=== PATIENT | female | born 1955 | race Caucasian/White ===

== ENCOUNTER 2017-01-10 18:00 | Inpatient (IN) | payer OTHER, BC ==
[~2017-01-10] VITALS: Ht 152.4 cm; Wt 84.5 kg
[~2017-01-10 18:00] MED LIST: ALBUAER PO; ASPI81TA28 PO; ATOR-26 PO; ATV/1 PO; CHOL2000 PO; FERRTAB18 PO; FLUT0.15 NAE; FLV1 PO; FLVHFA110 INH; FRS/40 PO; INSU100I17 SC; INSU1INJ7 SC; IPRA1AER2 INH; LISI-729 PO; METF1000 PO; METO25TA56 PO; NTRGSL/4 UT; ONDA4TAB46 PO; POTA10CA28 PO; PRLSR20 PO; VENL150T33 PO; WARF4TAB PO
[2017-01-10 19:07] LABS: BASO % 0.4 %; BASO ABS # 0.02 K/uL (0-0.2); HEMATOCRIT 24.6 % (37-47); IG% 0.2 %; LYMPH ABS # 1.13 K/uL (1.2-3.4); MEAN CELL VOLUME 80.1 fL (80-100); MEAN CORPUSCULAR HEMOGLOBIN 23.5 pg (25-34); MEAN CORPUSCULAR HGB CONC 29.3 g/dl (32-36); MEAN PLATELET VOLUME 10.1 fL (7.4-10.4); MONO % 10.2 %; NEUT % 62.2 %; PLATELET COUNT 242 K/uL (130-400); RED BLOOD COUNT 3.07 M/uL (4.2-5.4); WHITE BLOOD COUNT 4.52 K/uL (4.8-10.8)
[2017-01-10 19:26] LABS: ALT/SGPT 31 U/L (12-78); BLOOD UREA NITROGEN 14 mg/dl (7-18); BUN/CREATININE RATIO 21.8 (10-20); CALCIUM 9.2 mg/dl (8.5-10.1); CARBON DIOXIDE 28 mmol/L (21-32); CHLORIDE 102 mmol/L (98-107); CREATININE 0.65 mg/dl (0.60-1.20); GLUCOSE 208 mg/dl (70-99); POTASSIUM 3.9 mmol/L (3.5-5.1); SODIUM 138 mmol/L (136-145)
[2017-01-10 19:29] LABS: ALKALINE PHOSPHATASE 71 U/L (45-117); AST/SGOT 30 U/L (15-37)
[2017-01-10 19:36] LABS: INR 5.4 (0.9-1.1); PARTIAL THROMBOPLASTIN RATIO 1.7; PROTHROMBIN TIME (PATIENT) 61.6 SECONDS (9.0-12.0)
[2017-01-10 19:42] LABS: ANISOCYTOSIS PRESENT; COMPLETE YES; HYPOCHROMIA PRESENT; POLYCHROMASIA 1+
--- NOTE | 2017-01-10 20:05 | DIAGNOSTIC IMAGING REPORT ---
ABDOMEN 2VIEW W/PA CHEST RTN CLINICAL HISTORY: ABDOMINAL PAIN/GI COMPARISON STUDY: 07/26/2016 FINDINGS: Moderate cardiomegaly. Prior median sternotomy and valve replacement. Prominent pulmonary vasculature. Nonobstructive bowel pattern. Findings suggesting a ventral hernia repair. IMPRESSION: 1. Nonobstructive bowel pattern. 2. Cardiomegaly. Electronically signed by: Wing Welch M.D. 01/10/2017 8:03 PM Dictated Date/Time: 01/10/2017 8:02 PM
[2017-01-10] MEDS ORDERED: CMD6 PO (20:20)
[2017-01-10] MEDS ORDERED: TRAM-10 PO (20:20)
[2017-01-10] MEDS ORDERED: INSDGI SC (20:21)
[2017-01-10] MEDS ORDERED: DIPH-437 PO (20:27)
[2017-01-10] MEDS ORDERED: INSU100I SQ (20:27)
[2017-01-10] MEDS ORDERED: BSP/5 PO (20:27)
[2017-01-10 20:40] LABS: URINE APPEARANCE CLEAR (CLEAR); URINE BILIRUBIN NEG (NEG); URINE COLOR DK YELLOW; URINE EPITHELIAL CELL AUTO >30 /lpf (0-5); URINE NITRITE NEG (NEG); URINE PH 6.5 (4.5-7.5); URINE SPECIFIC GRAVITY 1.028 (1.000-1.030); UROBILINOGEN NEG (NEG)
[2017-01-10 20:42] LABS: MANUAL MICROSCOPIC REQUIRED? NO; REVIEW REQ? YES
[2017-01-10] MEDS ORDERED: ONDANSETRON INJ 2 MG/ML 2 ML VIAL IV PRN (21:00)
[2017-01-10] MEDS ORDERED: IPRATROPIUM BROMIDE/ALBUTEROL respimat INH INH PRN (21:00)
[2017-01-10] MEDS ORDERED: NITROGLYCERIN 0.4 MG SL PER TAB CHARGE SL PRN (21:00)
[2017-01-10] MEDS ORDERED: FLUTICASONE HFA 110MCG INHALER INH PRN (21:00)
[2017-01-10] MEDS ORDERED: ALBUTEROL HFA 8 GM INHALER INH PRN (21:00)
[2017-01-10] MEDS ORDERED: FLUTICASONE PROPIONATE NA SPR 16 GM BTL NAE PRN (21:00)
[2017-01-10] MEDS ORDERED: GLUCAGON FOR INJ 1 MG VIAL SQ PRN (21:30)
[2017-01-10] MEDS ORDERED: GLUCOSE 40% GEL 15 GM TUBE PO PRN (21:30)
[2017-01-10] MEDS ORDERED: DEXTROSE 50% 50 ML SYR IV PRN (21:30)
[2017-01-10] MEDS ORDERED: GLUCOSE 10 TABS/TUBE PO PRN (21:30)
--- NOTE | 2017-01-10 21:40 | History and Physical ---
History & Physical Date & Time of Service: Jan 10, 2017 at 21:01 Chief Complaint: Need Blood,Dizzy,Referred Primary Care Physician: Luis Melo D.O. History of Present Illness Source: patient This is a 61 y/o female with PMHx of CAD s/p CABG and stent placement, AVR replacement on Coumadin, Insulin-dependent DM 2, HTN, Dyslipidemia and other problems as outlined below who presents to the ED de to abnormal outpatient lab results. Pt received a call from PCP (Dr. Melo) office instructing her to go to the emergency room due to a low hemoglobin of 6.9. Pt does admit she has experienced exertional SOB and occ lightheadedness over the past few days. She has also had intermitted LLQ abd pain. Pt has a history of GI bleed in July 2016 at which time she was transfused 4 units pRBCs. Per patient she had an EGD and colonoscopy however they were unable to find the source of the bleed. She required another transfusion of 4 units in October. Since that time, her HgB has been around 9.5. Pts stool is always dark as she takes an iron pill however she denies hematochezia or melena. She is on Coumadin for an AVR. Pt denies fever/chills, diaphoresis, chest pain, syncope, wheezing, N/V, bowel or bladder issues, LE edema or calf pain. In the ED, vitals are stable. HgB 7.2. INR 5.4. Chest/abd xray is negative. Pt is stable and will be admitted for further evaluation and treatment. Past Medical/Surgical History Medical Problems: (1) ASCVD (arteriosclerotic cardiovascular disease) Status: Chronic (2) Asthma Status: Chronic (3) Cirrhosis Status: Chronic (4) Depression Status: Chronic (5) DM type 2 (diabetes mellitus, type 2) Status: Chronic (6) Dyslipidemia Status: Chronic (7) GERD (gastroesophageal reflux disease) Status: Chronic (8) VIDHI (iron deficiency anemia) Status: Chronic Surgical Problems: (1) H/O aortic valve replacement Status: Chronic (2) H/O pericardiectomy Status: Chronic (3) H/O ventral hernia repair Status: Chronic (4) History of incisional hernia repair Status: Chronic (5) Hx of cholecystectomy Status: Chronic (6) Hx of tonsillectomy Status: Chronic (7) S/P angioplasty with stent Status: Chronic Family History Patient reports no known family medical history. Social History Smoking Status: Never Smoker Alcohol Use: none Drug Use: none Marital Status: Housing status: lives with family Occupational Status: retired Immunizations History of Influenza Vaccine: Yes History of Tetanus Vaccine?: Yes History of Pneumococcal: Yes History of Hepatitis B Vaccine: No Multi-Drug Resistant Organisms History of MDRO: No Allergies Coded Allergies: Erythromycin (Verified Allergy, Mild, 01/10/17) Tetracycline (Verified Allergy, Mild, 01/10/17) Ciprofloxacin (Verified Allergy, Unknown, `, 01/10/17) Hydrocodone (Verified Allergy, Unknown, `, 01/10/17) Sulfa Antibiotics (Verified Allergy, Unknown, Unknown rxn, 01/10/17) Home Medications Scheduled Acetaminophen/Diphenhydramine (Tylenol Pm), 1 TAB PO HS Aspirin (Aspirin Ec), 81 MG PO DAILY Atorvastatin (Lipitor), 80 MG PO QPM Buspirone HCl (Buspirone HCl), 5 MG PO BID Cholecalciferol (Vitamin D3), 2,000 UNIT PO DAILY Folic Acid (Folic Acid), 2 MG PO DAILY Furosemide (Lasix), 40 MG PO BID Insulin Glargine (Lantus), 40 UNITS SC QPM Insulin Lispro (Human) (Humalog), 15 UNITS SQ TIDM Iron-Vitamin C (Vitron-C), 1 TAB PO QPM Lisinopril (Zestril), 5 MG PO QAM Metformin Hcl (Glucophage), 1,000 MG PO BID Metoprolol Tartrate (Lopressor) (Lopressor), 25 MG PO BID Omeprazole (Prilosec), 20 MG PO DAILY Potassium Chloride (Micro-K Ext Rel), 20 MEQ PO AMPM Tramadol (Ultram), 50 MG PO QAM Venlafaxine Hcl (Venlafaxine Hcl Er), 150 MG PO QAM Warfarin Sod (Coumadin), 6 MG PO 5XWK Warfarin Sodium (Coumadin), 4 MG PO 2XWK Scheduled PRN Albuterol Sulfate (Proventil Hfa), 2 PUFFS PO QID PRN for SOB/Wheezing Fluticasone Propionate (Flovent Hfa), 2 PUFFS INH BID PRN for SOB/Wheezing Fluticasone Propionate (Nasal) (Flonase Allergy Relief), 2 SPRAYS BENITO DAILY PRN for Nasal Congestion Ipratropium-Albuterol (Combivent Respimat), 2 PUFFS INH BID PRN for SOB/Wheezing Nitroglycerin (Nitrostat), 0.4 MG UT UD PRN for Chest Pain Ondansetron Hcl (Zofran), 4 MG PO Q6 PRN for Nausea Review of Systems Constitutional: No chills, No fatigue, No fever, No weakness Eyes: No worsening of vision ENT: No hearing loss Respiratory: + dyspnea on exertion, No cough, No dyspnea at rest Cardiovascular: No chest pain, No claudication, No edema, No palpitations Abdomen: + pain (intermittent LLQ pain ), No GI bleeding, No constipation, No diarrhea, No nausea, No vomiting Musculoskeletal: No calf pain, No swelling Genitourinary - Female: No dysuria Neurologic: No weakness Psychiatric: No depression symptoms Endocrine: No fatigue Hematologic / Lymphatic: No abnormal bleeding/bruising Integumentary: No new/changing skin lesions Physical Exam Vital Signs Date Time Temp Pulse Resp B/P Pulse Ox O2 Delivery O2 Flow Rate FiO2 01/10/17 19:09 80 18 107/60 97 Room Air 01/10/17 18:24 36.9 82 18 100/64 97 Room Air General Appearance: WD/WN, no apparent distress, + pertinent finding (Pt is sitting up comfortably in bed ) Head: normocephalic, atraumatic Eyes: normal inspection ENT: hearing grossly normal Neck: supple Respiratory/Chest: chest non-tender, lungs clear, normal breath sounds, no respiratory distress Cardiovascular: regular rate, rhythm, no edema, + systolic murmur (click) Abdomen/GI: soft, + tenderness (mild tenderness to left upper and lower quadrants ), + pertinent finding (diminished bowel sounds) Back: normal inspection Extremities/Musculoskelatal: normal inspection, no calf tenderness, no pedal edema Neurologic/Psych: alert, normal mood/affect, oriented x 3 Skin: normal color Diagnostics Laboratory Results Results Past 24 Hours Test 01/10/17 18:35 01/10/17 20:00 Range/Units White Blood Count 4.52 4.8-10.8 K/uL Red Blood Count 3.07 4.2-5.4 M/uL Hemoglobin 7.2 12.0-16.0 g/dL Hematocrit 24.6 37-47 % Mean Corpuscular Volume 80.1 80-100 fL Mean Corpuscular Hemoglobin 23.5 25-34 pg Mean Corpuscular Hemoglobin Concent 29.3 32-36 g/dl Platelet Count 242 130-400 K/uL Mean Platelet Volume 10.1 7.4-10.4 fL Neutrophils (%) (Auto) 62.2 % Lymphocytes (%) (Auto) 25.0 % Monocytes (%) (Auto) 10.2 % Eosinophils (%) (Auto) 2.0 % Basophils (%) (Auto) 0.4 % Neutrophils # (Auto) 2.81 1.4-6.5 K/uL Lymphocytes # (Auto) 1.13 1.2-3.4 K/uL Monocytes # (Auto) 0.46 0.11-0.59 K/uL Eosinophils # (Auto) 0.09 0-0.5 K/uL Basophils # (Auto) 0.02 0-0.2 K/uL RDW Standard Deviation 51.5 36.4-46.3 fL RDW Coefficient of Variation 17.6 11.5-14.5 % Immature Granulocyte % (Auto) 0.2 % Immature Granulocyte # (Auto) 0.01 0.00-0.02 K/uL Polychromasia 1+ Hypochromasia PRESENT Anisocytosis PRESENT Prothrombin Time 61.6 9.0-12.0 SECONDS Prothromb Time International Ratio 5.4 0.9-1.1 Activated Partial Thromboplast Time 43.2 21.0-31.0 SECONDS Partial Thromboplastin Ratio 1.7 Sodium Level 138 136-145 mmol/L Potassium Level 3.9 3.5-5.1 mmol/L Chloride Level 102 98-107 mmol/L Carbon Dioxide Level 28 21-32 mmol/L Anion Gap 8.0 3-11 mmol/L Blood Urea Nitrogen 14 7-18 mg/dl Creatinine 0.65 0.60-1.20 mg/dl Est Creatinine Clear Calc Drug Dose 86.5 ml/min Estimated GFR () 109.5 Estimated GFR (Non- 94.5 BUN/Creatinine Ratio 21.8 10-20 Random Glucose 208 70-99 mg/dl Calcium Level 9.2 8.5-10.1 mg/dl Total Bilirubin 0.4 0.2-1 mg/dl Direct Bilirubin < 0.1 0-0.2 mg/dl Aspartate Amino Transf (AST/SGOT) 30 15-37 U/L Alanine Aminotransferase (ALT/SGPT) 31 12-78 U/L Alkaline Phosphatase 71 45-117 U/L Total Protein 7.3 6.4-8.2 gm/dl Albumin 3.3 3.4-5.0 gm/dl Lipase 174 73-393 U/L Urine Color DK YELLOW Urine Appearance CLEAR CLEAR Urine pH 6.5 4.5-7.5 Urine Specific [place] 1.028 1.000-1.030 Urine Protein 1+ NEG Urine Glucose (UA) TRACE NEG Urine Ketones NEG NEG Urine Occult Blood NEG NEG Urine Nitrite NEG NEG Urine Bilirubin NEG NEG Urine Urobilinogen NEG NEG Urine Leukocyte Esterase SMALL NEG Urine WBC (Auto) 5-10 0-5 /hpf Urine RBC (Auto) 5-10 0-4 /hpf Urine Hyaline Casts (Auto) 5-10 0-5 /lpf Urine Epithelial Cells (Auto) >30 0-5 /lpf Urine Bacteria (Auto) NEG NEG Urine Renal Epithelial Cells 0-5 /lpf Diagnostic Radiology CXR IMPRESSION: 1. Nonobstructive bowel pattern. 2. Cardiomegaly. EKG EKG: NSR at 80 bom with no acute ischemic changes; no change when compared with EKG from 01/10/17 Impression Assessment and Plan ANEMIA; ? GI BLEED pt presented to the ED due to abnormal outpatient labs (HgB 6.9) -admit to telemetry -RFs include anticoagulation -FOBT is positive in ED -colonoscopy 07/2016 negative; EGD 07/2016 + gastritis otherwise unremarkable -Hgb currently 7.2; will continue to monitor with H&H q 8h -transfuse 2 units pRBCs now; cont to transfuse PRN -hold ASA and Coumadin -start Protonix -consult GI, Dr. Wasserman-pending input -pt appears to be hemodynamically stable -continue to monitor closely SUPRATHERAPEUTIC INR -INR 5.4 -hold Coumadin -monitor INR daily INSULIN-DEPENDENT DM 2 -recent A1C 7.7 -hold Metformin, Lantus and Humalog -start ISS -cont to monitor BSG AC HS H/O AORTIC VALVE REPLACEMENT -AVR 2003 -hold Coumadin in setting of possible GI bleed CORONARY ARTERY DISEASE -s/p CABG x 1 in 2010 and stent x 2 in Jun 2016 -hold ASA -cont metoprolol and statin -pt currently denies chest pain ASTHMA; MILD PERSISTENT -cont inhalers -no evidence of exacerbation DEPRESSION/ANXIETY -son in October at the age of 39; pt is slowly recovering but states she is doing better -cont Effexor and Buspar HTN -BP stable -cont lisinopril and metoprolol -monitor DYSLIPIDEMIA -cont statin DVT PROPHYLAXIS -SCDs only in setting of GI bleed CODE STATUS -FULL CODE status DISPO Pt seen in collaboration with Dr Miranda. Please see his addendum for further details. Thanks! -Of note: patient will be followed by Dr. Verdin starting tomorrow AM. VTE Prophylaxis VTE Risk Assessment Done? Y/N: Yes Risk Level: Moderate Note ATTENDING ADDENDUM Record reviewed. Patient interviewed and examined. Care coordinated with Loida Payne PA-C. Please refer to her documentation for patient's history. Briefly, 61 YO female with history of chronic blood loss anemia. Other problems include CAD, CHF, AVR on warfarin, hypertension, DM. EGD March 2016 was negative. Colonoscopy 2013 showed adenomatous polyp. Patient indicates that she has also had capsule endoscopy. Recurrent anemia Jul 2016. Transfused with 4 units pRBC's. EGD showed mild gastritis without active bleeding. Colonoscopy revealed hemorrhoids, small polyp. Presented to ED with fatigue and SOB. Hgb = 7.0. Stools brown, heme +. EXAM: General- no acute distress VS- as noted HEENT- anicteric Neck- slight JVD; ? diffuse thyromegaly Lungs- clear Heart- RRR, mechanical valve sounds aortic position Abdomen- + BS, soft, nontender Extremities- no pretibial edema or calf tenderness Neuro- alert DATA: Lab studies as noted. CXR- cardiomegaly without CHF. EKG- NSR, no acute changes ASSESSMENT AND PLAN: Anemia due to chronic GI blood loss. Must continue warfarin and antiplatelet meds due to [facility] AVR, CAD with stents. Has undergone at least 2 EGD's and 2 colonoscopies over the past 2 years; also had capsule endoscopy. No need to repeat GI work-up at this time. Transfuse to maintain adequate Hgb, tentatively > 9. INR elevated. Best to hold, but not reverse, warfarin. Follow INR and titrate warfarin dose. ? thyromegaly- check TSH. Please refer to EDILIA Payne's documentation for discussion of other issues. Leobardo Miranda MD .
[2017-01-10 22:44] VITALS: Ht 152.4 cm; Wt 84.5 kg
[2017-01-10 23:35] VITALS: BP 103/63; PULSE 78; TEMP 36.6; O2SAT 96
[2017-01-10] MEDS: ATORVASTATIN 40 MG TAB PO SCH (23:59)
[2017-01-10] MEDS: FUROSEMIDE 40 MG TAB PO SCH (23:59)
[2017-01-11] VITALS (16 sets, daily range): BP systolic 91–135; BP diastolic 57–79; PULSE 65–90; TEMP 36.4–36.8; O2SAT 92–98
[2017-01-11] MEDS: POTASSIUM CHLORIDE 10 MEQ TABCR PO SCH ×3 (00:01→21:19)
[2017-01-11] MEDS: METOPROLOL TARTRATE 25 MG TAB PO SCH ×3 (00:03→21:20)
[2017-01-11] MEDS: ACETAMINOPHEN 325 MG TAB PO PRN ×2 (00:07→21:22)
--- NOTE | 2017-01-11 02:35 | EMERGENCY ROOM VISIT NOTE ---
ED Visit Note First contact with patient: 18:32 Chief Complaint: Low hemoglobin and hematocrit testing. History of Present Illness: Ms. Reyes is a 61-year-old white female who ambulates into the ED accompanied by her daughter reporting she had a hemoglobin and hematocrit testing done earlier today and was found to be low and she was referred to the ED for further evaluation and care. Historically patient reports she had a GI bleed last July and since that time has had moderate anemia. She is currently doing iron supplements the last 2 months. Additionally she reports that she is status post aortic valve replacement and is currently on Coumadin therapy. Currently patient's only complaints is mild lightheadedness and intermittent mild left lower quadrant abdominal pain over the last 30 days. Currently she is pain-free but does report that she has lightheadedness with moving from the sitting to the standing position. She has no other complaints at this time and denies headache, upper respiratory tract symptoms, cough, wheezing, shortness of breath, chest pain, abdominal pain , nausea, vomiting, diarrhea, constipation, rectal bleeding, black/tarry stools , urinary symptoms, hematuria, easy bleeding, easy bruising. Review of Systems: As noted above in history of present illness. All body systems were reviewed and found to be negative as noted above. Past Medical History: (1) Anemia (2) ASCVD (arteriosclerotic cardiovascular disease) (3) Asthma (4) Cirrhosis (5) Depression (6) DM type 2 (diabetes mellitus, type 2) (7) Dyslipidemia (8) GERD (gastroesophageal reflux disease) (9) VIDHI (iron deficiency anemia) Surgical Problems: (1) H/O aortic valve replacement (2) H/O pericardiectomy (3) H/O ventral hernia repair (4) History of incisional hernia repair (5) Hx of cholecystectomy (6) Hx of tonsillectomy (7) S/P angioplasty with stent Current Medications: Medications Dose Route/Sig Max Daily Dose Days Date Category Dose Instructions Tylenol Pm (Acetaminophen/Diphenhydramine HCl) 500 Mg/25 Mg Tab 1 Tab PO HS 01/10/17 Reported Buspirone HCl 5 Mg Tab 5 Mg PO BID 01/10/17 Reported Humalog (Insulin Lispro (Human)) 100 Unit/Ml Inj 15 Units SQ TIDM 01/10/17 Reported Lantus (Insulin Glargine) 100 Unit/Ml Inj 40 Units SC QPM 3/27/17 Reported Ultram (Tramadol HCl) 50 Mg Tab 50 Mg PO QAM 01/10/17 Reported Coumadin (Warfarin Sod) 6 Mg Tab 6 Mg PO 5XWK 01/10/17 Reported Flonase Allergy Relief (Fluticasone Propionate (Nasal)) 50 Mcg/Act Spr 2 Sprays BENITO DAILY PRN 07/26/16 Reported Proventil Hfa (Albuterol Sulfate) 108 Mcg/Act Aer 2 Puffs PO QID PRN 07/26/16 Reported Flovent Hfa (Fluticasone Propionate) 120 Puffs/48174 Mcg Aero 2 Puffs INH BID PRN 07/26/16 Reported Zofran (Ondansetron HCl) 4 Mg Tab 4 Mg PO Q6 PRN 07/26/16 Reported Vitamin D3 (Cholecalciferol) 2,000 Unit Cap 2,000 Unit PO DAILY 07/26/16 Reported Venlafaxine Hcl Er (Venlafaxine Hcl) 150 Mg Tab 150 Mg PO QAM 07/26/16 Reported Lipitor (Atorvastatin Calcium) 80 Mg Tab 80 Mg PO QPM 07/26/16 Reported Prilosec (Omeprazole) 20 Mg Capcr 20 Mg PO DAILY 07/26/16 Reported Nitrostat (Nitroglycerin) 0.4 Mg Tab 0.4 Mg UT UD PRN 07/26/16 Reported Coumadin (Warfarin Sodium) 4 Mg Tab 4 Mg PO 2XWK 07/26/16 Reported TUESDAY AND TUESDAY ONLY Combivent Respimat (Ipratropium-Albuterol) 1 Aer Aer 2 Puffs INH BID PRN 07/26/16 Reported Aspirin Ec (Aspirin) 81 Mg Tab 81 Mg PO DAILY 07/26/16 Reported Vitron-C (Iron-Vitamin C) 1 Tab Tab 1 Tab PO QPM 02/18/16 Reported Folic Acid 1 Mg Tab 2 Mg PO DAILY 02/18/16 Reported Glucophage (Metformin Hcl) 1,000 Mg Tab 1,000 Mg PO BID 01/24/12 Reported Lopressor (Metoprolol Tartrate) 25 Mg Tab 25 Mg PO BID 01/24/12 Reported Zestril (Lisinopril) 5 Mg Tab 5 Mg PO QAM 01/24/12 Reported Lasix (Furosemide) 40 Mg Tab 40 Mg PO BID 10/12/06 Reported Micro-K Ext Rel (Potassium Chloride) 10 Meq Capcr 20 Meq PO AMPM 10/12/06 Reported Allergies to Medications: Ciprofloxacin, erythromycin, hydrocodone, sulfa, tetracycline. Social History: Patient is currently retired; she feels safe in her home environment; she denies tobacco and alcohol use. Physical Examination: Vital Signs: Date Time Temp Pulse Resp B/P Pulse Ox O2 Delivery O2 Flow Rate FiO2 01/10/17 19:09 80 18 107/60 97 Room Air 01/10/17 18:24 36.9 82 18 100/64 97 Room Air GENERAL: 61-year-old female in no acute distress, nontoxic-appearing, afebrile and hemodynamically stable. NEUROLOGICAL: Awake, alert and oriented to person, place and time. Answering questions appropriately and following commands. Normal gait. Good hand eye coordination. No focal motor sensory deficits. SKIN: Warm, dry and pale. No soft tissue eruptions or trauma noted. HEENT: Atraumatic and normocephalic. PERRLA. Sclera white and conjunctiva pale. No drainage from naris. Oral cavity moist and pink. Pharynx is nonerythematous or edematous. Speech normal. No lymphadenopathy. Trachea midline. No jugular venous distention. BACK: No tenderness over the bony spine. No CVA tenderness. THORAX: Lungs sounds are clear to auscultation and equal bilaterally with symmetrical chest wall. No wheezing, rales or rhonchi. No crepitus, tenderness , subcutaneous air or deformities noted. HEART: Regular rate and rhythm. No gallops, rubs or murmurs are appreciated. ABDOMEN: Flat, soft and nontender. Positive bowel sounds in all quadrants. No guarding, rigidity or organomegaly. RECTAL: There are some few small hemorrhoids externally with no active bleeding. Normal rectal tone. No palpable rectal masses. No gross blood or melena. Trace positive guaiac testing. EXTREMITIES: Moves all extremities well on command and with purpose. All distal neurovascular statuses are intact and equal bilaterally. No calf tenderness or cords. ED Course: Patient is assessed as noted above. Laboratory Testing: Test 01/10/17 18:35 01/10/17 20:00 Range/Units White Blood Count 4.52 4.8-10.8 K/uL Red Blood Count 3.07 4.2-5.4 M/uL Hemoglobin 7.2 12.0-16.0 g/dL Hematocrit 24.6 37-47 % Mean Corpuscular Volume 80.1 80-100 fL Mean Corpuscular Hemoglobin 23.5 25-34 pg Mean Corpuscular Hemoglobin Concent 29.3 32-36 g/dl Platelet Count 242 130-400 K/uL Mean Platelet Volume 10.1 7.4-10.4 fL Neutrophils (%) (Auto) 62.2 % Lymphocytes (%) (Auto) 25.0 % Monocytes (%) (Auto) 10.2 % Eosinophils (%) (Auto) 2.0 % Basophils (%) (Auto) 0.4 % Neutrophils # (Auto) 2.81 1.4-6.5 K/uL Lymphocytes # (Auto) 1.13 1.2-3.4 K/uL Monocytes # (Auto) 0.46 0.11-0.59 K/uL Eosinophils # (Auto) 0.09 0-0.5 K/uL Basophils # (Auto) 0.02 0-0.2 K/uL RDW Standard Deviation 51.5 36.4-46.3 fL RDW Coefficient of Variation 17.6 11.5-14.5 % Immature Granulocyte % (Auto) 0.2 % Immature Granulocyte # (Auto) 0.01 0.00-0.02 K/uL Polychromasia 1+ Hypochromasia PRESENT Anisocytosis PRESENT Prothrombin Time 61.6 9.0-12.0 SECONDS Prothromb Time International Ratio 5.4 0.9-1.1 Activated Partial Thromboplast Time 43.2 21.0-31.0 SECONDS Partial Thromboplastin Ratio 1.7 Sodium Level 138 136-145 mmol/L Potassium Level 3.9 3.5-5.1 mmol/L Chloride Level 102 98-107 mmol/L Carbon Dioxide Level 28 21-32 mmol/L Anion Gap 8.0 3-11 mmol/L Blood Urea Nitrogen 14 7-18 mg/dl Creatinine 0.65 0.60-1.20 mg/dl Est Creatinine Clear Calc Drug Dose 86.5 ml/min Estimated GFR () 109.5 Estimated GFR (Non- 94.5 BUN/Creatinine Ratio 21.8 10-20 Random Glucose 208 70-99 mg/dl Calcium Level 9.2 8.5-10.1 mg/dl Total Bilirubin 0.4 0.2-1 mg/dl Direct Bilirubin < 0.1 0-0.2 mg/dl Aspartate Amino Transf (AST/SGOT) 30 15-37 U/L Alanine Aminotransferase (ALT/SGPT) 31 12-78 U/L Alkaline Phosphatase 71 45-117 U/L Total Protein 7.3 6.4-8.2 gm/dl Albumin 3.3 3.4-5.0 gm/dl Lipase 174 73-393 U/L Urine Color DK YELLOW Urine Appearance CLEAR CLEAR Urine pH 6.5 4.5-7.5 Urine Specific [place] 1.028 1.000-1.030 Urine Protein 1+ NEG Urine Glucose (UA) TRACE NEG Urine Ketones NEG NEG Urine Occult Blood NEG NEG Urine Nitrite NEG NEG Urine Bilirubin NEG NEG Urine Urobilinogen NEG NEG Urine Leukocyte Esterase SMALL NEG Urine WBC (Auto) 5-10 0-5 /hpf Urine RBC (Auto) 5-10 0-4 /hpf Urine Hyaline Casts (Auto) 5-10 0-5 /lpf Urine Epithelial Cells (Auto) >30 0-5 /lpf Urine Bacteria (Auto) NEG NEG Urine Renal Epithelial Cells 0-5 /lpf Acute Abdominal Series: Was read by myself and the radiologist showing no acute infiltrates, effusions or pneumothorax. Cardiomegaly. No free air under the diaphragm. Nonobstructive bowel gas pattern. Patient was reassessed multiple times during her stay in the emergency department. Patient's case was reviewed with Dr. Wilson; we agreed on diagnostic approach , treatment, disposition and plan. Patient's case was consulted with Dr. Lee, [facility] [employer]; he recommended a watch and wait approach for her laboratory tests to see how they will trend. Patient's case was consulted with disease case manager rn and Ms. Arredondo, [facility], for medical observation/admission. Patient was educated about tonight's findings. Clinical Impression: Acute on chronic anemia. Supratherapeutic INR. Decision-Making: Initially my differential diagnosis I considered multiple causes of upper and lower GI tract bleeding, elevated INR and other causes. Disposition and Plan: Patient be brought in the hospital by Ms. Payne; please see her notes and orders for final disposition and plan.
[2017-01-11 02:59] LABS: HEMATOCRIT 24.7 % (37-47)
[2017-01-11] MEDS ORDERED: ACETAMINOPHEN 325 MG TAB PO STA (04:27)
[2017-01-11 06:53] LABS: OVALOCYTES 1+
[2017-01-11] MEDS: PANTOprazole INJ 40 MG in SYRINGE 0 ML IV SCH (08:48)
[2017-01-11] MEDS: VENLAFAXINE HCL XR 150 MG CAPXR PO SCH (08:48)
[2017-01-11] MEDS: LISINOPRIL 5 MG TAB PO SCH (08:49)
[2017-01-11] MEDS: FUROSEMIDE 40 MG TAB PO SCH ×2 (08:49→17:16)
[2017-01-11] MEDS: CHOLECALCIFEROL 1000 INTER.UNIT TAB PO SCH (08:50)
[2017-01-11] MEDS: INSULIN ASPART 100 UNITS/ML 3 ML PEN SC SCH ×4 (08:53→21:31)
[2017-01-11] MEDS ORDERED: PANTOprazole SOD 40 MG TAB PO SCH (09:00)
[2017-01-11] MEDS: TRAMADOL HCL 50 MG TAB PO SCH (09:03)
--- NOTE | 2017-01-11 09:35 | Gastrointestinal Consultation ---
Gastrointestinal Consultation Date of Consultation: Jan 11, 2017 Consulting Physician: Paulo Reason for Consultation: anemia, history of GI bleed, black stools History of Present Illness Patient is a 61 year old female with past medical history significant for history of GI bleed (July), anemia requiring hospitalization(July, ), CAD s/p CABG and stent placement, AVR replacement on Coumadin, DMT2, HTN and dyslipidemia who presented yesterday in the ED after outpatient lab testing with a HGB of 6.9. Ms. Reyes had been feeling SOB and fatigued over the past few weeks but was not aware that anything was wrong. Her only complaint today is issues with hernia repair with mesh that has been recalled. She reports she has an appointment for repair in [place] for this. She denies any abdominal pain, bloody stools, hematemesis or coffee ground emesis. She has been having black stools since she started PO iron. Stools are always well, formed. Denies any black, sticky/tarry stools. HGB on admission was 7. She has just finished her first unit of blood. Repeat HGB not resulted yet. KUB 01/10/17: Moderate cardiomegaly. Prior median sternotomy and valve replacement. Prominent pulmonary vasculature. Nonobstructive bowel pattern. Findings suggesting a ventral hernia repair. Colonoscopy 07/27/16: non-thrombosed external hemorrhoids - no source of bleeding identified EGD 07/27/16: gastritis, single gastric polyp - no source of bleeding identified Past Medical/Surgical History Social History Problems: (1) Mechanical heart valve present Status: Acute Family History Patient reports no known family medical history. Social History Smoking Status: Never Smoker Alcohol Use: none Drug Use: none Marital Status: Occupation Status: retired Allergies Coded Allergies: Erythromycin (Verified Allergy, Mild, 01/10/17) Tetracycline (Verified Allergy, Mild, 01/10/17) Ciprofloxacin (Verified Allergy, Unknown, `, 01/10/17) Hydrocodone (Verified Allergy, Unknown, `, 01/10/17) Sulfa Antibiotics (Verified Allergy, Unknown, Unknown rxn, 01/10/17) Current Medications Home Meds and Scripts Medications Dose Route/Sig Max Daily Dose Days Date Category Dose Instructions Tylenol Pm (Acetaminophen/Diphenhydramine HCl) 500 Mg/25 Mg Tab 1 Tab PO HS 01/10/17 Reported Buspirone HCl 5 Mg Tab 5 Mg PO BID 01/10/17 Reported Humalog (Insulin Lispro (Human)) 100 Unit/Ml Inj 15 Units SQ TIDM 01/10/17 Reported Lantus (Insulin Glargine) 100 Unit/Ml Inj 40 Units SC QPM 01/10/17 Reported Ultram (Tramadol HCl) 50 Mg Tab 50 Mg PO QAM 01/10/17 Reported Coumadin (Warfarin Sod) 6 Mg Tab 6 Mg PO 5XWK 01/10/17 Reported Flonase Allergy Relief (Fluticasone Propionate (Nasal)) 50 Mcg/Act Spr 2 Sprays BENITO DAILY PRN 07/26/16 Reported Proventil Hfa (Albuterol Sulfate) 108 Mcg/Act Aer 2 Puffs PO QID PRN 07/26/16 Reported Flovent Hfa (Fluticasone Propionate) 120 Puffs/95830 Mcg Aero 2 Puffs INH BID PRN 07/26/16 Reported Zofran (Ondansetron HCl) 4 Mg Tab 4 Mg PO Q6 PRN 07/26/16 Reported Vitamin D3 (Cholecalciferol) 2,000 Unit Cap 2,000 Unit PO DAILY 07/26/16 Reported Venlafaxine Hcl Er (Venlafaxine Hcl) 150 Mg Tab 150 Mg PO QAM 07/26/16 Reported Lipitor (Atorvastatin Calcium) 80 Mg Tab 80 Mg PO QPM 07/26/16 Reported Prilosec (Omeprazole) 20 Mg Capcr 20 Mg PO DAILY 07/26/16 Reported Nitrostat (Nitroglycerin) 0.4 Mg Tab 0.4 Mg UT UD PRN 07/26/16 Reported Coumadin (Warfarin Sodium) 4 Mg Tab 4 Mg PO 2XWK 07/26/16 Reported TUESDAY AND TUESDAY ONLY Combivent Respimat (Ipratropium-Albuterol) 1 Aer Aer 2 Puffs INH BID PRN 07/26/16 Reported Aspirin Ec (Aspirin) 81 Mg Tab 81 Mg PO DAILY 07/26/16 Reported Vitron-C (Iron-Vitamin C) 1 Tab Tab 1 Tab PO QPM 02/18/16 Reported Folic Acid 1 Mg Tab 2 Mg PO DAILY 02/18/16 Reported Glucophage (Metformin Hcl) 1,000 Mg Tab 1,000 Mg PO BID 01/24/12 Reported Lopressor (Metoprolol Tartrate) 25 Mg Tab 25 Mg PO BID 01/24/12 Reported Zestril (Lisinopril) 5 Mg Tab 5 Mg PO QAM 01/24/12 Reported Lasix (Furosemide) 40 Mg Tab 40 Mg PO BID 10/12/06 Reported Micro-K Ext Rel (Potassium Chloride) 10 Meq Capcr 20 Meq PO AMPM 10/12/06 Reported Review of Systems Constitutional: No chills, No fever Respiratory: No cough, No shortness of breath Cardiac: No chest pain, No edema Abdomen: + pain (generalized dull tenderness, intermittent sharp LLQ), + problem reported (black formed stools on iron), No GI bleeding, No constipation , No diarrhea, No nausea, No vomiting Physical Exam Date Time Temp Pulse Resp B/P Pulse Ox O2 Delivery O2 Flow Rate FiO2 01/11/17 08:30 36.6 78 18 118/64 97 01/11/17 07:30 36.4 74 18 115/68 92 01/11/17 07:21 36.8 90 22 114/65 97 Nasal Cannula 2.0 01/11/17 06:34 36.4 72 18 121/72 98 01/11/17 06:01 36.8 76 18 98/61 95 01/11/17 05:45 36.8 75 18 98/63 95 01/11/17 05:29 36.7 73 20 99/62 96 01/11/17 04:14 36.7 78 18 91/57 96 Room Air 01/11/17 03:55 Room Air 01/11/17 00:00 Room Air 01/10/17 23:35 36.6 78 18 103/63 96 01/10/17 22:44 Room Air 01/10/17 21:55 78 18 117/56 97 01/10/17 21:00 84 18 117/56 98 Room Air 01/10/17 19:09 80 18 107/60 97 Room Air 01/10/17 18:24 36.9 82 18 100/64 97 Room Air General Appearance: no apparent distress Eyes: normal inspection ENT: hearing grossly normal Neck: supple, trachea midline Cardiovascular: regular rate, rhythm, + pertinent finding (systolic click) Abdomen: normal bowel sounds, soft, no organomegaly, no pulsatile mass, + tenderness (generalized tenderness) Extremities: no pedal edema Neurologic/Psych: alert, normal mood/affect, oriented x 3 Skin: normal color, no jaundice, warm/dry, no rash Laboratory Results Last 24 Hours Test 01/10/17 18:35 01/10/17 20:00 01/11/17 01:55 01/11/17 07:39 White Blood Count 4.52 K/uL Red Blood Count 3.07 M/uL Hemoglobin 7.2 g/dL 7.0 g/dL Hematocrit 24.6 % 24.7 % Mean Corpuscular Volume 80.1 fL Mean Corpuscular Hemoglobin 23.5 pg Mean Corpuscular Hemoglobin Concent 29.3 g/dl Platelet Count 242 K/uL Mean Platelet Volume 10.1 fL Neutrophils (%) (Auto) 62.2 % Lymphocytes (%) (Auto) 25.0 % Monocytes (%) (Auto) 10.2 % Eosinophils (%) (Auto) 2.0 % Basophils (%) (Auto) 0.4 % Neutrophils # (Auto) 2.81 K/uL Lymphocytes # (Auto) 1.13 K/uL Monocytes # (Auto) 0.46 K/uL Eosinophils # (Auto) 0.09 K/uL Basophils # (Auto) 0.02 K/uL RDW Standard Deviation 51.5 fL RDW Coefficient of Variation 17.6 % Immature Granulocyte % (Auto) 0.2 % Immature Granulocyte # (Auto) 0.01 K/uL Polychromasia 1+ Hypochromasia PRESENT Anisocytosis PRESENT Ovalocytes 1+ Prothrombin Time 61.6 SECONDS Prothromb Time International Ratio 5.4 Activated Partial Thromboplast Time 43.2 SECONDS Partial Thromboplastin Ratio 1.7 Sodium Level 138 mmol/L Potassium Level 3.9 mmol/L Chloride Level 102 mmol/L Carbon Dioxide Level 28 mmol/L Anion Gap 8.0 mmol/L Blood Urea Nitrogen 14 mg/dl Creatinine 0.65 mg/dl Est Creatinine Clear Calc Drug Dose 86.5 ml/min Estimated GFR () 109.5 Estimated GFR (Non- 94.5 BUN/Creatinine Ratio 21.8 Random Glucose 208 mg/dl Calcium Level 9.2 mg/dl Total Bilirubin 0.4 mg/dl Direct Bilirubin < 0.1 mg/dl Aspartate Amino Transf (AST/SGOT) 30 U/L Alanine Aminotransferase (ALT/SGPT) 31 U/L Alkaline Phosphatase 71 U/L Total Protein 7.3 gm/dl Albumin 3.3 gm/dl Lipase 174 U/L Urine Color DK YELLOW Urine Appearance CLEAR Urine pH 6.5 Urine Specific Line [place] 1.028 Urine Protein 1+ Urine Glucose (UA) TRACE Urine Ketones NEG Urine Occult Blood NEG Urine Nitrite NEG Urine Bilirubin NEG Urine Urobilinogen NEG Urine Leukocyte Esterase SMALL Urine WBC (Auto) 5-10 /hpf Urine RBC (Auto) 5-10 /hpf Urine Hyaline Casts (Auto) 5-10 /lpf Urine Epithelial Cells (Auto) >30 /lpf Urine Bacteria (Auto) NEG Urine Renal Epithelial Cells /lpf Bedside Glucose 162 mg/dl Impression Patient is a 61 year old female with history of GI bleed who is admitted for symptomatic anemia with a HGB of 6.9. Currently, no evidence of GI bleeding, black formed BM but is on PO Iron. Her INR is elevated to 5.4. FOBT+ in the ED. She is not agreeable to colonoscopy but would proceed with EGD. Plan Trend H&H Transfuse as needed PPI BID Monitor stools Hold coumadin and aspirin until coumadin in acceptable range NPO after midnight ?EGD tomorrow with Dr. Bates pending attending input
[2017-01-11 12:22] LABS: HEMATOCRIT 26.9 % (37-47)
[2017-01-11 12:42] LABS: INR 3.3 (0.9-1.1); PROTHROMBIN TIME (PATIENT) 36.8 SECONDS (9.0-12.0)
[2017-01-11 12:45] LABS: BUN/CREATININE RATIO 20.3 (10-20); CALCIUM 8.4 mg/dl (8.5-10.1); CREATININE 0.62 mg/dl (0.60-1.20); POTASSIUM 3.6 mmol/L (3.5-5.1)
--- NOTE | 2017-01-11 15:43 | Progress Note ---
Subjective Date of Service: Jan 11, 2017. Subjective Pt evaluation today including: conversation w/ patient, physical exam, lab review, review of studies, review of inpatient medication list Saw/examined the patient in room 277 presented to the ER after being sent by PCP due to low Hgb she has had problems with anemia in the past, has had multiple EGDs and colonoscopies in the past with no findings She states she feels fine, no problems currently Problem List Social History Problems: (1) Mechanical heart valve present Status: Acute Review of Systems Constitutional: No chills, No fever, No weakness Respiratory: No cough, No shortness of breath, No sputum Cardiac: No chest pain, No edema, No palpitations Abdomen: No GI bleeding, No constipation, No diarrhea, No nausea, No pain, No vomiting Heme: No abnormal bleeding/bruising Medications Current Inpatient Medications Medications (Trade) Dose Ordered Sig/[place] Route Start Time Stop Time Status Last Admin Dose Admin Acetaminophen (Tylenol Tab) 650 mg Q4H PRN PO 01/10/17 21:00 02/09/17 20:59 01/11/17 00:07 650 MG Ondansetron HCl (Zofran Inj) 4 mg Q6H PRN IV 01/10/17 21:00 02/09/17 20:59 Nitroglycerin (Nitrostat Tab) 0.4 mg UD PRN SL 01/10/17 21:00 02/09/17 20:59 Albuterol (Ventolin Hfa Inhaler) 2 puffs QID PRN INH 01/10/17 21:00 02/09/17 20:59 Atorvastatin Calcium (Lipitor Tab) 80 mg QPM PO 01/10/17 21:00 02/09/17 20:59 01/10/17 23:59 80 MG Buspirone HCl (Buspar Tab) 5 mg BID PO 01/10/17 21:00 02/09/17 20:59 01/11/17 08:49 5 MG Fluticasone Propionate (Flovent Hfa 110MCG Inhaler) 2 puffs BID PRN INH 01/10/17 21:00 02/09/17 20:59 Fluticasone Propionate (Flonase Nasal [place]) 2 sprays DAILY PRN BENITO 01/10/17 21:00 02/09/17 20:59 Folic Acid (Folvite Tab) 2 mg DAILY PO 01/11/17 09:00 02/10/17 08:59 01/11/17 08:49 2 MG Furosemide (Lasix Tab) 40 mg BID17 PO 01/10/17 21:00 02/09/17 20:59 01/11/17 08:49 40 MG Albuterol/ Ipratropium (Combivent Respimat Inh) 2 puffs BID PRN INH 01/10/17 21:00 02/09/17 20:59 Lisinopril (Zestril Tab) 5 mg QAM PO 01/11/17 09:00 02/10/17 08:59 01/11/17 08:49 5 MG Metoprolol Tartrate (Lopressor Tab) 25 mg BID PO 01/10/17 21:00 02/09/17 20:59 01/11/17 08:48 25 MG Potassium Chloride (Klor-Con M10) 20 meq BID PO 01/10/17 21:00 02/09/17 20:59 01/11/17 08:50 20 MEQ Tramadol HCl (Ultram Tab) 50 mg QAM PO 01/11/17 09:00 02/10/17 08:59 01/11/17 09:03 50 MG Venlafaxine HCl (effeXOR EXTENDED REL CAP) 150 mg QAM PO 01/11/17 09:00 02/10/17 08:59 01/11/17 08:48 150 MG Cholecalciferol (Vitamin D Tab) 2,000 inter.unit DAILY PO 01/11/17 09:00 02/10/17 08:59 01/11/17 08:50 2,000 INTER.UNIT Miscellaneous Information (Order Awaiting Action) 1 ea QS N/A 01/11/17 00:00 02/10/17 00:00 Pantoprazole Sodium (Protonix Tab) 40 mg DAILY PO 01/11/17 09:00 02/10/17 08:59 Future Hold Insulin Aspart (novoLOG ASPART) SLIDING SCALE If C... ACHS SC 01/11/17 06:30 02/10/17 06:59 01/11/17 13:32 6 UNITS Glucose (Glucose 40% Gel) 15-30 GRAMS 15 GRAMS... UD PRN PO 01/10/17 21:30 02/09/17 21:29 Glucose (Glucose Chew Tab) 4-8 Tablets 4 Tabl... UD PRN PO 01/10/17 21:30 02/09/17 21:29 Dextrose (Dextrose 50% 50ML Syringe) 25-50ML OF 50% DW IV FOR... UD PRN IV 01/10/17 21:30 02/09/17 21:29 Glucagon 1 mg 1 mg UD PRN SQ 01/10/17 21:30 02/09/17 21:29 Pantoprazole Sodium/Syringe (Protonix Inj/ Syringe) 10 ml @ 40 mls/min DAILY IV 01/11/17 09:00 02/10/17 08:59 01/11/17 08:48 40 MLS/MIN Objective Vital Signs Date Time Temp Pulse Resp B/P Pulse Ox O2 Delivery O2 Flow Rate FiO2 01/11/17 14:34 36.7 70 20 101/64 97 Room Air 01/11/17 12:00 Room Air 01/11/17 11:45 36.7 65 18 113/70 92 01/11/17 08:30 36.6 78 18 118/64 97 01/11/17 08:00 Room Air 01/11/17 07:30 36.4 74 18 115/68 92 01/11/17 07:21 36.8 90 22 114/65 97 Nasal Cannula 2.0 01/11/17 06:34 36.4 72 18 121/72 98 01/11/17 06:01 36.8 76 18 98/61 95 01/11/17 05:45 36.8 75 18 98/63 95 01/11/17 05:29 36.7 73 20 99/62 96 01/11/17 04:14 36.7 78 18 91/57 96 Room Air 01/11/17 03:55 Room Air 01/11/17 00:00 Room Air 01/10/17 23:35 36.6 78 18 103/63 96 01/10/17 22:44 Room Air 01/10/17 21:55 78 18 117/56 97 01/10/17 21:00 84 18 117/56 98 Room Air 01/10/17 19:09 80 18 107/60 97 Room Air 01/10/17 18:24 36.9 82 18 100/64 97 Room Air Physical Exam General Appearance: no apparent distress Respiratory/Chest: lungs clear, normal breath sounds, no respiratory distress, no accessory muscle use Cardiovascular: regular rate, rhythm, no edema, no murmur Abdomen: normal bowel sounds, non tender, soft Extremities: normal inspection, no pedal edema Neurologic/Psychiatric: no motor/sensory deficits, alert, normal mood/affect Laboratory Results Last 24 Hours Test 01/10/17 18:35 01/10/17 20:00 01/11/17 01:55 01/11/17 07:39 White Blood Count 4.52 K/uL Red Blood Count 3.07 M/uL Hemoglobin 7.2 g/dL 7.0 g/dL Hematocrit 24.6 % 24.7 % Mean Corpuscular Volume 80.1 fL Mean Corpuscular Hemoglobin 23.5 pg Mean Corpuscular Hemoglobin Concent 29.3 g/dl Platelet Count 242 K/uL Mean Platelet Volume 10.1 fL Neutrophils (%) (Auto) 62.2 % Lymphocytes (%) (Auto) 25.0 % Monocytes (%) (Auto) 10.2 % Eosinophils (%) (Auto) 2.0 % Basophils (%) (Auto) 0.4 % Neutrophils # (Auto) 2.81 K/uL Lymphocytes # (Auto) 1.13 K/uL Monocytes # (Auto) 0.46 K/uL Eosinophils # (Auto) 0.09 K/uL Basophils # (Auto) 0.02 K/uL RDW Standard Deviation 51.5 fL RDW Coefficient of Variation 17.6 % Immature Granulocyte % (Auto) 0.2 % Immature Granulocyte # (Auto) 0.01 K/uL Polychromasia 1+ Hypochromasia PRESENT Anisocytosis PRESENT Ovalocytes 1+ Prothrombin Time 61.6 SECONDS Prothromb Time International Ratio 5.4 Activated Partial Thromboplast Time 43.2 SECONDS Partial Thromboplastin Ratio 1.7 Sodium Level 138 mmol/L Potassium Level 3.9 mmol/L Chloride Level 102 mmol/L Carbon Dioxide Level 28 mmol/L Anion Gap 8.0 mmol/L Blood Urea Nitrogen 14 mg/dl Creatinine 0.65 mg/dl Est Creatinine Clear Calc Drug Dose 86.5 ml/min Estimated GFR () 109.5 Estimated GFR (Non- 94.5 BUN/Creatinine Ratio 21.8 Random Glucose 208 mg/dl Calcium Level 9.2 mg/dl Total Bilirubin 0.4 mg/dl Direct Bilirubin < 0.1 mg/dl Aspartate Amino Transf (AST/SGOT) 30 U/L Alanine Aminotransferase (ALT/SGPT) 31 U/L Alkaline Phosphatase 71 U/L Total Protein 7.3 gm/dl Albumin 3.3 gm/dl Lipase 174 U/L Urine Color DK YELLOW Urine Appearance CLEAR Urine pH 6.5 Urine Specific [place] 1.028 Urine Protein 1+ Urine Glucose (UA) TRACE Urine Ketones NEG Urine Occult Blood NEG Urine Nitrite NEG Urine Bilirubin NEG Urine Urobilinogen NEG Urine Leukocyte Esterase SMALL Urine WBC (Auto) 5-10 /hpf Urine RBC (Auto) 5-10 /hpf Urine Hyaline Casts (Auto) 5-10 /lpf Urine Epithelial Cells (Auto) >30 /lpf Urine Bacteria (Auto) NEG Urine Renal Epithelial Cells /lpf Bedside Glucose 162 mg/dl Test 01/11/17 11:40 01/11/17 12:00 01/11/17 12:25 Bedside Glucose 242 mg/dl Hemoglobin 8.1 g/dL Hematocrit 26.9 % Prothrombin Time 36.8 SECONDS Prothromb Time International Ratio 3.3 Sodium Level 136 mmol/L Potassium Level 3.6 mmol/L Chloride Level 101 mmol/L Carbon Dioxide Level 26 mmol/L Anion Gap 9.0 mmol/L Blood Urea Nitrogen 13 mg/dl Creatinine 0.62 mg/dl Est Creatinine Clear Calc Drug Dose 89.6 ml/min Estimated GFR () 111.2 Estimated GFR (Non- 96.0 BUN/Creatinine Ratio 20.3 Random Glucose 228 mg/dl Calcium Level 8.4 mg/dl Thyroid Stimulating Hormone (TSH) 1.730 uIu/ml Assessment and Plan This is a 61 year old female with PMH of CAD s/p CABG and stent placement, aortic valve replacement on Coumadin, Insulin-dependent DM2, HTN, Dyslipidemia presented due to low Hgb Anemia secondary to GI blood loss presented with Hgb ~ 7 s/p one unit PRBC and Hgb up to 8.1 will transfuse second unit (recent stent due to CAD, aortic valve replacement) appreciate GI input currently, plan is for EGD in AM we'll continue PPI BID hold Coumadin (INR > 3 today) CAD s/p CABG and stent currently holding aspirin continue statin, MITCHELL-I, b-kal Aortic Valve Replacement takes Coumadin - currently on hold INR down from > 5 to ~ 3 recheck INR in AM HTN stable continue lisinopril, metoprolol, verapamil Insulin Dependent DM2 hold oral agents last Ha1c = 7.7% insulin sliding scale monitor sugars while NPO after midnight DVT ppx currently INR > 3 holding Coumadin use SCDs in place due to anemia FULL CODE
[2017-01-11] MEDS: ATORVASTATIN 40 MG TAB PO SCH (21:20)
[2017-01-12] VITALS (9 sets, daily range): BP systolic 108–138; BP diastolic 62–82; PULSE 18–95; TEMP 36.6–36.9; O2SAT 95–97
[2017-01-12 07:31] LABS: HEMATOCRIT 29.9 % (37-47); MEAN CELL VOLUME 81.3 fL (80-100); MEAN CORPUSCULAR HEMOGLOBIN 24.7 pg (25-34); MEAN CORPUSCULAR HGB CONC 30.4 g/dl (32-36); MEAN PLATELET VOLUME 10.2 fL (7.4-10.4); PLATELET COUNT 197 K/uL (130-400); RED BLOOD COUNT 3.68 M/uL (4.2-5.4); WHITE BLOOD COUNT 3.36 K/uL (4.8-10.8)
[2017-01-12 07:43] LABS: INR 2.3 (0.9-1.1); PROTHROMBIN TIME (PATIENT) 25.4 SECONDS (9.0-12.0)
[2017-01-12 08:00] LABS: BUN/CREATININE RATIO 16.9 (10-20); CALCIUM 8.5 mg/dl (8.5-10.1); CREATININE 0.51 mg/dl (0.60-1.20); POTASSIUM 3.4 mmol/L (3.5-5.1)
[2017-01-12] MEDS: LISINOPRIL 5 MG TAB PO SCH (08:46)
[2017-01-12] MEDS: METOPROLOL TARTRATE 25 MG TAB PO SCH ×2 (08:46→21:51)
[2017-01-12] MEDS: INSULIN ASPART 100 UNITS/ML 3 ML PEN SC SCH ×4 (08:47→21:51)
[2017-01-12] MEDS: PANTOprazole INJ 40 MG in SYRINGE 0 ML IV SCH (08:57)
[2017-01-12] MEDS ORDERED: POTASSIUM CHLR 10 MEQ / WTR 10 MEQ in PREMIXED WATER 100 ML IV ONE (09:15)
[2017-01-12] MEDS ORDERED: ASPIRIN 81 MG CHEW PO STA (12:00)
[2017-01-12] MEDS ORDERED: MIDAZOLAM HCL 1 MG/ML 2ML VIAL ONE (12:43)
[2017-01-12] MEDS ORDERED: LIDOCAINE HCL 2% 2 ML VIAL (20MG/ML) ONE ×2 (12:43→13:05)
[2017-01-12] MEDS ORDERED: PROPOFOL IV EMULSION 10 MG/ML 20 ML VIAL IV ONE (12:43)
--- NOTE | 2017-01-12 12:47 | GI REPORT ---
Procedure Date: 01/12/2017 12:26 PM Procedure: Upper GI endoscopy Indications: Melena Medicines: Propofol per Anesthesia Complications: No immediate complications. Estimated blood loss: None. Estimated Blood Loss: Estimated blood loss: none. Procedure: Pre-Anesthesia Assessment: - Prior to the procedure, a History and Physical was performed, and patient medications, allergies and sensitivities were reviewed. The patient's tolerance of previous anesthesia was reviewed. - The risks and benefits of the procedure and the sedation options and risks were discussed with the patient. All questions were answered and informed consent was obtained. - Patient identification and proposed procedure were verified prior to the procedure by the physician and the nurse. The procedure was verified in the pre-procedure area in the procedure room. - Mental Status Examination: alert and oriented. Airway Examination: normal oropharyngeal airway and neck mobility. Respiratory Examination: clear to auscultation. CV Examination: normal. Abdominal Examination: bowel sounds present, abdomen soft and non-tender, no masses or organomegaly noted. - ASA Grade Assessment: III - A patient with severe systemic disease. After obtaining informed consent, the endoscope was passed under direct vision. Throughout the procedure, the patient's blood pressure, pulse, and oxygen saturations were monitored continuously. The scope was introduced through the mouth, and advanced to the second part of duodenum. The upper GI endoscopy was accomplished without difficulty. The patient tolerated the procedure well. Findings: The esophagus was normal. The entire examined stomach was normal. The examined duodenum was normal. Impression: - No fresh or altered blood. No ulcers. - Normal esophagus. - Normal stomach. There is a hemostatic clip at prior site of gastric polyp removal from July. - Normal examined duodenum. Recommendation: - Advance diet as tolerated. - [facility] for [facility] care. Tess Bates D.O. Tess Bates DO 01/12/2017 12:46:28 PM This report has been signed electronically. Note Initiated On: 01/12/2017 12:26 PM I attest to the content of the Intraoperative Record and orders documented therein, exceptions below
--- NOTE | 2017-01-12 13:37 | Anesthesiology Progress Note ---
Anesthesia Post Op Note Date & Time Jan 12, 2017 at 13:36 Vital Signs Vital Signs Past 12 Hours Date Time Temp Pulse Resp B/P Pulse Ox O2 Delivery O2 Flow Rate FiO2 01/12/17 12:10 36.9 77 18 141/63 99 Room Air 01/12/17 12:00 Room Air 01/12/17 11:58 36.9 69 20 115/62 95 Room Air 01/12/17 08:00 Room Air 01/12/17 07:38 36.6 72 18 138/82 96 Room Air 01/12/17 07:17 36.6 72 18 138/82 96 Room Air 72 01/12/17 04:05 36.7 69 18 130/73 95 Room Air 01/12/17 04:00 Room Air Notes Mental Status: alert / awake / arousable, participated in evaluation Pt Amnestic to Procedure: Yes Nausea / Vomiting: adequately controlled Pain: adequately controlled Airway Patency, RR, SpO2: stable & adequate BP & HR: stable & adequate Hydration State: stable & adequate Anesthetic Complications: no major complications apparent The patient did well. Her BSG in recovery was 220. She will be treated as per her sliding scale when she goes back to the floor.
[2017-01-12] MEDS: VENLAFAXINE HCL XR 150 MG CAPXR PO SCH (14:30)
[2017-01-12] MEDS: POTASSIUM CHLORIDE 10 MEQ TABCR PO SCH ×2 (14:30→21:51)
[2017-01-12] MEDS: CHOLECALCIFEROL 1000 INTER.UNIT TAB PO SCH (14:31)
[2017-01-12] MEDS: FUROSEMIDE 40 MG TAB PO SCH ×2 (14:31→17:21)
[2017-01-12] MEDS: TRAMADOL HCL 50 MG TAB PO SCH (14:35)
--- NOTE | 2017-01-12 15:20 | Progress Note ---
Subjective Date of Service: Jan 12, 2017. Subjective Pt evaluation today including: conversation w/ patient, physical exam, lab review, review of studies, review of inpatient medication list Saw/examined the patient in room 277 She had her EGD done with no significant findings this afternoon Doing well, no symptoms at this time Problem List Social History Problems: (1) Mechanical heart valve present Status: Acute Review of Systems Constitutional: No chills, No fever, No weakness Respiratory: No shortness of breath Cardiac: No chest pain Abdomen: No GI bleeding, No constipation, No diarrhea, No nausea, No pain, No vomiting Heme: No abnormal bleeding/bruising Medications Current Inpatient Medications Medications (Trade) Dose Ordered Sig/[place] Route Start Time Stop Time Status Last Admin Dose Admin Acetaminophen (Tylenol Tab) 650 mg Q4H PRN PO 01/10/17 21:00 02/09/17 20:59 01/11/17 21:22 650 MG Ondansetron HCl (Zofran Inj) 4 mg Q6H PRN IV 01/10/17 21:00 02/09/17 20:59 Nitroglycerin (Nitrostat Tab) 0.4 mg UD PRN SL 01/10/17 21:00 02/09/17 20:59 Albuterol (Ventolin Hfa Inhaler) 2 puffs QID PRN INH 01/10/17 21:00 02/09/17 20:59 Atorvastatin Calcium (Lipitor Tab) 80 mg QPM PO 01/10/17 21:00 02/09/17 20:59 01/11/17 21:20 80 MG Buspirone HCl (Buspar Tab) 5 mg BID PO 01/10/17 21:00 02/09/17 20:59 01/12/17 14:31 5 MG Fluticasone Propionate (Flovent Hfa 110MCG Inhaler) 2 puffs BID PRN INH 01/10/17 21:00 02/09/17 20:59 Fluticasone Propionate (Flonase Nasal [place]) 2 sprays DAILY PRN BENITO 01/10/17 21:00 02/09/17 20:59 Folic Acid (Folvite Tab) 2 mg DAILY PO 01/11/17 09:00 02/10/17 08:59 01/12/17 14:31 2 MG Furosemide (Lasix Tab) 40 mg BID17 PO 01/10/17 21:00 02/09/17 20:59 01/12/17 14:31 40 MG Albuterol/ Ipratropium (Combivent Respimat Inh) 2 puffs BID PRN INH 01/10/17 21:00 02/09/17 20:59 Lisinopril (Zestril Tab) 5 mg QAM PO 01/11/17 09:00 02/10/17 08:59 01/12/17 08:46 5 MG Metoprolol Tartrate (Lopressor Tab) 25 mg BID PO 01/10/17 21:00 02/09/17 20:59 01/12/17 08:46 25 MG Potassium Chloride (Klor-Con M10) 20 meq BID PO 01/10/17 21:00 02/09/17 20:59 01/12/17 14:30 20 MEQ Tramadol HCl (Ultram Tab) 50 mg QAM PO 01/11/17 09:00 02/10/17 08:59 01/12/17 14:35 50 MG Venlafaxine HCl (effeXOR EXTENDED REL CAP) 150 mg QAM PO 01/11/17 09:00 02/10/17 08:59 01/12/17 14:30 150 MG Cholecalciferol (Vitamin D Tab) 2,000 inter.unit DAILY PO 01/11/17 09:00 02/10/17 08:59 01/12/17 14:31 2,000 INTER.UNIT Miscellaneous Information (Order Awaiting Action) 1 ea QS N/A 01/11/17 00:00 02/10/17 00:00 Pantoprazole Sodium (Protonix Tab) 40 mg DAILY PO 01/11/17 09:00 02/10/17 08:59 Future Hold Insulin Aspart (novoLOG ASPART) SLIDING SCALE If C... ACHS SC 01/11/17 06:30 02/10/17 06:59 01/12/17 14:41 2 UNITS Glucose (Glucose 40% Gel) 15-30 GRAMS 15 GRAMS... UD PRN PO 01/10/17 21:30 02/09/17 21:29 Glucose (Glucose Chew Tab) 4-8 Tablets 4 Tabl... UD PRN PO 01/10/17 21:30 02/09/17 21:29 Dextrose (Dextrose 50% 50ML Syringe) 25-50ML OF 50% DW IV FOR... UD PRN IV 01/10/17 21:30 02/09/17 21:29 Glucagon 1 mg 1 mg UD PRN SQ 01/10/17 21:30 02/09/17 21:29 Pantoprazole Sodium/Syringe (Protonix Inj/ Syringe) 10 ml @ 40 mls/min DAILY IV 01/11/17 09:00 02/10/17 08:59 01/12/17 08:57 40 MLS/MIN Objective Vital Signs Date Time Temp Pulse Resp B/P Pulse Ox O2 Delivery O2 Flow Rate FiO2 01/12/17 15:05 36.7 79 18 137/82 97 Room Air 01/12/17 13:25 69 18 126/63 96 Room Air 01/12/17 13:15 70 18 136/75 95 Room Air 01/12/17 13:00 68 18 108/51 95 Room Air 01/12/17 12:50 70 18 110/51 95 Room Air 01/12/17 12:10 36.9 77 18 141/63 99 Room Air 01/12/17 12:00 Room Air 01/12/17 11:58 36.9 69 20 115/62 95 Room Air 01/12/17 08:00 Room Air 01/12/17 07:38 36.6 72 18 138/82 96 Room Air 01/12/17 07:17 36.6 72 18 138/82 96 Room Air 72 01/12/17 04:05 36.7 69 18 130/73 95 Room Air 01/12/17 04:00 Room Air 01/12/17 00:10 36.6 71 18 123/78 96 01/12/17 00:00 Room Air 01/11/17 20:00 Room Air 01/11/17 18:30 36.7 72 18 135/63 98 01/11/17 17:20 36.6 73 18 123/61 97 01/11/17 16:50 36.7 78 20 127/79 97 01/11/17 16:20 36.7 77 20 117/60 95 01/11/17 16:05 36.6 78 18 112/66 94 01/11/17 16:00 Room Air 01/11/17 15:47 36.7 75 20 113/69 98 0.0 Physical Exam General Appearance: no apparent distress Respiratory/Chest: lungs clear, normal breath sounds, no respiratory distress, no accessory muscle use Cardiovascular: regular rate, rhythm, no edema, no murmur Abdomen: normal bowel sounds, non tender, soft Extremities: normal inspection, no pedal edema Neurologic/Psychiatric: no motor/sensory deficits, alert, normal mood/affect Laboratory Results Last 24 Hours Test 01/11/17 16:07 01/11/17 20:16 01/12/17 07:09 01/12/17 07:41 Bedside Glucose 285 mg/dl 310 mg/dl 174 mg/dl White Blood Count 3.36 K/uL Red Blood Count 3.68 M/uL Hemoglobin 9.1 g/dL Hematocrit 29.9 % Mean Corpuscular Volume 81.3 fL Mean Corpuscular Hemoglobin 24.7 pg Mean Corpuscular Hemoglobin Concent 30.4 g/dl RDW Standard Deviation 50.6 fL RDW Coefficient of Variation 16.9 % Platelet Count 197 K/uL Mean Platelet Volume 10.2 fL Prothrombin Time 25.4 SECONDS Prothromb Time International Ratio 2.3 Sodium Level 141 mmol/L Potassium Level 3.4 mmol/L Chloride Level 106 mmol/L Carbon Dioxide Level 27 mmol/L Anion Gap 8.0 mmol/L Blood Urea Nitrogen 9 mg/dl Creatinine 0.51 mg/dl Est Creatinine Clear Calc Drug Dose 108.9 ml/min Estimated GFR () 118.6 Estimated GFR (Non- 102.3 BUN/Creatinine Ratio 16.9 Random Glucose 166 mg/dl Calcium Level 8.5 mg/dl Test 01/12/17 11:06 01/12/17 11:49 01/12/17 14:40 Lab Scanned Report Blood Transfusion Bedside Glucose 216 mg/dl 217 mg/dl Assessment and Plan This is a 61 year old female with PMH of CAD s/p CABG and stent placement, aortic valve replacement on Coumadin, Insulin-dependent DM2, HTN, Dyslipidemia presented due to low Hgb Anemia secondary to GI blood loss 01/12 doing well today; Hgb up to 9.1 EGD done and negative plan is to discharge patient home; outpatient f/u with PCP and lab work next week 01/11 presented with Hgb ~ 7 s/p one unit PRBC and Hgb up to 8.1 will transfuse second unit (recent stent due to CAD, aortic valve replacement) appreciate GI input currently, plan is for EGD in AM we'll continue PPI BID hold Coumadin (INR > 3 today) CAD s/p CABG and stent currently holding aspirin continue statin, MITCHELL-I, b-kal Aortic Valve Replacement takes Coumadin - currently on hold INR down from > 5 to ~ 3 recheck INR in AM HTN stable continue lisinopril, metoprolol, verapamil Insulin Dependent DM2 hold oral agents last Ha1c = 7.7% insulin sliding scale monitor sugars while NPO after midnight DVT ppx currently INR > 3 holding Coumadin use SCDs in place due to anemia FULL CODE
--- NOTE | 2017-01-12 15:24 | Discharge Instructions ---
Discharge Instructions Date of Service Jan 12, 2017. Admission Reason for Admission: Anemia Discharge Discharge Diagnosis / Problem: Iron Deficiency Anemia s/p 2 units PRBCs Discharge Goals Goal(s): Decrease discomfort, Improve function Activity Recommendations Activity Limitations: resume your previous activity . Instructions / Follow-Up Instructions / Follow-Up Please follow-up with Dr. Melo on January 18 @ 2:50PM * You received two units of packed red blood cells while in the hospital * You will need blood work rechecked as outpatient Current Hospital Diet Patient's current hospital diet: Clear Liquid Diet Discharge Diet Recommended Diet: Diabetes Type 2 Diet Pending Studies Studies pending at discharge: no Medical Emergencies . Who to Call and When: Medical Emergencies: If at any time you feel your situation is an emergency, please call 911 immediately. . Non-Emergent Contact Non-Emergency issues call your: Primary Care Provider . . "Provider Documentation" section prepared by Audrey Verdin. VTE Core Measure Inpt VTE Proph given/why not?: Warfarin (Coumadin)
--- NOTE | 2017-01-12 15:27 | Discharge Summary ---
Discharge Summary Date of Service Jan 12, 2017. Discharge Summary Admission Date: Jan 10, 2017 at 20:54 Discharge Date: Jan 13, 2017 Discharge Disposition: Home Principal Diagnosis: Iron Deficiency Anemia s/p two units PRBCs Medication Reconciliation Continued Medications: Acetaminophen/Diphenhydramine (Tylenol Pm) 500 Mg/25 Mg Tab 1 TAB PO HS, TAB Albuterol Sulfate (Proventil Hfa) 108 Mcg/Act Aer 2 PUFFS PO QID PRN for SOB/Wheezing Aspirin (Aspirin Ec) 81 Mg Tab 81 MG PO DAILY Atorvastatin (Lipitor) 80 Mg Tab 80 MG PO QPM, TAB Buspirone HCl (Buspirone HCl) 5 Mg Tab 5 MG PO BID Cholecalciferol (Vitamin D3) 2,000 Unit Cap 2000 UNIT PO DAILY, 3 Refills Fluticasone Propionate (Flovent Hfa) 120 Puffs/37371 Mcg Aero 2 PUFFS INH BID PRN for SOB/Wheezing, 3 Refills Fluticasone Propionate (Nasal) (Flonase Allergy Relief) 50 Mcg/Act Spr 2 SPRAYS BENITO DAILY PRN for Nasal Congestion Folic Acid (Folic Acid) 1 Mg Tab 2 MG PO DAILY Furosemide (Lasix) 40 Mg Tab 40 MG PO BID Insulin Glargine (Lantus) 100 Unit/Ml Inj 40 UNITS SC QPM, VIAL Insulin Lispro (Human) (Humalog) 100 Unit/Ml Inj 15 UNITS SQ TIDM Ipratropium-Albuterol (Combivent Respimat) 1 Aer Aer 2 PUFFS INH BID PRN for SOB/Wheezing, INH Iron-Vitamin C (Vitron-C) 1 Tab Tab 1 TAB PO QPM Lisinopril (Zestril) 5 Mg Tab 5 MG PO QAM Metformin Hcl (Glucophage) 1,000 Mg Tab 1000 MG PO BID Metoprolol Tartrate (Lopressor) (Lopressor) 25 Mg Tab 25 MG PO BID, 0 Refills Nitroglycerin (Nitrostat) 0.4 Mg Tab 0.4 MG UT UD PRN for Chest Pain, BTL Omeprazole (Prilosec) 20 Mg Capcr 20 MG PO DAILY, CAP Ondansetron Hcl (Zofran) 4 Mg Tab 4 MG PO Q6 PRN for Nausea Potassium Chloride (Micro-K Ext Rel) 10 Meq Capcr 20 MEQ PO AMPM Tramadol (Ultram) 50 Mg Tab 50 MG PO QAM, TAB Venlafaxine Hcl (Venlafaxine Hcl Er) 150 Mg Tab 150 MG PO QAM, 2 Refills Warfarin Sod (Coumadin) 6 Mg Tab 6 MG PO 5XWK for EXCEPT TUESDAY AND TUESDAY Warfarin Sodium (Coumadin) 4 Mg Tab 4 MG PO 2XWK TUESDAY AND TUESDAY ONLY Admission Information HPI (per Admitting provider): This is a 61 y/o female with PMHx of CAD s/p CABG and stent placement, AVR replacement on Coumadin, Insulin-dependent DM 2, HTN, Dyslipidemia and other problems as outlined below who presents to the ED de to abnormal outpatient lab results. Pt received a call from PCP (Dr. Melo) office instructing her to go to the emergency room due to a low hemoglobin of 6.9. Pt does admit she has experienced exertional SOB and occ lightheadedness over the past few days. She has also had intermitted LLQ abd pain. Pt has a history of GI bleed in July 2016 at which time she was transfused 4 units pRBCs. Per patient she had an EGD and colonoscopy however they were unable to find the source of the bleed. She required another transfusion of 4 units in October. Since that time, her HgB has been around 9.5. Pts stool is always dark as she takes an iron pill however she denies hematochezia or melena. She is on Coumadin for an AVR. Pt denies fever/chills, diaphoresis, chest pain, syncope, wheezing, N/V, bowel or bladder issues, LE edema or calf pain. In the ED, vitals are stable. HgB 7.2. INR 5.4. Chest/abd xray is negative. Pt is stable and will be admitted for further evaluation and treatment. Physical Exam (per Admitting): General Appearance: WD/WN, no apparent distress, + pertinent finding (Pt is sitting up comfortably in bed ) Head: normocephalic, atraumatic Eyes: normal inspection ENT: hearing grossly normal Neck: supple Respiratory/Chest: chest non-tender, lungs clear, normal breath sounds, no respiratory distress Cardiovascular: regular rate, rhythm, no edema, + systolic murmur (click) Abdomen/GI: soft, + tenderness (mild tenderness to left upper and lower quadrants ), + pertinent finding (diminished bowel sounds) Back: normal inspection Extremities/Musculoskelatal: normal inspection, no calf tenderness, no pedal edema Neurologic/Psych: alert, normal mood/affect, oriented x 3 Skin: normal color Hospital Course This is a 61 year old female with PMH of CAD s/p CABG and stent placement, aortic valve replacement on Coumadin, Insulin-dependent DM2, HTN, Dyslipidemia presented due to low Hgb Anemia secondary to GI blood loss 01/12 doing well today; Hgb up to 9.1 EGD done and negative plan is to discharge patient home; outpatient f/u with PCP and lab work next week 01/11 presented with Hgb ~ 7 s/p one unit PRBC and Hgb up to 8.1 will transfuse second unit (recent stent due to CAD, aortic valve replacement) appreciate GI input currently, plan is for EGD in AM we'll continue PPI BID hold Coumadin (INR > 3 today) CAD s/p CABG and stent currently holding aspirin continue statin, MITCHELL-I, b-kal Aortic Valve Replacement takes Coumadin - currently on hold INR down from > 5 to ~ 3 recheck INR in AM HTN stable continue lisinopril, metoprolol, verapamil Insulin Dependent DM2 hold oral agents last Ha1c = 7.7% insulin sliding scale monitor sugars while NPO after midnight DVT ppx currently INR > 3 holding Coumadin use SCDs in place due to anemia FULL CODE Total time spent on discharge = 38 minutes This includes examination of the patient, discharge planning, medication reconciliation, and communication with other providers. Discharge Instructions Please follow-up with Dr. Melo on January 18 @ 2:50PM * You received two units of packed red blood cells while in the hospital * You will need blood work rechecked as outpatient
[2017-01-12] MEDS: ATORVASTATIN 40 MG TAB PO SCH (21:51)
[2017-02-25] MEDS ORDERED: LVNIS80 SQ (13:55)
[2017-02-25] MEDS ORDERED: PANT1TAB48 PO (14:08)
[2017-04-01] MEDS ORDERED: PANT40TA PO (11:37)
[2017-06-07] MEDS ORDERED: LUPIN PO (11:11)
== END 2017-01-12 22:15 | disposition home or self-care (01) | DRG 812 ==
LOC: ENRESERVDT → ENRESERVTM → C.EDB 18:01 → C.MED 20:54 → CANBEDREQ 01-12 16:18
PROVIDERS: ADMIT Hospitalist; ATTEND Family Medicine
PROC: 0DJ08ZZ Inspection of Upper Intestinal Tract, Via Natural or Artificial Opening Endoscopic (ICD-10-PCS; principal; 2017-01-11)
DX: D50.0 Iron deficiency anemia secondary to blood loss (chronic) (principal); J45.909 Unspecified asthma, uncomplicated; F32.9 Major depressive disorder, single episode, unspecified; E78.5 Hyperlipidemia, unspecified; K21.9 Gastro-esophageal reflux disease without esophagitis; F41.9 Anxiety disorder, unspecified; I25.10 Atherosclerotic heart disease of native coronary artery without angina pectoris; R79.1 Abnormal coagulation profile; I10 Essential (primary) hypertension; E11.9 Type 2 diabetes mellitus without complications; Z79.01 Long term (current) use of anticoagulants; Z95.1 Presence of aortocoronary bypass graft; Z95.2 Presence of prosthetic heart valve; Z95.5 Presence of coronary angioplasty implant and graft; Z79.4 Long term (current) use of insulin; Z79.82 Long term (current) use of aspirin; Z79.899 Other long term (current) drug therapy; Z79.84 Long term (current) use of oral hypoglycemic drugs; Z79.891 Long term (current) use of opiate analgesic

== ENCOUNTER 2017-02-23 14:25 | Inpatient (IN) | payer OTHER, BC ==
[2017-02-23] VITALS (13 sets, daily range): BP systolic 102–139; BP diastolic 61–84; PULSE 70–84; TEMP 36–36.9; O2SAT 97–100; Ht 152.4 cm; Wt 80.0 kg
[~2017-02-23] VITALS: Ht 152.4 cm; Wt 80.0 kg
[~2017-02-23 14:25] MED LIST changes: -ATV/1 PO; +BSP/5 PO; +CMD6 PO; +DIPH-437 PO; +INSDGI SC; +INSU100I SQ; -INSU100I17 SC; -INSU1INJ7 SC; +TRAM-10 PO
[2017-02-23] MEDS ORDERED: FAMOTIDINE 20MG/102 ML D5W IV STA (15:01)
--- NOTE | 2017-02-23 15:03 | EMERGENCY ROOM VISIT NOTE ---
History Report prepared by Louis: Nino Quinn Under the Supervision of: Dr. Julio César Monet D.O. First contact with patient: 14:42 Chief Complaint: REFERRED BY DOCTOR Stated Complaint: LOW BLOOD LEVEL History of Present Illness The patient is a 61 year old female who presents to the Emergency Room after a referral from her primary care physician for a low blood level. The patient states that she is here today because she is "losing blood again," and that she has been having low blood counts for an unknown reason. She most recently had blood work done two days ago that showed low blood levels. The patient also notes having black stools recently, and being usually short of breath upon exertion. She denies any chest pain with her shortness of breath and has not noticed any lower extremity swelling. The patient has received IV iron infusions twice this month and states that she has had multiple scopes performed above and below in the past. She also has had hernia surgeries, three open heart surgeries, and a cholecystectomy. She also has a history of valve replacement and diabetes. 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 A total of 10 systems reviewed and were otherwise negative. Past Medical & Surgical Medical Problems: (1) Anemia (2) ASCVD (arteriosclerotic cardiovascular disease) (3) Asthma (4) Cirrhosis (5) Depression (6) DM type 2 (diabetes mellitus, type 2) (7) Dyslipidemia (8) GERD (gastroesophageal reflux disease) (9) GI bleed (10) VIDHI (iron deficiency anemia) Surgical Problems: (1) H/O aortic valve replacement (2) H/O pericardiectomy (3) H/O ventral hernia repair (4) History of incisional hernia repair (5) Hx of cholecystectomy (6) Hx of tonsillectomy (7) S/P angioplasty with stent Family History Patient reports no known family medical history. Social History Smoking Status: Never Smoker Alcohol Use: none Drug Use: none Marital Status: Occupation Status: retired Current/Historical Medications Scheduled Aspirin (Aspirin Ec), 81 MG PO DAILY Atorvastatin (Lipitor), 80 MG PO QPM Buspirone HCl (Buspirone HCl), 5 MG PO BID Cholecalciferol (Vitamin D3), 2,000 UNIT PO DAILY Folic Acid (Folic Acid), 2 MG PO DAILY Furosemide (Lasix), 40 MG PO BID Insulin Glargine (Lantus), 40 UNITS SC QAM Insulin Lispro (Human) (Humalog), 20 UNITS SQ TIDM Iron-Vitamin C (Vitron-C), 1 TAB PO QPM Lisinopril (Zestril), 5 MG PO QAM Metformin Hcl (Glucophage), 1,000 MG PO BID Metoprolol Tartrate (Lopressor) (Lopressor), 25 MG PO BID Omeprazole (Prilosec), 20 MG PO DAILY Potassium Chloride (Micro-K Ext Rel), 20 MEQ PO QAM Potassium Chloride (K-Tabs), 10 MEQ PO QPM Tramadol (Ultram), 50 MG PO Q12 Venlafaxine Hcl (Venlafaxine Hcl Er), 150 MG PO QAM Warfarin Sod (Coumadin), 6 MG PO 5XWK Warfarin Sodium (Coumadin), 4 MG PO 2XWK Scheduled PRN Albuterol Sulfate (Proventil Hfa), 2 PUFFS PO QID PRN for SOB/Wheezing Fluticasone Propionate (Flovent Hfa), 2 PUFFS INH BID PRN for SOB/Wheezing Fluticasone Propionate (Nasal) (Flonase Allergy Relief), 2 SPRAYS BENITO DAILY PRN for Nasal Congestion Ipratropium-Albuterol (Combivent Respimat), 2 PUFFS INH BID PRN for SOB/Wheezing Nitroglycerin (Nitrostat), 0.4 MG UT UD PRN for Chest Pain Ondansetron Hcl (Zofran), 4 MG PO Q6 PRN for Nausea Allergies Coded Allergies: Erythromycin (Verified Allergy, Mild, 02/23/17) Tetracycline (Verified Allergy, Mild, 02/23/17) Ciprofloxacin (Verified Allergy, Unknown, `, 02/23/17) Hydrocodone (Verified Allergy, Unknown, `, 02/23/17) Sulfa Antibiotics (Verified Allergy, Unknown, Unknown rxn, 02/23/17) Physical Exam Vital Signs Date Time Temp Pulse Resp B/P Pulse Ox O2 Delivery O2 Flow Rate FiO2 02/23/17 15:07 76 02/23/17 14:31 77 20 102/54 100 Room Air Physical Exam GENERAL: Patient is awake, alert, and in no acute distress. Patient is resting comfortably and showing no signs of anxiety EYES: The conjunctivae are clear. The pupils are round and reactive. EARS, NOSE, MOUTH AND THROAT: The nose is without any evidence of any deformity. Mucous membranes are moist tongue is midline NECK: The neck is nontender and supple. RESPIRATORY: Diminished at both bases. No tachypnea or conversational dyspnea. There is no evidence of wheezing rhonchi or rales CARDIOVASCULAR: There is a systolic murmur with metallic click noted to auscultation. Regular rate and rhythm noted there no rubs or gallops normal S1 normal S2 GASTROINTESTINAL: The abdomen is soft. Bowel sounds are present in all quadrants. Abdomen is nontender MUSCULOSKELETAL/EXTREMITIES: There is no evidence of gross deformity full range of motion is noted in the hips and shoulders. There is trace pedal edema bilaterally. SKIN: There is no obvious evidence of any rash. There are no petechiae, pallor or cyanosis noted. NEUROLOGIC: Patient is awake alert and oriented x3 RECTAL: Stool was dark and strongly heme positive. Medical Decision & Procedures ER Provider Diagnostic Interpretation: Radiology results as stated below per my review and radiologist interpretation: CHEST ONE VIEW PORTABLE CLINICAL HISTORY: Abdominal pain. COMPARISON STUDY: Chest radiograph January 10, 2017. FINDINGS: There are median sternotomy wires, mediastinal surgical clips and a prosthetic aortic valve. Moderate cardiomegaly is noted. There is no pneumothorax. There is no evidence of pulmonary edema. Linear left lower lung opacity favors atelectasis or scarring. IMPRESSION: No acute cardiopulmonary findings. Stable cardiomegaly. No change in appearance of the chest. Electronically signed by: Minor Hinson M.D. 02/23/2017 3:21 PM Dictated Date/Time: 02/23/2017 3:20 PM Laboratory Results 02/23/17 14:50 Red Blood Count 2.93, Mean Corpuscular Volume 86.7, Mean Corpuscular Hemoglobin 24.9, Mean Corpuscular Hemoglobin Concent 28.7, Mean Platelet Volume 9.3, Neutrophils (%) (Auto) 72.9, Lymphocytes (%) (Auto) 14.4, Monocytes (%) (Auto) 10.2, Eosinophils (%) (Auto) 2.0, Basophils (%) (Auto) 0.5, Neutrophils # (Auto ) 2.93, Lymphocytes # (Auto) 0.58, Monocytes # (Auto) 0.41, Eosinophils # (Auto ) 0.08, Basophils # (Auto) 0.02 02/23/17 14:50 Test 02/23/17 14:50 White Blood Count 4.02 K/uL (4.8-10.8) Red Blood Count 2.93 M/uL (4.2-5.4) Hemoglobin 7.3 g/dL (12.0-16.0) Hematocrit 25.4 % (37-47) Mean Corpuscular Volume 86.7 fL (80-100) Mean Corpuscular Hemoglobin 24.9 pg (25-34) Mean Corpuscular Hemoglobin Concent 28.7 g/dl (32-36) Platelet Count 186 K/uL (130-400) Mean Platelet Volume 9.3 fL (7.4-10.4) Neutrophils (%) (Auto) 72.9 % Lymphocytes (%) (Auto) 14.4 % Monocytes (%) (Auto) 10.2 % Eosinophils (%) (Auto) 2.0 % Basophils (%) (Auto) 0.5 % Neutrophils # (Auto) 2.93 K/uL (1.4-6.5) Lymphocytes # (Auto) 0.58 K/uL (1.2-3.4) Monocytes # (Auto) 0.41 K/uL (0.11-0.59) Eosinophils # (Auto) 0.08 K/uL (0-0.5) Basophils # (Auto) 0.02 K/uL (0-0.2) RDW Standard Deviation 63.6 fL (36.4-46.3) RDW Coefficient of Variation 19.9 % (11.5-14.5) Immature Granulocyte % (Auto) 0.0 % Immature Granulocyte # (Auto) 0.00 K/uL (0.00-0.02) Polychromasia 1+ Hypochromasia PRESENT Anisocytosis PRESENT Absolute Reticulocyte Count 0.15 10^6/uL (0.02-0.10) Percent Reticulocyte Count 5.1 % (0.5-2.0) Immature Reticulocyte Fraction 20.0 % (3.0-15.9) Reticulocyte Hemoglobin Content 19.4 PG (28.2-36.6) Prothrombin Time 41.9 SECONDS (9.0-12.0) Prothromb Time International Ratio 3.7 (0.9-1.1) Activated Partial Thromboplast Time 38.6 SECONDS (21.0-31.0) Partial Thromboplastin Ratio 1.5 Anion Gap 5.0 mmol/L (3-11) Est Creatinine Clear Calc Drug Dose 101.2 ml/min Estimated GFR () 116.4 Estimated GFR (Non- 100.4 BUN/Creatinine Ratio 22.0 (10-20) Calcium Level 8.5 mg/dl (8.5-10.1) Total Bilirubin 0.4 mg/dl (0.2-1) Direct Bilirubin 0.1 mg/dl (0-0.2) Aspartate Amino Transf (AST/SGOT) 26 U/L (15-37) Alanine Aminotransferase (ALT/SGPT) 26 U/L (12-78) Alkaline Phosphatase 61 U/L (45-117) Troponin I < 0.015 ng/ml (0-0.045) Total Protein 7.0 gm/dl (6.4-8.2) Albumin 3.2 gm/dl (3.4-5.0) Lipase 199 U/L (73-393) Laboratory results per my review. Medications Administered Medications (Trade) Dose Ordered Sig/Lee Ann Route Start Time Stop Time Status Last Admin Dose Admin Pantoprazole Sodium/Syringe (Protonix Inj/ Syringe) 10 ml @ 5 mls/min NOW ONCE IV 02/23/17 15:15 02/23/17 15:16 DC 02/23/17 15:21 5 MLS/MIN Famotidine (Pepcid 20mg/100 ml) 20 mg ONE STAT IV 02/23/17 15:01 02/23/17 15:02 DC 02/23/17 15:21 20 MG ECG Indication: SOB/dyspnea Rate (beats per minute): 78 Rhythm: normal sinus Findings: LBBB, ST depression (Lateral) Comparison ECG Date: 01/10/2017 Change: no significant change ED Course 1454: The patient was evaluated in room B3B. A complete history and physical examination were performed. 1501: Ordered Famotidine 20 mg IV. 1515: Ordered Pantoprazole 10 mL @ 5 mL/min IV. 1521: I discussed the case with Dr. Evi Dye [facility] Hospitalist at this time, he will evaluate the patient for further treatment. Medical Decision The patient's history was concerning for respiratory difficulties. Differential diagnosis: Etiologies such as infections, reactive airway disease, pneumonia, pneumothorax , COPD, CHF, cardiac ischemia, pulmonary embolism, musculoskeletal, gastrointestinal, as well as others were entertained. The patient is a 61-year-old female who presented to the emergency department for an evaluation of symptoms continue. The patient has a history of anemia. She states that she's had upper as well as lower endoscopy but no cause for her worsening anemia is of been found. 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 She takes Coumadin for valve replacement. The patient had laboratory studies done by her primary care physician Tuesday of this week. She was sent to the emergency department today because of worsening symptoms of shortness of breath. Her hemoglobin was found to be low. She did have heme positive dark stool on rectal exam. The patient was treated with Protonix and Pepcid in the emergency department. She was also typed and crossed for a blood transfusion. Blood transfusion consent was filled out by myself. Blood was ordered. The patient was reevaluated multiple times. I discussed patient's laboratory and radiographic studies with her. I also discussed her case with the on-call [facility] hospitalist. They've agreed to evaluate the patient in the emergency department for further management and disposition. Consults Time Called: 1518 Consulting Physician: Dr. Evi Lopez Returned Call: 1521 I discussed the case with Dr. Evi Lopez at this time, he will evaluate the patient for further treatment. Impression Primary Impression: Upper gastrointestinal bleed Additional Impressions: Symptomatic anemia Current use of ferry terminal agent anticoagulation Scribe Attestation The scribe's documentation has been prepared under my direction and personally reviewed by me in its entirety. I confirm that the note above accurately reflects all work, treatment, procedures, and medical decision making performed by me. Departure Information Dispostion Being Evaluated By Hospitalist Referrals Luis Melo D.O. (PCP) Patient Instructions My [facility] Problem Qualifiers
[2017-02-23] MEDS ORDERED: PANTOprazole INJ 40 MG in SYRINGE 0 ML IV ONE (15:15)
[2017-02-23] MEDS ORDERED: MCRK/10 PO (15:18)
[2017-02-23 15:19] LABS: HEMATOCRIT 25.4 % (37-47); MEAN CELL VOLUME 86.7 fL (80-100); MEAN CORPUSCULAR HEMOGLOBIN 24.9 pg (25-34); MEAN CORPUSCULAR HGB CONC 28.7 g/dl (32-36); MEAN PLATELET VOLUME 9.3 fL (7.4-10.4); PLATELET COUNT 186 K/uL (130-400); RED BLOOD COUNT 2.93 M/uL (4.2-5.4); WHITE BLOOD COUNT 4.02 K/uL (4.8-10.8)
--- NOTE | 2017-02-23 15:23 | DIAGNOSTIC IMAGING REPORT ---
CHEST ONE VIEW PORTABLE CLINICAL HISTORY: Abdominal pain. COMPARISON STUDY: Chest radiograph January 10, 2017. FINDINGS: There are median sternotomy wires, mediastinal surgical clips and a prosthetic aortic valve. Moderate cardiomegaly is noted. There is no pneumothorax. There is no evidence of pulmonary edema. Linear left lower lung opacity favors atelectasis or scarring. IMPRESSION: No acute cardiopulmonary findings. Stable cardiomegaly. No change in appearance of the chest. Electronically signed by: Minor Hinson M.D. 02/23/2017 3:21 PM Dictated Date/Time: 02/23/2017 3:20 PM
[2017-02-23 15:25] LABS: INR 3.7 (0.9-1.1); PARTIAL THROMBOPLASTIN RATIO 1.5; PROTHROMBIN TIME (PATIENT) 41.9 SECONDS (9.0-12.0)
[2017-02-23 15:28] LABS: ANISOCYTOSIS PRESENT; BASO % 0.5 %; BASO ABS # 0.02 K/uL (0-0.2); COMPLETE YES; HYPOCHROMIA PRESENT; LYMPH % 14.4 %; LYMPH ABS # 0.58 K/uL (1.2-3.4); MONO % 10.2 %; NEUT % 72.9 %; POLYCHROMASIA 1+; RETHE 19.4 PG (28.2-36.6)
[2017-02-23 15:31] LABS: AST/SGOT 26 U/L (15-37); BLOOD UREA NITROGEN 12 mg/dl (7-18); CALCIUM 8.5 mg/dl (8.5-10.1); CARBON DIOXIDE 28 mmol/L (21-32); CHLORIDE 110 mmol/L (98-107); CREATININE 0.54 mg/dl (0.60-1.20); GLUCOSE 57 mg/dl (70-99); POTASSIUM 3.3 mmol/L (3.5-5.1); SODIUM 143 mmol/L (136-145)
[2017-02-23 15:37] LABS: ALKALINE PHOSPHATASE 61 U/L (45-117); ALT/SGPT 26 U/L (12-78)
[2017-02-23] MEDS ORDERED: D5W AND NSS IV SCH (15:45)
[2017-02-23] MEDS ORDERED: WTR IV SCH (15:45)
[2017-02-23] MEDS ORDERED: POTASSIUM CHLR IV SCH (15:45)
[2017-02-23] MEDS ORDERED: D5W AND NSS 1,000 ML IV SCH (15:45)
[2017-02-23] MEDS ORDERED: ONDANSETRON INJ 2 MG/ML 2 ML VIAL IV PRN (16:15)
[2017-02-23] MEDS ORDERED: ACETAMINOPHEN 325 MG TAB PO PRN (16:15)
[2017-02-23] MEDS ORDERED: GLUCOSE 40% GEL 15 GM TUBE PO PRN (16:30)
[2017-02-23] MEDS ORDERED: DEXTROSE 50% 50 ML SYR IV PRN (16:30)
[2017-02-23] MEDS ORDERED: GLUCAGON FOR INJ 1 MG VIAL SQ PRN (16:30)
[2017-02-23] MEDS ORDERED: GLUCOSE 10 TABS/TUBE PO PRN (16:30)
[2017-02-23] MEDS ORDERED: IPRASOL4 INH (16:38)
[2017-02-23] MEDS ORDERED: ASPCH81X PO (16:38)
[2017-02-23] MEDS ORDERED: NITROGLYCERIN 0.4 MG SL PER TAB CHARGE UT PRN (16:45)
[2017-02-23] MEDS ORDERED: ALBUTEROL HFA 8 GM INHALER INH PRN (16:45)
[2017-02-23] MEDS ORDERED: FLUTICASONE PROPIONATE NA SPR 16 GM BTL NAE PRN (16:45)
[2017-02-23] MEDS ORDERED: IPRATROPIUM BROMIDE/ALBUTEROL respimat INH INH PRN (16:45)
[2017-02-23] MEDS ORDERED: ALBUT/IPRATROP 3MG/0.5MG NEB 3 ML VIAL INH PRN (16:45)
[2017-02-23] MEDS ORDERED: ONDANSETRON 4 MG TAB PO PRN (16:45)
[2017-02-23] MEDS ORDERED: FUROSEMIDE INJ 40 MG in SYRINGE 0 ML IV SCH (17:00)
--- NOTE | 2017-02-23 17:17 | History and Physical ---
History & Physical Date & Time of Service: February 23, 2017 at 16:42 Chief Complaint: Low Blood Level Primary Care Physician: Luis Melo D.O. History of Present Illness Source: patient, clinic records, hospital records This is a 61 year old female with PMH of CAD s/p CABG and stent placement, mechanical aortic valve replacement on Coumadin, IDDM type 2, HTN, dyslipidemia , hx of [place] cirrhosis, and other problems listed below who presents to the ED for abnormal outpatient labs. Patient was admitted to [facility] in 12/2016 for iron deficiency anemia requiring 2 units transfused and had EGD without any source of bleeding. Today patient was sent to ER by PCP for outpatient Hg of 7.7 drawn 2 days ago. Patient reports fatigue and increased WALLER. She reports possibly recent possible URI with night time cough and nasal congestion. She admits to black stool for past month. She has been receiving iron infusions and PO iron supplement. She had 2 episodes of diarrhea today [employer] after being constipated and straining for BM recently for which she took stool softeners. No rectal pain. No bright red blood per rectum. She reports chronic intermittent L sided abdominal pain but is note experiencing it currently. She denies fever, sweats, dizziness, headache, vision change, chest pain, palpitations, dyspnea at rest, acid reflux, nausea, vomiting, urinary changes, edema, weight gain. Last colonoscopy in 07/2016 showed hyperplastic polyp. Past Medical/Surgical History Medical Problems: (1) ASCVD (arteriosclerotic cardiovascular disease) Status: Chronic (2) Asthma Status: Chronic (3) Cirrhosis Status: Chronic (4) Depression Status: Chronic (5) DM type 2 (diabetes mellitus, type 2) Status: Chronic (6) Dyslipidemia Status: Chronic (7) GERD (gastroesophageal reflux disease) Status: Chronic (8) VIDHI (iron deficiency anemia) Status: Chronic Surgical Problems: (1) H/O aortic valve replacement Status: Chronic (2) H/O pericardiectomy Status: Chronic (3) H/O ventral hernia repair Status: Chronic (4) History of incisional hernia repair Status: Chronic (5) Hx of cholecystectomy Status: Chronic (6) Hx of tonsillectomy Status: Chronic (7) S/P angioplasty with stent Status: Chronic Family History FH: CAD (coronary artery disease) BROTHER SISTER Social History Smoking Status: Never Smoker Alcohol Use: none Drug Use: none Marital Status: Housing status: lives with significant other Occupational Status: retired Immunizations History of Influenza Vaccine: Yes History of Tetanus Vaccine?: Yes History of Pneumococcal: Yes History of Hepatitis B Vaccine: No Multi-Drug Resistant Organisms History of MDRO: No Allergies Coded Allergies: Erythromycin (Verified Allergy, Mild, 02/23/17) Tetracycline (Verified Allergy, Mild, 02/23/17) Ciprofloxacin (Verified Allergy, Unknown, `, 02/23/17) Hydrocodone (Verified Allergy, Unknown, `, 02/23/17) Sulfa Antibiotics (Verified Allergy, Unknown, Unknown rxn, 02/23/17) Home Medications Scheduled Aspirin (Aspirin Chewable), 81 MG PO DAILY Atorvastatin (Lipitor), 80 MG PO DAILY Cholecalciferol (Vitamin D3), 2,000 UNIT PO DAILY Folic Acid (Folic Acid), 2 MG PO DAILY Furosemide (Lasix), 40 MG PO BID Insulin Glargine (Lantus), 40 UNITS SC QAM Insulin Lispro (Human) (Humalog), 20 UNITS SQ TIDM Iron-Vitamin C (Vitron-C), 1 TAB PO BID Lisinopril (Zestril), 5 MG PO QAM Metformin Hcl (Glucophage), 1,000 MG PO BID Metoprolol Tartrate (Lopressor) (Lopressor), 25 MG PO BID Omeprazole (Prilosec), 20 MG PO DAILY Potassium Chloride (Micro-K Ext Rel), 20 MEQ PO QAM Potassium Chloride (K-Tabs), 10 MEQ PO QPM Tramadol (Ultram), 50 MG PO Q12 Venlafaxine Hcl (Venlafaxine Hcl Er), 150 MG PO QAM Warfarin Sod (Coumadin), 6 MG PO 5XWK Warfarin Sodium (Coumadin), 4 MG PO 2XWK Scheduled PRN Albuterol Sulfate (Proventil Hfa), 2 PUFFS PO Q4H PRN for SOB/Wheezing Buspirone HCl (Buspirone HCl), 5 MG PO BID PRN for Anxiety Fluticasone Propionate (Nasal) (Flonase Allergy Relief), 2 SPRAYS BENITO DAILY PRN for Nasal Congestion Ipratropium-Albuterol (Combivent Respimat), 2 PUFFS INH BID PRN for SOB/Wheezing Ipratropium-Albuterol (Duoneb), 1 TREATMENT INH QID PRN for SOB/Wheezing Nitroglycerin (Nitrostat), 0.4 MG UT UD PRN for Chest Pain Ondansetron Hcl (Zofran), 4 MG PO Q6 PRN for Nausea Review of Systems Admits to healing ulcerations on her chest and neck. Ten systems reviewed and negative except as noted in HPI. Physical Exam Vital Signs Date Time Temp Pulse Resp B/P Pulse Ox O2 Delivery O2 Flow Rate FiO2 02/23/17 15:07 76 02/23/17 14:31 77 20 102/54 100 Room Air General Appearance: no apparent distress, + obese, + pertinent finding ( pleasant alert 61 year old female) Head: normocephalic, atraumatic Eyes: normal inspection, PERRL, EOMI ENT: hearing grossly normal, pharynx normal Neck: no JVD, trachea midline Respiratory/Chest: lungs clear, normal breath sounds, no respiratory distress, no accessory muscle use Cardiovascular: regular rate, rhythm, + systolic murmur, + pertinent finding ( mechanical valve sound) Abdomen/GI: normal bowel sounds, non tender, soft, + pertinent finding (obese) Extremities/Musculoskelatal: normal inspection, no calf tenderness, no pedal edema Neurologic/Psych: alert, normal mood/affect, oriented x 3, + pertinent finding (no focal deficit on gross examination) Skin: warm/dry, + pallor, + pertinent finding (few healing superficial ulcerations on her left chest, left neck, and chin) Diagnostics Laboratory Results Results Past 24 Hours Test 02/23/17 14:50 Range/Units White Blood Count 4.02 4.8-10.8 K/uL Red Blood Count 2.93 4.2-5.4 M/uL Hemoglobin 7.3 12.0-16.0 g/dL Hematocrit 25.4 37-47 % Mean Corpuscular Volume 86.7 80-100 fL Mean Corpuscular Hemoglobin 24.9 25-34 pg Mean Corpuscular Hemoglobin Concent 28.7 32-36 g/dl Platelet Count 186 130-400 K/uL Mean Platelet Volume 9.3 7.4-10.4 fL Neutrophils (%) (Auto) 72.9 % Lymphocytes (%) (Auto) 14.4 % Monocytes (%) (Auto) 10.2 % Eosinophils (%) (Auto) 2.0 % Basophils (%) (Auto) 0.5 % Neutrophils # (Auto) 2.93 1.4-6.5 K/uL Lymphocytes # (Auto) 0.58 1.2-3.4 K/uL Monocytes # (Auto) 0.41 0.11-0.59 K/uL Eosinophils # (Auto) 0.08 0-0.5 K/uL Basophils # (Auto) 0.02 0-0.2 K/uL RDW Standard Deviation 63.6 36.4-46.3 fL RDW Coefficient of Variation 19.9 11.5-14.5 % Immature Granulocyte % (Auto) 0.0 % Immature Granulocyte # (Auto) 0.00 0.00-0.02 K/uL Polychromasia 1+ Hypochromasia PRESENT Anisocytosis PRESENT Absolute Reticulocyte Count 0.15 0.02-0.10 10^6/uL Percent Reticulocyte Count 5.1 0.5-2.0 % Immature Reticulocyte Fraction 20.0 3.0-15.9 % Reticulocyte Hemoglobin Content 19.4 28.2-36.6 PG Prothrombin Time 41.9 9.0-12.0 SECONDS Prothromb Time International Ratio 3.7 0.9-1.1 Activated Partial Thromboplast Time 38.6 21.0-31.0 SECONDS Partial Thromboplastin Ratio 1.5 Sodium Level 143 136-145 mmol/L Potassium Level 3.3 3.5-5.1 mmol/L Chloride Level 110 98-107 mmol/L Carbon Dioxide Level 28 21-32 mmol/L Anion Gap 5.0 3-11 mmol/L Blood Urea Nitrogen 12 7-18 mg/dl Creatinine 0.54 0.60-1.20 mg/dl Est Creatinine Clear Calc Drug Dose 101.2 ml/min Estimated GFR () 116.4 Estimated GFR (Non- 100.4 BUN/Creatinine Ratio 22.0 10-20 Random Glucose 57 70-99 mg/dl Calcium Level 8.5 8.5-10.1 mg/dl Total Bilirubin 0.4 0.2-1 mg/dl Direct Bilirubin 0.1 0-0.2 mg/dl Aspartate Amino Transf (AST/SGOT) 26 15-37 U/L Alanine Aminotransferase (ALT/SGPT) 26 12-78 U/L Alkaline Phosphatase 61 45-117 U/L Troponin I < 0.015 0-0.045 ng/ml Total Protein 7.0 6.4-8.2 gm/dl Albumin 3.2 3.4-5.0 gm/dl Lipase 199 73-393 U/L Diagnostic Radiology CHEST ONE VIEW PORTABLE CLINICAL HISTORY: Abdominal pain. COMPARISON STUDY: Chest radiograph January 10, 2017. FINDINGS: There are median sternotomy wires, mediastinal surgical clips and a prosthetic aortic valve. Moderate cardiomegaly is noted. There is no pneumothorax. There is no evidence of pulmonary edema. Linear left lower lung opacity favors atelectasis or scarring. IMPRESSION: No acute cardiopulmonary findings. Stable cardiomegaly. No change in appearance of the chest. EKG NSR, T wave inversion in aVL and V5-V6- new when compared to prior EKG, no ST abnormality Impression Assessment and Plan SYMPTOMATIC ANEMIA Acute on chronic iron deficiency anemia in patient on Coumadin (INR 3.7) for mechanical AVR and aspirin for CAD s/p CABG and stent Hg 7.7 as outpatient on 02/21 -> 7.3 today; hemodynamically stable Presents with fatigue, increased WALLER Has received IV iron infusions and PO iron supplement as outpatient Stool was dark and heme positive on ER provider's exam Last colonoscopy 07/2016- hyperplastic polyp; last EGD 12/2016- normal Monitor H/H q6h Transfuse 2 units pRBC with 40 mg IV Lasix in between Hold Coumadin Received dose of IV Protonix in ER Start on Protonix drip Clear liquid diet today then NPO after midnight in case of endoscopy Consult GI Monitor in telemetry HYPOKALEMIA IV replacement ordered Continue PO supplement Monitor DM TYPE 2 With hypoglycemia- Random glucose 57 in ER Hold metformin, Lantus, Humalog Insulin sliding scale coverage Monitor BSG q6h H/O AORTIC VALVE REPLACEMENT S/p mechanical aortic valve replacement 2003 Hold Coumadin due to anemia, GIB Consult cardiology for opinion CHRONIC CHF WITH PRESERVED EF Due to valvular disease Appears euvolemic; CXR- no acute findings Recent echo 02/02/17- The qualitative LV ejection fraction is 55-59% (normal). The LV wall thickness is mildly increased (concentric). There is an aortic valve mechanical prosthesis present. The aortic valve prosthesis systolic gradients are abnormal for this type prosthesis suggesting obstruction. Significant aortic valve prosthesis regurgitation is absent. There is severe mitral annular calcification. The mitral valve leaflets are moderately calcified. Image and Doppler assessment of mitral stenosis severity is discordant: Mild to moderate mitral stenosis is suspected. Mild mitral regurgitation is present. Mild tricuspid regurgitation is present. The proximal ascending thoracic aorta is mildly enlarged. Compared to last available study changes are noted as follows: aortic valve prosthesis systolic gradients have increased Will give 40 mg IV Lasix between transfusions Continue PO Lasix 40 mg BID CORONARY ARTERY DISEASE S/p CABG x 1 in 2010 and stent x 2 in Jun 2016 Stable; denies chest pain Continue aspirin due to hx of stent Continue beta kal and statin ASTHMA Not in acute exacerbation Continue home inhalers/ nebs DEPRESSION/ANXIETY Continue Effexor and Buspar HYPERTENSION BP is stable Continue lisinopril and metoprolol DYSLIPIDEMIA Continue statin DVT PROPHYLAXIS SCD's due to anemia, GIB CODE STATUS Full code per my discussion with the patient DISPOSITION Follows with Dr. Melo for primary care Patient seen in collaboration with Dr. Steve. Please see his addendum. Attending Addendum; The patient was seen and examined Was sent in with low Hb of 7.7 drawn 2 days ago Complains of exertional SOB and tiredness No Chest pain,palpitation O/E Hemodynamically stable Chest-clear to auscultate bilaterally Heart-prosthetic valve sound Abdomen-benign,no masses,bowel sound present Extremities-trace Edema bilaterally Labs and Imaging studies were reviewed Received 2.5 mg Vitamin K IV as per GI Agree with the assessment and plan Dr Elio Stvee VTE Prophylaxis VTE Risk Assessment Done? Y/N: Yes Risk Level: Moderate
[2017-02-23] MEDS: PANTOprazole INJ 40 MG in DEXTROSE 5% 100ML IV SCH ×2 (18:46→22:03)
[2017-02-23] MEDS ORDERED: PHYTONADIONE INJ 2.5 MG in SODIUM CHLORIDE 0.9% 50ML 50 ML IV ONE (19:00)
[2017-02-23] MEDS: POTASSIUM CHLR 10 MEQ / WTR 10 MEQ in PREMIXED WATER 100 ML IV SCH ×2 (19:41→20:05)
[2017-02-23] MEDS: POTASSIUM CHLORIDE 10 MEQ TABCR PO SCH (20:07)
[2017-02-23] MEDS: METOPROLOL TARTRATE 25 MG TAB PO SCH (20:07)
[2017-02-23] MEDS: INSULIN ASPART 100 UNITS/ML 3 ML PEN SC SCH (20:07)
[2017-02-23] MEDS: TRAMADOL HCL 50 MG TAB PO SCH (20:09)
[2017-02-23 20:30] LABS: MANUAL MICROSCOPIC REQUIRED? NO; REVIEW REQ? NO; URINE APPEARANCE CLEAR (CLEAR); URINE BILIRUBIN NEG (NEG); URINE COLOR YELLOW; URINE EPITHELIAL CELL AUTO >30 /lpf (0-5); URINE NITRITE NEG (NEG); URINE PH 5.5 (4.5-7.5); UROBILINOGEN NEG (NEG)
[2017-02-23] MEDS ORDERED: NON-FORMULARY MEDICATION (Iron-Vitamin C (Vitron-C) 1 TAB) PO SCH (21:00)
[2017-02-24] VITALS (7 sets, daily range): BP systolic 97–157; BP diastolic 48–73; PULSE 64–81; TEMP 36.4–36.9; O2SAT 96–99
[2017-02-24 00:57] LABS: HEMATOCRIT 29.8 % (37-47)
[2017-02-24 02:53] LABS: HEMATOCRIT 29.1 % (37-47); MEAN CELL VOLUME 84.1 fL (80-100); MEAN CORPUSCULAR HEMOGLOBIN 24.9 pg (25-34); MEAN CORPUSCULAR HGB CONC 29.6 g/dl (32-36); MEAN PLATELET VOLUME 9.8 fL (7.4-10.4); PLATELET COUNT 165 K/uL (130-400); RED BLOOD COUNT 3.46 M/uL (4.2-5.4); WHITE BLOOD COUNT 3.89 K/uL (4.8-10.8)
[2017-02-24 03:03] LABS: INR 2.1 (0.9-1.1); PROTHROMBIN TIME (PATIENT) 23.4 SECONDS (9.0-12.0)
[2017-02-24 03:15] LABS: BUN/CREATININE RATIO 22.1 (10-20); CALCIUM 8.3 mg/dl (8.5-10.1); CREATININE 0.44 mg/dl (0.60-1.20); MAGNESIUM 1.9 mg/dl (1.8-2.4); POTASSIUM 3.8 mmol/L (3.5-5.1)
[2017-02-24] MEDS: PANTOprazole INJ 40 MG in DEXTROSE 5% 100ML IV SCH ×2 (03:17→08:27)
--- NOTE | 2017-02-24 07:27 | Clinical Documentation Query ---
ROGELIO Gonzalez : CLINICAL DOCUMENTATION QUERY Patient is a 61 year old female admitted for evaluation and treatment of symptomatic anemia. Recent admission for the same with unrevealing EGD at that time. Noted to be on Coumadin (INR 3.7) for mechanical AVR and ASA for CAD s/p CABG and intracoronary stenting. Patient recieved IV Vitamin K, is being transfused PRBC's, is to be seen by GI in consultation, and will be monitored on telemetry with serial hematology. In your clinical opinion is this patient being managed for: ( ) Drug (Coumadin, ASA) induced hemorrhagic disorder ( ) Other explanation of clinical findings (Please Explain) ( ) Unable to determine (Please Define) ( ) Need to Discuss ( ) Not Agree The medical record reflects the following clinical findings, treatment, and risk factors. Clinical Indicators: As above Treatment:Patient recieved IV Vitamin K, is being transfused PRBC's, is to be seen by GI in consultation, and will be monitored on telemetry with serial hematology. PPI infusion, hold Coumadin, hold ASA Risk Factors: Coumadin, ASA use Please clarify and document your clinical opinion in the progress notes and discharge summary. Terms such as "probable", "suspected", "likely", "questionable", "possible", or "still to be ruled out" are acceptable. IF IN AGREEMENT, YOU MUST DOCUMENT ABOVE DIAGNOSTIC STATEMENT IN DAILY PROGRESS NOTES AND DISCHARGE SUMMARY. This document is not part of the patient's record. Thank You, Cornel Ayala, ETIENNE [phone]
--- NOTE | 2017-02-24 07:52 | Gastrointestinal Consultation ---
Gastrointestinal Consultation Date of Consultation: February 24, 2017 Attending Physician: Mara Consulting Physician: Lux Reason for Consultation: melena, VIDHI History of Present Illness Patient is a 61 year old female w/ PMH past significant for history of GI bleed (July, October and December), anemia requiring hospitalization(July, October , December), CAD s/p CABG and stent placement, AVR replacement on Coumadin, DMT2, HTN and dyslipidemia who presented yesterday in the ED after outpatient lab testing with a HGB of 7.7 - GI was consulted for GI bleed. During her previous admission in December for melena, EGD was obtained and normal. HGB on arrival was 7.3 she has had two units of blood since arrival. Pt was seen and evaluated. She has been feeling well since her last admission. She had gone to see her PCP because she felt like she was getting a cold and thats when repeat labs were obtained and she was instructed to come through the ED. She has been having black stools, alternating between semi-formed and formed for the past 2/3 months. She is on PO and IV iron. She tells me she had a bout of looser stools this week after using stool softeners. They were not sticky. Last BM was yesterday around 4pm. No abdominal pain. No epigastric pain. No burping/ belching or difficulty swallowing. No BRBPR. Her only complaint today is from complications from prior hernia repairs with mesh. Denies fever, chills, chest pain, worsening SOB. EGD 01/12/17: No fresh or altered blood. No ulcers.Normal esophagus. Normal stomach. There is a hemostatic clip at prior site of gastric polyp removal from July. Colonoscopy 07/27/16: Non-thrombosed external hemorrhoids found on digital rectal exam. One 8 mm polyp in the descending colon. Internal hemorrhoids. The examination was otherwise normal. VCE 2013: normal, no source of bleeding identified Past Medical/Surgical History Medical Problems: (1) Current use of oysterman anticoagulation Status: Acute (2) Symptomatic anemia Status: Acute (3) Upper gastrointestinal bleed Status: Acute Social History Problems: (1) Mechanical heart valve present Status: Acute Past Medical History: arteriosclerotic cardiovascular disease, Asthma, Cirrhosis, Depression, diabetes mellitus, type 2, Dyslipidemia, GERD, VIDHI Past Surgical History: H/O aortic valve replacement, H/O pericardiectomy H/O ventral hernia repair H/ O incisional hernia repair H/O of cholecystectomy H/O of tonsillectomy H/O angioplasty with stent Family History FH: CAD (coronary artery disease) BROTHER SISTER Social History Smoking Status: Never Smoker Alcohol Use: none Drug Use: none Marital Status: Occupation Status: retired Allergies Coded Allergies: Erythromycin (Verified Allergy, Mild, 02/23/17) Tetracycline (Verified Allergy, Mild, 02/23/17) Ciprofloxacin (Verified Allergy, Unknown, `, 02/23/17) Hydrocodone (Verified Allergy, Unknown, `, 02/23/17) Sulfa Antibiotics (Verified Allergy, Unknown, Unknown rxn, 02/23/17) Current Medications Home Meds and Scripts Medications Dose Route/Sig Max Daily Dose Days Date Category Dose Instructions Aspirin Chewable (Aspirin) 81 Mg Chew 81 Mg PO DAILY 02/23/17 Reported Duoneb (Ipratropium-Albuterol) 3 Ml Nebu 1 Treatment INH QID PRN 02/23/17 Reported K-Tabs (Potassium Chloride) 10 Meq Tabcr 10 Meq PO QPM 02/23/17 Reported Buspirone HCl 5 Mg Tab 5 Mg PO BID PRN 01/10/17 Reported Humalog (Insulin Lispro (Human)) 100 Unit/Ml Inj 20 Units SQ TIDM 01/10/17 Reported Lantus (Insulin Glargine) 100 Unit/Ml Inj 40 Units SC QAM 01/10/17 Reported Ultram (Tramadol HCl) 50 Mg Tab 50 Mg PO Q12 01/10/17 Reported Coumadin (Warfarin Sod) 6 Mg Tab 6 Mg PO 5XWK 01/10/17 Reported Flonase Allergy Relief (Fluticasone Propionate (Nasal)) 50 Mcg/Act Spr 2 Sprays BENITO DAILY PRN 07/26/16 Reported Proventil Hfa (Albuterol Sulfate) 108 Mcg/Act Aer 2 Puffs PO Q4H PRN 07/26/16 Reported Zofran (Ondansetron HCl) 4 Mg Tab 4 Mg PO Q6 PRN 07/26/16 Reported Vitamin D3 (Cholecalciferol) 2,000 Unit Cap 2,000 Unit PO DAILY 07/26/16 Reported Venlafaxine Hcl Er (Venlafaxine Hcl) 150 Mg Tab 150 Mg PO QAM 07/26/16 Reported Lipitor (Atorvastatin Calcium) 80 Mg Tab 80 Mg PO DAILY 07/26/16 Reported Prilosec (Omeprazole) 20 Mg Capcr 20 Mg PO DAILY 07/26/16 Reported Nitrostat (Nitroglycerin) 0.4 Mg Tab 0.4 Mg UT UD PRN 07/26/16 Reported Coumadin (Warfarin Sodium) 4 Mg Tab 4 Mg PO 2XWK 07/26/16 Reported TUESDAY AND TUESDAY ONLY Combivent Respimat (Ipratropium-Albuterol) 1 Aer Aer 2 Puffs INH BID PRN 07/26/16 Reported Vitron-C (Iron-Vitamin C) 1 Tab Tab 1 Tab PO BID 02/18/16 Reported Folic Acid 1 Mg Tab 2 Mg PO DAILY 02/18/16 Reported Glucophage (Metformin Hcl) 1,000 Mg Tab 1,000 Mg PO BID 01/24/12 Reported Lopressor (Metoprolol Tartrate) 25 Mg Tab 25 Mg PO BID 01/24/12 Reported Zestril (Lisinopril) 5 Mg Tab 5 Mg PO QAM 01/24/12 Reported Lasix (Furosemide) 40 Mg Tab 40 Mg PO BID 10/12/06 Reported Micro-K Ext Rel (Potassium Chloride) 10 Meq Capcr 20 Meq PO QAM 10/12/06 Reported Review of Systems Constitutional: No chills, No fever Respiratory: + shortness of breath (unchanged from baseline), No cough Cardiac: No chest pain, No edema Abdomen: No nausea, No pain, No vomiting Skin: + itch (generalized from mesh) Physical Exam Date Time Temp Pulse Resp B/P Pulse Ox O2 Delivery O2 Flow Rate FiO2 02/24/17 07:22 36.6 78 18 144/71 98 Room Air 02/24/17 04:01 36.7 73 20 97/48 99 Room Air 02/24/17 04:00 Room Air 02/24/17 00:00 Room Air 02/23/17 23:50 36.7 72 20 115/73 99 Room Air 02/23/17 22:45 36.0 70 16 107/67 100 02/23/17 21:45 36.8 71 16 124/76 97 02/23/17 21:15 36.8 74 16 127/77 97 02/23/17 20:45 36.6 78 18 117/61 98 02/23/17 20:40 36.7 84 18 127/77 99 02/23/17 20:35 36.8 81 18 139/80 98 02/23/17 20:25 36.7 82 18 129/84 98 02/23/17 20:00 Room Air 02/23/17 19:00 36.7 84 26 119/69 98 02/23/17 18:30 36.7 80 24 128/79 99 02/23/17 18:00 36.7 76 26 129/65 97 02/23/17 17:40 36.7 84 24 117/74 98 02/23/17 16:38 36.9 80 16 102/63 100 02/23/17 16:15 92 20 105/64 100 Room Air 02/23/17 15:07 76 02/23/17 14:31 77 20 102/54 100 Room Air General Appearance: no apparent distress Eyes: PERRL ENT: hearing grossly normal Neck: supple, no adenopathy Respiratory/Chest: lungs clear, normal breath sounds, no respiratory distress, no accessory muscle use Cardiovascular: regular rate, rhythm, no gallop, no JVD, + systolic murmur, + pertinent finding (mechanical valve) Abdomen: normal bowel sounds, non tender, soft, no organomegaly Neurologic/Psych: alert, normal mood/affect, oriented x 3 Skin: normal color, no jaundice, warm/dry, no rash, + pertinent finding ( ulcerations on her abdomen, chest, neck, and chin - appear to be healing) Laboratory Results Last 24 Hours Test 02/23/17 14:50 02/23/17 20:08 02/24/17 00:39 02/24/17 02:46 White Blood Count 4.02 K/uL 3.89 K/uL Red Blood Count 2.93 M/uL 3.46 M/uL Hemoglobin 7.3 g/dL 8.7 g/dL 8.6 g/dL Hematocrit 25.4 % 29.8 % 29.1 % Mean Corpuscular Volume 86.7 fL 84.1 fL Mean Corpuscular Hemoglobin 24.9 pg 24.9 pg Mean Corpuscular Hemoglobin Concent 28.7 g/dl 29.6 g/dl Platelet Count 186 K/uL 165 K/uL Mean Platelet Volume 9.3 fL 9.8 fL Neutrophils (%) (Auto) 72.9 % Lymphocytes (%) (Auto) 14.4 % Monocytes (%) (Auto) 10.2 % Eosinophils (%) (Auto) 2.0 % Basophils (%) (Auto) 0.5 % Neutrophils # (Auto) 2.93 K/uL Lymphocytes # (Auto) 0.58 K/uL Monocytes # (Auto) 0.41 K/uL Eosinophils # (Auto) 0.08 K/uL Basophils # (Auto) 0.02 K/uL RDW Standard Deviation 63.6 fL 56.2 fL RDW Coefficient of Variation 19.9 % 18.2 % Immature Granulocyte % (Auto) 0.0 % Immature Granulocyte # (Auto) 0.00 K/uL Polychromasia 1+ Hypochromasia PRESENT Anisocytosis PRESENT Absolute Reticulocyte Count 0.15 10^6/uL Percent Reticulocyte Count 5.1 % Immature Reticulocyte Fraction 20.0 % Reticulocyte Hemoglobin Content 19.4 PG Prothrombin Time 41.9 SECONDS 23.4 SECONDS Prothromb Time International Ratio 3.7 2.1 Activated Partial Thromboplast Time 38.6 SECONDS Partial Thromboplastin Ratio 1.5 Sodium Level 143 mmol/L 141 mmol/L Potassium Level 3.3 mmol/L 3.8 mmol/L Chloride Level 110 mmol/L 109 mmol/L Carbon Dioxide Level 28 mmol/L 27 mmol/L Anion Gap 5.0 mmol/L 5.0 mmol/L Blood Urea Nitrogen 12 mg/dl 10 mg/dl Creatinine 0.54 mg/dl 0.44 mg/dl Est Creatinine Clear Calc Drug Dose 101.2 ml/min 124.0 ml/min Estimated GFR () 116.4 124.5 Estimated GFR (Non- 100.4 107.4 BUN/Creatinine Ratio 22.0 22.1 Random Glucose 57 mg/dl 110 mg/dl Calcium Level 8.5 mg/dl 8.3 mg/dl Magnesium Level 1.9 mg/dl 1.9 mg/dl Total Bilirubin 0.4 mg/dl Direct Bilirubin 0.1 mg/dl Aspartate Amino Transf (AST/SGOT) 26 U/L Alanine Aminotransferase (ALT/SGPT) 26 U/L Alkaline Phosphatase 61 U/L Troponin I < 0.015 ng/ml Total Protein 7.0 gm/dl Albumin 3.2 gm/dl Lipase 199 U/L Bedside Glucose 154 mg/dl Impression Patient is a 61 year old female with a significant past medical history of GI bleed on anticoagulation. She has had numerous endoscopic evaluations for evaluation of VIDHI and melena. Of note a negative VCE in 2013, negative colonoscopy in July 2016 and a negative EGD in December 2016. She has black stools that alternate between semi-formed, formed and bouts of loose stools if she uses stool softeners. No BRBPR, hematemesis or coffee ground emesis. Her vitals are stable. S/P 2 units of packed RBCs Plan GI is ok for diet as tolerated - will leave advanced of diet up to primary team. No plan for inpatient procedure at this time. Monitor H&H. Transfuse as needed. PO PPI BID - continue this as an outpatient. Out patient VCE - I will have our schedulers contact Taylor Eric. Suggest discussion between primary team and cardiology about use of anticoagulation given frequency of VIDHI with suspected GI bleeds. GI to sign off. Please call with any questions or concerns. I saw and evaluated the patient. Gastroenterology as consult to due to a question of gastrointestinal bleeding. She does have a history of recurrent bleeding which appears to be related to use of anticoagulation and antiplatelet agents. She's had several upper endoscopies in the recent past and a recent colonoscopy without a specific etiology. Patient notes that her symptoms have resolved today. Physical examination No obvious distress No abdominal tenderness Impression: Patient with a history of occult gastrointestinal bleeding likely related to combination antiplatelet and anticoagulation therapy. She's had numerous upper endoscopies, a recent colonoscopy and even a capsule endoscopy in the past without a specific lesion identified. Given this, repeat endoscopic procedures would probably not be beneficial for her at the present time. 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
[2017-02-24] MEDS: METOPROLOL TARTRATE 25 MG TAB PO SCH ×2 (08:29→20:32)
[2017-02-24] MEDS: ASPIRIN 81 MG ECTAB PO SCH (08:30)
[2017-02-24] MEDS: ATORVASTATIN 40 MG TAB PO SCH (08:30)
[2017-02-24] MEDS: FUROSEMIDE 40 MG TAB PO SCH ×2 (08:31→17:13)
[2017-02-24] MEDS: CHOLECALCIFEROL 1000 INTER.UNIT TAB PO SCH (08:31)
[2017-02-24] MEDS: VENLAFAXINE HCL XR 150 MG CAPXR PO SCH (08:32)
[2017-02-24] MEDS: LISINOPRIL 5 MG TAB PO SCH (08:32)
[2017-02-24] MEDS: POTASSIUM CHLORIDE 10 MEQ TABCR PO SCH ×2 (08:33→20:32)
[2017-02-24] MEDS: INSULIN ASPART 100 UNITS/ML 3 ML PEN SC SCH ×4 (08:40→20:30)
[2017-02-24] MEDS: TRAMADOL HCL 50 MG TAB PO SCH ×2 (08:40→20:38)
[2017-02-24 09:55] LABS: HEMATOCRIT 28.8 % (37-47)
--- NOTE | 2017-02-24 12:06 | Progress Note ---
Medicine Progress Note Date & Time of Visit: February 24, 2017 at 11:49. Subjective patient seen sitting up in bed, comfortable states she feels improved today no dyspnea, chest pain, dizziness, weakness, Objective Last 8 Hrs Date Time Temp Pulse Resp B/P Pulse Ox O2 Delivery O2 Flow Rate FiO2 02/24/17 11:21 36.9 73 18 118/69 97 Room Air 02/24/17 07:22 36.6 78 18 144/71 98 Room Air 02/24/17 04:01 36.7 73 20 97/48 99 Room Air 02/24/17 04:00 Room Air Physical Exam: General- oriented x 3, not in distress, speaks in sentences with no effort Head- atraumatic Eyes- EOMI, anicteric ENT- oropharynx clear Neck- supple, no JVD, no adenopathy, no thyromegaly; no bruits appreciated Lungs- clear breath sounds bilaterally Heart- normal rate, regular rhythm; no murmurs Abdomen- normal bowel sounds, soft, nontender Extremities- no pretibial edema, no calf tenderness; peripheral pulses intact Neuro- alert, oriented x 3; no gross focal deficits Skin- warm & dry chin: (+) dry area with scabbing wound anterior neck: dry erythematous area Laboratory Results: Last 24 Hours Test 02/23/17 14:50 02/23/17 20:08 02/24/17 00:39 02/24/17 02:46 White Blood Count 4.02 K/uL 3.89 K/uL Red Blood Count 2.93 M/uL 3.46 M/uL Hemoglobin 7.3 g/dL 8.7 g/dL 8.6 g/dL Hematocrit 25.4 % 29.8 % 29.1 % Mean Corpuscular Volume 86.7 fL 84.1 fL Mean Corpuscular Hemoglobin 24.9 pg 24.9 pg Mean Corpuscular Hemoglobin Concent 28.7 g/dl 29.6 g/dl Platelet Count 186 K/uL 165 K/uL Mean Platelet Volume 9.3 fL 9.8 fL Neutrophils (%) (Auto) 72.9 % Lymphocytes (%) (Auto) 14.4 % Monocytes (%) (Auto) 10.2 % Eosinophils (%) (Auto) 2.0 % Basophils (%) (Auto) 0.5 % Neutrophils # (Auto) 2.93 K/uL Lymphocytes # (Auto) 0.58 K/uL Monocytes # (Auto) 0.41 K/uL Eosinophils # (Auto) 0.08 K/uL Basophils # (Auto) 0.02 K/uL RDW Standard Deviation 63.6 fL 56.2 fL RDW Coefficient of Variation 19.9 % 18.2 % Immature Granulocyte % (Auto) 0.0 % Immature Granulocyte # (Auto) 0.00 K/uL Polychromasia 1+ Hypochromasia PRESENT Anisocytosis PRESENT Absolute Reticulocyte Count 0.15 10^6/uL Percent Reticulocyte Count 5.1 % Immature Reticulocyte Fraction 20.0 % Reticulocyte Hemoglobin Content 19.4 PG Prothrombin Time 41.9 SECONDS 23.4 SECONDS Prothromb Time International Ratio 3.7 2.1 Activated Partial Thromboplast Time 38.6 SECONDS Partial Thromboplastin Ratio 1.5 Sodium Level 143 mmol/L 141 mmol/L Potassium Level 3.3 mmol/L 3.8 mmol/L Chloride Level 110 mmol/L 109 mmol/L Carbon Dioxide Level 28 mmol/L 27 mmol/L Anion Gap 5.0 mmol/L 5.0 mmol/L Blood Urea Nitrogen 12 mg/dl 10 mg/dl Creatinine 0.54 mg/dl 0.44 mg/dl Est Creatinine Clear Calc Drug Dose 101.2 ml/min 124.0 ml/min Estimated GFR () 116.4 124.5 Estimated GFR (Non- 100.4 107.4 BUN/Creatinine Ratio 22.0 22.1 Random Glucose 57 mg/dl 110 mg/dl Calcium Level 8.5 mg/dl 8.3 mg/dl Magnesium Level 1.9 mg/dl 1.9 mg/dl Total Bilirubin 0.4 mg/dl Direct Bilirubin 0.1 mg/dl Aspartate Amino Transf (AST/SGOT) 26 U/L Alanine Aminotransferase (ALT/SGPT) 26 U/L Alkaline Phosphatase 61 U/L Troponin I < 0.015 ng/ml Total Protein 7.0 gm/dl Albumin 3.2 gm/dl Lipase 199 U/L Bedside Glucose 154 mg/dl Test 02/24/17 06:43 02/24/17 09:10 02/24/17 11:08 02/24/17 11:26 Bedside Glucose 119 mg/dl Hemoglobin 8.5 g/dL Hematocrit 28.8 % Assessment & Plan 61 year old female with history of CAD, CABG, Stent; Mechanical Aortic Valve on Coumadin, [place] Cirrhosis, DM, HTN, HLD presenting with weakness. SYMPTOMATIC ANEMIA HISTORY OF IRON DEFICIENCY ANEMIA R/O HEMOLYSIS GI BLEED UNLIKELY -- Acute on chronic iron deficiency anemia in patient on Coumadin (INR 3.7) for mechanical AVR and aspirin for CAD s/p CABG and stent -- discharge last December 2016 with Hg 9 in January 2017, Hg decreased to 8 re-admitted with Hg 7.3 -- on IV iron and PO Iron as outpatient -- given 2 units pRBC Hg improved to 8.5 check Iron, LDH, Bili, Haptoglobin, Peripheral Smear -- evaluated by GI recent EGD, Colonoscopy unrevealing no further scoping recommended at this time -- on coumadin for mechanical aortic valve INR 3.7 on admission given VIt K 2.5mg IV now INR 2.1 due to mechanical aortic valve, may need to continue anticoagulation and just monitor Hg closely will discuss with Cardiology H/O AORTIC VALVE REPLACEMENT S/p mechanical aortic valve replacement 2003 Coumadin held due to anemia, GIB Consulted cardiology CHRONIC CHF WITH PRESERVED EF Due to valvular disease Appears euvolemic; CXR- no acute findings Recent echo 02/02/17- The qualitative LV ejection fraction is 55-59% (normal). The LV wall thickness is mildly increased (concentric). There is an aortic valve mechanical prosthesis present. The aortic valve prosthesis systolic gradients are abnormal for this type prosthesis suggesting obstruction. Significant aortic valve prosthesis regurgitation is absent. There is severe mitral annular calcification. The mitral valve leaflets are moderately calcified. Image and Doppler assessment of mitral stenosis severity is discordant: Mild to moderate mitral stenosis is suspected. Mild mitral regurgitation is present. Mild tricuspid regurgitation is present. The proximal ascending thoracic aorta is mildly enlarged. Compared to last available -- -- euvolemic -- Continue PO Lasix 40 mg BID CORONARY ARTERY DISEASE S/p CABG x 1 in 2010 and stent x 2 in Jun 2016 Continue aspirin due to hx of stent Continue beta kal and statin DM TYPE 2 With hypoglycemia- Random glucose 57 in ER Hold metformin, Lantus, Humalog Insulin sliding scale coverage Monitor BSG q6h -- consult Pharmacy HYPOKALEMIA repleted resolved ASTHMA Not in acute exacerbation Continue home inhalers/ nebs DEPRESSION/ANXIETY Continue Effexor and Buspar HYPERTENSION Continue lisinopril and metoprolol DYSLIPIDEMIA Continue statin DVT PROPHYLAXIS SCD's due to anemia, GIB CODE STATUS Full code DISPOSITION lives at home PT kelly anticipate d/c home when medically stable Current Inpatient Medications: Current Inpatient Medications Medications (Trade) Dose Ordered Sig/[place] Route Start Time Stop Time Status Last Admin Dose Admin Acetaminophen (Tylenol Tab) 650 mg Q4H PRN PO 02/23/17 16:15 03/25/17 16:14 Ondansetron HCl (Zofran Inj) 4 mg Q6H PRN IV 02/23/17 16:15 03/25/17 16:14 Insulin Aspart (novoLOG ASPART) SLIDING SCALE If C... ACHS SC 02/23/17 21:00 03/25/17 20:59 02/24/17 08:40 4 UNITS Glucose (Glucose 40% Gel) 15-30 GRAMS 15 GRAMS... UD PRN PO 02/23/17 16:30 03/25/17 16:29 Glucose (Glucose Chew Tab) 4-8 Tablets 4 Tabl... UD PRN PO 02/23/17 16:30 03/25/17 16:29 Dextrose (Dextrose 50% 50ML Syringe) 25-50ML OF 50% DW IV FOR... UD PRN IV 02/23/17 16:30 03/25/17 16:29 Glucagon 1 mg 1 mg UD PRN SQ 02/23/17 16:30 03/25/17 16:29 Pantoprazole Sodium/Dextrose (Protonix Inj/D5 100ml) 100 ml @ 20 mls/hr Q5H IV 02/23/17 17:00 03/25/17 16:59 02/24/17 08:27 20 MLS/HR Albuterol (Ventolin Hfa Inhaler) 2 puffs Q4H PRN INH 02/23/17 16:45 03/25/17 16:44 Aspirin (Ecotrin Tab) 81 mg DAILY PO 02/24/17 09:00 03/26/17 08:59 02/24/17 08:30 81 MG Atorvastatin Calcium (Lipitor Tab) 80 mg DAILY PO 02/24/17 09:00 03/26/17 08:59 02/24/17 08:30 80 MG Buspirone HCl (Buspar Tab) 5 mg BID PRN PO 02/23/17 16:45 03/25/17 16:44 02/24/17 08:32 5 MG Fluticasone Propionate (Flonase Nasal Mach[place]) 2 sprays DAILY PRN BENITO 02/23/17 16:45 03/25/17 16:44 Folic Acid (Folvite Tab) 2 mg DAILY PO 02/24/17 09:00 03/26/17 08:59 02/24/17 08:31 2 MG Furosemide (Lasix Tab) 40 mg BID17 PO 02/24/17 09:00 03/26/17 08:59 02/24/17 08:31 40 MG Albuterol/ Ipratropium (Combivent Respimat Inh) 2 puffs BID PRN INH 02/23/17 16:45 03/25/17 16:44 Albuterol/ Ipratropium (Duoneb) 3 ml QIDR PRN INH 02/23/17 16:45 03/25/17 16:44 Lisinopril (Zestril Tab) 5 mg QAM PO 02/24/17 09:00 03/26/17 08:59 02/24/17 08:32 5 MG Metoprolol Tartrate (Lopressor Tab) 25 mg BID PO 02/23/17 21:00 03/25/17 20:59 02/24/17 08:29 25 MG Nitroglycerin (Nitrostat Tab) 0.4 mg UD PRN UT 02/23/17 16:45 03/25/17 16:44 Ondansetron HCl (Zofran Tab) 4 mg Q6 PRN PO 02/23/17 16:45 03/25/17 16:44 Potassium Chloride (Klor-Con M10) 20 meq QAM PO 02/24/17 09:00 03/26/17 08:59 02/24/17 08:33 20 MEQ Tramadol HCl (Ultram Tab) 50 mg Q12 PO 02/23/17 21:00 03/25/17 20:59 02/24/17 08:40 50 MG Venlafaxine HCl (effeXOR EXTENDED REL CAP) 150 mg QAM PO 02/24/17 09:00 03/26/17 08:59 02/24/17 08:32 150 MG Cholecalciferol (Vitamin D Tab) 2,000 inter.unit DAILY PO 02/24/17 09:00 03/26/17 08:59 02/24/17 08:31 2,000 INTER.UNIT Potassium Chloride (Klor-Con M10) 10 meq QPM PO 02/23/17 21:00 03/25/17 20:59 02/23/17 20:07 10 MEQ
[2017-02-24] MEDS ORDERED: PHARMACY GLYCEMIC MGMT CONSULT PRN (12:19)
[2017-02-24] MEDS: INSULIN GLARGINE SOLOSTAR 100 UNITS/ML 3 ML PEN SC SCH (13:59)
--- NOTE | 2017-02-24 14:02 | Cardiology Consultation ---
Cardiology Consultation Date of Service February 24, 2017. (Alanna Campos PA-C) Cardiology Consultation SUBJECTIVE: Lesley Reyes is a 61 year old female with a complex past medical history as described below. She typically follows with Dr. Liu / Wing Reynolds PAC for cardiac care For history of mechanical aortic valve, CAD. Over the last year patient has developed symptomatic anemia requiring high dose on iron supplementation and now intravenous iron therapy. She has undergone EGD and colonoscopy over the last 6 months without evidence of gross bleeding. Patient presented to her PCP office yesterday with complaints of shortness of breath and Notable pallor. Labs demonstrated a hemoglobin of 7.7. she was subsequently transferred to [facility] for further evaluation. She has received 2 units packed red blood cells with improvement in her symptoms and hemoglobin levels. in the emergency room fecal occult blood test was positive. GI has been consulted for recommendations. No gross bleeding noted by patient. Dark stools noted over the last few months since starting IV iron supplementation. She I has recommended outpatient video scope to evaluate small bowel. No further testing was recommended as an inpatient. At time of consult patient is sitting up feeling well. She denies recurrent or worsening shortness of breath. No chest pain. No orthopnea, PND or lower extremity edema. No sense of palpitations or tachy palpitations. Her ongoing primary concern is issues with her mesh from hernia repairs. The mesh is disintegrating and she reports the mesh is coming out through her skin and multiple areas of her body. Most recently this week she had a piece come out of her chin which is now red and swollen. She also reports a piece coming out from her jawline. She has been evaluated by general surgery in [place] for this issue. She reports being scheduled for a CT scan and is awaiting to hear of further plans. Problem List: 1.Aortic valve disease .s/p replacement in 1997 (in the setting of acute pericardial effusion & CHF) receiving a 24 mm aortic Freestyle replacement & undergoing pericardiotomy. 2.Repeat presentation with worsening aortic valve disease, shortness of breath & CHF, ultimately resulting in redo aortic valve replacement and single vessel CABG with a #19mm [employer] mechanical prosthesis and a GOULD graft to the LAD in October of 2004. 3.Presentation to Dr. Adams's Office with exertional dyspnea, chest heaviness , and exertional low back pain leading to abnormal nuclear stress testing and ultimately diagnostic 05/25/2016 cardiac catheterization (via left radial artery) demonstrating an 80% mid LAD stenosis treated with a 2.5x28mm bare metal stent. Specific angiography revealed a large left main that was described as mildly diseased. The LAD was described as severely diseased with an 80% 12 mm long culprit lesion in the mid LAD. The distal LAD was large in size and severely diseased with 100% distal LAD lesion. The GOULD to the LAD was patent. There was a 50% lesion in the proximal left circumflex coronary artery with mild disease in the distal circumflex as well as 1st and 2nd obtuse marginals. The right coronary artery was described as dominant, mildly disease and mildly calcified. 3.Presentation to [facility] on July 26, 2016 (to July 30, 2016) with symptomatic anemia. Status post transfusion of 3 U PRBC's. No source of bleeding identified on EGD or colonoscopy. 4.Admission to [facility] in December 2016 with symptomatic anemia, status post 2 U PRBC' s. EGD negative. 5.Chronic anemia. Iron deficiency. Valvular hemolysis. 6.Mild mitral stenosis 7.Chronic ILBBB/LBBB. 8.Insulin requiring diabetes mellitus 9.Hypertension 10.Hyperlipidemia 11.Chronic obstructive lung disease 12.Asthma 13.MARIAH treated with CPAP therapy. 14.Obesity 15.NAFLD cirrhosis 16.GERD PAST SURGICAL HISTORY: As described above. SOCIAL HISTORY: The patient is a lifelong nonsmoker. She admits to occasional alcohol use; however, quit 25 years ago. FAMILY HISTORY: Negative for premature CAD or sudden cardiac . Review of patient's allergies indicates: Ciprofloxacin Cats [Cat Dander] Erythromycin Hydrocodone Sulfa Antibiotics Tetracycline Reported Home Medications Medications Dose Route/Sig Max Daily Dose Days Date Category Dose Instructions Aspirin Chewable (Aspirin) 81 Mg Chew 81 Mg PO DAILY 02/23/17 Reported Duoneb (Ipratropium-Albuterol) 3 Ml Nebu 1 Treatment INH QID PRN 02/23/17 Reported K-Tabs (Potassium Chloride) 10 Meq Tabcr 10 Meq PO QPM 02/23/17 Reported Buspirone HCl 5 Mg Tab 5 Mg PO BID PRN 01/10/17 Reported Humalog (Insulin Lispro (Human)) 100 Unit/Ml Inj 20 Units SQ TIDM 01/10/17 Reported Lantus (Insulin Glargine) 100 Unit/Ml Inj 40 Units SC QAM 01/10/17 Reported Ultram (Tramadol HCl) 50 Mg Tab 50 Mg PO Q12 01/10/17 Reported Coumadin (Warfarin Sod) 6 Mg Tab 6 Mg PO 5XWK 01/10/17 Reported Flonase Allergy Relief (Fluticasone Propionate (Nasal)) 50 Mcg/Act Spr 2 Sprays BENITO DAILY PRN 07/26/16 Reported Proventil Hfa (Albuterol Sulfate) 108 Mcg/Act Aer 2 Puffs PO Q4H PRN 07/26/16 Reported Zofran (Ondansetron HCl) 4 Mg Tab 4 Mg PO Q6 PRN 07/26/16 Reported Vitamin D3 (Cholecalciferol) 2,000 Unit Cap 2,000 Unit PO DAILY 07/26/16 Reported Venlafaxine Hcl Er (Venlafaxine Hcl) 150 Mg Tab 150 Mg PO QAM 07/26/16 Reported Lipitor (Atorvastatin Calcium) 80 Mg Tab 80 Mg PO DAILY 07/26/16 Reported Prilosec (Omeprazole) 20 Mg Capcr 20 Mg PO DAILY 07/26/16 Reported Nitrostat (Nitroglycerin) 0.4 Mg Tab 0.4 Mg UT UD PRN 07/26/16 Reported Coumadin (Warfarin Sodium) 4 Mg Tab 4 Mg PO 2XWK 07/26/16 Reported TUESDAY AND TUESDAY ONLY Combivent Respimat (Ipratropium-Albuterol) 1 Aer Aer 2 Puffs INH BID PRN 07/26/16 Reported Vitron-C (Iron-Vitamin C) 1 Tab Tab 1 Tab PO BID 02/18/16 Reported Folic Acid 1 Mg Tab 2 Mg PO DAILY 02/18/16 Reported Glucophage (Metformin Hcl) 1,000 Mg Tab 1,000 Mg PO BID 01/24/12 Reported Lopressor (Metoprolol Tartrate) 25 Mg Tab 25 Mg PO BID 01/24/12 Reported Zestril (Lisinopril) 5 Mg Tab 5 Mg PO QAM 01/24/12 Reported Lasix (Furosemide) 40 Mg Tab 40 Mg PO BID 10/12/06 Reported Micro-K Ext Rel (Potassium Chloride) 10 Meq Capcr 20 Meq PO QAM 10/12/06 Reported OBJECTIVE/PHYSICAL EXAMINATION: Last 8 Hrs Date Time Temp Pulse Resp B/P Pulse Ox O2 Delivery O2 Flow Rate FiO2 5/11/17 11:21 36.9 73 18 118/69 97 Room Air 02/24/17 07:22 36.6 78 18 144/71 98 Room Air General: Obese. HEENT: Normocephalic. PER. Conjunctiva pink, sclera clear. Transmitted systolic murmur to the base of the carotids. No JVD. Heart: RRR. Hand mechanical valve sounds. Grade II/ systolic ejection murmur. There is a grade I-II/ diastolic murmur heard above the apex. Lungs: Clear to auscultation. Abdomen: Obese. Surgical scars noted. +BS. Soft. Nontender. No masses or organomegaly. Extremities: No clubbing, cyanosis, or peripheral edema. Data: EKG on admission; Normal sinus rhythm Non-specific intra-ventricular conduction block T wave abnormality, consider lateral ischemia Abnormal ECG When compared with ECG of 10-JAN-2017 19:00, Inverted T waves have replaced nonspecific T wave abnormality in Lateral leads Echocardiogram reviewed, per report in 01/2017 at [facility] Interpretation Summary The qualitative LV ejection fraction is 5559% (normal). The LV wall thickness is mildly increased (concentric). There is an aortic valve mechanical prosthesis present. The aortic valve prosthesis systolic gradients are abnormal for this type prosthesis suggesting obstruction. Significant aortic valve prosthesis regurgitation is absent. There is severe mitral annular calcification. The mitral valve leaflets are moderately calcified. Image and Doppler assessment of mitral stenosis severity is discordant: Mild to moderate mitral stenosis is suspected. Mild mitral regurgitation is present. Mild tricuspid regurgitation is present. The proximal ascending thoracic aorta is mildly enlarged. Compared to last available study changes are noted as follows: aortic valve prosthesis systolic gradients have increased May 19, 2016 TTE Interpretation Summary (as per Dr. Catsro): There is severe mitral annular calcification. The mitral valve abnormalities are due to senile calcification. At least mild Mitral stenosis is suspected. Mild mitral regurgitation is present. There is an aortic valve mechanical prosthesis present. Overall normal prosthetic valve function. The left ventricular cavity size is mildly enlarged. The qualitative LV ejection fraction is 50-54% (normal) . The right ventricular systolic function is qualitatively normal. The left atrium is moderately enlarged. The right atrial size is normal. Mild tricuspid regurgitation is present. There is no evidence of pulmonary hypertension. EGD 01/12/17: No fresh or altered blood. No ulcers.Normal esophagus. Normal stomach. There is a hemostatic clip at prior site of gastric polyp removal from July. Colonoscopy 07/27/16: Non-thrombosed external hemorrhoids found on digital rectal exam. One 8 mm polyp in the descending colon. Internal hemorrhoids. The examination was otherwise normal. VCE 2013: normal, no source of bleeding identified Labs: Last 24 Hours Test 02/23/17 14:50 02/23/17 20:08 02/24/17 00:39 02/24/17 02:46 White Blood Count 4.02 K/uL 3.89 K/uL Red Blood Count 2.93 M/uL 3.46 M/uL Hemoglobin 7.3 g/dL 8.7 g/dL 8.6 g/dL Hematocrit 25.4 % 29.8 % 29.1 % Mean Corpuscular Volume 86.7 fL 84.1 fL Mean Corpuscular Hemoglobin 24.9 pg 24.9 pg Mean Corpuscular Hemoglobin Concent 28.7 g/dl 29.6 g/dl Platelet Count 186 K/uL 165 K/uL Mean Platelet Volume 9.3 fL 9.8 fL Neutrophils (%) (Auto) 72.9 % Lymphocytes (%) (Auto) 14.4 % Monocytes (%) (Auto) 10.2 % Eosinophils (%) (Auto) 2.0 % Basophils (%) (Auto) 0.5 % Neutrophils # (Auto) 2.93 K/uL Lymphocytes # (Auto) 0.58 K/uL Monocytes # (Auto) 0.41 K/uL Eosinophils # (Auto) 0.08 K/uL Basophils # (Auto) 0.02 K/uL RDW Standard Deviation 63.6 fL 56.2 fL RDW Coefficient of Variation 19.9 % 18.2 % Immature Granulocyte % (Auto) 0.0 % Immature Granulocyte # (Auto) 0.00 K/uL Polychromasia 1+ Hypochromasia PRESENT Anisocytosis PRESENT Absolute Reticulocyte Count 0.15 10^6/uL Percent Reticulocyte Count 5.1 % Immature Reticulocyte Fraction 20.0 % Reticulocyte Hemoglobin Content 19.4 PG Prothrombin Time 41.9 SECONDS 23.4 SECONDS Prothromb Time International Ratio 3.7 2.1 Activated Partial Thromboplast Time 38.6 SECONDS Partial Thromboplastin Ratio 1.5 Sodium Level 143 mmol/L 141 mmol/L Potassium Level 3.3 mmol/L 3.8 mmol/L Chloride Level 110 mmol/L 109 mmol/L Carbon Dioxide Level 28 mmol/L 27 mmol/L Anion Gap 5.0 mmol/L 5.0 mmol/L Blood Urea Nitrogen 12 mg/dl 10 mg/dl Creatinine 0.54 mg/dl 0.44 mg/dl Est Creatinine Clear Calc Drug Dose 101.2 ml/min 124.0 ml/min Estimated GFR () 116.4 124.5 Estimated GFR (Non- 100.4 107.4 BUN/Creatinine Ratio 22.0 22.1 Random Glucose 57 mg/dl 110 mg/dl Calcium Level 8.5 mg/dl 8.3 mg/dl Magnesium Level 1.9 mg/dl 1.9 mg/dl Total Bilirubin 0.4 mg/dl Direct Bilirubin 0.1 mg/dl Aspartate Amino Transf (AST/SGOT) 26 U/L Alanine Aminotransferase (ALT/SGPT) 26 U/L Alkaline Phosphatase 61 U/L Troponin I < 0.015 ng/ml Total Protein 7.0 gm/dl Albumin 3.2 gm/dl Lipase 199 U/L Bedside Glucose 154 mg/dl Test 02/24/17 06:43 02/24/17 09:10 02/24/17 11:12 02/24/17 11:58 Bedside Glucose 119 mg/dl 259 mg/dl Hemoglobin 8.5 g/dL Hematocrit 28.8 % Peripheral Blood Smear Path Consult Iron Level 31 mcg/dl Total Bilirubin 1.2 mg/dl Direct Bilirubin 0.4 mg/dl Lactate Dehydrogenase 262 U/L ASSESSMENT and PLAN: : Markedly complex 61 year old female 1. Symptomatic anemia, symptoms improved after 2 units PRBC -monitor H&H in AM -resume Coumadin tonight -schedule outpatient video scope with GI -continue PO iron and IV iron PRN 2. Mechanical aortic valve - must be maintained on anticoagulation therapy despite +FOBT and anemia status. 3. CAD s/p BMS in 05/2016 - on ASA. Plavix discontinued in 07/2016. -no specific anginal symptoms. Case discussed with Dr. Beebe. will follow. (Alanna Campos, PA-C) Cardiology attending physician: Patient seen and examined at the bedside. Notes dark-colored stools which is chronic. Patient received 2 units of packed red blood cells. Her hemoglobin has increased appropriately. Gastroenterology has evaluated the patient. No further studies recommended at this time. She denies chest pain or unusual shortness of breath. No orthopnea, PND, lower extremity edema. PE: VSS. GEN: NAD, AAOx3. Neck: No JVD, no HJR. Heart: Regular, normal S1, normal S2, 2/6 systolic ejection murmur heard best at the right second intercostal space. The lungs are clear bilateral, no rales, rhonchi, or wheeze. Abdomen soft, nontender, nondistended no rebound or guarding. Extremities: No clubbing, cyanosis, or edema. A/P: Agree with above PAC history, physical exam, assessment and plan. Repeat CBC in a.m. Continue oral anticoagulation with warfarin. No further cardiac testing or medication changes at this time. Gastroenterology input appreciated. Continue iron supplementation as previously ordered. Chente Beebe DO, FACC (Nicanor Beebe DO)
[2017-02-24 14:52] LABS: HEMATOCRIT 30.1 % (37-47)
--- NOTE | 2017-02-24 14:54 | Pharmacy Progress Note ---
Glycemic Control Intl Consult Date of Service February 24, 2017. Scope Glycemic Pharmacist consulted by Dr Terry on 02/24/17 for glycemic control and to write orders per [facility] inpatient glycemic control protocol. Objective Weight (Kilograms): 82.100 Accuchecks BSG (last 24hrs): Test 02/23/17 14:50 02/23/17 20:08 02/24/17 02:46 02/24/17 06:43 Random Glucose 57 mg/dl (70-99) 110 mg/dl (70-99) Bedside Glucose 154 mg/dl (70-90) 119 mg/dl (70-90) Test 02/24/17 11:12 Bedside Glucose 259 mg/dl (70-90) Laboratory Data (last 24hrs) Test 02/23/17 14:50 02/24/17 02:46 Anion Gap 5.0 mmol/L 5.0 mmol/L BUN/Creatinine Ratio 22.0 22.1 Blood Urea Nitrogen 12 mg/dl 10 mg/dl Creatinine 0.54 mg/dl 0.44 mg/dl Potassium Level 3.3 mmol/L 3.8 mmol/L Sodium Level 143 mmol/L 141 mmol/L White Blood Count 4.02 K/uL 3.89 K/uL Red Blood Count 2.93 M/uL Hemoglobin 7.3 g/dL Hematocrit 25.4 % Mean Corpuscular Volume 86.7 fL Mean Corpuscular Hemoglobin 24.9 pg Mean Corpuscular Hemoglobin Concent 28.7 g/dl Platelet Count 186 K/uL Mean Platelet Volume 9.3 fL Neutrophils (%) (Auto) 72.9 % Lymphocytes (%) (Auto) 14.4 % Monocytes (%) (Auto) 10.2 % Eosinophils (%) (Auto) 2.0 % Basophils (%) (Auto) 0.5 % Neutrophils # (Auto) 2.93 K/uL Lymphocytes # (Auto) 0.58 K/uL Monocytes # (Auto) 0.41 K/uL Eosinophils # (Auto) 0.08 K/uL Basophils # (Auto) 0.02 K/uL Recent Pertinent Medications Outpatient Anti-diabetic Regimen: * Lantus 40 units SQ QAM * Humalog 20 units SQ TIDM * Metformin 1gm PO BIDM * A1c = 7.7 % 07/26/16 -- this A1c is quite out-dated, but it is inappropriate to draw an A1c now, as pt rec'd transfusion yesterday Risk Factors for Insulin Resistance: * IVF: Lasix PO BID * Diet: Type 2 diabetic/AHA, mechanical soft Assessment & Plan ASSESSMENT: * ADA & AACE recommend a goal blood sugar range 140-180 mg/dl for the majority of critically ill & non-critically ill patients. However, more stringent targets may be selected in individual cases. 02/24/17 * Patient is a 61yo diabetic female admitted with GI bleed/symptomatic anemia, requiring transfusion(s). * Pharmacy glycemic consult service has managed patient during a past admission. * Patient was hypoglycemic (BSG 57) on admission, so no basal insulin was ordered. * Pre-lunch BSG was elevated (BSG 259), so will initiate Lantus at a reduced dose from her home regimen. Will adjust as needed. * Based on her home insulin use of ~100 units per day, expect that patient will require tightened Novolog parameters, but will re-evaluate tomorrow morning. Hesitant to be overly aggressive in light of recent hypoglycemia. PLAN FOR INPATIENT GLYCEMIC CONTROL: * Basal insulin with LANTUS 30 units SQ QAM * Correctional Insulin with NOVOLOG per scale ACHS or Q6hrs while NPO * Goal Range: Low 120 mg/dL - High 160 mg/dL * Correction Factor: 30 mg/dL/unit * Nutritional / Prandial insulin per carb ratio of 1 unit per 10 grams CHO consumed DISCHARGE PLANNING: * Current A1c unavailable, and unable to obtain d/t recent transfusion. * Expect that patient may resume home regimen on discharge. If hypoglycemia is a frequent issue for patient, may need to consider decreasing Lantus dose. * Please note that the plan above was derived based on current level of insulin resistance and hospital stress. These recommendations are appropriate for inpatient admission only. Plan of care upon discharge will need to be reassessed to avoid potential outpatient hypo/hyperglycemia. Thank you.
[2017-02-24] MEDS ORDERED: WARFARIN SOD 6 MG TAB PO ONE (15:00)
[2017-02-24] MEDS: PANTOprazole INJ 40 MG in SYRINGE 0 ML IV SCH (20:30)
--- NOTE | 2017-02-24 21:58 | Medical Consult ---
Consultation Date of Consultation: February 24, 2017. Attending Physician: Juan Terry MD Reason for Consultation: anemia History of Present Illness 61 year old female with history of CAD, mechanical aortic valve, cirrhosis - [place], admitted with anemia. She states that she noticed increased fatigue recently and also had dyspnea on exertion. She denies any chest pain.She has left sided abdominal pain. Se denies any blood in stool but she says always appear dark. She has not noticed any changes recently. She has history of iron deficiency and receives iron infusions periodically. She has also received transfusions. She had CBC checked outpatient and had hemoglobin 7.7. She has received 2 units PRBCs and feels better now. She is on anticoagulation due to mechanical valve Past Medical/Surgical History Medical Problems: (1) Current use of skilled nursing anticoagulation Status: Acute (2) Symptomatic anemia Status: Acute (3) Upper gastrointestinal bleed Status: Acute Social History Problems: (1) Mechanical heart valve present Status: Acute Family History FH: CAD (coronary artery disease) BROTHER SISTER Social History Smoking Status: Never Smoker Alcohol Use: none Drug Use: none Marital Status: Occupation Status: retired Allergies Coded Allergies: Erythromycin (Verified Allergy, Mild, 02/23/17) Tetracycline (Verified Allergy, Mild, 02/23/17) Ciprofloxacin (Verified Allergy, Unknown, `, 02/23/17) Hydrocodone (Verified Allergy, Unknown, `, 02/23/17) Sulfa Antibiotics (Verified Allergy, Unknown, Unknown rxn, 02/23/17) Current Inpatient Medications Current Inpatient Medications Medications (Trade) Dose Ordered Sig/[place] Route Start Time Stop Time Status Last Admin Dose Admin Acetaminophen (Tylenol Tab) 650 mg Q4H PRN PO 02/23/17 16:15 03/25/17 16:14 Ondansetron HCl (Zofran Inj) 4 mg Q6H PRN IV 02/23/17 16:15 03/25/17 16:14 Insulin Aspart (novoLOG ASPART) SLIDING SCALE If C... ACHS SC 02/23/17 21:00 03/25/17 20:59 02/24/17 17:15 7 UNITS Glucose (Glucose 40% Gel) 15-30 GRAMS 15 GRAMS... UD PRN PO 02/23/17 16:30 03/25/17 16:29 Glucose (Glucose Chew Tab) 4-8 Tablets 4 Tabl... UD PRN PO 02/23/17 16:30 03/25/17 16:29 Dextrose (Dextrose 50% 50ML Syringe) 25-50ML OF 50% DW IV FOR... UD PRN IV 02/23/17 16:30 03/25/17 16:29 Glucagon (Glucagon Inj) 1 mg UD PRN SQ 02/23/17 16:30 03/25/17 16:29 Albuterol (Ventolin Hfa Inhaler) 2 puffs Q4H PRN INH 02/23/17 16:45 03/25/17 16:44 Aspirin (Ecotrin Tab) 81 mg DAILY PO 02/24/17 09:00 03/26/17 08:59 02/24/17 08:30 81 MG Atorvastatin Calcium (Lipitor Tab) 80 mg DAILY PO 02/24/17 09:00 03/26/17 08:59 02/24/17 08:30 80 MG Buspirone HCl (Buspar Tab) 5 mg BID PRN PO 02/23/17 16:45 03/25/17 16:44 02/24/17 20:37 5 MG Fluticasone Propionate (Flonase Nasal [place]) 2 sprays DAILY PRN BENITO 02/23/17 16:45 03/25/17 16:44 Folic Acid (Folvite Tab) 2 mg DAILY PO 02/24/17 09:00 03/26/17 08:59 02/24/17 08:31 2 MG Furosemide (Lasix Tab) 40 mg BID17 PO 02/24/17 09:00 03/26/17 08:59 02/24/17 17:13 40 MG Albuterol/ Ipratropium (Combivent Respimat Inh) 2 puffs BID PRN INH 02/23/17 16:45 03/25/17 16:44 Albuterol/ Ipratropium (Duoneb) 3 ml QIDR PRN INH 02/23/17 16:45 03/25/17 16:44 Lisinopril (Zestril Tab) 5 mg QAM PO 02/24/17 09:00 03/26/17 08:59 02/24/17 08:32 5 MG Metoprolol Tartrate (Lopressor Tab) 25 mg BID PO 02/23/17 21:00 03/25/17 20:59 02/24/17 20:32 25 MG Nitroglycerin (Nitrostat Tab) 0.4 mg UD PRN UT 02/23/17 16:45 03/25/17 16:44 Ondansetron HCl (Zofran Tab) 4 mg Q6 PRN PO 02/23/17 16:45 03/25/17 16:44 Potassium Chloride (Klor-Con M10) 20 meq QAM PO 02/24/17 09:00 03/26/17 08:59 02/24/17 08:33 20 MEQ Tramadol HCl (Ultram Tab) 50 mg Q12 PO 02/23/17 21:00 03/25/17 20:59 02/24/17 20:38 50 MG Venlafaxine HCl (effeXOR EXTENDED REL CAP) 150 mg QAM PO 02/24/17 09:00 03/26/17 08:59 02/24/17 08:32 150 MG Cholecalciferol (Vitamin D Tab) 2,000 inter.unit DAILY PO 02/24/17 09:00 03/26/17 08:59 02/24/17 08:31 2,000 INTER.UNIT Potassium Chloride (Klor-Con M10) 10 meq QPM PO 02/23/17 21:00 03/25/17 20:59 02/24/17 20:32 10 MEQ Miscellaneous Information 1 ea 1 ea UD PRN N/A 02/24/17 12:19 03/26/17 12:18 Pantoprazole Sodium/Syringe (Protonix Inj/ Syringe) 10 ml @ 5 mls/min BID@0900,2100 IV 02/24/17 21:00 03/26/17 20:59 02/24/17 20:30 5 MLS/MIN Insulin Glargine (Lantus Solostar Pen) 30 unit QAM SC 02/24/17 13:00 03/26/17 12:59 02/24/17 13:59 30 UNIT Review of Systems Constitutional: + fatigue (improved), No chills, No fever, No sweats, No weakness ENT: No sore throat Respiratory: + dyspnea on exertion (resolved since PRBC transfusion), No cough , No sputum, No wheezing Cardiovascular: No chest pain, No edema, No orthopnea Abdomen: No nausea, No vomiting Genitourinary - Female: No dysuria, No hematuria Hematologic / Lymphatic: No swollen lymph nodes Physical Exam Date Time Temp Pulse Resp B/P Pulse Ox O2 Delivery O2 Flow Rate FiO2 02/24/17 19:35 36.9 81 20 99/53 96 Room Air 02/24/17 16:00 99 Room Air 02/24/17 15:24 36.4 73 20 109/65 99 Room Air 02/24/17 12:00 Room Air 02/24/17 11:21 36.9 73 18 118/69 97 Room Air 02/24/17 08:00 Room Air 02/24/17 07:22 36.6 78 18 144/71 98 Room Air 02/24/17 04:01 36.7 73 20 97/48 99 Room Air 02/24/17 04:00 Room Air 02/24/17 00:00 Room Air 02/23/17 23:50 36.7 72 20 115/73 99 Room Air 02/23/17 22:45 36.0 70 16 107/67 100 02/23/17 21:45 36.8 71 16 124/76 97 General Appearance: WD/WN, no apparent distress Head: normocephalic, atraumatic Eyes: sclerae normal ENT: hearing grossly normal Neck: supple, no adenopathy Respiratory/Chest: lungs clear, normal breath sounds, no respiratory distress, no accessory muscle use Cardiovascular: regular rate, rhythm, no edema Abdomen/GI: normal bowel sounds, non tender, soft, no organomegaly Extremities/Musculoskelatal: no calf tenderness, no pedal edema Neurologic/Psych: alert, normal mood/affect, oriented x 3 Skin: warm/dry, no rash Lymphatic: no adenopathy Laboratory Results Last 24 Hours Test 02/24/17 00:39 02/24/17 02:46 02/24/17 06:43 02/24/17 09:10 Hemoglobin 8.7 g/dL 8.6 g/dL 8.5 g/dL Hematocrit 29.8 % 29.1 % 28.8 % White Blood Count 3.89 K/uL Red Blood Count 3.46 M/uL Mean Corpuscular Volume 84.1 fL Mean Corpuscular Hemoglobin 24.9 pg Mean Corpuscular Hemoglobin Concent 29.6 g/dl RDW Standard Deviation 56.2 fL RDW Coefficient of Variation 18.2 % Platelet Count 165 K/uL Mean Platelet Volume 9.8 fL Prothrombin Time 23.4 SECONDS Prothromb Time International Ratio 2.1 Sodium Level 141 mmol/L Potassium Level 3.8 mmol/L Chloride Level 109 mmol/L Carbon Dioxide Level 27 mmol/L Anion Gap 5.0 mmol/L Blood Urea Nitrogen 10 mg/dl Creatinine 0.44 mg/dl Est Creatinine Clear Calc Drug Dose 124.0 ml/min Estimated GFR () 124.5 Estimated GFR (Non- 107.4 BUN/Creatinine Ratio 22.1 Random Glucose 110 mg/dl Calcium Level 8.3 mg/dl Magnesium Level 1.9 mg/dl Bedside Glucose 119 mg/dl Test 02/24/17 11:12 02/24/17 11:58 02/24/17 14:45 02/24/17 16:15 Bedside Glucose 259 mg/dl 211 mg/dl Peripheral Blood Smear Path Consult Iron Level 31 mcg/dl Total Bilirubin 1.2 mg/dl Direct Bilirubin 0.4 mg/dl Lactate Dehydrogenase 262 U/L Hemoglobin 8.9 g/dL Hematocrit 30.1 % Test 02/24/17 20:19 Bedside Glucose 145 mg/dl Assessment & Plan 61 year old female admitted with anemia. She has mechanical aortic valve on warfarin. She has required iron supplementation in the past for iron deficiency. Last EGD in 12/2016 Anemia improved s/p 2 units PRBC transfusion Recommend rule out blood loss Anemia may be due to iron deficiency, recommend rule out blood loss and source Also since she has a mechanical valve she may also have low grade hemolysis from shear stress Recommend follow up with Card. Recommend rule out blood loss and GI follow up Recommend monitor her CBC weekly outpatient as well and close monitoring of her INRs with the coumadin clinic Transfuse as needed for symptomatic anemia Check direct mazin, B12 and folate spep and serum immunofixationt Follow up in the office upon discharge Discussed with Dr Terry
[2017-02-25 03:20] VITALS: BP 110/67; PULSE 73; TEMP 36.5; O2SAT 95
[2017-02-25 06:11] LABS: BASO % 0.5 %; BASO ABS # 0.02 K/uL (0-0.2); COMPLETE YES; EOS % 2.7 %; HEMATOCRIT 30.5 % (37-47); LYMPH % 26.2 %; LYMPH ABS # 0.97 K/uL (1.2-3.4); MEAN CELL VOLUME 84.7 fL (80-100); MEAN CORPUSCULAR HGB CONC 29.5 g/dl (32-36); MEAN PLATELET VOLUME 9.6 fL (7.4-10.4); MONO % 13.2 %; NEUT % 57.4 %; PLATELET COUNT 169 K/uL (130-400)
[2017-02-25 06:33] LABS: INR 1.3 (0.9-1.1); PROTHROMBIN TIME (PATIENT) 13.6 SECONDS (9.0-12.0)
[2017-02-25 06:48] LABS: BUN/CREATININE RATIO 17.4 (10-20); CALCIUM 8.3 mg/dl (8.5-10.1); CREATININE 0.52 mg/dl (0.60-1.20); POTASSIUM 3.8 mmol/L (3.5-5.1)
[2017-02-25 07:39] VITALS: BP 128/65; PULSE 71; TEMP 36.7; O2SAT 94
[2017-02-25] MEDS: ASPIRIN 81 MG ECTAB PO SCH (07:53)
[2017-02-25] MEDS: ATORVASTATIN 40 MG TAB PO SCH (07:54)
[2017-02-25] MEDS: FUROSEMIDE 40 MG TAB PO SCH (07:54)
[2017-02-25] MEDS: METOPROLOL TARTRATE 25 MG TAB PO SCH (07:54)
[2017-02-25] MEDS: VENLAFAXINE HCL XR 150 MG CAPXR PO SCH (07:54)
[2017-02-25] MEDS: LISINOPRIL 5 MG TAB PO SCH (07:54)
[2017-02-25] MEDS: POTASSIUM CHLORIDE 10 MEQ TABCR PO SCH (07:56)
[2017-02-25] MEDS: CHOLECALCIFEROL 1000 INTER.UNIT TAB PO SCH (07:56)
[2017-02-25] MEDS: TRAMADOL HCL 50 MG TAB PO SCH (07:59)
[2017-02-25] MEDS: INSULIN ASPART 100 UNITS/ML 3 ML PEN SC SCH ×2 (08:03→11:52)
[2017-02-25] MEDS: INSULIN GLARGINE SOLOSTAR 100 UNITS/ML 3 ML PEN SC SCH (08:04)
[2017-02-25] MEDS: PANTOprazole INJ 40 MG in SYRINGE 0 ML IV SCH (08:05)
[2017-02-25] MEDS ORDERED: ENOXAPARIN 1 MG/KG SQ SCH (10:45)
--- NOTE | 2017-02-25 11:20 | Cardiology Follow-Up ---
Subjective General Date of Service: February 25, 2017. Chief Complaint: anemia Pt evaluation today including: conversation w/ patient, physical exam, chart review, lab review, review of studies, conversation w/ medical cost consultant, review of inpatient medication list History of Present Illness Patient feeling well this Am. Hoping to go home. Denies evidence of occult bleeding. SOB improved. Denies chest pain. No sense of palpitations Anemia stable this AM. INR low despite receiving home dose of coumadin last night. Allergies Coded Allergies: Erythromycin (Verified Allergy, Mild, 02/23/17) Tetracycline (Verified Allergy, Mild, 02/23/17) Ciprofloxacin (Verified Allergy, Unknown, `, 02/23/17) Hydrocodone (Verified Allergy, Unknown, `, 02/23/17) Sulfa Antibiotics (Verified Allergy, Unknown, Unknown rxn, 02/23/17) Social History Smoking Status: Never Smoker Hx Tobacco Use In Past Year?: No Hx Alcohol Use - Type And Amou: No Hx Substance Use - Type And Am: No Problem List Medical Problems: (1) Current use of intermediate teacher anticoagulation Status: Acute (2) Symptomatic anemia Status: Acute (3) Upper gastrointestinal bleed Status: Acute Social History Problems: (1) Mechanical heart valve present Status: Acute Review of Systems Respiratory: No cough, No dyspnea at rest, No hemoptysis, No shortness of breath, No wheezing Cardiac: No PND, No chest pain, No edema, No orthopnea, No palpitations Physical Exam Vital Signs Last Vital Signs Documentation Date Time Temp Pulse Resp B/P Pulse Ox O2 Delivery O2 Flow Rate FiO2 02/25/17 08:00 Room Air 02/25/17 07:39 36.7 71 19 128/65 94 Physical Exam Constitutional: General Apperance: overweight Level of Distress: NAD Psychiatric: Mental Status: active & alert Orientation: to time, to place, to person Head: normocephalic Eyes: Pupils: PERRLA Neck: supple Lungs: Respiratory effort: no dyspnea Auscultation: no wheezing, no rales/crackles, no rhonchi Cardiovascular: Heart Auscultation: RRR, II/ DARRIUS Abdomen: Bowel Sounds: normal Inspection & Palpation: soft, non-distended Extremities: no cyanosis, no edema Assessment and Plan Assessment and Plan ASSESSMENT and PLAN: Markedly complex 61 year old female 1. Symptomatic anemia, symptoms improved after 2 units PRBC -H&H stable this AM wihtout evidence of gross bleeding. -coumadin and ASA resumed. -needs lovenox on discharge as INR 1.3. Patient agreeable. -schedule outpatient video scope with GI -continue PO iron and IV iron PRN -hematology f/u also recommended. 2. Mechanical aortic valve - must be maintained on anticoagulation therapy despite +FOBT and anemia status. 3. CAD s/p BMS in 05/2016 - on ASA. Plavix discontinued in 07/2016. -no specific anginal symptoms. Case discussed with Dr. Beebe. Stable cardiac signs/symptoms for discharge. Cardiology attending physician: Patient seen and examined at the bedside. Feels well today. She denies chest pain or unusual shortness of breath. No orthopnea, PND, lower extremity edema. PE: VSS. GEN: NAD, AAOx3. Neck: No JVD, no HJR. Heart: Regular, normal S1, normal S2, 2/6 systolic ejection murmur heard best at the right second intercostal space. The lungs are clear bilateral, no rales, rhonchi, or wheeze. Abdomen soft, nontender, nondistended no rebound or guarding. Extremities: No clubbing, cyanosis, or edema. A/P: Agree with above PA-C history, physical exam, assessment and plan. Subcutaneous lovenox bridging therapy ordered. Patient agreeable. No further cardiac testing or medication changes at this time. Will sign off. Please call with questions. Chente Beebe DO, [facility] Laboratory Results Last 24 Hours Test 02/24/17 11:58 02/24/17 14:45 02/24/17 16:15 02/24/17 20:19 Peripheral Blood Smear Path Consult Haptoglobin 71 MG/DL Iron Level 31 mcg/dl Total Bilirubin 1.2 mg/dl Direct Bilirubin 0.4 mg/dl Lactate Dehydrogenase 262 U/L Hemoglobin 8.9 g/dL Hematocrit 30.1 % Bedside Glucose 211 mg/dl 145 mg/dl Test 02/25/17 00:00 02/25/17 05:55 02/25/17 07:04 Stool Occult Blood NEGATIVE White Blood Count 3.70 K/uL Red Blood Count 3.60 M/uL Hemoglobin 9.0 g/dL Hematocrit 30.5 % Mean Corpuscular Volume 84.7 fL Mean Corpuscular Hemoglobin 25.0 pg Mean Corpuscular Hemoglobin Concent 29.5 g/dl Platelet Count 169 K/uL Mean Platelet Volume 9.6 fL Neutrophils (%) (Auto) 57.4 % Lymphocytes (%) (Auto) 26.2 % Monocytes (%) (Auto) 13.2 % Eosinophils (%) (Auto) 2.7 % Basophils (%) (Auto) 0.5 % Neutrophils # (Auto) 2.12 K/uL Lymphocytes # (Auto) 0.97 K/uL Monocytes # (Auto) 0.49 K/uL Eosinophils # (Auto) 0.10 K/uL Basophils # (Auto) 0.02 K/uL RDW Standard Deviation 56.8 fL RDW Coefficient of Variation 18.3 % Immature Granulocyte % (Auto) 0.0 % Immature Granulocyte # (Auto) 0.00 K/uL Prothrombin Time 13.6 SECONDS Prothromb Time International Ratio 1.3 Sodium Level 141 mmol/L Potassium Level 3.8 mmol/L Chloride Level 108 mmol/L Carbon Dioxide Level 27 mmol/L Anion Gap 6.0 mmol/L Blood Urea Nitrogen 9 mg/dl Creatinine 0.52 mg/dl Est Creatinine Clear Calc Drug Dose 105.1 ml/min Estimated GFR () 117.9 Estimated GFR (Non- 101.7 BUN/Creatinine Ratio 17.4 Random Glucose 142 mg/dl Calcium Level 8.3 mg/dl Iron Level 26 mcg/dl Total Iron Binding Capacity 338 mcg/dl Transferrin 267 mg/dl Transferrin % Saturation 7 % Vitamin B12 Level 380 pg/mL Folate > 24.00 ng/mL Bedside Glucose 151 mg/dl
[2017-02-25] MEDS ORDERED: ENOXAPARIN 80 MG/0.8 ML SYR SQ SCH (12:00)
[2017-02-25 12:01] VITALS: BP 107/65; PULSE 79; TEMP 36.7; O2SAT 96
[2017-02-25] MEDS ORDERED: LVNIS80 SQ (13:55)
--- NOTE | 2017-02-25 14:01 | Discharge Instructions ---
Discharge Instructions Date of Service February 25, 2017. Admission Reason for Admission: Gi Bleed, Symptomatic Anemia Discharge Discharge Diagnosis / Problem: ANEMIA Discharge Goals Goal(s): Diagnostic testing, Therapeutic intervention Activity Recommendations Activity Limitations: as noted below (NO HEAVY EXERTION UNTIL RE-EVALUATED BY PRIMARY CARE PHYSICIAN) . Instructions / Follow-Up Instructions / Follow-Up RESUME USUAL WARFARIN DOSE AND USE LOVENOX UNTIL FURTHER INSTRUCTIONS BY THE COUMADIN/ANTICOAGULATION CLINIC. CALL PRIMARY CARE PHYSICIAN OR RETURN TO ER IMMEDIATELY IF WITH RECURRENCE OF SYMPTOMS, SHORTNESS OF BREATH, WEAKNESS, DIZZINESS, BLOOD IN THE STOOLS. FOLLOW UP WITH DR. MARTINEZ ON Tuesday02/28/17 AT 9:45 AM. FOLLOW UP WITH COUMADIN/ANTICOAGULATION CLINIC SCHEDULED (CLINIC TO CALL YOU REGARDING APPOINTMENT). FOLLOW UP WITH DAIRY HUSBANDMAN SCHEDULED. (CLINIC TO CALL YOU REGARDING APPOINTMENT). Current Hospital Diet Patient's current hospital diet: Diabetes Type 2 Diet, AHA Diet (Heart Healthy) Discharge Diet Recommended Diet: AHA Diet (Heart Healthy), Diabetes Type 2 Diet Pending Studies Studies pending at discharge: yes List of pending studies: REPEAT BLOOD WORK (CBC) ON FOLLOW UP WITH PRIMARY CARE PHSYCIAN; REPEAT INR C/O COUMADIN CLINIC. Medical Emergencies . Who to Call and When: Medical Emergencies: If at any time you feel your situation is an emergency, please call 911 immediately. . Non-Emergent Contact Non-Emergency issues call your: Primary Care Provider Call Non-Emergent contact if: you have a fever, you have any medication questions . . "Provider Documentation" section prepared by Juan Terry. . VTE Core Measure Inpt VTE Proph given/why not?: Contraindicated (SUSPECTED GI BLEED)
[2017-02-25] MEDS ORDERED: PANT1TAB48 PO (14:08)
[2017-02-25 14:09] VITALS: BP 107/65; PULSE 79; TEMP 36.7; O2SAT 96
--- NOTE | 2017-02-25 14:12 | Progress Note ---
Medicine Progress Note Date & Time of Visit: February 25, 2017 at 14:02. Subjective patient seen sitting up in bed, comfortable no BM since admission, no abdominal pain/nausea/vomiting denies chest pain, dyspnea, dizziness, palpitations ambulating with no problems states she feels much better overall states she is ready and would like to be discharged today Objective Last 8 Hrs Date Time Temp Pulse Resp B/P Pulse Ox O2 Delivery O2 Flow Rate FiO2 02/25/17 12:01 36.7 79 18 107/65 96 Room Air 02/25/17 12:00 Room Air 02/25/17 08:00 Room Air 02/25/17 07:39 36.7 71 19 128/65 94 Room Air Physical Exam: General- oriented x 3, not in distress, speaks in sentences with no effort Eyes- anicteric Neck- supple, no JV Lungs- clear breath sounds b/l, no rales Heart- normal rate, regular rhythm; no murmurs Abdomen- normal bowel sounds, soft, nontender Extremities- no pretibial edema, no calf tenderness; peripheral pulses intact Neuro- alert, oriented x 3; no gross focal deficits Skin- warm & dry chin: (+) dry area with scabbing wound anterior neck: dry erythematous area Laboratory Results: Last 24 Hours Test 02/24/17 14:45 02/24/17 16:15 02/24/17 20:19 02/25/17 00:00 Hemoglobin 8.9 g/dL Hematocrit 30.1 % Bedside Glucose 211 mg/dl 145 mg/dl Stool Occult Blood NEGATIVE Test 02/25/17 05:55 02/25/17 07:04 02/25/17 11:13 White Blood Count 3.70 K/uL Red Blood Count 3.60 M/uL Hemoglobin 9.0 g/dL Hematocrit 30.5 % Mean Corpuscular Volume 84.7 fL Mean Corpuscular Hemoglobin 25.0 pg Mean Corpuscular Hemoglobin Concent 29.5 g/dl Platelet Count 169 K/uL Mean Platelet Volume 9.6 fL Neutrophils (%) (Auto) 57.4 % Lymphocytes (%) (Auto) 26.2 % Monocytes (%) (Auto) 13.2 % Eosinophils (%) (Auto) 2.7 % Basophils (%) (Auto) 0.5 % Neutrophils # (Auto) 2.12 K/uL Lymphocytes # (Auto) 0.97 K/uL Monocytes # (Auto) 0.49 K/uL Eosinophils # (Auto) 0.10 K/uL Basophils # (Auto) 0.02 K/uL RDW Standard Deviation 56.8 fL RDW Coefficient of Variation 18.3 % Immature Granulocyte % (Auto) 0.0 % Immature Granulocyte # (Auto) 0.00 K/uL Prothrombin Time 13.6 SECONDS Prothromb Time International Ratio 1.3 Sodium Level 141 mmol/L Potassium Level 3.8 mmol/L Chloride Level 108 mmol/L Carbon Dioxide Level 27 mmol/L Anion Gap 6.0 mmol/L Blood Urea Nitrogen 9 mg/dl Creatinine 0.52 mg/dl Est Creatinine Clear Calc Drug Dose 105.1 ml/min Estimated GFR () 117.9 Estimated GFR (Non- 101.7 BUN/Creatinine Ratio 17.4 Random Glucose 142 mg/dl Calcium Level 8.3 mg/dl Iron Level 26 mcg/dl Total Iron Binding Capacity 338 mcg/dl Transferrin 267 mg/dl Transferrin % Saturation 7 % Vitamin B12 Level 380 pg/mL Folate > 24.00 ng/mL Bedside Glucose 151 mg/dl 289 mg/dl Assessment & Plan 61 year old female with history of CAD, CABG, Stent; Mechanical Aortic Valve on Coumadin, FRACNE Cirrhosis, DM, HTN, HLD presenting with weakness. SYMPTOMATIC ANEMIA HISTORY OF IRON DEFICIENCY ANEMIA POSSIBLE HEMOLYSIS POSSIBLE UNDERLYING OCCULT GI BLEED -- Acute on chronic iron deficiency anemia in patient on Coumadin (INR 3.7) for mechanical AVR and aspirin for CAD s/p CABG and stent -- discharged last December 2016 with Hg 9 in January 2017, Hg decreased to 8 re-admitted with Hg 7.3 -- on IV iron and PO Iron as outpatient -- given 2 units pRBC Hg improved and remained stable around 9 periph smear: no schistocytes -- evaluated by GI Dr. Wasserman/EDILIA Mena recent EGD, Colonoscopy unrevealing recommend outpatient Video Capsule Endoscopy (to be arranged by GI) Protonix BID -- due to mechanical aortic valve, will need to continue anticoagulation and just monitor Hg closely as per Cardiology INR 3.7 on admission given VIt K 2.5mg IV INR 1.3 on discharge day discharge on Lovenox bridge + coumadin will inform coumadin clinic for ff up H/O AORTIC VALVE REPLACEMENT S/p mechanical aortic valve replacement 2003 due to mechanical aortic valve, will need to continue anticoagulation and just monitor Hg closely as per Cardiology CHRONIC CHF WITH PRESERVED EF Due to valvular disease -- euvolemic -- Continue PO Lasix 40 mg BID CORONARY ARTERY DISEASE S/p CABG x 1 in 2010 and stent x 2 in Jun 2016 Continue aspirin due to hx of stent Continue beta kal and statin DM TYPE 2 resume metformin, Lantus, Humalog HYPOKALEMIA repleted resolved ASTHMA Not in acute exacerbation Continue home inhalers/ nebs DEPRESSION/ANXIETY Continue Effexor and Buspar HYPERTENSION Continue lisinopril and metoprolol DYSLIPIDEMIA Continue statin DVT PROPHYLAXIS SCD's due to anemia, GIB CODE STATUS Full code DISPOSITION d/c home today ff up with PCP in 1 week ff up with Coumadin clinic and GI Clinic as scheduled. Current Inpatient Medications: Current Inpatient Medications Medications (Trade) Dose Ordered Sig/[place] Route Start Time Stop Time Status Last Admin Dose Admin Acetaminophen (Tylenol Tab) 650 mg Q4H PRN PO 02/23/17 16:15 03/25/17 16:14 Ondansetron HCl (Zofran Inj) 4 mg Q6H PRN IV 02/23/17 16:15 03/25/17 16:14 Insulin Aspart (novoLOG ASPART) SLIDING SCALE If C... ACHS SC 02/23/17 21:00 03/25/17 20:59 02/25/17 11:52 10 UNITS Glucose (Glucose 40% Gel) 15-30 GRAMS 15 GRAMS... UD PRN PO 02/23/17 16:30 03/25/17 16:29 Glucose (Glucose Chew Tab) 4-8 Tablets 4 Tabl... UD PRN PO 02/23/17 16:30 03/25/17 16:29 Dextrose (Dextrose 50% 50ML Syringe) 25-50ML OF 50% DW IV FOR... UD PRN IV 02/23/17 16:30 03/25/17 16:29 Glucagon (Glucagon Inj) 1 mg UD PRN SQ 02/23/17 16:30 03/25/17 16:29 Albuterol (Ventolin Hfa Inhaler) 2 puffs Q4H PRN INH 02/23/17 16:45 03/25/17 16:44 Aspirin (Ecotrin Tab) 81 mg DAILY PO 02/24/17 09:00 03/26/17 08:59 02/25/17 07:53 81 MG Atorvastatin Calcium (Lipitor Tab) 80 mg DAILY PO 02/24/17 09:00 03/26/17 08:59 02/25/17 07:54 80 MG Buspirone HCl (Buspar Tab) 5 mg BID PRN PO 02/23/17 16:45 03/25/17 16:44 02/25/17 07:53 5 MG Fluticasone Propionate (Flonase Nasal [place]) 2 sprays DAILY PRN BENITO 02/23/17 16:45 03/25/17 16:44 Folic Acid (Folvite Tab) 2 mg DAILY PO 02/24/17 09:00 03/26/17 08:59 02/25/17 07:55 2 MG Furosemide (Lasix Tab) 40 mg BID17 PO 02/24/17 09:00 03/26/17 08:59 02/25/17 07:54 40 MG Albuterol/ Ipratropium (Combivent Respimat Inh) 2 puffs BID PRN INH 02/23/17 16:45 03/25/17 16:44 Albuterol/ Ipratropium (Duoneb) 3 ml QIDR PRN INH 02/23/17 16:45 03/25/17 16:44 Lisinopril (Zestril Tab) 5 mg QAM PO 02/24/17 09:00 03/26/17 08:59 02/25/17 07:54 5 MG Metoprolol Tartrate (Lopressor Tab) 25 mg BID PO 02/23/17 21:00 03/25/17 20:59 02/25/17 07:54 25 MG Nitroglycerin (Nitrostat Tab) 0.4 mg UD PRN UT 02/23/17 16:45 03/25/17 16:44 Ondansetron HCl (Zofran Tab) 4 mg Q6 PRN PO 02/23/17 16:45 03/25/17 16:44 Potassium Chloride (Klor-Con M10) 20 meq QAM PO 02/24/17 09:00 03/26/17 08:59 02/25/17 07:56 20 MEQ Tramadol HCl (Ultram Tab) 50 mg Q12 PO 02/23/17 21:00 03/25/17 20:59 02/25/17 07:59 50 MG Venlafaxine HCl (effeXOR EXTENDED REL CAP) 150 mg QAM PO 02/24/17 09:00 03/26/17 08:59 02/25/17 07:54 150 MG Cholecalciferol (Vitamin D Tab) 2,000 inter.unit DAILY PO 02/24/17 09:00 03/26/17 08:59 02/25/17 07:56 2,000 INTER.UNIT Potassium Chloride (Klor-Con M10) 10 meq QPM PO 02/23/17 21:00 03/25/17 20:59 02/24/17 20:32 10 MEQ Miscellaneous Information 1 ea 1 ea UD PRN N/A 02/24/17 12:19 03/26/17 12:18 Pantoprazole Sodium/Syringe (Protonix Inj/ Syringe) 10 ml @ 5 mls/min BID@0900,2100 IV 02/24/17 21:00 03/26/17 20:59 02/25/17 08:05 5 MLS/MIN Insulin Glargine (Lantus Solostar Pen) 30 unit QAM SC 02/24/17 13:00 03/26/17 12:59 02/25/17 08:04 30 UNIT Enoxaparin Sodium (Lovenox Inj) 80 mg Q12 SQ 02/25/17 12:00 03/27/17 11:59 02/25/17 12:31 80 MG
--- NOTE | 2017-02-25 14:20 | Discharge Summary ---
Discharge Summary Date of Service February 25, 2017. Discharge Summary Admission Date: February 23, 2017 at 15:43 Discharge Date: February 25, 2017 Discharge Disposition: Home Principal Diagnosis: SYMPTOMATIC ANEMIA HISTORY OF IRON DEFICIENCY ANEMIA POSSIBLE HEMOLYSIS POSSIBLE UNDERLYING OCCULT GI BLEED Secondary Diagnoses/Problems: Please refer to hospital course below. Procedures: 2 units pRBC transfusion Consultations: GI Dr. Wasserman, Cardiology Dr. Beebe, Hematology Dr. Irving Pending Studies/Follow-Up: Monitor CBC weekly; Follow up with GI for Video Capsule Endoscopy; Please refer to hospital course below for further details. Medication Reconciliation New Medications: Pantoprazole (Protonix) 40 Mg Tab 40 MG PO BID for 30 Days, #60 TAB 1 Refill take 30 minutes before meal Enoxaparin (Lovenox) 80 Mg/0.8 Ml Inj 80 MG SQ Q12 for 10 Days, #20 UNIT 1 Refill further instructions per Anticoagulation/Coumadin Clinic Continued Medications: Albuterol Sulfate (Proventil Hfa) 108 Mcg/Act Aer 2 PUFFS PO Q4H PRN for SOB/Wheezing Aspirin (Aspirin Chewable) 81 Mg Chew 81 MG PO DAILY, TAB Atorvastatin (Lipitor) 80 Mg Tab 80 MG PO DAILY, TAB Buspirone HCl (Buspirone HCl) 5 Mg Tab 5 MG PO BID PRN for Anxiety Cholecalciferol (Vitamin D3) 2,000 Unit Cap 2000 UNIT PO DAILY, 3 Refills Fluticasone Propionate (Nasal) (Flonase Allergy Relief) 50 Mcg/Act Spr 2 SPRAYS BENITO DAILY PRN for Nasal Congestion Folic Acid (Folic Acid) 1 Mg Tab 2 MG PO DAILY Furosemide (Lasix) 40 Mg Tab 40 MG PO BID Insulin Glargine (Lantus) 100 Unit/Ml Inj 40 UNITS SC QAM, VIAL Insulin Lispro (Human) (Humalog) 100 Unit/Ml Inj 20 UNITS SQ TIDM Ipratropium-Albuterol (Combivent Respimat) 1 Aer Aer 2 PUFFS INH BID PRN for SOB/Wheezing, INH Ipratropium-Albuterol (Duoneb) 3 Ml Nebu 1 TREATMENT INH QID PRN for SOB/Wheezing, INHA Iron-Vitamin C (Vitron-C) 1 Tab Tab 1 TAB PO BID Lisinopril (Zestril) 5 Mg Tab 5 MG PO QAM Metformin Hcl (Glucophage) 1,000 Mg Tab 1000 MG PO BID Metoprolol Tartrate (Lopressor) (Lopressor) 25 Mg Tab 25 MG PO BID, 0 Refills Nitroglycerin (Nitrostat) 0.4 Mg Tab 0.4 MG UT UD PRN for Chest Pain, BTL Ondansetron Hcl (Zofran) 4 Mg Tab 4 MG PO Q6 PRN for Nausea Potassium Chloride (Micro-K Ext Rel) 10 Meq Capcr 20 MEQ PO QAM Potassium Chloride (K-Tabs) 10 Meq Tabcr 10 MEQ PO QPM Tramadol (Ultram) 50 Mg Tab 50 MG PO Q12, TAB Venlafaxine Hcl (Venlafaxine Hcl Er) 150 Mg Tab 150 MG PO QAM, 2 Refills Warfarin Sod (Coumadin) 6 Mg Tab 6 MG PO 5XWK for EXCEPT TUESDAY AND TUESDAY Warfarin Sodium (Coumadin) 4 Mg Tab 4 MG PO 2XWK TUESDAY AND TUESDAY ONLY Discontinued Medications: Omeprazole (Prilosec) 20 Mg Capcr 20 MG PO DAILY, CAP Admission Information HPI (per Admitting provider): This is a 61 year old female with PMH of CAD s/p CABG and stent placement, mechanical aortic valve replacement on Coumadin, IDDM type 2, HTN, dyslipidemia , hx of [place] cirrhosis, and other problems listed below who presents to the ED for abnormal outpatient labs. Patient was admitted to [facility] in 12/2016 for iron deficiency anemia requiring 2 units transfused and had EGD without any source of bleeding. Today patient was sent to ER by PCP for outpatient Hg of 7.7 drawn 2 days ago. Patient reports fatigue and increased WALLER. She reports possibly recent possible URI with night time cough and nasal congestion. She admits to black stool for past month. She has been receiving iron infusions and PO iron supplement. 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 No rectal pain. No bright red blood per rectum. She reports chronic intermittent L sided abdominal pain but is note experiencing it currently. She denies fever, sweats, dizziness, headache, vision change, chest pain, palpitations, dyspnea at rest, acid reflux, nausea, vomiting, urinary changes, edema, weight gain. Last colonoscopy in 07/2016 showed hyperplastic polyp. Physical Exam (per Admitting): General Appearance: no apparent distress, + obese, + pertinent finding ( pleasant alert 61 year old female) Head: normocephalic, atraumatic Eyes: normal inspection, PERRL, EOMI ENT: hearing grossly normal, pharynx normal Neck: no JVD, trachea midline Respiratory/Chest: lungs clear, normal breath sounds, no respiratory distress, no accessory muscle use Cardiovascular: regular rate, rhythm, + systolic murmur, + pertinent finding (mechanical valve sound) Abdomen/GI: normal bowel sounds, non tender, soft, + pertinent finding ( obese) Extremities/Musculoskelatal: normal inspection, no calf tenderness, no pedal edema Neurologic/Psych: alert, normal mood/affect, oriented x 3, + pertinent finding (no focal deficit on gross examination) Skin: warm/dry, + pallor, + pertinent finding (few healing superficial ulcerations on her left chest, left neck, and chin) Hospital Course 61 year old female with history of CAD, CABG, Stent; Mechanical Aortic Valve on Coumadin, [place] Cirrhosis, DM, HTN, HLD presenting with weakness. SYMPTOMATIC ANEMIA HISTORY OF IRON DEFICIENCY ANEMIA POSSIBLE HEMOLYSIS POSSIBLE UNDERLYING OCCULT GI BLEED -- Acute on chronic iron deficiency anemia in patient on Coumadin (INR 3.7) for mechanical AVR and aspirin for CAD s/p CABG and stent -- discharged last December 2016 with Hg 9 in January 2017, Hg decreased to 8 re-admitted with Hg 7.3 -- on IV iron and PO Iron as outpatient -- given 2 units pRBC Hg improved and remained stable around 9 periph smear: no schistocytes -- evaluated by GI Dr. Wasserman/EDILIA Mena recent EGD, Colonoscopy unrevealing recommend outpatient Video Capsule Endoscopy (to be arranged by GI) Protonix BID -- due to mechanical aortic valve, will need to continue anticoagulation and just monitor Hg closely as per Cardiology INR 3.7 on admission given VIt K 2.5mg IV INR 1.3 on discharge day discharge on Lovenox bridge + coumadin will inform coumadin clinic for ff up H/O AORTIC VALVE REPLACEMENT S/p mechanical aortic valve replacement 2003 due to mechanical aortic valve, will need to continue anticoagulation and just monitor Hg closely as per Cardiology CHRONIC CHF WITH PRESERVED EF Due to valvular disease -- euvolemic -- Continue PO Lasix 40 mg BID CORONARY ARTERY DISEASE S/p CABG x 1 in 2010 and stent x 2 in Jun 2016 Continue aspirin due to hx of stent Continue beta kal and statin DM TYPE 2 resume metformin, Lantus, Humalog HYPOKALEMIA repleted resolved ASTHMA Not in acute exacerbation Continue home inhalers/ nebs DEPRESSION/ANXIETY Continue Effexor and Buspar HYPERTENSION Continue lisinopril and metoprolol DYSLIPIDEMIA Continue statin DVT PROPHYLAXIS SCD's due to anemia, GIB CODE STATUS Full code DISPOSITION d/c home today ff up with PCP in 1 week ff up with Coumadin clinic and GI Clinic as scheduled. Total time spent on discharge = 40 minutes This includes examination of the patient, discharge planning, medication reconciliation, and communication with other providers. Discharge Instructions Discharge Instructions Date of Service February 25, 2017. Admission Reason for Admission: Gi Bleed, Symptomatic Anemia Discharge Discharge Diagnosis / Problem: ANEMIA Discharge Goals Goal(s): Diagnostic testing, Therapeutic intervention Activity Recommendations Activity Limitations: as noted below (NO HEAVY EXERTION UNTIL RE-EVALUATED BY PRIMARY CARE PHYSICIAN) . Instructions / Follow-Up Instructions / Follow-Up RESUME USUAL WARFARIN DOSE AND USE LOVENOX UNTIL FURTHER INSTRUCTIONS BY THE COUMADIN/ANTICOAGULATION CLINIC. CALL PRIMARY CARE PHYSICIAN OR RETURN TO ER IMMEDIATELY IF WITH RECURRENCE OF SYMPTOMS, SHORTNESS OF BREATH, WEAKNESS, DIZZINESS, BLOOD IN THE STOOLS. FOLLOW UP WITH DR. MARTINEZ ON Tuesday02/28/17 AT 9:45 AM. FOLLOW UP WITH COUMADIN/ANTICOAGULATION CLINIC SCHEDULED (CLINIC TO CALL YOU REGARDING APPOINTMENT). FOLLOW UP WITH [facility] SCHEDULED. (CLINIC TO CALL YOU REGARDING APPOINTMENT). Current Hospital Diet Patient's current hospital diet: Diabetes Type 2 Diet, AHA Diet (Heart Healthy) Discharge Diet Recommended Diet: AHA Diet (Heart Healthy), Diabetes Type 2 Diet Pending Studies Studies pending at discharge: yes List of pending studies: REPEAT BLOOD WORK (CBC) ON FOLLOW UP WITH PRIMARY CARE PHSYCIAN; REPEAT INR C/O COUMADIN CLINIC. Medical Emergencies . Who to Call and When: Medical Emergencies: If at any time you feel your situation is an emergency, please call 911 immediately. . Non-Emergent Contact Non-Emergency issues call your: Primary Care Provider Call Non-Emergent contact if: you have a fever, you have any medication questions . . "Provider Documentation" section prepared by Juan Terry. . VTE Core Measure Inpt VTE Proph given/why not?: Contraindicated (SUSPECTED GI BLEED)
[2017-02-26] MEDS ORDERED: INSULIN GLARGINE SOLOSTAR 100 UNITS/ML 3 ML PEN SC SCH (09:00)
[2017-02-28 17:03] LABS: GAMMA GLOBULIN 1.2 G/DL (0.8-1.7)
[2017-04-01] MEDS ORDERED: PANT40TA PO (11:37)
[2017-06-07] MEDS ORDERED: LUPIN PO (11:11)
[2017-08-14] MEDS ORDERED: CRFUDL PO (07:46)
== END 2017-02-25 14:36 | disposition home or self-care (01) | DRG 812 ==
LOC: ENRESERVTM → ENRESERVDT → C.EDB 14:28 → C.2T 15:43
PROVIDERS: ADMIT Internal Medicine; ATTEND Internal Medicine
DX: D50.9 Iron deficiency anemia, unspecified (principal); I50.9 Heart failure, unspecified; K21.9 Gastro-esophageal reflux disease without esophagitis; E78.5 Hyperlipidemia, unspecified; I10 Essential (primary) hypertension; K75.81 Nonalcoholic steatohepatitis (NASH); E87.6 Hypokalemia; E11.649 Type 2 diabetes mellitus with hypoglycemia without coma; F32.9 Major depressive disorder, single episode, unspecified; J45.909 Unspecified asthma, uncomplicated; F41.9 Anxiety disorder, unspecified; Z79.01 Long term (current) use of anticoagulants; Z79.4 Long term (current) use of insulin; Z79.82 Long term (current) use of aspirin; Z79.899 Other long term (current) drug therapy; Z79.84 Long term (current) use of oral hypoglycemic drugs; Z95.2 Presence of prosthetic heart valve; Z95.1 Presence of aortocoronary bypass graft; Z95.5 Presence of coronary angioplasty implant and graft

== ENCOUNTER 2017-04-08 15:49 | Inpatient (IN) | payer OTHER, BC ==
[~2017-04-08] VITALS: Ht 152.4 cm; Wt 81.8 kg
[2017-04-08] VITALS (8 sets, daily range): BP systolic 102–120; BP diastolic 46–82; PULSE 68–81; TEMP 36.4–36.9; O2SAT 95–99; Ht 152.4 cm; Wt 81.8 kg
[~2017-04-08 15:49] MED LIST changes: +ASPCH81X PO; -ASPI81TA28 PO; -DIPH-437 PO; -FLVHFA110 INH; +IPRASOL4 INH; +MCRK/10 PO; +PANT40TA PO; -PRLSR20 PO
[2017-04-08 16:39] LABS: BASO % 0.5 %; BASO ABS # 0.02 K/uL (0-0.2); EOS % 1.9 %; HEMATOCRIT 24.4 % (37-47); IG% 0.3 %; LYMPH % 22.9 %; LYMPH ABS # 0.85 K/uL (1.2-3.4); MEAN CELL VOLUME 86.2 fL (80-100); MEAN CORPUSCULAR HEMOGLOBIN 25.4 pg (25-34); MEAN CORPUSCULAR HGB CONC 29.5 g/dl (32-36); MEAN PLATELET VOLUME 10.4 fL (7.4-10.4); MONO % 14.6 %; NEUT % 59.8 %; PLATELET COUNT 236 K/uL (130-400); RED BLOOD COUNT 2.83 M/uL (4.2-5.4); WHITE BLOOD COUNT 3.71 K/uL (4.8-10.8)
[2017-04-08 17:08] LABS: ISTAT CREATININE 0.6 mg/dl (0.6-1.3); ISTAT HEMOGLOBIN 8.5 g/dl (12.0-16.0); ISTAT IONIZED CALCIUM 1.23 mmol/l (1.12-1.32)
[2017-04-08 17:14] LABS: BLOOD UREA NITROGEN 13 mg/dl (7-18); BUN/CREATININE RATIO 21.8 (10-20); CALCIUM 9.1 mg/dl (8.5-10.1); CARBON DIOXIDE 25 mmol/L (21-32); CHLORIDE 108 mmol/L (98-107); CREATININE 0.61 mg/dl (0.60-1.20); GLUCOSE 75 mg/dl (70-99); SODIUM 141 mmol/L (136-145)
[2017-04-08 17:17] LABS: COMPLETE YES; OVALOCYTES 1+; POLYCHROMASIA 1+; VACUOLIZATION 1+
[2017-04-08 17:49] LABS: INR 1.9 (0.9-1.1); PARTIAL THROMBOPLASTIN RATIO 1.2; PROTHROMBIN TIME (PATIENT) 20.6 SECONDS (9.0-12.0)
[2017-04-08] MEDS ORDERED: ACETAMINOPHEN 325 MG TAB PO PRN (18:00)
[2017-04-08] MEDS ORDERED: ONDANSETRON INJ 2 MG/ML 2 ML VIAL IV PRN (18:00)
[2017-04-08] MEDS ORDERED: DEXTROSE 50% 50 ML SYR IV PRN (18:30)
[2017-04-08] MEDS ORDERED: ONDANSETRON 4 MG TAB PO PRN (18:30)
[2017-04-08] MEDS ORDERED: GLUCAGON FOR INJ 1 MG VIAL SQ PRN (18:30)
[2017-04-08] MEDS ORDERED: PANTOprazole INJ 40 MG in SYRINGE 0 ML IV ONE (18:30)
[2017-04-08] MEDS ORDERED: NITROGLYCERIN 0.4 MG SL PER TAB CHARGE UT PRN (18:30)
[2017-04-08] MEDS ORDERED: GLUCOSE 10 TABS/TUBE PO PRN (18:30)
[2017-04-08] MEDS ORDERED: GLUCOSE 40% GEL 15 GM TUBE PO PRN (18:30)
[2017-04-08] MEDS ORDERED: FLUTICASONE PROPIONATE NA SPR 16 GM BTL NAE PRN (18:30)
[2017-04-08] MEDS ORDERED: TRAMADOL HCL 50 MG TAB PO PRN (18:30)
[2017-04-08] MEDS ORDERED: ALBUT/IPRATROP 3MG/0.5MG NEB 3 ML VIAL INH PRN (18:30)
[2017-04-08] MEDS ORDERED: FUROSEMIDE 40 MG TAB PO SCH (20:30)
[2017-04-08] MEDS: IPRATROPIUM BROMIDE/ALBUTEROL respimat INH INH SCH (20:34)
[2017-04-08] MEDS: ATORVASTATIN 40 MG TAB PO SCH (20:37)
[2017-04-08] MEDS: WARFARIN SOD 6 MG TAB PO SCH (20:37)
[2017-04-08] MEDS: ASPIRIN 81 MG ECTAB PO SCH ×2 (20:38→20:42)
[2017-04-08] MEDS: POTASSIUM CHLORIDE 10 MEQ TABCR PO SCH (20:38)
[2017-04-08] MEDS: INSULIN ASPART 100 UNITS/ML 3 ML PEN SC SCH (20:39)
[2017-04-08] MEDS: METOPROLOL TARTRATE 25 MG TAB PO SCH (20:39)
[2017-04-08] MEDS: INSULIN GLARGINE SOLOSTAR 100 UNITS/ML 3 ML PEN SC SCH (20:40)
--- NOTE | 2017-04-08 20:48 | History and Physical ---
History & Physical Date & Time of Service: Apr 08, 2017 at 18:32 Chief Complaint: Low Blood Levels- Physician Referred Primary Care Physician: Luis Melo D.O. History of Present Illness Source: patient, clinic records, hospital records This is a 61 year old female with PMH of CAD s/p CABG and stent, mechanical aortic valve on Coumadin, DM type 2, HTN, dyslipidemia, hx of [place] cirrhosis, and other problems listed below who was sent to the ED for abnormal outpatient labs. Has chronic iron deficiency anemia treated with IV iron (last infusion ) and PO iron and blood (last tranfused 1 unit on 04/01) as outpatient. Hg was running in low 7's for past month then decreased to 6.7 yesterday. Had negative colonoscopy July 2016. Had negative EGD in December 2016. Recently hospitalized February 2017 for symptomatic anemia requiring 2 units pRBC. Seen by GI. Seen by cardiology. Anticoagulation was continued. Had outpatient video capsule endoscopy after discharge which was negative. Patient admits to fatigue and dizziness upon bending forward. She denies any jamie GI bleeding symptoms- no hematemesis, hematochezia, melena. No other abnormal bleeding including epistaxis, gum bleeding, hematuria. No change in chronic cough with clear sputum. Denies fever, chills, chest pain, SOB, abdominal pain, reflux, nausea, vomiting, diarrhea, constipation, dysuria, frequency, edema. In the ER patient' s Hg was 7.2 and rectal exam showed dark heme positive stool. Past Medical/Surgical History Medical Problems: (1) ASCVD (arteriosclerotic cardiovascular disease) Status: Chronic (2) Asthma Status: Chronic (3) Cirrhosis Status: Chronic (4) Depression Status: Chronic (5) DM type 2 (diabetes mellitus, type 2) Status: Chronic (6) Dyslipidemia Status: Chronic (7) GERD (gastroesophageal reflux disease) Status: Chronic (8) VIDHI (iron deficiency anemia) Status: Chronic Surgical Problems: (1) H/O aortic valve replacement Status: Chronic (2) H/O pericardiectomy Status: Chronic (3) H/O ventral hernia repair Status: Chronic (4) History of incisional hernia repair Status: Chronic (5) Hx of cholecystectomy Status: Chronic (6) Hx of tonsillectomy Status: Chronic (7) S/P angioplasty with stent Status: Chronic Family History FH: CAD (coronary artery disease) BROTHER SISTER Social History Smoking Status: Never Smoker Drug Use: none Marital Status: Housing status: lives with significant other Occupational Status: retired Immunizations History of Influenza Vaccine: Yes History of Tetanus Vaccine?: Yes History of Pneumococcal: Yes History of Hepatitis B Vaccine: No Multi-Drug Resistant Organisms History of MDRO: No Allergies Coded Allergies: Erythromycin (Verified Allergy, Mild, 04/01/17) Tetracycline (Verified Allergy, Mild, 04/01/17) Ciprofloxacin (Verified Allergy, Unknown, `, 04/01/17) Hydrocodone (Verified Allergy, Unknown, `, 04/01/17) Sulfa Antibiotics (Verified Allergy, Unknown, Unknown rxn, 04/01/17) Home Medications Scheduled Aspirin (Aspirin Chewable), 81 MG PO HS Atorvastatin (Lipitor), 80 MG PO HS Cholecalciferol (Vitamin D3), 2,000 UNIT PO DAILY Folic Acid (Folic Acid), 2 MG PO DAILY Furosemide (Lasix), 40 MG PO BID Insulin Glargine (Lantus), 40 UNITS SC HS Insulin Lispro (Human) (Humalog), 20 UNITS SQ TIDM Ipratropium-Albuterol (Combivent Respimat), 2 PUFFS INH BID Iron-Vitamin C (Vitron-C), 1 TAB PO BID Lisinopril (Zestril), 2.5 MG PO QAM Metformin Hcl (Glucophage), 1,000 MG PO BID Metoprolol Tartrate (Lopressor) (Lopressor), 25 MG PO BID Pantoprazole (Protonix), 40 MG PO BID Potassium Chloride (Micro-K Ext Rel), 20 MEQ PO QAM Potassium Chloride (K-Tabs), 10 MEQ PO QPM Venlafaxine Hcl (Venlafaxine Hcl Er), 150 MG PO QAM Warfarin Sod (Coumadin), 6 MG PO 5XWK Warfarin Sodium (Coumadin), 4 MG PO 2XWK Scheduled PRN Buspirone HCl (Buspirone HCl), 5 MG PO BID PRN for Anxiety Fluticasone Propionate (Nasal) (Flonase Allergy Relief), 2 SPRAYS BENITO DAILY PRN for Nasal Congestion Ipratropium-Albuterol (Duoneb), 1 TREATMENT INH QID PRN for SOB/Wheezing Nitroglycerin (Nitrostat), 0.4 MG UT UD PRN for Chest Pain Ondansetron Hcl (Zofran), 4 MG PO Q6 PRN for Nausea Tramadol (Ultram), 50 MG PO Q12 PRN for Pain Review of Systems Ten systems reviewed and negative except as noted in HPI. Physical Exam Vital Signs Date Time Temp Pulse Resp B/P (MAP) Pulse Ox O2 Delivery O2 Flow Rate FiO2 04/08/17 16:38 80 04/08/17 16:35 83 21 103/56 98 Room Air 04/08/17 15:58 36.8 78 18 89/54 98 Room Air General Appearance: no apparent distress, + obese, + pertinent finding ( pleasant alert 61 year old female, no distress) Head: normocephalic, atraumatic Eyes: normal inspection, PERRL, EOMI, sclerae normal ENT: hearing grossly normal, pharynx normal Neck: supple, trachea midline Respiratory/Chest: lungs clear, normal breath sounds, no respiratory distress, no accessory muscle use Cardiovascular: regular rate, rhythm, no JVD, + pertinent finding (mechanical valve sound) Abdomen/GI: normal bowel sounds, non tender, soft Extremities/Musculoskelatal: no calf tenderness, no pedal edema Neurologic/Psych: alert, normal mood/affect, oriented x 3, + pertinent finding (no focal deficit on gross examination) Skin: warm/dry, + pallor Diagnostics Laboratory Results Results Past 24 Hours Test 04/08/17 16:24 04/08/17 16:39 04/08/17 17:21 Range/Units White Blood Count 3.71 4.8-10.8 K/uL Red Blood Count 2.83 4.2-5.4 M/uL Hemoglobin 7.2 12.0-16.0 g/dL Hematocrit 24.4 37-47 % Mean Corpuscular Volume 86.2 80-100 fL Mean Corpuscular Hemoglobin 25.4 25-34 pg Mean Corpuscular Hemoglobin Concent 29.5 32-36 g/dl Platelet Count 236 130-400 K/uL Mean Platelet Volume 10.4 7.4-10.4 fL Neutrophils (%) (Auto) 59.8 % Lymphocytes (%) (Auto) 22.9 % Monocytes (%) (Auto) 14.6 % Eosinophils (%) (Auto) 1.9 % Basophils (%) (Auto) 0.5 % Neutrophils # (Auto) 2.22 1.4-6.5 K/uL Lymphocytes # (Auto) 0.85 1.2-3.4 K/uL Monocytes # (Auto) 0.54 0.11-0.59 K/uL Eosinophils # (Auto) 0.07 0-0.5 K/uL Basophils # (Auto) 0.02 0-0.2 K/uL RDW Standard Deviation 63.3 36.4-46.3 fL RDW Coefficient of Variation 20.2 11.5-14.5 % Immature Granulocyte % (Auto) 0.3 % Immature Granulocyte # (Auto) 0.01 0.00-0.02 K/uL Nucleated RBC Absolute Count (auto) 0.03 0-0 K/uL Nucleated Red Blood Cells % 0.8 % Toxic Vacuolation 1+ Polychromasia 1+ Ovalocytes 1+ Sodium Level 141 136-145 mmol/L Potassium Level 3.9 3.5-5.1 mmol/L Chloride Level 108 98-107 mmol/L Carbon Dioxide Level 25 21-32 mmol/L Anion Gap 8.0 23.0 16-25 mmol/L Blood Urea Nitrogen 13 7-18 mg/dl Creatinine 0.61 0.60-1.20 mg/dl Est Creatinine Clear Calc Drug Dose 90.0 ml/min Estimated GFR () 111.8 Estimated GFR (Non- 96.5 BUN/Creatinine Ratio 21.8 10-20 Random Glucose 75 70-99 mg/dl Calcium Level 9.1 8.5-10.1 mg/dl Troponin I < 0.015 0-0.045 ng/ml Bedside Hemoglobin 8.5 12.0-16.0 g/dl Bedside Hematocrit 25 37-47 % Bedside Sodium 141 135-144 mEq/L Bedside Potassium 4.6 3.3-5.0 mEq/L Bedside Chloride 102 101-112 mEq/L Bedside Total CO2 22 24-31 mEq/l Bedside Blood Urea Nitrogen 18 7-18 mg/dl Bedside Creatinine 0.6 0.6-1.3 mg/dl Bedside Glucose (other) 78 70-99 mg/dl Bedside Ionized Calcium (Eladio) 1.23 1.12-1.32 mmol/l Prothrombin Time 20.6 9.0-12.0 SECONDS Prothromb Time International Ratio 1.9 0.9-1.1 Activated Partial Thromboplast Time 31.7 21.0-31.0 SECONDS Partial Thromboplastin Ratio 1.2 EKG NSR, LAD, Poor R wave progression, consider anterior KS vs. lead placement vs. LVH, nonspecific ST and T wave abnormality, when compared to prior EKG nonspecific T wave abnormality improved in lateral leads, as per cardiology read , also reviewed by me Impression Assessment and Plan SYMPTOMATIC ANEMIA Underlying iron deficiency anemia in patient on Coumadin (INR 1.9) for mechanical AVR and aspirin for CAD s/p CABG and stent Treated with IV iron (last infusion 03/31), PO iron, and blood (last transfused 1 unit on 04/01) Hg was running low 7's for last month, decreased to 6.7 on 04/07, now 7.2 in ER Presented mildly hypotensive- SBP of 89 -> improved to 100s Stool was dark/ heme positive on ER provider's exam Possible slow occult GI bleed Last colonoscopy 07/2016- hyperplastic polyp; last EGD 12/2016- normal S/p video capsule endoscopy- negative Transfuse 2 units pRBC with 40 mg PO Lasix in between (hold for SBP <100) Recheck H/H at midnight IV Protonix BID Clear liquid diet Continue Coumadin due to mechanical aortic valve and ASA due to stents Jun 2016 - will be discussed with cardiology in AM Consult GI- discussed w/ Case, no plan for endoscopy at this time EPISODIC HYPOTENSION HX HYPERTENSION Presented of initial SBP 89 -> improved to 100s Hold lisinopril Continue metoprolol and Lasix with parameters H/O AORTIC VALVE REPLACEMENT S/p mechanical aortic valve replacement 2003 INR = 1.8; continue Coumadin CHRONIC CHF WITH PRESERVED EF Due to valvular disease Euvolemic Will give 40 mg PO Lasix between transfusions (hold for SBP <100) RN to monitor for any volume overload Then continue PO Lasix 40 mg BID CORONARY ARTERY DISEASE S/p CABG x 1 in 2010 and stent x 2 in Jun 2016 Stable; no angina Continue aspirin due to history of stent Continue beta kal and statin DM TYPE 2 Hold metformin Continue Lantus NovoLog sliding scale coverage ASTHMA Not in acute exacerbation Continue home inhalers/ nebs DEPRESSION/ANXIETY Continue Effexor and Buspar DYSLIPIDEMIA Continue statin DVT PROPHYLAXIS On Coumadin FULL CODE DISPOSITION Admit to telemetry Follows with Dr. Melo for primary care Patient seen in collaboration with Dr. Ferrer. Please see his addendum. VTE Prophylaxis VTE Risk Assessment Done? Y/N: Yes Risk Level: Moderate
[2017-04-08] MEDS ORDERED: PANTOprazole SOD 40 MG TAB PO SCH (21:00)
[2017-04-08] MEDS: PANTOprazole INJ 40 MG in SYRINGE 0 ML IV SCH (22:04)
[2017-04-08] MEDS: FUROSEMIDE 40 MG TAB PO SCH (23:01)
[2017-04-09] VITALS (12 sets, daily range): BP systolic 99–141; BP diastolic 50–74; PULSE 66–78; TEMP 36.5–36.9; O2SAT 95–100
[2017-04-09 03:25] LABS: HEMATOCRIT 28.3 % (37-47); MEAN CORPUSCULAR HEMOGLOBIN 26.7 pg (25-34); MEAN CORPUSCULAR HGB CONC 31.4 g/dl (32-36); MEAN PLATELET VOLUME 9.8 fL (7.4-10.4); PLATELET COUNT 206 K/uL (130-400); RED BLOOD COUNT 3.33 M/uL (4.2-5.4); WHITE BLOOD COUNT 4.36 K/uL (4.8-10.8)
[2017-04-09 06:00] LABS: INR 2.5 (0.9-1.1); PROTHROMBIN TIME (PATIENT) 27.5 SECONDS (9.0-12.0)
[2017-04-09] MEDS: METOPROLOL TARTRATE 25 MG TAB PO SCH ×2 (09:00→20:31)
[2017-04-09] MEDS: PANTOprazole INJ 40 MG in SYRINGE 0 ML IV SCH ×2 (09:12→20:28)
[2017-04-09] MEDS: IPRATROPIUM BROMIDE/ALBUTEROL respimat INH INH SCH ×2 (09:12→20:27)
[2017-04-09] MEDS: VENLAFAXINE HCL XR 150 MG CAPXR PO SCH (09:14)
[2017-04-09] MEDS: POTASSIUM CHLORIDE 10 MEQ TABCR PO SCH ×2 (09:14→20:40)
[2017-04-09] MEDS: CHOLECALCIFEROL 1000 INTER.UNIT TAB PO SCH (09:14)
[2017-04-09] MEDS: INSULIN ASPART 100 UNITS/ML 3 ML PEN SC SCH ×4 (09:20→20:37)
--- NOTE | 2017-04-09 09:42 | EMERGENCY ROOM VISIT NOTE ---
History Report prepared by Louis: Justin Smith Under the Supervision of: Dr. Nicanor Mathews M.D. First contact with patient: 16:01 Chief Complaint: ABNORMAL LABS Stated Complaint: LOW BLOOD LEVELS- PHYSICIAN REFERRED History of Present Illness The patient is a 61 year old female who presents to the Emergency Room with complaints of abnormal laboratory results. She was referred here by her primary care physician. She had her blood tested yesterday, and it showed a hemoglobin level of 6.7. She has a history of anemia from an unknown source, that her doctors cannot figure out. She has received an EGD and colonoscopy over the past couple of months that did not show anything pertinent. She had blood work done on February 25 of this year, that showed her hemoglobin was 9. It has worsened since then. 1 week ago, she received a blood transfusion. She states that she currently feels fine. She is just mildly more tired than usual. She denies any chest pain, shortness of breath, abdominal pain, diarrhea, melena, or hematochezia. She has a past medical history of a mechanical valve in her heart. She is on Warfarin secondary to her valve. Source of History: patient Onset: This past week Position: other (Global) Symptom Intensity: Hemoglobin of 6.7 Quality: other (Anemia) Timing: worsening Associated Symptoms: + fatigue (mild), No chest pain, No SOB, No abdominal pain, No melena, No hematochezia, No diarrhea Review of Systems See HPI for pertinent positives & negatives. A total of 10 systems reviewed and were otherwise negative. Past Medical & Surgical Medical Problems: (1) Anemia (2) ASCVD (arteriosclerotic cardiovascular disease) (3) Asthma (4) Cirrhosis (5) Depression (6) DM type 2 (diabetes mellitus, type 2) (7) Dyslipidemia (8) GERD (gastroesophageal reflux disease) (9) GI bleed (10) GIB (gastrointestinal bleeding) (11) VIDHI (iron deficiency anemia) Surgical Problems: (1) H/O aortic valve replacement (2) H/O pericardiectomy (3) H/O ventral hernia repair (4) History of incisional hernia repair (5) Hx of cholecystectomy (6) Hx of tonsillectomy (7) S/P angioplasty with stent Family History FH: CAD (coronary artery disease) BROTHER SISTER Social History Smoking Status: Never Smoker Alcohol Use: none Drug Use: none Marital Status: Occupation Status: retired Current/Historical Medications Scheduled Aspirin (Aspirin Chewable), 81 MG PO HS Atorvastatin (Lipitor), 80 MG PO HS Cholecalciferol (Vitamin D3), 2,000 UNIT PO DAILY Folic Acid (Folic Acid), 2 MG PO DAILY Furosemide (Lasix), 40 MG PO BID Insulin Glargine (Lantus), 40 UNITS SC HS Insulin Lispro (Human) (Humalog), 20 UNITS SQ TIDM Ipratropium-Albuterol (Combivent Respimat), 2 PUFFS INH BID Iron-Vitamin C (Vitron-C), 1 TAB PO BID Lisinopril (Zestril), 2.5 MG PO QAM Metformin Hcl (Glucophage), 1,000 MG PO BID Metoprolol Tartrate (Lopressor) (Lopressor), 25 MG PO BID Pantoprazole (Protonix), 40 MG PO BID Potassium Chloride (Micro-K Ext Rel), 20 MEQ PO QAM Potassium Chloride (K-Tabs), 10 MEQ PO QPM Venlafaxine Hcl (Venlafaxine Hcl Er), 150 MG PO QAM Warfarin Sod (Coumadin), 6 MG PO 5XWK Warfarin Sodium (Coumadin), 4 MG PO 2XWK Scheduled PRN Buspirone HCl (Buspirone HCl), 5 MG PO BID PRN for Anxiety Fluticasone Propionate (Nasal) (Flonase Allergy Relief), 2 SPRAYS BENITO DAILY PRN for Nasal Congestion Ipratropium-Albuterol (Duoneb), 1 TREATMENT INH QID PRN for SOB/Wheezing Nitroglycerin (Nitrostat), 0.4 MG UT UD PRN for Chest Pain Ondansetron Hcl (Zofran), 4 MG PO Q6 PRN for Nausea Tramadol (Ultram), 50 MG PO Q12 PRN for Pain Allergies Coded Allergies: Erythromycin (Verified Allergy, Mild, 04/01/17) Tetracycline (Verified Allergy, Mild, 04/01/17) Ciprofloxacin (Verified Allergy, Unknown, `, 04/01/17) Hydrocodone (Verified Allergy, Unknown, `, 04/01/17) Sulfa Antibiotics (Verified Allergy, Unknown, Unknown rxn, 04/01/17) Physical Exam Vital Signs Date Time Temp Pulse Resp B/P (MAP) Pulse Ox O2 Delivery O2 Flow Rate FiO2 04/08/17 16:38 80 04/08/17 16:35 83 21 103/56 98 Room Air 04/08/17 15:58 36.8 78 18 89/54 98 Room Air Physical Exam Constitutional: Vital signs reviewed. Eyes: Pupils are equal round reactive to light. Conjunctiva are noninjected. ENT: Pharynx is clear without erythema or exudate. Mucous membranes are moist. Neck supple without meningeal signs. Respiratory: Clear to auscultation bilaterally. Breath sounds are equal bilaterally. Cardiovascular: Regular rate and rhythm. Mechanical valve audible. GI: Soft, nondistended and nontender. Bowel sounds are present. Rectum: Guaiac positive, dark brown stool, no gross blood. Musculoskeletal: No peripheral edema. No lower extremity tenderness. Integumentary: No cyanosis. Neurological: The patient is awake and alert. No focal deficits. Psychiatric: Normal affect. Medical Decision & Procedures Laboratory Results 04/08/17 16:24 Test 04/08/17 16:24 04/08/17 16:39 Immature Granulocyte % (Auto) 0.3 % White Blood Count 3.71 K/uL (4.8-10.8) Red Blood Count 2.83 M/uL (4.2-5.4) Hemoglobin 7.2 g/dL (12.0-16.0) Hematocrit 24.4 % (37-47) Mean Corpuscular Volume 86.2 fL (80-100) Mean Corpuscular Hemoglobin 25.4 pg (25-34) Mean Corpuscular Hemoglobin Concent 29.5 g/dl (32-36) Platelet Count 236 K/uL (130-400) Mean Platelet Volume 10.4 fL (7.4-10.4) Neutrophils (%) (Auto) 59.8 % Lymphocytes (%) (Auto) 22.9 % Monocytes (%) (Auto) 14.6 % Eosinophils (%) (Auto) 1.9 % Basophils (%) (Auto) 0.5 % Neutrophils # (Auto) 2.22 K/uL (1.4-6.5) Lymphocytes # (Auto) 0.85 K/uL (1.2-3.4) Monocytes # (Auto) 0.54 K/uL (0.11-0.59) Eosinophils # (Auto) 0.07 K/uL (0-0.5) Basophils # (Auto) 0.02 K/uL (0-0.2) Immature Granulocyte # (Auto) 0.01 K/uL (0.00-0.02) Nucleated RBC Absolute Count (auto) 0.03 K/uL (0-0) Nucleated Red Blood Cells % 0.8 % Toxic Vacuolation 1+ Polychromasia 1+ Ovalocytes 1+ Est Creatinine Clear Calc Drug Dose 90.0 ml/min Estimated GFR () 111.8 Estimated GFR (Non- 96.5 BUN/Creatinine Ratio 21.8 (10-20) Calcium Level 9.1 mg/dl (8.5-10.1) Troponin I < 0.015 ng/ml (0-0.045) Bedside Hemoglobin 8.5 g/dl (12.0-16.0) Bedside Hematocrit 25 % (37-47) Bedside Sodium 141 mEq/L (135-144) Bedside Potassium 4.6 mEq/L (3.3-5.0) Bedside Chloride 102 mEq/L (101-112) Bedside Total CO2 22 mEq/l (24-31) Anion Gap 23.0 mmol/L (16-25) Bedside Blood Urea Nitrogen 18 mg/dl (7-18) Bedside Creatinine 0.6 mg/dl (0.6-1.3) Bedside Glucose (other) 78 mg/dl (70-99) Bedside Ionized Calcium (Eladio) 1.23 mmol/l (1.12-1.32) Laboratory results as reviewed by me. ECG Indication: weakness Rate (beats per minute): 79 Rhythm: normal sinus Findings: RBBB (Incomplete), no ectopy, other (No ST elevations) ED Course 1601: The patient was evaluated in room C11. A complete history and physical exam was performed. 1630: I reassessed the patient at this time. Her blood pressure is 103/56. I obtained written consent for transfusion. Her ISTAT hemoglobin is 8.5 and her INR is 2.2. 1645: I spoke with Theresa Ledezma, at this time. She will be evaluating the patient for further management and care. Medical Decision This is a 61-year-old female who presents with anemia. Differential diagnosis includes GI bleed, diverticulosis, AVM, supratherapeutic INR, peptic ulcer disease, mass. I did perform a limited focused review of portions of the patient's old chart on the electronic medical record. The patient had blood work done on February 25 of this year. It showed her hemoglobin level was 9. Further records from Dr. Toni PATTON, were obtained. He believed that her sudden drop in hemoglobin was related to her portal hypertension. This is caused by portal enteropathy or gastropathy. He recommended admission and transfusion. Blood Pressure Screening: Patient was found to have a decreased blood pressure and was referred to their primary doctor for recheck and further treatment. Medication Reconciliation: I attest that I have personally reviewed the patient' s current medication list. I did evaluate the patient as noted above. IV access was established. The patient was placed on a continuous rod puller and coiler. The patient is mildly hypotensive. She states that she feels tired but has no other complaints. I did order and personally review the patient's 12-lead EKG as described above. I did order and review the patient's blood work as noted in the electronic medical record. POC INR is 2.2. She is guaiac-positive but currently hemodynamically stable. She has a artificial valve and so I did not feel it was emergently indicated to reverse her Coumadin. I did order 2 units of packed RBCs after obtaining consent. I did discuss case with the hospitalist and manager case management for admission. Consults Time Called: 1640 Consulting Physician: Theresa Ledezma Returned Call: [phone] She will be evaluating the patient for further management and care. Impression Primary Impression: Severe anemia Additional Impressions: Anticoagulated on Coumadin GI bleed Scribe Attestation The scribe's documentation has been prepared under my direct and personally reviewed by me in its entirety. I confirm that the note above accurately reflects all work, treatment, procedures, and medical decision making performed by me. Departure Information Dispostion Being Evaluated By Hospitalist Referrals Luis Melo D.O. (PCP) Patient Instructions My [facility] Problem Qualifiers Additional Impressions: GI bleed GI bleed type/associated pathology: unspecified gastrointestinal hemorrhage type Qualified Codes: K92.2 - Gastrointestinal hemorrhage, unspecified
[2017-04-09 15:09] LABS: HEMATOCRIT 30.1 % (37-47)
--- NOTE | 2017-04-09 15:43 | Progress Note ---
Internal Med Progress Note Date of Service: Apr 09, 2017. Provider Documentation: H and P; Agree with H and P done by Yovana SOUZA. 61f with hx of cabg, [place] cirrhosis, mechanical AVR and on Coumadin and who has chronic iron deficiency anemia who recently had prbc transfusion for anemia and had workup for anemia by GI which was unremarkable was sent to hospital as out patient labs shows hb 6.7. Denies any active bleeding. Has rash on the left side of chest an right jiménez and she attributes to her hernia mesh. Hemodynamics stable. Denies chest pain or sob. p/e Ge not in distress Cvs s1 and s2 heard no murmurs Rs cta b/l no added sounds Abd benign Tape Duplicator non focal Ext no edema a/p Anemia iron deficiency anemia chromic Gi bleed? on Coumadin Will transfuse two units of prbc GI consulted and notified monitor in tele AVR mechanical inr 1.9 will continue Coumadin as no active bleeding and await Gi inputs close f/u labs. ASSESSMENT & PLAN: [] DVT PROPHYLAXIS [] DISPOSITION [] Vital Signs: Date Time Temp Pulse Resp B/P (MAP) Pulse Ox O2 Delivery O2 Flow Rate FiO2 04/09/17 15:18 36.7 77 18 114/58 (76) 98 Room Air 04/09/17 12:02 36.8 73 21 105/58 (74) 97 Room Air 04/09/17 12:00 Room Air 04/09/17 08:01 36.7 66 22 99/50 (66) 95 Room Air 04/09/17 08:00 Room Air 04/09/17 04:00 Room Air 04/09/17 03:42 36.8 68 20 104/50 (68) 96 Room Air 04/09/17 02:01 36.5 70 16 111/67 99 04/09/17 01:00 36.8 71 18 119/67 97 04/09/17 00:01 36.9 74 17 103/67 97 04/08/17 23:59 Room Air 04/08/17 23:30 36.9 73 19 108/59 98 04/08/17 23:15 36.9 71 18 112/62 (79) 99 Room Air 04/08/17 22:00 36.7 74 19 108/72 97 04/08/17 21:30 75 20 116/69 96 04/08/17 21:10 36.4 79 16 120/82 98 04/08/17 20:40 36.5 78 16 111/65 97 04/08/17 20:25 36.6 68 18 102/64 96 04/08/17 20:00 Room Air 04/08/17 18:51 36.9 81 17 106/46 95 Room Air 04/08/17 18:34 80 20 90/52 97 Room Air 04/08/17 16:38 80 04/08/17 16:35 83 21 103/56 98 Room Air 04/08/17 15:58 36.8 78 18 89/54 98 Room Air Lab Results: Results Past 24 Hours Test 04/08/17 16:24 04/08/17 16:39 04/08/17 17:21 04/08/17 20:15 Range/Units White Blood Count 3.71 4.8-10.8 K/uL Red Blood Count 2.83 4.2-5.4 M/uL Hemoglobin 7.2 12.0-16.0 g/dL Hematocrit 24.4 37-47 % Mean Corpuscular Volume 86.2 80-100 fL Mean Corpuscular Hemoglobin 25.4 25-34 pg Mean Corpuscular Hemoglobin Concent 29.5 32-36 g/dl Platelet Count 236 130-400 K/uL Mean Platelet Volume 10.4 7.4-10.4 fL Neutrophils (%) (Auto) 59.8 % Lymphocytes (%) (Auto) 22.9 % Monocytes (%) (Auto) 14.6 % Eosinophils (%) (Auto) 1.9 % Basophils (%) (Auto) 0.5 % Neutrophils # (Auto) 2.22 1.4-6.5 K/uL Lymphocytes # (Auto) 0.85 1.2-3.4 K/uL Monocytes # (Auto) 0.54 0.11-0.59 K/uL Eosinophils # (Auto) 0.07 0-0.5 K/uL Basophils # (Auto) 0.02 0-0.2 K/uL RDW Standard Deviation 63.3 36.4-46.3 fL RDW Coefficient of Variation 20.2 11.5-14.5 % Immature Granulocyte % (Auto) 0.3 % Immature Granulocyte # (Auto) 0.01 0.00-0.02 K/uL Nucleated RBC Absolute Count (auto) 0.03 0-0 K/uL Nucleated Red Blood Cells % 0.8 % Toxic Vacuolation 1+ Polychromasia 1+ Ovalocytes 1+ Sodium Level 141 136-145 mmol/L Potassium Level 3.9 3.5-5.1 mmol/L Chloride Level 108 98-107 mmol/L Carbon Dioxide Level 25 21-32 mmol/L Anion Gap 8.0 23.0 16-25 mmol/L Blood Urea Nitrogen 13 7-18 mg/dl Creatinine 0.61 0.60-1.20 mg/dl Est Creatinine Clear Calc Drug Dose 90.0 ml/min Estimated GFR () 111.8 Estimated GFR (Non- 96.5 BUN/Creatinine Ratio 21.8 10-20 Random Glucose 75 70-99 mg/dl Calcium Level 9.1 8.5-10.1 mg/dl Troponin I < 0.015 0-0.045 ng/ml Bedside Hemoglobin 8.5 12.0-16.0 g/dl Bedside Hematocrit 25 37-47 % Bedside Sodium 141 135-144 mEq/L Bedside Potassium 4.6 3.3-5.0 mEq/L Bedside Chloride 102 101-112 mEq/L Bedside Total CO2 22 24-31 mEq/l Bedside Blood Urea Nitrogen 18 7-18 mg/dl Bedside Creatinine 0.6 0.6-1.3 mg/dl Bedside Glucose (other) 78 70-99 mg/dl Bedside Ionized Calcium (Eladio) 1.23 1.12-1.32 mmol/l Prothrombin Time 20.6 9.0-12.0 SECONDS Prothromb Time International Ratio 1.9 0.9-1.1 Activated Partial Thromboplast Time 31.7 21.0-31.0 SECONDS Partial Thromboplastin Ratio 1.2 Bedside Glucose 95 70-90 mg/dl Test 04/09/17 03:10 04/09/17 03:29 04/09/17 05:17 04/09/17 06:40 Range/Units White Blood Count 4.36 4.8-10.8 K/uL Red Blood Count 3.33 4.2-5.4 M/uL Hemoglobin 8.9 12.0-16.0 g/dL Hematocrit 28.3 37-47 % Mean Corpuscular Volume 85.0 80-100 fL Mean Corpuscular Hemoglobin 26.7 25-34 pg Mean Corpuscular Hemoglobin Concent 31.4 32-36 g/dl RDW Standard Deviation 55.8 36.4-46.3 fL RDW Coefficient of Variation 18.5 11.5-14.5 % Platelet Count 206 130-400 K/uL Mean Platelet Volume 9.8 7.4-10.4 fL Bedside Glucose 72 93 70-90 mg/dl Prothrombin Time 27.5 9.0-12.0 SECONDS Prothromb Time International Ratio 2.5 0.9-1.1 Test 04/09/17 11:27 04/09/17 15:05 Range/Units Bedside Glucose 124 70-90 mg/dl Hemoglobin 9.2 12.0-16.0 g/dL Hematocrit 30.1 37-47 %
--- NOTE | 2017-04-09 16:43 | GASTROINTESTINAL CONSULTATION ---
DATE OF CONSULTATION: 04/09/2017 DATE OF CONSULTATION: 04/09/2017. ATTENDING PHYSICIAN: Dr. Ferrer. CONSULTING PHYSICIAN: Dr. Causey. REASON FOR CONSULTATION: GI bleed. HISTORY OF PRESENT ILLNESS: Lesley Reyes is a 61-year-old female with an extensive past medical history including [place] cirrhosis with a mechanical AVR, on chronic Coumadin therapy, who has had chronic iron deficiency anemia and has been seen by [facility] GI team for this. She has undergone an EGD as well as a colonoscopy and a capsule endoscopy within the past 6 months without source of GI bleeding found. She has needed to be maintained on Coumadin therapy secondary to a mechanical AVR. She has required repeated transfusions in the past and presented to the Department of Emergency Medicine with an H&H on 04/08/2017 of 7.2 and 24.4. I discussed the case in detail with EDILIA Yen and due to the patient's recent GI workup which has been negative and the patient being hemodynamically stable, the decision was to transfuse the patient and if she had any overt GI blood loss endoscopic workup would proceed. At the time that I saw the patient, she had received 2 units of packed red blood cells and states that she is feeling much better. Her repeat H&H today following completion of transfusions was noted to be 9.2 and 30.1. She denied any hematemesis, melena, hematochezia. She further denied any abdominal pain, fevers, chills, nausea or vomiting. She denied any further complaints. PAST MEDICAL HISTORY: Includes coronary artery disease, aortic valve replacement on chronic Coumadin therapy, type 2 diabetes mellitus, hypertension, hyperlipidemia, [place] cirrhosis, asthma, depression, iron deficiency anemia of unknown etiology. PAST SURGICAL HISTORY: Includes CABG x3, aortic valve replacement, history of pericardectomy, history of ventral hernia repair, history of incisional hernia repair, cholecystectomy, tonsillectomy, cardiac catheterization with stent placement. ALLERGIES: CIPRO, ERYTHROMYCIN, HYDROCODONE, SULFA ANTIBIOTICS AND TETRACYCLINE. MEDICATIONS AT PRESENT: Include warfarin 4 mg p.o. Sundays and Wednesdays and warfarin 6 mg p.o. Tuesday, Tuesday, , Tuesday, Tuesday, folic acid 2 mg p.o. daily, Lasix 40 mg p.o. b.i.d., Klor-Con 20 mEq p.o. q.a.m., Effexor 150 mg p.o. q.a.m., vitamin D 2000 international units p.o. daily, aspirin 81 mg p.o. at bedtime, Protonix 40 mg IV b.i.d., Zofran 4 mg p.o. q. 6 hours p.r.n. nausea, Ultram 50 mg p.o. q. 12 hours p.r.n. pain, Tylenol 650 mg p.o. q. 4 hours p.r.n. pain. SOCIAL HISTORY: She is . Denies any tobacco, alcohol or illicit drug use. FAMILY HISTORY: Negative for GI malignancy or inflammatory bowel disease. REVIEW OF SYSTEMS: Negative 10 system review other than pertinent positives listed in the HPI. PHYSICAL EXAMINATION: VITAL SIGNS: Include a temperature 36.7, pulse 77, respirations 18, blood pressure 114/58, pulse ox 98% on room air. GENERAL EXAMINATION: She is awake, cooperative, chronic ill appearing, in no acute distress. HEAD: Normocephalic, atraumatic. EYES: Pupils equally round. Extraocular muscles are intact. EARS, NOSE, THROAT: External evaluation of ears and nose are normal. Oropharynx is clear. NECK: Soft and supple. There is no JVD or lymphadenopathy. CHEST: Clear to auscultation bilaterally. CARDIOVASCULAR SYSTEM: Regular rate and rhythm. ABDOMEN: Soft, nontender, and nondistended. There are positive bowel sounds. There is no appreciable hepatosplenomegaly. EXTREMITIES: No clubbing, cyanosis, or edema. LABORATORY STUDIES: From today include an H&H of 9.2 and 30.1. IMPRESSION: A 61-year-old female with multiple medical comorbidities and iron deficiency anemia of unknown etiology, status post EGD, colonoscopy and capsule endoscopy within the past 6 months. PLAN: At the present time, I would recommend that the patient be transfused to maintain her H&H around 10 and 30 due to her history of coronary artery disease. I would recommend that she be continued on Protonix 40 mg b.i.d. I do not plan on performing any endoscopic interventions over the weekend unless she would have overt GI bleeding. I will defer to the [facility] GI team on Tuesday when they resume her care. If she is discharged prior to this I instructed her to follow up with them as an outpatient which she states she is already scheduled. Once again, thanks for allowing me to participate in the care of this patient. If you have any further questions, please do not hesitate in contacting me.
[2017-04-09] MEDS: WARFARIN SOD 6 MG TAB PO SCH (16:50)
[2017-04-09] MEDS: FUROSEMIDE 40 MG TAB PO SCH (16:50)
--- NOTE | 2017-04-09 18:42 | Progress Note ---
Internal Med Progress Note Date of Service: Apr 09, 2017. Provider Documentation: Resting comfortably no episodes of any bleeding afebrile no sob or cough no chest pain n o nausea or abdominal pain p/e Ge Alert and oriented .not in distress ENT normal hearing Neck no neck masses Cvs s1 and s2 heard, regular rate and rhythm no murmurs Rs cta b/l no wheezing or crackles Abd soft bowel sounds present, non tender no distension [employer] non focal Ext no edema no erythema ASSESSMENT & PLAN: 62YF was sent in because out patient labs showed hb 6.7. Hx of chronic GI bleed.Had Full workup in the recent past. Transfused prbc. No signs of active bleeding. On Coumadin for AVR. GI following. Close monitor as on coumadin. SYMPTOMATIC ANEMIA Underlying iron deficiency anemia in patient on Coumadin (INR 1.9) for mechanical AVR and aspirin for CAD s/p CABG and stent Recently treated with blood transfusions and iv Venofer Had workup with colonoscopy, egd and video capsule endoscopy last 6- 8 months Was admitted as out patient labs showed hb 6.7 s/p two units prbc transfused Seen by GI and appreciate inputs No plan for interventions by GI over the weekend unless any signs of active bleeding hb 9.2. Will transfuse one more units to keep hb around 10.00 EPISODIC HYPOTENSION HX HYPERTENSION Presented of initial SBP 89 -> improved to 100s with fluids Holding lisinopril Continue metoprolol and Lasix with parameters Will monitor H/O AORTIC VALVE REPLACEMENT S/p mechanical aortic valve replacement 2003 INR = 1.9 on presentation; To continue Coumadin unless signs of active bleeding inr 2.5 today CHRONIC CHF WITH PRESERVED EF Due to valvular disease Euvolemic received 40 mg PO Lasix between transfusions (hold for SBP <100) currently on home diuretics PO Lasix 40 mg BID CORONARY ARTERY DISEASE S/p CABG x 1 in 2010 and stent x 2 in Jun 2016 To continue aspirin due to history of stent on beta kal and statin stable. asymptomatic Will monitor DM TYPE 2 Holding metformin On Lantus NovoLog sliding scale coverage 72/93/124/193 ASTHMA Not in acute exacerbation Continue home inhalers/ nebs DEPRESSION/ANXIETY On Effexor and Buspar DYSLIPIDEMIA On statin DVT PROPHYLAXIS On Coumadin FULL CODE DISPOSITION Monitor in telemetry to be determined Follows with Dr. Melo for primary care Vital Signs: Date Time Temp Pulse Resp B/P (MAP) Pulse Ox O2 Delivery O2 Flow Rate FiO2 04/09/17 19:45 36.8 78 22 121/63 (82) 100 Room Air 04/09/17 16:00 Room Air 04/09/17 15:18 36.7 77 18 114/58 (76) 98 Room Air 04/09/17 12:02 36.8 73 21 105/58 (74) 97 Room Air 04/09/17 12:00 Room Air 04/09/17 08:01 36.7 66 22 99/50 (66) 95 Room Air 04/09/17 08:00 Room Air 04/09/17 04:00 Room Air 04/09/17 03:42 36.8 68 20 104/50 (68) 96 Room Air 04/09/17 02:01 36.5 70 16 111/67 99 04/09/17 01:00 36.8 71 18 119/67 97 04/09/17 00:01 36.9 74 17 103/67 97 04/08/17 23:59 Room Air 04/08/17 23:30 36.9 73 19 108/59 98 04/08/17 23:15 36.9 71 18 112/62 (79) 99 Room Air 04/08/17 22:00 36.7 74 19 108/72 97 04/08/17 21:30 75 20 116/69 96 04/08/17 21:10 36.4 79 16 120/82 98 04/08/17 20:40 36.5 78 16 111/65 97 04/08/17 20:25 36.6 68 18 102/64 96 04/08/17 20:00 Room Air Lab Results: Results Past 24 Hours Test 04/08/17 20:15 04/09/17 03:10 04/09/17 03:29 04/09/17 05:17 Range/Units Bedside Glucose 95 72 70-90 mg/dl White Blood Count 4.36 4.8-10.8 K/uL Red Blood Count 3.33 4.2-5.4 M/uL Hemoglobin 8.9 12.0-16.0 g/dL Hematocrit 28.3 37-47 % Mean Corpuscular Volume 85.0 80-100 fL Mean Corpuscular Hemoglobin 26.7 25-34 pg Mean Corpuscular Hemoglobin Concent 31.4 32-36 g/dl RDW Standard Deviation 55.8 36.4-46.3 fL RDW Coefficient of Variation 18.5 11.5-14.5 % Platelet Count 206 130-400 K/uL Mean Platelet Volume 9.8 7.4-10.4 fL Prothrombin Time 27.5 9.0-12.0 SECONDS Prothromb Time International Ratio 2.5 0.9-1.1 Test 04/09/17 06:40 04/09/17 11:27 04/09/17 15:05 04/09/17 16:16 Range/Units Bedside Glucose 93 124 193 70-90 mg/dl Hemoglobin 9.2 12.0-16.0 g/dL Hematocrit 30.1 37-47 %
[2017-04-09] MEDS ORDERED: ACETAMINOPHEN 325 MG TAB PO ONE (20:00)
[2017-04-09] MEDS: ASPIRIN 81 MG ECTAB PO SCH (20:28)
[2017-04-09] MEDS: ATORVASTATIN 40 MG TAB PO SCH (20:29)
[2017-04-09] MEDS: INSULIN GLARGINE SOLOSTAR 100 UNITS/ML 3 ML PEN SC SCH (20:39)
[2017-04-10] VITALS: BP 120/64; PULSE 74; O2SAT 100
[2017-04-10 03:45] VITALS: BP 114/79; PULSE 74; TEMP 36.8; O2SAT 97
[2017-04-10 06:05] LABS: BASO % 0.6 %; BASO ABS # 0.02 K/uL (0-0.2); COMPLETE YES; EOS % 3.1 %; HEMATOCRIT 32.1 % (37-47); IG% 0.3 %; LYMPH % 25.8 %; LYMPH ABS # 0.92 K/uL (1.2-3.4); MEAN CELL VOLUME 85.1 fL (80-100); MEAN CORPUSCULAR HEMOGLOBIN 25.2 pg (25-34); MEAN CORPUSCULAR HGB CONC 29.6 g/dl (32-36); MEAN PLATELET VOLUME 10.5 fL (7.4-10.4); MONO % 13.2 %; PLATELET COUNT 193 K/uL (130-400); RED BLOOD COUNT 3.77 M/uL (4.2-5.4); WHITE BLOOD COUNT 3.56 K/uL (4.8-10.8)
[2017-04-10 06:51] LABS: BUN/CREATININE RATIO 16.1 (10-20); CREATININE 0.5 mg/dl (0.60-1.20); MAGNESIUM 1.8 mg/dl (1.8-2.4); POTASSIUM 3.4 mmol/L (3.5-5.1)
[2017-04-10 07:55] VITALS: BP 138/69; PULSE 78; TEMP 36.5; O2SAT 95
[2017-04-10] MEDS: INSULIN ASPART 100 UNITS/ML 3 ML PEN SC SCH ×2 (08:29→12:42)
--- NOTE | 2017-04-10 08:56 | Progress Note ---
Medicine Progress Note Date & Time of Visit: Apr 10, 2017 at 08:50 . Subjective Doing well. Anxious to go home. No CP, SOB, nausea, vomiting, abdominal pain, melena, hematochezia. . Objective Last 8 Hrs Date Time Temp Pulse Resp B/P (MAP) Pulse Ox O2 Delivery O2 Flow Rate FiO2 04/10/17 07:55 36.5 78 19 138/69 (92) 95 Room Air 04/10/17 04:00 Room Air 04/10/17 03:45 36.8 74 18 114/79 (91) 97 Room Air Physical Exam: General- lying in bed, no distress Neck- no JVD Lungs- clear to auscultation Heart- RRR, III/ mechanical aortic murmur, no gallop Abdomen- + BS, soft, nontender Extremities- no pretibial edema or calf tenderness Neuro- alert . Laboratory Results: Last 24 Hours Test 04/09/17 11:27 04/09/17 15:05 04/09/17 16:16 04/09/17 20:31 Bedside Glucose 124 mg/dl 193 mg/dl 264 mg/dl Hemoglobin 9.2 g/dL Hematocrit 30.1 % Test 04/10/17 05:15 04/10/17 07:13 White Blood Count 3.56 K/uL Red Blood Count 3.77 M/uL Hemoglobin 9.5 g/dL Hematocrit 32.1 % Mean Corpuscular Volume 85.1 fL Mean Corpuscular Hemoglobin 25.2 pg Mean Corpuscular Hemoglobin Concent 29.6 g/dl Platelet Count 193 K/uL Mean Platelet Volume 10.5 fL Neutrophils (%) (Auto) 57.0 % Lymphocytes (%) (Auto) 25.8 % Monocytes (%) (Auto) 13.2 % Eosinophils (%) (Auto) 3.1 % Basophils (%) (Auto) 0.6 % Neutrophils # (Auto) 2.03 K/uL Lymphocytes # (Auto) 0.92 K/uL Monocytes # (Auto) 0.47 K/uL Eosinophils # (Auto) 0.11 K/uL Basophils # (Auto) 0.02 K/uL RDW Standard Deviation 55.1 fL RDW Coefficient of Variation 18.6 % Immature Granulocyte % (Auto) 0.3 % Immature Granulocyte # (Auto) 0.01 K/uL Sodium Level 141 mmol/L Potassium Level 3.4 mmol/L Chloride Level 107 mmol/L Carbon Dioxide Level 27 mmol/L Anion Gap 7.0 mmol/L Blood Urea Nitrogen 8 mg/dl Creatinine 0.50 mg/dl Est Creatinine Clear Calc Drug Dose 109.1 ml/min Estimated GFR () 119.4 Estimated GFR (Non- 103.0 BUN/Creatinine Ratio 16.1 Random Glucose 186 mg/dl Calcium Level 8.0 mg/dl Magnesium Level 1.8 mg/dl Bedside Glucose 145 mg/dl Assessment & Plan ANEMIA Hgb in clinic 6.7. Hgb 7.2 at time of admission. No gross GI bleeding or hemodynamic instability. Chronic Fe def anemia attributed to chronic GI blood loss. Has undergone upper and lower GI evaluation. Need to continue aspirin and warfarin due to underlying cardiac issues. Received 3 units pRBC's. Hgb today = 9.5. Continue Fe. Monitor H/H as outpatient. Transfuse PRN. CORONARY ARTERY DISEASE S/P PCI. No anginal symptoms. Continue aspirin, metoprolol, statin. CHRONIC DIASTOLIC CHF Compensated. S/P AORTIC VALVE REPLACEMENT Continue warfarin. DM TYPE 2 Metformin held. Received insulin per protocol. VTE PROPHYLAXIS On warfarin. Ambulating. DISPOSITION Discharge to home. Internal Medicine follow-up with Dr. Melo. . Current Inpatient Medications: Current Inpatient Medications Medications (Trade) Dose Ordered Sig/[place] Route Start Time Stop Time Status Last Admin Dose Admin Acetaminophen (Tylenol Tab) 650 mg Q4H PRN PO 04/08/17 18:00 05/08/17 17:59 Ondansetron HCl (Zofran Inj) 4 mg Q6H PRN IV 04/08/17 18:00 05/08/17 17:59 Insulin Aspart (novoLOG ASPART) SLIDING SCALE If C... ACHS SC 04/08/17 21:00 05/08/17 20:59 04/10/17 08:29 4 UNITS Glucose (Glucose 40% Gel) 15-30 GRAMS 15 GRAMS... UD PRN PO 04/08/17 18:30 05/08/17 18:29 Glucose (Glucose Chew Tab) 4-8 Tablets 4 Tabl... UD PRN PO 04/08/17 18:30 05/08/17 18:29 Dextrose (Dextrose 50% 50ML Syringe) 25-50ML OF 50% DW IV FOR... UD PRN IV 04/08/17 18:30 05/08/17 18:29 Glucagon (Glucagon Inj) 1 mg UD PRN SQ 04/08/17 18:30 05/08/17 18:29 Atorvastatin Calcium (Lipitor Tab) 80 mg HS PO 04/08/17 21:00 05/08/17 20:59 04/09/17 20:29 80 MG Buspirone HCl (Buspar Tab) 5 mg BID PRN PO 04/08/17 18:30 05/08/17 18:29 Fluticasone Propionate (Flonase Nasal [place]) 2 sprays DAILY PRN BENITO 04/08/17 18:30 05/08/17 18:29 Folic Acid (Folvite Tab) 2 mg DAILY PO 04/09/17 09:00 05/09/17 08:59 04/09/17 09:15 2 MG Furosemide (Lasix Tab) 40 mg BID17 PO 04/09/17 09:00 05/09/17 08:59 04/09/17 16:50 40 MG Insulin Glargine (Lantus Solostar Pen) 40 unit HS SC 04/08/17 21:00 05/08/17 20:59 04/09/17 20:39 40 UNIT Albuterol/ Ipratropium (Combivent Respimat Inh) 2 puffs BID INH 04/08/17 21:00 05/08/17 20:59 04/09/17 20:27 2 PUFFS Albuterol/ Ipratropium (Duoneb) 3 ml QID PRN INH 04/08/17 18:30 05/08/17 18:29 Metoprolol Tartrate (Lopressor Tab) 25 mg BID PO 04/08/17 21:00 05/08/17 20:59 04/09/17 20:31 25 MG Nitroglycerin (Nitrostat Tab) 0.4 mg UD PRN UT 04/08/17 18:30 05/08/17 18:29 Ondansetron HCl (Zofran Tab) 4 mg Q6 PRN PO 04/08/17 18:30 05/08/17 18:29 Potassium Chloride (Klor-Con M10) 20 meq QAM PO 04/09/17 09:00 05/09/17 08:59 04/09/17 09:14 20 MEQ Tramadol HCl (Ultram Tab) 50 mg Q12 PRN PO 04/08/17 18:30 05/08/17 18:29 Venlafaxine HCl (effeXOR EXTENDED REL CAP) 150 mg QAM PO 04/09/17 09:00 05/09/17 08:59 04/09/17 09:14 150 MG Cholecalciferol (Vitamin D Tab) 2,000 inter.unit DAILY PO 04/09/17 09:00 05/09/17 08:59 04/09/17 09:14 2,000 INTER.UNIT Miscellaneous Information (Order Awaiting Action) 1 ea QS N/A 04/09/17 00:00 05/09/17 00:00 Potassium Chloride (Klor-Con M10) 10 meq QPM PO 04/08/17 21:00 05/08/17 20:59 04/09/17 20:40 10 MEQ Aspirin (Ecotrin Tab) 81 mg HS PO 04/08/17 21:00 05/08/17 20:59 04/09/17 20:28 81 MG Warfarin Sodium (Coumadin Tab) 6 mg MoTuThFrSa@1600 PO 04/08/17 20:00 05/08/17 19:59 04/09/17 16:50 6 MG Warfarin Sodium (Coumadin Tab) 4 mg SuWe@1600 PO 04/10/17 16:00 05/10/17 15:59 Pantoprazole Sodium 40 mg/ Syringe 10 ml @ 5 mls/min BID@0900,2100 IV 04/08/17 21:00 05/08/17 20:59 04/09/17 20:28 5 MLS/MIN Potassium Chloride (Klor-Con Tab) 20 meq TODAY@1300 ONCE PO 04/10/17 13:00 04/10/17 13:01
[2017-04-10] MEDS: IPRATROPIUM BROMIDE/ALBUTEROL respimat INH INH SCH (10:12)
[2017-04-10] MEDS: FUROSEMIDE 40 MG TAB PO SCH (10:12)
[2017-04-10] MEDS: PANTOprazole INJ 40 MG in SYRINGE 0 ML IV SCH (10:12)
[2017-04-10] MEDS: CHOLECALCIFEROL 1000 INTER.UNIT TAB PO SCH (10:12)
[2017-04-10] MEDS: VENLAFAXINE HCL XR 150 MG CAPXR PO SCH (10:13)
[2017-04-10] MEDS: METOPROLOL TARTRATE 25 MG TAB PO SCH (10:13)
[2017-04-10] MEDS: POTASSIUM CHLORIDE 10 MEQ TABCR PO SCH (10:13)
[2017-04-10 11:20] VITALS: BP 134/73; PULSE 72; TEMP 36.6; O2SAT 96
--- NOTE | 2017-04-10 12:18 | GASTROENTEROLOGY PROGRESS NOTE ---
DATE: 04/10/2017 Progress note on cross coverage for [facility]. AGE: 61. SEX: Female. RACE: . SUBJECTIVE: I had the pleasure of seeing Lesley Reyes at her bedside today. She is feeling better. She denies any lightheadedness, dizziness, fevers, chills, nausea, vomiting, hematemesis, melena or hematochezia. She does state that she has been tolerating p.o. intake and denies any other complaints. PHYSICAL EXAMINATION: VITAL SIGNS: Include temp 36.6, pulse 72, respirations 20, blood pressure 134/73, and pulse ox 96% on room air. GENERAL: She is awake and cooperative, in no acute distress. She is chronic ill appearing. CHEST: Decreased breath sounds at bilateral bases. CARDIOVASCULAR SYSTEM: Regular rate and rhythm. ABDOMEN: Soft, nontender, and nondistended. Positive bowel sounds. EXTREMITIES: No clubbing, cyanosis, or edema. LABORATORY STUDIES: From this morning include an H&H of 9.5 and 32.1. Her BUN and creatinine are 8 and 0.5. IMPRESSION: A 61-year-old female with a history of multiple medical comorbidities and iron deficiency anemia of unknown etiology, who has undergone an endoscopic workup as well as capsule endoscopies in the past 6 months. PLAN: The patient follows with [facility]. Once discharged, she will follow up with them and they will provide further care in regards to her GI symptomatology. As she has had no overt GI bleeding on this admission, I do not recommend endoscopic workup. I would recommend that she be continued on Protonix 40 mg p.o. b.i.d. and transfuse as needed to maintain her H&H around 10 and 30 secondary to her history of coronary artery disease. Once again, thanks for allowing me to participate in the care of this patient. If you have any further questions, please do not hesitate in contacting me.
[2017-04-10] MEDS ORDERED: POTASSIUM CHLORIDE 20 MEQ TABCR PO ONE (13:00)
--- NOTE | 2017-04-10 13:30 | Discharge Instructions ---
Discharge Instructions Date of Service Apr 10, 2017. Admission Reason for Admission: anemia . Discharge Discharge Diagnosis / Problem: anemia Discharge Goals Goal(s): Improve function, Improve disease control Activity Recommendations Activity Limitations: resume your previous activity . Instructions / Follow-Up Instructions / Follow-Up APPOINTMENTS: INTERNAL MEDICINE 04/14/17 at 12:45 Chaparor Chavira MD (covering for Dr. Melo) [facility] Office INSTRUCTIONS: Your blood count was low again- hemoglobin level was 7.2. You received 3 units of blood. Your hemoglobin level was 9.5 on 04/10/17. You need to continue taking aspirin and warfarin (Coumadin) because of your heart disease. Seek medical attention if you have: * chest pain or trouble breathing * abdominal pain, nausea, vomiting * diarrhea, dark stools or bloody stools * any unanswered questions or concerns Call 911 if symptoms are severe. Call if you have any questions or problems. My cell # is [phone]. You can also reach a [facility] hospitalist on duty at [facility] 24 hours a day by calling [phone]. Please take good care of yourself. Leobardo Miranda . Current Hospital Diet Patient's current hospital diet: AHA Diet (Heart Healthy), Diabetes Type 2 Diet Discharge Diet Recommended Diet: AHA Diet (Heart Healthy), Diabetes Type 2 Diet Pending Studies Studies pending at discharge: no Medical Emergencies . Who to Call and When: Medical Emergencies: If at any time you feel your situation is an emergency, please call 911 immediately. . Non-Emergent Contact Non-Emergency issues call your: Primary Care Provider, Hospital Doctor . . "Provider Documentation" section prepared by Leobardo Miranda. . VTE Core Measure Inpt VTE Proph given/why not?: Warfarin (Coumadin)
[2017-04-10 13:35] VITALS: BP 134/73; PULSE 72; TEMP 36.6; O2SAT 96
[2017-04-10] MEDS ORDERED: WARFARIN SOD 4 MG TAB PO SCH (16:00)
--- NOTE | 2017-04-10 21:34 | Discharge Summary ---
Discharge Summary Date of Service Apr 10, 2017. Discharge Summary Admission Date: Apr 08, 2017 at 17:13 Discharge Date: Apr 10, 2017 Discharge Disposition: Home Principal Diagnosis: anemia, iron deficiency . Secondary Diagnoses/Problems: Chronic and Resolved Medical Problems: (1) ASCVD (arteriosclerotic cardiovascular disease) Status: Chronic (2) Asthma Status: Chronic (3) Cirrhosis Status: Chronic (4) Depression Status: Chronic (5) DM type 2 (diabetes mellitus, type 2) Status: Chronic (6) Dyslipidemia Status: Chronic (7) GERD (gastroesophageal reflux disease) Status: Chronic (8) VIDHI (iron deficiency anemia) Status: Chronic Surgical Problems: (1) H/O aortic valve replacement Status: Chronic (2) H/O pericardiectomy Status: Chronic (3) H/O ventral hernia repair Status: Chronic (4) History of incisional hernia repair Status: Chronic (5) Hx of cholecystectomy Status: Chronic (6) Hx of tonsillectomy Status: Chronic (7) S/P angioplasty with stent Status: Chronic . Procedures: cardiac monitoring transfusion 3 units pRBC's. . Pending Studies/Follow-Up: Please monitor H/H and INR in clinic. . Medication Reconciliation Continued Medications: Aspirin (Aspirin Chewable) 81 Mg Chew 81 MG PO HS, TAB Atorvastatin (Lipitor) 80 Mg Tab 80 MG PO HS, TAB Buspirone HCl (Buspirone HCl) 5 Mg Tab 5 MG PO BID PRN for Anxiety Cholecalciferol (Vitamin D3) 2,000 Unit Cap 2000 UNIT PO DAILY, 3 Refills Fluticasone Propionate (Nasal) (Flonase Allergy Relief) 50 Mcg/Act Spr 2 SPRAYS BENITO DAILY PRN for Nasal Congestion Folic Acid (Folic Acid) 1 Mg Tab 2 MG PO DAILY Furosemide (Lasix) 40 Mg Tab 40 MG PO BID Insulin Glargine (Lantus) 100 Unit/Ml Inj 40 UNITS SC HS, VIAL Insulin Lispro (Human) (Humalog) 100 Unit/Ml Inj 20 UNITS SQ TIDM Ipratropium-Albuterol (Combivent Respimat) 1 Aer Aer 2 PUFFS INH BID, INH Ipratropium-Albuterol (Duoneb) 3 Ml Nebu 1 TREATMENT INH QID PRN for SOB/Wheezing, INHA Iron-Vitamin C (Vitron-C) 1 Tab Tab 1 TAB PO BID Lisinopril (Zestril) 5 Mg Tab 2.5 MG PO QAM Metformin Hcl (Glucophage) 1,000 Mg Tab 1000 MG PO BID Metoprolol Tartrate (Lopressor) (Lopressor) 25 Mg Tab 25 MG PO BID, 0 Refills Nitroglycerin (Nitrostat) 0.4 Mg Tab 0.4 MG UT UD PRN for Chest Pain, BTL Ondansetron Hcl (Zofran) 4 Mg Tab 4 MG PO Q6 PRN for Nausea Pantoprazole (Protonix) 40 Mg Tab 40 MG PO BID, #30 TAB Potassium Chloride (Micro-K Ext Rel) 10 Meq Capcr 20 MEQ PO QAM Potassium Chloride (K-Tabs) 10 Meq Tabcr 10 MEQ PO QPM Tramadol (Ultram) 50 Mg Tab 50 MG PO Q12 PRN for Pain, TAB Venlafaxine Hcl (Venlafaxine Hcl Er) 150 Mg Tab 150 MG PO QAM, 2 Refills Warfarin Sod (Coumadin) 6 Mg Tab 6 MG PO 5XWK for EXCEPT TUESDAY AND TUESDAY Warfarin Sodium (Coumadin) 4 Mg Tab 4 MG PO 2XWK TUESDAY AND TUESDAY ONLY Admission Information HPI (per Admitting provider): This is a 61 year old female with PMH of CAD s/p CABG and stent, mechanical aortic valve on Coumadin, DM type 2, HTN, dyslipidemia, hx of [place] cirrhosis, and other problems listed below who was sent to the ED for abnormal outpatient labs. Has chronic iron deficiency anemia treated with IV iron (last infusion ) and PO iron and blood (last tranfused 1 unit on 04/01) as outpatient. Hg was running in low 7's for past month then decreased to 6.7 yesterday. Had negative colonoscopy July 2016. Had negative EGD in December 2016. Recently hospitalized February 2017 for symptomatic anemia requiring 2 units pRBC. Seen by GI. Seen by cardiology. Anticoagulation was continued. Had outpatient video capsule endoscopy after discharge which was negative. Patient admits to fatigue and dizziness upon bending forward. She denies any jamie GI bleeding symptoms- no hematemesis, hematochezia, melena. No other abnormal bleeding including epistaxis, gum bleeding, hematuria. No change in chronic cough with clear sputum. Denies fever, chills, chest pain, SOB, abdominal pain, reflux, nausea, vomiting, diarrhea, constipation, dysuria, frequency, edema. In the ER patient' s Hg was 7.2 and rectal exam showed dark heme positive stool. . Physical Exam (per Admitting): General Appearance: no apparent distress, + obese, + pertinent finding ( pleasant alert 61 year old female, no distress) Head: normocephalic, atraumatic Eyes: normal inspection, PERRL, EOMI, sclerae normal ENT: hearing grossly normal, pharynx normal Neck: supple, trachea midline Respiratory/Chest: lungs clear, normal breath sounds, no respiratory distress, no accessory muscle use Cardiovascular: regular rate, rhythm, no JVD, + pertinent finding ( mechanical valve sound) Abdomen/GI: normal bowel sounds, non tender, soft Extremities/Musculoskelatal: no calf tenderness, no pedal edema Neurologic/Psych: alert, normal mood/affect, oriented x 3, + pertinent finding (no focal deficit on gross examination) Skin: warm/dry, + pallor Hospital Course ANEMIA Hgb in clinic 6.7. Hgb 7.2 at time of admission. No gross GI bleeding or hemodynamic instability. Chronic Fe def anemia attributed to chronic GI blood loss. Has undergone upper and lower GI evaluation. Need to continue aspirin and warfarin due to underlying cardiac issues. Received 3 units pRBC's. Hgb today = 9.5. Continue Fe. Monitor H/H as outpatient. Transfuse PRN. CORONARY ARTERY DISEASE S/P PCI. No anginal symptoms. Continue aspirin, metoprolol, statin. CHRONIC DIASTOLIC CHF Compensated. S/P AORTIC VALVE REPLACEMENT Continue warfarin. DM TYPE 2 Metformin held. Received insulin per protocol. VTE PROPHYLAXIS On warfarin. Ambulating. DISPOSITION Discharge to home. Internal Medicine follow-up with Dr. Melo. . Total time spent on discharge = 35 min. This includes examination of the patient, discharge planning, medication reconciliation, and communication with other providers. . Discharge Instructions Date of Service Apr 10, 2017. Admission Reason for Admission: anemia . Discharge Discharge Diagnosis / Problem: anemia Discharge Goals Goal(s): Improve function, Improve disease control Activity Recommendations Activity Limitations: resume your previous activity . Instructions / Follow-Up Instructions / Follow-Up APPOINTMENTS: INTERNAL MEDICINE 04/14/17 at 12:45 Chaparro Chavira MD (covering for Dr. Melo) [facility] Office INSTRUCTIONS: Your blood count was low again- hemoglobin level was 7.2. You received 3 units of blood. Your hemoglobin level was 9.5 on 04/10/17. You need to continue taking aspirin and warfarin (Coumadin) because of your heart disease. Seek medical attention if you have: * chest pain or trouble breathing * abdominal pain, nausea, vomiting * diarrhea, dark stools or bloody stools * any unanswered questions or concerns Call 911 if symptoms are severe. Call if you have any questions or problems. My cell # is [phone]. You can also reach a [facility] hospitalist on duty at [facility] 24 hours a day by calling [phone]. Please take good care of yourself. Leobardo Miranda . Current Hospital Diet Patient's current hospital diet: AHA Diet (Heart Healthy), Diabetes Type 2 Diet Discharge Diet Recommended Diet: AHA Diet (Heart Healthy), Diabetes Type 2 Diet Pending Studies Studies pending at discharge: no Medical Emergencies . Who to Call and When: Medical Emergencies: If at any time you feel your situation is an emergency, please call 911 immediately. . Non-Emergent Contact Non-Emergency issues call your: Primary Care Provider, Hospital Doctor . . "Provider Documentation" section prepared by Leobardo Miranda. . VTE Core Measure Inpt VTE Proph given/why not?: Warfarin (Coumadin) . Additional Copies To Luis Melo D.O.
[2017-06-07] MEDS ORDERED: LUPIN PO (11:11)
[2017-08-14] MEDS ORDERED: CRFUDL PO (07:46)
== END 2017-04-10 16:07 | disposition home or self-care (01) | DRG 812 ==
LOC: C.EDB 15:51 → C.2E 17:13 → ENRESERV 18:02
PROVIDERS: ADMIT Internal Medicine; ATTEND Hospitalist
DX: D50.9 Iron deficiency anemia, unspecified (principal); I50.32 Chronic diastolic (congestive) heart failure; E11.9 Type 2 diabetes mellitus without complications; E78.5 Hyperlipidemia, unspecified; K21.9 Gastro-esophageal reflux disease without esophagitis; I25.10 Atherosclerotic heart disease of native coronary artery without angina pectoris; I10 Essential (primary) hypertension; J45.909 Unspecified asthma, uncomplicated; I95.9 Hypotension, unspecified; F32.9 Major depressive disorder, single episode, unspecified; F41.9 Anxiety disorder, unspecified; Z79.01 Long term (current) use of anticoagulants; Z79.4 Long term (current) use of insulin; Z79.82 Long term (current) use of aspirin; Z79.899 Other long term (current) drug therapy; Z95.1 Presence of aortocoronary bypass graft; Z95.2 Presence of prosthetic heart valve

== ENCOUNTER 2017-08-10 19:53 | Inpatient (IN) | payer OTHER, BC ==
[~2017-08-10] VITALS: Ht 152.4 cm; Wt 77.0 kg
[~2017-08-10 19:53] MED LIST changes: -ALBUAER PO; +LUPIN PO
[2017-08-10] MEDS ORDERED: LSN25 PO (22:44)
[2017-08-10] MEDS ORDERED: PROP10TA7 PO (22:48)
[2017-08-10] MEDS ORDERED: ALBUAER PO (22:51)
[2017-08-10 22:53] VITALS: BP 131/74; PULSE 73; TEMP 36.9; O2SAT 99; Ht 152.4 cm; Wt 77.0 kg
[2017-08-10 23:29] LABS: HEMATOCRIT 26.3 % (37-47)
[2017-08-10] MEDS ORDERED: MAGNESIUM SULFATE 1GM / D5W 1 GM in PREMIXED IN D5W 100 ML IV SCH (23:30)
[2017-08-10] MEDS ORDERED: ACETAMINOPHEN 325 MG TAB PO PRN (23:45)
[2017-08-10] MEDS ORDERED: GLUCOSE 10 TABS/TUBE PO PRN (23:45)
[2017-08-10] MEDS ORDERED: GLUCAGON FOR INJ 1 MG VIAL SQ PRN (23:45)
[2017-08-10] MEDS ORDERED: DEXTROSE 50% 50 ML SYR IV PRN (23:45)
[2017-08-10] MEDS ORDERED: GLUCOSE 40% GEL 15 GM TUBE PO PRN (23:45)
[2017-08-10] MEDS ORDERED: NITROGLYCERIN 0.4 MG SL PER TAB CHARGE SL PRN (23:45)
[2017-08-10 23:49] LABS: BUN/CREATININE RATIO 12.4 (10-20); CALCIUM 8.1 mg/dl (8.5-10.1); CREATININE 0.52 mg/dl (0.60-1.20); MAGNESIUM 2.1 mg/dl (1.8-2.4); POTASSIUM 3.7 mmol/L (3.5-5.1)
[2017-08-10] MEDS ORDERED: INSULIN GLARGINE SOLOSTAR 100 UNITS/ML 3 ML PEN SC ONE (23:56)
[2017-08-11] VITALS (9 sets, daily range): BP systolic 114–161; BP diastolic 55–81; PULSE 73–91; TEMP 36.6–37; O2SAT 94–97
[2017-08-11] MEDS ORDERED: LACTATED RINGER'S 1000ML 1,000 ML IV SCH
[2017-08-11] MEDS ORDERED: NSS + 20MEQ KCL 1000ML 1,000 ML IV SCH
[2017-08-11] MEDS ORDERED: INSULIN ASPART 100 UNITS/ML 3 ML PEN SC ONE
[2017-08-11] MEDS ORDERED: PANTOprazole INJ 80 MG in DEXTROSE 5% 100ML IV SCH ×2
[2017-08-11] MEDS ORDERED: AMOXICILLIN/CLAVULANATE TAB 875 MG TAB PO ONE (00:10)
[2017-08-11] MEDS ORDERED: ALBUT/IPRATROP 3MG/0.5MG NEB 3 ML VIAL INH PRN (00:15)
[2017-08-11] MEDS ORDERED: ONDANSETRON INJ 2 MG/ML 2 ML VIAL IV PRN (00:30)
[2017-08-11] MEDS ORDERED: TRAMADOL HCL 50 MG TAB PO PRN (00:30)
[2017-08-11] MEDS ORDERED: LORAZEPAM 2 MG/ML 1 ML VIAL IV PRN (00:30)
[2017-08-11] MEDS ORDERED: MoRPHine SULFATE 4 MG/ML 1 ML CARP\\VIAL IV PRN (00:30)
[2017-08-11] MEDS: PANTOprazole INJ 40 MG in DEXTROSE 5% 100ML IV SCH ×4 (00:41→15:57)
--- NOTE | 2017-08-11 05:34 | HISTORY & PHYSICAL EXAMINATION ---
DATE OF ADMISSION: 08/10/2017 PRIMARY CARE PHYSICIAN: Luis Melo DO. CHIEF COMPLAINT: GI bleed. HISTORY OF PRESENT ILLNESS: History obtained from patient and records. Medical history significant for coronary artery disease, chronic left bundle branch block, aortic stenosis status post mechanical AVR, on Coumadin, hypertension, hyperlipidemia, COPD as per records, MARIAH on CPAP, cirrhosis secondary to nonalcoholic fatty liver disease, chronic anemia (baseline hemoglobin of 8), DM2, insulin requiring. Recent confinement last March 2017 for symptomatic anemia. Patient noted to be heme positive stools . No endoscopies done at that time. The last few days, patient noted cough symptoms, productive of yellow sputum. No chest pain, no shortness of breath. Stools noted to be dark the last few days. No abdominal pain. No nausea, no emesis. No dysuria. Patient seen at [facility] Emergency Room. Hemoglobin noted to be 8. Melanotic stool noted to be Heme positive. Patient given IV Ceftriaxone for possible UTI. Transferred to [facility] for further evaluation by specialists. MEDICAL HISTORY: As above. Most recent EGD was in December 2016, which showed gastric polyp removal site. Colonoscopy from July 2016 showed internal hemorrhoids and polyps. SURGERIES: Aortic valve replacement, pericardectomy, ventral hernia, cholecystectomy, tonsillectomy. FAMILY HISTORY: Family history of heart disease. PERSONAL AND SOCIAL HISTORY: Nonsmoker, no chronic intake of alcoholic beverages. Disabled. REVIEW OF SYSTEMS: As per HPI, all other ROS negative. PHYSICAL EXAMINATION: VITAL SIGNS: Blood pressure was noted to be 131/74, pulse rate 70, RR 20, temperature 37 sats 99% on room air. GENERAL: Noted to be slightly anxious, no respiratory distress, obese. SKIN: Pallor, warm. HEENT: Pale palpebral conjunctivae. No ptosis. Dry buccal mucosa. Note of some multiple nodular lesions in the face (patient attributes to mesh allergy) NECK: Supple. No tenderness. CHEST: Clear to auscultation. No tenderness. HEART: Regular rate and rhythm. Mechanical murmur. ABDOMEN: Soft, some distension, nontender. EXTREMITIES: Minimal LE edema, no tenderness. No gross deformities. NEUROLOGIC: Coherent. No gross focality. LABORATORY DATA: From [facility] 08/11, hemoglobin was noted to be 8.2, hematocrit 36.1, white cell 4.7, platelets 221. Sodium 139, potassium 3.8, chloride 107, CO2 25, BUN 6, creatinine 0.7, glucose 379. Anion gap was noted to be 13. INR was noted to be 3. Chest x-ray as per my interpretation from [facility] showed cardiomegaly, no obvious infiltrate. EKG, no ischemia. ASSESSMENT: 1. Recurrent upper gastrointestinal bleed painless symptoms Patient's hemoglobin from [place] ER at baseline. 2. Complicated bronchitis, no sepsis. 3. Coronary artery disease status post stenting. 4. History of mechanical AVR, on Coumadin tx. INR therapeutic. 5. Mild diabetic ketoacidosis DM2, insulin requiring well controlled as of recent outpatient hemoglobin A1c. 6. Chronic lung disease, stable. 7. Cirrhosis secondary to nonalcoholic fatty liver disease, No overt decompensation 8. Asymptomatic pyuria PLAN: PCU Hold antiplatelet and Coumadin Rx for now follow H and H, transfuse packed RBC to maintain hemoglobin greater than 8 (hx CAD) IV PPI. GI consult , recurrent UGIB, patient known [facility]. Augmentin for complicated bronchitis. Follow up chemistry w/ note of mild DKA from [place] ER blood work. May need IV insulin if DKA persistent. Basal Lantus adjusted for NPO/sips status otherwise. ISS BG goal 140-180 Patient due for hemoglobin A1c recheck. Hold off on antibiotics for asymptomatic pyuria, patient not septic. DVT prophylaxis, SCDs If INR less than 2 while Coumadin on hold. Full code. MTDD
[2017-08-11 06:24] LABS: ESTIMATED AVERAGE GLUCOSE 143 mg/dl; HA1C FLAG Normal (Normal)
[2017-08-11 07:05] LABS: INR 2.5 (0.9-1.1); PROTHROMBIN TIME (PATIENT) 27.7 SECONDS (9.0-12.0)
[2017-08-11 07:35] LABS: BASO % 0.5 %; BASO ABS # 0.02 K/uL (0-0.2); EOS % 3.3 %; HEMATOCRIT 28.8 % (37-47); IG% 0.5 %; LYMPH % 23.5 %; LYMPH ABS # 0.99 K/uL (1.2-3.4); MEAN CELL VOLUME 82.5 fL (80-100); MEAN CORPUSCULAR HEMOGLOBIN 24.4 pg (25-34); MEAN CORPUSCULAR HGB CONC 29.5 g/dl (32-36); MEAN PLATELET VOLUME 9.8 fL (7.4-10.4); MONO % 10.9 %; NEUT % 61.3 %; PLATELET COUNT 191 K/uL (130-400); RED BLOOD COUNT 3.49 M/uL (4.2-5.4); WHITE BLOOD COUNT 4.21 K/uL (4.8-10.8)
--- NOTE | 2017-08-11 07:57 | Gastrointestinal Consultation ---
Gastrointestinal Consultation Date of Consultation: Aug 11, 2017 Attending Physician: Ruben Consulting Physician: Lux Reason for Consultation: anemia History of Present Illness Patient is a 62 year old female w/ PMH past significant for history of GI bleed (July, October and December), anemia requiring hospitalization(July, October , December, March), CAD s/p CABG and stent placement, AVR replacement on Coumadin, DMT2, HTN and dyslipidemia who was transferred from [facility] for evaluation of melena and anemia. Pt seen and evaluated, chart reviewed. She has recently established with Dr. Muñoz for liver cirrhosis. Pt presented to [place] for cold and flu like symptoms, basic labs with evidence of anemia. Per pt stools were checked, they were melanotic and heme positive. She has not seen any BRBPR or melena. No epigastric pain, nausea, vomiting. She continues on PPI , coumadin and ASA. Capsule 03/15/17: normal EGD 01/12/17: No fresh or altered blood. No ulcers.Normal esophagus. Normal stomach. There is a hemostatic clip at prior site of gastric polyp removal from July. Colonoscopy 07/27/16: Non-thrombosed external hemorrhoids found on digital rectal exam. One 8 mm polyp in the descending colon. Internal hemorrhoids. The examination was otherwise normal. 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 Status: Acute (3) Severe anemia Status: Acute (4) Symptomatic anemia Status: Acute (5) Upper gastrointestinal bleed Status: Acute Social History Problems: (1) Mechanical heart valve present Status: Acute Past Medical History: arteriosclerotic cardiovascular disease, Asthma, Cirrhosis, Depression, diabetes mellitus, type 2, Dyslipidemia, GERD, VIDHI Past Surgical History: H/O aortic valve replacement, H/O pericardiectomy H/O ventral hernia repair H/O incisional hernia repair H/O of cholecystectomy H/O of tonsillectomy H/O angioplasty with stent Family History FH: CAD (coronary artery disease) BROTHER SISTER Social History Smoking Status: Never Smoker Alcohol Use: none Drug Use: none Marital Status: Occupation Status: retired Allergies Coded Allergies: Erythromycin (Verified Allergy, Mild, 05/26/17) Tetracycline (Verified Allergy, Mild, 05/26/17) Ciprofloxacin (Verified Allergy, Unknown, `, 05/26/17) Hydrocodone (Verified Allergy, Unknown, `, 05/26/17) Sulfa Antibiotics (Verified Allergy, Unknown, Unknown rxn, 05/26/17) Current Medications Home Meds and Scripts Medications Dose Route/Sig Max Daily Dose Days Date Category Dose Instructions Proventil Hfa (Albuterol Sulfate) 108 Mcg/Act Aer 2 Puffs PO Q4 PRN 08/10/17 Reported Inderal (Propranolol HCl) 10 Mg Tab 10 Mg PO BID 08/10/17 Reported Lisinopril 2.5 Mg Tab 2.5 Mg PO QAM 08/10/17 Reported Protonix (Pantoprazole Sodium) 40 Mg Tab 40 Mg PO BID 04/01/17 Reported Aspirin Chewable (Aspirin) 81 Mg Chew 81 Mg PO 3XWK 02/23/17 Reported tuesday/tuesday/tuesday Duoneb (Ipratropium-Albuterol) 3 Ml Nebu 1 Treatment INH QID PRN 02/23/17 Reported K-Tabs (Potassium Chloride) 10 Meq Tabcr 10 Meq PO QPM 02/23/17 Reported Buspirone HCl 5 Mg Tab 5 Mg PO BID PRN 01/10/17 Reported Humalog (Insulin Lispro (Human)) 100 Unit/Ml Inj 20 Units SQ TIDM 01/10/17 Reported Lantus (Insulin Glargine) 100 Unit/Ml Inj 40 Units SC HS 01/10/17 Reported Ultram (Tramadol HCl) 50 Mg Tab 50 Mg PO Q8 PRN 01/10/17 Reported Flonase Allergy Relief (Fluticasone Propionate (Nasal)) 50 Mcg/Act Spr 2 Sprays BENITO DAILY 07/26/16 Reported Zofran (Ondansetron HCl) 4 Mg Tab 4 Mg PO Q6 PRN 07/26/16 Reported Vitamin D3 (Cholecalciferol) 2,000 Unit Cap 2,000 Unit PO DAILY 07/26/16 Reported Venlafaxine Hcl Er (Venlafaxine Hcl) 150 Mg Tab 150 Mg PO QAM 07/26/16 Reported Lipitor (Atorvastatin Calcium) 80 Mg Tab 80 Mg PO HS 07/26/16 Reported Nitrostat (Nitroglycerin) 0.4 Mg Tab 0.4 Mg UT UD PRN 07/26/16 Reported Coumadin (Warfarin Sodium) 4 Mg Tab 4 Mg PO DAILY 07/26/16 Reported Combivent Respimat (Ipratropium-Albuterol) 1 Aer Aer 2 Puffs INH BID 07/26/16 Reported Vitron-C (Iron-Vitamin C) 1 Tab Tab 1 Tab PO BID 02/18/16 Reported Folic Acid 1 Mg Tab 2 Mg PO DAILY 02/18/16 Reported Glucophage (Metformin Hcl) 1,000 Mg Tab 1,000 Mg PO BID 01/24/12 Reported Lasix (Furosemide) 40 Mg Tab 40 Mg PO BID 10/12/06 Reported Micro-K Ext Rel (Potassium Chloride) 10 Meq Capcr 20 Meq PO QAM 10/12/06 Reported Review of Systems Constitutional: No fever, No chills ENT: + nasal symptoms, + sore throat Respiratory: + cough, No shortness of breath Cardiac: No chest pain, No edema Abdomen: + GI bleeding, No pain, No nausea, No vomiting, No diarrhea, No constipation Physical Exam Date Time Temp Pulse Resp B/P (MAP) Pulse Ox O2 Delivery O2 Flow Rate FiO2 08/11/17 07:37 36.7 74 17 116/55 (75) 96 Room Air 08/11/17 05:06 36.9 77 18 137/81 97 08/11/17 04:45 36.8 73 18 135/72 97 08/11/17 04:16 36.9 91 18 114/67 97 08/11/17 04:00 Room Air 08/11/17 03:50 36.9 79 20 131/76 97 08/10/17 23:59 Room Air 08/10/17 22:53 36.9 73 20 131/74 99 Room Air General Appearance: no apparent distress Eyes: PERRL ENT: hearing grossly normal Neck: supple Respiratory/Chest: lungs clear, normal breath sounds Cardiovascular: regular rate, rhythm Abdomen: normal bowel sounds, non tender, soft, no organomegaly Neurologic/Psych: alert, normal mood/affect, oriented x 3 Skin: normal color Laboratory Results Last 24 Hours Test 08/10/17 23:00 08/10/17 23:16 08/11/17 05:56 08/11/17 06:18 Bedside Glucose 237 mg/dl 149 mg/dl Hemoglobin 7.7 g/dL 8.5 g/dL Hematocrit 26.3 % 28.8 % Sodium Level 140 mmol/L Potassium Level 3.7 mmol/L Chloride Level 107 mmol/L Carbon Dioxide Level 28 mmol/L Anion Gap 5.0 mmol/L Blood Urea Nitrogen 6 mg/dl Creatinine 0.52 mg/dl Est Creatinine Clear Calc Drug Dose 100.0 ml/min Estimated GFR () 117.0 Estimated GFR (Non- 101.0 BUN/Creatinine Ratio 12.4 Random Glucose 236 mg/dl Estimated Average Glucose 143 mg/dl Hemoglobin A1c 6.6 % Calcium Level 8.1 mg/dl Magnesium Level 2.1 mg/dl White Blood Count 4.21 K/uL Red Blood Count 3.49 M/uL Mean Corpuscular Volume 82.5 fL Mean Corpuscular Hemoglobin 24.4 pg Mean Corpuscular Hemoglobin Concent 29.5 g/dl Platelet Count 191 K/uL Mean Platelet Volume 9.8 fL Neutrophils (%) (Auto) 61.3 % Lymphocytes (%) (Auto) 23.5 % Monocytes (%) (Auto) 10.9 % Eosinophils (%) (Auto) 3.3 % Basophils (%) (Auto) 0.5 % Neutrophils # (Auto) 2.58 K/uL Lymphocytes # (Auto) 0.99 K/uL Monocytes # (Auto) 0.46 K/uL Eosinophils # (Auto) 0.14 K/uL Basophils # (Auto) 0.02 K/uL RDW Standard Deviation 48.3 fL RDW Coefficient of Variation 16.5 % Immature Granulocyte % (Auto) 0.5 % Immature Granulocyte # (Auto) 0.02 K/uL Prothrombin Time 27.7 SECONDS Prothromb Time International Ratio 2.5 Impression Patient is a 62 year old female with a significant past medical history of GI bleed on anticoagulation (plavix/asa/coumadin for valve). She has had numerous endoscopic evaluations for evaluation of VIDHI and melena. Of note a negative VCE in 2013, negative colonoscopy in July 2016 and a negative EGD in December 2016. Since December, her plavix has been held and she was started on protonix. Continues to be anemic with question of melena and heme + stools. She has black stools that alternate between semi-formed, formed and bouts of loose stools if she uses stool softeners. No BRBPR, hematemesis or coffee ground emesis. Her vitals are stable. She had ice chips at 0500 and sip of water with AM pills. Plan - NPO - EGD today - Additional recommendations pending results of EGD - consider inpatient colonoscopy tomorrow I saw and evaluated the patient. She was transferred from another local hospital due to question of heme positive stools and a prior history of melena. She has a long history of cirrhosis related to a prior history of alcohol use. In the past she's undergone several upper endoscopies and colonoscopies in addition to a capsule endoscopy without a specific etiology. Based on her history we would favor small bowel AVMs given her prior aortic valve replacement in combination with her anticoagulation needs. Physical exam No obvious distress Multiple spider nevi noted, possible small lesions noted on face and arms Impression Patient with a history of heme positive stools and a question of melena. We are happy to do a repeat upper endoscopy as an inpatient to evaluate for an obvious upper GI source. If negative I would suggest that the patient undergo a follow-up colonoscopy as scheduled with her regular GI provider in the near future. She does have a history of dysphagia, however, her INR is currently 2.5 and we cannot do a dilation today. Plan EGD today Please call with any questions or concerns
[2017-08-11] MEDS: INSULIN ASPART 100 UNITS/ML 3 ML PEN SC SCH ×4 (08:23→20:48)
[2017-08-11] MEDS: PROPRANOLOL HCL 10 MG TAB PO SCH ×2 (08:26→20:45)
[2017-08-11] MEDS: BuPROPion XL 150 MG TABCR PO SCH (08:26)
[2017-08-11] MEDS: LISINOPRIL 2.5 MG TAB PO SCH (08:26)
[2017-08-11] MEDS: VENLAFAXINE HCL XR 150 MG CAPXR PO SCH (08:26)
[2017-08-11] MEDS: FLUTICASONE PROPIONATE NA SPR 16 GM BTL NAE SCH (08:26)
[2017-08-11 08:39] LABS: COMPLETE YES; HYPERSEGMENTED POLYS 1+; HYPOCHROMIA PRESENT; POLYCHROMASIA 1+; TOXIC GRANULATION 1+
[2017-08-11] MEDS ORDERED: PROPOFOL IV EMULSION 10 MG/ML 20 ML VIAL IV ONE (08:58)
[2017-08-11] MEDS ORDERED: LIDOCAINE HCL 2% 2 ML VIAL (20MG/ML) ONE (08:58)
[2017-08-11] MEDS ORDERED: INSULIN GLARGINE SOLOSTAR 100 UNITS/ML 3 ML PEN SC SCH ×2 (09:00→21:00)
--- NOTE | 2017-08-11 09:24 | History & Physical Bridge Note ---
H&P Re-Evaluation Bridge Note: I have examined the patient, reviewed the History & Physical and in the interval since the performance of the History & Physical I have noted the following changes of clinical significance: No changes noted. We are planning to do upper endoscopy today due to a question of melena. We have discussed the risks to include bleeding, infection perforation and need for follow-up studies.
--- NOTE | 2017-08-11 09:47 | GI REPORT ---
Procedure Date: 08/11/2017 9:30 AM Procedure: Upper GI endoscopy Indications: Melena Medicines: Monitored Anesthesia Care Complications: No immediate complications. Estimated blood loss: Minimal. Estimated Blood Loss: Estimated blood loss was minimal. Procedure: Pre-Anesthesia Assessment: - Prior to the procedure, a History and Physical was performed, and patient medications, allergies and sensitivities were reviewed. The patient's tolerance of previous anesthesia was reviewed. - The risks and benefits of the procedure and the sedation options and risks were discussed with the patient. All questions were answered and informed consent was obtained. - Patient identification and proposed procedure were verified prior to the procedure by the physician, the nurse and the chlorine cells operator. The procedure was verified in the procedure room. - Pre-procedure physical examination revealed no contraindications to sedation. - ASA Grade Assessment: III - A patient with severe systemic disease. - After reviewing the risks and benefits, the patient was deemed in satisfactory condition to undergo the procedure. - The anesthesia plan was to use monitored anesthesia care (MAC). - Immediately prior to administration of medications, the patient was re-assessed for adequacy to receive sedatives. - The heart rate, respiratory rate, oxygen saturations, blood pressure, adequacy of pulmonary ventilation, and response to care were monitored throughout the procedure. - The physical status of the patient was re-assessed after the procedure. After obtaining informed consent, the endoscope was passed under direct vision. Throughout the procedure, the patient's blood pressure, pulse, and oxygen saturations were monitored continuously. The On-site loaner was introduced through the mouth, and advanced to the third part of duodenum. The upper GI endoscopy was accomplished without difficulty. The patient tolerated the procedure well. Findings: No endoscopic abnormality was evident in the esophagus to explain the patient's complaint of dysphagia. There is no endoscopic evidence of varices in the lower third of the esophagus. Mild portal hypertensive gastropathy was found in the entire examined stomach. Three 3 mm no bleeding angioectasias were found in the gastric body. Coagulation for hemostasis using argon plasma at 1 liter/minute and 20 schumacher was successful. Estimated blood loss was minimal. The examined duodenum was normal. Impression: - No endoscopic esophageal abnormality to explain patient's dysphagia. Dilation not done due to INR of 2.5 - Portal hypertensive gastropathy. - Three non-bleeding angioectasias in the stomach. Treated with argon plasma coagulation (APC). - Normal examined duodenum. - No specimens collected. Recommendation: - [facility] care. - Advance diet as tolerated today. - Use Protonix (pantoprazole) 40 mg PO daily. - Use sucralfate tablets 1 gram PO BID for 4 weeks. - Outpatient colonsocopy with Dr. Muñoz in 6 to 8 weeks (follwo-up for polyps) - Repeat EGD in 6 to 8 weeks for empiric esopahgeal dilation if dysphagia persists. Luiz Wasserman D.O. Luiz Wasserman, 08/11/2017 9:47:35 AM This report has been signed electronically. Note Initiated On: 08/11/2017 9:30 AM I attest to the content of the Intraoperative Record and orders documented therein, exceptions below
--- NOTE | 2017-08-11 10:00 | Anesthesiology Progress Note ---
Anesthesia Post Op Note Date & Time Aug 11, 2017 at 10:00 Vital Signs Pain Intensity: 0 Vital Signs Past 12 Hours Date Time Temp Pulse Resp B/P (MAP) Pulse Ox O2 Delivery O2 Flow Rate FiO2 08/11/17 09:54 83 16 132/71 (91) 96 Room Air 08/11/17 09:39 77 16 107/67 (80) 96 Room Air 08/11/17 09:10 Room Air 08/11/17 09:08 37.1 76 18 148/82 (104) 96 Room Air 08/11/17 07:37 36.7 74 17 116/55 (75) 96 Room Air 08/11/17 05:06 36.9 77 18 137/81 97 08/11/17 04:45 36.8 73 18 135/72 97 08/11/17 04:16 36.9 91 18 114/67 97 08/11/17 04:00 Room Air 08/11/17 03:50 36.9 79 20 131/76 97 08/10/17 23:59 Room Air 08/10/17 22:53 36.9 73 20 131/74 99 Room Air Notes Mental Status: alert / awake / arousable, participated in evaluation Pt Amnestic to Procedure: Yes Nausea / Vomiting: adequately controlled Pain: adequately controlled Airway Patency, RR, SpO2: stable & adequate BP & HR: stable & adequate Hydration State: stable & adequate Anesthetic Complications: no major complications apparent
--- NOTE | 2017-08-11 10:53 | Progress Note ---
Progress Note Date of Service Aug 11, 2017. Progress Note Upper endoscopy completed today. Please see formal procedure note for full details. Findings Portal gastropathy No esophageal varices 3 small AVMs in the stomach, treated with argon plasma quadrant dilation Recommendations Advance diet as tolerated Protonix or omeprazole 40 mg per day Carafate slurry twice daily for 4 weeks Patient to have follow-up studies with Dr. Muñoz as OP Please call with any questions or concerns
[2017-08-11 12:27] LABS: HEMATOCRIT 29.8 % (37-47)
[2017-08-11] MEDS: AMOXICILLIN/CLAVULANATE TAB 875 MG TAB PO SCH (17:01)
--- NOTE | 2017-08-11 19:12 | Progress Note ---
Medicine Progress Note Date & Time of Visit: Aug 11, 2017 at 19:00 . Subjective Admitted last evening due to anemia with heme-positive stools. Transfuse with 1 unit packed RBCs. Underwent EGD this morning without difficulty; findings as noted below. No chest pain. No cough or shortness of breath. No nausea or vomiting. Stools remain dark; no gross bleeding. . Objective Last 8 Hrs Date Time Temp Pulse Resp B/P (MAP) Pulse Ox O2 Delivery O2 Flow Rate FiO2 08/11/17 16:00 Room Air 08/11/17 15:32 36.9 75 18 132/78 (96) 94 Room Air 08/11/17 12:01 Room Air Physical Exam: General- no distress Neck- no JVD Lungs- clear to auscultation Heart- regular, mechanical aortic -b-[id number]-l- -a-i-y-n-d-s- valve sounds [error , corrected BRANDT 08/14/17] Abdomen- bowel sounds, soft, nontender Extremities- no pretibial edema or calf tenderness Neuro- alert . Laboratory Results: Last 24 Hours Test 08/10/17 23:00 08/10/17 23:16 08/11/17 05:56 08/11/17 06:18 Bedside Glucose 237 mg/dl 149 mg/dl Hemoglobin 7.7 g/dL 8.5 g/dL Hematocrit 26.3 % 28.8 % Sodium Level 140 mmol/L Potassium Level 3.7 mmol/L Chloride Level 107 mmol/L Carbon Dioxide Level 28 mmol/L Anion Gap 5.0 mmol/L Blood Urea Nitrogen 6 mg/dl Creatinine 0.52 mg/dl Est Creatinine Clear Calc Drug Dose 100.0 ml/min Estimated GFR () 117.0 Estimated GFR (Non- 101.0 BUN/Creatinine Ratio 12.4 Random Glucose 236 mg/dl Estimated Average Glucose 143 mg/dl Hemoglobin A1c 6.6 % Calcium Level 8.1 mg/dl Magnesium Level 2.1 mg/dl White Blood Count 4.21 K/uL Red Blood Count 3.49 M/uL Mean Corpuscular Volume 82.5 fL Mean Corpuscular Hemoglobin 24.4 pg Mean Corpuscular Hemoglobin Concent 29.5 g/dl Platelet Count 191 K/uL Mean Platelet Volume 9.8 fL Neutrophils (%) (Auto) 61.3 % Lymphocytes (%) (Auto) 23.5 % Monocytes (%) (Auto) 10.9 % Eosinophils (%) (Auto) 3.3 % Basophils (%) (Auto) 0.5 % Neutrophils # (Auto) 2.58 K/uL Lymphocytes # (Auto) 0.99 K/uL Monocytes # (Auto) 0.46 K/uL Eosinophils # (Auto) 0.14 K/uL Basophils # (Auto) 0.02 K/uL RDW Standard Deviation 48.3 fL RDW Coefficient of Variation 16.5 % Immature Granulocyte % (Auto) 0.5 % Immature Granulocyte # (Auto) 0.02 K/uL Hypersegmented Polys 1+ Toxic Granulation 1+ Polychromasia 1+ Hypochromasia PRESENT Prothrombin Time 27.7 SECONDS Prothromb Time International Ratio 2.5 Test 08/11/17 10:45 08/11/17 12:01 08/11/17 16:11 08/11/17 18:51 Bedside Glucose 141 mg/dl 217 mg/dl Hemoglobin 8.9 g/dL Hematocrit 29.8 % Assessment & Plan ANEMIA / HEME + STOOLS Hemoglobin 7.7 at time of admission. Anemia secondary to chronic GI blood loss. Requires chronic anticoagulation due to mechanical aortic valve replacement. Underwent EGD this morning; found to have nonbleeding esophageal varices, mild portal hypertensive gastropathy, few nonbleeding AVM's which were cauterized. PPI and sucralfate recommended by GI. Continue parenteral iron therapy as outpatient. Hgb this morning = 8.5. Transfuse as necessary to maintain adequate H/H; seems to be comfortable with hemoglobin > 8. CORONARY ARTERY DISEASE S/P PCI. No anginal symptoms. Continue metoprolol, statin. Resume low dose aspirin tomorrow. CHRONIC DIASTOLIC CHF Compensated. S/P AORTIC VALVE REPLACEMENT Continue warfarin. DM TYPE 2 Well-controlled. Hemoglobin A1c 6.6. Fasting blood sugar this morning 149. Metformin held. Received insulin per protocol. VTE PROPHYLAXIS On warfarin. Ambulating. DISPOSITION Expected discharge to home. Internal Medicine follow-up with Dr. Melo. . Current Inpatient Medications: Current Inpatient Medications Medications (Trade) Dose Ordered Sig/[place] Route Start Time Stop Time Status Last Admin Dose Admin Acetaminophen (Tylenol Tab) 650 mg Q4H PRN PO 08/10/17 23:45 09/09/17 23:44 Nitroglycerin (Nitrostat Tab) 0.4 mg UD PRN SL 08/10/17 23:45 09/09/17 23:44 Insulin Aspart (novoLOG ASPART) SLIDING SCALE If C... ACHS SC 08/11/17 07:00 09/10/17 06:59 08/11/17 17:04 2 UNITS Glucose (Glucose 40% Gel) 15-30 GRAMS 15 GRAMS... UD PRN PO 08/10/17 23:45 09/09/17 23:44 Glucose (Glucose Chew Tab) 4-8 Tablets 4 Tabl... UD PRN PO 08/10/17 23:45 09/09/17 23:44 Dextrose (Dextrose 50% 50ML Syringe) 25-50ML OF 50% DW IV FOR... UD PRN IV 08/10/17 23:45 09/09/17 23:44 Glucagon (Glucagon Inj) 1 mg UD PRN SQ 08/10/17 23:45 09/09/17 23:44 Pantoprazole Sodium 40 mg/ Dextrose 100 ml @ 20 mls/hr Q5H IV 08/11/17 00:15 09/10/17 00:14 08/11/17 15:57 20 MLS/HR Lactated Ringer's 1,000 ml @ 40 mls/hr Q24H IV 08/11/17 00:00 09/10/17 00:00 08/11/17 00:43 40 MLS/HR Amoxicillin/ Clavulanate Potassium (Augmentin Tab) 875 mg BIDM PO 08/11/17 16:45 08/18/17 16:44 08/11/17 17:01 875 MG Albuterol/ Ipratropium (Duoneb) 3 ml Q2H PRN INH 08/11/17 00:15 09/10/17 00:14 Tramadol HCl (Ultram Tab) not relieved by tylenol @ Q6H PRN PO 08/11/17 00:30 09/10/17 00:29 08/11/17 08:31 25 MG Morphine Sulfate (MoRPHine SULFATE INJ) 4 mg Q3H PRN IV 08/11/17 00:30 08/25/17 00:29 Ondansetron HCl (Zofran Inj) 4 mg Q6H PRN IV 08/11/17 00:30 09/10/17 00:29 Lorazepam (Ativan Inj) 0.5 mg Q4H PRN IV 08/11/17 00:30 09/10/17 00:29 Buspirone HCl (Buspar Tab) 5 mg BID PRN PO 08/11/17 03:15 09/10/17 03:14 Fluticasone Propionate (Flonase Nasal [place]) 2 sprays DAILY BENITO 08/11/17 09:00 09/10/17 08:59 08/11/17 08:26 2 SPRAYS Folic Acid (Folvite Tab) 2 mg DAILY PO 08/11/17 09:00 09/10/17 08:59 08/11/17 08:26 2 MG Lisinopril (Zestril Tab) 2.5 mg QAM PO 08/11/17 09:00 09/10/17 08:59 08/11/17 08:26 2.5 MG Propranolol HCl (Inderal Tab) 10 mg BID PO 08/11/17 09:00 09/10/17 08:59 08/11/17 08:26 10 MG Venlafaxine HCl (effeXOR EXTENDED REL CAP) 150 mg QAM PO 08/11/17 09:00 09/10/17 08:59 08/11/17 08:26 150 MG Bupropion HCl (Wellbutrin-Xl Tab) 150 mg DAILY PO 08/11/17 09:00 09/10/17 08:59 08/11/17 08:26 150 MG Atorvastatin Calcium (Lipitor Tab) 80 mg HS PO 08/11/17 21:00 09/10/17 20:59 Insulin Glargine (Lantus Solostar Pen) 5 units HS SC 08/11/17 21:00 09/10/17 08:59 Sucralfate (Carafate Susp) 1 gm BID PO 08/11/17 21:00 09/10/17 20:59
[2017-08-11 19:14] LABS: HEMATOCRIT 29.8 % (37-47)
[2017-08-11] MEDS: SUCRALFATE 1 GM/10 ML UDC PO SCH (20:44)
[2017-08-11] MEDS: PANTOprazole INJ 40 MG in SYRINGE 0 ML IV SCH (20:44)
[2017-08-11] MEDS ORDERED: SIMVASTATIN 40 MG TAB PO SCH (21:00)
[2017-08-11] MEDS ORDERED: ATORVASTATIN 40 MG TAB PO SCH (21:00)
[2017-08-12 03:55] VITALS: BP 134/72; PULSE 80; TEMP 36.6; O2SAT 95
[2017-08-12 06:47] LABS: BASO % 0.2 %; BASO ABS # 0.01 K/uL (0-0.2); COMPLETE YES; EOS % 3.2 %; HEMATOCRIT 31.1 % (37-47); IG% 0.2 %; LYMPH % 20.3 %; MEAN CELL VOLUME 82.7 fL (80-100); MEAN CORPUSCULAR HEMOGLOBIN 24.7 pg (25-34); MEAN CORPUSCULAR HGB CONC 29.9 g/dl (32-36); MEAN PLATELET VOLUME 9.6 fL (7.4-10.4); MONO % 10.8 %; NEUT % 65.3 %; PLATELET COUNT 175 K/uL (130-400); RED BLOOD COUNT 3.76 M/uL (4.2-5.4); WHITE BLOOD COUNT 4.43 K/uL (4.8-10.8)
[2017-08-12] MEDS ORDERED: INSULIN GLARGINE SOLOSTAR 100 UNITS/ML 3 ML PEN SC SCH (07:30)
[2017-08-12 07:51] VITALS: BP 119/57; PULSE 67; TEMP 36.6; O2SAT 96
[2017-08-12 08:00] VITALS: O2SAT 95
[2017-08-12 08:03] LABS: INR 1.6 (0.9-1.1); PROTHROMBIN TIME (PATIENT) 17.2 SECONDS (9.0-12.0)
[2017-08-12] MEDS: INSULIN ASPART 100 UNITS/ML 3 ML PEN SC SCH ×2 (08:25→11:31)
[2017-08-12] MEDS: PANTOprazole INJ 40 MG in SYRINGE 0 ML IV SCH (08:26)
[2017-08-12] MEDS: AMOXICILLIN/CLAVULANATE TAB 875 MG TAB PO SCH (08:26)
[2017-08-12] MEDS: SUCRALFATE 1 GM/10 ML UDC PO SCH (08:27)
[2017-08-12] MEDS: FLUTICASONE PROPIONATE NA SPR 16 GM BTL NAE SCH (08:27)
[2017-08-12] MEDS: VENLAFAXINE HCL XR 150 MG CAPXR PO SCH (08:28)
[2017-08-12] MEDS: PROPRANOLOL HCL 10 MG TAB PO SCH (08:28)
[2017-08-12] MEDS: BuPROPion XL 150 MG TABCR PO SCH (08:29)
[2017-08-12] MEDS: LISINOPRIL 2.5 MG TAB PO SCH (08:29)
[2017-08-12] MEDS ORDERED: ASPIRIN 81 MG ECTAB PO SCH (09:00)
--- NOTE | 2017-08-12 09:29 | Gastroenterology Progress Note ---
Progress Note Date of Service: Aug 12, 2017 Subjective Pt evaluation today including: conversation w/ patient, physical exam, chart review, lab review Pt seen and examined, chart reviewed. She offers no complaints and wants to go home. Denies any melena or BRB. No fever, chills, CP, SOB EGD 08/12/17: Portal gastropathy No esophageal varices 3 small AVMs in the stomach, treated with argon plasma quadrant dilation Review of Systems Constitutional: No fever, No chills Respiratory: No cough, No shortness of breath Cardiac: No chest pain Abdomen: No pain, No nausea, No vomiting, No diarrhea Medications Current Inpatient Medications Medications (Trade) Dose Ordered Sig/Lee [place] Route Start Time Stop Time Status Last Admin Dose Admin Acetaminophen (Tylenol Tab) 650 mg Q4H PRN PO 08/10/17 23:45 09/09/17 23:44 Nitroglycerin (Nitrostat Tab) 0.4 mg UD PRN SL 08/10/17 23:45 09/09/17 23:44 Insulin Aspart (novoLOG ASPART) SLIDING SCALE If C... ACHS SC 08/11/17 07:00 09/10/17 06:59 08/12/17 08:25 1 UNITS Glucose (Glucose 40% Gel) 15-30 GRAMS 15 GRAMS... UD PRN PO 08/10/17 23:45 09/09/17 23:44 Glucose (Glucose Chew Tab) 4-8 Tablets 4 Tabl... UD PRN PO 08/10/17 23:45 09/09/17 23:44 Dextrose (Dextrose 50% 50ML Syringe) 25-50ML OF 50% DW IV FOR... UD PRN IV 08/10/17 23:45 09/09/17 23:44 Glucagon (Glucagon Inj) 1 mg UD PRN SQ 08/10/17 23:45 09/09/17 23:44 Amoxicillin/ Clavulanate Potassium (Augmentin Tab) 875 mg BIDM PO 08/11/17 16:45 08/18/17 16:44 08/12/17 08:26 875 MG Albuterol/ Ipratropium (Duoneb) 3 ml Q2H PRN INH 08/11/17 00:15 09/10/17 00:14 Tramadol HCl (Ultram Tab) not relieved by tylenol @ Q6H PRN PO 08/11/17 00:30 09/10/17 00:29 08/11/17 08:31 25 MG Morphine Sulfate (MoRPHine SULFATE INJ) 4 mg Q3H PRN IV 08/11/17 00:30 08/25/17 00:29 Ondansetron HCl (Zofran Inj) 4 mg Q6H PRN IV 08/11/17 00:30 09/10/17 00:29 Lorazepam (Ativan Inj) 0.5 mg Q4H PRN IV 08/11/17 00:30 09/10/17 00:29 Buspirone HCl (Buspar Tab) 5 mg BID PRN PO 08/11/17 03:15 09/10/17 03:14 Fluticasone Propionate (Flonase Nasal [place]) 2 sprays DAILY BENITO 08/11/17 09:00 09/10/17 08:59 08/12/17 08:27 2 SPRAYS Folic Acid (Folvite Tab) 2 mg DAILY PO 08/11/17 09:00 09/10/17 08:59 08/12/17 08:28 2 MG Lisinopril (Zestril Tab) 2.5 mg QAM PO 08/11/17 09:00 09/10/17 08:59 08/12/17 08:29 2.5 MG Propranolol HCl (Inderal Tab) 10 mg BID PO 08/11/17 09:00 09/10/17 08:59 08/12/17 08:28 10 MG Venlafaxine HCl (effeXOR EXTENDED REL CAP) 150 mg QAM PO 08/11/17 09:00 09/10/17 08:59 08/12/17 08:28 150 MG Bupropion HCl (Wellbutrin-Xl Tab) 150 mg DAILY PO 08/11/17 09:00 09/10/17 08:59 08/12/17 08:29 150 MG Atorvastatin Calcium (Lipitor Tab) 80 mg HS PO 08/11/17 21:00 09/10/17 20:59 08/11/17 20:45 80 MG Insulin Glargine (Lantus Solostar Pen) 5 units HS SC 08/11/17 21:00 09/10/17 08:59 08/11/17 20:49 5 UNITS Sucralfate (Carafate Susp) 1 gm BID PO 08/11/17 21:00 09/10/17 20:59 08/12/17 08:27 1 GM Pantoprazole Sodium 40 mg/ Syringe 10 ml @ 5 mls/min DAILY@, IV 08/11/17 21:00 09/10/17 20:59 08/12/17 08:26 5 MLS/MIN Aspirin (Ecotrin Tab) 81 mg QAM PO 08/12/17 09:00 09/11/17 08:59 08/12/17 08:27 81 MG Objective Vital Signs Date Time Temp Pulse Resp B/P (MAP) Pulse Ox O2 Delivery O2 Flow Rate FiO2 08/12/17 07:51 36.6 67 20 119/57 (77) 96 Room Air 08/12/17 04:00 Room Air 08/12/17 03:55 36.6 80 16 134/72 (92) 95 Room Air 08/12/17 00:01 Room Air 08/11/17 23:50 36.8 74 18 152/78 (102) 95 Room Air 08/11/17 20:00 Room Air 08/11/17 19:41 37.0 74 18 136/81 (99) 95 Room Air 08/11/17 16:00 Room Air 08/11/17 15:32 36.9 75 18 132/78 (96) 94 Room Air 08/11/17 12:01 Room Air 08/11/17 10:48 36.6 74 18 161/74 (103) 96 Room Air 08/11/17 10:09 78 16 140/89 (106) 97 Room Air 08/11/17 09:54 83 16 132/71 (91) 96 Room Air 08/11/17 09:39 77 16 107/67 (80) 96 Room Air Physical Exam General Appearance: no apparent distress Eyes: PERRL ENT: hearing grossly normal Neck: supple Respiratory/Chest: lungs clear, normal breath sounds Cardiovascular: regular rate, rhythm Abdomen: normal bowel sounds, non tender, soft Neurologic/Psych: alert, normal mood/affect, oriented x 3 Skin: normal color Laboratory Results Last 24 Hours Test 08/11/17 10:45 08/11/17 12:01 08/11/17 16:11 08/11/17 18:51 Bedside Glucose 141 mg/dl 217 mg/dl Hemoglobin 8.9 g/dL 8.9 g/dL Hematocrit 29.8 % 29.8 % Test 08/11/17 20:42 08/12/17 06:10 08/12/17 06:51 08/12/17 07:42 Bedside Glucose 278 mg/dl 210 mg/dl White Blood Count 4.43 K/uL Red Blood Count 3.76 M/uL Hemoglobin 9.3 g/dL Hematocrit 31.1 % Mean Corpuscular Volume 82.7 fL Mean Corpuscular Hemoglobin 24.7 pg Mean Corpuscular Hemoglobin Concent 29.9 g/dl Platelet Count 175 K/uL Mean Platelet Volume 9.6 fL Neutrophils (%) (Auto) 65.3 % Lymphocytes (%) (Auto) 20.3 % Monocytes (%) (Auto) 10.8 % Eosinophils (%) (Auto) 3.2 % Basophils (%) (Auto) 0.2 % Neutrophils # (Auto) 2.89 K/uL Lymphocytes # (Auto) 0.90 K/uL Monocytes # (Auto) 0.48 K/uL Eosinophils # (Auto) 0.14 K/uL Basophils # (Auto) 0.01 K/uL RDW Standard Deviation 49.3 fL RDW Coefficient of Variation 17.3 % Immature Granulocyte % (Auto) 0.2 % Immature Granulocyte # (Auto) 0.01 K/uL Prothrombin Time 17.2 SECONDS Prothromb Time International Ratio 1.6 Assessment and Plan Advance diet as tolerated Protonix or omeprazole 40 mg per day Carafate slurry twice daily for 4 weeks Patient to have follow-up studies with Dr. Muñoz as OP GI to sign off, please call with any questions or concerns Patient not available during afternoon rounds -- agree with recomendations as above.
[2017-08-12 11:46] VITALS: BP 163/73; PULSE 70; TEMP 36.8; O2SAT 97
--- NOTE | 2017-08-12 15:29 | Progress Note ---
Medicine Progress Note Date & Time of Visit: Aug 12, 2017 at 15:29 . Subjective Doing well. Ambulating in hallway. No CP or SOB. No abdominal pain, nausea, vomiting. Stools intermittently dark. No urinary symptoms. . Objective Last 8 Hrs Date Time Temp Pulse Resp B/P (MAP) Pulse Ox O2 Delivery O2 Flow Rate FiO2 08/12/17 12:00 Room Air 08/12/17 11:46 36.8 70 18 163/73 (103) 97 Room Air 08/12/17 08:00 95 Room Air 08/12/17 07:51 36.6 67 20 119/57 (77) 96 Room Air Physical Exam: General- no distress Neck- no JVD Lungs- clear to auscultation Heart- regular, mechanical aortic valve sounds Abdomen- bowel sounds, soft, nontender Extremities- no pretibial edema or calf tenderness Neuro- alert . Laboratory Results: Last 24 Hours Test 08/11/17 16:11 08/11/17 18:51 08/11/17 20:42 08/12/17 06:10 Bedside Glucose 217 mg/dl 278 mg/dl Hemoglobin 8.9 g/dL 9.3 g/dL Hematocrit 29.8 % 31.1 % White Blood Count 4.43 K/uL Red Blood Count 3.76 M/uL Mean Corpuscular Volume 82.7 fL Mean Corpuscular Hemoglobin 24.7 pg Mean Corpuscular Hemoglobin Concent 29.9 g/dl Platelet Count 175 K/uL Mean Platelet Volume 9.6 fL Neutrophils (%) (Auto) 65.3 % Lymphocytes (%) (Auto) 20.3 % Monocytes (%) (Auto) 10.8 % Eosinophils (%) (Auto) 3.2 % Basophils (%) (Auto) 0.2 % Neutrophils # (Auto) 2.89 K/uL Lymphocytes # (Auto) 0.90 K/uL Monocytes # (Auto) 0.48 K/uL Eosinophils # (Auto) 0.14 K/uL Basophils # (Auto) 0.01 K/uL RDW Standard Deviation 49.3 fL RDW Coefficient of Variation 17.3 % Immature Granulocyte % (Auto) 0.2 % Immature Granulocyte # (Auto) 0.01 K/uL Test 08/12/17 06:51 08/12/17 07:42 08/12/17 11:10 Bedside Glucose 210 mg/dl 287 mg/dl Prothrombin Time 17.2 SECONDS Prothromb Time International Ratio 1.6 Assessment & Plan ANEMIA / HEME + STOOLS Hemoglobin 7.7 at time of admission. Anemia secondary to chronic GI blood loss. Requires chronic anticoagulation due to mechanical aortic valve replacement. GI consulted. Underwent EGD 08/11; found to have nonbleeding esophageal varices, mild portal hypertensive gastropathy, few nonbleeding AVM's which were cauterized. PPI and sucralfate recommended by GI. Continue parenteral iron therapy as outpatient. Hgb this morning = 9.3. Continue weekly H/H. Transfuse as necessary to maintain adequate H/H; seems to be comfortable with hemoglobin > 8. CORONARY ARTERY DISEASE S/P PCI. No anginal symptoms. Continue metoprolol, statin. Resume low dose aspirin tomorrow. CHRONIC DIASTOLIC CHF Compensated. S/P AORTIC VALVE REPLACEMENT Warfarin held for 2 days due to GI bleeding. INR today 1.6. Resume warfarin at usual dose. Recheck INR next week in Anticoagulation Clinic. DM TYPE 2 Well-controlled. Hemoglobin A1c 6.6. Fasting blood sugar this morning 210. Metformin held. Received insulin per protocol. Discharge on usual regimen. VTE PROPHYLAXIS On warfarin. Ambulating. DISPOSITION Discharge to home. Internal Medicine follow-up with Dr. Melo. . Consultants: GI . Procedures: cardiac monitoring transfusion 1 unit pRBC's EGD . Current Inpatient Medications: Current Inpatient Medications Medications (Trade) Dose Ordered Sig/Lee Ann Route Start Time Stop Time Status Last Admin Dose Admin Acetaminophen (Tylenol Tab) 650 mg Q4H PRN PO 08/10/17 23:45 09/09/17 23:44 Nitroglycerin (Nitrostat Tab) 0.4 mg UD PRN SL 08/10/17 23:45 09/09/17 23:44 Insulin Aspart (novoLOG ASPART) SLIDING SCALE If C... ACHS SC 08/11/17 07:00 09/10/17 06:59 08/12/17 11:31 5 UNITS Glucose (Glucose 40% Gel) 15-30 GRAMS 15 GRAMS... UD PRN PO 08/10/17 23:45 09/09/17 23:44 Glucose (Glucose Chew Tab) 4-8 Tablets 4 Tabl... UD PRN PO 08/10/17 23:45 09/09/17 23:44 Dextrose (Dextrose 50% 50ML Syringe) 25-50ML OF 50% DW IV FOR... UD PRN IV 08/10/17 23:45 09/09/17 23:44 Glucagon (Glucagon Inj) 1 mg UD PRN SQ 08/10/17 23:45 09/09/17 23:44 Amoxicillin/ Clavulanate Potassium (Augmentin Tab) 875 mg BIDM PO 08/11/17 16:45 08/18/17 16:44 08/12/17 08:26 875 MG Albuterol/ Ipratropium (Duoneb) 3 ml Q2H PRN INH 08/11/17 00:15 09/10/17 00:14 Tramadol HCl (Ultram Tab) not relieved by tylenol @ Q6H PRN PO 08/11/17 00:30 09/10/17 00:29 08/11/17 08:31 25 MG Morphine Sulfate (MoRPHine SULFATE INJ) 4 mg Q3H PRN IV 08/11/17 00:30 08/25/17 00:29 Ondansetron HCl (Zofran Inj) 4 mg Q6H PRN IV 08/11/17 00:30 09/10/17 00:29 Lorazepam (Ativan Inj) 0.5 mg Q4H PRN IV 08/11/17 00:30 09/10/17 00:29 Buspirone HCl (Buspar Tab) 5 mg BID PRN PO 08/11/17 03:15 09/10/17 03:14 Fluticasone Propionate (Flonase Nasal [place]) 2 sprays DAILY BENITO 08/11/17 09:00 09/10/17 08:59 08/12/17 08:27 2 SPRAYS Folic Acid (Folvite Tab) 2 mg DAILY PO 08/11/17 09:00 09/10/17 08:59 08/12/17 08:28 2 MG Lisinopril (Zestril Tab) 2.5 mg QAM PO 08/11/17 09:00 09/10/17 08:59 08/12/17 08:29 2.5 MG Propranolol HCl (Inderal Tab) 10 mg BID PO 08/11/17 09:00 09/10/17 08:59 08/12/17 08:28 10 MG Venlafaxine HCl (effeXOR EXTENDED REL CAP) 150 mg QAM PO 08/11/17 09:00 09/10/17 08:59 08/12/17 08:28 150 MG Bupropion HCl (Wellbutrin-Xl Tab) 150 mg DAILY PO 08/11/17 09:00 09/10/17 08:59 08/12/17 08:29 150 MG Atorvastatin Calcium (Lipitor Tab) 80 mg HS PO 08/11/17 21:00 09/10/17 20:59 08/11/17 20:45 80 MG Insulin Glargine (Lantus Solostar Pen) 5 units HS SC 08/11/17 21:00 09/10/17 08:59 08/11/17 20:49 5 UNITS Sucralfate (Carafate Susp) 1 gm BID PO 08/11/17 21:00 09/10/17 20:59 08/12/17 08:27 1 GM Pantoprazole Sodium 40 mg/ Syringe 10 ml @ 5 mls/min DAILY@ IV 08/11/17 21:00 09/10/17 20:59 08/12/17 08:26 5 MLS/MIN Aspirin (Ecotrin Tab) 81 mg QAM PO 08/12/17 09:00 09/11/17 08:59 08/12/17 08:27 81 MG
[2017-08-12 15:30] VITALS: BP 163/73; PULSE 70; TEMP 36.8; O2SAT 97
--- NOTE | 2017-08-12 15:39 | Discharge Instructions ---
Discharge Instructions Date of Service Aug 12, 2017. Admission Reason for Admission: anemia . Discharge Discharge Diagnosis / Problem: anemia Discharge Goals Goal(s): Improve disease control Activity Recommendations Activity Limitations: resume your previous activity . Instructions / Follow-Up Instructions / Follow-Up FOLLOW-UP APPOINTMENTS: INTERNAL MEDICINE 08/16/2017 3:00 PM Luis Melo, DO OTHER INSTRUCTIONS: Resume warfarin (Coumadin) this evening with your usual dosing routine. Have labs checked next week- hemoglobin level and INR. Seek medical attention if you have: * temperature above 101 * chest pain or trouble breathing * abdominal pain, nausea, vomiting * diarrhea, dark stools or bloody stools * any unanswered questions or concerns Call 911 if symptoms are severe. Call if you have any questions or problems. My cell # is [phone]. You can also reach a [facility] hospitalist on duty at [facility] 24 hours a day by calling [phone]. Please take good care of yourself. Leobardo Miranda . Current Hospital Diet Patient's current hospital diet: Diabetes Type 2 Diet, AHA Diet (Heart Healthy) Discharge Diet Recommended Diet: AHA Diet (Heart Healthy), Diabetes Type 2 Diet Pending Studies Studies pending at discharge: no Laboratory Results Hemoglobin A1c Test 08/10/17 23:16 Range/Units Estimated Average Glucose 143 mg/dl Hemoglobin A1c 6.6 H 4.5-5.6 % Medical Emergencies . Who to Call and When: Medical Emergencies: If at any time you feel your situation is an emergency, please call 911 immediately. . Non-Emergent Contact Non-Emergency issues call your: Primary Care Provider, Production Welding Supervisor, Hospital Doctor . . "Provider Documentation" section prepared by Leobardo Miranda. . VTE Core Measure Inpt VTE Proph given/why not?: Warfarin (Coumadin), SCD's
[2017-08-14] MEDS ORDERED: CRFUDL PO (07:46)
--- NOTE | 2017-08-14 07:52 | Discharge Summary ---
Discharge Summary Date of Service Aug 14, 2017. Discharge Summary Admission Date: Aug 10, 2017 at 22:14 Discharge Date: Aug 12, 2017 Discharge Disposition: Home Principal Diagnosis: anemia- acute on chronic chronic / intermittent GI blood loss . Secondary Diagnoses/Problems: Chronic and Resolved Medical Problems: (1) ASCVD (arteriosclerotic cardiovascular disease) Status: Chronic (2) Asthma Status: Chronic (3) Cirrhosis Status: Chronic (4) Depression Status: Chronic (5) DM type 2 (diabetes mellitus, type 2) Status: Chronic (6) Dyslipidemia Status: Chronic (7) GERD (gastroesophageal reflux disease) Status: Chronic (8) VIDHI (iron deficiency anemia) Status: Chronic Surgical Problems: (1) H/O aortic valve replacement Status: Chronic (2) H/O pericardiectomy Status: Chronic (3) H/O ventral hernia repair Status: Chronic (4) History of incisional hernia repair Status: Chronic (5) Hx of cholecystectomy Status: Chronic (6) Hx of tonsillectomy Status: Chronic (7) S/P angioplasty with stent Status: Chronic . Procedures: cardiac monitoring transfusion 1 unit pRBC's EGD . Consultations: GI . Medication Reconciliation New Medications: Sucralfate (Sucralfate) 1 Gm/10 Ml Susp 2 TSP PO BID for 30 Days, #1 BTL Continued Medications: Albuterol Sulfate (Proventil Hfa) 108 Mcg/Act Aer 2 PUFFS PO Q4 PRN for Wheezing Aspirin (Aspirin Chewable) 81 Mg Chew 81 MG PO 3XWK tuesday/tuesday/tuesday Atorvastatin (Lipitor) 80 Mg Tab 80 MG PO HS, TAB Buspirone HCl (Buspirone HCl) 5 Mg Tab 5 MG PO BID PRN for Anxiety Cholecalciferol (Vitamin D3) 2,000 Unit Cap 2000 UNIT PO DAILY, 3 Refills Fluticasone Propionate (Nasal) (Flonase Allergy Relief) 50 Mcg/Act Spr 2 SPRAYS BENITO DAILY Folic Acid (Folic Acid) 1 Mg Tab 2 MG PO DAILY Furosemide (Lasix) 40 Mg Tab 40 MG PO BID Insulin Glargine (Lantus) 100 Unit/Ml Inj 40 UNITS SC HS, VIAL Insulin Lispro (Human) (Humalog) 100 Unit/Ml Inj 20 UNITS SQ TIDM Ipratropium-Albuterol (Combivent Respimat) 1 Aer Aer 2 PUFFS INH BID, INH Ipratropium-Albuterol (Duoneb) 3 Ml Nebu 1 TREATMENT INH QID PRN for SOB/Wheezing, INHA Iron-Vitamin C (Vitron-C) 1 Tab Tab 1 TAB PO BID Lisinopril (Lisinopril) 2.5 Mg Tab 2.5 MG PO QAM Metformin Hcl (Glucophage) 1,000 Mg Tab 1000 MG PO BID Nitroglycerin (Nitrostat) 0.4 Mg Tab 0.4 MG UT UD PRN for Chest Pain, BTL Ondansetron Hcl (Zofran) 4 Mg Tab 4 MG PO Q6 PRN for Nausea Pantoprazole (Protonix) 40 Mg Tab 40 MG PO BID, #30 TAB Potassium Chloride (Micro-K Ext Rel) 10 Meq Capcr 20 MEQ PO QAM Potassium Chloride (K-Tabs) 10 Meq Tabcr 10 MEQ PO QPM Propranolol (Inderal) 10 Mg Tab 10 MG PO BID, TAB Tramadol (Ultram) 50 Mg Tab 50 MG PO Q8 PRN for Pain Venlafaxine Hcl (Venlafaxine Hcl Er) 150 Mg Tab 150 MG PO QAM, 2 Refills Warfarin Sodium (Coumadin) 4 Mg Tab 0 PO UD Dose as of 08/05/17: 6 mg Tuesday and Tuesday 4 mg Tuesday, Tuesday, , Tuesday, Tuesday Admission Information HPI (per Admitting provider): History obtained from patient and records. Medical history significant for coronary artery disease, chronic left bundle branch block, aortic stenosis status post mechanical AVR, on Coumadin, hypertension, hyperlipidemia, COPD as per records, MARIAH on CPAP, cirrhosis secondary to nonalcoholic fatty liver disease, chronic anemia (baseline hemoglobin of 8), DM2, insulin requiring. Recent confinement last March 2017 for symptomatic anemia. Patient noted to be heme positive stools . No endoscopies done at that time. The last few days, patient noted cough symptoms, productive of yellow sputum. No chest pain, no shortness of breath. Stools noted to be dark the last few days. No abdominal pain. No nausea, no emesis. No dysuria. Patient seen at [facility] Room. Hemoglobin noted to be 8. Melanotic stool noted to be Heme positive. Patient given IV Ceftriaxone for possible UTI. Transferred to [facility] for further evaluation by specialists. . Physical Exam (per Admitting): VITAL SIGNS: Blood pressure was noted to be 131/74, pulse rate 70, RR 20, temperature 37 sats 99% on room air. GENERAL: Noted to be slightly anxious, no respiratory distress, obese. SKIN: Pallor, warm. HEENT: Pale palpebral conjunctivae. No ptosis. Dry buccal mucosa. Note of some multiple nodular lesions in the face (patient attributes to mesh allergy) NECK: Supple. No tenderness. CHEST: Clear to auscultation. No tenderness. HEART: Regular rate and rhythm. Mechanical murmur. ABDOMEN: Soft, some distension, nontender. EXTREMITIES: Minimal LE edema, no tenderness. No gross deformities. NEUROLOGIC: Coherent. No gross focality. . Hospital Course ANEMIA / HEME + STOOLS Hemoglobin 7.7 at time of admission. Anemia secondary to chronic GI blood loss. Requires chronic anticoagulation due to mechanical aortic valve replacement. GI consulted. Underwent EGD 08/11; found to have nonbleeding esophageal varices, mild portal hypertensive gastropathy, few nonbleeding AVM's which were cauterized. PPI and sucralfate recommended by GI. Continue parenteral iron therapy as outpatient. Hgb this morning = 9.3. Continue weekly H/H. Transfuse as necessary to maintain adequate H/H; seems to be comfortable with hemoglobin > 8. CORONARY ARTERY DISEASE S/P PCI. No anginal symptoms. Continue metoprolol, statin. Resumed low dose aspirin tomorrow. CHRONIC DIASTOLIC CHF Compensated. S/P AORTIC VALVE REPLACEMENT Warfarin held for 2 days due to GI bleeding. INR today 1.6. Resume warfarin at usual dose. Recheck INR next week in Anticoagulation Clinic. DM TYPE 2 Well-controlled. Hemoglobin A1c 6.6. Fasting blood sugar day of discharge 210. Metformin held. Received insulin per protocol. Discharge on usual regimen. VTE PROPHYLAXIS On warfarin with therapeutic INR at time of admission. SCD's also ordered. Ambulating. DISPOSITION Discharge to home. Internal Medicine follow-up with Dr. Melo. . Total time spent on discharge = 40 min. This includes examination of the patient, discharge planning, medication reconciliation, and communication with other providers. . Discharge Instructions Date of Service Aug 12, 2017. Admission Reason for Admission: anemia . Discharge Discharge Diagnosis / Problem: anemia Discharge Goals Goal(s): Improve disease control Activity Recommendations Activity Limitations: resume your previous activity . Instructions / Follow-Up Instructions / Follow-Up FOLLOW-UP APPOINTMENTS: INTERNAL MEDICINE 08/16/2017 3:00 PM Luis Melo, DO OTHER INSTRUCTIONS: Resume warfarin (Coumadin) this evening with your usual dosing routine. Have labs checked next week- hemoglobin level and INR. Seek medical attention if you have: * temperature above 101 * chest pain or trouble breathing * abdominal pain, nausea, vomiting * diarrhea, dark stools or bloody stools * any unanswered questions or concerns Call 911 if symptoms are severe. Call if you have any questions or problems. My cell # is [phone]. You can also reach a [facility] hospitalist on duty at [facility] 24 hours a day by calling [phone]. Please take good care of yourself. Leobardo Miranda . Current Hospital Diet Patient's current hospital diet: Diabetes Type 2 Diet, AHA Diet (Heart Healthy) Discharge Diet Recommended Diet: AHA Diet (Heart Healthy), Diabetes Type 2 Diet Pending Studies Studies pending at discharge: no Laboratory Results Hemoglobin A1c Test 08/10/17 23:16 Range/Units Estimated Average Glucose 143 mg/dl Hemoglobin A1c 6.6 H 4.5-5.6 % Medical Emergencies . Who to Call and When: Medical Emergencies: If at any time you feel your situation is an emergency, please call 911 immediately. . Non-Emergent Contact Non-Emergency issues call your: Primary Care Provider, Dock Operations Supervisor, Hospital Doctor . . "Provider Documentation" section prepared by Leobardo Miranda. . VTE Core Measure Inpt VTE Proph given/why not?: Warfarin (Coumadin), SCD's .
== END 2017-08-12 16:00 | disposition home or self-care (01) | DRG 377 ==
LOC: C.2T 22:14
PROVIDERS: ADMIT Internal Medicine; ATTEND Hospitalist
PROC: 0DJ08ZZ Inspection of Upper Intestinal Tract, Via Natural or Artificial Opening Endoscopic (ICD-10-PCS; principal; 2017-08-11 09:04)
DX: K92.2 Gastrointestinal hemorrhage, unspecified (principal); E11.10 Type 2 diabetes mellitus with ketoacidosis without coma; N39.0 Urinary tract infection, site not specified; I50.32 Chronic diastolic (congestive) heart failure; D50.0 Iron deficiency anemia secondary to blood loss (chronic); J44.9 Chronic obstructive pulmonary disease, unspecified; I25.10 Atherosclerotic heart disease of native coronary artery without angina pectoris; K76.0 Fatty (change of) liver, not elsewhere classified; K74.60 Unspecified cirrhosis of liver; I11.0 Hypertensive heart disease with heart failure; E78.5 Hyperlipidemia, unspecified; G47.33 Obstructive sleep apnea (adult) (pediatric); I44.7 Left bundle-branch block, unspecified; E66.9 Obesity, unspecified; Z68.33 Body mass index [BMI] 33.0-33.9, adult; Z86.010 Personal history of colon polyps; Z87.19 Personal history of other diseases of the digestive system; Z95.1 Presence of aortocoronary bypass graft; Z95.2 Presence of prosthetic heart valve; Z95.5 Presence of coronary angioplasty implant and graft; Z79.01 Long term (current) use of anticoagulants; Z79.4 Long term (current) use of insulin; Z88.1 Allergy status to other antibiotic agents; Z88.2 Allergy status to sulfonamides; Z88.5 Allergy status to narcotic agent; Z82.49 Family history of ischemic heart disease and other diseases of the circulatory system

== ENCOUNTER → 2017-12-21 | Day surgery (SDC) | payer OTHER, BC ==
[2017-12-20 15:23] VITALS: Ht 152.4 cm; Wt 71.8 kg
[~2017-12-21] VITALS: Ht 152.4 cm; Wt 71.8 kg
[~2017-12-21] MED LIST changes: +ALBUAER PO; +CEPH-571 PO; -CMD6 PO; +CRFL PO; +CYCL10TA6 PO; +ENOX80IN SQ; +GABA-112 PO; +HYDR10TA52 PO; +LIDOCAINE HCL 2% 2 ML VIAL (20MG/ML) ONE; -LISI-729 PO; +LSN25 PO; -LUPIN PO; -METO25TA56 PO; +PROP10TA7 PO; +PROPOFOL IV EMULSION 10 MG/ML 20 ML VIAL IV ONE; +SODIUM CHLORIDE 0.9% 500ML 500 ML IV ONE
--- NOTE | 2017-12-21 12:30 | Endo History and Physical ---
History & Physical Date of Service: Dec 21, 2017. Chief Complaint: History of polyps, 1 yr f/u Referring Physician: Dr. Luis Melo History of Present Illness H/o polyps Past Medical History Diabetes, Asthma, Reflux, CABG, Heart Disease, CHF, COPD, Valve Replacement, Liver Disease, Depression Past Surgical History Hx Cardiac Surgery: Yes (aorta valve replaced, heart cath with 2 stent) Hx Internal Defibrillator: No Hx Pacemaker: No Hx Abdominal Surgery: Yes (hernia repair x 8, open pippa) Hx of Implantable Prosthesis: No Hx Post-Op Nausea and Vomiting: No Hx Cancer Surgery: No Hx Thoracic Surgery: No Hx Orthopedic: No Hx Urinary Tract Surgery: No Family History None Social History Smoking Status: Never Smoker Hx Substance Use: No Hx Alcohol Use: No Allergies Coded Allergies: Ciprofloxacin (Verified Allergy, Mild, vomitting, 12/20/17) Erythromycin (Verified Allergy, Mild, vomiting, 12/20/17) Hydroxyzine (Verified Allergy, Mild, runny nose and eyes water, 12/20/17) Sulfa Antibiotics (Verified Allergy, Mild, vomitting, 12/20/17) Tetracycline (Verified Allergy, Mild, vomitting, 12/20/17) Current Medications Reported Home Medications Medications Dose Route/Sig Max Daily Dose Days Date Category Dose Instructions Neurontin (Gabapentin) 100 Mg Cap 100 Mg PO TID 12/20/17 Reported Lovenox (Enoxaparin Sodium) 80 Mg/0.8 Ml Inj 80 Mg SQ Q12H 12/20/17 Reported is bridging from coumadin and will be taking the afternoon of procedure and will do 5 or 6 days according to instruction from her dr Wynne (Cyclobenzaprine Hcl) 10 Mg Tab 10 Mg PO TID PRN 12/20/17 Reported Keflex (Cephalexin) 500 Mg Cap 1 Cap PO TID 10 12/20/17 Reported "taking for hernia mesh coming thru skin" and dr Muñoz is aware Carafate (Sucralfate) 1 Gm/10 Ml Mary 10 Ml PO BID 6 12/20/17 Reported having some problems with pharmacy and is aware Proventil Hfa (Albuterol Sulfate) 108 Mcg/Act Aer 2 Puffs PO Q4 PRN 08/10/17 Reported Inderal (Propranolol HCl) 10 Mg Tab 10 Mg PO BID 08/10/17 Reported Lisinopril 2.5 Mg Tab 2.5 Mg PO QAM 08/10/17 Reported Protonix (Pantoprazole Sodium) 40 Mg Tab 40 Mg PO BID 04/01/17 Reported Aspirin Chewable (Aspirin) 81 Mg Chew 81 Mg PO 3XWK 02/23/17 Reported tuesday/tuesday/tuesday Duoneb (Ipratropium-Albuterol) 3 Ml Nebu 1 Treatment INH QID PRN 02/23/17 Reported K-Tabs (Potassium Chloride) 10 Meq Tabcr 10 Meq PO QPM 02/23/17 Reported Buspirone HCl 5 Mg Tab 5 Mg PO BID PRN 01/10/17 Reported Humalog (Insulin Lispro (Human)) 100 Unit/Ml Inj 20 Units SQ TIDM 01/10/17 Reported Lantus (Insulin Glargine) 100 Unit/Ml Inj 60 Units SC QAM 01/10/17 Reported Ultram (Tramadol HCl) 50 Mg Tab 50 Mg PO Q8 PRN 01/10/17 Reported Flonase Allergy Relief (Fluticasone Propionate (Nasal)) 50 Mcg/Act Spr 2 Sprays BENITO DAILY 07/26/16 Reported Zofran (Ondansetron HCl) 4 Mg Tab 4 Mg PO Q6 PRN 07/26/16 Reported Vitamin D3 (Cholecalciferol) 2,000 Unit Cap 2,000 Unit PO DAILY 07/26/16 Reported Venlafaxine Hcl Er (Venlafaxine Hcl) 150 Mg Tab 150 Mg PO QAM 07/26/16 Reported Lipitor (Atorvastatin Calcium) 80 Mg Tab 80 Mg PO HS 07/26/16 Reported Nitrostat (Nitroglycerin) 0.4 Mg Tab 0.4 Mg UT UD PRN 07/26/16 Reported Coumadin (Warfarin Sodium) 4 Mg Tab 0 PO UD 07/26/16 Reported 6 mg Tuesday and Tuesday 4 mg Tuesday, Tuesday, , Tuesday, Tuesday will bridge to lovenox Combivent Respimat (Ipratropium-Albuterol) 1 Aer Aer 2 Puffs INH BID 07/26/16 Reported Vitron-C (Iron-Vitamin C) 1 Tab Tab 1 Tab PO BID 02/18/16 Reported Folic Acid 1 Mg Tab 2 Mg PO DAILY 02/18/16 Reported Glucophage (Metformin Hcl) 1,000 Mg Tab 1,000 Mg PO BID 01/24/12 Reported Lasix (Furosemide) 40 Mg Tab 40 Mg PO BID 10/12/06 Reported Micro-K Ext Rel (Potassium Chloride) 10 Meq Capcr 20 Meq PO QAM 10/12/06 Reported Vital Signs Weight (Kilograms): 71.82 Height (Feet): 5 Height (Inches): 0 Date Time Temp Pulse Resp B/P (MAP) Pulse Ox O2 Delivery O2 Flow Rate FiO2 12/21/17 12:18 37 76 16 144/90 (108) 95 Room Air Physical Exam General Appearance: no apparent distress Respiratory/Chest: Auscultation: breath sounds normal Cardiovascular: Heart Auscultation: RRR Abdomen: Inspection & Palpation: soft Assessment and Plan Cscopy for polyps
--- NOTE | 2017-12-21 13:30 | GI REPORT ---
Procedure Date: 12/21/2017 12:24 PM Procedure: Colonoscopy Indications: High risk colon cancer surveillance: Personal history of colonic polyps Medicines: See the Anesthesia note for documentation of the administered medications Complications: No immediate complications. Estimated Blood Loss: Estimated blood loss: none. Procedure: Pre-Anesthesia Assessment: - ASA Grade Assessment: III - A patient with severe systemic disease. - After reviewing the risks and benefits, the patient was deemed in satisfactory condition to undergo the procedure. After I obtained informed consent, the scope was passed under direct vision. Throughout the procedure, the patient's blood pressure, pulse, and oxygen saturations were monitored continuously. The scope was introduced through the anus and advanced to the terminal ileum. The colonoscopy was somewhat difficult due to significant looping. The patient tolerated the procedure well. The quality of the bowel preparation was good. Findings: Hemorrhoids were found on perianal exam. A few small and large-mouthed diverticula were found in the sigmoid colon. A 1 mm polyp was found in the ascending colon. The polyp was sessile. The polyp was removed with a cold biopsy forceps. Resection and retrieval were complete. The exam was otherwise without abnormality. Impression: - Hemorrhoids found on perianal exam. - Diverticulosis in the sigmoid colon. - One 1 mm polyp in the ascending colon, removed with a cold biopsy forceps. Resected and retrieved. - The examination was otherwise normal. Recommendation: - Discharge patient to home. Jaswant Muñoz M.D. Jaswant Muñoz MD 12/21/2017 1:30:06 PM This report has been signed electronically. Note Initiated On: 12/21/2017 12:24 PM I attest to the content of the Intraoperative Record and orders documented therein, exceptions below
--- NOTE | 2017-12-21 13:42 | Discharge Instructions ---
Endoscopy Patient Instructions Date / Procedure(s) Performed Dec 21, 2017. Colonoscopy Allergy Information Coded Allergies: Ciprofloxacin (Verified Allergy, Mild, vomitting, 12/20/17) Erythromycin (Verified Allergy, Mild, vomiting, 12/20/17) Hydroxyzine (Verified Allergy, Mild, runny nose and eyes water, 12/20/17) Sulfa Antibiotics (Verified Allergy, Mild, vomitting, 12/20/17) Tetracycline (Verified Allergy, Mild, vomitting, 12/20/17) Discharge Date / Findings Dec 21, 2017. Diminutive polyp Medication Instructions Stopped Medication(s): Patient stated she only took her bp meds. Restart Stopped Medication(s): Resume all stopped meds Provider Instructions Activity Restrictions - No exercising or heavy lifting for 24 hours. - Do not drink alcohol the day of the procedure. - Do not drive a car or operate machinery until the day after the procedure. - Do not make any important decisions or sign important papers in 24 hours after the procedure. Following Day: - Return to full activity which may include returning to work/school. Diet Start your diet with liquids and light foods (jello, soup, juice, toast). Then eat your usual diet if not nauseated. Treatment For Common After Affects For mild abdominal pain, bloating, or excessive gas: - Rest - Eat lightly - Lie on right side Follow-Up Information Follow-up with Dr. Luis Melo as scheduled Anesthesia Information What You Should Know You have had a procedure that required some medicine to reduce anxiety and discomfort. This treatment is called moderate sedation. After receiving the treatment, you may be sleepy, but you will be able to breathe on your own. The effects of the treatment may last for several hours. Follow these instructions along with Activity/Diet recommendations noted above: * Do NOT do anything where dizziness or clumsiness would be dangerous. * Rest quietly at home today, then you can be up and about tomorrow. * Have a responsible person stay with you the rest of today. * You may have had an I.V. today. If so, you may take the dressing off later today. Recommendations Call your doctor if: * Trouble breathing * Continuous vomiting for more than 24 hours * Temperature above 101 degrees * Severe abdominal pain or bloating * Pain not relieved by pain medicine ordered * There is increased drainage or redness from any incision * A large amount of rectal bleeding greater than 2-3 tablespoons. (If you had a polyp/s removed or have hemorrhoids, a small amount of blood - from the rectum is to be expected.) * You have any unanswered questions or concerns. IN THE EVENT OF A SERIOUS EMERGENCY, GO TO THE NEAREST EMERGENCY ROOM Your discharge instructions were prepared by provider Jaswant Cox. Patient Instructions Signature Page Lesley Reyes Patient (or Guardian) Signature/Date: I have read and understand the instructions given to me by my caregivers. Caregiver/RN/Doctor Signature/Date: The above-named patient and/or guardian has received patient instructions on this date. + Original Patient Signature Page (only) stays with chart. Please make copy for patient.
--- NOTE | 2017-12-21 13:55 | Anesthesiology Progress Note ---
Anesthesia Post Op Note Date & Time Dec 21, 2017 at 13:55 Vital Signs Pain Intensity: 0 Vital Signs Past 12 Hours Date Time Temp Pulse Resp B/P (MAP) Pulse Ox O2 Delivery O2 Flow Rate FiO2 12/21/17 13:40 66 20 133/65 (87) 98 Room Air 12/21/17 13:21 72 18 118/68 (85) 98 Room Air 12/21/17 12:18 37 76 16 144/90 (108) 95 Room Air Notes Mental Status: alert / awake / arousable, participated in evaluation Pt Amnestic to Procedure: Yes Nausea / Vomiting: adequately controlled Pain: adequately controlled Airway Patency, RR, SpO2: stable & adequate BP & HR: stable & adequate Hydration State: stable & adequate Anesthetic Complications: no major complications apparent
[2017-12-21 13:57] VITALS: BP 148/86; PULSE 70; O2SAT 98
== END | disposition home or self-care (01) ==
LOC: C.GI 11:40
PROVIDERS: ATTEND Internal Medicine Gastroenterology
DX: Z12.11 Encounter for screening for malignant neoplasm of colon (principal); D12.2 Benign neoplasm of ascending colon; K64.8 Other hemorrhoids; Z86.010 Personal history of colon polyps; E11.9 Type 2 diabetes mellitus without complications; J44.9 Chronic obstructive pulmonary disease, unspecified; I25.10 Atherosclerotic heart disease of native coronary artery without angina pectoris; G47.33 Obstructive sleep apnea (adult) (pediatric); Z95.2 Presence of prosthetic heart valve; Z95.5 Presence of coronary angioplasty implant and graft; Z90.49 Acquired absence of other specified parts of digestive tract; Z88.1 Allergy status to other antibiotic agents; Z88.2 Allergy status to sulfonamides; Z79.82 Long term (current) use of aspirin; Z79.4 Long term (current) use of insulin; Z79.01 Long term (current) use of anticoagulants; Z79.84 Long term (current) use of oral hypoglycemic drugs; Z90.89 Acquired absence of other organs

== ENCOUNTER 2018-05-03 10:47 | Inpatient (IN) | payer OTHER, BC ==
[~2018-05-03] VITALS: Ht 152.4 cm; Wt 94.0 kg
[~2018-05-03 10:47] MED LIST changes: -ENOX80IN SQ; -HYDR10TA52 PO; +IPRA-64 INH; -IPRASOL4 INH; -LIDOCAINE HCL 2% 2 ML VIAL (20MG/ML) ONE; -PROPOFOL IV EMULSION 10 MG/ML 20 ML VIAL IV ONE; -SODIUM CHLORIDE 0.9% 500ML 500 ML IV ONE
--- NOTE | 2018-05-03 11:48 | DIAGNOSTIC IMAGING REPORT ---
CHEST ONE VIEW PORTABLE HISTORY: 62 years-old Female CHEST PAIN acute atypical chest pain COMPARISON: Chest radiograph 08/10/2017 TECHNIQUE: Portable AP view of the chest FINDINGS: Cardiomegaly. Prior median sternotomy with cardiac valvular prosthesis. Mild right hemidiaphragmatic elevation. No pneumothorax or large pleural effusion. No overt pulmonary edema. Subsegmental left basilar opacities. No pneumothorax. Degenerative changes of the shoulders and spine. IMPRESSION: 1. Cardiomegaly without overt pulmonary edema. 2. Subsegmental left basilar opacities favor atelectasis or scarring. The above report was generated using voice recognition software. It may contain grammatical, syntax or spelling errors. Electronically signed by: Allen Hernadez M.D. 05/03/2018 11:46 AM Dictated Date/Time: 05/03/2018 11:45 AM
--- NOTE | 2018-05-03 11:52 | EMERGENCY ROOM VISIT NOTE ---
History Report prepared by Louis: Perez Granados Under the Supervision of: Dr. Otis Piña M.D. First contact with patient: 11:03 Chief Complaint: OTHER COMPLAINT Stated Complaint: FLUID OVERLOAD History of Present Illness The patient is a 62 year old female who presents to the Emergency Room with complaints of constant fluid overload. The patient reports that two weeks ago she first felt the symptoms along with abdominal pain and went to the doctor for it, who instructed her to report to the ER if it became worse. She notes that recently it feels like it is getting closer to the heart. The patient reports that she is a little short of breath and will cough occasionally with exertion. She states that she never had fluid drained. She notes that she takes Lasix (40 mg per day) for congestive heart failure. The patient reports a history of A fib/A flutter. She also notes cirrhosis that she states was from diet. She states she is not usually on oxygen. The patient states that she is on Coumadin for valve issues, with her last check 2 weeks ago showing a value of 2.5. She notes that she sees Wing Reynolds PA-C for her heart. Source of History: patient Onset: two weeks ago Position: abdomen Quality: other (fluid overload) Timing: constant Associated Symptoms: + cough (with exertion), + SOB Review of Systems See HPI for pertinent positives and negatives. A total of ten systems were reviewed and were otherwise negative. Past Medical & Surgical Medical Problems: (1) ASCVD (arteriosclerotic cardiovascular disease) (2) Asthma (3) Cirrhosis (4) Congestive heart failure due to valvular disease (5) Depression (6) DM type 2 (diabetes mellitus, type 2) (7) Dyslipidemia (8) GERD (gastroesophageal reflux disease) (9) VIDHI (iron deficiency anemia) (10) Insomnia (11) Right ovarian cyst (12) Vitamin D deficiency (13) Warfarin anticoagulation Surgical Problems: (1) H/O mechanical aortic valve replacement (2) H/O pericardiectomy (3) H/O ventral hernia repair (4) History of incisional hernia repair (5) Hx of cholecystectomy (6) Hx of tonsillectomy (7) S/P angioplasty with stent Social History Problems: (1) GERD (gastroesophageal reflux disease) Family History FH: CAD (coronary artery disease) BROTHER SISTER Social History Smoking Status: Never Smoker Alcohol Use: none Drug Use: none Marital Status: Occupation Status: retired, disabled Current/Historical Medications Scheduled Aspirin (Aspirin Ec), 81 MG PO QAM Atorvastatin (Lipitor), 80 MG PO HS Buspirone HCl (Buspirone HCl), 5 MG PO BID Cholecalciferol (Vitamin D3), 2,000 UNIT PO DAILY Fluticasone Propionate (Nasal) (Flonase Allergy Relief), 2 SPRAYS BENITO QAM Folic Acid (Folic Acid), 1 MG PO BID Furosemide (Lasix), 40 MG PO DAILY Gabapentin (Neurontin), 100 MG PO TID Insulin Glargine (Lantus), 60 UNITS SC QAM Insulin Lispro (Human) (Humalog), 20 UNITS SQ TIDM Iron-Vitamin C (Vitron-C), 1 TAB PO DAILY Lisinopril (Lisinopril), 2.5 MG PO QAM Metformin Hcl (Glucophage), 1,000 MG PO BID Mupirocin 2% (Bactroban 2%), 1 APPLN EXT TID Pantoprazole (Protonix), 40 MG PO BID Potassium Chloride (Micro-K Ext Rel), 20 MEQ PO QAM Potassium Chloride (Potassium Chloride Er), 1 CAP PO QPM Propranolol (Inderal), 10 MG PO TID Risperidone (Risperdal), 1 MG PO HS Venlafaxine Hcl (Venlafaxine Hcl Er), 150 MG PO QAM Warfarin Sod (Coumadin), 6 MG PO MoFr Warfarin Sodium (Warfarin Sodium), 1 TAB PO SuTuWeThSa Scheduled PRN Acetaminophen/Diphenhydramine (Tylenol Pm), 1 TAB PO HS PRN for Sleep Albuterol Sulfate (Proventil Hfa), 2 PUFFS PO Q4 PRN for Wheezing Cyclobenzaprine Hcl (Flexeril), 5 MG PO TID PRN for Muscle Spasms Ipratropium-Albuterol (Combivent Respimat), 2 PUFFS INH BID PRN for Allergic Reaction Ipratropium-Albuterol (Duoneb), 1 TREATMENT INH QID PRN for SOB/Wheezing Nitroglycerin (Nitrostat), 0.4 MG UT UD PRN for Chest Pain Ondansetron Hcl (Zofran), 4 MG PO Q6 PRN for Nausea Tramadol (Ultram), 50 MG PO Q8 PRN for Pain Allergies Coded Allergies: Ciprofloxacin (Verified Adverse Reaction, Mild, vomitting, 05/03/18) Erythromycin (Verified Adverse Reaction, Mild, vomiting, 05/03/18) Hydroxyzine (Verified Adverse Reaction, Mild, runny nose and eyes water, ) Sulfa Antibiotics (Verified Adverse Reaction, Mild, vomitting, 05/03/18) Tetracycline (Verified Adverse Reaction, Mild, vomitting, 05/03/18) Physical Exam Vital Signs Date Time Temp Pulse Resp B/P (MAP) Pulse Ox O2 Delivery O2 Flow Rate FiO2 05/03/18 14:41 121 23 112/87 94 Room Air 05/03/18 14:32 121 24 106/82 93 Room Air 05/03/18 14:27 122 24 109/78 96 Room Air 05/03/18 14:27 122 109/78 05/03/18 14:11 121 24 122/77 94 Room Air 05/03/18 13:15 124 16 98/67 97 Room Air 05/03/18 12:50 124 28 115/83 95 Room Air 05/03/18 12:09 124 05/03/18 12:03 124 25 110/88 95 Room Air 05/03/18 11:21 97 Room Air 05/03/18 11:19 123 26 130/93 96 Room Air 05/03/18 10:52 36.7 123 18 120/80 96 Room Air Physical Exam GENERAL: Awake, alert, fatigued, uncomfortable, in no distress HENT: Normocephalic, atraumatic. Mucous membranes are dry. EYES: Normal conjunctiva. Sclera non-icteric. NECK: Supple. No nuchal rigidity. FROM. No JVD. RESPIRATORY: Diminished breath sounds at bases. CARDIAC: Heart rate is regular and tachycardic. Extremities warm and well perfused. Pulses equal. 3/6 systolic murmur with systolic click. ABDOMEN: Mildly distended but soft. No tenderness to palpation. No rebound or guarding. No masses. RECTAL: Deferred. MUSCULOSKELETAL: Chest examination reveals no tenderness. The back is symmetrical on inspection without obvious abnormality. There is no CVA tenderness to palpation. No joint edema. LOWER EXTREMITIES: Calves are equal size bilaterally and non-tender. Scant lower extremity edema. No discoloration. NEURO: Normal sensorium. No sensory or motor deficits noted. SKIN: No rash or jaundice noted. Medical Decision & Procedures ER Provider Diagnostic Interpretation: Radiology results as stated below per my review and radiologist interpretation: ABD/PELVIS IV CONTRAST ONLY CLINICAL HISTORY: 62 years-old Female presenting with abdominal pain. TECHNIQUE: Multidetector CT of the abdomen and pelvis was performed after the administration of intravenous contrast. IV contrast: 119 mL of Optiray 320. A dose lowering technique was used consistent with the principles of ALARA (as low as reasonably achievable). COMPARISON: 07/26/2016. CT DOSE (mGy.cm): The estimated cumulative dose is 1425.01 mGy.cm. 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 Median sternotomy wires. Coil qing noted in the pelvis likely from hernia repair. Lung bases: Suggestion of underlying emphysema. Dependent opacities with volume loss likely passive atelectasis secondary to the presence of bilateral small pleural effusions. Multichamber enlargement of the heart. Coronary artery and mitral annular calcification. Prosthetic aortic valve. No pericardial effusion. Liver: Cirrhotic morphology of the liver. No liver lesion allowing for the single phase of contrast. Patent hepatic vasculature. Biliary: Mild biliary ductal prominence likely a reservoir effect in the post cholecystectomy state. Gallbladder surgically absent. Pancreas: Mild parenchymal atrophy. Spleen: Top normal in size measuring nearly 13 cm in maximal sagittal dimension. Adrenal glands: Normal. Kidneys and ureters: Normal. No hydronephrosis. Bladder: Incompletely evaluated secondary to underdistention. Pelvic organs: Uterus normal. 2.4 cm cyst suggested in the right ovary with a peripheral focus of mural calcification (series 3 image 330). Left ovary normal. Bowel: Diverticulosis of the sigmoid colon. The appendix is normal. No bowel obstruction. Hyperdensity noted in the small bowel, indeterminate (series 3 image 320). This may be metallic. This is within the lumen of the bowel and does not appear to have traversed the bowel wall. No regional extraluminal gas. Peritoneal cavity: Small moderate amount of abdominopelvic ascites. No free intraperitoneal gas. Lymph nodes: No enlarged lymph nodes in the abdomen or pelvis. Vasculature: Atherosclerosis of the normal caliber abdominal aorta. IVC patent. Varices noted in the para esophageal/esophageal region as well as recanalization of the umbilical vein. Abdominal wall: Severe abdominal wall edema consistent with anasarca. Epigastric hernia containing fat and ascites. Small hernia to the right of midline in the epigastrium containing fat and the dilated periumbilical vein. A second smaller hernia is noted inferior to this (series 3 image 232). Postsurgical changes of hernia repair in the infraumbilical abdomen. Musculoskeletal: Degenerative changes of the spine. IMPRESSION: 1. Linear metallic foreign body within the lumen of small bowel. No bowel obstruction or evidence of mural perforation. No free air. Surgical consultation advised. Correlate with the patient's ingestion history. 2. Cirrhosis with portal hypertension evidenced by varices and ascites. 3. Anasarca may be due to a combination of cardiomegaly and portal hypertension. 4. Bilateral pleural effusions. 5. Right ovarian 2.4 cm cyst. This is somewhat unexpected in the postmenopausal female and could be evaluated on a nonurgent basis with ultrasound. 6. Diverticulosis. 7. Postsurgical changes of aortic valve replacement. Electronically signed by: Joseluis Stanley M.D. 05/03/2018 2:08 PM CHEST ONE VIEW PORTABLE HISTORY: 62 years-old Female CHEST PAIN acute atypical chest pain COMPARISON: Chest radiograph 08/10/2017 TECHNIQUE: Portable AP view of the chest FINDINGS: Cardiomegaly. Prior median sternotomy with cardiac valvular prosthesis. Mild right hemidiaphragmatic elevation. No pneumothorax or large pleural effusion. No overt pulmonary edema. Subsegmental left basilar opacities. No pneumothorax. Degenerative changes of the shoulders and spine. IMPRESSION: 1. Cardiomegaly without overt pulmonary edema. 2. Subsegmental left basilar opacities favor atelectasis or scarring. The above report was generated using voice recognition software. It may contain grammatical, syntax or spelling errors. Electronically signed by: Allen Hernadez M.D Laboratory Results 05/03/18 11:34 Red Blood Count 4.23, Mean Corpuscular Volume 86.5, Mean Corpuscular Hemoglobin 27.7, Mean Corpuscular Hemoglobin Concent 32.0, Mean Platelet Volume 9.8, Neutrophils (%) (Auto) 68.7, Lymphocytes (%) (Auto) 17.6, Monocytes (%) (Auto) 10.5, Eosinophils (%) (Auto) 2.8, Basophils (%) (Auto) 0.4, Neutrophils # (Auto ) 3.21, Lymphocytes # (Auto) 0.82, Monocytes # (Auto) 0.49, Eosinophils # (Auto ) 0.13, Basophils # (Auto) 0.02 05/03/18 11:34 Test 05/03/18 11:34 05/03/18 11:36 White Blood Count 4.67 K/uL (4.8-10.8) Red Blood Count 4.23 M/uL (4.2-5.4) Hemoglobin 11.7 g/dL (12.0-16.0) Hematocrit 36.6 % (37-47) Mean Corpuscular Volume 86.5 fL (80-100) Mean Corpuscular Hemoglobin 27.7 pg (25-34) Mean Corpuscular Hemoglobin Concent 32.0 g/dl (32-36) Platelet Count 184 K/uL (130-400) Mean Platelet Volume 9.8 fL (7.4-10.4) Neutrophils (%) (Auto) 68.7 % Lymphocytes (%) (Auto) 17.6 % Monocytes (%) (Auto) 10.5 % Eosinophils (%) (Auto) 2.8 % Basophils (%) (Auto) 0.4 % Neutrophils # (Auto) 3.21 K/uL (1.4-6.5) Lymphocytes # (Auto) 0.82 K/uL (1.2-3.4) Monocytes # (Auto) 0.49 K/uL (0.11-0.59) Eosinophils # (Auto) 0.13 K/uL (0-0.5) Basophils # (Auto) 0.02 K/uL (0-0.2) RDW Standard Deviation 46.4 fL (36.4-46.3) RDW Coefficient of Variation 14.8 % (11.5-14.5) Immature Granulocyte % (Auto) 0.0 % Immature Granulocyte # (Auto) 0.00 K/uL (0.00-0.02) Prothrombin Time 33.7 SECONDS (9.0-12.0) Prothromb Time International Ratio 3.3 (0.9-1.1) Anion Gap 7.0 mmol/L (3-11) Est Creatinine Clear Calc Drug Dose 84.1 ml/min Estimated GFR () 106.1 Estimated GFR (Non- 91.6 BUN/Creatinine Ratio 12.9 (10-20) Calcium Level 9.1 mg/dl (8.5-10.1) Phosphorus Level 3.8 mg/dl (2.5-4.9) Magnesium Level 1.4 mg/dl (1.8-2.4) Total Bilirubin 0.5 mg/dl (0.2-1) Direct Bilirubin 0.2 mg/dl (0-0.2) Aspartate Amino Transf (AST/SGOT) 42 U/L (15-37) Alanine Aminotransferase (ALT/SGPT) 33 U/L (12-78) Alkaline Phosphatase 80 U/L (45-117) Troponin I < 0.015 ng/ml (0-0.045) Pro-B-Type Natriuretic Peptide 1499 pg/ml (0-900) Total Protein 7.8 gm/dl (6.4-8.2) Albumin 3.3 gm/dl (3.4-5.0) Lipase 255 U/L (73-393) Venous Blood pH 7.39 (7.36-7.41) Venous Blood Partial Pressure CO2 46 mmHg (38.0-50.0) Venous Blood Partial Pressure O2 33 mmHg Venous Blood HCO3 27 mmol/L Venous Blood Oxygen Saturation < 60.0 % Venous Blood Base Excess 2.0 mEq/L Laboratory results reviewed by me Medications Administered Medications (Trade) Dose Ordered Sig/Lee Ann Route Start Time Stop Time Status Last Admin Dose Admin Magnesium Sulfate (Magnesium Sulfate 1gm / D5W) 2 gm NOW STAT IV 05/03/18 13:11 05/03/18 13:12 DC 05/03/18 13:17 2 GM Metoprolol Tartrate (Lopressor Iv) 5 mg NOW STAT IV 05/03/18 14:19 05/03/18 14:20 DC 05/03/18 14:27 5 MG ECG Per My Interpretation Indication: SOB/dyspnea Rate (beats per minute): 123 Rhythm: atrial flutter Findings: no acute ischemic change, left axis deviation, other (2 to 1 AV block ) Comparison ECG Date: no prior available ED Course 1110: The patient was evaluated in room C9. A complete history and physical exam was performed. 1430: I spoke with Estela Hudson PA-C: Brisa. She will reevaluate the patient for admission. Medical Decision I reviewed the patient's past medical history, medications, and the nursing notes as described above. Differential diagnosis: Etiologies such as infections, reactive airway disease, pneumonia, pneumothorax , COPD, CHF, cardiac ischemia, pulmonary embolism, musculoskeletal, gastrointestinal, as well as others were entertained. The patient is a 62-year-old woman with a past medical history of CHF on Lasix, mechanical aortic valve on Coumadin, mitral insufficiency, cirrhosis resents emergency department with worsening abdominal distention and fluid retention over the past couple of weeks per hpi. On arrival the patient is fatigued appearing but no acute distress, afebrile stable vital signs. On exam the patient has mild abdominal distention but is otherwise soft and nontender. EKG demonstrates a flutter without evidence of acute ischemia and rate in 120s. She reports she previously had A. fib/flutter but resolved after cardioversion. WBC 4.6 nonspecific, troponin negative, BNP 1499, magnesium 1.4 and repleted, INR 3.3. Chest x-ray demonstrates cardiomegaly without overt pulmonary edema or evidence of fluid overload. Bedside echo demonstrates grossly normal LV size and function with question mildly enlarged and mildly reduced RV function. Moderate amount of ascites observed on bedside ultrasound, however with no large pocket at this time to perform paracentesis at the bedside. CT abdomen pelvis demonstrates evidence of worsening cirrhosis with portal hypertension, varices, ascites, and anasarca. Given that the patient does have evidence of fluid overload which is predominantly with ascites, diuresis deferred at this time. However, given metoprolol to assist with rate control given her a flutter though she also reports she did not take her afternoon propranolol today. Considering the patient's multitude of comorbidities with overall worsening fluid status/cirrhosis it is reasonable to admit this patient for further management including cardiology and GI consultation. Of note, the patient's CT did demonstrate metallic object within her bowel. However, the patient denies any recent ingestions, dental procedures, and additionally uses dentures and so would not have had a loose tooth be swallowed. Unclear significance of this finding this time. Case was discussed with EDILIA Mckinley, [facility] hospitalist, who will evaluate the patient for admission. Medication Reconcilliation Current Medication List: was personally reviewed by id Blood Pressure Screening Patient's blood pressure: Normal blood pressure Blood pressure disposition: Did not require urgent referral Consults Time Called: 1420 Consulting Physician: Estela Hudson PA-C: Brisa Returned Call: 1430 I spoke with Estela Hudson PA-C: Brisa. She will reevaluate the patient for admission. Impression Primary Impression: Atrial flutter Additional Impressions: Portal hypertension Cirrhosis Scribe Attestation The scribe's documentation has been prepared under my direction and personally reviewed by me in its entirety. I confirm that the note above accurately reflects all work, treatment, procedures, and medical decision making performed by me. Departure Information Dispostion Being Evaluated By Hospitalist Patient Instructions My [facility] Problem Qualifiers
[2018-05-03 11:53] LABS: BASO % 0.4 %; BASO ABS # 0.02 K/uL (0-0.2); EOS % 2.8 %; EOS ABS # 0.13 K/uL (0-0.5); HEMATOCRIT 36.6 % (37-47); HEMOGLOBIN 11.7 g/dL (12.0-16.0); LYMPH % 17.6 %; LYMPH ABS # 0.82 K/uL (1.2-3.4); MEAN CELL VOLUME 86.5 fL (80-100); MEAN CORPUSCULAR HEMOGLOBIN 27.7 pg (25-34); MEAN PLATELET VOLUME 9.8 fL (7.4-10.4); MONO % 10.5 %; MONO ABS # 0.49 K/uL (0.11-0.59); NEUT % 68.7 %; NEUT ABS # 3.21 K/uL (1.4-6.5); PLATELET COUNT 184 K/uL (130-400); RED CELL DISTRIBUTION WIDTH CV 14.8 % (11.5-14.5); RED CELL DISTRIBUTION WIDTH SD 46.4 fL (36.4-46.3); WHITE BLOOD COUNT 4.67 K/uL (4.8-10.8)
[2018-05-03 11:57] LABS: INR 3.3 (0.9-1.1)
[2018-05-03 12:14] LABS: ALBUMIN 3.3 gm/dl (3.4-5.0); BLOOD UREA NITROGEN 9 mg/dl (7-18); CALCIUM 9.1 mg/dl (8.5-10.1); CARBON DIOXIDE 27 mmol/L (21-32); GLUCOSE 174 mg/dl (70-99); POTASSIUM 3.8 mmol/L (3.5-5.1); SODIUM 140 mmol/L (136-145); TOTAL PROTEIN 7.8 gm/dl (6.4-8.2)
[2018-05-03 12:15] LABS: ALKALINE PHOSPHATASE 80 U/L (45-117); ALT/SGPT 33 U/L (12-78); AST/SGOT 42 U/L (15-37); LIPASE 255 U/L (73-393); PHOSPHORUS 3.8 mg/dl (2.5-4.9)
[2018-05-03] MEDS ORDERED: DIPH-437 PO (12:17)
[2018-05-03] MEDS ORDERED: ASPI81TA28 PO (12:17)
[2018-05-03] MEDS ORDERED: RISP0.5T10 PO (12:17)
[2018-05-03] MEDS ORDERED: MAGNESIUM SULFATE 1GM / D5W 1 GM BAG IV STA (13:11)
[2018-05-03] MEDS ORDERED: OPTIRAY 320 IV PRN (13:30)
--- NOTE | 2018-05-03 14:09 | DIAGNOSTIC IMAGING REPORT ---
ABD/PELVIS IV CONTRAST ONLY CLINICAL HISTORY: 62 years-old Female presenting with abdominal pain. TECHNIQUE: Multidetector CT of the abdomen and pelvis was performed after the administration of intravenous contrast. IV contrast: 119 mL of Optiray 320. A dose lowering technique was used consistent with the principles of ALARA (as low as reasonably achievable). COMPARISON: 07/26/2016. CT DOSE (mGy.cm): The estimated cumulative dose is 1425.01 mGy.cm. 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 Median sternotomy wires. Coil qing noted in the pelvis likely from hernia repair. Lung bases: Suggestion of underlying emphysema. Dependent opacities with volume loss likely passive atelectasis secondary to the presence of bilateral small pleural effusions. Multichamber enlargement of the heart. Coronary artery and mitral annular calcification. Prosthetic aortic valve. No pericardial effusion. Liver: Cirrhotic morphology of the liver. No liver lesion allowing for the single phase of contrast. Patent hepatic vasculature. Biliary: Mild biliary ductal prominence likely a reservoir effect in the post cholecystectomy state. Gallbladder surgically absent. Pancreas: Mild parenchymal atrophy. Spleen: Top normal in size measuring nearly 13 cm in maximal sagittal dimension. Adrenal glands: Normal. Kidneys and ureters: Normal. No hydronephrosis. Bladder: Incompletely evaluated secondary to underdistention. Pelvic organs: Uterus normal. 2.4 cm cyst suggested in the right ovary with a peripheral focus of mural calcification (series 3 image 330). Left ovary normal. Bowel: Diverticulosis of the sigmoid colon. The appendix is normal. No bowel obstruction. Hyperdensity noted in the small bowel, indeterminate (series 3 image 320). This may be metallic. This is within the lumen of the bowel and does not appear to have traversed the bowel wall. No regional extraluminal gas. Peritoneal cavity: Small moderate amount of abdominopelvic ascites. No free intraperitoneal gas. Lymph nodes: No enlarged lymph nodes in the abdomen or pelvis. Vasculature: Atherosclerosis of the normal caliber abdominal aorta. IVC patent. Varices noted in the para esophageal/esophageal region as well as recanalization of the umbilical vein. Abdominal wall: Severe abdominal wall edema consistent with anasarca. Epigastric hernia containing fat and ascites. Small hernia to the right of midline in the epigastrium containing fat and the dilated periumbilical vein. A second smaller hernia is noted inferior to this (series 3 image 232). Postsurgical changes of hernia repair in the infraumbilical abdomen. Musculoskeletal: Degenerative changes of the spine. IMPRESSION: 1. Linear metallic foreign body within the lumen of small bowel. No bowel obstruction or evidence of mural perforation. No free air. Surgical consultation advised. Correlate with the patient's ingestion history. 2. Cirrhosis with portal hypertension evidenced by varices and ascites. 3. Anasarca may be due to a combination of cardiomegaly and portal hypertension. 4. Bilateral pleural effusions. 5. Right ovarian 2.4 cm cyst. This is somewhat unexpected in the postmenopausal female and could be evaluated on a nonurgent basis with ultrasound. 6. Diverticulosis. 7. Postsurgical changes of aortic valve replacement. Electronically signed by: Joseluis Stanley M.D. 05/03/2018 2:08 PM Dictated Date/Time: 05/03/2018 1:55 PM
[2018-05-03] MEDS ORDERED: METOPROLOL TARTRATE 1 MG/ML VIAL IV STA (14:19)
[2018-05-03] MEDS ORDERED: POLYETHYLENE (MIRALAX) 17 GM PACK PO PRN (15:45)
--- NOTE | 2018-05-03 15:49 | History and Physical ---
History & Physical Date & Time of Service: May 03, 2018 at 15:49 Chief Complaint: Fluid Overload Primary Care Physician: Luis eMlo D.O. History of Present Illness Source: patient, clinic records, hospital records This is a 62yoF with a PMH of diastolic heart failure 2/2 valvular disease, aortic stenosis s/p mechanical valve replacement, NAFLD cirrhosis with portal HTN, CAD (s/p CABG), DM II and other medical problems listed below who presents with abdominal distention 2 weeks. With the fluid accumulation in her abdomen , patient notes that she has gained ~40 pounds. Has associated dyspnea on exertion and a dry cough. Was evaluated at [facility] 10 days ago and was to follow-up with her PCP, who increased Lasix 40mg PO to twice daily for 3 days and then resume Lasix 40 mg once daily. Abdomen has become more distended and patient has become more dyspneic since then, so she came to ED for further evaluation. Denies any increased intake of salty foods or medication non- compliance. Denies any fever, chills, lightheadedness, visual changes, chest pain, nausea, vomiting, hematemesis, dysuria or constipation. Stools have been loose over the past week or so since she completed a course of Keflex for UTI. No hematemesis or melena. In ED, patient was noted to be tachycardic and EKG revealed A flutter with heart rate in 120s. Patient has been told she has a fast heart rate before but does not remember a diagnosis of A Flutter. No mention of A Flutter in cardiology notes. Follows with LIBBY Reynolds in cardiology clinic and Dr. Muñoz in GI clinic. Has been diagnosed with cirrhosis but denies ascites in the past. Has never had a paracentesis. Past Medical/Surgical History Medical Problems: (1) Anemia (2) Anticoagulated on Coumadin (3) ASCVD (arteriosclerotic cardiovascular disease) (4) Asthma (5) Atrial flutter (6) Current use of penitentiary anticoagulation (7) Depression (8) DM type 2 (diabetes mellitus, type 2) (9) Dyslipidemia (10) GERD (gastroesophageal reflux disease) (11) GI bleed (12) GIB (gastrointestinal bleeding) (13) VIDHI (iron deficiency anemia) (14) Severe anemia (15) Symptomatic anemia (16) Upper gastrointestinal bleed (17) Volume overload Surgical Problems: (1) H/O aortic valve replacement (2) H/O pericardiectomy (3) H/O ventral hernia repair (4) History of incisional hernia repair (5) Hx of cholecystectomy (6) Hx of tonsillectomy (7) S/P angioplasty with stent Family History FH: CAD (coronary artery disease) BROTHER SISTER Social History Smoking Status: Never Smoker Alcohol Use: none Drug Use: none Marital Status: Housing status: lives with significant other Occupational Status: retired, disabled Immunizations History of Influenza Vaccine: Yes History of Tetanus Vaccine?: Yes History of Pneumococcal: Yes History of Hepatitis B Vaccine: No Allergies Coded Allergies: Ciprofloxacin (Verified Adverse Reaction, Mild, vomitting, 05/03/18) Erythromycin (Verified Adverse Reaction, Mild, vomiting, 05/03/18) Hydroxyzine (Verified Adverse Reaction, Mild, runny nose and eyes water, ) Sulfa Antibiotics (Verified Adverse Reaction, Mild, vomitting, 05/03/18) Tetracycline (Verified Adverse Reaction, Mild, vomitting, 05/03/18) Home Medications Scheduled Aspirin (Aspirin Ec), 81 MG PO QAM Atorvastatin (Lipitor), 80 MG PO HS Buspirone HCl (Buspirone HCl), 5 MG PO BID Cholecalciferol (Vitamin D3), 2,000 UNIT PO DAILY Fluticasone Propionate (Nasal) (Flonase Allergy Relief), 2 SPRAYS BENITO QAM Folic Acid (Folic Acid), 1 MG PO BID Furosemide (Lasix), 40 MG PO DAILY Gabapentin (Neurontin), 100 MG PO TID Insulin Glargine (Lantus), 60 UNITS SC QAM Insulin Lispro (Human) (Humalog), 20 UNITS SQ TIDM Iron-Vitamin C (Vitron-C), 1 TAB PO DAILY Lisinopril (Lisinopril), 2.5 MG PO QAM Metformin Hcl (Glucophage), 1,000 MG PO BID Mupirocin 2% (Bactroban 2%), 1 APPLN EXT TID Pantoprazole (Protonix), 40 MG PO BID Potassium Chloride (Micro-K Ext Rel), 20 MEQ PO QAM Potassium Chloride (Potassium Chloride Er), 1 CAP PO QPM Propranolol (Inderal), 10 MG PO TID Risperidone (Risperdal), 1 MG PO HS Venlafaxine Hcl (Venlafaxine Hcl Er), 150 MG PO QAM Warfarin Sod (Coumadin), 6 MG PO MoFr Warfarin Sodium (Warfarin Sodium), 1 TAB PO SuTuWeThSa Scheduled PRN Acetaminophen/Diphenhydramine (Tylenol Pm), 1 TAB PO HS PRN for Sleep Albuterol Sulfate (Proventil Hfa), 2 PUFFS PO Q4 PRN for Wheezing Cyclobenzaprine Hcl (Flexeril), 5 MG PO TID PRN for Muscle Spasms Ipratropium-Albuterol (Combivent Respimat), 2 PUFFS INH BID PRN for Allergic Reaction Ipratropium-Albuterol (Duoneb), 1 TREATMENT INH QID PRN for SOB/Wheezing Nitroglycerin (Nitrostat), 0.4 MG UT UD PRN for Chest Pain Ondansetron Hcl (Zofran), 4 MG PO Q6 PRN for Nausea Tramadol (Ultram), 50 MG PO Q8 PRN for Pain Review of Systems Constitutional: + fatigue, No fever, No chills, No weakness Eyes: No worsening of vision ENT: No nasal symptoms, No sore throat Respiratory: + cough (dry ), + shortness of breath, + dyspnea on exertion, No sputum, No wheezing, No hemoptysis Cardiovascular: + orthopnea, + edema, No chest pain, No palpitations Abdomen: + pain, + diarrhea, No nausea, No vomiting, No constipation, No GI bleeding Genitourinary - Female: No dysuria, No urinary frequency, No urinary urgency, No hematuria Neurologic: No weakness, No numbness/tingling Integumentary: No rash, No new/changing skin lesions, No color change Physical Exam Vital Signs Date Time Temp Pulse Resp B/P (MAP) Pulse Ox O2 Delivery O2 Flow Rate FiO2 05/03/18 14:41 121 23 112/87 94 Room Air 05/03/18 14:32 121 24 106/82 93 Room Air 05/03/18 14:27 122 24 109/78 96 Room Air 05/03/18 14:27 122 109/78 05/03/18 14:11 121 24 122/77 94 Room Air 05/03/18 13:15 124 16 98/67 97 Room Air 05/03/18 12:50 124 28 115/83 95 Room Air 05/03/18 12:09 124 05/03/18 12:03 124 25 110/88 95 Room Air 05/03/18 11:21 97 Room Air 05/03/18 11:19 123 26 130/93 96 Room Air 05/03/18 10:52 36.7 123 18 120/80 96 Room Air General Appearance: WD/WN, no apparent distress Head: normocephalic, atraumatic Eyes: normal inspection, PERRL, sclerae normal ENT: normal ENT inspection, hearing grossly normal, pharynx normal (dry mucous membranes ) Neck: supple, thyroid normal, trachea midline Respiratory/Chest: chest non-tender, no respiratory distress, no accessory muscle use, + crackles (at left lung base. otherwise clear ) Cardiovascular: normal peripheral pulses, + tachycardia, + systolic murmur Abdomen/GI: normal bowel sounds, + distended (with mild tenderness. no guarding ) Back: normal inspection Extremities/Musculoskelatal: normal inspection, no calf tenderness, no pedal edema Neurologic/Psych: no motor/sensory deficits, alert, normal mood/affect, oriented x 3 Skin: normal color, warm/dry, + pertinent finding (Healing excoriations on chest and face ) Diagnostics Laboratory Results Results Past 24 Hours Test 05/03/18 11:34 05/03/18 11:36 Range/Units White Blood Count 4.67 4.8-10.8 K/uL Red Blood Count 4.23 4.2-5.4 M/uL Hemoglobin 11.7 12.0-16.0 g/dL Hematocrit 36.6 37-47 % Mean Corpuscular Volume 86.5 80-100 fL Mean Corpuscular Hemoglobin 27.7 25-34 pg Mean Corpuscular Hemoglobin Concent 32.0 32-36 g/dl Platelet Count 184 130-400 K/uL Mean Platelet Volume 9.8 7.4-10.4 fL Neutrophils (%) (Auto) 68.7 % Lymphocytes (%) (Auto) 17.6 % Monocytes (%) (Auto) 10.5 % Eosinophils (%) (Auto) 2.8 % Basophils (%) (Auto) 0.4 % Neutrophils # (Auto) 3.21 1.4-6.5 K/uL Lymphocytes # (Auto) 0.82 1.2-3.4 K/uL Monocytes # (Auto) 0.49 0.11-0.59 K/uL Eosinophils # (Auto) 0.13 0-0.5 K/uL Basophils # (Auto) 0.02 0-0.2 K/uL RDW Standard Deviation 46.4 36.4-46.3 fL RDW Coefficient of Variation 14.8 11.5-14.5 % Immature Granulocyte % (Auto) 0.0 % Immature Granulocyte # (Auto) 0.00 0.00-0.02 K/uL Prothrombin Time 33.7 9.0-12.0 SECONDS Prothromb Time International Ratio 3.3 0.9-1.1 Sodium Level 140 136-145 mmol/L Potassium Level 3.8 3.5-5.1 mmol/L Chloride Level 106 98-107 mmol/L Carbon Dioxide Level 27 21-32 mmol/L Anion Gap 7.0 3-11 mmol/L Blood Urea Nitrogen 9 7-18 mg/dl Creatinine 0.70 0.60-1.20 mg/dl Est Creatinine Clear Calc Drug Dose 84.1 ml/min Estimated GFR () 106.1 Estimated GFR (Non- 91.6 BUN/Creatinine Ratio 12.9 10-20 Random Glucose 174 70-99 mg/dl Calcium Level 9.1 8.5-10.1 mg/dl Phosphorus Level 3.8 2.5-4.9 mg/dl Magnesium Level 1.4 1.8-2.4 mg/dl Total Bilirubin 0.5 0.2-1 mg/dl Direct Bilirubin 0.2 0-0.2 mg/dl Aspartate Amino Transf (AST/SGOT) 42 15-37 U/L Alanine Aminotransferase (ALT/SGPT) 33 12-78 U/L Alkaline Phosphatase 80 45-117 U/L Troponin I < 0.015 0-0.045 ng/ml Pro-B-Type Natriuretic Peptide 1499 0-900 pg/ml Total Protein 7.8 6.4-8.2 gm/dl Albumin 3.3 3.4-5.0 gm/dl Lipase 255 73-393 U/L Venous Blood pH 7.39 7.36-7.41 Venous Blood Partial Pressure CO2 46 38.0-50.0 mmHg Venous Blood Partial Pressure O2 33 mmHg Venous Blood HCO3 27 mmol/L Venous Blood Oxygen Saturation < 60.0 % Venous Blood Base Excess 2.0 mEq/L Diagnostic Radiology CXR: IMPRESSION: 1. Cardiomegaly without overt pulmonary edema. 2. Subsegmental left basilar opacities favor atelectasis or scarring. CT abd/pelvis: IMPRESSION: 1. Linear metallic foreign body within the lumen of small bowel. No bowel obstruction or evidence of mural perforation. No free air. Surgical consultation advised. Correlate with the patient's ingestion history. 2. Cirrhosis with portal hypertension evidenced by varices and ascites. 3. Anasarca may be due to a combination of cardiomegaly and portal hypertension. 4. Bilateral pleural effusions. 5. Right ovarian 2.4 cm cyst. This is somewhat unexpected in the postmenopausal female and could be evaluated on a nonurgent basis with ultrasound. 6. Diverticulosis. 7. Postsurgical changes of aortic valve replacement. EKG Atrial flutter with 2:1 A-V conduction at 123 bpm. Left axis deviation. Pulmonary disease pattern Impression Assessment and Plan This is a 62yoF with a PMH of diastolic heart failure 2/2 valvular disease, aortic stenosis s/p mechanical valve replacement, NAFLD cirrhosis with portal HTN, CAD (s/p CABG), DM II and other medical problems listed below who presents with abdominal distention 2 weeks and is found to have decompensated CHF and decompensated cirrhosis as well as new onset A Flutter with RVR. New onset A Flutter with RVR -In setting of reported 40 lb weight gain in 2 weeks -HR in 120s -Given 5mg IV lopressor in ED without change -Cardio consulted -Initiate sotalol 80mg BID -Diltiazem bolus/drip initiate with goal for HR <100 -Monitor QT interval with daily EKGs -Continue home dose coumadin -Monitor INR daily -Telemetry Volume overload 2/2 decompensated chronic diastolic HF -CXR without acute pulmonary edema but CT abd/pelvis with anasarca -Given 40mg IV Lasix in ED -Plan to continue 40mg IV Lasix Q8H for aggressive diuresis -Monitor and replace electrolytes as needed -Discontinue propranolol -Hold lisinopril for now -Daily weights, strict I&Os Decompensated NAFLD cirrhosis -H/o portal HTN. No history of paracentesis or decompensation -Volume overload primarily due to CHF exacerbation but CT abd/pelvis with evidence of ascites and varices -GI consulted -Per radiology review, ascites amount is thought to be <1L but enough to tap for diagnostic paracentesis -Will defer paracentesis for now in setting of INR of 3.3 -IV diuresis -Low Na diet Diarrhea -Recently completed Keflex course for UTI -C diff, stool cx pending ? metallic foreign body -CT abd/pelvis with linear metallic foreign body within the lumen of small bowel. No bowel obstruction or evidence of mural perforation. No free air. -Denies ingestion of metallic object -No abdominal pain on exam -Gen surgery consulted S/p mechanical aortic valve replacement -Continue coumadin -Goal INR 2.5-3.5 CAD (s/p CABG in 2004) -Stable -Cont aspirin, statin DM II -Last a1c of 9.6 in March -Hypoglycemic event in ED with BSG of 65 -Took 60 U of Lantus this AM and missed lunch -Hold lantus for now -SSI while in-patient -BSG AC HS HTN -Normotensive -Receiving IV lasix -Hold lisinopril for now HLD -Cont statin Asthma -Stable -Cont home inhalers, nebs PRN Chronic anemia -Hgb of 11.7 (above baseline) -Continue iron MARIAH -Uses CPAP occasionally at home GERD -Continue PPI Mood disorder -Cont Buspar, Effexor, Risperdal Excoriations on face, chest -Diagnosed with neurotic excoriations by derm -No evidence of infection -COnt Bactroban ointment TID DVT Ppx: Continue coumadin Code status: FULL PCP: Kameron Dispo: Admitted to telemetry. Plan to return home once medically stable. Patient seen in collaboration with Dr. Miranda. Please see addendum. Resuscitation Status VTE Prophylaxis Will order VTE Prophylaxis: Yes Note ATTENDING ADDENDUM Record reviewed. Patient interviewed and examined. Care coordinated with Estela Hudson PA-C. Please refer to her documentation for patient's history. Briefly, 62-year-old female with history of valvular heart disease, CHF, cirrhosis attributed to [place], and other problems. Presented to ED with tachyarrhythmia and worsening ascites. EXAM: General-adult female, appears to be chronically ill, no acute distress VS- as noted HEENT-anicteric Neck- + JVD Lungs-decreased breath sounds at bases Heart-regular, tachycardic, mechanical aortic valve sounds at base Abdomen- + BS, distended, nontender Extremities-1+ pretibial edema Neuro-alert, no asterixis DATA: Hemoglobin 11.7, white count 4670, platelet count 184,000. INR 3.3. Sodium 140, potassium 3.8, chloride 106, CO2 27, BUN 9, 7, glucose 174, magnesium 1.4, total bilirubin 0.5, AST 42, ALT 33, alkaline phosphatase 80, troponin less than 0.015, proBNP 1499. Portable chest x-ray demonstrated cardiomegaly without pulmonary edema, subsegmental atelectasis versus scarring at left base. CT of abdomen and pelvis demonstrated cirrhosis, esophageal varices, ascites, bilateral pleural effusions, linear metallic foreign body within the lumen of the small bowel without evidence of obstruction or perforation. EKG performed at 11:12 reviewed and demonstrated probable atrial flutter with 2: 1 conduction at 120/ minute, nonspecific ST and T-wave changes. ASSESSMENT AND PLAN: TACHYARRHYTHMIA Probable atrial flutter with 2:1 conduction. Cardiology consulted. May need cardioversion. CORONARY ARTERY DISEASE No anginal symptoms. Troponin negative. VALVULAR HEART DISEASE Status post mechanical aortic valve replacement. Maintain anticoagulation. CIRRHOSIS / ASCITES GI consulted. DM Insulin per protocol. FOREIGN BODY SMALL INTESTINE Consult General Surgery. Please refer to EDILIA Hudson's documentation for discussion of other issues. Leobardo Miranda MD .
[2018-05-03] MEDS ORDERED: DILTIAZEM BOLUS / DRIP IV STA (16:02)
[2018-05-03] MEDS ORDERED: POTA1CAP2 PO (16:08)
[2018-05-03] MEDS ORDERED: DILTIAZEM HCL 5 MG/ML 5 ML VIAL ONE (16:21)
[2018-05-03] MEDS ORDERED: FUROSEMIDE 40 MG/4 ML VIAL ONE (16:24)
[2018-05-03] MEDS ORDERED: BCTCR/30 EXT (16:26)
[2018-05-03] MEDS ORDERED: FERRTAB18 PO (16:26)
[2018-05-03] MEDS ORDERED: CYCL10TA6 PO (16:26)
[2018-05-03] MEDS ORDERED: CMD4 PO (16:26)
[2018-05-03] MEDS ORDERED: WARF-283 PO (16:26)
[2018-05-03] MEDS ORDERED: FUROSEMIDE INJ 40 MG in SYRINGE 0 ML IV ONE (16:30)
--- NOTE | 2018-05-03 16:33 | Gastrointestinal Consultation ---
Gastrointestinal Consultation Date of Consultation: May 03, 2018 Attending Physician: Otis Piña Consulting Physician: Veronica Elizalde Reason for Consultation: Decompensated cirrhosis History of Present Illness Patient is a 62 year old female w PMHx of fatty liver cirrhosis w portal HTN, asthma, DM II, aortic stenosis s/p AVR, CAD s/p CABG who presented to ED w c/o abdominal distension and pain which had started and progressively getting worse over last 2 weeks. She also noted to gain 40lbs in last 2 weeks, and felt SOB. She denies any fever, chills, CP. Stools recently been a bit loose. Was taking Cephalexin for UTI. She denies any hematemesis or rectal bleeding, dark tarry stools. Upon evaluation in the ED, she was noted to be in Aflutter. Her BNP was 1499. INR 3.3 on Coumadin. She had been seen by Cardiology and was planned to have a cardioversion. From cirrhosis standpoint she is usually managed by Dr. Muñoz, last visit in December 2017. She has compensated cirrhosis and never needed any diuretics nor hepatic encephalopathy meds. However she noted being started on Lasix 80mg daily recently by PCP. She denies any hx of ascites. She denies any recent increase in salty food intake nor med changes, sick contact. Her labs showed no signs of leukocytosis. + anemia similar to labs on 04/21. INR 3.3. Plt 184. BUN/Cr, Na, K , LFTs normal. Lipase normal. Troponin normal. BNP 1499 CXR w/o overt pulmonary edema, + cardiomegaly. + atelectasis or scarring. CT abd/pelvis w IV contrast: 1. Linear metallic foreign body within the lumen of small bowel. No bowel obstruction or evidence of mural perforation. No free air. Surgical consultation advised. Correlate with the patient's ingestion history. -> pt denies any ingestion of metallic objects. Denies recent surgeries other than previous hernia surgery 2. Cirrhosis with portal hypertension evidenced by varices and ascites. 3. Anasarca may be due to a combination of cardiomegaly and portal hypertension. 4. Bilateral pleural effusions. 5. Right ovarian 2.4 cm cyst. This is somewhat unexpected in the postmenopausal female and could be evaluated on a nonurgent basis with ultrasound. 6. Diverticulosis. 7. Postsurgical changes of aortic valve replacement. Past Medical/Surgical History Medical Problems: (1) Anticoagulated on Coumadin Status: Acute (2) Cirrhosis Status: Chronic (3) Current use of fpc anticoagulation Status: Acute (4) Portal hypertension Status: Acute (5) Severe anemia Status: Acute (6) Symptomatic anemia Status: Acute (7) Upper gastrointestinal bleed Status: Acute Social History Problems: (1) Mechanical heart valve present Status: Acute Past Medical History: See above Past Surgical History: See above; also hx of cholecystectomy, tonsillectomy Family History FH: CAD (coronary artery disease) BROTHER SISTER Social History Smoking Status: Never Smoker Alcohol Use: none Drug Use: none Marital Status: Occupation Status: retired, disabled Allergies Coded Allergies: Ciprofloxacin (Verified Adverse Reaction, Mild, vomitting, 05/03/18) Erythromycin (Verified Adverse Reaction, Mild, vomiting, 05/03/18) Hydroxyzine (Verified Adverse Reaction, Mild, runny nose and eyes water, ) Sulfa Antibiotics (Verified Adverse Reaction, Mild, vomitting, 05/03/18) Tetracycline (Verified Adverse Reaction, Mild, vomitting, 05/03/18) Current Medications Home Meds and Scripts Medications Dose Route/Sig Max Daily Dose Days Date Category Dose Instructions Potassium Chloride Er (Potassium Chloride) 10 Meq Cap 1 Cap PO QPM 90 05/03/18 Reported Tylenol Pm (Acetaminophen/Diphenhydramine HCl) 500 Mg/25 Mg Tab 1 Tab PO HS 05/03/18 Reported Risperdal (Risperidone) 0.5 Mg Tab 1 Mg PO HS 05/03/18 Reported Aspirin Ec (Aspirin) 81 Mg Tab 81 Mg PO QAM 05/03/18 Reported TUESDAY,TUESDAY,TUESDAY Neurontin (Gabapentin) 100 Mg Cap 100 Mg PO TID 12/20/17 Reported Proventil Hfa (Albuterol Sulfate) 108 Mcg/Act Aer 2 Puffs PO Q4 PRN 08/10/17 Reported Inderal (Propranolol HCl) 10 Mg Tab 10 Mg PO TID 08/10/17 Reported Lisinopril 2.5 Mg Tab 2.5 Mg PO QAM 08/10/17 Reported Protonix (Pantoprazole Sodium) 40 Mg Tab 40 Mg PO BID 04/01/17 Reported Duoneb (Ipratropium-Albuterol) 3 Ml Nebu 1 Treatment INH QID PRN 02/23/17 Reported Buspirone HCl 5 Mg Tab 5 Mg PO BID 01/10/17 Reported Humalog (Insulin Lispro (Human)) 100 Unit/Ml Inj 20 Units SQ TIDM 01/10/17 Reported Lantus (Insulin Glargine) 100 Unit/Ml Inj 60 Units SC QAM 01/10/17 Reported Ultram (Tramadol HCl) 50 Mg Tab 50 Mg PO Q8 PRN 01/10/17 Reported Flonase Allergy Relief (Fluticasone Propionate (Nasal)) 50 Mcg/Act Spr 2 Sprays BENITO QAM 07/26/16 Reported Zofran (Ondansetron HCl) 4 Mg Tab 4 Mg PO Q6 PRN 07/26/16 Reported Vitamin D3 (Cholecalciferol) 2,000 Unit Cap 2,000 Unit PO DAILY 07/26/16 Reported Venlafaxine Hcl Er (Venlafaxine Hcl) 150 Mg Tab 150 Mg PO QAM 07/26/16 Reported Lipitor (Atorvastatin Calcium) 80 Mg Tab 80 Mg PO HS 07/26/16 Reported Nitrostat (Nitroglycerin) 0.4 Mg Tab 0.4 Mg UT UD PRN 07/26/16 Reported Coumadin (Warfarin Sodium) 4 Mg Tab 0 PO UD 07/26/16 Reported 6 mg Tuesday and Tuesday 4 mg Tuesday, Tuesday, , Tuesday, Tuesday will bridge to lovenox Combivent Respimat (Ipratropium-Albuterol) 1 Aer Aer 2 Puffs INH BID PRN 07/26/16 Reported Folic Acid 1 Mg Tab 1 Mg PO BID 02/18/16 Reported Glucophage (Metformin Hcl) 1,000 Mg Tab 1,000 Mg PO BID 01/24/12 Reported Lasix (Furosemide) 40 Mg Tab 40 Mg PO DAILY 10/12/06 Reported Micro-K Ext Rel (Potassium Chloride) 10 Meq Capcr 20 Meq PO QAM 10/12/06 Reported Review of Systems Constitutional: No fever, No chills Respiratory: + shortness of breath, + dyspnea at rest, No cough Cardiac: No chest pain, No palpitations Abdomen: + see HPI, + diarrhea, No pain, No nausea, No vomiting, No GI bleeding Skin: No rash, No itch, No jaundice Physical Exam Date Time Temp Pulse Resp B/P (MAP) Pulse Ox O2 Delivery O2 Flow Rate FiO2 05/03/18 14:41 121 23 112/87 94 Room Air 05/03/18 14:32 121 24 106/82 93 Room Air 05/03/18 14:27 122 24 109/78 96 Room Air 05/03/18 14:27 122 109/78 05/03/18 14:11 121 24 122/77 94 Room Air 05/03/18 13:15 124 16 98/67 97 Room Air 05/03/18 12:50 124 28 115/83 95 Room Air 05/03/18 12:09 124 05/03/18 12:03 124 25 110/88 95 Room Air 05/03/18 11:21 97 Room Air 05/03/18 11:19 123 26 130/93 96 Room Air 05/03/18 10:52 36.7 123 18 120/80 96 Room Air General Appearance: WD/WN, + mild distress (appears slightly dyspneic), + obese Eyes: normal inspection, PERRL, EOMI Neck: supple, no JVD, trachea midline Respiratory/Chest: lungs clear, normal breath sounds, no respiratory distress Cardiovascular: regular rate, rhythm, no gallop, no murmur Abdomen: normal bowel sounds, non tender, + distended Extremities: normal inspection, no pedal edema, no calf tenderness Neurologic/Psych: alert, normal mood/affect, oriented x 3 Skin: normal color, no jaundice, no rash Laboratory Results Last 24 Hours Test 05/03/18 11:34 05/03/18 11:36 White Blood Count 4.67 K/uL Red Blood Count 4.23 M/uL Hemoglobin 11.7 g/dL Hematocrit 36.6 % Mean Corpuscular Volume 86.5 fL Mean Corpuscular Hemoglobin 27.7 pg Mean Corpuscular Hemoglobin Concent 32.0 g/dl Platelet Count 184 K/uL Mean Platelet Volume 9.8 fL Neutrophils (%) (Auto) 68.7 % Lymphocytes (%) (Auto) 17.6 % Monocytes (%) (Auto) 10.5 % Eosinophils (%) (Auto) 2.8 % Basophils (%) (Auto) 0.4 % Neutrophils # (Auto) 3.21 K/uL Lymphocytes # (Auto) 0.82 K/uL Monocytes # (Auto) 0.49 K/uL Eosinophils # (Auto) 0.13 K/uL Basophils # (Auto) 0.02 K/uL RDW Standard Deviation 46.4 fL RDW Coefficient of Variation 14.8 % Immature Granulocyte % (Auto) 0.0 % Immature Granulocyte # (Auto) 0.00 K/uL Prothrombin Time 33.7 SECONDS Prothromb Time International Ratio 3.3 Sodium Level 140 mmol/L Potassium Level 3.8 mmol/L Chloride Level 106 mmol/L Carbon Dioxide Level 27 mmol/L Anion Gap 7.0 mmol/L Blood Urea Nitrogen 9 mg/dl Creatinine 0.70 mg/dl Est Creatinine Clear Calc Drug Dose 84.1 ml/min Estimated GFR () 106.1 Estimated GFR (Non- 91.6 BUN/Creatinine Ratio 12.9 Random Glucose 174 mg/dl Calcium Level 9.1 mg/dl Phosphorus Level 3.8 mg/dl Magnesium Level 1.4 mg/dl Total Bilirubin 0.5 mg/dl Direct Bilirubin 0.2 mg/dl Aspartate Amino Transf (AST/SGOT) 42 U/L Alanine Aminotransferase (ALT/SGPT) 33 U/L Alkaline Phosphatase 80 U/L Troponin I < 0.015 ng/ml Pro-B-Type Natriuretic Peptide 1499 pg/ml Total Protein 7.8 gm/dl Albumin 3.3 gm/dl Lipase 255 U/L Venous Blood pH 7.39 Venous Blood Partial Pressure CO2 46 mmHg Venous Blood Partial Pressure O2 33 mmHg Venous Blood HCO3 27 mmol/L Venous Blood Oxygen Saturation < 60.0 % Venous Blood Base Excess 2.0 mEq/L Impression Patient is a 62 year old female w NAFLD cirrhosis, presented to ED w c/o increasing abd distension, pain and weight gain up to 40 lbs in 2 weeks. On evaluation found to be in Aflutter, going for cardioversion. Her CT abd/pelvis is notable for anasarca on abd wall area, some ascites but when I discussed this with the reading radiologist (Dr. Stanley), he mentioned the amount of ascites isn't much (<1L), though there is enough to tap for diagnostic paracentesis but not for therapeutic. No new meds, procedures such as abdominal surgeries, + diarrhea after Cephalexin for UTI. MELD 20 (INR driven). Plan - Check stool cx and Cdiff - Defer paracentesis given INR 3.3 and pt planned to get cardioverted. Once she is stable and we can reverse her INR we can order diagnostic paracentesis for SAAG calculation to see if her ascites is related to her heart disease or cirrhosis. Meanwhile would recommend diuretics via PO or IV form - Low Na 2g diet - ? metallic foreign body in small bowel. Pt denies ingestion of metallic object , recent surgeries. ? artifact. - Will follow along. I have seen and examined the patient with CHACHA Child. 62 yo fm with greenwood cirrhosis, admitted now with increased abdominal girth. Found to be in aflutter. History of aortic valve replacement - on outpatient coumadin. History of multiple abdominal surgeries in the past including prior hernia repairs. Last EGD in 08/02 showing phg, no reported varices. Does report some swelling for which she takes Lasix as an outpatient. Now with new symptoms of progressive Exam sig for multiple scars along her neck, and increased abd girth- nontender to palpation, multiple abdominal surgery scars, trace lower extremity edema. Labs sig for INR 3.3, high BNP. The ascites does appear to be tappable for diagnostic purposes to determine if from cirrhotic vs heart. Pt denies any recent ingestion of metal and is having bowel movements though loose and recently took antibiotics - check for c diff. Agree with futher plan of care as above.
[2018-05-03] MEDS ORDERED: NITROGLYCERIN 0.4 MG SL PER TAB CHARGE UT PRN (17:00)
[2018-05-03] MEDS ORDERED: IPRATROPIUM BROMIDE/ALBUTEROL respimat INH INH PRN (17:00)
[2018-05-03] MEDS ORDERED: CYCLOBENZAPRINE HCL 5 MG TAB PO PRN (17:00)
[2018-05-03] MEDS ORDERED: TRAMADOL HCL 50 MG TAB PO PRN (17:00)
[2018-05-03] MEDS ORDERED: ALBUT/IPRATROP 3MG/0.5MG NEB 3 ML VIAL INH PRN (17:00)
[2018-05-03] MEDS ORDERED: ALBUTEROL HFA 8 GM INHALER INH PRN (17:00)
[2018-05-03 17:29] VITALS: BP 108/72; PULSE 123; TEMP 36.8; O2SAT 97; BMI 41.2
[2018-05-03] MEDS: DILTIAZEM HCL INJ 125 MG in DEXTROSE 5% 100ML IV PRN ×3 (17:49→20:23)
[2018-05-03 17:53] VITALS: BP 124/85; PULSE 122
[2018-05-03] MEDS ORDERED: WARFARIN SOD 4 MG TAB PO ONE (18:00)
[2018-05-03 18:32] VITALS: BP 109/83; PULSE 123
[2018-05-03 18:37] VITALS: BP 107/77; PULSE 122
--- NOTE | 2018-05-03 18:41 | CARDIOLOGY CONSULTATION ---
DATE OF CONSULTATION: 05/03/2018 CONSULTATION REQUESTED BY: Conner Hudson PA-C REASON FOR CONSULTATION: Newly discovered atrial flutter with acute decompensated diastolic heart failure. HISTORY OF PRESENT ILLNESS: Mrs. Reyes is a very pleasant, yet very medically complex 62-year-old woman who normally follows with Dr. Wing Reynolds and myself as an outpatient. She presents to [facility] Emergency Department on 05/03/2018 with a complaint of increasing abdominal girth and shortness of breath. She states that for the last several weeks she has noticed that her abdomen is becoming very enlarged and distended. She did discuss this with her primary care physician and her outpatient oral diuretics were increased. She states that helped for a day or two. However, her abdomen continued to distend. Over the last few days, she has also became rather short of breath and having difficulty ambulating with the amount of volume that she has accumulated and on the morning of 05/03/2018, she came into the Emergency Department. In the ER, she was found to be significantly volume overloaded with significant abdominal distention, but also incidentally found to be in atrial flutter with rapid ventricular response. This is a new diagnosis for her and she denies experiencing any palpitations, but again states that she has been short of breath for the last several days. Otherwise, she denies experiencing any chest pain, lightheadedness, dizziness, or syncope. She has been compliant for outpatient medications and her INR has been therapeutic since 04/2017. PAST SURGICAL HISTORY: 1. Aortic valve replacement in 1998 in the setting of acute pericardial effusion and CHF. 2. Pericardiectomy. 3. Redo aortic valve replacement with a [address] [employer] mechanical prosthesis. 4. Concomitant CABG x1 with GOULD to the LAD. 5. Cardiac catheterization. 6. Hernia repair. 7. Colonoscopy. 8. Endoscopy. 9. Laparoscopic cholecystectomy. 10. Tonsillectomy. MEDICAL ILLNESSES: 1. Aortic valve replacement x2. 2. Pericarditis, status post pericardiectomy. 3. Coronary artery disease status post GOULD to the LAD. 4. Chronic left bundle branch block. 5. Diabetes. 6. Hypertension. 7. Hyperlipidemia. 8. COPD. 9. Asthma. 10. Obesity. 11. Chronic anemia. 12. Obstructive sleep apnea, on nocturnal CPAP. 13. Questionable postoperative atrial fibrillation. FAMILY HISTORY: Noncontributory. SOCIAL HISTORY: Denies any alcohol, tobacco or recreational drug use. She lives at home with her son. REVIEW OF SYSTEMS: As per HPI. All review of systems reviewed and negative at this time. ALLERGIES: 1. CIPRO. 2. AZITHROMYCIN. 3. CAT DANDER. 3. ERYTHROMYCIN. 4. HYDROXYZINE. 5. SULFA. 6. TETRACYCLINE. MEDICATIONS AN OUTPATIENT: 1. Aspirin 81 mg daily. 2. Warfarin alternating 6 mg and 4 mg doses. 3. Atorvastatin 80 mg daily. 4. Lisinopril 2.5 mg daily. 5. Propranolol 10 mg 3 times a day. 6. Cortef 10 mg daily. 7. Lasix 40 mg b.i.d. 8. Insulin as directed. 9. Metformin b.i.d. 10. Effexor daily. 11. Nebulizers as needed. 12. Protonix daily. 13. BuSpar b.i.d. 14. Neurontin. PHYSICAL EXAMINATION: VITALS: Temperature 36.7, pulse 121, respiratory rate 12, blood pressure 112/87, saturating 94% on room air. GENERAL: Awake, alert, oriented x3, in no acute distress. HEENT: Normocephalic, atraumatic. Pupils equal, round react to light and accommodation. Extraocular muscles intact. Anicteric sclerae. Moist mucous membranes. NECK: No JVD, no bruit. CARDIOVASCULAR: Regular but fast. Unable to appreciate any murmurs, rubs or gallops. PULMONARY: Clear to auscultation bilaterally except for scattered rhonchi in the bases. ABDOMEN: Significantly distended with a positive fluid wave. No rebound, guarding or tenderness. Unable to appreciate any organomegaly. EXTREMITIES: Trace bilateral lower extremity pitting edema. No clubbing or cyanosis. +2 pedal pulses bilaterally. SKIN: Warm and dry. TEST RESULTS: A 12-lead EKG performed in the Emergency Department independently reviewed at this time shows atrial flutter with near 2:1 conduction at 123 beats per minute. LABORATORY STUDIES OF SIGNIFICANCE: INR has been therapeutic in the [facility] since 04/2017. INR today of 3.3. Sodium 140, potassium 3.8, BUN 9, creatinine 0.7, and magnesium of 1.4. ProBNP of 1500 mL. IMPRESSION: 1. New-onset atrial flutter. 2. Profoundly decompensated diastolic dysfunction with a 20 kg weight gain. 3. History of aortic valve replacement x2. 4. Coronary artery disease status post coronary artery bypass graft x1. 5. History of nonalcoholic fatty liver disease, cirrhosis. 6. Obstructive sleep apnea, on nocturnal CPAP. 7. Chronic obstructive pulmonary disease. RECOMMENDATIONS: It was my pleasure to see Mrs. Reyes in consultation today. From a cardiac standpoint, atrial flutter is a new diagnosis for her and I believe this is what is likely the cause of her 20 kg fluid gain. So, the pros and cons of antiarrhythmic therapy were discussed with the patient in great lengths and given her history of cirrhosis, I believe the most prudent course of action will be to start her on sotalol 80 mg b.i.d. with daily EKGs to monitor her QT interval. Her QT interval is measured today over 600. However, her baseline is around 500 and believe today this is falsely elevated due to the flutter waves. So, we will keep a close eye on her QT interval and hopefully will remain below 550. Should she will be able to do that and if she does not spontaneously convert to normal sinus rhythm on her own, we will plan for discontinue cardioversion on the . Otherwise, she is profoundly volume overloaded at this point. I recommend Lasix 40 mg IV q. 8 hours for aggressive diuresis and closer eye will be kept on her electrolytes and replete it if necessary. Otherwise, her propranolol will be discontinued, but her warfarin and lisinopril will be continued.
[2018-05-03] MEDS: ATORVASTATIN 40 MG TAB PO SCH (19:45)
[2018-05-03] MEDS: PANTOprazole SOD 40 MG TAB PO SCH (19:45)
[2018-05-03] MEDS: POTASSIUM CHLORIDE 10 MEQ TABCR PO SCH (19:46)
[2018-05-03] MEDS: GABAPENTIN 100 MG CAP PO SCH (19:46)
[2018-05-03] MEDS: SOTALOL HCL 80 MG TAB PO SCH (19:46)
[2018-05-03] MEDS: MAGNESIUM OXIDE 400 MG TAB PO SCH (19:46)
[2018-05-03] MEDS: MUPIROCIN 2% OINT 22 GM TUBE EXT SCH (19:47)
[2018-05-03 19:58] VITALS: BP 115/83; PULSE 125; TEMP 36.9; O2SAT 94
[2018-05-03] MEDS ORDERED: GLUCOSE 10 TABS/TUBE PO PRN (20:00)
[2018-05-03] MEDS ORDERED: CARBOHYDRATES FOR HYPOGLYCEMIA PO PRN (20:00)
[2018-05-03] MEDS ORDERED: GLUCAGON FOR INJ 1 MG VIAL SQ PRN (20:00)
[2018-05-03] MEDS ORDERED: DEXTROSE 50% 50 ML SYR IV PRN (20:00)
[2018-05-03] MEDS ORDERED: GLUCOSE 40% GEL 15 GM TUBE PO PRN (20:00)
[2018-05-03] MEDS ORDERED: FUROSEMIDE INJ 40 MG in SYRINGE 0 ML IV SCH (21:00)
[2018-05-03] MEDS: INSULIN ASPART 100 UNITS/ML 3 ML PEN SC SCH (21:13)
[2018-05-03] MEDS: ACETAMINOPHEN 500 MG TAB PO PRN (21:19)
--- NOTE | 2018-05-03 22:46 | Surgery Consultation ---
Consultation Date of Consultation: May 03, 2018. Attending Physician: Leobardo Miranda M.D. History of Present Illness pt is a 62 year old female who was admitted to hospital for CHF and ascites, pt had CT scan which found-small metallic foreign body in small bowel, pt denies abdominal pain, no bloody stool, no fever, I got a call for consult the foreign body in small bowel, Past Medical/Surgical History Medical Problems: (1) Anticoagulated on Coumadin Status: Acute (2) Cirrhosis Permanent Comment: with portal hypertension, ascites Status: Chronic (3) Current use of long-term anticoagulation Status: Acute (4) Portal hypertension Status: Acute (5) Severe anemia Status: Acute (6) Symptomatic anemia Status: Acute (7) Upper gastrointestinal bleed Status: Acute Social History Problems: (1) GERD (gastroesophageal reflux disease) Status: Chronic (2) Mechanical heart valve present Status: Acute Family History FH: CAD (coronary artery disease) BROTHER SISTER Social History Smoking Status: Never Smoker Smokeless Tobacco Use: No Alcohol Use: none Drug Use: none Marital Status: Occupation Status: retired, disabled Allergies Coded Allergies: Ciprofloxacin (Verified Adverse Reaction, Mild, vomitting, 05/03/18) Erythromycin (Verified Adverse Reaction, Mild, vomiting, 05/03/18) Hydroxyzine (Verified Adverse Reaction, Mild, runny nose and eyes water, ) Sulfa Antibiotics (Verified Adverse Reaction, Mild, vomitting, 05/03/18) Tetracycline (Verified Adverse Reaction, Mild, vomitting, 05/03/18) Home Medications Scheduled Aspirin (Aspirin Ec), 81 MG PO QAM Atorvastatin (Lipitor), 80 MG PO HS Buspirone HCl (Buspirone HCl), 5 MG PO BID Cholecalciferol (Vitamin D3), 2,000 UNIT PO DAILY Fluticasone Propionate (Nasal) (Flonase Allergy Relief), 2 SPRAYS BENITO QAM Folic Acid (Folic Acid), 1 MG PO BID Furosemide (Lasix), 40 MG PO DAILY Gabapentin (Neurontin), 100 MG PO TID Insulin Glargine (Lantus), 60 UNITS SC QAM Insulin Lispro (Human) (Humalog), 20 UNITS SQ TIDM Iron-Vitamin C (Vitron-C), 1 TAB PO DAILY Lisinopril (Lisinopril), 2.5 MG PO QAM Metformin Hcl (Glucophage), 1,000 MG PO BID Mupirocin 2% (Bactroban 2%), 1 APPLN EXT TID Pantoprazole (Protonix), 40 MG PO BID Potassium Chloride (Micro-K Ext Rel), 20 MEQ PO QAM Potassium Chloride (Potassium Chloride Er), 1 CAP PO QPM Propranolol (Inderal), 10 MG PO TID Risperidone (Risperdal), 1 MG PO HS Venlafaxine Hcl (Venlafaxine Hcl Er), 150 MG PO QAM Warfarin Sod (Coumadin), 6 MG PO MoFr Warfarin Sodium (Warfarin Sodium), 1 TAB PO SuTuWeThSa Scheduled PRN Acetaminophen/Diphenhydramine (Tylenol Pm), 1 TAB PO HS PRN for Sleep Albuterol Sulfate (Proventil Hfa), 2 PUFFS PO Q4 PRN for Wheezing Cyclobenzaprine Hcl (Flexeril), 5 MG PO TID PRN for Muscle Spasms Ipratropium-Albuterol (Combivent Respimat), 2 PUFFS INH BID PRN for Allergic Reaction Ipratropium-Albuterol (Duoneb), 1 TREATMENT INH QID PRN for SOB/Wheezing Nitroglycerin (Nitrostat), 0.4 MG UT UD PRN for Chest Pain Ondansetron Hcl (Zofran), 4 MG PO Q6 PRN for Nausea Tramadol (Ultram), 50 MG PO Q8 PRN for Pain Current Inpatient Medications Current Inpatient Medications Medications (Trade) Dose Ordered Sig/[place] Route Start Time Stop Time Status Last Admin Dose Admin Ioversol (Optiray 320) 111 ml UD PRN IV 05/03/18 13:30 05/07/18 13:29 Magnesium Oxide (Mag-Ox Tab) 400 mg BID PO 05/03/18 21:00 06/02/18 20:59 05/03/18 19:46 400 MG Acetaminophen (Tylenol Tab) 650 mg Q4H PRN PO 05/03/18 15:45 06/02/18 15:44 Polyethylene (Miralax Powder Packet) 17 gm DAILY PRN PO 05/03/18 15:45 06/02/18 15:44 Sotalol HCl (Betapace Tab) 80 mg BID17 PO 05/03/18 17:00 06/02/18 16:59 05/03/18 19:46 80 MG Furosemide 40 mg/ Syringe 4 ml @ 4 mls/min TID IV 05/04/18 09:00 06/03/18 08:59 Diltiazem HCl 125 mg/Dextrose 125 ml @ 0 mls/hr Q0M PRN IV 05/03/18 16:30 06/02/18 16:29 05/03/18 20:23 15 MLS/HR Albuterol (Ventolin Hfa Inhaler) 2 puffs Q4 PRN INH 05/03/18 17:00 06/02/18 16:59 Aspirin (Ecotrin Tab) 81 mg QAM PO 05/04/18 09:00 06/03/18 08:59 Atorvastatin Calcium (Lipitor Tab) 80 mg HS PO 05/03/18 21:00 06/02/18 20:59 05/03/18 19:45 80 MG Buspirone HCl (Buspar Tab) 5 mg BID PO 05/03/18 21:00 06/02/18 20:59 05/03/18 19:45 5 MG Cyclobenzaprine HCl (Flexeril Tab) 5 mg TID PRN PO 05/03/18 17:00 06/02/18 16:59 Fluticasone Propionate (Flonase Nasal [place]) 2 sprays QAM BENITO 05/04/18 09:00 06/03/18 08:59 Folic Acid (Folvite Tab) 1 mg BID PO 05/03/18 21:00 06/02/18 20:59 05/03/18 19:45 1 MG Gabapentin (Neurontin Cap) 100 mg TID PO 05/03/18 21:00 06/02/18 20:59 05/03/18 19:46 100 MG Albuterol/ Ipratropium (Combivent Respimat Inh) 2 puffs BID PRN INH 05/03/18 17:00 06/02/18 16:59 Albuterol/ Ipratropium (Duoneb) 3 ml QID PRN INH 05/03/18 17:00 06/02/18 16:59 Nitroglycerin (Nitrostat Tab) 0.4 mg UD PRN UT 05/03/18 17:00 06/02/18 16:59 Pantoprazole Sodium (Protonix Tab) 40 mg BID PO 05/03/18 21:00 06/02/18 20:59 05/03/18 19:45 40 MG Potassium Chloride (Klor-Con M10) 20 meq QAM PO 05/04/18 09:00 06/03/18 08:59 Tramadol HCl (Ultram Tab) 50 mg Q8 PRN PO 05/03/18 17:00 06/02/18 16:59 Venlafaxine HCl (effeXOR EXTENDED REL CAP) 150 mg QAM PO 05/04/18 09:00 06/03/18 08:59 Warfarin Sodium (Coumadin Tab) 6 mg MoFr@1600 PO 05/05/18 16:00 06/04/18 15:59 Warfarin Sodium (Coumadin Tab) 4 mg SuTuWeThSa@1600 PO 05/04/18 16:00 06/03/18 15:59 Acetaminophen (Tylenol Tab) 500 mg HS PRN PO 05/03/18 17:00 06/02/18 16:59 05/03/18 21:19 500 MG Cholecalciferol (Vitamin D Tab) 2,000 inter.unit DAILY PO 05/04/18 09:00 06/03/18 08:59 Miscellaneous Information (Order Awaiting Action) 1 ea QS N/A 05/04/18 00:00 06/03/18 00:00 Mupirocin (Bactroban 2% Oint) 1 appln TID EXT 05/03/18 21:00 06/02/18 20:59 05/03/18 19:47 1 APPLN Potassium Chloride (Klor-Con M10) 10 meq QDD PO 05/03/18 18:00 06/02/18 17:59 05/03/18 19:46 10 MEQ Diphenhydramine HCl (Benadryl Cap) 25 mg HS PRN PO 05/03/18 17:45 06/02/18 17:44 05/03/18 21:19 25 MG Insulin Aspart (novoLOG ASPART) SLIDING SCALE If C... ACHS SC 05/03/18 21:00 06/02/18 20:59 05/03/18 21:13 2 UNITS Glucose (Glucose 40% Gel) 15-30 GRAMS 15 GRAMS... UD PRN PO 05/03/18 20:00 06/02/18 19:59 Glucose (Glucose Chew Tab) 4-8 Tablets 4 Tabl... UD PRN PO 05/03/18 20:00 06/02/18 19:59 Dextrose (Dextrose 50% 50ML Syringe) 25-50ML 25ML FOR ... UD PRN IV 05/03/18 20:00 818 19:59 Glucagon (Glucagon Inj) 1 mg UD PRN SQ 05/03/18 20:00 06/02/18 19:59 Carbohydrates (Carbohydrates For Hypoglycemia) 15-30 GRAMS 15 grams if BSG 54-69... UD PRN PO 05/03/18 20:00 8 19:59 Review of Systems Constitutional: No fever, No chills, No sweats, No weight loss, No weakness, No fatigue, No problem reported Eyes: No worsening of vision, No eye pain, No redness, No discharge, No diplopia, No problem reported ENT: No hearing loss, No unusual epistaxis, No nasal symptoms, No sore throat, No tinnitus, No dental problems, No trouble swallowing, No problem reported Respiratory: No cough, No sputum, No wheezing, No shortness of breath, No dyspnea on exertion, No dyspnea at rest, No hemoptysis Cardiovascular: + problem reported (CHF. AVR, A- flutter) Abdomen: + problem reported, No pain, No nausea, No vomiting, No diarrhea, No constipation, No GI bleeding Musculoskeletal: No joint pain, No muscle pain, No swelling, No calf pain, No problem reported Genitourinary - Female: No dysuria, No urinary frequency, No urinary urgency, No urinary incontinence, No urinary retention, No hematuria, No dysmenorrhea, No menorrhagia, No metrorrhagia, No rash, No vaginal bleeding, No vaginal discharge, No vaginal itching, No vulvodynia, No , No problem reported Neurologic: No memory loss, No paralysis, No weakness, No numbness/tingling, No vertigo, No balance problems, No problem reported Psychiatric: No depression symptoms, No anhedonism, No anxiety, No insomnia, No substance abuse, No problem reported Endocrine: + problem reported (DM), No fatigue, No excessive thirst, No excessive urination Hematologic / Lymphatic: + problem reported (anemia), No abnormal bleeding/ bruising, No clotting problems, No swollen lymph nodes, No night sweats Physical Exam Date Time Temp Pulse Resp B/P (MAP) Pulse Ox O2 Delivery O2 Flow Rate FiO2 05/03/18 20:00 Room Air 05/03/18 19:58 36.9 125 22 115/83 (94) 94 Room Air 05/03/18 18:37 122 107/77 (87) 05/03/18 18:32 123 109/83 (92) 05/03/18 17:53 122 124/85 (98) 05/03/18 17:29 36.8 123 20 108/72 97 Room Air 05/03/18 16:58 122 20 97/70 96 05/03/18 16:34 123 24 106/72 96 Room Air 05/03/18 14:41 121 23 112/87 94 Room Air 05/03/18 14:32 121 24 106/82 93 Room Air 05/03/18 14:27 122 24 109/78 96 Room Air 05/03/18 14:27 122 109/78 05/03/18 14:11 121 24 122/77 94 Room Air 05/03/18 13:15 124 16 98/67 97 Room Air 05/03/18 12:50 124 28 115/83 95 Room Air 05/03/18 12:09 124 05/03/18 12:03 124 25 110/88 95 Room Air 05/03/18 11:21 97 Room Air 05/03/18 11:19 123 26 130/93 96 Room Air 05/03/18 10:52 36.7 123 18 120/80 96 Room Air General Appearance: WD/WN, no apparent distress Head: normocephalic Eyes: normal inspection ENT: normal ENT inspection Neck: supple, no JVD Respiratory/Chest: chest non-tender, lungs clear Cardiovascular: regular rate, rhythm, no edema, no JVD Abdomen/GI: normal bowel sounds, non tender, soft, no organomegaly, no pulsatile mass Extremities/Musculoskelatal: normal inspection, no calf tenderness, normal capillary refill Neurologic/Psych: alert, normal mood/affect, oriented x 3 Skin: normal color, warm/dry, no rash Laboratory Results Last 24 Hours Test 05/03/18 11:34 05/03/18 11:36 05/03/18 16:12 05/03/18 16:37 White Blood Count 4.67 K/uL Red Blood Count 4.23 M/uL Hemoglobin 11.7 g/dL Hematocrit 36.6 % Mean Corpuscular Volume 86.5 fL Mean Corpuscular Hemoglobin 27.7 pg Mean Corpuscular Hemoglobin Concent 32.0 g/dl Platelet Count 184 K/uL Mean Platelet Volume 9.8 fL Neutrophils (%) (Auto) 68.7 % Lymphocytes (%) (Auto) 17.6 % Monocytes (%) (Auto) 10.5 % Eosinophils (%) (Auto) 2.8 % Basophils (%) (Auto) 0.4 % Neutrophils # (Auto) 3.21 K/uL Lymphocytes # (Auto) 0.82 K/uL Monocytes # (Auto) 0.49 K/uL Eosinophils # (Auto) 0.13 K/uL Basophils # (Auto) 0.02 K/uL RDW Standard Deviation 46.4 fL RDW Coefficient of Variation 14.8 % Immature Granulocyte % (Auto) 0.0 % Immature Granulocyte # (Auto) 0.00 K/uL Prothrombin Time 33.7 SECONDS Prothromb Time International Ratio 3.3 Sodium Level 140 mmol/L Potassium Level 3.8 mmol/L Chloride Level 106 mmol/L Carbon Dioxide Level 27 mmol/L Anion Gap 7.0 mmol/L Blood Urea Nitrogen 9 mg/dl Creatinine 0.70 mg/dl Est Creatinine Clear Calc Drug Dose 84.1 ml/min Estimated GFR () 106.1 Estimated GFR (Non- 91.6 BUN/Creatinine Ratio 12.9 Random Glucose 174 mg/dl Calcium Level 9.1 mg/dl Phosphorus Level 3.8 mg/dl Magnesium Level 1.4 mg/dl Total Bilirubin 0.5 mg/dl Direct Bilirubin 0.2 mg/dl Aspartate Amino Transf (AST/SGOT) 42 U/L Alanine Aminotransferase (ALT/SGPT) 33 U/L Alkaline Phosphatase 80 U/L Troponin I < 0.015 ng/ml Pro-B-Type Natriuretic Peptide 1499 pg/ml Total Protein 7.8 gm/dl Albumin 3.3 gm/dl Lipase 255 U/L Venous Blood pH 7.39 Venous Blood Partial Pressure CO2 46 mmHg Venous Blood Partial Pressure O2 33 mmHg Venous Blood HCO3 27 mmol/L Venous Blood Oxygen Saturation < 60.0 % Venous Blood Base Excess 2.0 mEq/L Bedside Glucose 65 mg/dl 98 mg/dl Test 7/18/18 20:59 Bedside Glucose 188 mg/dl Assessment & Plan CT scan(05/03/2018)-FINDINGS: Hearing Examiner topogram: Cholecystectomy clips. Median sternotomy wires. Coil qing noted in the pelvis likely from hernia repair. Lung bases: Suggestion of underlying emphysema. Dependent opacities with volume loss likely passive atelectasis secondary to the presence of bilateral small pleural effusions. Multichamber enlargement of the heart. Coronary artery and mitral annular calcification. Prosthetic aortic valve. No pericardial effusion. Liver: Cirrhotic morphology of the liver. No liver lesion allowing for the single phase of contrast. Patent hepatic vasculature. Biliary: Mild biliary ductal prominence likely a reservoir effect in the post cholecystectomy state. Gallbladder surgically absent. Pancreas: Mild parenchymal atrophy. Spleen: Top normal in size measuring nearly 13 cm in maximal sagittal dimension. Adrenal glands: Normal. Kidneys and ureters: Normal. No hydronephrosis. Bladder: Incompletely evaluated secondary to underdistention. Pelvic organs: Uterus normal. 2.4 cm cyst suggested in the right ovary with a peripheral focus of mural calcification (series 3 image 330). Left ovary normal. Bowel: Diverticulosis of the sigmoid colon. The appendix is normal. No bowel obstruction. Hyperdensity noted in the small bowel, indeterminate (series 3 image 320). This may be metallic. This is within the lumen of the bowel and does not appear to have traversed the bowel wall. No regional extraluminal gas. Peritoneal cavity: Small moderate amount of abdominopelvic ascites. No free intraperitoneal gas. Lymph nodes: No enlarged lymph nodes in the abdomen or pelvis. Vasculature: Atherosclerosis of the normal caliber abdominal aorta. IVC patent. Varices noted in the para esophageal/esophageal region as well as recanalization of the umbilical vein. Abdominal wall: Severe abdominal wall edema consistent with anasarca. Epigastric hernia containing fat and ascites. Small hernia to the right of midline in the epigastrium containing fat and the dilated periumbilical vein. A second smaller hernia is noted inferior to this (series 3 image 232). Postsurgical changes of hernia repair in the infraumbilical abdomen. Musculoskeletal: Degenerative changes of the spine. IMPRESSION: 1. Linear metallic foreign body within the lumen of small bowel. No bowel obstruction or evidence of mural perforation. No free air. Surgical consultation advised. Correlate with the patient's ingestion history. 2. Cirrhosis with portal hypertension evidenced by varices and ascites. 3. Anasarca may be due to a combination of cardiomegaly and portal hypertension. 4. Bilateral pleural effusions. Assessment: pt is a 62 year old female who is consult for foreign in small bowel , pt denies any abdominal pain, no bloody stool, IMP: foreign body in small bowel base on pt has no symptoms, most likely it will pass with stool, no indication for surgery intervention now, sign off today, F/U out-pt in 2 weeks in my clinic [phone] I also indicated pt should go to ER if pt develops abdominal pain in the future , pt understood, I answered all questions,
[2018-05-03 23:30] VITALS: BP 101/73; PULSE 118; TEMP 37; O2SAT 94
[2018-05-04] VITALS (11 sets, daily range): BP systolic 106–127; BP diastolic 71–92; PULSE 107–133; TEMP 36.6–36.9; O2SAT 91–95
[2018-05-04] MEDS: DILTIAZEM HCL INJ 125 MG in DEXTROSE 5% 100ML IV PRN ×4 (00:39→19:42)
[2018-05-04 01:21] LABS: BASO % 0.3 %; BASO ABS # 0.02 K/uL (0-0.2); EOS % 2.7 %; EOS ABS # 0.16 K/uL (0-0.5); HEMATOCRIT 33.6 % (37-47); IG# 0.01 K/uL (0.00-0.02); LYMPH % 15.3 %; MEAN CELL VOLUME 86.4 fL (80-100); MEAN CORPUSCULAR HEMOGLOBIN 28.3 pg (25-34); MEAN CORPUSCULAR HGB CONC 32.7 g/dl (32-36); MEAN PLATELET VOLUME 9.4 fL (7.4-10.4); MONO % 11.4 %; MONO ABS # 0.67 K/uL (0.11-0.59); NEUT % 70.1 %; NEUT ABS # 4.13 K/uL (1.4-6.5); PLATELET COUNT 174 K/uL (130-400); RED CELL DISTRIBUTION WIDTH CV 14.9 % (11.5-14.5); RED CELL DISTRIBUTION WIDTH SD 46.6 fL (36.4-46.3); WHITE BLOOD COUNT 5.89 K/uL (4.8-10.8)
[2018-05-04 01:29] LABS: INR 3.1 (0.9-1.1)
[2018-05-04] MEDS: ALBUMIN HUMAN 25% 12.5 GM/50 ML VIAL IV SCH ×2 (01:46→01:59)
[2018-05-04 01:50] LABS: CALCIUM 8.2 mg/dl (8.5-10.1); CREATININE 0.68 mg/dl (0.60-1.20); POTASSIUM 3.5 mmol/L (3.5-5.1); TOTAL PROTEIN 7.1 gm/dl (6.4-8.2)
[2018-05-04] MEDS ORDERED: MAGNESIUM SULFATE 1GM / D5W 100 ML IV STA (02:05)
[2018-05-04] MEDS ORDERED: POTASSIUM CHLORIDE 10 MEQ TABCR PO ONE (02:40)
[2018-05-04] MEDS: FUROSEMIDE INJ 40 MG in SYRINGE 0 ML IV SCH ×3 (07:50→19:37)
[2018-05-04] MEDS: INSULIN ASPART 100 UNITS/ML 3 ML PEN SC SCH ×4 (07:51→21:06)
[2018-05-04] MEDS: CHOLECALCIFEROL 1000 INTER.UNIT TAB PO SCH (07:52)
[2018-05-04] MEDS: ASPIRIN 81 MG ECTAB PO SCH (07:52)
[2018-05-04] MEDS: PANTOprazole SOD 40 MG TAB PO SCH ×2 (07:52→19:39)
[2018-05-04] MEDS: POTASSIUM CHLORIDE 10 MEQ TABCR PO SCH ×2 (07:53→16:38)
[2018-05-04] MEDS: SOTALOL HCL 80 MG TAB PO SCH ×2 (07:53→16:38)
[2018-05-04] MEDS: VENLAFAXINE HCL XR 150 MG CAPXR PO SCH (07:53)
[2018-05-04] MEDS: GABAPENTIN 100 MG CAP PO SCH ×3 (07:54→19:39)
[2018-05-04] MEDS: FLUTICASONE PROPIONATE NA SPR 16 GM BTL NAE SCH (07:54)
[2018-05-04] MEDS: MUPIROCIN 2% OINT 22 GM TUBE EXT SCH ×3 (07:54→19:36)
[2018-05-04] MEDS: MAGNESIUM OXIDE 400 MG TAB PO SCH ×2 (07:54→19:40)
--- NOTE | 2018-05-04 10:21 | Cardiology Follow-Up ---
Subjective Subjective Date of Service: May 04, 2018. Pt evaluation today including: conversation w/ patient, physical exam, chart review, lab review, review of studies, review of inpatient medication list Additional Details: Pt seen and examined, oob in chair. States that she is feeling somewhat better now. Slight reduction in abdominal distention. Still with delgado. Denies cp, palpitations, lightheadedness or dizziness. Tele reviewed: appear to be atrial flutter with variable conduction. 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 Status: Acute (4) Portal hypertension Status: Acute (5) Severe anemia Status: Acute (6) Symptomatic anemia Status: Acute (7) Upper gastrointestinal bleed Status: Acute Social History Problems: (1) GERD (gastroesophageal reflux disease) Status: Chronic (2) Mechanical heart valve present Status: Acute Review of Systems Constitutional: No fever, No chills Respiratory: + shortness of breath, + dyspnea at rest, No cough Cardiac: No see HPI, No chest pain, No orthopnea, No PND, No edema, No claudication, No palpitations, No problem reported Endo: + fatigue Objective Vital Signs Last Vital Signs Documentation Date Time Temp Pulse Resp B/P (MAP) Pulse Ox O2 Delivery O2 Flow Rate FiO2 05/04/18 08:29 116 121/80 (94) 05/04/18 08:20 Room Air 05/04/18 07:44 36.6 19 94 Physical Exam: General Appearance: WD/WN, no apparent distress, + obese Eyes: bilateral eyes normal inspection, bilateral eyes PERRL, bilateral eyes EOMI ENT: normal ENT inspection, hearing grossly normal, pharynx normal Neck: supple, no adenopathy, thyroid normal, no JVD Respiratory/Chest: chest non-tender, normal breath sounds, no respiratory distress, no accessory muscle use, + decreased breath sounds (bases) Cardiovascular: regular rate, rhythm, no edema, no JVD, + tachycardia, + gallop /S4 Abdomen: normal bowel sounds, non tender, soft, + distended, + pertinent finding (+fluid wave) Extremities: normal inspection, no calf tenderness, + pedal edema (trace) Neurologic/Psychiatric: coater smoking pipe II-XII nml as tested, no motor/sensory deficits, alert, normal mood/affect, oriented x 3 Skin: normal color, warm/dry, no rash Lymphatic: no adenopathy Assessment and Plan 1. atrial flutter new onset rates still elevated which is expected given the reentry nature currently sotalol loading and tolerating well, QTc decreased from 05/03, cont 80mg bid npo after midnight for possible cardioversion in AM 2. acute decompensated diastolic dysfunction abdominal distention improving still significantly overloaded cont tid lasix strict I/O's and daily weight ON THE SAME SCALE follow and replete lytes as necessary with goal K >4 and Mg >2 repeat echo
--- NOTE | 2018-05-04 11:25 | Gastroenterology Progress Note ---
Progress Note Date of Service: May 04, 2018 Subjective Pt evaluation today including: conversation w/ patient, physical exam, chart review, lab review, review of inpatient medication list Pt is getting Cardizem gtt and Sotalol, HR still in 110s. She denies any dizziness, CP, SOB, abd pain, n/v. She felt abd is less distended. Receiving Furosemide IV. Bowels still loose, Cdiff negative, stool cx pending. Review of Systems Constitutional: No fever, No chills Respiratory: No cough, No shortness of breath Cardiac: No chest pain Abdomen: + see HPI, + diarrhea, No pain, No nausea, No vomiting Medications Current Inpatient Medications Medications (Trade) Dose Ordered Sig/[place] Route Start Time Stop Time Status Last Admin Dose Admin Ioversol (Optiray 320) 111 ml UD PRN IV 05/03/18 13:30 05/07/18 13:29 Magnesium Oxide (Mag-Ox Tab) 400 mg BID PO 05/03/18 21:00 06/02/18 20:59 05/04/18 07:54 400 MG Acetaminophen (Tylenol Tab) 650 mg Q4H PRN PO 05/03/18 15:45 06/02/18 15:44 Polyethylene (Miralax Powder Packet) 17 gm DAILY PRN PO 05/03/18 15:45 06/02/18 15:44 Sotalol HCl (Betapace Tab) 80 mg BID17 PO 05/03/18 17:00 06/02/18 16:59 05/04/18 07:53 80 MG Furosemide 40 mg/ Syringe 4 ml @ 4 mls/min TID IV 05/04/18 09:00 06/03/18 08:59 05/04/18 07:50 4 MLS/MIN Diltiazem HCl 125 mg/Dextrose 125 ml @ 0 mls/hr Q0M PRN IV 05/03/18 16:30 06/02/18 16:29 05/04/18 07:52 10 MLS/HR Albuterol (Ventolin Hfa Inhaler) 2 puffs Q4 PRN INH 05/03/18 17:00 06/02/18 16:59 Aspirin (Ecotrin Tab) 81 mg QAM PO 05/04/18 09:00 06/03/18 08:59 05/04/18 07:52 81 MG Atorvastatin Calcium (Lipitor Tab) 80 mg HS PO 05/03/18 21:00 06/02/18 20:59 05/03/18 19:45 80 MG Buspirone HCl (Buspar Tab) 5 mg BID PO 05/03/18 21:00 06/02/18 20:59 05/04/18 07:53 5 MG Cyclobenzaprine HCl (Flexeril Tab) 5 mg TID PRN PO 05/03/18 17:00 06/02/18 16:59 Fluticasone Propionate (Flonase Nasal [place]) 2 sprays QAM BENITO 05/04/18 09:00 06/03/18 08:59 Folic Acid (Folvite Tab) 1 mg BID PO 05/03/18 21:00 06/02/18 20:59 05/04/18 07:53 1 MG Gabapentin (Neurontin Cap) 100 mg TID PO 05/03/18 21:00 06/02/18 20:59 05/04/18 07:54 100 MG Albuterol/ Ipratropium (Combivent Respimat Inh) 2 puffs BID PRN INH 05/03/18 17:00 06/02/18 16:59 Albuterol/ Ipratropium (Duoneb) 3 ml QID PRN INH 05/03/18 17:00 06/02/18 16:59 Nitroglycerin (Nitrostat Tab) 0.4 mg UD PRN UT 05/03/18 17:00 06/02/18 16:59 Pantoprazole Sodium (Protonix Tab) 40 mg BID PO 05/03/18 21:00 06/02/18 20:59 05/04/18 07:52 40 MG Potassium Chloride (Klor-Con M10) 20 meq QAM PO 05/04/18 09:00 06/03/18 08:59 05/04/18 07:53 20 MEQ Tramadol HCl (Ultram Tab) 50 mg Q8 PRN PO 05/03/18 17:00 06/02/18 16:59 Venlafaxine HCl (effeXOR EXTENDED REL CAP) 150 mg QAM PO 05/04/18 09:00 06/03/18 08:59 05/04/18 07:53 150 MG Warfarin Sodium (Coumadin Tab) 6 mg MoFr@1600 PO 05/05/18 16:00 06/04/18 15:59 Warfarin Sodium (Coumadin Tab) 4 mg SuTuWeThSa@1600 PO 05/04/18 16:00 06/03/18 15:59 Acetaminophen (Tylenol Tab) 500 mg HS PRN PO 05/03/18 17:00 06/02/18 16:59 05/03/18 21:19 500 MG Cholecalciferol (Vitamin D Tab) 2,000 inter.unit DAILY PO 05/04/18 09:00 06/03/18 08:59 05/04/18 07:52 2,000 INTER.UNIT Miscellaneous Information (Order Awaiting Action) 1 ea QS N/A 05/04/18 00:00 06/03/18 00:00 Mupirocin (Bactroban 2% Oint) 1 appln TID EXT 05/03/18 21:00 06/02/18 20:59 05/04/18 07:54 1 APPLN Potassium Chloride (Klor-Con M10) 10 meq QDD PO 05/03/18 18:00 06/02/18 17:59 05/03/18 19:46 10 MEQ Diphenhydramine HCl (Benadryl Cap) 25 mg HS PRN PO 05/03/18 17:45 06/02/18 17:44 05/03/18 21:19 25 MG Insulin Aspart (novoLOG ASPART) SLIDING SCALE If C... ACHS SC 05/03/18 21:00 06/02/18 20:59 05/04/18 07:51 4 UNITS Glucose (Glucose 40% Gel) 15-30 GRAMS 15 GRAMS... UD PRN PO 05/03/18 20:00 06/02/18 19:59 Glucose (Glucose Chew Tab) 4-8 Tablets 4 Tabl... UD PRN PO 05/03/18 20:00 06/02/18 19:59 Dextrose (Dextrose 50% 50ML Syringe) 25-50ML 25ML FOR ... UD PRN IV 05/03/18 20:00 06/02/18 19:59 Glucagon (Glucagon Inj) 1 mg UD PRN SQ 05/03/18 20:00 06/02/18 19:59 Carbohydrates (Carbohydrates For Hypoglycemia) 15-30 GRAMS 15 grams if BSG 54-69... UD PRN PO 05/03/18 20:00 06/02/18 19:59 Objective Vital Signs Date Time Temp Pulse Resp B/P (MAP) Pulse Ox O2 Delivery O2 Flow Rate FiO2 05/04/18 10:30 112 114/80 (91) 05/04/18 08:29 116 121/80 (94) 05/04/18 08:20 Room Air 05/04/18 08:05 119 110/92 (98) 05/04/18 07:55 120 122/75 (91) 05/04/18 07:44 36.6 119 19 116/84 (95) 94 Room Air 05/04/18 03:29 36.7 118 20 121/71 (88) 93 05/03/18 23:30 37.0 118 16 101/73 (82) 94 Room Air 05/03/18 20:00 Room Air 05/03/18 19:58 36.9 125 22 115/83 (94) 94 Room Air 05/03/18 18:37 122 107/77 (87) 05/03/18 18:32 123 109/83 (92) 05/03/18 17:53 122 124/85 (98) 05/03/18 17:29 36.8 123 20 108/72 97 Room Air 05/03/18 16:58 122 20 97/70 96 05/03/18 16:34 123 24 106/72 96 Room Air 05/03/18 14:41 121 23 112/87 94 Room Air 05/03/18 14:32 121 24 106/82 93 Room Air 05/03/18 14:27 122 24 109/78 96 Room Air 05/03/18 14:27 122 109/78 05/03/18 14:11 121 24 122/77 94 Room Air 05/03/18 13:15 124 16 98/67 97 Room Air 05/03/18 12:50 124 28 115/83 95 Room Air 05/03/18 12:09 124 05/03/18 12:03 124 25 110/88 95 Room Air 05/03/18 11:21 97 Room Air 05/03/18 11:19 123 26 130/93 96 Room Air Physical Exam General Appearance: WD/WN, no apparent distress, + obese Eyes: normal inspection, PERRL, EOMI Neck: supple, no JVD, trachea midline Respiratory/Chest: normal breath sounds, no respiratory distress, no accessory muscle use Cardiovascular: regular rate, rhythm, no gallop, no murmur, + tachycardia Abdomen: normal bowel sounds, non tender, soft Extremities: normal inspection, no pedal edema, no calf tenderness Neurologic/Psych: alert, normal mood/affect, oriented x 3 Skin: normal color, no jaundice, no rash Laboratory Results Last 24 Hours Test 05/03/18 11:34 05/03/18 11:36 05/03/18 16:12 05/03/18 16:37 White Blood Count 4.67 K/uL Red Blood Count 4.23 M/uL Hemoglobin 11.7 g/dL Hematocrit 36.6 % Mean Corpuscular Volume 86.5 fL Mean Corpuscular Hemoglobin 27.7 pg Mean Corpuscular Hemoglobin Concent 32.0 g/dl Platelet Count 184 K/uL Mean Platelet Volume 9.8 fL Neutrophils (%) (Auto) 68.7 % Lymphocytes (%) (Auto) 17.6 % Monocytes (%) (Auto) 10.5 % Eosinophils (%) (Auto) 2.8 % Basophils (%) (Auto) 0.4 % Neutrophils # (Auto) 3.21 K/uL Lymphocytes # (Auto) 0.82 K/uL Monocytes # (Auto) 0.49 K/uL Eosinophils # (Auto) 0.13 K/uL Basophils # (Auto) 0.02 K/uL RDW Standard Deviation 46.4 fL RDW Coefficient of Variation 14.8 % Immature Granulocyte % (Auto) 0.0 % Immature Granulocyte # (Auto) 0.00 K/uL Prothrombin Time 33.7 SECONDS Prothromb Time International Ratio 3.3 Sodium Level 140 mmol/L Potassium Level 3.8 mmol/L Chloride Level 106 mmol/L Carbon Dioxide Level 27 mmol/L Anion Gap 7.0 mmol/L Blood Urea Nitrogen 9 mg/dl Creatinine 0.70 mg/dl Est Creatinine Clear Calc Drug Dose 84.1 ml/min Estimated GFR () 106.1 Estimated GFR (Non- 91.6 BUN/Creatinine Ratio 12.9 Random Glucose 174 mg/dl Calcium Level 9.1 mg/dl Phosphorus Level 3.8 mg/dl Magnesium Level 1.4 mg/dl Total Bilirubin 0.5 mg/dl Direct Bilirubin 0.2 mg/dl Aspartate Amino Transf (AST/SGOT) 42 U/L Alanine Aminotransferase (ALT/SGPT) 33 U/L Alkaline Phosphatase 80 U/L Troponin I < 0.015 ng/ml Pro-B-Type Natriuretic Peptide 1499 pg/ml Total Protein 7.8 gm/dl Albumin 3.3 gm/dl Lipase 255 U/L Venous Blood pH 7.39 Venous Blood Partial Pressure CO2 46 mmHg Venous Blood Partial Pressure O2 33 mmHg Venous Blood HCO3 27 mmol/L Venous Blood Oxygen Saturation < 60.0 % Venous Blood Base Excess 2.0 mEq/L Bedside Glucose 65 mg/dl 98 mg/dl Test 05/03/18 20:59 05/04/18 01:11 05/04/18 07:14 Bedside Glucose 188 mg/dl 160 mg/dl White Blood Count 5.89 K/uL Red Blood Count 3.89 M/uL Hemoglobin 11.0 g/dL Hematocrit 33.6 % Mean Corpuscular Volume 86.4 fL Mean Corpuscular Hemoglobin 28.3 pg Mean Corpuscular Hemoglobin Concent 32.7 g/dl Platelet Count 174 K/uL Mean Platelet Volume 9.4 fL Neutrophils (%) (Auto) 70.1 % Lymphocytes (%) (Auto) 15.3 % Monocytes (%) (Auto) 11.4 % Eosinophils (%) (Auto) 2.7 % Basophils (%) (Auto) 0.3 % Neutrophils # (Auto) 4.13 K/uL Lymphocytes # (Auto) 0.90 K/uL Monocytes # (Auto) 0.67 K/uL Eosinophils # (Auto) 0.16 K/uL Basophils # (Auto) 0.02 K/uL RDW Standard Deviation 46.6 fL RDW Coefficient of Variation 14.9 % Immature Granulocyte % (Auto) 0.2 % Immature Granulocyte # (Auto) 0.01 K/uL Prothrombin Time 31.8 SECONDS Prothromb Time International Ratio 3.1 Sodium Level 139 mmol/L Potassium Level 3.5 mmol/L Chloride Level 104 mmol/L Carbon Dioxide Level 29 mmol/L Anion Gap 6.0 mmol/L Blood Urea Nitrogen 9 mg/dl Creatinine 0.68 mg/dl Est Creatinine Clear Calc Drug Dose 86.5 ml/min Estimated GFR () 107.1 Estimated GFR (Non- 92.4 BUN/Creatinine Ratio 12.5 Random Glucose 167 mg/dl Lactic Acid Level 1.0 mmol/L Calcium Level 8.2 mg/dl Magnesium Level 1.7 mg/dl Total Bilirubin 0.6 mg/dl Aspartate Amino Transf (AST/SGOT) 32 U/L Alanine Aminotransferase (ALT/SGPT) 29 U/L Alkaline Phosphatase 71 U/L Total Protein 7.1 gm/dl Albumin 3.0 gm/dl Globulin 4.1 gm/dl Albumin/Globulin Ratio 0.7 Assessment and Plan Patient is a 62 year old female w NAFLD cirrhosis, presented to ED w c/o increasing abd distension, pain and weight gain up to 40 lbs in 2 weeks. On evaluation found to be in Aflutter, going for cardioversion. She has a hx of AVR as well. BNP up 1499. Her CT abd/pelvis is notable for anasarca on abd wall area, some ascites but when I discussed this with the reading radiologist (Dr. Stanley), he mentioned the amount of ascites isn't much (<1L), though there is enough to tap for diagnostic paracentesis but not for therapeutic. No new meds, procedures such as abdominal surgeries, + diarrhea after Cephalexin for UTI. MELD 20 (INR driven). Receiving IV Furosemide. She feels abd is less distended. Currently on Sotalol, HR still in 110s. Plan - Cdiff negative, stool cx pending. If no infections and diarrhea persist may try Questran for possible bile acid diarrhea. - Defer paracentesis given INR 3.3 and pt planned to get cardioverted. Once she is stable and we can reverse her INR we can order diagnostic paracentesis for SAAG calculation to see if her ascites is related to her heart disease or cirrhosis. Meanwhile would recommend diuretics via PO or IV form -> continue to defer paracentesis unless she is having s/s of SBP (encephalopathy, abd pain, fever, chills, leukocytosis), or if ascites not improved. - Low Na 2g diet - ? metallic foreign body in small bowel. Pt denies ingestion of metallic object , recent surgeries. ? artifact. - Stable from cirrhosis standpoint but will follow along. I have seen and examined the patient with CHACHA Child. 62 yo fm with nafld cirrhosis, meld 20 (but driven by INR of 3.0 on coumadin), admitted with increasing abdominal girth 05/03/18. Found to have aflutter on admission, on medical cardioversion currently with sotalol, still with tachycardia and BNP elevation. With imaging now showing ?metallic body in distal small bowel, anasarca, and newer onset of ascites but not a large amount. ?metallic body- no history of ingestion, seen by surgery - given asymptomatic no intervetnion at this time. Abdominal girth- suspect this could be from ascites and occuring from underlying cardiac issue - diuresed overnite with some improvement in abdominal girth. Diarrhea improving slowly, c diff negative, not on lactulose, could be bile acid diarrhea given prior cholecystectomy. Trial of Questran if diarrhea persists. Ascites - image guided paracentesis if she becomes stable and inr can be reversed for evaluation of saag and total protein to determine if cardiac vs cirrhotic ascites. Overall in regards to her cirrhosis, she is stable at this time, high INR is from coumadin. Last EGD In 2017 with phg. Now imaging suggestive of varices but no active bleeding noted. Agree with further plan of care as per above.
[2018-05-04] MEDS ORDERED: PERFLUTREN LIPID MICROSPHERE (DEFINITY) IV ONE (12:04)
--- NOTE | 2018-05-04 13:41 | ECHOCARDIOGRAM REPORT ---
*NOTICE TO RECEIVING REPUBL[employer] AGENCY This information is strictly Confidential and protected under [place] law. [place] law prohibits you from making any further disclosure of this information unless further disclosure is expressly permitted by the written consent of the person to whom it pertains or is authorized by law. A general authorization for the release of medical or other information is not sufficient for this purpose. Hospital accepts no responsibility if the information is made available to any other person, INCLUDING THE PATIENT. Interpretation Summary * Name: OZZY CABRAL Study Date: 05/04/2018 11:09 AM BP: 115/78 mmHg * Patient Location: .2E\S\E201\S\1 HR: 107 * : 1955 (M/d/yyyy) Gender: Female Height: 60 in * Age: 62 yrs Ethnicity: [place] Weight: 212 lb * Ordering Physician: Sonido Adams * Referring Physician: Self, Referred * Performed By: Betsy Escalante [facility] * * Reason For Study: A-FLUTTER * BSA: 1.9 m2 * -- Conclusions -- * Normal LV chamber size with moderate concentric LVH. * Normal LV systolicfunction, EF 55-60%. * Abnormal septal wall motion abnormality consistent with post-operative state, otherwise, no segmental left ventricular wall motion abnormalities are noted. * Grade I diastolic dysfunction. * There is a mechanical aortic valve. Doppler evidence of regurgitation is probably normal for this prosthetic aortic valve. The gradient is normal for this prosthetic aortic valve. * There is severe mitral annular calcification. Calcified mitral apparatus. Significant mitral regurgitation is absent. There is no mitral valve stenosis. * Severe tricuspid regurgitation. * Severe left atrial enlargement. Procedure Details * A complete two-dimensional transthoracic echocardiogram was performed (2D, M-mode, Doppler and color flow Doppler). * The study was technically difficult. * A contrast injection of Definity was performed to improve assessment of LV function. * Contrast was injected into an intravenous site in the right arm. * One vial of Definity ultrasound contrast was diluted in normal saline to a total volume of 10 ml. A total of '2' ml of solution was administered during imaging. * Lot # [id number] of Definity utilized for procedure. * Expiration date MARCH 04. * The attending nurse who injected the contrast agent was CIARA Lomas RN. Left Ventricle * The left ventricle is normal in size. * There is moderate concentric left ventricular hypertrophy. * Left ventricular systolic function is normal. * Ejection Fraction = 55-60%. * No segmental left ventricular wall motion abnormalities are noted. * Septal motion is consistent with post-operative state. Right Ventricle * The right ventricular cavity size is normal (basal dimension <4.2 cm in right ventricular apical 4-chamber view). * The right ventricular systolic function is normal as assessed by tricuspid annular plane systolic excursion (TAPSE) (normal >1.5 cm). Atria * The left atrium is severely dilated. * The right atrium is severely dilated. * No ASD detected; PFO is not assessed. Mitral Valve * There is severe mitral annular calcification. * Calcified mitral apparatus. * There is no mitral valve stenosis. * Significant mitral regurgitation is absent. Tricuspid Valve * The tricuspid valve anatomy is normal. * There is no tricuspid stenosis. * There is severe tricuspid regurgitation. Aortic Valve * There is a mechanical aortic valve. * Doppler evidence of regurgitation is probably normal for this prosthetic aortic valve. * The gradient is normal for this prosthetic aortic valve. Pulmonic Valve * The pulmonary valve is not well seen, but the Doppler examination is normal without significant regurgitation or stenosis. Great Vessels * The aortic root is normal size. Pericardium/Pleural * There is no pericardial effusion. Left Ventricular Diastolic Function * Grade I diastolic dysfunction, (abnormal relaxation pattern). MMode 2D Measurements and Calculations IVSd 1.7 cm IVSs 1.7 cm LVIDd 4.9 cm LVIDs 4.2 cm LVPWd 1.4 cm LVPWs 1.6 cm IVS/LVPW 1.2 FS 14.1 % EDV(Teich) 110.7 ml ESV(Teich) 77.4 ml EF(Teich) 30.1 % EDV(cubed) 114.8 ml ESV(cubed) 72.7 ml EF(cubed) 36.7 % % IVS thick 0.66 % % LVPW thick 12.5 % LV mass(C)d 324.0 grams LV mass(C)dI 169.3 grams/m\S\2 LV mass(C)s 284.9 grams LV mass(C)sI 148.9 grams/m\S\2 SV(Teich) 33.3 ml SI(Teich) 17.4 ml/m\S\2 SV(cubed) 42.2 ml SI(cubed) 22.0 ml/m\S\2 Ao root diam 2.2 cm Ao root area 3.9 cm\S\2 LA dimension 5.0 cm LA/Ao 2.2 LVOT diam 2.0 cm LVOT area 3.2 cm\S\2 LVAd ap4 33.1 cm\S\2 LVLd ap4 7.8 cm EDV(MOD-sp4) 117.4 ml EDV(sp4-el) 119.6 ml LVAs ap4 24.4 cm\S\2 LVLs ap4 7.1 cm ESV(MOD-sp4) 71.8 ml ESV(sp4-el) 71.0 ml EF(MOD-sp4) 38.8 % EF(sp4-el) 40.6 % LVAd ap2 30.0 cm\S\2 LVLd ap2 7.3 cm EDV(MOD-sp2) 101.6 ml EDV(sp2-el) 104.2 ml LVAs ap2 22.6 cm\S\2 LVLs ap2 7.0 cm ESV(MOD-sp2) 59.1 ml ESV(sp2-el) 62.0 ml EF(MOD-sp2) 41.8 % EF(sp2-el) 40.5 % LVLd %diff -6.05 % EDV(MOD-bp) 111.3 ml LVLs %diff -2.40 % ESV(MOD-bp) 63.8 ml EF(MOD-bp) 42.7 % SV(MOD-sp4) 45.6 ml SI(MOD-sp4) 23.8 ml/m\S\2 SV(MOD-sp2) 42.4 ml SI(MOD-sp2) 22.2 ml/m\S\2 SV(MOD-bp) 47.5 ml SI(MOD-bp) 24.8 ml/m\S\2 SV(sp4-el) 48.6 ml SI(sp4-el) 25.4 ml/m\S\2 SV(sp2-el) 42.2 ml SI(sp2-el) 22.1 ml/m\S\2 Doppler Measurements and Calculations MV E max andre 170.4 cm/sec MV P1/2t max andre 180.1 cm/sec MV P1/2t 78.3 msec MVA(P1/2t) 2.8 cm\S\2 MV dec slope 673.5 cm/sec\S\2 MV dec time 0.23 sec Ao V2 max 257.7 cm/sec Ao max PG 26.6 mmHg Ao max PG (full) 24.4 mmHg AYO(V,A) 0.93 cm\S\2 AYO(V,D) 0.93 cm\S\2 LV V1 max PG 2.2 mmHg LV V1 max 73.8 cm/sec MR max andre 465.4 cm/sec MR max PG 86.7 mmHg PA V2 max 75.3 cm/sec PA max PG 2.3 mmHg TR max andre 170.7 cm/sec
[2018-05-04] MEDS ORDERED: WARFARIN SOD 4 MG TAB PO SCH (16:00)
[2018-05-04] MEDS: ACETAMINOPHEN 500 MG TAB PO PRN (19:37)
[2018-05-04] MEDS: ATORVASTATIN 40 MG TAB PO SCH (19:38)
--- NOTE | 2018-05-04 22:08 | Progress Note ---
Medicine Progress Note Date & Time of Visit: May 04, 2018 at 09:40 . Subjective CC: Follow-up visit for atrial flutter, CHF, cirrhosis, and other problems. HPI: No fever. Persistent narrow-complex tachyarrhythmia with rate 110-120. No CP. No cough or SOB. No nausea or vomiting. Persistent abdominal distention. No diarrhea, melena, hematochezia. No dysuria. ROS: as noted above in HPI . Objective Last 8 Hrs Date Time Temp Pulse Resp B/P (MAP) Pulse Ox O2 Delivery O2 Flow Rate FiO2 05/04/18 20:00 Room Air 05/04/18 19:49 36.9 107 20 120/85 (97) 93 Room Air 05/04/18 16:00 36.7 112 20 127/89 (102) 95 Room Air Physical Exam: General- adult female, appears to be chronically ill, no acute distress HEENT-anicteric Neck- + JVD Lungs- decreased breath sounds at bases Heart- regular, tachycardic, mechanical aortic valve sounds at base Abdomen- + BS, distended, nontender Extremities- 1+ pretibial edema Neuro- alert, no asterixis . Laboratory Results: Last 24 Hours Test 05/04/18 01:11 05/04/18 07:14 05/04/18 11:10 05/04/18 16:35 White Blood Count 5.89 K/uL Red Blood Count 3.89 M/uL Hemoglobin 11.0 g/dL Hematocrit 33.6 % Mean Corpuscular Volume 86.4 fL Mean Corpuscular Hemoglobin 28.3 pg Mean Corpuscular Hemoglobin Concent 32.7 g/dl Platelet Count 174 K/uL Mean Platelet Volume 9.4 fL Neutrophils (%) (Auto) 70.1 % Lymphocytes (%) (Auto) 15.3 % Monocytes (%) (Auto) 11.4 % Eosinophils (%) (Auto) 2.7 % Basophils (%) (Auto) 0.3 % Neutrophils # (Auto) 4.13 K/uL Lymphocytes # (Auto) 0.90 K/uL Monocytes # (Auto) 0.67 K/uL Eosinophils # (Auto) 0.16 K/uL Basophils # (Auto) 0.02 K/uL RDW Standard Deviation 46.6 fL RDW Coefficient of Variation 14.9 % Immature Granulocyte % (Auto) 0.2 % Immature Granulocyte # (Auto) 0.01 K/uL Prothrombin Time 31.8 SECONDS Prothromb Time International Ratio 3.1 Sodium Level 139 mmol/L Potassium Level 3.5 mmol/L Chloride Level 104 mmol/L Carbon Dioxide Level 29 mmol/L Anion Gap 6.0 mmol/L Blood Urea Nitrogen 9 mg/dl Creatinine 0.68 mg/dl Est Creatinine Clear Calc Drug Dose 86.5 ml/min Estimated GFR () 107.1 Estimated GFR (Non- 92.4 BUN/Creatinine Ratio 12.5 Random Glucose 167 mg/dl Lactic Acid Level 1.0 mmol/L Calcium Level 8.2 mg/dl Magnesium Level 1.7 mg/dl Total Bilirubin 0.6 mg/dl Aspartate Amino Transf (AST/SGOT) 32 U/L Alanine Aminotransferase (ALT/SGPT) 29 U/L Alkaline Phosphatase 71 U/L Total Protein 7.1 gm/dl Albumin 3.0 gm/dl Globulin 4.1 gm/dl Albumin/Globulin Ratio 0.7 Bedside Glucose 160 mg/dl 240 mg/dl 207 mg/dl Test 05/04/18 20:51 Bedside Glucose 247 mg/dl Assessment & Plan ATRIAL FLUTTER Presented with atrial flutter with 2:1 conduction. Cardiology consulted. Sotalol initiated. On diltiazem infusion. May need cardioversion. Maintain anticoagulation- currently on warfarin. CORONARY ARTERY DISEASE No anginal symptoms. CHF Normal systolic function. Chronic CHF, probably due to combination of valvular heart disease, diastolic dysfunction, right-sided heart failure. Wosening ascites could be due to worsening right-sided CHF. Titrate diuretics. VALVULAR HEART DISEASE S/P mech AVR. Maintain anticoagulation. CIRRHOSIS / ASCITES Worsening ascites. Uncertain whether ascites due to cirrhosis, CHF, other pathology. Consider diagnostic paracentesis once cardiac issues are stabilized- will need bridge anticoagulation with IV heparin. DM TYPE 2 FBS today = 160. ANEMIA Chronic, multifactorial. Follow H/H. VTE PROPHYLAXIS Continue warfarin. DISPOSITION To be determined. Internal Medicine follow-up with Dr. Melo. . Current Inpatient Medications: Current Inpatient Medications Medications (Trade) Dose Ordered Sig/[place] Route Start Time Stop Time Status Last Admin Dose Admin Ioversol (Optiray 320) 111 ml UD PRN IV 05/03/18 13:30 05/07/18 13:29 Magnesium Oxide (Mag-Ox Tab) 400 mg BID PO 05/03/18 21:00 06/02/18 20:59 05/04/18 19:40 400 MG Acetaminophen (Tylenol Tab) 650 mg Q4H PRN PO 05/03/18 15:45 06/02/18 15:44 Polyethylene (Miralax Powder Packet) 17 gm DAILY PRN PO 05/03/18 15:45 06/02/18 15:44 Sotalol HCl (Betapace Tab) 80 mg BID17 PO 05/03/18 17:00 06/02/18 16:59 05/04/18 16:38 80 MG Furosemide 40 mg/ Syringe 4 ml @ 4 mls/min TID IV 05/04/18 09:00 06/03/18 08:59 05/04/18 19:37 4 MLS/MIN Diltiazem HCl 125 mg/Dextrose 125 ml @ 0 mls/hr Q0M PRN IV 05/03/18 16:30 06/02/18 16:29 05/04/18 19:42 10 MLS/HR Albuterol (Ventolin Hfa Inhaler) 2 puffs Q4 PRN INH 05/03/18 17:00 06/02/18 16:59 Aspirin (Ecotrin Tab) 81 mg QAM PO 05/04/18 09:00 06/03/18 08:59 05/04/18 07:52 81 MG Atorvastatin Calcium (Lipitor Tab) 80 mg HS PO 05/03/18 21:00 06/02/18 20:59 05/04/18 19:38 80 MG Buspirone HCl (Buspar Tab) 5 mg BID PO 05/03/18 21:00 06/02/18 20:59 05/04/18 19:38 5 MG Cyclobenzaprine HCl (Flexeril Tab) 5 mg TID PRN PO 05/03/18 17:00 06/02/18 16:59 Fluticasone Propionate (Flonase Nasal [place]) 2 sprays QAM BENITO 05/04/18 09:00 06/03/18 08:59 Folic Acid (Folvite Tab) 1 mg BID PO 05/03/18 21:00 06/02/18 20:59 05/04/18 19:40 1 MG Gabapentin (Neurontin Cap) 100 mg TID PO 05/03/18 21:00 06/02/18 20:59 05/04/18 19:39 100 MG Albuterol/ Ipratropium (Combivent Respimat Inh) 2 puffs BID PRN INH 05/03/18 17:00 06/02/18 16:59 Albuterol/ Ipratropium (Duoneb) 3 ml QID PRN INH 05/03/18 17:00 06/02/18 16:59 Nitroglycerin (Nitrostat Tab) 0.4 mg UD PRN UT 05/03/18 17:00 06/02/18 16:59 Pantoprazole Sodium (Protonix Tab) 40 mg BID PO 05/03/18 21:00 06/02/18 20:59 05/04/18 19:39 40 MG Potassium Chloride (Klor-Con M10) 20 meq QAM PO 05/04/18 09:00 06/03/18 08:59 05/04/18 07:53 20 MEQ Tramadol HCl (Ultram Tab) 50 mg Q8 PRN PO 05/03/18 17:00 06/02/18 16:59 Venlafaxine HCl (effeXOR EXTENDED REL CAP) 150 mg QAM PO 05/04/18 09:00 06/03/18 08:59 05/04/18 07:53 150 MG Warfarin Sodium (Coumadin Tab) 6 mg MoFr@1600 PO 05/05/18 16:00 06/04/18 15:59 Warfarin Sodium (Coumadin Tab) 4 mg SuTuWeThSa@1600 PO 05/04/18 16:00 06/03/18 15:59 05/04/18 16:39 4 MG Acetaminophen (Tylenol Tab) 500 mg HS PRN PO 05/03/18 17:00 06/02/18 16:59 05/04/18 19:37 500 MG Cholecalciferol (Vitamin D Tab) 2,000 inter.unit DAILY PO 05/04/18 09:00 06/03/18 08:59 05/04/18 07:52 2,000 INTER.UNIT Miscellaneous Information (Order Awaiting Action) 1 ea QS N/A 05/04/18 00:00 06/03/18 00:00 Mupirocin (Bactroban 2% Oint) 1 appln TID EXT 7/18/18 21:00 06/02/18 20:59 05/04/18 19:36 1 APPLN Potassium Chloride (Klor-Con M10) 10 meq QDD PO 05/03/18 18:00 06/02/18 17:59 05/04/18 16:38 10 MEQ Diphenhydramine HCl (Benadryl Cap) 25 mg HS PRN PO 05/03/18 17:45 06/02/18 17:44 05/03/18 21:19 25 MG Insulin Aspart (novoLOG ASPART) SLIDING SCALE If C... ACHS SC 05/03/18 21:00 06/02/18 20:59 05/04/18 21:06 4 UNITS Glucose (Glucose 40% Gel) 15-30 GRAMS 15 GRAMS... UD PRN PO 05/03/18 20:00 06/02/18 19:59 Glucose (Glucose Chew Tab) 4-8 Tablets 4 Tabl... UD PRN PO 05/03/18 20:00 06/02/18 19:59 Dextrose (Dextrose 50% 50ML Syringe) 25-50ML 25ML FOR ... UD PRN IV 05/03/18 20:00 06/02/18 19:59 Glucagon (Glucagon Inj) 1 mg UD PRN SQ 05/03/18 20:00 06/02/18 19:59 Carbohydrates (Carbohydrates For Hypoglycemia) 15-30 GRAMS 15 grams if BSG 54-69... UD PRN PO 05/03/18 20:00 06/02/18 19:59
[2018-05-05] VITALS (15 sets, daily range): BP systolic 102–132; BP diastolic 71–91; PULSE 72–110; TEMP 36.5–36.8; O2SAT 92–97
[2018-05-05 05:59] LABS: INR 2.8 (0.9-1.1)
[2018-05-05] MEDS: INSULIN ASPART 100 UNITS/ML 3 ML PEN SC SCH ×4 (06:07→20:36)
[2018-05-05 06:13] LABS: HEMOGLOBIN 11.3 g/dL (12.0-16.0); MEAN CORPUSCULAR HEMOGLOBIN 27.8 pg (25-34); MEAN CORPUSCULAR HGB CONC 32.3 g/dl (32-36); MEAN PLATELET VOLUME 9.8 fL (7.4-10.4); PLATELET COUNT 208 K/uL (130-400); RED CELL DISTRIBUTION WIDTH SD 47.1 fL (36.4-46.3); WHITE BLOOD COUNT 5.81 K/uL (4.8-10.8)
[2018-05-05 06:19] LABS: CALCIUM 8.1 mg/dl (8.5-10.1); CREATININE 0.69 mg/dl (0.60-1.20)
[2018-05-05] MEDS: SOTALOL HCL 80 MG TAB PO SCH ×2 (08:10→17:02)
[2018-05-05] MEDS: VENLAFAXINE HCL XR 150 MG CAPXR PO SCH (08:10)
[2018-05-05] MEDS: GABAPENTIN 100 MG CAP PO SCH ×3 (08:11→20:34)
[2018-05-05] MEDS: PANTOprazole SOD 40 MG TAB PO SCH ×2 (08:11→20:34)
[2018-05-05] MEDS: MAGNESIUM OXIDE 400 MG TAB PO SCH ×2 (08:11→20:34)
[2018-05-05] MEDS: CHOLECALCIFEROL 1000 INTER.UNIT TAB PO SCH (08:11)
[2018-05-05] MEDS: POTASSIUM CHLORIDE 10 MEQ TABCR PO SCH ×2 (08:12→17:02)
[2018-05-05] MEDS: ASPIRIN 81 MG ECTAB PO SCH (08:13)
[2018-05-05] MEDS: MUPIROCIN 2% OINT 22 GM TUBE EXT SCH ×3 (08:14→20:33)
[2018-05-05] MEDS: FLUTICASONE PROPIONATE NA SPR 16 GM BTL NAE SCH (08:14)
[2018-05-05] MEDS: FUROSEMIDE INJ 40 MG in SYRINGE 0 ML IV SCH ×3 (08:48→20:34)
[2018-05-05] MEDS ORDERED: MIDAZOLAM HCL 5 MG/ML 1 ML VIAL ONE (08:58)
[2018-05-05] MEDS ORDERED: FENTANYL CITRATE INJ 50 MCG/1 ML 2 ML VIAL ONE (08:59)
--- NOTE | 2018-05-05 09:19 | Pre Sedation Assessment ---
Pre Sedation Assessment General Date of Sedation: May 05, 2018. Vital Signs Past 12 Hours Date Time Temp Pulse Resp B/P (MAP) Pulse Ox O2 Delivery O2 Flow Rate FiO2 05/05/18 06:49 36.5 110 18 131/82 (98) 96 Room Air 05/05/18 02:52 36.6 108 19 114/75 (88) 93 Room Air 05/04/18 23:59 Room Air 05/04/18 23:15 36.7 109 18 106/76 (86) 93 Room Air Review Cardiovascular: no edema, no gallop, no JVD, normal peripheral pulses, + tachycardia, + irregularly irregular Lungs: chest non-tender, lungs clear, normal breath sounds, no respiratory distress, no accessory muscle use Pre-Sedation Airway Assessment Smoking Status: Never Smoker Oral Cavity: Dentures Notes The planned sedation has been discussed with the patient. Informed Consent was obtained. I have identified the patient, determined the appropriateness of sedation and have assessed the patient immediately prior to the procedure. All medicine(s) and interventions are by my order.
--- NOTE | 2018-05-05 09:24 | Progress Note ---
Progress Note Date of Service May 05, 2018. (Yessy Mena CRNP) 05/05/18 (Veronica Elizalde M.D.) Progress Note Pt was seen and evaluated, chart reviewed. No acute events noted overnight. GI quick note as she is to have cardiac procedure. Offers no GI complaints, specifically no abdominal pain and improved diarrhea. No black/bloody stools/ emesis. No fever, chills, CP, SOB No acute distress No scleral icterus Abd soft, non-distended with good bowel sounds. No tenderness on palpation Alert, oriented without asterixis 62 year old w/ NAFLD cirrhosis admitted with fluid overload found to be in aflutter w/ plan for cardioversion today. She is stable from a GI standpoint. No GI changes. Please continue plan as arranged yesterday. Please call with any acute changes, questions or concerns. (Yessy Mena CRNP) I have seen and examined the patient. S/p cardioversion with paddles. Feeling better. Diuresed overnite. Improved abdominal girth. No other complaints. Would suggest a diagnostic paracentesis at a later date for further evaluation of her ascites. Further follow-up with Dr. Maurer as previously scheduled. (Veronica Elizalde M.D.)
--- NOTE | 2018-05-05 09:34 | Post Sedation Assessment ---
Post Sedation Assessment General Date of Sedation May 05, 2018. Vital Signs: Vital Signs Past 12 Hours Date Time Temp Pulse Resp B/P (MAP) Pulse Ox O2 Delivery O2 Flow Rate FiO2 05/05/18 06:49 36.5 110 18 131/82 (98) 96 Room Air 05/05/18 02:52 36.6 108 19 114/75 (88) 93 Room Air 05/04/18 23:59 Room Air 05/04/18 23:15 36.7 109 18 106/76 (86) 93 Room Air Post Procedure Recovery Score Activity: (2) Moves 4 extremities * Respiration: (2) Deep breath/cough Circulation: (2) +/-20% PreAnes Value Consciousness: (1) Arouseable (by name) Oxygen Saturation: (2) > 92% On Room Air Discharge Sedation Level of Care: Higher Level of Care (recover in room 201 per protocol) Post Sedation Plan On clinical assessment, the patient appears to have tolerated the sedation without complications. Patient is recovering as anticipated. Patient will continue to be monitored by nursing and may be discharged when sedation discharge criteria are met per below protocol. Upon Completions of procedure and additional 15 minutes continue every 5 minute vital signs and the P.A.R. score; then discharge to a Phase I or Fast Track to Phase II per the following guidelines: * Discharge Patient to appropriate Phase II area if PAR is 8 or greater or return to pre- procedure baseline. The post - procedure orders will be as directed. * If PAR score is less than 8 or not return to pre-procedure baseline then patient will follow Phase I monitoring till PAR is reached for Phase II. The Phase I may be done in procedure room or may call to secure a Phase I area. * If naloxone or flumazenil are used for reversal, hold in Phase I for an additional 60 -120 minutes before discharge to Phase II. Please call the Sedation Physician to re-evaluate and complete post-note for discharge to Phase II area. Do NOT discharge from procedure sedation or Phase 1 until post- sedation evaluation note is complete by procedure /sedation MD Sedation Discharge Instructions to be given to the patient at discharge to home.
--- NOTE | 2018-05-05 09:37 | [facility] Post Operative Brief Note ---
Immediate Operative Summary Operative Date May 05, 2018. Pre-Operative Diagnosis atrial flutter with rvr Post-Operative Diagnosis same Procedure(s) Performed DC cardioversion Start time: 923 stop time: 930 Surgeon Bryan [employer] Analyst Surgeon(s) Sonia CLIFTON Estimated Blood Loss none Findings Consistent with Post-Op Diagnosis Specimens none conscious sedation with a total of Versed 1 mg and Fentanyl 50 mcg Drains None Anesthesia Type IV Sedat Cons RN Only Complication(s) none
--- NOTE | 2018-05-05 09:38 | Procedure Note ---
Procedure Note Date of Service May 05, 2018. Procedure Note Informed consent obtained: pt prepped in room 201 Conscious sedation achieved with Versed 1mg and Fentanyl 25mcg 360 J of direct current energy applied with successful cardioversion to sinus rhythm pt tolerated well no complications to be recovered in room 201 Plan: cont sotalol load and aggressive diuresis
[2018-05-05] MEDS ORDERED: NURSING VERBAL MED ORDER ONE ×3 (10:00→11:45)
--- NOTE | 2018-05-05 10:30 | Cardiology Follow-Up ---
Subjective Subjective Date of Service: May 05, 2018. Pt evaluation today including: conversation w/ patient, physical exam, chart review, lab review, review of studies, review of inpatient medication list Additional Details: Pt seen and examined, states that she's been "ok" overnight. Denies cp, palpitations, lightheadedness or dizziness. SOB not significantly improved. Abdominal distention slightly improved. Tele reviewed: atrial flutter without other arrhythmia or periods of sinus. Problem List Medical Problems: (1) Anticoagulated on Coumadin Status: Acute (2) Cirrhosis Permanent Comment: with portal hypertension, ascites Status: Chronic (3) Current use of usp anticoagulation Status: Acute (4) Portal hypertension Status: Acute (5) Severe anemia Status: Acute (6) Symptomatic anemia Status: Acute (7) Upper gastrointestinal bleed Status: Acute Social History Problems: (1) GERD (gastroesophageal reflux disease) Status: Chronic (2) Mechanical heart valve present Status: Acute Review of Systems Constitutional: No fever, No chills Respiratory: + shortness of breath, + dyspnea on exertion, No see HPI, No cough , No sputum, No wheezing, No dyspnea at rest, No hemoptysis, No problem reported Cardiac: + edema, No see HPI, No chest pain, No orthopnea, No PND, No claudication, No palpitations, No problem reported Endo: + fatigue Objective Vital Signs Last Vital Signs Documentation Date Time Temp Pulse Resp B/P (MAP) Pulse Ox O2 Delivery O2 Flow Rate FiO2 05/05/18 09:37 73 17 110/75 95 Nasal Cannula 3.0 05/05/18 06:49 36.5 Physical Exam: General Appearance: WD/WN, no apparent distress, + obese Eyes: bilateral eyes normal inspection, bilateral eyes PERRL, bilateral eyes EOMI ENT: normal ENT inspection, hearing grossly normal, pharynx normal Neck: supple, no adenopathy, thyroid normal, no JVD, no carotid bruits, trachea midline Respiratory/Chest: chest non-tender, normal breath sounds, no respiratory distress, no accessory muscle use, + decreased breath sounds (bases) Cardiovascular: regular rate, rhythm, no edema, no JVD, + tachycardia, + gallop /S4 Abdomen: normal bowel sounds, non tender, soft, + distended, + pertinent finding (+fluid wave) Extremities: normal inspection, no calf tenderness, + pedal edema (trace) 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 atrial flutter new onset s/p successful cardioversion tolerated well the hope would be that with [facility] of sinus rhythm increased renal perfusion would improve diuresis cont with sotalol load has now received 4 doses QTc now less than 500 ms with [facility] of sinus 2. acute decompensated diastolic dysfunction abdominal distention improving still significantly overloaded cont tid lasix strict I/O's and daily weight ON THE SAME SCALE, numbers do not appear accurate follow and replete lytes as necessary with goal K >4 and Mg >2
--- NOTE | 2018-05-05 12:34 | Clinical Documentation Query ---
CLINICAL DOCUMENTATION QUERY Most recent progress note states, "acute decompensated diastolic dysfunction." This terminology does not code to acute decompensated diastolic CHF by CMS coding indexes. In your clinical opinion is this patient being managed for: ( x ) Acute on chronic diastolic heart failure ( ) Not Agree Please clarify and document your clinical opinion in the progress notes and discharge summary. Terms such as "probable", "suspected", "likely", "questionable", "possible", or "still to be ruled out" are acceptable. IF IN AGREEMENT, YOU MUST DOCUMENT ABOVE DIAGNOSTIC STATEMENT IN DAILY PROGRESS NOTES AND DISCHARGE SUMMARY. This document is not part of the patient's record. Thank You, Daniel Marques, RN [phone] & via qlicCONNECT
--- NOTE | 2018-05-05 12:42 | Clinical Documentation Query ---
CLINICAL DOCUMENTATION QUERY Most recent progress note by cardiology states, "acute decompensated diastolic dysfunction." This terminology does not code to acute decompensated diastolic CHF by CMS coding indexes. Most recent progress note by internal medicine state; "CHF Normal systolic function. Chronic CHF, probably due to combination of valvular heart disease, diastolic dysfunction, right-sided heart failure. Wosening ascites could be due to worsening right-sided CHF. Titrate diuretics." Acute diastolic CHF has been stated on H&P, but fear if terminology is not carried though to DC summary it may be lost. In your clinical opinion is this patient being managed for: ( x ) Acute on chronic diastolic heart failure ( ) Not Agree Please clarify and document your clinical opinion in the progress notes and discharge summary. Terms such as "probable", "suspected", "likely", "questionable", "possible", or "still to be ruled out" are acceptable. IF IN AGREEMENT, YOU MUST DOCUMENT ABOVE DIAGNOSTIC STATEMENT IN DAILY PROGRESS NOTES AND DISCHARGE SUMMARY. This document is not part of the patient's record. Thank You, Daniel Marques, RN [phone] & via qlicCONNECT
[2018-05-05] MEDS ORDERED: WARFARIN SOD 6 MG TAB PO SCH (16:00)
[2018-05-05] MEDS: ATORVASTATIN 40 MG TAB PO SCH (20:34)
--- NOTE | 2018-05-05 21:40 | Progress Note ---
Medicine Progress Note Date & Time of Visit: May 05, 2018 at 09:20 . Subjective CC: Follow-up visit for atrial flutter, CHF, cirrhosis, and other problems. HPI: No fever. Persistent narrow-complex tachyarrhythmia with rate around 110. No CP. No cough or SOB. No nausea or vomiting. Persistent abdominal distention. No diarrhea, melena, hematochezia. No dysuria. ROS: as noted above in HPI . Objective Last 8 Hrs Date Time Temp Pulse Resp B/P (MAP) Pulse Ox O2 Delivery O2 Flow Rate FiO2 05/05/18 19:29 36.7 93 22 108/79 (89) 95 Room Air 05/05/18 16:00 Room Air 05/05/18 15:30 36.7 87 20 132/80 (97) 92 Room Air Physical Exam: General- lying in bed, no acute distress Lungs- few basilar rales; no respiratory distress Cardiovascular- RRR, tachy; mechanical aortic valve sounds; no gallop appreciated; + JVD; 1+ pretibial edema Abdomen- distended, + bowel sounds, soft, nontender Extremities- no cyanosis; no calf tenderness Neuro- alert, oriented Skin- warm & dry . Laboratory Results: Last 24 Hours Test 05/05/18 05:16 05/05/18 05:59 05/05/18 11:38 05/05/18 16:19 White Blood Count 5.81 K/uL Red Blood Count 4.07 M/uL Hemoglobin 11.3 g/dL Hematocrit 35.0 % Mean Corpuscular Volume 86.0 fL Mean Corpuscular Hemoglobin 27.8 pg Mean Corpuscular Hemoglobin Concent 32.3 g/dl RDW Standard Deviation 47.1 fL RDW Coefficient of Variation 15.0 % Platelet Count 208 K/uL Mean Platelet Volume 9.8 fL Prothrombin Time 29.1 SECONDS Prothromb Time International Ratio 2.8 Sodium Level 136 mmol/L Potassium Level 4.0 mmol/L Chloride Level 104 mmol/L Carbon Dioxide Level 26 mmol/L Anion Gap 6.0 mmol/L Blood Urea Nitrogen 11 mg/dl Creatinine 0.69 mg/dl Est Creatinine Clear Calc Drug Dose 86.1 ml/min Estimated GFR () 106.6 Estimated GFR (Non- 92.0 BUN/Creatinine Ratio 16.0 Random Glucose 154 mg/dl Calcium Level 8.1 mg/dl Hepatitis C Antibody Screen NEG Bedside Glucose 185 mg/dl 184 mg/dl 291 mg/dl Test 05/05/18 19:53 Bedside Glucose 250 mg/dl Assessment & Plan ATRIAL FLUTTER Presented with atrial flutter with 2:1 conduction. Cardiology consulted. Started on diltiazem infusion and sotalol. Persistent narrow complex tachyarrhythmia. Cardioversion planned for this morning. Maintain anticoagulation- currently on warfarin. CORONARY ARTERY DISEASE No anginal symptoms. CHF Normal systolic function. Chronic CHF, probably due to combination of valvular heart disease, diastolic dysfunction, right-sided heart failure. Worsening ascites could be due to acute on chronic right-sided CHF. Continue diuretics. VALVULAR HEART DISEASE S/P mech AVR. Maintain anticoagulation. CIRRHOSIS / ASCITES Worsening ascites. Uncertain whether ascites due to cirrhosis, CHF, other pathology. Consider diagnostic paracentesis once cardiac issues are stabilized- will need bridge anticoagulation with IV heparin. DM TYPE 2 FBS today = 185. ANEMIA Chronic, multifactorial. Follow H/H. VTE PROPHYLAXIS Continue warfarin. DISPOSITION To be determined. Internal Medicine follow-up with Dr. Melo. . Current Inpatient Medications: Current Inpatient Medications Medications (Trade) Dose Ordered Sig/[place] Route Start Time Stop Time Status Last Admin Dose Admin Ioversol (Optiray 320) 111 ml UD PRN IV 05/03/18 13:30 05/07/18 13:29 Magnesium Oxide (Mag-Ox Tab) 400 mg BID PO 05/03/18 21:00 06/02/18 20:59 05/05/18 20:34 400 MG Acetaminophen (Tylenol Tab) 650 mg Q4H PRN PO 05/03/18 15:45 06/02/18 15:44 Polyethylene (Miralax Powder Packet) 17 gm DAILY PRN PO 05/03/18 15:45 06/02/18 15:44 Sotalol HCl (Betapace Tab) 80 mg BID17 PO 05/03/18 17:00 06/02/18 16:59 05/05/18 17:02 80 MG Furosemide 40 mg/ Syringe 4 ml @ 4 mls/min TID IV 05/04/18 09:00 06/03/18 08:59 05/05/18 20:34 4 MLS/MIN Albuterol (Ventolin Hfa Inhaler) 2 puffs Q4 PRN INH 05/03/18 17:00 8/17/18 16:59 Aspirin (Ecotrin Tab) 81 mg QAM PO 05/04/18 09:00 06/03/18 08:59 05/05/18 08:13 81 MG Atorvastatin Calcium (Lipitor Tab) 80 mg HS PO 05/03/18 21:00 06/02/18 20:59 05/05/18 20:34 80 MG Buspirone HCl (Buspar Tab) 5 mg BID PO 05/03/18 21:00 06/02/18 20:59 05/05/18 20:34 5 MG Cyclobenzaprine HCl (Flexeril Tab) 5 mg TID PRN PO 05/03/18 17:00 06/02/18 16:59 Fluticasone Propionate (Flonase Nasal [place]) 2 sprays QAM BENITO 05/04/18 09:00 06/03/18 08:59 Folic Acid (Folvite Tab) 1 mg BID PO 05/03/18 21:00 06/02/18 20:59 05/05/18 20:34 1 MG Gabapentin (Neurontin Cap) 100 mg TID PO 05/03/18 21:00 06/02/18 20:59 05/05/18 20:34 100 MG Albuterol/ Ipratropium (Combivent Respimat Inh) 2 puffs BID PRN INH 05/03/18 17:00 06/02/18 16:59 Albuterol/ Ipratropium (Duoneb) 3 ml QID PRN INH 05/03/18 17:00 06/02/18 16:59 Nitroglycerin (Nitrostat Tab) 0.4 mg UD PRN [place] 05/03/18 17:00 06/02/18 16:59 Pantoprazole Sodium (Protonix Tab) 40 mg BID PO 05/03/18 21:00 06/02/18 20:59 05/05/18 20:34 40 MG Potassium Chloride (Klor-Con M10) 20 meq QAM PO 05/04/18 09:00 06/03/18 08:59 05/05/18 08:12 20 MEQ Tramadol HCl (Ultram Tab) 50 mg Q8 PRN PO 05/03/18 17:00 06/02/18 16:59 Venlafaxine HCl (effeXOR EXTENDED REL CAP) 150 mg QAM PO 05/04/18 09:00 06/03/18 08:59 05/05/18 08:10 150 MG Warfarin Sodium (Coumadin Tab) 6 mg MoFr@1600 PO 05/05/18 16:00 06/04/18 15:59 05/05/18 15:04 6 MG Warfarin Sodium (Coumadin Tab) 4 mg SuTuWeThSa@1600 PO 05/04/18 16:00 06/03/18 15:59 05/04/18 16:39 4 MG Acetaminophen (Tylenol Tab) 500 mg HS PRN PO 05/03/18 17:00 06/02/18 16:59 05/04/18 19:37 500 MG Cholecalciferol (Vitamin D Tab) 2,000 inter.unit DAILY PO 05/04/18 09:00 06/03/18 08:59 05/05/18 08:11 2,000 INTER.UNIT Miscellaneous Information (Order Awaiting Action) 1 ea QS N/A 05/04/18 00:00 06/03/18 00:00 Mupirocin (Bactroban 2% Oint) 1 appln TID EXT 05/03/18 21:00 06/02/18 20:59 05/05/18 20:33 1 APPLN Potassium Chloride (Klor-Con M10) 10 meq QDD PO 05/03/18 18:00 06/02/18 17:59 05/05/18 17:02 10 MEQ Diphenhydramine HCl (Benadryl Cap) 25 mg HS PRN PO 05/03/18 17:45 06/02/18 17:44 05/03/18 21:19 25 MG Insulin Aspart (novoLOG ASPART) SLIDING SCALE If C... ACHS SC 05/03/18 21:00 06/02/18 20:59 05/05/18 20:36 4 UNITS Glucose (Glucose 40% Gel) 15-30 GRAMS 15 GRAMS... UD PRN PO 05/03/18 20:00 06/02/18 19:59 Glucose (Glucose Chew Tab) 4-8 Tablets 4 Tabl... UD PRN PO 05/03/18 20:00 06/02/18 19:59 Dextrose (Dextrose 50% 50ML Syringe) 25-50ML 25ML FOR ... UD PRN IV 05/03/18 20:00 06/02/18 19:59 Glucagon (Glucagon Inj) 1 mg UD PRN SQ 05/03/18 20:00 06/02/18 19:59 Carbohydrates (Carbohydrates For Hypoglycemia) 15-30 GRAMS 15 grams if BSG 54-69... UD PRN PO 05/03/18 20:00 06/02/18 19:59
[2018-05-06] VITALS (8 sets, daily range): BP systolic 92–133; BP diastolic 60–86; PULSE 73–86; TEMP 36.6–36.8; O2SAT 93–97
[2018-05-06 05:48] LABS: HEMOGLOBIN 10.9 g/dL (12.0-16.0); MEAN CELL VOLUME 85.9 fL (80-100); MEAN CORPUSCULAR HEMOGLOBIN 27.5 pg (25-34); MEAN CORPUSCULAR HGB CONC 32.1 g/dl (32-36); MEAN PLATELET VOLUME 10.1 fL (7.4-10.4); PLATELET COUNT 190 K/uL (130-400); RED CELL DISTRIBUTION WIDTH CV 15.1 % (11.5-14.5); RED CELL DISTRIBUTION WIDTH SD 47.6 fL (36.4-46.3); WHITE BLOOD COUNT 5.52 K/uL (4.8-10.8)
[2018-05-06 06:15] LABS: INR 3.1 (0.9-1.1)
[2018-05-06 06:22] LABS: CALCIUM 7.7 mg/dl (8.5-10.1); CREATININE 0.71 mg/dl (0.60-1.20); POTASSIUM 4.1 mmol/L (3.5-5.1)
[2018-05-06] MEDS: POTASSIUM CHLORIDE 10 MEQ TABCR PO SCH ×2 (07:30→17:06)
[2018-05-06] MEDS: PANTOprazole SOD 40 MG TAB PO SCH ×2 (07:31→20:33)
[2018-05-06] MEDS: MAGNESIUM OXIDE 400 MG TAB PO SCH (07:31)
[2018-05-06] MEDS: VENLAFAXINE HCL XR 150 MG CAPXR PO SCH (07:31)
[2018-05-06] MEDS: SOTALOL HCL 80 MG TAB PO SCH ×2 (07:31→17:07)
[2018-05-06] MEDS: CHOLECALCIFEROL 1000 INTER.UNIT TAB PO SCH (07:31)
[2018-05-06] MEDS: ASPIRIN 81 MG ECTAB PO SCH (07:32)
[2018-05-06] MEDS: FLUTICASONE PROPIONATE NA SPR 16 GM BTL NAE SCH (07:32)
[2018-05-06] MEDS: MUPIROCIN 2% OINT 22 GM TUBE EXT SCH ×3 (07:32→20:32)
[2018-05-06] MEDS: GABAPENTIN 100 MG CAP PO SCH ×3 (07:32→20:35)
[2018-05-06] MEDS: INSULIN ASPART 100 UNITS/ML 3 ML PEN SC SCH ×4 (07:36→21:17)
--- NOTE | 2018-05-06 08:41 | Cardiology Follow-Up ---
Subjective Subjective Date of Service: May 06, 2018. Additional Details: The patient was admitted with atrial flutter. She was cardioverted and maintaining a sinus rhythm. She was also admitted with diastolic heart failure and massive volume overload. Charting would indicate not very much diuresis. Problem List Medical Problems: (1) Anticoagulated on Coumadin Status: Acute (2) Cirrhosis Permanent Comment: with portal hypertension, ascites Status: Chronic (3) Current use of hide shaker anticoagulation Status: Acute (4) Portal hypertension Status: Acute (5) Severe anemia Status: Acute (6) Symptomatic anemia Status: Acute (7) Upper gastrointestinal bleed Status: Acute Social History Problems: (1) GERD (gastroesophageal reflux disease) Status: Chronic (2) Mechanical heart valve present Status: Acute Review of Systems Constitutional: No fever, No chills Respiratory: + shortness of breath, + dyspnea on exertion, No see HPI, No cough , No sputum, No wheezing, No dyspnea at rest, No hemoptysis, No problem reported Cardiac: + edema, No see HPI, No chest pain, No orthopnea, No PND, No claudication, No palpitations, No problem reported Endo: + fatigue Objective Vital Signs Last Vital Signs Documentation Date Time Temp Pulse Resp B/P (MAP) Pulse Ox O2 Delivery O2 Flow Rate FiO2 05/06/18 08:00 96 Room Air 05/06/18 08:00 86 05/06/18 06:46 36.6 18 118/70 (86) 05/05/18 12:00 2.0 Physical Exam: General Appearance: WD/WN, no apparent distress, + obese Eyes: bilateral eyes normal inspection, bilateral eyes PERRL, bilateral eyes EOMI ENT: normal ENT inspection, hearing grossly normal, pharynx normal Neck: supple, no adenopathy, thyroid normal, no JVD, no carotid bruits, trachea midline Respiratory/Chest: chest non-tender, normal breath sounds, no respiratory distress, no accessory muscle use, + decreased breath sounds (bases) Cardiovascular: regular rate, rhythm, no edema, no JVD, + tachycardia, + gallop /S4 Abdomen: normal bowel sounds, non tender, soft, + distended, + pertinent finding (+fluid wave) Extremities: normal inspection, no calf tenderness, + pedal edema (trace) 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 Paroxysmal atrial flutter 2. Diastolic heart failure 3. Volume overload Recommendations: Will add Zaroxolyn to the diuretic regimen today. She still appears volume overloaded to me. Medications: Current Inpatient Medications Medications (Trade) Dose Ordered Sig/Lee [place] Route Start Time Stop Time Status Last Admin Dose Admin Ioversol (Optiray 320) 111 ml UD PRN IV 05/03/18 13:30 05/07/18 13:29 Magnesium Oxide (Mag-Ox Tab) 400 mg BID PO 05/03/18 21:00 06/02/18 20:59 05/06/18 07:31 400 MG Acetaminophen (Tylenol Tab) 650 mg Q4H PRN PO 05/03/18 15:45 06/02/18 15:44 Polyethylene (Miralax Powder Packet) 17 gm DAILY PRN PO 05/03/18 15:45 06/02/18 15:44 Sotalol HCl (Betapace Tab) 80 mg BID17 PO 05/03/18 17:00 06/02/18 16:59 05/06/18 07:31 80 MG Furosemide 40 mg/ Syringe 4 ml @ 4 mls/min TID IV 05/04/18 09:00 06/03/18 08:59 05/05/18 20:34 4 MLS/MIN Albuterol (Ventolin Hfa Inhaler) 2 puffs Q4 PRN INH 05/03/18 17:00 06/02/18 16:59 Aspirin (Ecotrin Tab) 81 mg QAM PO 05/04/18 09:00 06/03/18 08:59 05/06/18 07:32 81 MG Atorvastatin Calcium (Lipitor Tab) 80 mg HS PO 05/03/18 21:00 06/02/18 20:59 05/05/18 20:34 80 MG Buspirone HCl (Buspar Tab) 5 mg BID PO 05/03/18 21:00 06/02/18 20:59 05/06/18 07:30 5 MG Cyclobenzaprine HCl (Flexeril Tab) 5 mg TID PRN PO 05/03/18 17:00 06/02/18 16:59 Fluticasone Propionate (Flonase Nasal [place]) 2 sprays QAM BENITO 05/04/18 09:00 06/03/18 08:59 05/06/18 07:32 2 SPRAYS Folic Acid (Folvite Tab) 1 mg BID PO 05/03/18 21:00 06/02/18 20:59 05/06/18 07:32 1 MG Gabapentin (Neurontin Cap) 100 mg TID PO 05/03/18 21:00 06/02/18 20:59 05/06/18 07:32 100 MG Albuterol/ Ipratropium (Combivent Respimat Inh) 2 puffs BID PRN INH 05/03/18 17:00 06/02/18 16:59 Albuterol/ Ipratropium (Duoneb) 3 ml QID PRN INH 05/03/18 17:00 06/02/18 16:59 Nitroglycerin (Nitrostat Tab) 0.4 mg UD PRN UT 05/03/18 17:00 06/02/18 16:59 Pantoprazole Sodium (Protonix Tab) 40 mg BID PO 05/03/18 21:00 06/02/18 20:59 05/06/18 07:31 40 MG Potassium Chloride (Klor-Con M10) 20 meq QAM PO 05/04/18 09:00 06/03/18 08:59 05/06/18 07:30 20 MEQ Tramadol HCl (Ultram Tab) 50 mg Q8 PRN PO 05/03/18 17:00 06/02/18 16:59 Venlafaxine HCl (effeXOR EXTENDED REL CAP) 150 mg QAM PO 05/04/18 09:00 06/03/18 08:59 05/06/18 07:31 150 MG Warfarin Sodium (Coumadin Tab) 6 mg MoFr@1600 PO 05/05/18 16:00 06/04/18 15:59 Future Hold 05/05/18 15:04 6 MG Warfarin Sodium (Coumadin Tab) 4 mg SuTuWeThSa@1600 PO 05/04/18 16:00 06/03/18 15:59 Future Hold 05/04/18 16:39 4 MG Acetaminophen (Tylenol Tab) 500 mg HS PRN PO 05/03/18 17:00 06/02/18 16:59 7/19/18 19:37 500 MG Cholecalciferol (Vitamin D Tab) 2,000 inter.unit DAILY PO 05/04/18 09:00 06/03/18 08:59 05/06/18 07:31 2,000 INTER.UNIT Miscellaneous Information (Order Awaiting Action) 1 ea QS N/A 05/04/18 00:00 06/03/18 00:00 Mupirocin (Bactroban 2% Oint) 1 appln TID EXT 05/03/18 21:00 06/02/18 20:59 05/06/18 07:32 1 APPLN Potassium Chloride (Klor-Con M10) 10 meq QDD PO 05/03/18 18:00 06/02/18 17:59 05/05/18 17:02 10 MEQ Diphenhydramine HCl (Benadryl Cap) 25 mg HS PRN PO 05/03/18 17:45 06/02/18 17:44 05/03/18 21:19 25 MG Insulin Aspart (novoLOG ASPART) SLIDING SCALE If C... ACHS SC 05/03/18 21:00 06/02/18 20:59 05/06/18 07:36 7 UNITS Glucose (Glucose 40% Gel) 15-30 GRAMS 15 GRAMS... UD PRN PO 05/03/18 20:00 06/02/18 19:59 Glucose (Glucose Chew Tab) 4-8 Tablets 4 Tabl... UD PRN PO 05/03/18 20:00 06/02/18 19:59 Dextrose (Dextrose 50% 50ML Syringe) 25-50ML 25ML FOR ... UD PRN IV 05/03/18 20:00 06/02/18 19:59 Glucagon (Glucagon Inj) 1 mg UD PRN SQ 05/03/18 20:00 06/02/18 19:59 Carbohydrates (Carbohydrates For Hypoglycemia) 15-30 GRAMS 15 grams if BSG 54-69... UD PRN PO 05/03/18 20:00 06/02/18 19:59 Insulin Glargine (Lantus Solostar Pen) BID SC 05/06/18 09:00 06/05/18 08:59 Magnesium Chloride (Slow-Mag Tab) 64 mg BID PO 05/06/18 09:00 06/05/18 08:59 UNV Metolazone (Zaroxolyn Tab) 2.5 mg NOW ONCE PO 05/06/18 08:45 05/06/18 08:46 UNV Lab Results: Last 24 Hours Test 05/05/18 11:38 05/05/18 16:19 05/05/18 19:53 05/06/18 05:14 Bedside Glucose 184 mg/dl 291 mg/dl 250 mg/dl White Blood Count 5.52 K/uL Red Blood Count 3.96 M/uL Hemoglobin 10.9 g/dL Hematocrit 34.0 % Mean Corpuscular Volume 85.9 fL Mean Corpuscular Hemoglobin 27.5 pg Mean Corpuscular Hemoglobin Concent 32.1 g/dl RDW Standard Deviation 47.6 fL RDW Coefficient of Variation 15.1 % Platelet Count 190 K/uL Mean Platelet Volume 10.1 fL Prothrombin Time 32.1 SECONDS Prothromb Time International Ratio 3.1 Activated Partial Thromboplast Time 37.0 SECONDS Partial Thromboplastin Ratio 1.4 Sodium Level 134 mmol/L Potassium Level 4.1 mmol/L Chloride Level 102 mmol/L Carbon Dioxide Level 27 mmol/L Anion Gap 5.0 mmol/L Blood Urea Nitrogen 14 mg/dl Creatinine 0.71 mg/dl Est Creatinine Clear Calc Drug Dose 83.7 ml/min Estimated GFR () 104.3 Estimated GFR (Non- 90.0 BUN/Creatinine Ratio 20.2 Random Glucose 214 mg/dl Calcium Level 7.7 mg/dl Magnesium Level 2.1 mg/dl Test 05/06/18 07:10 Bedside Glucose 202 mg/dl
[2018-05-06] MEDS ORDERED: METOLAZONE 2.5 MG TAB PO ONE (09:00)
[2018-05-06] MEDS ORDERED: INSULIN GLARGINE SOLOSTAR 100 UNITS/ML 3 ML PEN SC SCH (09:00)
[2018-05-06] MEDS: MAGNESIUM CHLORIDE 64MG DELAYED REL TAB PO SCH ×2 (09:07→20:32)
[2018-05-06] MEDS: FUROSEMIDE INJ 40 MG in SYRINGE 0 ML IV SCH ×3 (09:07→20:36)
--- NOTE | 2018-05-06 19:52 | Progress Note ---
Medicine Progress Note Date & Time of Visit: May 06, 2018 at 11:00 . Subjective CC: Follow-up visit for atrial flutter, CHF, cirrhosis, and other problems. HPI: Successfully cardioverted yesterday. Remains in NSR. No CP. No cough; mild SOB. No nausea or vomiting. Persistent abdominal distention. No diarrhea, melena, hematochezia. No dysuria. ROS: as noted above in HPI . Objective Last 8 Hrs Date Time Temp Pulse Resp B/P (MAP) Pulse Ox O2 Delivery O2 Flow Rate FiO2 05/06/18 19:04 36.7 73 18 133/78 (96) 97 Room Air 05/06/18 14:59 36.7 81 18 123/80 (94) 97 Room Air Physical Exam: General- lying in bed, no acute distress Lungs- few basilar rales; no respiratory distress Cardiovascular- RRR; mechanical aortic valve sounds; no gallop appreciated; + JVD; 1+ pretibial edema Abdomen- distended, + bowel sounds, soft, nontender Extremities- no cyanosis; no calf tenderness Neuro- alert, oriented Skin- warm & dry . Laboratory Results: Last 24 Hours Test 05/05/18 19:53 05/06/18 05:14 05/06/18 07:10 05/06/18 11:33 Bedside Glucose 250 mg/dl 202 mg/dl 260 mg/dl White Blood Count 5.52 K/uL Red Blood Count 3.96 M/uL Hemoglobin 10.9 g/dL Hematocrit 34.0 % Mean Corpuscular Volume 85.9 fL Mean Corpuscular Hemoglobin 27.5 pg Mean Corpuscular Hemoglobin Concent 32.1 g/dl RDW Standard Deviation 47.6 fL RDW Coefficient of Variation 15.1 % Platelet Count 190 K/uL Mean Platelet Volume 10.1 fL Prothrombin Time 32.1 SECONDS Prothromb Time International Ratio 3.1 Activated Partial Thromboplast Time 37.0 SECONDS Partial Thromboplastin Ratio 1.4 Sodium Level 134 mmol/L Potassium Level 4.1 mmol/L Chloride Level 102 mmol/L Carbon Dioxide Level 27 mmol/L Anion Gap 5.0 mmol/L Blood Urea Nitrogen 14 mg/dl Creatinine 0.71 mg/dl Est Creatinine Clear Calc Drug Dose 83.7 ml/min Estimated GFR () 104.3 Estimated GFR (Non- 90.0 BUN/Creatinine Ratio 20.2 Random Glucose 214 mg/dl Calcium Level 7.7 mg/dl Magnesium Level 2.1 mg/dl Test 05/06/18 16:17 Bedside Glucose 180 mg/dl Assessment & Plan ATRIAL FLUTTER Presented with atrial flutter with 2:1 conduction. Cardiology consulted. Started on diltiazem infusion and sotalol. Persistent narrow complex tachyarrhythmia. Cardioversion successfully performed 05/05/18. Maintain anticoagulation (hold warfarin for anticoagulation; start bridge therapy with IV heparin when INR < 2.5). CORONARY ARTERY DISEASE No anginal symptoms. CHF Normal systolic function. Chronic CHF, probably due to combination of valvular heart disease, diastolic dysfunction, right-sided heart failure. Worsening ascites could be due to acute on chronic right-sided CHF. Continue diuretics. VALVULAR HEART DISEASE S/P mech AVR. Maintain anticoagulation as discussed above. CIRRHOSIS / ASCITES Worsening ascites. Uncertain whether ascites due to cirrhosis, CHF, other pathology. Diagnostic paracentesis once cardiac issues are stabilized- will need bridge anticoagulation with IV heparin. DM TYPE 2 Hypoglycemic in ED. Blood sugars subsequently elevated. FBS today = 202. Continue Lantus / NovoLog and adjust dose as necessary. ANEMIA Chronic, multifactorial. Follow H/H. VTE PROPHYLAXIS Anticoagulation as noted above. DISPOSITION Expected discharge to home. Internal Medicine follow-up with Dr. Melo. . Current Inpatient Medications: Current Inpatient Medications Medications (Trade) Dose Ordered Sig/Lee Ann Route Start Time Stop Time Status Last Admin Dose Admin Ioversol (Optiray 320) 111 ml UD PRN IV 05/03/18 13:30 05/07/18 13:29 Acetaminophen (Tylenol Tab) 650 mg Q4H PRN PO 05/03/18 15:45 06/02/18 15:44 Polyethylene (Miralax Powder Packet) 17 gm DAILY PRN PO 05/03/18 15:45 06/02/18 15:44 Sotalol HCl (Betapace Tab) 80 mg BID17 PO 05/03/18 17:00 06/02/18 16:59 05/06/18 17:07 80 MG Furosemide 40 mg/ Syringe 4 ml @ 4 mls/min TID IV 05/04/18 09:00 06/03/18 08:59 05/06/18 15:07 4 MLS/MIN Albuterol (Ventolin Hfa Inhaler) 2 puffs Q4 PRN INH 05/03/18 17:00 06/02/18 16:59 Aspirin (Ecotrin Tab) 81 mg QAM PO 05/04/18 09:00 06/03/18 08:59 05/06/18 07:32 81 MG Atorvastatin Calcium (Lipitor Tab) 80 mg HS PO 05/03/18 21:00 06/02/18 20:59 05/05/18 20:34 80 MG Buspirone HCl (Buspar Tab) 5 mg BID PO 05/03/18 21:00 06/02/18 20:59 05/06/18 07:30 5 MG Cyclobenzaprine HCl (Flexeril Tab) 5 mg TID PRN PO 05/03/18 17:00 06/02/18 16:59 Fluticasone Propionate (Flonase Nasal [place]) 2 sprays QAM BENITO 05/04/18 09:00 06/03/18 08:59 05/06/18 07:32 2 SPRAYS Folic Acid (Folvite Tab) 1 mg BID PO 05/03/18 21:00 06/02/18 20:59 05/06/18 07:32 1 MG Gabapentin (Neurontin Cap) 100 mg TID PO 05/03/18 21:00 06/02/18 20:59 05/06/18 15:07 100 MG Albuterol/ Ipratropium (Combivent Respimat Inh) 2 puffs BID PRN INH 05/03/18 17:00 06/02/18 16:59 Albuterol/ Ipratropium (Duoneb) 3 ml QID PRN INH 05/03/18 17:00 06/02/18 16:59 Nitroglycerin (Nitrostat Tab) 0.4 mg UD PRN UT 05/03/18 17:00 06/02/18 16:59 Pantoprazole Sodium (Protonix Tab) 40 mg BID PO 05/03/18 21:00 06/02/18 20:59 05/06/18 07:31 40 MG Potassium Chloride (Klor-Con M10) 20 meq QAM PO 05/04/18 09:00 06/03/18 08:59 05/06/18 07:30 20 MEQ Tramadol HCl (Ultram Tab) 50 mg Q8 PRN PO 05/03/18 17:00 06/02/18 16:59 Venlafaxine HCl (effeXOR EXTENDED REL CAP) 150 mg QAM PO 05/04/18 09:00 06/03/18 08:59 05/06/18 07:31 150 MG Warfarin Sodium (Coumadin Tab) 6 mg MoFr@1600 PO 05/05/18 16:00 06/04/18 15:59 Future Hold 05/05/18 15:04 6 MG Warfarin Sodium (Coumadin Tab) 4 mg SuTuWeThSa@1600 PO 05/04/18 16:00 06/03/18 15:59 Future Hold 05/04/18 16:39 4 MG Acetaminophen (Tylenol Tab) 500 mg HS PRN PO 05/03/18 17:00 06/02/18 16:59 05/04/18 19:37 500 MG Cholecalciferol (Vitamin D Tab) 2,000 inter.unit DAILY PO 05/04/18 09:00 06/03/18 08:59 05/06/18 07:31 2,000 INTER.UNIT Miscellaneous Information (Order Awaiting Action) 1 ea QS N/A 05/04/18 00:00 06/03/18 00:00 Mupirocin (Bactroban 2% Oint) 1 appln TID EXT 05/03/18 21:00 06/02/18 20:59 05/06/18 15:06 1 APPLN Potassium Chloride (Klor-Con M10) 10 meq QDD PO 05/03/18 18:00 06/02/18 17:59 05/06/18 17:06 10 MEQ Diphenhydramine HCl (Benadryl Cap) 25 mg HS PRN PO 05/03/18 17:45 06/02/18 17:44 05/03/18 21:19 25 MG Insulin Aspart (novoLOG ASPART) SLIDING SCALE If C... ACHS SC 05/03/18 21:00 06/02/18 20:59 05/06/18 17:10 6 UNITS Glucose (Glucose 40% Gel) 15-30 GRAMS 15 GRAMS... UD PRN PO 05/03/18 20:00 06/02/18 19:59 Glucose (Glucose Chew Tab) 4-8 Tablets 4 Tabl... UD PRN PO 05/03/18 20:00 06/02/18 19:59 Dextrose (Dextrose 50% 50ML Syringe) 25-50ML 25ML FOR ... UD PRN IV 05/03/18 20:00 06/02/18 19:59 Glucagon (Glucagon Inj) 1 mg UD PRN SQ 05/03/18 20:00 06/02/18 19:59 Carbohydrates (Carbohydrates For Hypoglycemia) 15-30 GRAMS 15 grams if BSG 54-69... UD PRN PO 05/03/18 20:00 06/02/18 19:59 Insulin Glargine (Lantus Solostar Pen) BID SC 05/06/18 09:00 06/05/18 08:59 05/06/18 09:09 14 UNITS Magnesium Chloride (Slow-Mag Tab) 64 mg BID PO 05/06/18 09:00 06/05/18 08:59 05/06/18 09:07 64 MG
[2018-05-06] MEDS: ATORVASTATIN 40 MG TAB PO SCH (20:33)
[2018-05-06] MEDS: INSULIN GLARGINE SOLOSTAR 100 UNITS/ML 3 ML PEN SC SCH (21:18)
[2018-05-07] VITALS (7 sets, daily range): BP systolic 110–132; BP diastolic 70–76; PULSE 71–78; TEMP 36.6–37; O2SAT 93–98
[2018-05-07 06:17] LABS: HEMATOCRIT 32.7 % (37-47); HEMOGLOBIN 10.6 g/dL (12.0-16.0); MEAN CELL VOLUME 84.7 fL (80-100); MEAN CORPUSCULAR HEMOGLOBIN 27.5 pg (25-34); MEAN CORPUSCULAR HGB CONC 32.4 g/dl (32-36); PLATELET COUNT 165 K/uL (130-400); RED CELL DISTRIBUTION WIDTH CV 14.9 % (11.5-14.5); RED CELL DISTRIBUTION WIDTH SD 45.6 fL (36.4-46.3); WHITE BLOOD COUNT 4.39 K/uL (4.8-10.8)
[2018-05-07 06:37] LABS: INR 3.3 (0.9-1.1); PTT PATIENT 37.4 SECONDS (21.0-31.0)
[2018-05-07 06:59] LABS: CALCIUM 7.9 mg/dl (8.5-10.1); CREATININE 0.63 mg/dl (0.60-1.20); POTASSIUM 2.8 mmol/L (3.5-5.1)
[2018-05-07] MEDS ORDERED: POTASSIUM CHLORIDE 20 MEQ TABCR PO ONE ×2 (07:30→16:00)
[2018-05-07] MEDS: GABAPENTIN 100 MG CAP PO SCH ×3 (07:39→20:28)
[2018-05-07] MEDS: POTASSIUM CHLORIDE 10 MEQ TABCR PO SCH ×3 (07:39→20:29)
[2018-05-07] MEDS: MAGNESIUM CHLORIDE 64MG DELAYED REL TAB PO SCH ×2 (07:40→20:29)
[2018-05-07] MEDS: VENLAFAXINE HCL XR 150 MG CAPXR PO SCH (07:40)
[2018-05-07] MEDS: ASPIRIN 81 MG ECTAB PO SCH (07:40)
[2018-05-07] MEDS: SOTALOL HCL 80 MG TAB PO SCH ×2 (07:41→16:44)
[2018-05-07] MEDS: PANTOprazole SOD 40 MG TAB PO SCH ×2 (07:41→20:32)
[2018-05-07] MEDS: MUPIROCIN 2% OINT 22 GM TUBE EXT SCH ×3 (07:41→20:27)
[2018-05-07] MEDS: CHOLECALCIFEROL 1000 INTER.UNIT TAB PO SCH (07:41)
[2018-05-07] MEDS: FLUTICASONE PROPIONATE NA SPR 16 GM BTL NAE SCH (07:43)
[2018-05-07] MEDS: INSULIN ASPART 100 UNITS/ML 3 ML PEN SC SCH ×4 (07:44→20:39)
[2018-05-07] MEDS: INSULIN GLARGINE SOLOSTAR 100 UNITS/ML 3 ML PEN SC SCH (07:46)
[2018-05-07] MEDS: FUROSEMIDE INJ 40 MG in SYRINGE 0 ML IV SCH ×3 (08:39→20:28)
--- NOTE | 2018-05-07 12:30 | Cardiology Follow-Up ---
Subjective Subjective Date of Service: May 07, 2018. Pt evaluation today including: conversation w/ patient, physical exam, chart review, lab review, review of studies, review of inpatient medication list Additional Details: The patient had an uneventful night. She had a large diuresis following excellent. Her potassium is being supplemented. Problem List Medical Problems: (1) Anticoagulated on Coumadin Status: Acute (2) Cirrhosis Permanent Comment: with portal hypertension, ascites Status: Chronic (3) Current use of senior care anticoagulation Status: Acute (4) Portal hypertension Status: Acute (5) Severe anemia Status: Acute (6) Symptomatic anemia Status: Acute (7) Upper gastrointestinal bleed Status: Acute Social History Problems: (1) GERD (gastroesophageal reflux disease) Status: Chronic (2) Mechanical heart valve present Status: Acute Review of Systems Constitutional: No fever, No chills Respiratory: + shortness of breath, + dyspnea on exertion, No see HPI, No cough , No sputum, No wheezing, No dyspnea at rest, No hemoptysis, No problem reported Cardiac: + edema, No see HPI, No chest pain, No orthopnea, No PND, No claudication, No palpitations, No problem reported Endo: + fatigue Objective Vital Signs Last Vital Signs Documentation Date Time Temp Pulse Resp B/P (MAP) Pulse Ox O2 Delivery O2 Flow Rate FiO2 05/07/18 11:28 36.7 72 20 121/70 (87) 94 Room Air 05/05/18 12:00 2.0 Physical Exam: General Appearance: WD/WN, no apparent distress, + obese Eyes: bilateral eyes normal inspection, bilateral eyes PERRL, bilateral eyes EOMI ENT: normal ENT inspection, hearing grossly normal, pharynx normal Neck: supple, no adenopathy, thyroid normal, no JVD, no carotid bruits, trachea midline Respiratory/Chest: chest non-tender, normal breath sounds, no respiratory distress, no accessory muscle use, + decreased breath sounds (bases) Cardiovascular: regular rate, rhythm, no edema, no JVD, + gallop/S4 Abdomen: normal bowel sounds, non tender, soft, + distended, + pertinent finding (+fluid wave) Extremities: normal inspection, no calf tenderness, + pedal edema (trace) 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 Paroxysmal atrial flutter 2. Diastolic heart failure 3. AVR 4. Cirrhosis 5. Volume overload and ascites which is multifactorial Recommendations: The patient received Zaroxolyn yesterday and had a large diuresis. Not unexpected, the patient has low potassium which is being supplemented. Still volume overloaded. Medications: Current Inpatient Medications Medications (Trade) Dose Ordered Sig/[place] Route Start Time Stop Time Status Last Admin Dose Admin Ioversol (Optiray 320) 111 ml UD PRN IV 05/03/18 13:30 05/07/18 13:29 Acetaminophen (Tylenol Tab) 650 mg Q4H PRN PO 05/03/18 15:45 06/02/18 15:44 Polyethylene (Miralax Powder Packet) 17 gm DAILY PRN PO 05/03/18 15:45 06/02/18 15:44 Sotalol HCl (Betapace Tab) 80 mg BID17 PO 05/03/18 17:00 06/02/18 16:59 05/07/18 07:41 80 MG Furosemide 40 mg/ Syringe 4 ml @ 4 mls/min TID IV 05/04/18 09:00 06/03/18 08:59 05/07/18 08:39 4 MLS/MIN Albuterol (Ventolin Hfa Inhaler) 2 puffs Q4 PRN INH 05/03/18 17:00 06/02/18 16:59 Aspirin (Ecotrin Tab) 81 mg QAM PO 05/04/18 09:00 06/03/18 08:59 05/07/18 07:40 81 MG Atorvastatin Calcium (Lipitor Tab) 80 mg HS PO 05/03/18 21:00 06/02/18 20:59 05/06/18 20:33 80 MG Buspirone HCl (Buspar Tab) 5 mg BID PO 05/03/18 21:00 06/02/18 20:59 05/07/18 07:40 5 MG Cyclobenzaprine HCl (Flexeril Tab) 5 mg TID PRN PO 05/03/18 17:00 06/02/18 16:59 Fluticasone Propionate (Flonase Nasal [place]) 2 sprays QAM BENITO 05/04/18 09:00 06/03/18 08:59 05/07/18 07:43 2 SPRAYS Folic Acid (Folvite Tab) 1 mg BID PO 05/03/18 21:00 06/02/18 20:59 05/07/18 07:40 1 MG Gabapentin (Neurontin Cap) 100 mg TID PO 05/03/18 21:00 06/02/18 20:59 05/07/18 07:39 100 MG Albuterol/ Ipratropium (Combivent Respimat Inh) 2 puffs BID PRN INH 05/03/18 17:00 06/02/18 16:59 Albuterol/ Ipratropium (Duoneb) 3 ml QID PRN INH 05/03/18 17:00 06/02/18 16:59 Nitroglycerin (Nitrostat Tab) 0.4 mg UD PRN UT 05/03/18 17:00 06/02/18 16:59 Pantoprazole Sodium (Protonix Tab) 40 mg BID PO 05/03/18 21:00 06/02/18 20:59 05/07/18 07:41 40 MG Tramadol HCl (Ultram Tab) 50 mg Q8 PRN PO 05/03/18 17:00 06/02/18 16:59 Venlafaxine HCl (effeXOR EXTENDED REL CAP) 150 mg QAM PO 05/04/18 09:00 06/03/18 08:59 05/07/18 07:40 150 MG Warfarin Sodium (Coumadin Tab) 6 mg MoFr@1600 PO 05/05/18 16:00 06/04/18 15:59 Future Hold 05/05/18 15:04 6 MG Warfarin Sodium (Coumadin Tab) 4 mg SuTuWeThSa@1600 PO 05/04/18 16:00 06/03/18 15:59 Future Hold 05/04/18 16:39 4 MG Acetaminophen (Tylenol Tab) 500 mg HS PRN PO 05/03/18 17:00 06/02/18 16:59 05/04/18 19:37 500 MG Cholecalciferol (Vitamin D Tab) 2,000 inter.unit DAILY PO 05/04/18 09:00 06/03/18 08:59 05/07/18 07:41 2,000 INTER.UNIT Miscellaneous Information (Order Awaiting Action) 1 ea QS N/A 05/04/18 00:00 06/03/18 00:00 Mupirocin (Bactroban 2% Oint) 1 appln TID EXT 05/03/18 21:00 06/02/18 20:59 05/07/18 07:41 1 APPLN Potassium Chloride (Klor-Con M10) 10 meq QDD PO 05/03/18 18:00 06/02/18 17:59 05/06/18 17:06 10 MEQ Diphenhydramine HCl (Benadryl Cap) 25 mg HS PRN PO 05/03/18 17:45 06/02/18 17:44 05/03/18 21:19 25 MG Insulin Aspart (novoLOG ASPART) SLIDING SCALE If C... ACHS SC 05/03/18 21:00 06/02/18 20:59 05/07/18 11:59 12 UNITS Glucose (Glucose 40% Gel) 15-30 GRAMS 15 GRAMS... UD PRN PO 05/03/18 20:00 06/02/18 19:59 Glucose (Glucose Chew Tab) 4-8 Tablets 4 Tabl... UD PRN PO 05/03/18 20:00 06/02/18 19:59 Dextrose (Dextrose 50% 50ML Syringe) 25-50ML 25ML FOR ... UD PRN IV 05/03/18 20:00 06/02/18 19:59 Glucagon (Glucagon Inj) 1 mg UD PRN SQ 05/03/18 20:00 06/02/18 19:59 Carbohydrates (Carbohydrates For Hypoglycemia) 15-30 GRAMS 15 grams if BSG 54-69... UD PRN PO 05/03/18 20:00 06/02/18 19:59 Magnesium Chloride (Slow-Mag Tab) 64 mg BID PO 05/06/18 09:00 06/05/18 08:59 05/07/18 07:40 64 MG Insulin Glargine (Lantus Solostar Pen) BID SC 05/06/18 21:00 06/05/18 08:59 05/07/18 07:46 16 UNITS Potassium Chloride (Klor-Con M10) 20 meq TID PO 05/07/18 09:00 06/03/18 08:59 05/07/18 07:39 20 MEQ Lab Results: Last 24 Hours Test 05/06/18 16:17 05/06/18 20:56 05/07/18 05:25 05/07/18 07:13 Bedside Glucose 180 mg/dl 164 mg/dl 246 mg/dl White Blood Count 4.39 K/uL Red Blood Count 3.86 M/uL Hemoglobin 10.6 g/dL Hematocrit 32.7 % Mean Corpuscular Volume 84.7 fL Mean Corpuscular Hemoglobin 27.5 pg Mean Corpuscular Hemoglobin Concent 32.4 g/dl RDW Standard Deviation 45.6 fL RDW Coefficient of Variation 14.9 % Platelet Count 165 K/uL Mean Platelet Volume 10.0 fL Prothrombin Time 34.2 SECONDS Prothromb Time International Ratio 3.3 Activated Partial Thromboplast Time 37.4 SECONDS Partial Thromboplastin Ratio 1.4 Sodium Level 135 mmol/L Potassium Level 2.8 mmol/L Chloride Level 97 mmol/L Carbon Dioxide Level 31 mmol/L Anion Gap 7.0 mmol/L Blood Urea Nitrogen 11 mg/dl Creatinine 0.63 mg/dl Est Creatinine Clear Calc Drug Dose 93.9 ml/min Estimated GFR () 109.9 Estimated GFR (Non- 94.8 BUN/Creatinine Ratio 17.8 Random Glucose 174 mg/dl Calcium Level 7.9 mg/dl Magnesium Level 1.8 mg/dl Test 05/07/18 11:28 Bedside Glucose 256 mg/dl
--- NOTE | 2018-05-07 13:12 | Progress Note ---
Medicine Progress Note Date & Time of Visit: May 07, 2018 at 09:50 . Subjective CC: Follow-up visit for atrial flutter, CHF, cirrhosis, and other problems. HPI: Cardioverted 05/05; remains in NSR. No CP. No cough; mild SOB. No nausea or vomiting. Persistent abdominal distention. No diarrhea, melena, hematochezia. Increased urine output. No dysuria. ROS: as noted above in HPI . Objective Last 8 Hrs Date Time Temp Pulse Resp B/P (MAP) Pulse Ox O2 Delivery O2 Flow Rate FiO2 05/07/18 11:28 36.7 72 20 121/70 (87) 94 Room Air 05/07/18 08:00 96 Room Air 05/07/18 07:02 36.6 78 18 116/72 (87) 94 Room Air Physical Exam: General- lying in bed, no acute distress Lungs- few basilar rales; no respiratory distress Cardiovascular- RRR; mechanical aortic valve sounds; no gallop appreciated; + JVD; 1+ pretibial edema Abdomen- distended, + bowel sounds, soft, nontender Extremities- no cyanosis; no calf tenderness Neuro- alert, oriented Skin- warm & dry . Laboratory Results: Last 24 Hours Test 05/06/18 16:17 05/06/18 20:56 05/07/18 05:25 05/07/18 07:13 Bedside Glucose 180 mg/dl 164 mg/dl 246 mg/dl White Blood Count 4.39 K/uL Red Blood Count 3.86 M/uL Hemoglobin 10.6 g/dL Hematocrit 32.7 % Mean Corpuscular Volume 84.7 fL Mean Corpuscular Hemoglobin 27.5 pg Mean Corpuscular Hemoglobin Concent 32.4 g/dl RDW Standard Deviation 45.6 fL RDW Coefficient of Variation 14.9 % Platelet Count 165 K/uL Mean Platelet Volume 10.0 fL Prothrombin Time 34.2 SECONDS Prothromb Time International Ratio 3.3 Activated Partial Thromboplast Time 37.4 SECONDS Partial Thromboplastin Ratio 1.4 Sodium Level 135 mmol/L Potassium Level 2.8 mmol/L Chloride Level 97 mmol/L Carbon Dioxide Level 31 mmol/L Anion Gap 7.0 mmol/L Blood Urea Nitrogen 11 mg/dl Creatinine 0.63 mg/dl Est Creatinine Clear Calc Drug Dose 93.9 ml/min Estimated GFR () 109.9 Estimated GFR (Non- 94.8 BUN/Creatinine Ratio 17.8 Random Glucose 174 mg/dl Calcium Level 7.9 mg/dl Magnesium Level 1.8 mg/dl Test 05/07/18 11:28 Bedside Glucose 256 mg/dl Assessment & Plan ATRIAL FLUTTER Presented with atrial flutter with 2:1 conduction. Cardiology consulted. Started on diltiazem infusion and sotalol. Persistent narrow complex tachyarrhythmia. Cardioversion successfully performed 05/05/18. Maintain anticoagulation (hold warfarin for anticoagulation; start bridge therapy with IV heparin when INR < 2.5). CORONARY ARTERY DISEASE No anginal symptoms. CHF Normal systolic function. Chronic CHF, probably due to combination of valvular heart disease, diastolic dysfunction, right-sided heart failure. Worsening ascites could be due to acute on chronic right-sided CHF. Continue diuretics- furosemide and metolazone. VALVULAR HEART DISEASE S/P mech AVR. Severe mitral annular calcification without significant MR or MS. Maintain anticoagulation as discussed above. CIRRHOSIS / ASCITES Worsening ascites. Uncertain whether ascites due to cirrhosis, CHF, other pathology. Diagnostic paracentesis once cardiac issues are stabilized and INR < 1.5- will need bridge anticoagulation with IV heparin. HYPOKALEMIA K today = 2.8. Hypokalemia probably secondary to diuretic therapy. Replace, follow. ? consider adding spironolactone. DM TYPE 2 Hypoglycemic in ED. Blood sugars subsequently elevated. FBS today = 246. Continue Lantus / NovoLog and adjust dose as necessary. ANEMIA Chronic, multifactorial. Follow H/H. VTE PROPHYLAXIS Anticoagulation as noted above. DISPOSITION Expected discharge to home. Internal Medicine follow-up with Dr. Melo. . Current Inpatient Medications: Current Inpatient Medications Medications (Trade) Dose Ordered Sig/[place] Route Start Time Stop Time Status Last Admin Dose Admin Ioversol (Optiray 320) 111 ml UD PRN IV 05/03/18 13:30 05/07/18 13:29 Acetaminophen (Tylenol Tab) 650 mg Q4H PRN PO 05/03/18 15:45 06/02/18 15:44 Polyethylene (Miralax Powder Packet) 17 gm DAILY PRN PO 05/03/18 15:45 06/02/18 15:44 Sotalol HCl (Betapace Tab) 80 mg BID17 PO 05/03/18 17:00 06/02/18 16:59 05/07/18 07:41 80 MG Furosemide 40 mg/ Syringe 4 ml @ 4 mls/min TID IV 05/04/18 09:00 06/03/18 08:59 05/07/18 08:39 4 MLS/MIN Albuterol (Ventolin Hfa Inhaler) 2 puffs Q4 PRN INH 05/03/18 17:00 06/02/18 16:59 Aspirin (Ecotrin Tab) 81 mg QAM PO 05/04/18 09:00 06/03/18 08:59 05/07/18 07:40 81 MG Atorvastatin Calcium (Lipitor Tab) 80 mg HS PO 05/03/18 21:00 06/02/18 20:59 05/06/18 20:33 80 MG Buspirone HCl (Buspar Tab) 5 mg BID PO 05/03/18 21:00 06/02/18 20:59 05/07/18 07:40 5 MG Cyclobenzaprine HCl (Flexeril Tab) 5 mg TID PRN PO 05/03/18 17:00 06/02/18 16:59 Fluticasone Propionate (Flonase Nasal [place]) 2 sprays QAM BENITO 05/04/18 09:00 06/03/18 08:59 05/07/18 07:43 2 SPRAYS Folic Acid (Folvite Tab) 1 mg BID PO 05/03/18 21:00 06/02/18 20:59 05/07/18 07:40 1 MG Gabapentin (Neurontin Cap) 100 mg TID PO 05/03/18 21:00 06/02/18 20:59 05/07/18 07:39 100 MG Albuterol/ Ipratropium (Combivent Respimat Inh) 2 puffs BID PRN INH 05/03/18 17:00 06/02/18 16:59 Albuterol/ Ipratropium (Duoneb) 3 ml QID PRN INH 05/03/18 17:00 06/02/18 16:59 Nitroglycerin (Nitrostat Tab) 0.4 mg UD PRN UT 05/03/18 17:00 06/02/18 16:59 Pantoprazole Sodium (Protonix Tab) 40 mg BID PO 05/03/18 21:00 06/02/18 20:59 05/07/18 07:41 40 MG Tramadol HCl (Ultram Tab) 50 mg Q8 PRN PO 05/03/18 17:00 06/02/18 16:59 Venlafaxine HCl (effeXOR EXTENDED REL CAP) 150 mg QAM PO 05/04/18 09:00 06/03/18 08:59 05/07/18 07:40 150 MG Warfarin Sodium (Coumadin Tab) 6 mg MoFr@1600 PO 05/05/18 16:00 06/04/18 15:59 Future Hold 05/05/18 15:04 6 MG Warfarin Sodium (Coumadin Tab) 4 mg SuTuWeThSa@1600 PO 05/04/18 16:00 06/03/18 15:59 Future Hold 05/04/18 16:39 4 MG Acetaminophen (Tylenol Tab) 500 mg HS PRN PO 05/03/18 17:00 06/02/18 16:59 05/04/18 19:37 500 MG Cholecalciferol (Vitamin D Tab) 2,000 inter.unit DAILY PO 05/04/18 09:00 06/03/18 08:59 05/07/18 07:41 2,000 INTER.UNIT Miscellaneous Information (Order Awaiting Action) 1 ea QS N/A 05/04/18 00:00 06/03/18 00:00 Mupirocin (Bactroban 2% Oint) 1 appln TID EXT 05/03/18 21:00 06/02/18 20:59 05/07/18 07:41 1 APPLN Potassium Chloride (Klor-Con M10) 10 meq QDD PO 05/03/18 18:00 06/02/18 17:59 05/06/18 17:06 10 MEQ Diphenhydramine HCl (Benadryl Cap) 25 mg HS PRN PO 05/03/18 17:45 06/02/18 17:44 05/03/18 21:19 25 MG Insulin Aspart (novoLOG ASPART) SLIDING SCALE If C... ACHS SC 05/03/18 21:00 06/02/18 20:59 05/07/18 11:59 12 UNITS Glucose (Glucose 40% Gel) 15-30 GRAMS 15 GRAMS... UD PRN PO 7/18/18 20:00 06/02/18 19:59 Glucose (Glucose Chew Tab) 4-8 Tablets 4 Tabl... UD PRN PO 05/03/18 20:00 06/02/18 19:59 Dextrose (Dextrose 50% 50ML Syringe) 25-50ML 25ML FOR ... UD PRN IV 05/03/18 20:00 06/02/18 19:59 Glucagon (Glucagon Inj) 1 mg UD PRN SQ 05/03/18 20:00 06/02/18 19:59 Carbohydrates (Carbohydrates For Hypoglycemia) 15-30 GRAMS 15 grams if BSG 54-69... UD PRN PO 05/03/18 20:00 06/02/18 19:59 Magnesium Chloride (Slow-Mag Tab) 64 mg BID PO 05/06/18 09:00 06/05/18 08:59 05/07/18 07:40 64 MG Insulin Glargine (Lantus Solostar Pen) BID SC 05/06/18 21:00 06/05/18 08:59 05/07/18 07:46 16 UNITS Potassium Chloride (Klor-Con M10) 20 meq TID PO 05/07/18 09:00 06/03/18 08:59 05/07/18 07:39 20 MEQ
[2018-05-07] MEDS: ATORVASTATIN 40 MG TAB PO SCH (20:28)
[2018-05-07] MEDS ORDERED: INSULIN GLARGINE SOLOSTAR 100 UNITS/ML 3 ML PEN SC SCH (21:00)
[2018-05-08 04:20] VITALS: BP 132/73; PULSE 74; TEMP 36.9; O2SAT 94
[2018-05-08 06:09] LABS: HEMATOCRIT 33.8 % (37-47); HEMOGLOBIN 10.6 g/dL (12.0-16.0); MEAN CELL VOLUME 85.1 fL (80-100); MEAN CORPUSCULAR HEMOGLOBIN 26.7 pg (25-34); MEAN CORPUSCULAR HGB CONC 31.4 g/dl (32-36); MEAN PLATELET VOLUME 9.8 fL (7.4-10.4); PLATELET COUNT 168 K/uL (130-400); RED CELL DISTRIBUTION WIDTH CV 14.7 % (11.5-14.5); RED CELL DISTRIBUTION WIDTH SD 45.9 fL (36.4-46.3); WHITE BLOOD COUNT 3.77 K/uL (4.8-10.8)
[2018-05-08 06:17] LABS: INR 2.6 (0.9-1.1); PTT PATIENT 35.5 SECONDS (21.0-31.0)
[2018-05-08 06:34] LABS: CALCIUM 8.3 mg/dl (8.5-10.1); CREATININE 0.63 mg/dl (0.60-1.20)
[2018-05-08] MEDS ORDERED: POTASSIUM CHLORIDE 20 MEQ TABCR PO ONE (06:45)
[2018-05-08 06:57] VITALS: BP 123/72; PULSE 73; TEMP 36.9; O2SAT 95
[2018-05-08] MEDS: VENLAFAXINE HCL XR 150 MG CAPXR PO SCH (07:46)
[2018-05-08] MEDS: PANTOprazole SOD 40 MG TAB PO SCH ×2 (07:46→21:01)
[2018-05-08] MEDS: MAGNESIUM CHLORIDE 64MG DELAYED REL TAB PO SCH ×2 (07:47→21:00)
[2018-05-08] MEDS: CHOLECALCIFEROL 1000 INTER.UNIT TAB PO SCH (07:47)
[2018-05-08] MEDS: GABAPENTIN 100 MG CAP PO SCH (07:48)
[2018-05-08] MEDS: POTASSIUM CHLORIDE 10 MEQ TABCR PO SCH ×3 (07:48→21:00)
[2018-05-08] MEDS: ASPIRIN 81 MG ECTAB PO SCH (07:49)
[2018-05-08] MEDS: SOTALOL HCL 80 MG TAB PO SCH ×2 (07:49→17:32)
[2018-05-08] MEDS: FUROSEMIDE INJ 40 MG in SYRINGE 0 ML IV SCH ×3 (07:50→20:59)
[2018-05-08] MEDS: FLUTICASONE PROPIONATE NA SPR 16 GM BTL NAE SCH (07:51)
[2018-05-08] MEDS: INSULIN ASPART 100 UNITS/ML 3 ML PEN SC SCH ×4 (07:54→21:08)
[2018-05-08] MEDS: INSULIN GLARGINE SOLOSTAR 100 UNITS/ML 3 ML PEN SC SCH (07:55)
[2018-05-08] MEDS: MUPIROCIN 2% OINT 22 GM TUBE EXT SCH ×3 (08:01→20:59)
--- NOTE | 2018-05-08 09:09 | Cardiology Follow-Up ---
Subjective Subjective Date of Service: May 08, 2018. Pt evaluation today including: conversation w/ patient, physical exam, chart review, lab review, review of studies, review of inpatient medication list Additional Details: The patient continues to diuresis. Her potassium is being supplemented orally. She has no new cardiac complaints today. Her INR is 2.5 and I believe her abdominal tap will be on hold. Problem List Medical Problems: (1) Anticoagulated on Coumadin Status: Acute (2) Cirrhosis Permanent Comment: with portal hypertension, ascites Status: Chronic (3) Current use of intermediate anticoagulation Status: Acute (4) Portal hypertension Status: Acute (5) Severe anemia Status: Acute (6) Symptomatic anemia Status: Acute (7) Upper gastrointestinal bleed Status: Acute Social History Problems: (1) GERD (gastroesophageal reflux disease) Status: Chronic (2) Mechanical heart valve present Status: Acute Review of Systems Constitutional: No fever, No chills Respiratory: + shortness of breath, + dyspnea on exertion, No see HPI, No cough , No sputum, No wheezing, No dyspnea at rest, No hemoptysis, No problem reported Cardiac: + edema, No see HPI, No chest pain, No orthopnea, No PND, No claudication, No palpitations, No problem reported Endo: + fatigue Objective Vital Signs Last Vital Signs Documentation Date Time Temp Pulse Resp B/P (MAP) Pulse Ox O2 Delivery O2 Flow Rate FiO2 05/08/18 08:00 Room Air 05/08/18 06:57 36.9 73 18 123/72 (89) 95 05/05/18 12:00 2.0 Physical Exam: General Appearance: WD/WN, no apparent distress, + obese Eyes: bilateral eyes normal inspection, bilateral eyes PERRL, bilateral eyes EOMI ENT: normal ENT inspection, hearing grossly normal, pharynx normal Neck: supple, no adenopathy, thyroid normal, no JVD, no carotid bruits, trachea midline Respiratory/Chest: chest non-tender, normal breath sounds, no respiratory distress, no accessory muscle use, + decreased breath sounds (bases) Cardiovascular: regular rate, rhythm, no edema, no JVD, + gallop/S4 Abdomen: normal bowel sounds, non tender, soft, + distended, + pertinent finding (+fluid wave) Extremities: normal inspection, no calf tenderness, + pedal edema (trace) Neurologic/Psychiatric: architecture intern II-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 Paroxysmal atrial flutter 2. Diastolic heart failure 3. AVR 4. Cirrhosis 5. Volume overload and ascites which is multifactorial Recommendations: As outlined above the patient continues to diurese and her weight is decreasing. She has been on gabapentin for about 6 months. She seems to correlate her fluid retention with the start of this medication. I stopped it today. Her potassium is 3.0 and she received additional potassium this morning. I would continue with cautious diuretic. If her potassium remains low or decreases further than she should receive parental.
[2018-05-08 11:28] VITALS: BP 122/72; PULSE 68; TEMP 36.7; O2SAT 94
[2018-05-08 15:07] VITALS: BP 122/71; PULSE 74; TEMP 36.7; O2SAT 94
[2018-05-08] MEDS ORDERED: HEPARIN IV BOLUS 4,000 UNIT in SYRINGE 0 ML IV ONE (16:45)
[2018-05-08] MEDS: HEPARIN 25,000 UNIT/500ML D5W 500 ML IV SCH (17:32)
[2018-05-08 18:45] VITALS: BP 122/71; PULSE 71; TEMP 36.7; O2SAT 93
--- NOTE | 2018-05-08 20:52 | Progress Note ---
Medicine Progress Note Date & Time of Visit: May 08, 2018 at 15:40 . Subjective CC: Follow-up visit for atrial flutter, CHF, cirrhosis, and other problems. HPI: Remains in NSR. No CP. No cough. Less SOB. No nausea or vomiting. Persistent abdominal distention. No diarrhea, melena, hematochezia. No dysuria. Ambulating in hallway. ROS: as noted above in HPI . Objective Last 8 Hrs Date Time Temp Pulse Resp B/P (MAP) Pulse Ox O2 Delivery O2 Flow Rate FiO2 05/08/18 18:45 36.7 71 16 122/71 (88) 93 Room Air 05/08/18 15:07 36.7 74 20 122/71 (88) 94 Room Air Physical Exam: General- lying in bed, no acute distress Lungs- few basilar rales; no respiratory distress Cardiovascular- RRR; mechanical aortic valve sounds; no gallop appreciated; + JVD; 1+ pretibial edema Abdomen- distended, + bowel sounds, soft, nontender Extremities- no cyanosis; no calf tenderness Neuro- alert, oriented Skin- warm & dry . Laboratory Results: Last 24 Hours Test 05/08/18 05:34 05/08/18 07:16 05/08/18 11:27 05/08/18 16:21 White Blood Count 3.77 K/uL Red Blood Count 3.97 M/uL Hemoglobin 10.6 g/dL Hematocrit 33.8 % Mean Corpuscular Volume 85.1 fL Mean Corpuscular Hemoglobin 26.7 pg Mean Corpuscular Hemoglobin Concent 31.4 g/dl RDW Standard Deviation 45.9 fL RDW Coefficient of Variation 14.7 % Platelet Count 168 K/uL Mean Platelet Volume 9.8 fL Prothrombin Time 26.9 SECONDS Prothromb Time International Ratio 2.6 Activated Partial Thromboplast Time 35.5 SECONDS Partial Thromboplastin Ratio 1.4 Sodium Level 138 mmol/L Potassium Level 3.0 mmol/L Chloride Level 101 mmol/L Carbon Dioxide Level 31 mmol/L Anion Gap 6.0 mmol/L Blood Urea Nitrogen 10 mg/dl Creatinine 0.63 mg/dl Est Creatinine Clear Calc Drug Dose 92.8 ml/min Estimated GFR () 109.9 Estimated GFR (Non- 94.8 BUN/Creatinine Ratio 16.0 Random Glucose 102 mg/dl Calcium Level 8.3 mg/dl Magnesium Level 1.9 mg/dl Bedside Glucose 106 mg/dl 167 mg/dl 183 mg/dl Assessment & Plan ATRIAL FLUTTER Presented with atrial flutter with 2:1 conduction. Cardiology consulted. Started on diltiazem infusion and sotalol. Persistent narrow complex tachyarrhythmia. Cardioversion successfully performed 05/05/18. Maintain anticoagulation (hold warfarin for anticoagulation; start bridge therapy with IV heparin when INR < 2.5). CORONARY ARTERY DISEASE No anginal symptoms. CHF Normal systolic function. Chronic CHF, probably due to combination of valvular heart disease, diastolic dysfunction, right-sided heart failure. Worsening ascites could be due to acute on chronic right-sided CHF. Continue diuretics- furosemide and metolazone. VALVULAR HEART DISEASE S/P mech AVR. Severe mitral annular calcification without significant MR or MS. Maintain anticoagulation as discussed above. CIRRHOSIS / ASCITES Worsening ascites. Uncertain whether ascites due to cirrhosis, CHF, other pathology. Diagnostic paracentesis once cardiac issues are stabilized and INR < 1.5- will need bridge anticoagulation with IV heparin. HYPOKALEMIA K as low as 2.8. Hypokalemia probably secondary to diuretic therapy. K today = 3.0. Replace, follow. ? consider adding spironolactone. DM TYPE 2 Not well-controlled. Hgb A1C in clinic was 9.6 on 03/28/18. Hypoglycemic in ED. Blood sugars subsequently elevated. FBS today = 106. Continue Lantus / NovoLog and adjust dose as necessary. ANEMIA Chronic, multifactorial. Follow H/H. VTE PROPHYLAXIS Anticoagulation as noted above. DISPOSITION Expected discharge to home. Internal Medicine follow-up with Dr. Melo. . Current Inpatient Medications: Current Inpatient Medications Medications (Trade) Dose Ordered Sig/[place] Route Start Time Stop Time Status Last Admin Dose Admin Acetaminophen (Tylenol Tab) 650 mg Q4H PRN PO 05/03/18 15:45 06/02/18 15:44 Polyethylene (Miralax Powder Packet) 17 gm DAILY PRN PO 05/03/18 15:45 06/02/18 15:44 Sotalol HCl (Betapace Tab) 80 mg BID17 PO 05/03/18 17:00 06/02/18 16:59 05/08/18 17:32 80 MG Furosemide 40 mg/ Syringe 4 ml @ 4 mls/min TID IV 05/04/18 09:00 06/03/18 08:59 05/08/18 13:55 4 MLS/MIN Albuterol (Ventolin Hfa Inhaler) 2 puffs Q4 PRN INH 05/03/18 17:00 06/02/18 16:59 Aspirin (Ecotrin Tab) 81 mg QAM PO 05/04/18 09:00 06/03/18 08:59 05/08/18 07:49 81 MG Atorvastatin Calcium (Lipitor Tab) 80 mg HS PO 05/03/18 21:00 06/02/18 20:59 05/07/18 20:28 80 MG Buspirone HCl (Buspar Tab) 5 mg BID PO 05/03/18 21:00 06/02/18 20:59 05/08/18 07:46 5 MG Cyclobenzaprine HCl (Flexeril Tab) 5 mg TID PRN PO 05/03/18 17:00 06/02/18 16:59 Fluticasone Propionate (Flonase Nasal [place]) 2 sprays QAM BENITO 05/04/18 09:00 06/03/18 08:59 05/07/18 07:43 2 SPRAYS Folic Acid (Folvite Tab) 1 mg BID PO 05/03/18 21:00 06/02/18 20:59 05/08/18 07:47 1 MG Albuterol/ Ipratropium (Combivent Respimat Inh) 2 puffs BID PRN INH 05/03/18 17:00 06/02/18 16:59 Albuterol/ Ipratropium (Duoneb) 3 ml QID PRN INH 05/03/18 17:00 06/02/18 16:59 Nitroglycerin (Nitrostat Tab) 0.4 mg UD PRN UT 05/03/18 17:00 06/02/18 16:59 Pantoprazole Sodium (Protonix Tab) 40 mg BID PO 05/03/18 21:00 06/02/18 20:59 05/08/18 07:46 40 MG Tramadol HCl (Ultram Tab) 50 mg Q8 PRN PO 05/03/18 17:00 06/02/18 16:59 Venlafaxine HCl (effeXOR EXTENDED REL CAP) 150 mg QAM PO 7/19/18 09:00 06/03/18 08:59 05/08/18 07:46 150 MG Warfarin Sodium (Coumadin Tab) 6 mg MoFr@1600 PO 05/05/18 16:00 06/04/18 15:59 Future Hold 05/05/18 15:04 6 MG Warfarin Sodium (Coumadin Tab) 4 mg SuTuWeThSa@1600 PO 05/04/18 16:00 06/03/18 15:59 Future Hold 05/04/18 16:39 4 MG Acetaminophen (Tylenol Tab) 500 mg HS PRN PO 05/03/18 17:00 06/02/18 16:59 05/04/18 19:37 500 MG Cholecalciferol (Vitamin D Tab) 2,000 inter.unit DAILY PO 05/04/18 09:00 06/03/18 08:59 05/08/18 07:47 2,000 INTER.UNIT Miscellaneous Information (Order Awaiting Action) 1 ea QS N/A 05/04/18 00:00 06/03/18 00:00 Mupirocin (Bactroban 2% Oint) 1 appln TID EXT 05/03/18 21:00 06/02/18 20:59 05/08/18 13:55 1 APPLN Diphenhydramine HCl (Benadryl Cap) 25 mg HS PRN PO 05/03/18 17:45 06/02/18 17:44 05/03/18 21:19 25 MG Insulin Aspart (novoLOG ASPART) SLIDING SCALE If C... ACHS SC 05/03/18 21:00 06/02/18 20:59 05/08/18 17:35 10 UNITS Glucose (Glucose 40% Gel) 15-30 GRAMS 15 GRAMS... UD PRN PO 05/03/18 20:00 06/02/18 19:59 Glucose (Glucose Chew Tab) 4-8 Tablets 4 Tabl... UD PRN PO 05/03/18 20:00 06/02/18 19:59 Dextrose (Dextrose 50% 50ML Syringe) 25-50ML 25ML FOR ... UD PRN IV 05/03/18 20:00 06/02/18 19:59 Glucagon (Glucagon Inj) 1 mg UD PRN SQ 05/03/18 20:00 06/02/18 19:59 Carbohydrates (Carbohydrates For Hypoglycemia) 15-30 GRAMS 15 grams if BSG 54-69... UD PRN PO 05/03/18 20:00 06/02/18 19:59 Magnesium Chloride (Slow-Mag Tab) 64 mg BID PO 05/06/18 09:00 06/05/18 08:59 05/08/18 07:47 64 MG Potassium Chloride (Klor-Con M10) 20 meq TID PO 05/07/18 09:00 06/03/18 08:59 05/08/18 13:57 20 MEQ Insulin Glargine (Lantus Solostar Pen) DAILY SC 05/08/18 09:00 06/07/18 08:59 05/08/18 07:55 50 UNITS Heparin Sodium/ Dextrose 500 ml @ 16 mls/hr Q24H IV 05/08/18 16:45 06/07/18 16:44 05/08/18 17:32 16 MLS/HR
[2018-05-08] MEDS: ATORVASTATIN 40 MG TAB PO SCH (21:00)
[2018-05-09] VITALS (7 sets, daily range): BP systolic 109–141; BP diastolic 69–85; PULSE 69–75; TEMP 36.5–36.8; O2SAT 93–96; BMI 40.6
[2018-05-09 00:16] LABS: PTT PATIENT 44.8 SECONDS (21.0-31.0)
[2018-05-09] MEDS ORDERED: HEPARIN IV BOLUS 3,000 UNIT in SYRINGE 0 ML IV ONE (01:15)
[2018-05-09 06:59] LABS: HEMATOCRIT 32.2 % (37-47); HEMOGLOBIN 10.3 g/dL (12.0-16.0); MEAN CELL VOLUME 85.9 fL (80-100); MEAN CORPUSCULAR HEMOGLOBIN 27.5 pg (25-34); MEAN PLATELET VOLUME 9.6 fL (7.4-10.4); PLATELET COUNT 153 K/uL (130-400); RED CELL DISTRIBUTION WIDTH CV 14.9 % (11.5-14.5); RED CELL DISTRIBUTION WIDTH SD 46.5 fL (36.4-46.3); WHITE BLOOD COUNT 3.07 K/uL (4.8-10.8)
[2018-05-09 07:21] LABS: INR 1.9 (0.9-1.1)
[2018-05-09 07:23] LABS: PTT PATIENT 60.7 SECONDS (21.0-31.0)
[2018-05-09 07:34] LABS: CREATININE 0.66 mg/dl (0.60-1.20); POTASSIUM 2.8 mmol/L (3.5-5.1)
[2018-05-09] MEDS: VENLAFAXINE HCL XR 150 MG CAPXR PO SCH (07:57)
[2018-05-09] MEDS: MAGNESIUM CHLORIDE 64MG DELAYED REL TAB PO SCH ×2 (07:57→21:11)
[2018-05-09] MEDS: CHOLECALCIFEROL 1000 INTER.UNIT TAB PO SCH (07:57)
[2018-05-09] MEDS: ASPIRIN 81 MG ECTAB PO SCH (07:57)
[2018-05-09] MEDS: PANTOprazole SOD 40 MG TAB PO SCH ×2 (07:57→21:09)
[2018-05-09] MEDS: POTASSIUM CHLORIDE 10 MEQ TABCR PO SCH ×4 (07:58→17:24)
[2018-05-09] MEDS: FLUTICASONE PROPIONATE NA SPR 16 GM BTL NAE SCH (07:58)
[2018-05-09] MEDS: SOTALOL HCL 80 MG TAB PO SCH ×2 (07:58→17:24)
[2018-05-09] MEDS: FUROSEMIDE INJ 40 MG in SYRINGE 0 ML IV SCH ×3 (07:58→21:07)
[2018-05-09] MEDS: MUPIROCIN 2% OINT 22 GM TUBE EXT SCH ×3 (08:04→21:06)
[2018-05-09] MEDS: INSULIN ASPART 100 UNITS/ML 3 ML PEN SC SCH ×4 (08:09→21:24)
[2018-05-09] MEDS: INSULIN GLARGINE SOLOSTAR 100 UNITS/ML 3 ML PEN SC SCH (08:09)
[2018-05-09] MEDS ORDERED: POTASSIUM CHLORIDE 10 MEQ TABCR PO STA (08:11)
--- NOTE | 2018-05-09 08:49 | Progress Note ---
Internal Med Progress Note Date of Service: May 09, 2018. Provider Documentation: SUBJECTIVE: Feels fine, Improvement of abdominal swelling/ascites, minimum bilateral lower extremity edema No complaint of shortness of breath, dyspnea on exertion, palpitation or dizzy spell, no chest heaviness Remains in normal sinus rhythm No fever or chills No abdominal pain, no nausea OBJECTIVE: Vital Signs-as noted below Exam: General-very pleasant, no apparent distress Eyes- sclera nonicteric, pupils bilateral equal reactive to light, extraocular muscles intact ENT-moist oral mucosa Neck- supple, no jugular venous distention, no carotid bruit, no thyromegaly, trachea midline Lungs-clear to auscultate, no wheeze or rales Heart-regular S1-S2 Abdomen-soft, positive distention with mild ascites, abdomen is nontender, bowel sounds active Extremities-trace bilateral lower extremity edema Neuro-no focal neurological deficit Psych-alert awake oriented 3, normal mood and affect Lymph nodes-no lymphadenopathy Lab data as noted below. ASSESSMENT & PLAN: A FLUTTER Presented with atrial flutter with 2: 1 conduction Cardioverted on 05/05/18 Remains in sinus with rate controlled On sotalol 80 mg twice daily Appreciate input from cardiology On IV heparin weight-based protocol, Coumadin on hold for possible diagnostic paracentesis for ascites HYPOKALEMIA Potassium 2.8 today Possible secondary to aggressive diuretic therapy: On Lasix 40 mg IV 3 times daily Needs adequate correction ; given prolonged QTC in EKG/presentation with cardiac arrhythmia/A flutter Patient is ordered 40 meq of oral potassium (scheduled to have additional 20 meq ) . p.o. this a.m.= total 60 meq k 20 meq IV 1 now Replace magnesium with IV x1 gram Repeat PRP at 1400 Increase scheduled dose of oral potassium 30 meq X 3 times daily= total 90 meq K /daily On Slow-Mg supplement Follow PRP daily and replace electrolytes as indicated PROLONGED QTC QTC 497 today No arrhythmia correct electrolytes as outlined above Daily application infrastructure engineer in telemetry VALVULAR HEART DISEASE STATUS POST MECHANICAL AVR -Status post AVR-more than 20 years back ECHO shows: There is a mechanical aortic valve.Doppler evidence of regurgitation is probably normal for this prosthetic aortic valve. The gradient is normal for this prosthetic aortic valve. On Coumadin anticoagulation, goal INR 2.5-3.5 Coumadin on hold, with IV heparin bridge-for possible paracentesis Echo shows: Severe mitral calcification, without significant MR or MS [place] CIRRHOSIS/ASCITES History of any NASLD cirrhosis-follows with [facility] GI Dr. Muñoz Recent EGD Presents with worsening of ascites-possible secondary to right heart failure/ valvular heart disease No evidence of liver compromise appreciate input from GI Will need diagnostic paracentesis to assess SAAG to determine pathophysiology of ascites Ascites /abdominal girth markedly improved with IV Diuresis Coumadin on hold On IV heparin INR 1.9 today Ordered for abdominal ultrasound to assess acetic fluid Will schedule for diagnostic paracentesis possible tomorrow if INR is equal to 1.5 ACUTE ON CHRONIC CHF WITH DIASTOLIC DYSFUNCTION/RIGHT HEART FAILURE/VALVULAR HEART DISEASE: Presented with volume overload-increased abdominal girth/ascites lower extremity edema/increased wt gain of 40 lb in 2 weeks was on Lasix 80 mg daily ( recently increased by PCP ) ECHO: Normal LV chamber size with moderate concentric LVH. Normal LV systolic function, EF 55-60%. Abnormal septal wall motion abnormality consistent with post-operative state, otherwise, no segmental left ventricular wall motion abnormalities are noted. Grade I diastolic dysfunction. There is a mechanical aortic valve. Doppler evidence of regurgitation is probably normal for this prosthetic aortic valve. The gradient is normal for this prosthetic aortic valve. There is severe mitral annular calcification. Calcified mitral apparatus. Significant mitral regurgitation is absent. There is no mitral valve stenosis. Severe tricuspid regurgitation. Severe left atrial enlargement. Symptom improved with aggressive diuresis based weight loss from 98.3 kg-94.3 today Patient is on IV Lasix 40 mg X 3 times daily Cardiology following Neurontin D/osmany by cardiology ( associated with lower ext edema ) TYPE 2 DIABETES Poorly controlled Recent hemoglobin A1c on 03/28/15 was 9.6 On basal Lantus/NovoLog sliding scale coding educator consulted ANEMIA OF CHRONIC DISEASE H&H stable No evidence of bleeding CODE STATUS: Full code DVT PROPHYLAXIS IV heparin weight-based protocol DISPOSITION Patient is independent in her ADLs Lives at home with her Has good family support Expected to be discharged home when medically stable Cardiology follow-up with Wing Reynolds PA-C Gastroenterology follow-up with Dr. Muñoz Medicine follow-up with Dr. Luis Melo Vital Signs: Date Time Temp Pulse Resp B/P (MAP) Pulse Ox O2 Delivery O2 Flow Rate FiO2 05/09/18 07:06 36.5 69 18 113/69 (84) 95 Room Air 05/09/18 04:00 36.6 70 16 112/70 (84) 95 Room Air 05/09/18 00:01 36.8 71 18 127/77 (94) 93 Room Air 05/08/18 20:00 Room Air 05/08/18 18:45 36.7 71 16 122/71 (88) 93 Room Air 05/08/18 15:07 36.7 74 20 122/71 (88) 94 Room Air 05/08/18 11:28 36.7 68 20 122/72 (89) 94 Room Air Lab Results: Results Past 24 Hours Test 05/08/18 11:27 05/08/18 16:21 05/08/18 20:32 05/08/18 23:36 Range/Units Bedside Glucose 167 183 281 70-90 mg/dl Activated Partial Thromboplast Time 44.8 21.0-31.0 SECONDS Partial Thromboplastin Ratio 1.7 Test 05/09/18 06:45 05/09/18 06:48 05/09/18 07:11 Range/Units Magnesium Level 1.9 1.8-2.4 mg/dl White Blood Count 3.07 4.8-10.8 K/uL Red Blood Count 3.75 4.2-5.4 M/uL Hemoglobin 10.3 12.0-16.0 g/dL Hematocrit 32.2 37-47 % Mean Corpuscular Volume 85.9 80-100 fL Mean Corpuscular Hemoglobin 27.5 25-34 pg Mean Corpuscular Hemoglobin Concent 32.0 32-36 g/dl RDW Standard Deviation 46.5 36.4-46.3 fL RDW Coefficient of Variation 14.9 11.5-14.5 % Platelet Count 153 130-400 K/uL Mean Platelet Volume 9.6 7.4-10.4 fL Prothrombin Time 19.5 9.0-12.0 SECONDS Prothromb Time International Ratio 1.9 0.9-1.1 Activated Partial Thromboplast Time 60.7 21.0-31.0 SECONDS Partial Thromboplastin Ratio 2.3 Sodium Level 139 136-145 mmol/L Potassium Level 2.8 3.5-5.1 mmol/L Chloride Level 101 98-107 mmol/L Carbon Dioxide Level 31 21-32 mmol/L Anion Gap 7.0 3-11 mmol/L Blood Urea Nitrogen 12 7-18 mg/dl Creatinine 0.66 0.60-1.20 mg/dl Est Creatinine Clear Calc Drug Dose 88.4 ml/min Estimated GFR () 108.2 Estimated GFR (Non- 93.4 BUN/Creatinine Ratio 17.7 10-20 Random Glucose 146 70-99 mg/dl Calcium Level 8.0 8.5-10.1 mg/dl Bedside Glucose 157 70-90 mg/dl
[2018-05-09] MEDS: POTASSIUM CHLR 10 MEQ / WTR 100 ML IV SCH ×2 (09:17→10:58)
[2018-05-09] MEDS ORDERED: MAGNESIUM SULFATE 1GM / D5W 100 ML IV ONE (09:30)
--- NOTE | 2018-05-09 12:28 | Cardiology Follow-Up ---
Subjective Subjective Date of Service: May 09, 2018. Pt evaluation today including: conversation w/ patient, conversation w/ family , physical exam, chart review, lab review, review of studies, review of inpatient medication list Additional Details: Patient has no new complaints today. Problem List Medical Problems: (1) Anticoagulated on Coumadin Status: Acute (2) Cirrhosis Permanent Comment: with portal hypertension, ascites Status: Chronic (3) Current use of rn long term care anticoagulation Status: Acute (4) Portal hypertension Status: Acute (5) Severe anemia Status: Acute (6) Symptomatic anemia Status: Acute (7) Upper gastrointestinal bleed Status: Acute Social History Problems: (1) GERD (gastroesophageal reflux disease) Status: Chronic (2) Mechanical heart valve present Status: Acute Review of Systems Constitutional: No fever, No chills Respiratory: + shortness of breath, + dyspnea on exertion, No see HPI, No cough , No sputum, No wheezing, No dyspnea at rest, No hemoptysis, No problem reported Cardiac: + edema, No see HPI, No chest pain, No orthopnea, No PND, No claudication, No palpitations, No problem reported Endo: + fatigue Objective Vital Signs Last Vital Signs Documentation Date Time Temp Pulse Resp B/P (MAP) Pulse Ox O2 Delivery O2 Flow Rate FiO2 05/09/18 12:18 36.6 71 18 127/76 (93) 96 Room Air 05/05/18 12:00 2.0 Physical Exam: General Appearance: WD/WN, no apparent distress, + obese Eyes: bilateral eyes normal inspection, bilateral eyes PERRL, bilateral eyes EOMI ENT: normal ENT inspection, hearing grossly normal, pharynx normal Neck: supple, no adenopathy, thyroid normal, no JVD, no carotid bruits, trachea midline Respiratory/Chest: chest non-tender, normal breath sounds, no respiratory distress, no accessory muscle use, + decreased breath sounds (bases) Cardiovascular: regular rate, rhythm, no edema, no JVD, + gallop/S4 Abdomen: normal bowel sounds, non tender, soft, + distended, + pertinent finding (+fluid wave) Extremities: normal inspection, no calf tenderness, + pedal edema (trace) 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 Paroxysmal atrial flutter 2. Diastolic heart failure 3. Mechanical AVR 4. Cirrhosis 5. Volume overload and ascites which is multifactorial Recommendations: The patient's potassium remains low and has not recovered. She will receive an additional to oral potassium both parental potassium and magnesium. It is important that we keep her potassium levels in a normal range to prevent cardiac arrhythmias especially since she is on sotalol. The plan is for the patient to have her ascites tapped tomorrow. She does have a mechanical aortic valve and should be bridged with heparin before and after the procedure. Over the past 48 hours she has had a good diuresis with fluid weight loss. Medications: Current Inpatient Medications Medications (Trade) Dose Ordered Sig/[place] Route Start Time Stop Time Status Last Admin Dose Admin Acetaminophen (Tylenol Tab) 650 mg Q4H PRN PO 05/03/18 15:45 06/02/18 15:44 Polyethylene (Miralax Powder Packet) 17 gm DAILY PRN PO 05/03/18 15:45 06/02/18 15:44 Sotalol HCl (Betapace Tab) 80 mg BID17 PO 05/03/18 17:00 06/02/18 16:59 05/09/18 07:58 80 MG Furosemide 40 mg/ Syringe 4 ml @ 4 mls/min TID IV 05/04/18 09:00 06/03/18 08:59 05/09/18 07:58 4 MLS/MIN Albuterol (Ventolin Hfa Inhaler) 2 puffs Q4 PRN INH 05/03/18 17:00 06/02/18 16:59 Aspirin (Ecotrin Tab) 81 mg QAM PO 05/04/18 09:00 06/03/18 08:59 05/09/18 07:57 81 MG Atorvastatin Calcium (Lipitor Tab) 80 mg HS PO 05/03/18 21:00 06/02/18 20:59 05/08/18 21:00 80 MG Buspirone HCl (Buspar Tab) 5 mg BID PO 05/03/18 21:00 06/02/18 20:59 05/09/18 07:58 5 MG Cyclobenzaprine HCl (Flexeril Tab) 5 mg TID PRN PO 05/03/18 17:00 06/02/18 16:59 Fluticasone Propionate (Flonase Nasal [place]) 2 sprays QAM BENITO 05/04/18 09:00 06/03/18 08:59 05/09/18 07:58 2 SPRAYS Folic Acid (Folvite Tab) 1 mg BID PO 05/03/18 21:00 06/02/18 20:59 05/09/18 07:58 1 MG Albuterol/ Ipratropium (Combivent Respimat Inh) 2 puffs BID PRN INH 05/03/18 17:00 06/02/18 16:59 Albuterol/ Ipratropium (Duoneb) 3 ml QID PRN INH 05/03/18 17:00 06/02/18 16:59 Nitroglycerin (Nitrostat Tab) 0.4 mg UD PRN [place] 05/03/18 17:00 06/02/18 16:59 Pantoprazole Sodium (Protonix Tab) 40 mg BID PO 05/03/18 21:00 06/02/18 20:59 05/09/18 07:57 40 MG Tramadol HCl (Ultram Tab) 50 mg Q8 PRN PO 05/03/18 17:00 06/02/18 16:59 Venlafaxine HCl (effeXOR EXTENDED REL CAP) 150 mg QAM PO 05/04/18 09:00 06/03/18 08:59 05/09/18 07:57 150 MG Warfarin Sodium (Coumadin Tab) 6 mg MoFr@1600 PO 05/05/18 16:00 06/04/18 15:59 Future Hold 05/05/18 15:04 6 MG Warfarin Sodium (Coumadin Tab) 4 mg SuTuWeThSa@1600 PO 05/04/18 16:00 06/03/18 15:59 Future Hold 05/04/18 16:39 4 MG Acetaminophen (Tylenol Tab) 500 mg HS PRN PO 05/03/18 17:00 06/02/18 16:59 05/04/18 19:37 500 MG Cholecalciferol (Vitamin D Tab) 2,000 inter.unit DAILY PO 05/04/18 09:00 06/03/18 08:59 05/09/18 07:57 2,000 INTER.UNIT Miscellaneous Information (Order Awaiting Action) 1 ea QS N/A 05/04/18 00:00 06/03/18 00:00 Mupirocin (Bactroban 2% Oint) 1 appln TID EXT 05/03/18 21:00 06/02/18 20:59 05/09/18 08:04 1 APPLN Diphenhydramine HCl (Benadryl Cap) 25 mg HS PRN PO 05/03/18 17:45 06/02/18 17:44 05/03/18 21:19 25 MG Insulin Aspart (novoLOG ASPART) SLIDING SCALE If C... ACHS SC 05/03/18 21:00 06/02/18 20:59 05/09/18 12:20 5 UNITS Glucose (Glucose 40% Gel) 15-30 GRAMS 15 GRAMS... UD PRN PO 05/03/18 20:00 06/02/18 19:59 Glucose (Glucose Chew Tab) 4-8 Tablets 4 Tabl... UD PRN PO 05/03/18 20:00 06/02/18 19:59 Dextrose (Dextrose 50% 50ML Syringe) 25-50ML 25ML FOR ... UD PRN IV 05/03/18 20:00 06/02/18 19:59 Glucagon (Glucagon Inj) 1 mg UD PRN SQ 05/03/18 20:00 06/02/18 19:59 Carbohydrates (Carbohydrates For Hypoglycemia) 15-30 GRAMS 15 grams if BSG 54-69... UD PRN PO 05/03/18 20:00 06/02/18 19:59 Magnesium Chloride (Slow-Mag Tab) 64 mg BID PO 05/06/18 09:00 06/05/18 08:59 05/09/18 07:57 64 MG Insulin Glargine (Lantus Solostar Pen) DAILY SC 05/08/18 09:00 06/07/18 08:59 05/09/18 08:09 60 UNITS Heparin Sodium/ Dextrose 500 ml @ 17 mls/hr Q24H IV 05/08/18 16:45 06/07/18 16:44 05/08/18 17:32 16 MLS/HR Potassium Chloride (Klor-Con M10) 30 meq TIDM PO 05/09/18 09:30 06/08/18 09:29 05/09/18 11:01 30 MEQ Lab Results: Last 24 Hours Test 05/08/18 16:21 05/08/18 20:32 05/08/18 23:36 05/09/18 06:45 Bedside Glucose 183 mg/dl 281 mg/dl Activated Partial Thromboplast Time 44.8 SECONDS Partial Thromboplastin Ratio 1.7 Magnesium Level 1.9 mg/dl Test 05/09/18 06:48 05/09/18 07:11 White Blood Count 3.07 K/uL Red Blood Count 3.75 M/uL Hemoglobin 10.3 g/dL Hematocrit 32.2 % Mean Corpuscular Volume 85.9 fL Mean Corpuscular Hemoglobin 27.5 pg Mean Corpuscular Hemoglobin Concent 32.0 g/dl RDW Standard Deviation 46.5 fL RDW Coefficient of Variation 14.9 % Platelet Count 153 K/uL Mean Platelet Volume 9.6 fL Prothrombin Time 19.5 SECONDS Prothromb Time International Ratio 1.9 Activated Partial Thromboplast Time 60.7 SECONDS Partial Thromboplastin Ratio 2.3 Sodium Level 139 mmol/L Potassium Level 2.8 mmol/L Chloride Level 101 mmol/L Carbon Dioxide Level 31 mmol/L Anion Gap 7.0 mmol/L Blood Urea Nitrogen 12 mg/dl Creatinine 0.66 mg/dl Est Creatinine Clear Calc Drug Dose 88.4 ml/min Estimated GFR () 108.2 Estimated GFR (Non- 93.4 BUN/Creatinine Ratio 17.7 Random Glucose 146 mg/dl Calcium Level 8.0 mg/dl Bedside Glucose 157 mg/dl
[2018-05-09] MEDS ORDERED: TRAM-10 PO (12:38)
--- NOTE | 2018-05-09 13:01 | DIAGNOSTIC IMAGING REPORT ---
ASCITES-ABDOMEN LIMITED CLINICAL HISTORY: Ascites. Evaluate for amount and possible paracentesis tomorrow. COMPARISON STUDY: CT of the abdomen and pelvis May 03, 2018. TECHNIQUE: Sonography of the abdomen and pelvis was performed to assess for ascites. FINDINGS: Minimal right upper quadrant ascites was noted. Otherwise, no pockets of fluid were noted. IMPRESSION: Minimal right upper quadrant ascites. Electronically signed by: Minor Hinson M.D. 05/09/2018 1:00 PM Dictated Date/Time: 05/09/2018 12:57 PM
[2018-05-09] MEDS: HEPARIN 25,000 UNIT/500ML D5W 500 ML IV SCH (19:05)
[2018-05-09 19:15] LABS: POTASSIUM 4.1 mmol/L (3.5-5.1)
[2018-05-09] MEDS: ATORVASTATIN 40 MG TAB PO SCH (21:09)
[2018-05-09] MEDS: ACETAMINOPHEN 325 MG TAB PO PRN (21:19)
[2018-05-10] VITALS (7 sets, daily range): BP systolic 101–131; BP diastolic 51–82; PULSE 61–77; TEMP 36.4–36.7; O2SAT 92–97
[2018-05-10 06:06] LABS: INR 1.5 (0.9-1.1)
[2018-05-10 06:19] LABS: CALCIUM 8.2 mg/dl (8.5-10.1); CREATININE 0.57 mg/dl (0.60-1.20); POTASSIUM 3.7 mmol/L (3.5-5.1)
[2018-05-10 06:42] LABS: PTT PATIENT 40.6 SECONDS (21.0-31.0)
[2018-05-10] MEDS ORDERED: HEPARIN IV BOLUS 4,500 UNIT in SYRINGE 0 ML IV ONE (07:00)
[2018-05-10] MEDS: INSULIN ASPART 100 UNITS/ML 3 ML PEN SC SCH ×4 (07:55→21:13)
[2018-05-10] MEDS: FUROSEMIDE INJ 40 MG in SYRINGE 0 ML IV SCH ×3 (07:56→21:06)
[2018-05-10] MEDS: INSULIN GLARGINE SOLOSTAR 100 UNITS/ML 3 ML PEN SC SCH (07:56)
[2018-05-10] MEDS: FLUTICASONE PROPIONATE NA SPR 16 GM BTL NAE SCH (07:56)
[2018-05-10] MEDS: MAGNESIUM CHLORIDE 64MG DELAYED REL TAB PO SCH ×2 (07:57→21:08)
[2018-05-10] MEDS: SOTALOL HCL 80 MG TAB PO SCH ×2 (07:57→16:36)
[2018-05-10] MEDS: ASPIRIN 81 MG ECTAB PO SCH (07:57)
[2018-05-10] MEDS: VENLAFAXINE HCL XR 150 MG CAPXR PO SCH (07:58)
[2018-05-10] MEDS: PANTOprazole SOD 40 MG TAB PO SCH ×2 (07:58→21:07)
[2018-05-10] MEDS: MUPIROCIN 2% OINT 22 GM TUBE EXT SCH ×3 (07:58→21:15)
[2018-05-10] MEDS: CHOLECALCIFEROL 1000 INTER.UNIT TAB PO SCH (07:58)
[2018-05-10] MEDS: POTASSIUM CHLORIDE 10 MEQ TABCR PO SCH ×3 (07:58→16:36)
--- NOTE | 2018-05-10 11:47 | DIAGNOSTIC IMAGING REPORT ---
LIMITED ULTRASOUND FOR ASCITES EVALUATION CLINICAL HISTORY: Ascites. COMPARISON STUDY: 05/09/2018 FINDINGS: A four-quadrant survey ultrasound was performed. There is trace 4 quadrant ascites. Ascitic volume is insufficient for paracentesis. IMPRESSION: Trace 4 quadrant ascites. Electronically signed by: Tomasz Malcolm M.D. 05/10/2018 11:46 AM Dictated Date/Time: 05/10/2018 11:44 AM
--- NOTE | 2018-05-10 11:51 | Progress Note ---
Progress Note Date of Service May 10, 2018. Progress Note GI short note: Pt's chart reviewed - she had repeat u/s for ascites check today and there was very minimal amt of ascites fluid and the amount is insufficient for even diagnostic paracentesis.
[2018-05-10 13:23] LABS: PTT PATIENT 71.7 SECONDS (21.0-31.0)
--- NOTE | 2018-05-10 15:05 | Progress Note ---
Internal Med Progress Note Date of Service: May 10, 2018. Provider Documentation: SUBJECTIVE: Denies of any shortness of breath, no dyspnea on exertion or orthopnea Lower extremity swelling has markedly improved No fever or chills Unable to have paracentesis done today as there was not enough fluid pockets to do diagnostic tap Coumadin resumed Patient will need IV heparin bridge until INR is 2.5, due to prosthetic AVR OBJECTIVE: Vital Signs-as noted below Exam: General-very pleasant, no apparent distress Eyes- sclera nonicteric, pupils bilateral equal reactive to light, extraocular muscles intact ENT-moist oral mucosa Neck- supple, no jugular venous distention, no carotid bruit, no thyromegaly, trachea midline Lungs-clear to auscultate, no wheeze or rales Heart-regular S1-S2 Abdomen-soft, positive distention with mild ascites, abdomen is nontender, bowel sounds active Extremities-trace bilateral lower extremity edema Neuro-no focal neurological deficit Psych-alert awake oriented 3, normal mood and affect Lymph nodes-no lymphadenopathy Lab data as noted below. ASSESSMENT & PLAN: A FLUTTER Presented with atrial flutter with 2: 1 conduction successful Cardioversion on 05/05/18 Remains in sinus with rate controlled On sotalol 80 mg twice daily Appreciate input from cardiology On IV heparin weight-based protocol, Coumadin resumed today HYPOKALEMIA Corrected potassium 3.7/magnesium 2.1 Possible secondary to aggressive diuretic therapy: given prolonged QTC in EKG/presentation with cardiac arrhythmia/A flutter- potassium needs to be> 4/magnesium~2 added 20 M EQ p.o. 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 The gradient is normal for this prosthetic aortic valve. Severe mitral calcification, without significant MR or MS On Coumadin anticoagulation, goal INR 2.5-3.5 Coumadin resumed, with IV heparin bridge-until INR 2.5 [place] CIRRHOSIS/ASCITES History of any NAFLD cirrhosis-follows with [facility] GI Dr. Muñoz Had recent EGD Presents with worsening of ascites-possible secondary to right heart failure/ valvular heart disease appreciate input from GI Ascites has significantly improved after aggressive diuresis Ultrasound of abdomen shows minimum ascitic fluid, unable to perform diagnostic paracentesis Coumadin resumed Continue diuresis as outlined by cardiology ACUTE ON CHRONIC CHF WITH DIASTOLIC DYSFUNCTION/RIGHT HEART FAILURE/VALVULAR HEART DISEASE: Presented with volume overload-increased abdominal girth/ascites lower extremity edema/increased wt gain of 40 lb in 2 weeks was on Lasix 80 mg daily ( recently increased by PCP ) ECHO: Normal LV chamber size with moderate concentric LVH. Normal LV systolic function, EF 55-60%. Abnormal septal wall motion abnormality consistent with post-operative state, otherwise, no segmental left ventricular wall motion abnormalities are noted. Grade I diastolic dysfunction. There is a mechanical aortic valve. Doppler evidence of regurgitation is probably normal for this prosthetic aortic valve. The gradient is normal for this prosthetic aortic valve. There is severe mitral annular calcification. Calcified mitral apparatus. Significant mitral regurgitation is absent. There is no mitral valve stenosis. Severe tricuspid regurgitation. Severe left atrial enlargement. Symptom improved with aggressive diuresis based weight loss from 98.3 kg-94.3 Patient is on IV Lasix 40 mg X 3 times daily Cardiology following Neurontin D/osmany by cardiology ( associated with lower ext edema ) TYPE 2 DIABETES Poorly controlled Recent hemoglobin A1c on 03/28/15 was 9.6 On basal Lantus/NovoLog sliding scale specialty molder consulted ANEMIA OF CHRONIC DISEASE H&H stable No evidence of bleeding CODE STATUS: Full code DVT PROPHYLAXIS IV heparin weight-based protocol/Coumadin DISPOSITION Patient is independent in her ADLs Lives at home with her Has good family support Expected to be discharged home when medically stable Cardiology follow-up with Wing Reynolds PA-C Gastroenterology follow-up with Dr. Muñoz Medicine follow-up with Dr. Luis Melo Vital Signs: Date Time Temp Pulse Resp B/P (MAP) Pulse Ox O2 Delivery O2 Flow Rate FiO2 05/11/18 06:49 36.3 76 22 122/65 (84) 97 Room Air 05/11/18 03:32 36.4 70 20 107/72 (84) Room Air 96.0 05/10/18 23:20 36.6 70 22 120/77 (91) 96 Room Air 05/10/18 20:00 95 Room Air 05/10/18 19:10 36.7 67 17 101/51 (68) 96 Room Air 05/10/18 15:10 36.4 77 18 131/82 (98) 97 Room Air 05/10/18 11:52 36.6 75 16 129/77 (94) 96 Room Air 05/10/18 08:00 Room Air Lab Results: Results Past 24 Hours Test 05/10/18 11:39 05/10/18 12:49 05/10/18 16:20 05/10/18 20:04 Range/Units Bedside Glucose 209 237 70-90 mg/dl Activated Partial Thromboplast Time 71.7 46.5 21.0-31.0 SECONDS Partial Thromboplastin Ratio 2.8 1.8 Test 05/10/18 20:44 05/11/18 03:50 Range/Units Bedside Glucose 190 70-90 mg/dl Prothrombin Time 14.1 9.0-12.0 SECONDS Prothromb Time International Ratio 1.4 0.9-1.1 Activated Partial Thromboplast Time 59.0 21.0-31.0 SECONDS Partial Thromboplastin Ratio 2.3 Sodium Level 140 136-145 mmol/L Potassium Level 3.7 3.5-5.1 mmol/L Chloride Level 108 98-107 mmol/L Carbon Dioxide Level 27 21-32 mmol/L Anion Gap 5.0 3-11 mmol/L Blood Urea Nitrogen 12 7-18 mg/dl Creatinine 0.65 0.60-1.20 mg/dl Est Creatinine Clear Calc Drug Dose 90.1 ml/min Estimated GFR () 108.7 Estimated GFR (Non- 93.8 BUN/Creatinine Ratio 19.0 10-20 Random Glucose 165 70-99 mg/dl Calcium Level 7.9 8.5-10.1 mg/dl Magnesium Level 2.1 1.8-2.4 mg/dl
--- NOTE | 2018-05-10 15:31 | Cardiology Follow-Up ---
Subjective Subjective Date of Service: May 10, 2018. Pt evaluation today including: conversation w/ patient, physical exam, chart review, lab review, review of studies, conversation w/ retail sales consultant, review of inpatient medication list Additional Details: The patient is sitting comfortably in a chair. She has no new complaints today. GI note would indicate no tap of the ascites. Problem List Medical Problems: (1) Anticoagulated on Coumadin Status: Acute (2) Cirrhosis Permanent Comment: with portal hypertension, ascites Status: Chronic (3) Current use of halfway anticoagulation Status: Acute (4) Portal hypertension Status: Acute (5) Severe anemia Status: Acute (6) Symptomatic anemia Status: Acute (7) Upper gastrointestinal bleed Status: Acute Social History Problems: (1) GERD (gastroesophageal reflux disease) Status: Chronic (2) Mechanical heart valve present Status: Acute Review of Systems Constitutional: No fever, No chills Respiratory: + shortness of breath, + dyspnea on exertion, No see HPI, No cough , No sputum, No wheezing, No dyspnea at rest, No hemoptysis, No problem reported Cardiac: + edema, No see HPI, No chest pain, No orthopnea, No PND, No claudication, No palpitations, No problem reported Endo: + fatigue Objective Vital Signs Last Vital Signs Documentation Date Time Temp Pulse Resp B/P (MAP) Pulse Ox O2 Delivery O2 Flow Rate FiO2 05/10/18 15:10 36.4 77 18 131/82 (98) 97 Room Air 05/05/18 12:00 2.0 Physical Exam: General Appearance: WD/WN, no apparent distress, + obese Eyes: bilateral eyes normal inspection, bilateral eyes PERRL, bilateral eyes EOMI ENT: normal ENT inspection, hearing grossly normal, pharynx normal Neck: supple, no adenopathy, thyroid normal, no JVD, no carotid bruits, trachea midline Respiratory/Chest: chest non-tender, normal breath sounds, no respiratory distress, no accessory muscle use, + decreased breath sounds (bases) Cardiovascular: regular rate, rhythm, no edema, no JVD, + gallop/S4 Abdomen: normal bowel sounds, non tender, soft, + distended, + pertinent finding (+fluid wave) Extremities: normal inspection, no calf tenderness, + pedal edema (Edema has improved) 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 Paroxysmal atrial flutter 2. Diastolic heart failure 3. Mechanical AVR 4. Cirrhosis 5. Volume overload and ascites which is multifactorial Recommendations: The patient is getting close to dry weight. GI intends not to do a tap of her ascites and at some point she will need to be started back on oral anticoagulation. I would continue her current Lasix dose through today and reassess tomorrow. We may be able to switch her to oral diuretics were decreased the Lasix dose IV tomorrow. Medications: Current Inpatient Medications Medications (Trade) Dose Ordered Sig/[place] Route Start Time Stop Time Status Last Admin Dose Admin Acetaminophen (Tylenol Tab) 650 mg Q4H PRN PO 05/03/18 15:45 06/02/18 15:44 05/09/18 21:19 650 MG Polyethylene (Miralax Powder Packet) 17 gm DAILY PRN PO 05/03/18 15:45 06/02/18 15:44 Sotalol HCl (Betapace Tab) 80 mg BID17 PO 05/03/18 17:00 06/02/18 16:59 05/10/18 07:57 80 MG Furosemide 40 mg/ Syringe 4 ml @ 4 mls/min TID IV 05/04/18 09:00 06/03/18 08:59 05/10/18 14:09 4 MLS/MIN Albuterol (Ventolin Hfa Inhaler) 2 puffs Q4 PRN INH 05/03/18 17:00 06/02/18 16:59 Aspirin (Ecotrin Tab) 81 mg QAM PO 05/04/18 09:00 06/03/18 08:59 05/10/18 07:57 81 MG Atorvastatin Calcium (Lipitor Tab) 80 mg HS PO 05/03/18 21:00 06/02/18 20:59 05/09/18 21:09 80 MG Buspirone HCl (Buspar Tab) 5 mg BID PO 05/03/18 21:00 06/02/18 20:59 05/10/18 07:57 5 MG Cyclobenzaprine HCl (Flexeril Tab) 5 mg TID PRN PO 05/03/18 17:00 06/02/18 16:59 Fluticasone Propionate (Flonase Nasal [place]) 2 sprays QAM BENITO 05/04/18 09:00 06/03/18 08:59 05/09/18 07:58 2 SPRAYS Folic Acid (Folvite Tab) 1 mg BID PO 05/03/18 21:00 06/02/18 20:59 05/10/18 07:57 1 MG Albuterol/ Ipratropium (Combivent Respimat Inh) 2 puffs BID PRN INH 05/03/18 17:00 06/02/18 16:59 Albuterol/ Ipratropium (Duoneb) 3 ml QID PRN INH 05/03/18 17:00 06/02/18 16:59 Nitroglycerin (Nitrostat Tab) 0.4 mg UD PRN [place] 05/03/18 17:00 06/02/18 16:59 Pantoprazole Sodium (Protonix Tab) 40 mg BID PO 05/03/18 21:00 06/02/18 20:59 05/10/18 07:58 40 MG Tramadol HCl (Ultram Tab) 50 mg Q8 PRN PO 05/03/18 17:00 06/02/18 16:59 Venlafaxine HCl (effeXOR EXTENDED REL CAP) 150 mg QAM PO 05/04/18 09:00 06/03/18 08:59 05/10/18 07:58 150 MG Acetaminophen (Tylenol Tab) 500 mg HS PRN PO 05/03/18 17:00 06/02/18 16:59 05/04/18 19:37 500 MG Cholecalciferol (Vitamin D Tab) 2,000 inter.unit DAILY PO 05/04/18 09:00 06/03/18 08:59 05/10/18 07:58 2,000 INTER.UNIT Miscellaneous Information (Order Awaiting Action) 1 ea QS N/A 05/04/18 00:00 06/03/18 00:00 Mupirocin (Bactroban 2% Oint) 1 appln TID EXT 05/03/18 21:00 06/02/18 20:59 05/10/18 14:09 1 APPLN Diphenhydramine HCl (Benadryl Cap) 25 mg HS PRN PO 05/03/18 17:45 06/02/18 17:44 05/03/18 21:19 25 MG Insulin Aspart (novoLOG ASPART) SLIDING SCALE If C... ACHS SC 05/03/18 21:00 06/02/18 20:59 05/10/18 12:35 12 UNITS Glucose (Glucose 40% Gel) 15-30 GRAMS 15 GRAMS... UD PRN PO 05/03/18 20:00 06/02/18 19:59 Glucose (Glucose Chew Tab) 4-8 Tablets 4 Tabl... UD PRN PO 05/03/18 20:00 06/02/18 19:59 Dextrose (Dextrose 50% 50ML Syringe) 25-50ML 25ML FOR ... UD PRN IV 05/03/18 20:00 06/02/18 19:59 Glucagon (Glucagon Inj) 1 mg UD PRN SQ 05/03/18 20:00 06/02/18 19:59 Carbohydrates (Carbohydrates For Hypoglycemia) 15-30 GRAMS 15 grams if BSG 54-69... UD PRN PO 05/03/18 20:00 06/02/18 19:59 Magnesium Chloride (Slow-Mag Tab) 64 mg BID PO 05/06/18 09:00 06/05/18 08:59 05/10/18 07:57 64 MG Insulin Glargine (Lantus Solostar Pen) DAILY SC 05/08/18 09:00 06/07/18 08:59 05/10/18 07:56 50 UNITS Heparin Sodium/ Dextrose 500 ml @ 19 mls/hr Q24H IV 05/08/18 16:45 06/07/18 16:44 05/09/18 19:05 17 MLS/HR Potassium Chloride (Klor-Con M10) 30 meq TIDM PO 05/09/18 09:30 06/08/18 09:29 05/10/18 12:32 30 MEQ Warfarin Sodium (Coumadin Tab) 6 mg DAILY@16 PO 05/10/18 16:00 06/09/18 15:59 Lab Results: Last 24 Hours Test 05/09/18 16:33 05/09/18 18:53 05/09/18 20:48 05/10/18 05:16 Bedside Glucose 149 mg/dl 184 mg/dl Potassium Level 4.1 mmol/L 3.7 mmol/L Magnesium Level 2.1 mg/dl 2.1 mg/dl Prothrombin Time 15.6 SECONDS Prothromb Time International Ratio 1.5 Activated Partial Thromboplast Time 40.6 SECONDS Partial Thromboplastin Ratio 1.6 Sodium Level 139 mmol/L Chloride Level 105 mmol/L Carbon Dioxide Level 30 mmol/L Anion Gap 4.0 mmol/L Blood Urea Nitrogen 11 mg/dl Creatinine 0.57 mg/dl Est Creatinine Clear Calc Drug Dose 102.3 ml/min Estimated GFR () 113.5 Estimated GFR (Non- 98.0 BUN/Creatinine Ratio 20.0 Random Glucose 103 mg/dl Calcium Level 8.2 mg/dl Albumin 3.2 gm/dl Test 05/10/18 07:26 05/10/18 12:49 Bedside Glucose 131 mg/dl Activated Partial Thromboplast Time 71.7 SECONDS Partial Thromboplastin Ratio 2.8
[2018-05-10] MEDS ORDERED: WARFARIN SOD 6 MG TAB PO SCH (16:00)
[2018-05-10] MEDS: ACETAMINOPHEN 500 MG TAB PO PRN (21:04)
[2018-05-10 21:07] LABS: PTT PATIENT 46.5 SECONDS (21.0-31.0)
[2018-05-10] MEDS: ATORVASTATIN 40 MG TAB PO SCH (21:07)
[2018-05-10] MEDS: HEPARIN 25,000 UNIT/500ML D5W 500 ML IV SCH (21:53)
[2018-05-10] MEDS ORDERED: HEPARIN IV BOLUS 3,000 UNIT in SYRINGE 0 ML IV ONE (22:00)
[2018-05-11] VITALS (7 sets, daily range): BP systolic 107–135; BP diastolic 57–84; PULSE 65–76; TEMP 36.3–36.7; O2SAT 95–98; Ht 152.4 cm; Wt 94.0 kg
[2018-05-11 04:17] LABS: INR 1.4 (0.9-1.1)
[2018-05-11 04:22] LABS: CALCIUM 7.9 mg/dl (8.5-10.1); CREATININE 0.65 mg/dl (0.60-1.20); POTASSIUM 3.7 mmol/L (3.5-5.1)
[2018-05-11] MEDS ORDERED: POTASSIUM CHLORIDE 10 MEQ TABCR PO ONE (08:00)
--- NOTE | 2018-05-11 08:04 | Progress Note ---
Progress Note Date of Service May 11, 2018. Progress Note ATTENDING ADDENDUM A.m. labs reviewed, potassium 3.7/magnesium 2.1 Twelve-lead EKG this a.m. shows worsening of QTC prolongation 519(QTc was 480 yesterday) Goal is to keep potassium level above 4/magnesium above 2 Remains in sinus rhythm, no arrhythmia on Sotalol 80 mg PO BID Will give 20 meq. p.o. potassium now Patient is scheduled for 30 meq PO K in a.m =total 50 meq in AM Repeat potassium and mag level at 1400 repeat EKG in AM cont tele monitor
[2018-05-11] MEDS: CHOLECALCIFEROL 1000 INTER.UNIT TAB PO SCH (08:35)
[2018-05-11] MEDS: PANTOprazole SOD 40 MG TAB PO SCH ×2 (08:35→21:29)
[2018-05-11] MEDS: MAGNESIUM CHLORIDE 64MG DELAYED REL TAB PO SCH ×2 (08:35→21:31)
[2018-05-11] MEDS: ASPIRIN 81 MG ECTAB PO SCH (08:35)
[2018-05-11] MEDS: POTASSIUM CHLORIDE 10 MEQ TABCR PO SCH ×2 (08:35→21:30)
[2018-05-11] MEDS: VENLAFAXINE HCL XR 150 MG CAPXR PO SCH (08:35)
[2018-05-11] MEDS: FUROSEMIDE INJ 40 MG in SYRINGE 0 ML IV SCH ×2 (08:35→21:28)
[2018-05-11] MEDS: MUPIROCIN 2% OINT 22 GM TUBE EXT SCH ×3 (08:36→21:28)
[2018-05-11] MEDS: SOTALOL HCL 80 MG TAB PO SCH ×2 (08:36→16:58)
[2018-05-11] MEDS: FLUTICASONE PROPIONATE NA SPR 16 GM BTL NAE SCH (08:36)
[2018-05-11] MEDS: INSULIN GLARGINE SOLOSTAR 100 UNITS/ML 3 ML PEN SC SCH (08:46)
[2018-05-11] MEDS: INSULIN ASPART 100 UNITS/ML 3 ML PEN SC SCH ×4 (08:46→21:39)
[2018-05-11] MEDS ORDERED: WARFARIN SOD 10 MG TAB PO ONE (10:15)
--- NOTE | 2018-05-11 10:17 | Cardiology Follow-Up ---
Subjective Subjective Date of Service: May 11, 2018. Pt evaluation today including: conversation w/ patient, conversation w/ family , physical exam, chart review, lab review, review of studies, conversation w/ business sales consultant, review of inpatient medication list Additional Details: The patient had an uneventful night. No new cardiac complaints. Problem List Medical Problems: (1) Anticoagulated on Coumadin Status: Acute (2) Cirrhosis Permanent Comment: with portal hypertension, ascites Status: Chronic (3) Current use of [facility] anticoagulation Status: Acute (4) Portal hypertension Status: Acute (5) Severe anemia Status: Acute (6) Symptomatic anemia Status: Acute (7) Upper gastrointestinal bleed Status: Acute Social History Problems: (1) GERD (gastroesophageal reflux disease) Status: Chronic (2) Mechanical heart valve present Status: Acute Review of Systems Constitutional: No fever, No chills Respiratory: + shortness of breath, + dyspnea on exertion, No see HPI, No cough , No sputum, No wheezing, No dyspnea at rest, No hemoptysis, No problem reported Cardiac: + edema, No see HPI, No chest pain, No orthopnea, No PND, No claudication, No palpitations, No problem reported Endo: + fatigue Objective Vital Signs Last Vital Signs Documentation Date Time Temp Pulse Resp B/P (MAP) Pulse Ox O2 Delivery O2 Flow Rate FiO2 05/11/18 08:00 Room Air 05/11/18 06:49 36.3 76 22 122/65 (84) 97 05/11/18 03:32 96.0 Physical Exam: General Appearance: WD/WN, no apparent distress, + obese Eyes: bilateral eyes normal inspection, bilateral eyes PERRL, bilateral eyes EOMI ENT: normal ENT inspection, hearing grossly normal, pharynx normal Neck: supple, no adenopathy, thyroid normal, no JVD, no carotid bruits, trachea midline Respiratory/Chest: chest non-tender, normal breath sounds, no respiratory distress, no accessory muscle use, + decreased breath sounds (bases) Cardiovascular: regular rate, rhythm, no edema, no JVD, + gallop/S4 Abdomen: normal bowel sounds, non tender, soft, + distended, + pertinent finding (+fluid wave) Extremities: normal inspection, no calf tenderness, + pedal edema (Edema has improved) Neurologic/Psychiatric: 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 Paroxysmal atrial flutter 2. Diastolic heart failure 3. Mechanical AVR 4. Cirrhosis 5. Volume overload and ascites which is multifactorial Recommendations: The patient's warfarin has been restarted. Heparin needs to be maintained until the INR is therapeutic due to the mechanical aortic valve. Currently in sinus rhythm. The patient has no fluid restriction and her p.o. intake is up. She will be started on a 1500 cc fluid restriction. I do believe that we can decrease her IV Lasix to twice daily. Medications: Current Inpatient Medications Medications (Trade) Dose Ordered Sig/[place] Route Start Time Stop Time Status Last Admin Dose Admin Acetaminophen (Tylenol Tab) 650 mg Q4H PRN PO 05/03/18 15:45 06/02/18 15:44 05/09/18 21:19 650 MG Polyethylene (Miralax Powder Packet) 17 gm DAILY PRN PO 05/03/18 15:45 06/02/18 15:44 Sotalol HCl (Betapace Tab) 80 mg BID17 PO 05/03/18 17:00 06/02/18 16:59 05/11/18 08:36 80 MG Furosemide 40 mg/ Syringe 4 ml @ 4 mls/min TID IV 05/04/18 09:00 06/03/18 08:59 05/11/18 08:35 4 MLS/MIN Albuterol (Ventolin Hfa Inhaler) 2 puffs Q4 PRN INH 05/03/18 17:00 06/02/18 16:59 Aspirin (Ecotrin Tab) 81 mg QAM PO 05/04/18 09:00 06/03/18 08:59 05/11/18 08:35 81 MG Atorvastatin Calcium (Lipitor Tab) 80 mg HS PO 05/03/18 21:00 06/02/18 20:59 05/10/18 21:07 80 MG Buspirone HCl (Buspar Tab) 5 mg BID PO 05/03/18 21:00 06/02/18 20:59 05/11/18 08:34 5 MG Cyclobenzaprine HCl (Flexeril Tab) 5 mg TID PRN PO 05/03/18 17:00 06/02/18 16:59 Fluticasone Propionate (Flonase Nasal [place]) 2 sprays QAM BENITO 05/04/18 09:00 06/03/18 08:59 05/09/18 07:58 2 SPRAYS Folic Acid (Folvite Tab) 1 mg BID PO 05/03/18 21:00 06/02/18 20:59 05/11/18 08:34 1 MG Albuterol/ Ipratropium (Combivent Respimat Inh) 2 puffs BID PRN INH 05/03/18 17:00 06/02/18 16:59 Albuterol/ Ipratropium (Duoneb) 3 ml QID PRN INH 05/03/18 17:00 06/02/18 16:59 Nitroglycerin (Nitrostat Tab) 0.4 mg UD PRN UT 05/03/18 17:00 06/02/18 16:59 Pantoprazole Sodium (Protonix Tab) 40 mg BID PO 05/03/18 21:00 06/02/18 20:59 05/11/18 08:35 40 MG Tramadol HCl (Ultram Tab) 50 mg Q8 PRN PO 05/03/18 17:00 06/02/18 16:59 Venlafaxine HCl (effeXOR EXTENDED REL CAP) 150 mg QAM PO 05/04/18 09:00 06/03/18 08:59 05/11/18 08:35 150 MG Acetaminophen (Tylenol Tab) 500 mg HS PRN PO 05/03/18 17:00 06/02/18 16:59 05/10/18 21:04 500 MG Cholecalciferol (Vitamin D Tab) 2,000 inter.unit DAILY PO 05/04/18 09:00 06/03/18 08:59 05/11/18 08:35 2,000 INTER.UNIT Miscellaneous Information (Order Awaiting Action) 1 ea QS N/A 05/04/18 00:00 06/03/18 00:00 Mupirocin (Bactroban 2% Oint) 1 appln TID EXT 05/03/18 21:00 06/02/18 20:59 05/11/18 08:36 1 APPLN Diphenhydramine HCl (Benadryl Cap) 25 mg HS PRN PO 05/03/18 17:45 06/02/18 17:44 05/03/18 21:19 25 MG Insulin Aspart (novoLOG ASPART) SLIDING SCALE If C... ACHS SC 05/03/18 21:00 06/02/18 20:59 05/11/18 08:46 9 UNITS Glucose (Glucose 40% Gel) 15-30 GRAMS 15 GRAMS... UD PRN PO 05/03/18 20:00 06/02/18 19:59 Glucose (Glucose Chew Tab) 4-8 Tablets 4 Tabl... UD PRN PO 05/03/18 20:00 06/02/18 19:59 Dextrose (Dextrose 50% 50ML Syringe) 25-50ML 25ML FOR ... UD PRN IV 05/03/18 20:00 06/02/18 19:59 Glucagon (Glucagon Inj) 1 mg UD PRN SQ 05/03/18 20:00 06/02/18 19:59 Carbohydrates (Carbohydrates For Hypoglycemia) 15-30 GRAMS 15 grams if BSG 54-69... UD PRN PO 05/03/18 20:00 06/02/18 19:59 Magnesium Chloride (Slow-Mag Tab) 64 mg BID PO 05/06/18 09:00 06/05/18 08:59 05/11/18 08:35 64 MG Insulin Glargine (Lantus Solostar Pen) DAILY SC 05/08/18 09:00 06/07/18 08:59 05/11/18 08:46 50 UNITS Heparin Sodium/ Dextrose 500 ml @ 20 mls/hr Q24H IV 05/08/18 16:45 06/07/18 16:44 05/10/18 21:53 20 MLS/HR Potassium Chloride (Klor-Con M10) 30 meq TIDM PO 05/09/18 09:30 06/08/18 09:29 05/11/18 08:35 30 MEQ Warfarin Sodium (Coumadin Tab) 6 mg DAILY@16 PO 05/10/18 16:00 06/09/18 15:59 05/10/18 16:36 6 MG Lab Results: Last 24 Hours Test 05/10/18 11:39 05/10/18 12:49 05/10/18 16:20 05/10/18 20:04 Bedside Glucose 209 mg/dl 237 mg/dl Activated Partial Thromboplast Time 71.7 SECONDS 46.5 SECONDS Partial Thromboplastin Ratio 2.8 1.8 Test 05/10/18 20:44 05/11/18 03:50 05/11/18 10:05 Bedside Glucose 190 mg/dl Prothrombin Time 14.1 SECONDS Prothromb Time International Ratio 1.4 Activated Partial Thromboplast Time 59.0 SECONDS Partial Thromboplastin Ratio 2.3 Sodium Level 140 mmol/L Potassium Level 3.7 mmol/L Chloride Level 108 mmol/L Carbon Dioxide Level 27 mmol/L Anion Gap 5.0 mmol/L Blood Urea Nitrogen 12 mg/dl Creatinine 0.65 mg/dl Est Creatinine Clear Calc Drug Dose 90.1 ml/min Estimated GFR () 108.7 Estimated GFR (Non- 93.8 BUN/Creatinine Ratio 19.0 Random Glucose 165 mg/dl Calcium Level 7.9 mg/dl Magnesium Level 2.1 mg/dl
[2018-05-11 10:55] LABS: PTT PATIENT 47.2 SECONDS (21.0-31.0)
[2018-05-11] MEDS: ACETAMINOPHEN 325 MG TAB PO PRN (14:03)
[2018-05-11 15:07] LABS: POTASSIUM 3.9 mmol/L (3.5-5.1)
[2018-05-11] MEDS: HEPARIN 25,000 UNIT/500ML D5W 500 ML IV SCH (17:03)
--- NOTE | 2018-05-11 17:18 | Progress Note ---
Internal Med Progress Note Date of Service: May 11, 2018. Provider Documentation: SUBJECTIVE: Denies of any shortness of breath, no dyspnea on exertion Abdominal discomfort, lower extremity edema improved markedly No fever or chills OBJECTIVE: Vital Signs-as noted below Exam: General-very pleasant, no apparent distress Eyes- sclera nonicteric, pupils bilateral equal reactive to light, extraocular muscles intact ENT-moist oral mucosa Neck- supple, no jugular venous distention, no carotid bruit, no thyromegaly, trachea midline Lungs-clear to auscultate, no wheeze or rales Heart-regular S1-S2 Abdomen-soft, minimum ascites nontender bowel sounds active Extremities-trace bilateral lower extremity edema Neuro-no focal neurological deficit Psych-alert awake oriented 3, normal mood and affect Lymph nodes-no lymphadenopathy Lab data as noted below. ASSESSMENT & PLAN: A FLUTTER Presented with atrial flutter with 2: 1 conduction successful Cardioversion on 05/05/18 Remains in sinus with rate controlled On sotalol 80 mg twice daily Appreciate input from cardiology On IV heparin weight-based protocol, Coumadin resumed Will need to be on IV heparin drip until INR therapeutic 2.5-due to presence of metallic valve HYPOKALEMIA Continue to replace electrolytes to keep potassium > 4/mag >2 PROLONGED QTC Possible secondary to electrolyte derangement-low K/Slow-Mag Worsening of QTC > 500 No arrhythmia correct electrolytes as outlined above Daily wet process 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 Normal LV systolic function, EF 55-60%. Abnormal septal wall motion abnormality consistent with post-operative state, otherwise, no segmental left ventricular wall motion abnormalities are noted. Grade I diastolic dysfunction. There is a mechanical aortic valve. Doppler evidence of regurgitation is probably normal for this prosthetic aortic valve. The gradient is normal for this prosthetic aortic valve. There is severe mitral annular calcification. Calcified mitral apparatus. Significant mitral regurgitation is absent. There is no mitral valve stenosis. Severe tricuspid regurgitation. Severe left atrial enlargement. Symptom improved with aggressive diuresis based weight loss from 98.3 kg-94.3 Lasix dose adjusted to 40 mg IV twice daily Cardiology following Neurontin D/osmany by cardiology ( associated with lower ext edema ) Continue to monitor volume status VALVULAR HEART DISEASE STATUS POST MECHANICAL AVR -Status post AVR-more than 20 years back ECHO shows: There is a mechanical aortic valve.Doppler evidence of regurgitation is probably normal for this prosthetic aortic valve. The gradient is normal for this prosthetic aortic valve. Severe mitral calcification, without significant MR or MS On Coumadin anticoagulation, goal INR 2.5-3.5 Coumadin resumed, with IV heparin bridge-until INR 2.5 [place] CIRRHOSIS/ASCITES History of any NAFLD cirrhosis-follows with [facility] GI Dr. Muñoz Had recent EGD-with evidence of esophageal varices Presented with worsening of ascites-possible secondary to right heart failure/ valvular heart disease appreciate input from GI Ascites has significantly improved after aggressive diuresis Ultrasound of abdomen shows minimum ascitic fluid, unable to perform diagnostic paracentesis Coumadin resumed Continue diuresis as outlined by cardiology TYPE 2 DIABETES Poorly controlled Recent hemoglobin A1c on 03/28/15 was 9.6 On basal Lantus/NovoLog sliding scale nuclear security officer consulted ANEMIA OF CHRONIC DISEASE H&H stable No evidence of bleeding CODE STATUS: Full code DVT PROPHYLAXIS IV heparin weight-based protocol/Coumadin DISPOSITION Patient is independent in her ADLs Lives at home with her Has good family support Expected to be discharged home when medically stable Patient will need to be on IV heparin bridge therapy until INR 2.5 Cardiology follow-up with Wing Reynolds PA-C Gastroenterology follow-up with Dr. Muñoz Medicine follow-up with Dr. Luis Melo Vital Signs: Date Time Temp Pulse Resp B/P (MAP) Pulse Ox O2 Delivery O2 Flow Rate FiO2 05/11/18 23:19 36.3 72 18 135/79 (97) 96 Room Air 05/11/18 20:21 98 Room Air 05/11/18 19:17 36.7 65 17 110/57 (74) 95 Room Air 05/11/18 16:00 Room Air 05/11/18 15:00 36.3 75 18 132/84 (100) 97 Room Air 05/11/18 12:00 36.6 66 18 128/74 (92) 95 Room Air 05/11/18 08:00 Room Air 05/11/18 06:49 36.3 76 22 122/65 (84) 97 Room Air 05/11/18 03:32 36.4 70 20 107/72 (84) Room Air 96.0 Lab Results: Results Past 24 Hours Test 05/11/18 03:50 05/11/18 07:30 05/11/18 10:05 05/11/18 11:43 Range/Units Prothrombin Time 14.1 9.0-12.0 SECONDS Prothromb Time International Ratio 1.4 0.9-1.1 Activated Partial Thromboplast Time 59.0 47.2 21.0-31.0 SECONDS Partial Thromboplastin Ratio 2.3 1.8 Sodium Level 140 136-145 mmol/L Potassium Level 3.7 3.5-5.1 mmol/L Chloride Level 108 98-107 mmol/L Carbon Dioxide Level 27 21-32 mmol/L Anion Gap 5.0 3-11 mmol/L Blood Urea Nitrogen 12 7-18 mg/dl Creatinine 0.65 0.60-1.20 mg/dl Est Creatinine Clear Calc Drug Dose 90.1 ml/min Estimated GFR () 108.7 Estimated GFR (Non- 93.8 BUN/Creatinine Ratio 19.0 10-20 Random Glucose 165 70-99 mg/dl Calcium Level 7.9 8.5-10.1 mg/dl Magnesium Level 2.1 1.8-2.4 mg/dl Bedside Glucose 131 193 70-90 mg/dl Test 05/11/18 14:29 05/11/18 16:10 05/11/18 20:37 Range/Units Potassium Level 3.9 3.5-5.1 mmol/L Magnesium Level 2.2 1.8-2.4 mg/dl Bedside Glucose 143 194 70-90 mg/dl
[2018-05-11] MEDS: ATORVASTATIN 40 MG TAB PO SCH (21:29)
[2018-05-12 04:07] VITALS: BP 120/82; PULSE 71; TEMP 36.7; O2SAT 92
[2018-05-12 06:21] LABS: INR 1.6 (0.9-1.1)
[2018-05-12 06:30] LABS: CALCIUM 8.2 mg/dl (8.5-10.1); CREATININE 0.64 mg/dl (0.60-1.20); POTASSIUM 3.7 mmol/L (3.5-5.1)
[2018-05-12 07:02] VITALS: BP 123/76; PULSE 73; TEMP 36.7; O2SAT 96
[2018-05-12] MEDS: FLUTICASONE PROPIONATE NA SPR 16 GM BTL NAE SCH (08:56)
[2018-05-12] MEDS: MUPIROCIN 2% OINT 22 GM TUBE EXT SCH ×3 (08:56→21:02)
[2018-05-12] MEDS: FUROSEMIDE INJ 40 MG in SYRINGE 0 ML IV SCH ×2 (08:58→21:02)
[2018-05-12] MEDS: PANTOprazole SOD 40 MG TAB PO SCH ×2 (08:59→21:05)
[2018-05-12] MEDS: POTASSIUM CHLORIDE 10 MEQ TABCR PO SCH ×2 (08:59→21:05)
[2018-05-12] MEDS: SOTALOL HCL 80 MG TAB PO SCH ×2 (08:59→17:07)
[2018-05-12] MEDS: VENLAFAXINE HCL XR 150 MG CAPXR PO SCH (09:00)
[2018-05-12] MEDS: ASPIRIN 81 MG ECTAB PO SCH (09:00)
[2018-05-12] MEDS: CHOLECALCIFEROL 1000 INTER.UNIT TAB PO SCH (09:00)
[2018-05-12] MEDS: MAGNESIUM CHLORIDE 64MG DELAYED REL TAB PO SCH ×2 (09:00→21:03)
[2018-05-12] MEDS: INSULIN ASPART 100 UNITS/ML 3 ML PEN SC SCH ×4 (09:35→21:11)
[2018-05-12] MEDS: INSULIN GLARGINE SOLOSTAR 100 UNITS/ML 3 ML PEN SC SCH (09:36)
[2018-05-12 12:46] VITALS: BP 125/73; PULSE 65; TEMP 36.8; O2SAT 94
--- NOTE | 2018-05-12 14:31 | Cardiology Follow-Up ---
Subjective Subjective Date of Service: May 12, 2018. Pt evaluation today including: conversation w/ patient, conversation w/ family , physical exam, chart review, lab review, review of studies, review of inpatient medication list Additional Details: The patient is on a fluid restriction and had a diuresis that is put her in negative numbers. She has no current cardiac complaints. INR is 1.6. Problem List Medical Problems: (1) Anticoagulated on Coumadin Status: Acute (2) Cirrhosis Permanent Comment: with portal hypertension, ascites Status: Chronic (3) Current use of [facility] anticoagulation Status: Acute (4) Portal hypertension Status: Acute (5) Severe anemia Status: Acute (6) Symptomatic anemia Status: Acute (7) Upper gastrointestinal bleed Status: Acute Social History Problems: (1) GERD (gastroesophageal reflux disease) Status: Chronic (2) Mechanical heart valve present Status: Acute Review of Systems Constitutional: No fever, No chills Respiratory: + shortness of breath, + dyspnea on exertion, No see HPI, No cough , No sputum, No wheezing, No dyspnea at rest, No hemoptysis, No problem reported Cardiac: + edema, No see HPI, No chest pain, No orthopnea, No PND, No claudication, No palpitations, No problem reported Endo: + fatigue Objective Vital Signs Last Vital Signs Documentation Date Time Temp Pulse Resp B/P (MAP) Pulse Ox O2 Delivery O2 Flow Rate FiO2 05/12/18 12:46 36.8 65 20 125/73 (90) 94 Room Air 05/11/18 03:32 96.0 Physical Exam: General Appearance: WD/WN, no apparent distress, + obese Eyes: bilateral eyes normal inspection, bilateral eyes PERRL, bilateral eyes EOMI ENT: normal ENT inspection, hearing grossly normal, pharynx normal Neck: supple, no adenopathy, thyroid normal, no JVD, no carotid bruits, trachea midline Respiratory/Chest: chest non-tender, normal breath sounds, no respiratory distress, no accessory muscle use, + decreased breath sounds (bases) Cardiovascular: regular rate, rhythm, no edema, no JVD, + gallop/S4 Abdomen: normal bowel sounds, non tender, soft, + distended, + pertinent finding (+fluid wave) Extremities: normal inspection, no calf tenderness, + pedal edema (Edema has improved) 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 Paroxysmal atrial flutter 2. Diastolic heart failure 3. Mechanical AVR 4. Cirrhosis 5. Volume overload and ascites which is multifactorial Recommendations: The patient's INR is 1.6 today. She is willing to do Lovenox injections if she is able to go home. She is still on IV diuretics however, she still has some ankle edema and may benefit from an additional day of intravenous diuretics.
[2018-05-12 15:00] VITALS: BP 105/60; PULSE 68; TEMP 36.6; O2SAT 96
[2018-05-12] MEDS: WARFARIN SOD 5 MG TAB PO SCH (17:07)
[2018-05-12] MEDS: HEPARIN 25,000 UNIT/500ML D5W 500 ML IV SCH (17:11)
--- NOTE | 2018-05-12 17:49 | Progress Note ---
Internal Med Progress Note Date of Service: May 12, 2018. Provider Documentation: SUBJECTIVE: Patient feels fine, no shortness of breath orthopnea Lower extremity edema improved No evidence of ascites Eager to be discharged home OBJECTIVE: Vital Signs-as noted below Exam: General-very pleasant, no apparent distress Eyes- sclera nonicteric, pupils bilateral equal reactive to light, extraocular muscles intact ENT-moist oral mucosa Neck- supple, no jugular venous distention, no carotid bruit, no thyromegaly, trachea midline Lungs-clear to auscultate, no wheeze or rales Heart-regular S1-S2 Abdomen-soft, minimum ascites nontender bowel sounds active Extremities-trace bilateral lower extremity edema Neuro-no focal neurological deficit Psych-alert awake oriented 3, normal mood and affect Lymph nodes-no lymphadenopathy Lab data as noted below. ASSESSMENT & PLAN: A FLUTTER Presented with atrial flutter with 2: 1 conduction successful Cardioversion on 05/05/18 Remains in sinus with rate controlled On sotalol 80 mg twice daily Appreciate input from cardiology On IV heparin weight-based protocol, Coumadin resumed Will need bridge therapy deal INR therapeutic 2.5-due to presence of metallic valve Patient will continue Lovenox bridge at home Comfortable in Lovenox administration, As Lovenox supply at home which was prescribed to her for bridge therapy for prior procedures HYPOKALEMIA Replaced Monitor electrolytes to keep potassium > 4/mag >2 PROLONGED QTC Possible secondary to electrolyte derangement-low K/Slow-Mag No arrhythmia correct electrolytes as outlined above Daily pharmacy operations specialist in telemetry ACUTE ON CHRONIC CHF WITH DIASTOLIC DYSFUNCTION/RIGHT HEART FAILURE/VALVULAR HEART DISEASE: Volume status improved after aggressive diuresis Presented with volume overload-increased abdominal girth/ascites lower extremity edema/increased wt gain of 40 lb in 2 weeks was on Lasix 80 mg daily ( recently increased by PCP ) ECHO: Normal LV chamber size with moderate concentric LVH. Normal LV systolic function, EF 55-60%. Abnormal septal wall motion abnormality consistent with post-operative state, otherwise, no segmental left ventricular wall motion abnormalities are noted. Grade I diastolic dysfunction. There is a mechanical aortic valve. Doppler evidence of regurgitation is probably normal for this prosthetic aortic valve. The gradient is normal for this prosthetic aortic valve. There is severe mitral annular calcification. Calcified mitral apparatus. Significant mitral regurgitation is absent. There is no mitral valve stenosis. Severe tricuspid regurgitation. Severe left atrial enlargement. Symptom improved with aggressive diuresis based weight loss from 98.3 kg-94.3 Lasix dose adjusted to 40 mg IV twice daily Fluid restriction 1500 mL/day Possible transition to oral Lasix tomorrow, plan to add metolazone Cardiology following Neurontin D/osmany by cardiology ( associated with lower ext edema ) Continue to monitor volume status VALVULAR HEART DISEASE STATUS POST MECHANICAL AVR -Status post AVR-more than 20 years back ECHO shows: There is a mechanical aortic valve.Doppler evidence of regurgitation is probably normal for this prosthetic aortic valve. The gradient is normal for this prosthetic aortic valve. Severe mitral calcification, without significant MR or MS On Coumadin anticoagulation, goal INR 2.5-3.5 Coumadin resumed, with IV heparin bridge-until INR 2.5 Patient can be discharged home with Lovenox bridge [place] CIRRHOSIS/ASCITES History of any NAFLD cirrhosis-follows with [facility] GI Dr. Muñoz Had recent EGD-with evidence of esophageal varices Presented with worsening of ascites-possible secondary to right heart failure/ valvular heart disease appreciate input from GI Ascites has significantly improved after aggressive diuresis Ultrasound of abdomen shows minimum ascitic fluid, unable to perform diagnostic paracentesis Coumadin resumed Continue diuresis as outlined by cardiology TYPE 2 DIABETES Poorly controlled Recent hemoglobin A1c on 03/28/15 was 9.6 On basal Lantus/NovoLog sliding scale cosmetology educator consulted ANEMIA OF CHRONIC DISEASE H&H stable No evidence of bleeding CODE STATUS: Full code DVT PROPHYLAXIS IV heparin weight-based protocol/Coumadin DISPOSITION possible discharge home tomorrow with Coumadin and Lovenox bridge therapy Cardiology follow-up with Wing Reynolds PA-C Gastroenterology follow-up with Dr. Muñoz Medicine follow-up with Dr. Luis Melo Vital Signs: Date Time Temp Pulse Resp B/P (MAP) Pulse Ox O2 Delivery O2 Flow Rate FiO2 05/12/18 19:17 Room Air 05/12/18 19:02 36.7 75 18 143/84 (103) 92 Room Air 05/12/18 16:00 Room Air 05/12/18 15:00 36.6 68 18 105/60 (75) 96 Room Air 05/12/18 12:46 36.8 65 20 125/73 (90) 94 Room Air 05/12/18 08:00 Room Air 05/12/18 07:02 36.7 73 18 123/76 (92) 96 Room Air 05/12/18 04:07 36.7 71 17 120/82 (95) 92 Room Air 05/11/18 23:19 36.3 72 18 135/79 (97) 96 Room Air 05/11/18 20:21 98 Room Air Lab Results: Results Past 24 Hours Test 05/11/18 20:37 05/12/18 05:36 05/12/18 07:21 05/12/18 11:28 Range/Units Bedside Glucose 194 142 164 70-90 mg/dl Prothrombin Time 16.9 9.0-12.0 SECONDS Prothromb Time International Ratio 1.6 0.9-1.1 Activated Partial Thromboplast Time 51.0 21.0-31.0 SECONDS Partial Thromboplastin Ratio 2.0 Sodium Level 139 136-145 mmol/L Potassium Level 3.7 3.5-5.1 mmol/L Chloride Level 107 98-107 mmol/L Carbon Dioxide Level 26 21-32 mmol/L Anion Gap 6.0 3-11 mmol/L Blood Urea Nitrogen 10 7-18 mg/dl Creatinine 0.64 0.60-1.20 mg/dl Est Creatinine Clear Calc Drug Dose 91.2 ml/min Estimated GFR () 109.3 Estimated GFR (Non- 94.3 BUN/Creatinine Ratio 15.7 10-20 Random Glucose 140 70-99 mg/dl Calcium Level 8.2 8.5-10.1 mg/dl Magnesium Level 2.2 1.8-2.4 mg/dl Test 05/12/18 16:08 Range/Units Bedside Glucose 127 70-90 mg/dl
[2018-05-12 19:02] VITALS: BP 143/84; PULSE 75; TEMP 36.7; O2SAT 92
[2018-05-12] MEDS ORDERED: BTP80 PO (19:54)
[2018-05-12] MEDS ORDERED: SLWMEC PO (19:54)
[2018-05-12] MEDS ORDERED: POTA10CA28 PO (19:54)
--- NOTE | 2018-05-12 19:56 | Discharge Instructions ---
Discharge Instructions Date of Service May 12, 2018. Admission Reason for Admission: Atrail Flutter; Volume Overload Discharge Discharge Diagnosis / Problem: A FLUTTER/ACUTE CHF WITH DIASTOLIC DYSFUNCTION/ [place] CIRRHOSIS OF LIVER Discharge Goals Goal(s): Decrease discomfort, Improve function, Increase independence, Improve disease control, Therapeutic intervention Activity Recommendations Activity Limitations: resume your previous activity . Instructions / Follow-Up Instructions / Follow-Up HOSPITAL FOLLOW-UP WITH DR MARTINEZ IN A WEEK , OFFICE WILL CALL WITH APPOINTMENT LAB WORK : BASIC METABOLIC PANEL ON NEXT OFFICE VISIT /ORDER IS ALREADY IN CLINIC ASK FOR LAB WORK TO BE DONE WHEN CHECKING IN FOR NEXT APPOINTMENT CARDIOLOGY FOLLOW UP WITH POLI LAGUERRE PA-C/DR FERNANDEZ IN 2 WEEKS , CARDIOLOGY OFFICE WILL CALL WITH APPOINTMENT YOU ARE STARTED ON TWO NEW WATER PILLS ALDACTONE 25 MG DAILY TORSEMIDE 20 MG DAILY DO NOT TAKE LASIX YOU ARE ASKED TO LIMIT TOTAL FLUID INTAKE 1500 ML/DAY -to prevent volume overload/worsening of lower extremity swelling/abdominal swelling INCIDENTAL FINDING OF RIGHT OVARY 2.4 CM CYST -NOTED IN CT ABDOMEN PELVIS YOU WILL NEED OUTPATIENT PELVIC ULTRASOUND AND MATERIAL WORKER REFERRAL Call your Primary Care doctor if any of the following symptoms or problems start or get worse: * Shortness of breath or difficulty breathing * Wake up at night short of breath * Chest pain * Cough * Swelling of your hands, feet, or legs * More fatigued or tired with your normal activity * Palpitations - sudden fast heart beats WEIGHT * Weigh yourself every morning after using the bathroom. * Use the same scale. * Wear the same amount of clothing. * Write your weight down on a chart. * Call your Primary Care doctor if you gain more than 2-3 pounds in 1-2 days. MEDICATIONS * Use this discharge instruction sheet for medication instructions. * Take your medications at the time your doctor ordered. * Do not skip a dose of your medicines. * If you miss a dose of medicine, take it as soon as possible, but DO NOT DOUBLE A DOSE. * Read your medicine information when you get home. * Know all of the side effects of your medicine. If in doubt, ask your pharmacist * Call your Primary Care doctor's office if you have any side effects. * Be sure all of your doctors know what medicine and herbs you take (including cold, flu, and herbal medicine). Take the following with you to your follow-up doctor appointments: * Weight Chart * Medication List * List of questions Do not drink excessive alcohol, beer or wine. Current Hospital Diet Patient's current hospital diet: Diabetes Type 2 Diet, AHA Diet (Heart Healthy) , Low Sodium Diet (2gm Na) Discharge Diet Recommended Diet: Low Sodium Diet (2gm Na), Diabetes Type 2 Diet Fluid Restriction: 1500 ml (6 cups) Procedures Procedures Performed: DC cardioversion Start time: 923 stop time: 930 Pending Studies Studies pending at discharge: no Medical Emergencies . Who to Call and When: Call 911 or go to the Emergency Room if: * If at any time you feel your situation is an emergency * You have tightness or pain in your chest that does not go away with rest or Nitroglycerin * You are very short of breath even with rest . Non-Emergent Contact Non-Emergency issues call your: Primary Care Provider . . "Provider Documentation" section prepared by Yvonne Meyers. .
[2018-05-12] MEDS: ATORVASTATIN 40 MG TAB PO SCH (21:05)
[2018-05-12] MEDS: ACETAMINOPHEN 325 MG TAB PO PRN (21:43)
[2018-05-12 23:07] VITALS: BP 127/76; PULSE 67; TEMP 36.6; O2SAT 97
[2018-05-13] VITALS (7 sets, daily range): BP systolic 125–149; BP diastolic 66–80; PULSE 64–70; TEMP 36.4–36.9; O2SAT 95–97
[2018-05-13 06:47] LABS: INR 2.2 (0.9-1.1)
[2018-05-13 06:50] LABS: CALCIUM 8.3 mg/dl (8.5-10.1); CREATININE 0.51 mg/dl (0.60-1.20); POTASSIUM 3.7 mmol/L (3.5-5.1)
[2018-05-13 07:37] LABS: PTT PATIENT 57.8 SECONDS (21.0-31.0)
[2018-05-13] MEDS: FLUTICASONE PROPIONATE NA SPR 16 GM BTL NAE SCH (09:00)
[2018-05-13] MEDS: SOTALOL HCL 80 MG TAB PO SCH (10:07)
[2018-05-13] MEDS: CHOLECALCIFEROL 1000 INTER.UNIT TAB PO SCH (10:07)
[2018-05-13] MEDS: ASPIRIN 81 MG ECTAB PO SCH (10:07)
[2018-05-13] MEDS: POTASSIUM CHLORIDE 10 MEQ TABCR PO SCH (10:07)
[2018-05-13] MEDS: PANTOprazole SOD 40 MG TAB PO SCH (10:07)
[2018-05-13] MEDS: VENLAFAXINE HCL XR 150 MG CAPXR PO SCH (10:07)
[2018-05-13] MEDS: MAGNESIUM CHLORIDE 64MG DELAYED REL TAB PO SCH (10:07)
[2018-05-13] MEDS: FUROSEMIDE INJ 40 MG in SYRINGE 0 ML IV SCH (10:08)
[2018-05-13] MEDS: MUPIROCIN 2% OINT 22 GM TUBE EXT SCH (10:08)
[2018-05-13] MEDS: INSULIN ASPART 100 UNITS/ML 3 ML PEN SC SCH ×2 (10:12→12:50)
[2018-05-13] MEDS: INSULIN GLARGINE SOLOSTAR 100 UNITS/ML 3 ML PEN SC SCH (10:13)
[2018-05-13] MEDS ORDERED: SPIRONOLACTONE 25 MG TAB PO ONE (14:00)
--- NOTE | 2018-05-13 14:08 | Cardiology Follow-Up ---
Subjective General Date of Service: May 13, 2018. Chief Complaint: Follow-up, edema Pt evaluation today including: conversation w/ patient, physical exam History of Present Illness The patient is a 62 year old female seen in cardiology follow-up. The patient' s assessed by the undersigned for the first time this admission today having been followed by Dr. Castro earlier this hospital stay. She notes that she is feeling comfortable. She is eager to go home. Although her daily weight readings make it appears that she has only trended down a kilogram or so, she has had vigorous urine output noted over the last several days by her intake and uptake summary reports. Her abdominal swelling and lower extremity edema have apparently improved significantly. Telemetry reveals stable sinus rhythm with mildly prolonged QT interval 504 ms in the setting of interventricular conduction delay, which is unchanged. Allergies Coded Allergies: Ciprofloxacin (Verified Adverse Reaction, Mild, vomitting, 05/03/18) Erythromycin (Verified Adverse Reaction, Mild, vomiting, 05/03/18) Hydroxyzine (Verified Adverse Reaction, Mild, runny nose and eyes water, ) Sulfa Antibiotics (Verified Adverse Reaction, Mild, vomitting, 05/03/18) Tetracycline (Verified Adverse Reaction, Mild, vomitting, 05/03/18) Social History Smoking Status: Never Smoker Hx Tobacco Use In Past Year?: No Hx Alcohol Use - Type And Amou: No Hx Substance Use - Type And Am: No Problem List Medical Problems: (1) Anticoagulated on Coumadin Status: Acute (2) Cirrhosis Permanent Comment: with portal hypertension, ascites Status: Chronic (3) Current use of buttermaker continuous churn anticoagulation Status: Acute (4) Portal hypertension Status: Acute (5) Severe anemia Status: Acute (6) Symptomatic anemia Status: Acute (7) Upper gastrointestinal bleed Status: Acute Social History Problems: (1) GERD (gastroesophageal reflux disease) Status: Chronic (2) Mechanical heart valve present Status: Acute Physical Exam Vital Signs Last Vital Signs Documentation Date Time Temp Pulse Resp B/P (MAP) Pulse Ox O2 Delivery O2 Flow Rate FiO2 05/13/18 12:00 36.6 69 20 128/75 (92) 95 Room Air 05/11/18 03:32 96.0 Physical Exam Constitutional: Level of Distress: NAD, chronically ill Head: normocephalic ENMT: normal ENT inspection Neck: supple Lungs: Auscultation: no wheezing, no rales/crackles, no rhonchi Cardiovascular: Heart Auscultation: RRR, pertinent finding ([place] prosthetic heart sounds noted.) Abdomen: Inspection & Palpation: soft, pertinent finding (Nontender, mild to moderate residual ascites noted per physical exam) Extremities: pertinent finding (Trace ankle, lower extremity edema) Neurologic: Gait & Station: pertinent finding (No focal deficits) Assessment and Plan Assessment and Plan Impression: 62-year-old female 1. Multifactorial volume overload due to left ventricular diastolic dysfunction , right-sided heart failure tricuspid regurgitation, and cirrhosis perhaps due to right heart failure versus [place] 2. Mild hypokalemia 3. History of paroxysmal atrial flutter, in sinus rhythm, on sotalol 4. History of aortic valve replacement 3 with bileaflet, mechanical, [place] valve prosthesis placed in 2004 5. Coronary artery disease with post CABG and LAD intervention, stenting 2015 6. Chronic anemia, with multiple past hospitalizations for symptomatic anemia requiring multiple transfusions, history of esophageal varices as well as gastric AVM cauterization, mechanical valve hemolysis Discussion/recommendations: The patient is eager for discharge. Her anticoagulation been placed on hold with thoughts that she would require invasive paracentesis, but then her fluid was mobilized with medication therapy. She been bridged with heparin. Her INR on Coumadin today is 2.6. Given the fact that she has an older generation mechanical aortic valve placed in 2004, Toby INR for her would be 2.5-3.5, however she has had multiple past life-threatening bleeding episodes and I think at present it is most prudent to discontinue her heparin bridge with ongoing Coumadin less low-dose aspirin. Regarding her diuretic therapy. She has been on IV furosemide for approximately 10 days. Prior diuretic dose was furosemide 40 mg p.o. daily along with potassium chloride 10 mEq, 2 tablets every morning and 1 tablet every afternoon. Recommend discharge on spironolactone 25 mg by mouth daily. Per review of her historical metabolic panels, she has not had issues with hyperkalemia as far as I could see recently. Cancel home dose of furosemide in favor of transition to torsemide 20 mg by mouth daily in the morning. Continue prior to hospital dose of potassium chloride, 20 mEq every morning, 10 mEq every afternoon. Recommend cardiology follow-up within 1-2 weeks, patient well-known to Dr. Adams and Mr. Reynolds. Recommend chemistry panel to be performed at time of visit, or prior. Case discussed by telephone with Dr. Meyers. Laboratory Results Last 24 Hours Test 05/12/18 16:08 05/12/18 20:18 05/13/18 05:54 05/13/18 06:50 Bedside Glucose 127 mg/dl 205 mg/dl Prothrombin Time 22.6 SECONDS Prothromb Time International Ratio 2.2 Sodium Level 141 mmol/L Potassium Level 3.7 mmol/L Chloride Level 109 mmol/L Carbon Dioxide Level 24 mmol/L Anion Gap 8.0 mmol/L Blood Urea Nitrogen 9 mg/dl Creatinine 0.51 mg/dl Est Creatinine Clear Calc Drug Dose 114.2 ml/min Estimated GFR () 117.8 Estimated GFR (Non- 101.6 BUN/Creatinine Ratio 17.0 Random Glucose 90 mg/dl Calcium Level 8.3 mg/dl Magnesium Level 2.1 mg/dl Activated Partial Thromboplast Time 57.8 SECONDS Partial Thromboplastin Ratio 2.2 Test 05/13/18 07:13 05/13/18 11:10 Bedside Glucose 97 mg/dl 209 mg/dl
[2018-05-13] MEDS ORDERED: TORS20TA3 PO (15:02)
[2018-05-13] MEDS ORDERED: SPIR25TA6 PO (15:02)
[2018-05-13] MEDS: WARFARIN SOD 5 MG TAB PO SCH (15:43)
--- NOTE | 2018-05-13 16:15 | Discharge Summary ---
Discharge Summary Date of Service May 13, 2018. Discharge Summary Admission Date: May 03, 2018 at 15:28 Discharge Date: May 13, 2018 Discharge Disposition: Home Principal Diagnosis: A FLUTTER/ACUTE CHF WITH DIASTOLIC DYSFUNCTION/[place] CIRRHOSIS OF LIVER Procedures: IMAGING 1. Chest x-ray one view portable Cardiomegaly without overt pulmonary edema. Subsegmental left basilar opacity favoring atelectasis or scarring 2. CT abdomen pelvis with IV contrast: Linear metallic foreign body within the lumen of small bowel. No bowel obstruction or evidence of ureteral perforation. No free air. Surgical consultation advised. Correlate with patient's ingestion history. -Cirrhosis with portal hypertension evidenced by varices and ascites -Anasarca may be due to combination of cardiomegaly and portal hypertension -Bilateral pleural effusions -Right ovary 2.4 cm cyst. This is somewhat unexpected in the postmenopausal female and could be evaluated on nonurgent basis with ultrasound -Diverticulosis -Postsurgical changes of aortic valve replacement 3. Ultrasound of abdomen -Minimal right upper quadrant ascites TRANSTHORACIC ECHOCARDIOGRAM: Normal LV chamber size with moderate concentric LVH. EF 5560% Abnormal septal wall motion abnormality consistent postoperative state, otherwise no segmental left ventricular wall motion abnormalities are noted. Grade 1 diastolic dysfunction There is a metallic aortic valve. Doppler evidence of regurgitation is probably normal for the prosthetic aortic valve. There is severe mitral annular calcification. Calcified mitral apparatus. Significant mitral regurgitation is absent. There is no mitral valve stenosis Severe tricuspid regurgitation Severe left atrial enlargement Consultations: [facility] Medication Reconciliation New Medications: Magnesium Chloride (Slow-Mag Tab) 64 Mg Tabcr 64 MG PO BID for 30 Days, #60 TABS 3 Refills Sotalol HCl (Sotalol HCl) 80 Mg Tab 80 MG PO BID for 30 Days, #60 TAB Spironolactone (Spironolactone) 25 Mg Tab 25 MG PO QAM for 30 Days, #30 TAB 3 Refills Torsemide (Torsemide) 20 Mg Tab 20 MG PO QAM for 30 Days, #30 TAB 3 Refills Continued Medications: Acetaminophen/Diphenhydramine (Tylenol Pm) 500 Mg/25 Mg Tab 1 TAB PO HS PRN for Sleep Albuterol Sulfate (Proventil Hfa) 108 Mcg/Act Aer 2 PUFFS PO Q4 PRN for Wheezing Aspirin (Aspirin Ec) 81 Mg Tab 81 MG PO QAM TUESDAY,TUESDAY,TUESDAY Atorvastatin (Lipitor) 80 Mg Tab 80 MG PO HS Buspirone HCl (Buspirone HCl) 5 Mg Tab 5 MG PO BID Cholecalciferol (Vitamin D3) 2,000 Unit Cap 2000 UNIT PO DAILY Cyclobenzaprine Hcl (Flexeril) 10 Mg Tab 5 MG PO TID PRN for Muscle Spasms, #21 TAB Fluticasone Propionate (Nasal) (Flonase Allergy Relief) 50 Mcg/Act Spr 2 SPRAYS BENITO QAM Folic Acid (Folic Acid) 1 Mg Tab 1 MG PO BID Insulin Glargine (Lantus) 100 Unit/Ml Inj 60 UNITS SC QAM Insulin Lispro (Human) (Humalog) 100 Unit/Ml Inj 20 UNITS SQ TIDM Ipratropium-Albuterol (Combivent Respimat) 1 Aer Aer 2 PUFFS INH BID PRN for Allergic Reaction Ipratropium-Albuterol (Duoneb) 3 Ml Nebu 1 TREATMENT INH QID PRN for SOB/Wheezing Iron-Vitamin C (Vitron-C) 1 Tab Tab 1 TAB PO DAILY Lisinopril (Lisinopril) 2.5 Mg Tab 2.5 MG PO QAM Metformin Hcl (Glucophage) 1,000 Mg Tab 1000 MG PO BID Mupirocin 2% (Bactroban 2%) 30 Gm Cr 1 APPLN EXT TID, TUBE Nitroglycerin (Nitrostat) 0.4 Mg Tab 0.4 MG UT UD PRN for Chest Pain Ondansetron Hcl (Zofran) 4 Mg Tab 4 MG PO Q6 PRN for Nausea Pantoprazole (Protonix) 40 Mg Tab 40 MG PO BID Potassium Chloride (Micro-K Ext Rel) 10 Meq Capcr 20 MEQ PO QAM Potassium Chloride (Potassium Chloride Er) 10 Meq Cap 1 CAP PO QPM for 90 Days, CAP 1 Refill Risperidone (Risperdal) 0.5 Mg Tab 1 MG PO HS Venlafaxine Hcl (Venlafaxine Hcl Er) 150 Mg Tab 150 MG PO QAM Warfarin Sod (Coumadin) 4 Mg Tab 6 MG PO MoFr Warfarin Sodium (Warfarin Sodium) 4 Mg Tab 1 TAB PO SuTuWeThSa for 90 Days, TAB 1 Refill Discontinued Medications: Furosemide (Lasix) 40 Mg Tab 40 MG PO DAILY Gabapentin (Neurontin) 100 Mg Cap 100 MG PO TID Propranolol (Inderal) 10 Mg Tab 10 MG PO TID Admission Information HPI (per Admitting provider): This is a 62yoF with a PMH of diastolic heart failure 2/2 valvular disease, aortic stenosis s/p mechanical valve replacement, NAFLD cirrhosis with portal HTN, CAD (s/p CABG), DM II and other medical problems listed below who presents with abdominal distention 2 weeks. With the fluid accumulation in her abdomen , patient notes that she has gained ~40 pounds. Has associated dyspnea on exertion and a dry cough. Was evaluated at [facility] 10 days ago and was to follow-up with her PCP, who increased Lasix 40mg PO to twice daily for 3 days and then resume Lasix 40 mg once daily. Abdomen has become more distended and patient has become more dyspneic since then, so she came to ED for further evaluation. Denies any increased intake of salty foods or medication non- compliance. Denies any fever, chills, lightheadedness, visual changes, chest pain, nausea, vomiting, hematemesis, dysuria or constipation. Stools have been loose over the past week or so since she completed a course of Keflex for UTI. No hematemesis or melena. In ED, patient was noted to be tachycardic and EKG revealed A flutter with heart rate in 120s. Patient has been told she has a fast heart rate before but does not remember a diagnosis of A Flutter. No mention of A Flutter in cardiology notes. Follows with LIBBY Laguerre in cardiology clinic and Dr. Muñoz in GI clinic. Has been diagnosed with cirrhosis but denies ascites in the past. Has never had a paracentesis. Physical Exam (per Admitting): General Appearance: WD/WN, no apparent distress Head: normocephalic, atraumatic Eyes: normal inspection, PERRL, sclerae normal ENT: normal ENT inspection, hearing grossly normal, pharynx normal (dry mucous membranes ) Neck: supple, thyroid normal, trachea midline Respiratory/Chest: chest non-tender, no respiratory distress, no accessory muscle use, + crackles (at left lung base. otherwise clear ) Cardiovascular: normal peripheral pulses, + tachycardia, + systolic murmur Abdomen/GI: normal bowel sounds, + distended (with mild tenderness. no guarding ) Back: normal inspection Extremities/Musculoskelatal: normal inspection, no calf tenderness, no pedal edema Neurologic/Psych: no motor/sensory deficits, alert, normal mood/affect, oriented x 3 Skin: normal color, warm/dry, + pertinent finding (Healing excoriations on chest and face ) Hospital Course -Feels findings, no complaint of shortness of breath, no palpitation, improved edema from lower extremity Very eager to be discharged home Physical exam General-very pleasant, no apparent distress Eyes- sclera nonicteric, pupils bilateral equal reactive to light, extraocular muscles intact ENT-moist oral mucosa Neck- supple, no jugular venous distention, no carotid bruit, no thyromegaly, trachea midline Lungs-clear to auscultate, no wheeze or rales Heart-regular S1-S2 Abdomen-soft, minimum ascites nontender bowel sounds active Extremities-trace bilateral lower extremity edema Neuro-no focal neurological deficit Psych-alert awake oriented 3, normal mood and affect Lymph nodes-no lymphadenopathy A FLUTTER Presented with atrial flutter with 2: 1 conduction successful Cardioversion on 05/05/18 Remains in sinus with rate controlled On sotalol 80 mg twice daily Appreciate input from cardiology On IV heparin weight-based protocol, Coumadin resumed INR 2.2 today Part cardiology, discharge patient home with oral Coumadin Does not need any bridge therapy Will be followed closely with anticoagulation clinic PROLONGED QTC Possible secondary to electrolyte derangement-low K/Slow-Mag No arrhythmia Oral potassium and mg supplement ordered to keep potassium above 4, mag level 2 ACUTE ON CHRONIC CHF WITH DIASTOLIC DYSFUNCTION/RIGHT HEART FAILURE/VALVULAR HEART DISEASE: Volume status improved after aggressive diuresis Presented with volume overload-increased abdominal girth/ascites lower extremity edema/increased wt gain of 40 lb in 2 weeks ECHO: Normal LV chamber size with moderate concentric LVH. Normal LV systolic function, EF 55-60%. Abnormal septal wall motion abnormality consistent with post-operative state, otherwise, no segmental left ventricular wall motion abnormalities are noted. Grade I diastolic dysfunction. There is a mechanical aortic valve. Doppler evidence of regurgitation is probably normal for this prosthetic aortic valve. The gradient is normal for this prosthetic aortic valve. There is severe mitral annular calcification. Calcified mitral apparatus. Significant mitral regurgitation is absent. There is no mitral valve stenosis. Severe tricuspid regurgitation. Severe left atrial enlargement. Appreciate input from cardiology Patient is discharged home with torsemide 20 mg p.o. in a.m. Aldactone 25 mg p.o. daily lisinopril 2.5 mg daily Lasix discontinued Neurontin discontinued to prevent fluid accumulation VALVULAR HEART DISEASE STATUS POST MECHANICAL AVR -Status post AVR-more than 20 years back ECHO shows: There is a mechanical aortic valve.Doppler evidence of regurgitation is probably normal for this prosthetic aortic valve. The gradient is normal for this prosthetic aortic valve. Severe mitral calcification, without significant MR or MS On Coumadin anticoagulation, goal INR 2.5-3.5 INR 2.2 today Stable to be discharged home with Coumadin [place] CIRRHOSIS/ASCITES History of any NAFLD cirrhosis-follows with [facility] Dr. Muñoz Had recent EGD-with evidence of esophageal varices Presented with worsening of ascites-possible secondary to right heart failure/ valvular heart disease appreciate input from GI Ascites has significantly improved after aggressive diuresis Ultrasound of abdomen shows minimum ascitic fluid, unable to perform diagnostic paracentesis Coumadin resumed Abdominal ascites significantly improved after diuresis Will be discharged home with torsemide/Aldactone TYPE 2 DIABETES Poorly controlled Recent hemoglobin A1c on 03/28/15 was 9.6 On basal Lantus/NovoLog sliding scale adaptive physical educator consulted appreciate input ANEMIA OF CHRONIC DISEASE H&H stable No evidence of bleeding CODE STATUS: Full code DVT PROPHYLAXIS Coumadin DISPOSITION Stable to be discharged home today Cardiology follow-up with Poli Laguerre PA-C Gastroenterology follow-up with Dr. Muñoz Medicine follow-up with Dr. Luis Melo Total time spent on discharge = 40 MINS This includes examination of the patient, discharge planning, medication reconciliation, and communication with other providers. Discharge Instructions Discharge Instructions Date of Service May 12, 2018. Admission Reason for Admission: Atrail Flutter; Volume Overload Discharge Discharge Diagnosis / Problem: A FLUTTER/ACUTE CHF WITH DIASTOLIC DYSFUNCTION/ [place] CIRRHOSIS OF LIVER Discharge Goals Goal(s): Decrease discomfort, Improve function, Increase independence, Improve disease control, Therapeutic intervention Activity Recommendations Activity Limitations: resume your previous activity . Instructions / Follow-Up Instructions / Follow-Up HOSPITAL FOLLOW-UP WITH DR MELO IN A WEEK , OFFICE WILL CALL WITH APPOINTMENT LAB WORK : BASIC METABOLIC PANEL ON NEXT OFFICE VISIT /ORDER IS ALREADY IN CLINIC ASK FOR LAB WORK TO BE DONE WHEN CHECKING IN FOR NEXT APPOINTMENT CARDIOLOGY FOLLOW UP WITH POLI LAGUERRE PA-C/DR FERNANDEZ IN 2 WEEKS , CARDIOLOGY OFFICE WILL CALL WITH APPOINTMENT YOU ARE STARTED ON TWO NEW WATER PILLS ALDACTONE 25 MG DAILY TORSEMIDE 20 MG DAILY DO NOT TAKE LASIX YOU ARE ASKED TO LIMIT TOTAL FLUID INTAKE 1500 ML/DAY Call your Primary Care doctor if any of the following symptoms or problems start or get worse: * Shortness of breath or difficulty breathing * Wake up at night short of breath * Chest pain * Cough * Swelling of your hands, feet, or legs * More fatigued or tired with your normal activity * Palpitations - sudden fast heart beats WEIGHT * Weigh yourself every morning after using the bathroom. * Use the same scale. * Wear the same amount of clothing. * Write your weight down on a chart. * Call your Primary Care doctor if you gain more than 2-3 pounds in 1-2 days. MEDICATIONS * Use this discharge instruction sheet for medication instructions. * Take your medications at the time your doctor ordered. * Do not skip a dose of your medicines. * If you miss a dose of medicine, take it as soon as possible, but DO NOT DOUBLE A DOSE. * Read your medicine information when you get home. * Know all of the side effects of your medicine. If in doubt, ask your pharmacist * Call your Primary Care doctor's office if you have any side effects. * Be sure all of your doctors know what medicine and herbs you take (including cold, flu, and herbal medicine). Take the following with you to your follow-up doctor appointments: * Weight Chart * Medication List * List of questions Do not drink excessive alcohol, beer or wine. Current Hospital Diet Patient's current hospital diet: Diabetes Type 2 Diet, AHA Diet (Heart Healthy) , Low Sodium Diet (2gm Na) Discharge Diet Recommended Diet: Low Sodium Diet (2gm Na), Diabetes Type 2 Diet Fluid Restriction: 1500 ml (6 cups) Procedures Procedures Performed: DC cardioversion Start time: 923 stop time: 930 Pending Studies Studies pending at discharge: no Medical Emergencies . Who to Call and When: Call 911 or go to the Emergency Room if: * If at any time you feel your situation is an emergency * You have tightness or pain in your chest that does not go away with rest or Nitroglycerin * You are very short of breath even with rest . Non-Emergent Contact Non-Emergency issues call your: Primary Care Provider . . "Provider Documentation" section prepared by Yvonne Meyers. . Additional Copies To Sonido Fernandez D.O.
[2018-05-14] MEDS ORDERED: SPIRONOLACTONE 25 MG TAB PO SCH (09:00)
[2018-05-14] MEDS ORDERED: TORSEMIDE 20 MG TAB PO SCH (09:00)
== END 2018-05-13 17:05 | disposition home or self-care (01) | DRG 308 ==
LOC: C.EDB 10:48 → C.2E 15:28 → ENRESERV 15:38
PROVIDERS: ADMIT Hospitalist; ATTEND Hospitalist
DX: I48.92 Unspecified atrial flutter (principal); I50.33 Acute on chronic diastolic (congestive) heart failure; K76.6 Portal hypertension; R18.8 Other ascites; I11.0 Hypertensive heart disease with heart failure; Z82.49 Family history of ischemic heart disease and other diseases of the circulatory system; Z79.82 Long term (current) use of aspirin; Z95.2 Presence of prosthetic heart valve; K74.60 Unspecified cirrhosis of liver; I25.10 Atherosclerotic heart disease of native coronary artery without angina pectoris; E11.9 Type 2 diabetes mellitus without complications; Z88.1 Allergy status to other antibiotic agents; Z88.2 Allergy status to sulfonamides; Z88.8 Allergy status to other drugs, medicaments and biological substances; R19.7 Diarrhea, unspecified; T18.3XXA Foreign body in small intestine, initial encounter; X58.XXXA Exposure to other specified factors, initial encounter; D64.9 Anemia, unspecified; F39 Unspecified mood [affective] disorder; L98.1 Factitial dermatitis; G47.33 Obstructive sleep apnea (adult) (pediatric); J45.909 Unspecified asthma, uncomplicated; E78.5 Hyperlipidemia, unspecified

== ENCOUNTER 2022-05-08 12:20 | Inpatient (IN) ==
[~2022-05-08 12:20] MED LIST changes: -ALBUAER PO; -ASPCH81X PO; -ATOR-26 PO; -BSP/5 PO; -CEPH-571 PO; -CHOL2000 PO; -CRFL PO; -CYCL10TA6 PO; +ETOMIDATE 2 MG/ML 20 ML VIAL IV ONE; -FERRTAB18 PO; -FLUT0.15 NAE; -FLV1 PO; -FRS/40 PO; -GABA-112 PO; -INSDGI SC; -INSU100I SQ; -IPRA-64 INH; -IPRA1AER2 INH; -LSN25 PO; -MCRK/10 PO; -METF1000 PO; -NTRGSL/4 UT; -ONDA4TAB46 PO; -PANT40TA PO; -POTA10CA28 PO; -PROP10TA7 PO; -TRAM-10 PO; -VENL150T33 PO; -WARF4TAB PO; +fentaNYL citrate 100 MCG/2 ML VIAL IV ONE
--- NOTE | 2022-05-08 12:41 | Emergency Department Note ---
Impression & Plan DKA (diabetic ketoacidosis), Wide-complex tachycardia, Sepsis, Pneumonia, Cyst, ovarian ED Provider Note NAME: OZZY CABRAL AGE: 66 SEX: F : 1955 ARRIVES VIA: Walk-In INFORMANT: Patient, ED PROVIDER(S): Can Ellis MD Chief Complaint: Lethargy, feeling unwell HPI: Patient presents due to concern for generally feeling unwell over the last 3 days during which time the patient has not taken any of her medications. The patient does complain of shortness of breath and associated cough but is a non- smoker denies any recent falls or trauma with exception of having difficulty with getting out of bed this morning. The patient denies any head neck or chest pain. Patient denies any abdominal pain nausea vomiting. Patient states that she did not take her medications just because she felt generally unwell. Patient does follow with Poli Laguerre with cardiology. Patient does complain of fatigue and WALLER. ROS: See HPI for pertinent positives and negatives. A total of 10 systems were reviewed and otherwise negative. Past medical history: See below Surgical history: See below Social history: See below Physical Exam: GENERAL: Severely ill in appearance, diaphoretic, wearing a mask. EYE EXAM: Normal conjunctiva. PERRL, no anisocoria and EOM's grossly intact w/o pain. NECK: Supple, no nuchal rigidity, no adenopathy, non-tender. No signs of meningismus. FROM of the neck with good chin to chest and neck extension. No stridor. LUNGS: Diffuse wheezes throughout. Tachypnea noted HEART: Tachycardic and regular, no MRG. ABDOMEN: Abdomen soft, non-tender, normo-active bowel sounds, no masses, no rebound or guarding. BACK: No CVA TTP. SKIN: No rashes and no bruising. UPPER EXTREMITIES: Upper extremities are grossly normal. LOWER EXTREMITIES: Grossly normal, no edema. NEURO EXAM: A&O x3, cranial nerves II-XII grossly intact, normal speech, moves all 4 extremities. Differential diagnoses: Tachycardia, Rreactive airway disease, pneumonia, pneumothorax, COPD, CHF, infections, cardiac ischemia, pulmonary embolism, musculoskeletal, gastrointestinal, as well as other pathologies. Course: Patient was seen and evaluated the bedside. Full history physical exam was performed. Wide-complex tachycardia ventricular rate of 182, wide QRS, left axis deviation, no obvious ST elevations. Imaging Studies: See Below Cardiac monitoring: An order was placed for continuous cardiac monitoring. The monitor shows a rate of 182 with regular rhythm. MDM: Patient was seen due to concern for wide-complex tachycardia and shortness of breath. Blood work was obtained. As replaced on the patient. I did immediately consult with cardiology Dr. Adams. He did review the patient's chart and states that she might have a type of aberrancy secondary to her bundle caity branch block. He recommended a Cardizem bolus and drip which were ordered. Patient's most recent echocardiogram and I will diffuse from August 2021. The patient had a normal ejection fraction of 55 to 59% aortic valve mechanical prosthesis. Patient does have mitral regurg and stenosis with mild tricuspid regurg. No evidence of pulmonary hypertension at that time. Patient's chest film did show concern for congestive changes but do believe this is secondary to likely impaired relaxation due to the patient's significant tachycardia. The patient is also in concomitant DKA. The patient HR is improved after cardizem but likely clinically dehydration, 500 cc bolus ordered and then ordered 250 cc/hr Patient was ordered an insulin drip. I did discuss CODE STATUS with the patient who initially said that she did not want to be put on ventilator but would consider it. I would have concern that if the patient were placed on a ventilator this would first further worsen her acidosis and believe BiPAP to be more reasonable at this time. The patient does have a significant white count of 27. Blood cultures were obtained along with a lactate and empiric antibiotics were ordered. I did order CT of the abdomen pelvis. The patient denies any abdominal pain. Patient is in DKA as well as the patient does have an elevated blood glucose I anion gap as well as lower bicarb. The patient was ordered an insulin drip. I did call pharmacy in order to help facilitate expeditious administration of the insulin. The patient does have an elevated troponin but the patient denies any chest pains. COVID-negative. Patient CT of the abdomen pelvis shows right lower lobe consolidation typical for pneumonia. Patient does have some findings of cirrhosis patient has known history. There is also a noted ovarian cystic structure and this may be followed as an inpatient once the patient is more stabilized. I did speak with the on-call hospitalist Dr. Moody. I also did speak with the on-call flaring machine operator Dr. Badillo. The patient was subsequently admitted to the intensive care unit. Critical Care: I have personally spent 185 minutes of critical care time in direct management of this patient. This includes bedside care, interpretation of diagnostic studies, and testing, discussion with consultants, patient, and family members, and other require inpatient management activities. This 185 minutes is in excess of all separately billable procedures. Past Med/Surg History Medical History Afib 3 YR AGO DX - HX CARDIOVERSION X2 AFIB TRIGGERED BY STRESS/ANXIETY Anemia resolved Anxiety and depression FOLLOWS PSYCHIATRIST Q 3 MON CURRENT CONTROLLED AND STABLE Arthritis Asthma CONTROLLED Cirrhosis of liver Diabetes Diabetic ketoacidosis Family history of reaction to anesthesia MOM - SLOW TO WAKE UP History of blood clots approx 1 year ago > aortic clot per pt, Coumadin and ASA, dissolved per pt History of cardioversion X2 History of colon polyps BENIGN Insomnia Mitral valve prolapse >23 YR AGO, MILD - NO REQUIRED INTERVENTION - FOLLOWS CARDIO POLI LAGUERRE Seasonal allergies Severe sepsis Sleep apnea CPAP - QUIT USING 2-3 YRS AGO D/T NO CLEANING SOLUTION FOR AND WON'T USE D/T CONCERN FOR INFECTION SOB (shortness of breath) on exertion resolved per pt. Surgical History History of cholecystectomy History of colonoscopy History of endoscopy History of hernia surgery X9 History of left cataract extraction History of tonsillectomy Hx of pericardiotomy 30 yrs ago Mechanical heart valve present AORTIC VALVE - >23 YR AGO Family History Other Family history of diabetes mellitus Social History Smoking Status: Never smoker Second Hand Exposure: No; Hx Alcohol Use: No Hx Substance Use: No Preferred Language: Congolese Communication Ability: Effective Group Captain Required: No Beliefs That Will Affect Care: None Current Living Situation: Spouse Feels Safe at Home: Yes Assistive Devices: Denture - Upper and Glasses Allergies Allergies Allergy/AdvReac Type Severity Reaction Status Date / Time ciprofloxacin AdvReac Mild vomitting Verified 05/08/22 15:53 erythromycin base AdvReac Mild vomiting Verified 05/08/22 15:53 gabapentin AdvReac Mild RETAIN Verified 05/08/22 15:53 FLUIDS hydroxyzine AdvReac Mild runny nose Verified 05/08/22 15:53 and eyes water Sulfa (Sulfonamide AdvReac Mild vomitting Verified 05/08/22 15:53 Antibiotics) tetracycline AdvReac Mild vomitting Verified 05/08/22 15:53 Home Meds Home Medications Medication Instructions Recorded Confirmed albuterol sulfate 90 mcg/actuation 2 puff inhalation Q4 PRN Shortness 01/01/19 05/08/22 aerosol inhaler (Proventil HFA) Of Breath Or Wheezing atorvastatin 80 mg tablet 80 mg PO HS 01/01/19 05/08/22 cholecalciferol (vitamin D3) 50 2,000 unit PO DAILY 01/01/19 05/08/22 mcg (2,000 unit) capsule (Vitamin D3) folic acid 1 mg tablet 2 mg PO DAILY 01/01/19 05/08/22 insulin glargine 100 unit/mL 60 unit subcut QAM 01/01/19 05/08/22 subcutaneous solution (Lantus U-100 Insulin) lisinopril 2.5 mg tablet 2.5 mg PO QAM 01/01/19 05/08/22 metformin 500 mg tablet 500 mg PO BIDM 01/01/19 05/08/22 nitroglycerin 0.4 mg sublingual 0.4 mg sublingual DIRECTED PRN 01/01/19 05/08/22 tablet (Nitrostat) Chest Pain pantoprazole 40 mg tablet,delayed 40 mg PO BID 01/01/19 05/08/22 release (Protonix) potassium chloride 10 mEq 20 meq PO BID 01/01/19 05/08/22 capsule,extended release sotalol 80 mg tablet 80 mg PO BID 01/01/19 05/08/22 spironolactone 25 mg tablet 50 mg PO QAM 01/01/19 05/08/22 torsemide 20 mg tablet 20 mg PO BID 01/01/19 05/08/22 venlafaxine 150 mg 150 mg PO QAM 01/01/19 05/08/22 capsule,extended release 24 hr (Effexor XR) aspirin 81 mg tablet,delayed 81 mg PO DAILY 01/29/22 05/08/22 release buspirone 10 mg tablet 10 mg PO BID 05/08/22 05/08/22 diclofenac sodium 1 % topical gel 2 g topical BID 05/08/22 05/08/22 ezetimibe 10 mg tablet 10 mg PO DAILY 05/08/22 05/08/22 insulin lispro 100 unit/mL 50 unit subcut TID 05/08/22 05/08/22 subcutaneous solution (Humalog U-100 Insulin) ondansetron HCl 4 mg tablet 4 mg PO Q6 PRN Nausea 05/08/22 05/08/22 risperidone 0.5 mg tablet 0.5 mg PO HS 05/08/22 05/08/22 warfarin 4 mg tablet See Rx Instructions .Route .COMPLEX 05/08/22 05/08/22 Results & Data (ED) Vital Signs Vital Signs - 24 hr 05/08/22 12:29 05/08/22 12:54 05/08/22 12:55 Temperature 36.6 C Temperature Source Temporal Artery Scan Pulse Rate 112 H 185 H Pulse Rate [Apical] Pulse Rate from SpO2 Sensor Pulse Rhythm Regular Pulse Rhythm [Apical] Pulse Strength [Apical] Respiratory Rate 22 20 Respiratory Effort / Characteristics Non-Labored Respiratory Depth Respiratory Pattern Blood Pressure 127/90 Blood Pressure [Right Arm] Blood Pressure Mean 102 Blood Pressure Mean [Right Arm] Blood Pressure Position [Right Arm] Pulse Oximetry 97 91 91 Oxygen Delivery Method Room Air Room Air Room Air Fraction of Inspired Oxygen SaO2/FiO2 Ratio Sepsis Recent Fever Within 48 Hours No Sepsis New/Unexplained Change in Mental Status N/A Sepsis Action Taken by Nursing No Action Required 05/08/22 12:55 05/08/22 13:05 05/08/22 12:52 Temperature Temperature Source Pulse Rate 191 H 185 H Pulse Rate [Apical] 185 H Pulse Rate from SpO2 Sensor 186 H Pulse Rhythm Pulse Rhythm [Apical] Regular Pulse Strength [Apical] Respiratory Rate 20 38 H 39 H Respiratory Effort / Characteristics Non-Labored Spontaneous Short of Breath Respiratory Depth Normal Respiratory Pattern Rapid/Deep Blood Pressure Blood Pressure [Right Arm] 117/84 Blood Pressure Mean Blood Pressure Mean [Right Arm] 95 Blood Pressure Position [Right Arm] Pulse Oximetry 91 96 93 Oxygen Delivery Method Room Air Fraction of Inspired Oxygen 30 SaO2/FiO2 Ratio Sepsis Recent Fever Within 48 Hours Sepsis New/Unexplained Change in Mental Status Sepsis Action Taken by Nursing 05/08/22 13:00 05/08/22 13:10 05/08/22 13:16 Temperature Temperature Source Pulse Rate 189 H 192 H 193 H Pulse Rate [Apical] Pulse Rate from SpO2 Sensor 188 H 192 H 190 H Pulse Rhythm Pulse Rhythm [Apical] Pulse Strength [Apical] Respiratory Rate 37 H 41 H 29 H Respiratory Effort / Characteristics Respiratory Depth Respiratory Pattern Blood Pressure Blood Pressure [Right Arm] Blood Pressure Mean Blood Pressure Mean [Right Arm] Blood Pressure Position [Right Arm] Pulse Oximetry 96 96 95 Oxygen Delivery Method Fraction of Inspired Oxygen SaO2/FiO2 Ratio Sepsis Recent Fever Within 48 Hours Sepsis New/Unexplained Change in Mental Status Sepsis Action Taken by Nursing 05/08/22 13:16 05/08/22 13:20 05/08/22 13:41 Temperature Temperature Source Pulse Rate 111 H Pulse Rate [Apical] 123 H Pulse Rate from SpO2 Sensor 107 H Pulse Rhythm Pulse Rhythm [Apical] Irregular Pulse Strength [Apical] Respiratory Rate 39 H 40 H Respiratory Effort / Characteristics Respiratory Depth Respiratory Pattern Blood Pressure 122/90 Blood Pressure [Right Arm] 118/73 Blood Pressure Mean 100 Blood Pressure Mean [Right Arm] 88 Blood Pressure Position [Right Arm] Pulse Oximetry 95 96 Oxygen Delivery Method BiPAP Fraction of Inspired Oxygen SaO2/FiO2 Ratio Sepsis Recent Fever Within 48 Hours Sepsis New/Unexplained Change in Mental Status Sepsis Action Taken by Nursing 05/08/22 15:00 05/08/22 15:27 05/08/22 15:30 Temperature Temperature Source Pulse Rate 42 L Pulse Rate [Apical] 127 H 128 H Pulse Rate from SpO2 Sensor Pulse Rhythm Pulse Rhythm [Apical] Regular Regular Pulse Strength [Apical] Normal Normal Respiratory Rate 18 42 H 39 H Respiratory Effort / Characteristics Non-Labored Spontaneous Spontaneous Accessory Muscle Use Respiratory Depth Normal Shallow Respiratory Pattern Regular Rapid/Shallow Blood Pressure Blood Pressure [Right Arm] 107/62 108/62 Blood Pressure Mean Blood Pressure Mean [Right Arm] 77 77 Blood Pressure Position [Right Arm] Lying Lying Pulse Oximetry 97 94 96 Oxygen Delivery Method BiPAP BiPAP Fraction of Inspired Oxygen 30 30 30 SaO2/FiO2 Ratio 323 320 Sepsis Recent Fever Within 48 Hours Sepsis New/Unexplained Change in Mental Status Sepsis Action Taken by Nursing 05/08/22 15:45 05/08/22 16:00 05/08/22 16:15 Temperature Temperature Source Pulse Rate Pulse Rate [Apical] 126 H 124 H 132 H Pulse Rate from SpO2 Sensor Pulse Rhythm Pulse Rhythm [Apical] Regular Regular Regular Pulse Strength [Apical] Normal Normal Normal Respiratory Rate 30 H 36 H 33 H Respiratory Effort / Characteristics Spontaneous Accessory Muscle Use Spontaneous Accessory Muscle Use Spontaneous Accessory Muscle Use Respiratory Depth Shallow Shallow Respiratory Pattern Regular Tachypnea Regular Tachypnea Blood Pressure Blood Pressure [Right Arm] 102/62 82/59 L 93/61 L Blood Pressure Mean Blood Pressure Mean [Right Arm] 75 66 71 Blood Pressure Position [Right Arm] Lying Lying Lying Pulse Oximetry 97 100 99 Oxygen Delivery Method BiPAP BiPAP BiPAP Fraction of Inspired Oxygen 30 30 30 SaO2/FiO2 Ratio 323 333 330 Sepsis Recent Fever Within 48 Hours Sepsis New/Unexplained Change in Mental Status Sepsis Action Taken by Nursing 05/08/22 16:30 05/08/22 16:30 05/08/22 16:40 Temperature Temperature Source Pulse Rate 126 H 134 H Pulse Rate [Apical] Pulse Rate from SpO2 Sensor 123 H 129 H Pulse Rhythm Pulse Rhythm [Apical] Pulse Strength [Apical] Respiratory Rate 35 H 34 H Respiratory Effort / Characteristics Respiratory Depth Respiratory Pattern Blood Pressure 121/60 Blood Pressure [Right Arm] Blood Pressure Mean 80 Blood Pressure Mean [Right Arm] Blood Pressure Position [Right Arm] Pulse Oximetry 99 98 Oxygen Delivery Method BiPAP Fraction of Inspired Oxygen 30 SaO2/FiO2 Ratio Sepsis Recent Fever Within 48 Hours Sepsis New/Unexplained Change in Mental Status Sepsis Action Taken by Nursing 05/08/22 16:45 05/08/22 16:45 05/08/22 16:50 Temperature Temperature Source Pulse Rate 125 H Pulse Rate [Apical] Pulse Rate from SpO2 Sensor 123 H 130 H Pulse Rhythm Pulse Rhythm [Apical] Pulse Strength [Apical] Respiratory Rate 28 H 37 H Respiratory Effort / Characteristics Respiratory Depth Respiratory Pattern Blood Pressure 108/59 L Blood Pressure [Right Arm] Blood Pressure Mean 75 Blood Pressure Mean [Right Arm] Blood Pressure Position [Right Arm] Pulse Oximetry 99 98 Oxygen Delivery Method Fraction of Inspired Oxygen SaO2/FiO2 Ratio Sepsis Recent Fever Within 48 Hours Sepsis New/Unexplained Change in Mental Status Sepsis Action Taken by Nursing 05/08/22 17:00 05/08/22 17:00 05/08/22 17:10 Temperature Temperature Source Pulse Rate 118 H Pulse Rate [Apical] Pulse Rate from SpO2 Sensor 126 H 119 H Pulse Rhythm Pulse Rhythm [Apical] Pulse Strength [Apical] Respiratory Rate 32 H 36 H Respiratory Effort / Characteristics Respiratory Depth Respiratory Pattern Blood Pressure 111/85 Blood Pressure [Right Arm] Blood Pressure Mean 93 Blood Pressure Mean [Right Arm] Blood Pressure Position [Right Arm] Pulse Oximetry 97 97 Oxygen Delivery Method Fraction of Inspired Oxygen SaO2/FiO2 Ratio Sepsis Recent Fever Within 48 Hours Sepsis New/Unexplained Change in Mental Status Sepsis Action Taken by [facility] Medications Current Medication List: was personally reviewed by me Laboratory Data Attestation: I reviewed the patient's lab results. Result diagrams: 05/08/22 12:50 05/08/22 15:37 Lab Results 05/08/22 05/08/22 05/08/22 Range/Units 12:50 12:50 12:50 WBC 27.61 H (4.8-10.8) K/ul RBC 4.25 (3.93-5.22) M/uL Hgb 12.3 (12.0-16.0) g/dl POC Hgb (12.0-16.0) g/dl Hct 37.8 (34.1-44.9) % POC Hct (37-47) % MCV 88.9 (80.0-100.0) fL MCH 28.9 (25.0-34.0) pg MCHC 32.5 (32.0-36.0) g/dL RDW Std Deviation 50.9 H (36.4-46.3) fL RDW Coeff of Tere 15.7 H (11.5-14.5) % Plt Count 193 (130-400) K/uL MPV 11.4 (9.4-12.3) fL Neutrophils % (Manual) 85 % Lymphocytes % (Manual) 3 % Monocytes % (Manual) 7 % Metamyelocytes % (Man) 4 % Myelocytes % (Man) 1 % Neutrophils # (Manual) 23.47 H (1.4-6.5) K/uL Total Absolute Neuts 23.47 H (1.4-6.5) K/uL Lymphocytes # (Manual) 0.83 L (1.2-3.4) K/uL Total Abs Lymphocytes 0.83 L (1.2-3.4) K/uL Monocytes # (Manual) 1.93 H (0.24-0.82) K/uL Metamyelocytes # (Man) 1.10 H (0-0) K/uL Myelocytes # (Manual) 0.28 H (0-0) K/uL PT 37.3 H (9.0-12.0) Seconds INR 3.8 H (0.9-1.1) APTT 44.8 H (21.0-31.0) Seconds PTT Ratio 1.6 VBG pH (7.36-7.41) VBG pCO2 (38-50) mmHg VBG pO2 mmHg VBG HCO3 mmol/L VBG O2 Saturation % VBG Base Excess mEq/L POC Sodium (135-144) mmol/L Sodium 127 L (136-145) mmol/L POC Potassium (3.3-5.0) mmol/L Potassium 4.6 (3.5-5.1) mmol/L POC Chloride (101-112) mmol/L Chloride 93 L (98-107) mmol/L Carbon Dioxide 13 L (21-32) mmol/L POC Total CO2 (24-31) mmol/L Anion Gap 21 H (3-11) POC Anion Gap (16-25) mmol/L POC BUN (7-18) mg/dl BUN 34 H (6-23) mg/dl Creatinine 1.82 H (0.6-1.2) mg/dl POC Creatinine (0.6-1.3) mg/dl Est Cr Clr Drug Dosing 28.6 ml/min Est GFR ( Amer) 32.5 ml/min Est GFR (Non-Af Amer) 28.0 ml/min BUN/Creatinine Ratio 18.7 (10-20) Glucose 417 H* (70-99(Fasting)) mg/dl POC Glucose (70-99) mg/dl POC Glucose (other) (70-99) mg/dl Lactate (0.4-2.0) mmol/L Calcium 9.3 (8.5-10.1) mg/dl POC Ioniz Calcium Eladio (1.12-1.32) mmol/l Phosphorus 4.7 (2.5-4.9) mg/dl Magnesium 1.7 (1.7-2.4) mg/dl Total Bilirubin 2.2 H (0.2-1.0) mg/dl AST 35 (13-39) U/L ALT 28 (7-52) U/L Alkaline Phosphatase 73 (34-104) U/L Total Creatine Kinase 355 H (26-192) U/L Troponin I High Sens 226.4 H* (0-14) pg/ml Total Protein 7.8 (6.0-8.3) gm/dl Albumin 3.7 (3.4-5.0) gm/dl Globulin 4.1 H (2.5-4.0) gm/dl Albumin/Globulin Ratio 0.9 (0.9-2) TSH (0.300-4.500) uIu/ml SARS-CoV-2, RNA, NAAT (NEGATIVE) 05/08/22 05/08/22 05/08/22 Range/Units 12:50 12:51 12:52 WBC (4.8-10.8) K/ul RBC (3.93-5.22) M/uL Hgb (12.0-16.0) g/dl POC Hgb 13.6 (12.0-16.0) g/dl Hct (34.1-44.9) % POC Hct 40 (37-47) % MCV (80.0-100.0) fL MCH (25.0-34.0) pg MCHC (32.0-36.0) g/dL RDW Std Deviation (36.4-46.3) fL RDW Coeff of Tere (11.5-14.5) % Plt Count (130-400) K/uL MPV (9.4-12.3) fL Neutrophils % (Manual) % Lymphocytes % (Manual) % Monocytes % (Manual) % Metamyelocytes % (Man) % Myelocytes % (Man) % Neutrophils # (Manual) (1.4-6.5) K/uL Total Absolute Neuts (1.4-6.5) K/uL Lymphocytes # (Manual) (1.2-3.4) K/uL Total Abs Lymphocytes (1.2-3.4) K/uL Monocytes # (Manual) (0.24-0.82) K/uL Metamyelocytes # (Man) (0-0) K/uL Myelocytes # (Manual) (0-0) K/uL PT (9.0-12.0) Seconds INR (0.9-1.1) APTT (21.0-31.0) Seconds PTT Ratio VBG pH 7.29 L (7.36-7.41) VBG pCO2 28 L (38-50) mmHg VBG pO2 73 mmHg VBG HCO3 14 mmol/L VBG O2 Saturation 95.1 % VBG Base Excess -11.6 mEq/L POC Sodium 128 L (135-144) mmol/L Sodium (136-145) mmol/L POC Potassium 4.7 (3.3-5.0) mmol/L Potassium (3.5-5.1) mmol/L POC Chloride 97 L (101-112) mmol/L Chloride (98-107) mmol/L Carbon Dioxide (21-32) mmol/L POC Total CO2 15 L (24-31) mmol/L Anion Gap (3-11) POC Anion Gap 23.0 (16-25) mmol/L POC BUN 33 H (7-18) mg/dl BUN (6-23) mg/dl Creatinine (0.6-1.2) mg/dl POC Creatinine 1.9 H (0.6-1.3) mg/dl Est Cr Clr Drug Dosing ml/min Est GFR ( Amer) ml/min Est GFR (Non-Af Amer) ml/min BUN/Creatinine Ratio (10-20) Glucose (70-99(Fasting)) mg/dl POC Glucose (70-99) mg/dl POC Glucose (other) 422 H* (70-99) mg/dl Lactate (0.4-2.0) mmol/L Calcium (8.5-10.1) mg/dl POC Ioniz Calcium Eladio 1.13 (1.12-1.32) mmol/l Phosphorus (2.5-4.9) mg/dl Magnesium (1.7-2.4) mg/dl Total Bilirubin (0.2-1.0) mg/dl AST (13-39) U/L ALT (7-52) U/L Alkaline Phosphatase (34-104) U/L Total Creatine Kinase (26-192) U/L Troponin I High Sens (0-14) pg/ml Total Protein (6.0-8.3) gm/dl Albumin (3.4-5.0) gm/dl Globulin (2.5-4.0) gm/dl Albumin/Globulin Ratio (0.9-2) TSH 1.129 (0.300-4.500) uIu/ml SARS-CoV-2, RNA, NAAT (NEGATIVE) 05/08/22 05/08/22 05/08/22 Range/Units 12:53 14:05 14:07 WBC (4.8-10.8) K/ul RBC (3.93-5.22) M/uL Hgb (12.0-16.0) g/dl POC Hgb (12.0-16.0) g/dl Hct (34.1-44.9) % POC Hct (37-47) % MCV (80.0-100.0) fL MCH (25.0-34.0) pg MCHC (32.0-36.0) g/dL RDW Std Deviation (36.4-46.3) fL RDW Coeff of Tere (11.5-14.5) % Plt Count (130-400) K/uL MPV (9.4-12.3) fL Neutrophils % (Manual) % Lymphocytes % (Manual) % Monocytes % (Manual) % Metamyelocytes % (Man) % Myelocytes % (Man) % Neutrophils # (Manual) (1.4-6.5) K/uL Total Absolute Neuts (1.4-6.5) K/uL Lymphocytes # (Manual) (1.2-3.4) K/uL Total Abs Lymphocytes (1.2-3.4) K/uL Monocytes # (Manual) (0.24-0.82) K/uL Metamyelocytes # (Man) (0-0) K/uL Myelocytes # (Manual) (0-0) K/uL PT (9.0-12.0) Seconds INR (0.9-1.1) APTT (21.0-31.0) Seconds PTT Ratio VBG pH (7.36-7.41) VBG pCO2 (38-50) mmHg VBG pO2 mmHg VBG HCO3 mmol/L VBG O2 Saturation % VBG Base Excess mEq/L POC Sodium (135-144) mmol/L Sodium (136-145) mmol/L POC Potassium (3.3-5.0) mmol/L Potassium (3.5-5.1) mmol/L POC Chloride (101-112) mmol/L Chloride (98-107) mmol/L Carbon Dioxide (21-32) mmol/L POC Total CO2 (24-31) mmol/L Anion Gap (3-11) POC Anion Gap (16-25) mmol/L POC BUN (7-18) mg/dl BUN (6-23) mg/dl Creatinine (0.6-1.2) mg/dl POC Creatinine (0.6-1.3) mg/dl Est Cr Clr Drug Dosing ml/min Est GFR ( Amer) ml/min Est GFR (Non-Af Amer) ml/min BUN/Creatinine Ratio (10-20) Glucose (70-99(Fasting)) mg/dl POC Glucose 411 H* (70-99) mg/dl POC Glucose (other) (70-99) mg/dl Lactate 7.3 H* (0.4-2.0) mmol/L Calcium (8.5-10.1) mg/dl POC Ioniz Calcium Eladio (1.12-1.32) mmol/l Phosphorus (2.5-4.9) mg/dl Magnesium (1.7-2.4) mg/dl Total Bilirubin (0.2-1.0) mg/dl AST (13-39) U/L ALT (7-52) U/L Alkaline Phosphatase (34-104) U/L Total Creatine Kinase (26-192) U/L Troponin I High Sens (0-14) pg/ml Total Protein (6.0-8.3) gm/dl Albumin (3.4-5.0) gm/dl Globulin (2.5-4.0) gm/dl Albumin/Globulin Ratio (0.9-2) TSH (0.300-4.500) uIu/ml SARS-CoV-2, RNA, NAAT NEGATIVE (NEGATIVE) 05/08/22 05/08/22 05/08/22 Range/Units 15:37 15:37 15:58 WBC (4.8-10.8) K/ul RBC (3.93-5.22) M/uL Hgb (12.0-16.0) g/dl POC Hgb (12.0-16.0) g/dl Hct (34.1-44.9) % POC Hct (37-47) % MCV (80.0-100.0) fL MCH (25.0-34.0) pg MCHC (32.0-36.0) g/dL RDW Std Deviation (36.4-46.3) fL RDW Coeff of Tere (11.5-14.5) % Plt Count (130-400) K/uL MPV (9.4-12.3) fL Neutrophils % (Manual) % Lymphocytes % (Manual) % Monocytes % (Manual) % Metamyelocytes % (Man) % Myelocytes % (Man) % Neutrophils # (Manual) (1.4-6.5) K/uL Total Absolute Neuts (1.4-6.5) K/uL Lymphocytes # (Manual) (1.2-3.4) K/uL Total Abs Lymphocytes (1.2-3.4) K/uL Monocytes # (Manual) (0.24-0.82) K/uL Metamyelocytes # (Man) (0-0) K/uL Myelocytes # (Manual) (0-0) K/uL PT (9.0-12.0) Seconds INR (0.9-1.1) APTT (21.0-31.0) Seconds PTT Ratio VBG pH 7.20 L (7.36-7.41) VBG pCO2 (38-50) mmHg VBG pO2 mmHg VBG HCO3 mmol/L VBG O2 Saturation % VBG Base Excess mEq/L POC Sodium (135-144) mmol/L Sodium 127 L (136-145) mmol/L POC Potassium (3.3-5.0) mmol/L Potassium 4.1 (3.5-5.1) mmol/L POC Chloride (101-112) mmol/L Chloride 93 L (98-107) mmol/L Carbon Dioxide 17 L (21-32) mmol/L POC Total CO2 (24-31) mmol/L Anion Gap 17 H (3-11) POC Anion Gap (16-25) mmol/L POC BUN (7-18) mg/dl BUN 36 H (6-23) mg/dl Creatinine 1.88 H (0.6-1.2) mg/dl POC Creatinine (0.6-1.3) mg/dl Est Cr Clr Drug Dosing 27.7 ml/min Est GFR ( Amer) 31.3 ml/min Est GFR (Non-Af Amer) 27.0 ml/min BUN/Creatinine Ratio 19.1 (10-20) Glucose 382 H* (70-99(Fasting)) mg/dl POC Glucose 355 H* (70-99) mg/dl POC Glucose (other) (70-99) mg/dl Lactate (0.4-2.0) mmol/L Calcium 8.7 (8.5-10.1) mg/dl POC Ioniz Calcium Eladio (1.12-1.32) mmol/l Phosphorus 4.1 (2.5-4.9) mg/dl Magnesium 1.6 L (1.7-2.4) mg/dl Total Bilirubin (0.2-1.0) mg/dl AST (13-39) U/L ALT (7-52) U/L Alkaline Phosphatase (34-104) U/L Total Creatine Kinase (26-192) U/L Troponin I High Sens (0-14) pg/ml Total Protein (6.0-8.3) gm/dl Albumin (3.4-5.0) gm/dl Globulin (2.5-4.0) gm/dl Albumin/Globulin Ratio (0.9-2) TSH (0.300-4.500) uIu/ml SARS-CoV-2, RNA, NAAT (NEGATIVE) 05/08/22 Range/Units 17:08 WBC (4.8-10.8) K/ul RBC (3.93-5.22) M/uL Hgb (12.0-16.0) g/dl POC Hgb (12.0-16.0) g/dl Hct (34.1-44.9) % POC Hct (37-47) % MCV (80.0-100.0) fL MCH (25.0-34.0) pg MCHC (32.0-36.0) g/dL RDW Std Deviation (36.4-46.3) fL RDW Coeff of Tere (11.5-14.5) % Plt Count (130-400) K/uL MPV (9.4-12.3) fL Neutrophils % (Manual) % Lymphocytes % (Manual) % Monocytes % (Manual) % Metamyelocytes % (Man) % Myelocytes % (Man) % Neutrophils # (Manual) (1.4-6.5) K/uL Total Absolute Neuts (1.4-6.5) K/uL Lymphocytes # (Manual) (1.2-3.4) K/uL Total Abs Lymphocytes (1.2-3.4) K/uL Monocytes # (Manual) (0.24-0.82) K/uL Metamyelocytes # (Man) (0-0) K/uL Myelocytes # (Manual) (0-0) K/uL PT (9.0-12.0) Seconds INR (0.9-1.1) APTT (21.0-31.0) Seconds PTT Ratio VBG pH (7.36-7.41) VBG pCO2 (38-50) mmHg VBG pO2 mmHg VBG HCO3 mmol/L VBG O2 Saturation % VBG Base Excess mEq/L POC Sodium (135-144) mmol/L Sodium (136-145) mmol/L POC Potassium (3.3-5.0) mmol/L Potassium (3.5-5.1) mmol/L POC Chloride (101-112) mmol/L Chloride (98-107) mmol/L Carbon Dioxide (21-32) mmol/L POC Total CO2 (24-31) mmol/L Anion Gap (3-11) POC Anion Gap (16-25) mmol/L POC BUN (7-18) mg/dl BUN (6-23) mg/dl Creatinine (0.6-1.2) mg/dl POC Creatinine (0.6-1.3) mg/dl Est Cr Clr Drug Dosing ml/min Est GFR ( Amer) ml/min Est GFR (Non-Af Amer) ml/min BUN/Creatinine Ratio (10-20) Glucose (70-99(Fasting)) mg/dl POC Glucose 327 H* (70-99) mg/dl POC Glucose (other) (70-99) mg/dl Lactate (0.4-2.0) mmol/L Calcium (8.5-10.1) mg/dl POC Ioniz Calcium Eladio (1.12-1.32) mmol/l Phosphorus (2.5-4.9) mg/dl Magnesium (1.7-2.4) mg/dl Total Bilirubin (0.2-1.0) mg/dl AST (13-39) U/L ALT (7-52) U/L Alkaline Phosphatase (34-104) U/L Total Creatine Kinase (26-192) U/L Troponin I High Sens (0-14) pg/ml Total Protein (6.0-8.3) gm/dl Albumin (3.4-5.0) gm/dl Globulin (2.5-4.0) gm/dl Albumin/Globulin Ratio (0.9-2) TSH (0.300-4.500) uIu/ml SARS-CoV-2, RNA, NAAT (NEGATIVE) Administered Medications Diltiazem HCl 125 mg/ Dextrose 125 mls @ 5 mls/hr IV .Q24H CUATE; Protocol Stop: 06/07/22 13:14 Last Titration: 05/08/22 16:20 Dose: 7.5 mg/hr, 7.5 mls/hr Documented By: ELMER Co-signed By: SHANELL Titration: 05/08/22 15:54 Dose: 10 mg/hr, 10 mls/hr Documented By: LEMER Co-signed By: SHANELL Titration: 05/08/22 15:30 Dose: 7.5 mg/hr, 7.5 mls/hr Documented By: ELMER Co-signed By: LYDIA Admin: 05/08/22 13:37 Dose: 5 mg/hr, 5 mls/hr Documented By: JOSÉ MIGUEL Co-signed By: KATHRYN Insulin Human Regular 250 (units/ Sodium Chloride) 250 mls @ 8.5 mls/hr IV .Q24H CUATE; Protocol Stop: 06/07/22 13:44 Last Admin: 05/08/22 14:49 Dose: 8.5 units/hr, 8.5 mls/hr Documented By: JOSÉ MIGUEL Co-signed By: ELMER Parenteral Electrolytes (Normosol-R) 1,000 mls @ 250 mls/hr IV .Q4H CUATE Stop: 06/07/22 13:44 Last Admin: 05/08/22 17:13 Dose: 250 mls/hr Documented By: ELMER Insulin Aspart (Insulin Aspart Per Unit) 0 units SC ACHS CUATE Stop: 06/07/22 16:29 Last Admin: 05/08/22 16:35 Dose: Not Given Documented By: ELMER Co-signed By: KATHRYN Discontinued Medications Diltiazem HCl (Diltiazem Hcl 5 Mg/Ml 5 Ml Vial) 20 mg IV NOW STA Stop: 05/08/22 13:06 Last Admin: 05/08/22 13:17 Dose: 20 mg Documented By: OSWALDO Co-signed By: JOSÉ MIGUEL Etomidate (Etomidate 2 Mg/Ml 20 Ml Vial) Confirm Administered Dose 40 mg IV .STK-MED ONE Stop: 05/08/22 12:57 Last Admin: 05/08/22 13:40 Dose: Not Given Documented By: JOSÉ MIGUEL Piperacillin Sod/Tazobactam Sod (Zosyn) 4.5 gm in 120 mls @ 240 mls/hr IV NOW ONE Stop: 05/08/22 14:08 Last Admin: 05/08/22 16:24 Dose: 240 mls/hr Documented By: ELMER Sodium Chloride (Nss 1000ml) 500 mls @ 999 mls/hr IV .Q31M ONE Stop: 05/08/22 14:16 Last Infusion: 05/08/22 14:17 Dose: 0 mls/hr Documented By: JOSÉ MIGUEL Admin: 05/08/22 13:50 Dose: 999 mls/hr Documented By: JOSÉ MIGUEL Vancomycin HCl 1,750 mg/ (Sodium Chloride) 535 mls @ 200 mls/hr IV NOW ONE Stop: 05/08/22 16:27 Last Admin: 05/08/22 15:40 Dose: 200 mls/hr Documented By: ELMER Sodium Chloride (Nss 1000ml) 500 mls @ 999 mls/hr IV .Q31M ONE Stop: 05/08/22 15:39 Last Infusion: 05/08/22 16:41 Dose: 0 mls/hr Documented By: Admin: 05/08/22 15:40 Dose: 999 mls/hr Documented By: ELMER Miscellaneous (Stat Iv Infusion Titration Per Protocol) 1 each N/A NOW STA Stop: 05/08/22 13:06 Last Admin: 05/08/22 13:39 Dose: 1 each Documented By: JOSÉ MIGUEL Piperacillin Sod/Tazobactam Sod (Piperacillin/Tazobactam 4.5 Gm/120ml D5w) Confirm Administered Dose 4.5 gm IV .STK-MED ONE Stop: 05/08/22 16:20 Last Admin: 05/08/22 16:29 Dose: Not Given Documented By: AP Imaging Data Radiologist's Impression: Chest X-Ray 05/08/22 12:47 SINGLE VIEW CHEST CLINICAL HISTORY: Generalized weakness. FINDINGS: An AP, portable, upright chest radiograph is compared to study dated 01/01/2019. The the patient is status post midline sternotomy and cardiac valve surgery. The heart is enlarged. There is pulmonary vascular congestion with evidence of interstitial edema. Small pleural effusions are suspected with bibasilar consolidation. No pneumothorax is seen. The skeletal structures are osteopenic. The bony thorax is grossly intact. Calcific tendinopathy is noted in the left shoulder. IMPRESSION: 1. Cardiomegaly with congestive failure and pulmonary edema. 2. Suspect small pleural effusions. ACT 112: Negative or not required by law. Electronically signed by: Oscar Sharif M.D. 05/08/2022 1:39 PM Abdomen/Pelvis CT 05/08/22 13:47 CT SCAN OF THE ABDOMEN AND PELVIS WITHOUT IV CONTRAST CLINICAL HISTORY: Leukocytosis. COMPARISON STUDY: Abdominal CT dated 05/03/2018. TECHNIQUE: CT scan of the abdomen and pelvis is performed from the lung bases to the proximal femora. Images are reviewed in the axial, sagittal, and coronal planes. IV contrast was not administered for this examination. Note that the examination was performed in significantly suboptimal fashion without oral and IV contrast. A dose lowering technique was utilized adhering to the principles of ALARA. CT DOSE: 990.36 mGy.cm FINDINGS: Lung bases: The heart is enlarged and without pericardial effusion. The coronary arteries and mitral annulus are densely calcified. Diminished attenuation of the cardiac blood pool as compared to the myocardium suggests anemia. There is a small hiatal hernia. There is dense airspace consolidation in the right lower lobe. The left lung base is clear. No pleural effusion is identified. Liver: The unenhanced liver is cirrhotic in morphology and heterogeneous in attenuation. There is hypertrophy of the left lobe and nodularity of the hepatic surface contour. There is no intrahepatic biliary ductal dilatation. Gallbladder: Surgically absent noting clips in the gallbladder fossa. Spleen: The spleen is enlarged, measuring 14.3 cm in length. Pancreas: The unenhanced pancreas is moderately atrophic and grossly unremarkable. Adrenal glands: Unremarkable. Kidneys: The unenhanced kidneys are normal in size and without hydronephrosis. There are no renal calculi identified. There is no evidence of contour deforming renal mass lesion. Abdominal vasculature: The abdominal aorta is normal in course and caliber noting moderate atherosclerotic calcification. Bowel: There is mild colonic diverticulosis without CT evidence of acute diverticulitis. No bowel obstruction is identified. The appendix is well- visualized and normal. Peritoneum: There is trace perihepatic ascites. No intraperitoneal free air is identified. A fat-containing ventral hernia is seen in the right upper quadrant on image #157. There is evidence of previous ventral hernia repair in the pelvis. Lymphadenopathy: None. Pelvic viscera: The bladder wall appears circumferentially thickened. The uterus is normal as visualized. There is a 6.7 cm simple cystic lesion identified in the right adnexa seen on image #[id number]. Trace free fluid is seen in the pelvis. Skeletal structures: The skeletal structures are osteopenic. Mild lumbosacral spondylosis is observed. No lytic or blastic lesions are seen. IMPRESSION: 1. There is dense right lower lobe consolidation typical for pneumonia. Clinical correlation will be required and radiographic follow-up to resolution is recommended. 2. The liver is cirrhotic in morphology and heterogeneous in attenuation. 3. Splenomegaly and trace abdominopelvic ascites indicate portal hypertension. 4. There is a 6.7 cm simple cystic lesion in the right adnexa, likely related to the right ovary. This has significantly increased in size dating back to 2018. Nonemergent pelvic ultrasound and gynecology follow-up is recommended. 5. Additional findings as above. ACT 112: Negative or not required by law. Electronically signed by: Oscar Sharif M.D. 05/08/2022 3:28 PM Discharge Plan Visit Data Chief Complaint: Lethargic Stated Complaint: LETHARGIC, FELL OUT OF BED, STIFF/SORE ED Provider: Can Ellis Discharge Problem: DKA (diabetic ketoacidosis), Wide-complex tachycardia, Sepsis, Pneumonia, Cyst, ovarian Patient Disposition: Admitted As Inpatient Forms Stand Alone Forms: My [facility] [address] Prescriptions Prescriptions: No Action metformin 500 mg Tablet 500 mg PO BIDM atorvastatin 80 mg Tablet 80 mg PO HS potassium chloride 10 mEq Capsule, Extended Release 20 meq PO BID insulin glargine [Lantus U-100 Insulin] 100 unit/mL Solution 60 unit SUBCUT QAM torsemide 20 mg Tablet 20 mg PO BID sotalol 80 mg Tablet 80 mg PO BID venlafaxine [Effexor XR] 150 mg Capsule,Extended Release 24hr 150 mg PO QAM spironolactone 25 mg Tablet 50 mg PO QAM Rx Instructions: 2 tablet dose pantoprazole [Protonix] 40 mg Tablet,Delayed Release (Dr/Ec) 40 mg PO BID nitroglycerin [Nitrostat] 0.4 mg Tablet, Sublingual 0.4 mg Sublingual DIRECTED PRN (Reason: Chest Pain) Label Comments: SPRAY - NEVER HAD TO USE folic acid 1 mg Tablet 2 mg PO DAILY albuterol sulfate [Proventil HFA] 90 mcg/actuation Hfa Aerosol Inhaler 2 puff INHALATION Q4 PRN (Reason: Shortness Of Breath Or Wheezing) lisinopril 2.5 mg Tablet 2.5 mg PO QAM cholecalciferol (vitamin D3) [Vitamin D3] 2,000 unit Capsule 2,000 unit PO DAILY Label Comments: HAS VITAMIN C IN IT - EVENING insulin lispro [Humalog U-100 Insulin] 100 unit/mL solution 50 unit subcut TID Rx Instructions: sliding scale ondansetron HCl 4 mg tablet 4 mg PO Q6 PRN (Reason: Nausea) warfarin 4 mg tablet See Rx Instructions .ROUTE .COMPLEX Rx Instructions: take 1/2 tablet on wednesdays and 1 whole tablet by mouth all other days in the evening buspirone 10 mg tablet 10 mg PO BID risperidone 0.5 mg tablet 0.5 mg PO HS ezetimibe 10 mg tablet 10 mg PO DAILY diclofenac sodium 1 % gel 2 g TOPICAL BID Rx Instructions: apply to right knee aspirin 81 mg Tablet,Delayed Release (Dr/Ec) 81 mg PO DAILY Referrals Referrals: Mitchel Brown, LIBBY [Primary Care Provider] -
[2022-05-08] MEDS ORDERED: ETOMIDATE 2 MG/ML 20 ML VIAL IV ONE (12:56)
[2022-05-08] MEDS ORDERED: dilTIAZem HCl 5 MG/ML 5 ML VIAL IV STA (13:05)
[2022-05-08] MEDS ORDERED: STAT IV Infusion **Titration per Protocol STA ×4 (13:05→19:40)
[2022-05-08 13:06] LABS: Hematocrit (blood only) 37.8 % (34.1-44.9); Hemoglobin 12.3 g/dl (12.0-16.0); Mean Corpuscular Hemoglobin 28.9 pg (25.0-34.0); Mean Corpuscular Hgb Conc 32.5 g/dL (32.0-36.0); Mean Corpuscular Volume 88.9 fL (80.0-100.0); Mean Platelet Volume 11.4 fL (9.4-12.3); Platelet Count 193 K/uL (130-400); RDW Coefficient of Variation 15.7 % (11.5-14.5); RDW Standard Deviation 50.9 fL (36.4-46.3); Red Blood Count 4.25 M/uL (3.93-5.22); White Blood Count 27.61 K/ul (4.8-10.8)
[2022-05-08 13:10] LABS: iSTAT Creatinine 1.9 mg/dl (0.6-1.3); iSTAT Hemoglobin 13.6 g/dl (12.0-16.0); iSTAT Ionized Calcium 1.13 mmol/l (1.12-1.32); iSTAT Potassium 4.7 mmol/L (3.3-5.0)
[2022-05-08] MEDS ORDERED: dilTIAZem HCL 125 MG in DEXTROSE 5% 100 ML IV SCH (13:15)
--- NOTE | 2022-05-08 13:19 | Cardiology Consultation ---
Date of Consultation May 08, 2022 Assessment & Plan (1) Wide-complex tachycardia: (2) Cirrhosis: (3) Congestive heart failure due to valvular disease: (4) Warfarin anticoagulation: (5) Atrial flutter: (6) H/O mechanical aortic valve replacement: (7) H/O pericardiectomy: Plan Suspect wide complex tachycardia is SVT with rate related LBBB hx of intermittent LBBB clinically stable, maintaining adequate BP comfortable on BIPAP COVID pneumonia likely inciting event INR subtherapeutic on 04/20 high risk of cardioembolic event with emergent cardioversion discussed with patient and daughter, Silvia, at bedside they agree would prefer to try medications first on sotalol but has not taken any meds for 3 days may consider amiodarone but would start with IV cardizem bolus and load for now monitor in ICU History of Present Illness Reason for Consultation: wide complex tachycardia Requesting Physician: Dr. Ellis Attending Physician: SHADI Allergies Allergy/AdvReac Type Severity Reaction Status Date / Time ciprofloxacin AdvReac Mild vomitting Verified 04/22/22 16:42 erythromycin base AdvReac Mild vomiting Verified 04/22/22 16:42 gabapentin AdvReac Mild RETAIN Verified 04/22/22 16:42 FLUIDS hydroxyzine AdvReac Mild runny nose Verified 04/22/22 16:42 and eyes water Sulfa (Sulfonamide AdvReac Mild vomitting Verified 04/22/22 16:42 Antibiotics) tetracycline AdvReac Mild vomitting Verified 04/22/22 16:42 Home Medications Medication Instructions Recorded Confirmed Type albuterol sulfate 90 mcg/actuation 2 puff inhalation Q4 PRN Shortness 01/01/19 04/22/22 History aerosol inhaler (Proventil HFA) Of Breath Or Wheezing atorvastatin 80 mg tablet 80 mg PO HS 01/01/19 04/22/22 History buspirone 5 mg tablet 5 mg PO BID 01/01/19 04/22/22 History cholecalciferol (vitamin D3) 50 2,000 unit PO DAILY 01/01/19 04/22/22 History mcg (2,000 unit) capsule (Vitamin D3) cyclobenzaprine 5 mg tablet 5 mg PO UD PRN Muscle Spasm 01/01/19 04/22/22 History diphenhydramine 25 1 tab PO HS PRN Sleep 01/01/19 04/22/22 History mg-acetaminophen 500 mg tablet (Tylenol PM Extra Strength) fluticasone propionate 50 2 spray intranasal UD PRN Nasal 01/01/19 04/22/22 History mcg/actuation nasal Congestion spray,suspension (Flonase Allergy Relief) folic acid 1 mg tablet 2 mg PO BID 01/01/19 04/22/22 History insulin glargine 100 unit/mL 60 unit subcut QAM 01/01/19 04/22/22 History subcutaneous solution (Lantus U-100 Insulin) insulin lispro 100 unit/mL 25 unit subcut UD 01/01/19 04/22/22 History subcutaneous pen (Humalog KwikPen (U-100) Insulin) ipratropium 0.5 mg-albuterol 3 mg 3 ml inhalation QID PRN Shortness 01/01/19 04/22/22 History (2.5 mg base)/3 mL nebulization Of Breath Or Wheezing soln ipratropium 20 mcg-albuterol 100 2 puff inhalation BID PRN 01/01/19 04/22/22 History mcg/actuation mist for inhalation Shortness Of Breath Or Wheezing (Combivent Respimat) iron,carbonyl 65 mg-vitamin C 125 1 tab PO QPM 01/01/19 04/22/22 History mg tablet,delayed release (Vitron-C) lisinopril 2.5 mg tablet 2.5 mg PO QAM 01/01/19 04/22/22 History magnesium chloride 64 mg 64 mg PO BID 01/01/19 04/22/22 History (magnesium chloride) tablet,delayed release (Mag 64) metformin 500 mg tablet 500 mg PO BIDM 01/01/19 04/22/22 History nitroglycerin 0.4 mg sublingual 0.4 mg sublingual DIRECTED PRN 01/01/19 04/22/22 History tablet (Nitrostat) Chest Pain ondansetron HCl 4 mg tablet 4 mg PO BID 01/01/19 04/22/22 History (Zofran) pantoprazole 40 mg tablet,delayed 40 mg PO BID 01/01/19 04/22/22 History release (Protonix) potassium chloride 10 mEq 30 meq PO BID 01/01/19 04/22/22 History capsule,extended release risperidone 1 mg tablet 1 mg PO HS 01/01/19 04/22/22 History silver nitrate 10 % topical 1 applic topical UD PRN SKIN 01/01/19 04/22/22 History ointment PROBLEM sotalol 80 mg tablet 80 mg PO BID 01/01/19 04/22/22 History spironolactone 25 mg tablet 25 mg PO QAM 01/01/19 04/22/22 History torsemide 20 mg tablet 20 mg PO BID 01/01/19 04/22/22 History venlafaxine 150 mg 150 mg PO QAM 01/01/19 04/22/22 History capsule,extended release 24 hr (Effexor XR) warfarin 4 mg tablet (Coumadin) 4 mg PO QPM 01/01/19 04/22/22 History aspirin 81 mg tablet,delayed 81 mg PO DAILY 01/29/22 04/22/22 History release enoxaparin 40 mg/0.4 mL 40 mg subcut BID 02/02/22 04/22/22 History subcutaneous syringe (Lovenox) Patient History Medical History (Updated 05/08/22 @ 13:16 by Sonido Adams DO) Afib 3 YR AGO DX - HX CARDIOVERSION X2 AFIB TRIGGERED BY STRESS/ANXIETY Anemia resolved Anxiety and depression FOLLOWS PSYCHIATRIST Q 3 MON CURRENT CONTROLLED AND STABLE Arthritis Asthma CONTROLLED Cirrhosis of liver Diabetes Family history of reaction to anesthesia MOM - SLOW TO WAKE UP History of blood clots approx 1 year ago > aortic clot per pt, Coumadin and ASA, dissolved per pt History of cardioversion X2 History of colon polyps BENIGN Insomnia Mitral valve prolapse >23 YR AGO, MILD - NO REQUIRED INTERVENTION - FOLLOWS CARDIO POLI LAGUERRE Seasonal allergies Sleep apnea CPAP - QUIT USING 2-3 YRS AGO D/T NO CLEANING SOLUTION FOR AND WON'T USE D/T CONCERN FOR INFECTION SOB (shortness of breath) on exertion resolved per pt. Surgical History (Updated 05/08/22 @ 13:16 by Sonido Adams DO) History of cholecystectomy History of colonoscopy History of endoscopy History of hernia surgery X9 History of left cataract extraction History of tonsillectomy Hx of pericardiotomy 30 yrs ago Mechanical heart valve present AORTIC VALVE - >23 YR AGO Family History Other Family history of diabetes mellitus Social History Smoking Status: Never smoker Second Hand Exposure: No; Hx Alcohol Use: No Hx Substance Use: No Preferred Language: Czech Communication Ability: Effective Zoogler Required: No Beliefs That Will Affect Care: None Current Living Situation: Spouse Feels Safe at Home: Yes Assistive Devices: Denture - Upper and Glasses Results & Data ([facility]) Vital Signs (Past 12 Hours) Vital Signs Temp Pulse Pulse Resp BP BP Pulse Ox 05/08/22 13:05 191 H 38 H 96 05/08/22 12:55 185 H 20 117/84 91 05/08/22 12:55 91 05/08/22 12:54 185 H 20 91 05/08/22 12:29 36.6 C 112 H 22 127/90 97 O2 Del Method FiO2 05/08/22 13:05 30 05/08/22 12:55 Room Air 05/08/22 12:55 Room Air 05/08/22 12:54 Room Air 05/08/22 12:29 Room Air
[2022-05-08 13:36] LABS: INR 3.8 (0.9-1.1); Partial Thromboplastin Ratio 1.6; Partial Thromboplastin Time 44.8 Seconds (21.0-31.0); Prothrombin Time 37.3 Seconds (9.0-12.0)
[2022-05-08 13:37] LABS: Albumin Globulin Ratio 0.9 (0.9-2); Albumin Level 3.7 gm/dl (3.4-5.0); BUN Creatinine Ratio 18.7 (10-20); Bilirubin,Total 2.2 mg/dl (0.2-1.0); Calcium 9.3 mg/dl (8.5-10.1); Creatinine Clr Calc Pharmacy 28.6 ml/min; Est GFR (African American) 32.5 ml/min; Globulin 4.1 gm/dl (2.5-4.0); Magnesium 1.7 mg/dl (1.7-2.4); Phosphorus 4.7 mg/dl (2.5-4.9); Potassium 4.6 mmol/L (3.5-5.1); Total Protein 7.8 gm/dl (6.0-8.3); Troponin I High Sensitivity 226.4 pg/ml (0-14)
[2022-05-08] MEDS ORDERED: PIPERACILLIN/TAZOBACTAM 4.5 GM/120 ML BAG IV ONE (13:39)
[2022-05-08] MEDS ORDERED: PHARMACY GLYCEMIC MGMT CONSULT PRN ×2 (13:39→18:34)
--- NOTE | 2022-05-08 13:41 | XRay Report ---
SINGLE VIEW CHEST CLINICAL HISTORY: Generalized weakness. FINDINGS: An AP, portable, upright chest radiograph is compared to study dated 01/01/2019. The the pat ient is status post midline sternotomy and cardiac valve surgery. The heart is enlarged. There is pul monary vascular congestion with evidence of interstitial edema. Small pleural effusions are suspected with bibasilar consolidation. No pneumothorax is seen. The skeletal structures are osteopenic. The b zeynep thorax is grossly intact. Calcific tendinopathy is noted in the left shoulder. IMPRESSION: 1. Cardiomegaly with congestive failure and pulmonary edema. 2. Suspect small pleural effusions. ACT 112: Negative or not required by law. Electronically signed by: Oscar Sharif M.D. 05/08/2022 1:39 PM
[2022-05-08] MEDS ORDERED: SODIUM CHLORIDE 0.9% 1000ML 500 ML IV ONE ×3 (13:44→15:09)
[2022-05-08] MEDS ORDERED: VANCOMYCIN HCL 1,750 MG in SODIUM CHLORIDE 0.9% 500 ML IV ONE (13:47)
[2022-05-08] MEDS ORDERED: VANCOMYCIN CONSULT ACTIVE PRN (13:47)
[2022-05-08 13:49] LABS: Base Excess VBG -11.6 mEq/L; HCO3 VBG 14 mmol/L; Oxygen Saturation VBG 95.1 %; PCO2 VBG 28 mmHg (38-50); PO2 VBG 73 mmHg; pH VBG 7.29 (7.36-7.41)
[2022-05-08 14:21] LABS: ALC (manual) 0.83 K/uL (1.2-3.4); ANC (manual) 23.47 K/uL (1.4-6.5); Lymphocytes # (manual) 0.83 K/uL (1.2-3.4); Lymphocytes % (manual) 3 %; Metamyelocytes % (manual) 4 %; Monocytes # (manual) 1.93 K/uL (0.24-0.82); Monocytes % (manual) 7 %; Myelocytes # (manual) 0.28 K/uL (0-0); Myelocytes % (manual) 1 %; Neutrophils # (manual) 23.47 K/uL (1.4-6.5); Neutrophils % (manual) 85 %
[2022-05-08] MEDS: INSULIN REGULAR 250 UNITS in SODIUM CHLORIDE 0.9% 247.5 ML IV SCH (14:49)
--- NOTE | 2022-05-08 15:20 | History & Physical Report ---
Date of Service May 08, 2022 Assessment & Plan (1) Diabetic ketoacidosis: (2) Severe sepsis: (3) Dyslipidemia: Plan 66 year old female with h/o CHF, Cirrhosis of liver, A flutter, DM-2 on insulin, CT A/P There is dense right lower lobe consolidation typical for pneumonia. Clinical correlation will be required and radiographic follow-up to resolution is recommended. 2. The liver is cirrhotic in morphology and heterogeneous in attenuation. 3. Splenomegaly and trace abdominopelvic ascites indicate portal hypertension. 4. There is a 6.7 cm simple cystic lesion in the right adnexa, likely related to the right ovary. This has significantly increased in size dating back to 2018. Nonemergent pelvic ultrasound and gynecology follow-up is recommended. 5. Additional findings as above. DKA- BG 400s, bicarb 15, AG 21. Hasn't taken any meds as well as insulin for past 3 days. DKA in setting of acute illness and medication non compliance. - Continue DKA protocol with insulin drip and IVF but cautious with IVF given CHF and cirrhosis of liver. - Glycemic pharmacist consulted - Consult certified adaptive physical educator - Monitor q4hr labs and replete electrolytes as indicated. Switch drip to basal bolus insulin when AG closed. Wide complex tachycardia- seen by cardio- suspected SVT with rate related LBBB per cardio- started on cardizem bolus and drip. HR in 120s-130s. INR currently supratherapeutic but was subtherapeutic on 04/20, hence high risk of cardioembolic event with emergent cardioversion per cardio. May need amiodarone. ICU monitoring recommended. Severe sepsis with PNA with resp distress- Meets sepsis criteria with leucocytosis, tachycardia, tachypnea and lactic acidosis. CT with RLL PNA. Continue empiric Vanc/zosyn pending blood culture results. Check MRSA swab- if negative discontinue vancomycin. Currently on BIPAP and RR in 30s. Follow up CT to ensure resolution recommended. Acute on chronic diastolic CHF- CXR with cardiomegaly with CHF and pulmonary edema. Cautious with IVF for DKA. Continue BIPAP. Resume lasix when able. DANDRE- Baseline Cr of 0.7-0.8. Currently 1.9. In setting of sepsis, tachycardia and acute illness. Getting ivf. hold nephrotoxics and diuretics. Recheck. Elevated troponin- trop mildly elevated but no chest pain. likely demand ischemia in setting of multiple medical problems as above. Will trend troponin and monitor in tele. Cardio following Mechanical AV on coumadin with supratherapeutic INR- INR 3.8. Hold coumadin. Check INR daily, resume when INR drops down to therapeutic range and able to take po otherwise will need heparin drip Cirrhosis of liver with splenomegaly- trace ascites but splenomegaly and portal HTN- Hold diuretic. Continue lactulose when able to take po. Hyponatremia- pseudohyponatremia in setting of high BG. Right adnexal cystic lesion- 6.[address], increased from 2018. Recommended non emergent pelvic US and driver material handler follow up. DVT ppx- INR 3.8. Coumadin on hold. SCDs Dispo- Admit to ICU. Spoke to Dr Carroll. Full code- discussed at bedside History of Present Illness Chief Complaint: Not feelling well Primary Care Provider: Mitchel Brown PA-C 66 year old female with h/o Aflutter, IDDM, chronic diastolic CHF, cirrhosis of liver, mechanical AV on coumadin, GERD who presented to the ED today for 'not f eeling well' for past 3 days. States for past 3 days she has not been feeling well and has not taken any of her medications including insulin. States has fever but did not take any temperature. States has diarrhea about 2 BM daily but no blood. Denies any cough, chest pain, nausea, vomiting, abdominal pain. Drinking fluids at home but not eating much. Does not smoke or drink alcohol. Lives with her . Her does not know her medications- tried my best to reconcile medications with her at bedside. In the ED, she was afebrile, BP stable but found to be in wide complex tachycardia- seen by cardio and started on cardizem drip and bolus and recommended ICU monitoring. Also found to have sepsis with RLL PNA as well as DKA and started on empiric vanc/zosyn and DKA protocol, however cautious with IVF given evidence of pulm edema and respiratory distress and was started on BIPAP. Spoke to green jobs trainer and being admitted to ICU. Allergies Allergy/AdvReac Type Severity Reaction Status Date / Time ciprofloxacin AdvReac Mild vomitting Verified 05/08/22 15:53 erythromycin base AdvReac Mild vomiting Verified 07/23/22 15:53 gabapentin AdvReac Mild RETAIN Verified 05/08/22 15:53 FLUIDS hydroxyzine AdvReac Mild runny nose Verified 05/08/22 15:53 and eyes water Sulfa (Sulfonamide AdvReac Mild vomitting Verified 05/08/22 15:53 Antibiotics) tetracycline AdvReac Mild vomitting Verified 05/08/22 15:53 Home Medications Medication Instructions Recorded Confirmed Type albuterol sulfate 90 mcg/actuation 2 puff inhalation Q4 PRN Shortness 01/01/19 05/08/22 History aerosol inhaler (Proventil HFA) Of Breath Or Wheezing atorvastatin 80 mg tablet 80 mg PO HS 01/01/19 04/22/22 History cholecalciferol (vitamin D3) 50 2,000 unit PO DAILY 01/01/19 04/22/22 History mcg (2,000 unit) capsule (Vitamin D3) folic acid 1 mg tablet 2 mg PO DAILY 01/01/19 04/22/22 History insulin glargine 100 unit/mL 60 unit subcut QAM 01/01/19 04/22/22 History subcutaneous solution (Lantus U-100 Insulin) lisinopril 2.5 mg tablet 2.5 mg PO QAM 01/01/19 04/22/22 History metformin 500 mg tablet 500 mg PO BIDM 01/01/19 04/22/22 History nitroglycerin 0.4 mg sublingual 0.4 mg sublingual DIRECTED PRN 01/01/19 05/08/22 History tablet (Nitrostat) Chest Pain pantoprazole 40 mg tablet,delayed 40 mg PO BID 01/01/19 04/22/22 History release (Protonix) potassium chloride 10 mEq 30 meq PO BID 01/01/19 04/22/22 History capsule,extended release sotalol 80 mg tablet 80 mg PO BID 01/01/19 04/22/22 History spironolactone 25 mg tablet 50 mg PO QAM 01/01/19 05/08/22 History torsemide 20 mg tablet 20 mg PO BID 01/01/19 05/08/22 History venlafaxine 150 mg 150 mg PO QAM 01/01/19 05/08/22 History capsule,extended release 24 hr (Effexor XR) aspirin 81 mg tablet,delayed 81 mg PO DAILY 01/29/22 05/08/22 History release buspirone 10 mg tablet 10 mg PO BID 05/08/22 05/08/22 History diclofenac sodium 1 % topical gel 2 g topical BID 05/08/22 05/08/22 History ezetimibe 10 mg tablet 10 mg PO DAILY 05/08/22 05/08/22 History insulin lispro 100 unit/mL 50 unit subcut TID 05/08/22 05/08/22 History subcutaneous solution (Humalog U-100 Insulin) ondansetron HCl 4 mg tablet 4 mg PO Q6 PRN Nausea 05/08/22 05/08/22 History risperidone 0.5 mg tablet 0.5 mg PO HS 05/08/22 05/08/22 History warfarin 4 mg tablet See Rx Instructions .Route .COMPLEX 05/08/22 05/08/22 History Past Med/Surg History Medical History Afib 3 YR AGO DX - HX CARDIOVERSION X2 AFIB TRIGGERED BY STRESS/ANXIETY Anemia resolved Anxiety and depression FOLLOWS PSYCHIATRIST Q 3 MON CURRENT CONTROLLED AND STABLE Arthritis Asthma CONTROLLED Cirrhosis of liver Diabetes Diabetic ketoacidosis Family history of reaction to anesthesia MOM - SLOW TO WAKE UP History of blood clots approx 1 year ago > aortic clot per pt, Coumadin and ASA, dissolved per pt History of cardioversion X2 History of colon polyps BENIGN Insomnia Mitral valve prolapse >23 YR AGO, MILD - NO REQUIRED INTERVENTION - FOLLOWS CARDIO POLI LAGUERRE Seasonal allergies Severe sepsis Sleep apnea CPAP - QUIT USING 2-3 YRS AGO D/T NO CLEANING SOLUTION FOR AND WON'T USE D/T CONCERN FOR INFECTION SOB (shortness of breath) on exertion resolved per pt. Surgical History History of cholecystectomy History of colonoscopy History of endoscopy History of hernia surgery X9 History of left cataract extraction History of tonsillectomy Hx of pericardiotomy 30 yrs ago Mechanical heart valve present AORTIC VALVE - >23 YR AGO Family History Other Family history of diabetes mellitus Social History Smoking Status: Never smoker Second Hand Exposure: No; Hx Alcohol Use: No Hx Substance Use: No Preferred Language: Slovenian Communication Ability: Effective Geotechnical Laboratory Technician Required: No Beliefs That Will Affect Care: None Current Living Situation: Spouse Feels Safe at Home: Yes Assistive Devices: Denture - Upper and Glasses Review of Systems Review of Systems: All systems reviewed & are unremarkable except as noted in Subjective Physical Exam Physical Exam: General: Lying in bed, slightly uncomfortable on BIPAP, increased work of breathing HEENT: EOMI, PERRL Chest: Coarse breath sounds bilaterally, no wheezes CVS: Tachycardic, no murmur Abdomen: Soft, non tender, distended, normal bowel sounds Neuro: Awake, alert, oriented, conversing well, non focal Extremities: No edema Results & Data Results & Data ([facility]) Vital Signs (Past 12 Hours) Vital Signs Temp Pulse Pulse Resp BP BP Pulse Ox 05/08/22 15:00 127 H 18 107/62 97 05/08/22 13:41 123 H 40 H 118/73 96 05/08/22 13:20 111 H 39 H 95 05/08/22 13:16 122/90 05/08/22 13:16 193 H 29 H 95 05/08/22 13:10 192 H 41 H 96 05/08/22 13:00 189 H 37 H 96 05/08/22 12:52 185 H 39 H 93 05/08/22 13:05 191 H 38 H 96 05/08/22 12:55 185 H 20 117/84 91 05/08/22 12:55 91 05/08/22 12:54 185 H 20 91 05/08/22 12:29 36.6 C 112 H 22 127/90 97 O2 Del Method FiO2 05/08/22 15:00 BiPAP 30 05/08/22 13:41 BiPAP 05/08/22 13:20 05/08/22 13:16 05/08/22 13:16 05/08/22 13:10 05/08/22 13:00 05/08/22 12:52 05/08/22 13:05 30 05/08/22 12:55 Room Air 05/08/22 12:55 Room Air 05/08/22 12:54 Room Air 05/08/22 12:29 Room Air Laboratory Results Short CBC 05/08/22 Range/Units 12:50 WBC 27.61 H (4.8-10.8) K/ul Hgb 12.3 (12.0-16.0) g/dl Hct 37.8 (34.1-44.9) % Plt Count 193 (130-400) K/uL BMP 05/08/22 12:50 Sodium 127 L Potassium 4.6 Chloride 93 L Carbon Dioxide 13 L BUN 34 H Creatinine 1.82 H Glucose 417 H* Calcium 9.3 Cardiac Enzymes 05/08/22 Range/Units 12:50 Total Creatine Kinase 355 H (26-192) U/L Liver Function 05/08/22 Range/Units 12:50 Total Bilirubin 2.2 H (0.2-1.0) mg/dl AST 35 (13-39) U/L ALT 28 (7-52) U/L Alkaline Phosphatase 73 (34-104) U/L Albumin 3.7 (3.4-5.0) gm/dl Diagnostic Findings Chest X-Ray 05/08/22 12:47 SINGLE VIEW CHEST CLINICAL HISTORY: Generalized weakness. FINDINGS: An AP, portable, upright chest radiograph is compared to study dated 01/01/2019. The the patient is status post midline sternotomy and cardiac valve surgery. The heart is enlarged. There is pulmonary vascular congestion with evidence of interstitial edema. Small pleural effusions are suspected with bibasilar consolidation. No pneumothorax is seen. The skeletal structures are osteopenic. The bony thorax is grossly intact. Calcific tendinopathy is noted in the left shoulder. IMPRESSION: 1. Cardiomegaly with congestive failure and pulmonary edema. 2. Suspect small pleural effusions. ACT 112: Negative or not required by law. Electronically signed by: Oscar Sharif M.D. 05/08/2022 1:39 PM Abdomen/Pelvis CT 05/08/22 13:47 CT SCAN OF THE ABDOMEN AND PELVIS WITHOUT IV CONTRAST CLINICAL HISTORY: Leukocytosis. COMPARISON STUDY: Abdominal CT dated 05/03/2018. TECHNIQUE: CT scan of the abdomen and pelvis is performed from the lung bases to the proximal femora. Images are reviewed in the axial, sagittal, and coronal planes. IV contrast was not administered for this examination. Note that the examination was performed in significantly suboptimal fashion without oral and IV contrast. A dose lowering technique was utilized adhering to the principles of ALARA. CT DOSE: 990.36 mGy.cm FINDINGS: Lung bases: The heart is enlarged and without pericardial effusion. The coronary arteries and mitral annulus are densely calcified. Diminished attenuation of the cardiac blood pool as compared to the myocardium suggests anemia. There is a small hiatal hernia. There is dense airspace consolidation in the right lower lobe. The left lung base is clear. No pleural effusion is identified. Liver: The unenhanced liver is cirrhotic in morphology and heterogeneous in attenuation. There is hypertrophy of the left lobe and nodularity of the hepatic surface contour. There is no intrahepatic biliary ductal dilatation. Gallbladder: Surgically absent noting clips in the gallbladder fossa. Spleen: The spleen is enlarged, measuring 14.3 cm in length. Pancreas: The unenhanced pancreas is moderately atrophic and grossly unremarkable. Adrenal glands: Unremarkable. Kidneys: The unenhanced kidneys are normal in size and without hydronephrosis. There are no renal calculi identified. There is no evidence of contour deforming renal mass lesion. Abdominal vasculature: The abdominal aorta is normal in course and caliber noting moderate atherosclerotic calcification. Bowel: There is mild colonic diverticulosis without CT evidence of acute diverticulitis. No bowel obstruction is identified. The appendix is well- visualized and normal. Peritoneum: There is trace perihepatic ascites. No intraperitoneal free air is identified. A fat-containing ventral hernia is seen in the right upper quadrant on image #157. There is evidence of previous ventral hernia repair in the pelvis. Lymphadenopathy: None. Pelvic viscera: The bladder wall appears circumferentially thickened. The uterus is normal as visualized. There is a 6.7 cm simple cystic lesion identified in the right adnexa seen on image #298. Trace free fluid is seen in the pelvis. Skeletal structures: The skeletal structures are osteopenic. Mild lumbosacral spondylosis is observed. No lytic or blastic lesions are seen. IMPRESSION: 1. There is dense right lower lobe consolidation typical for pneumonia. Clinical correlation will be required and radiographic follow-up to resolution is recomme nded. 2. The liver is cirrhotic in morphology and heterogeneous in attenuation. 3. Splenomegaly and trace abdominopelvic ascites indicate portal hypertension. 4. There is a 6.7 cm simple cystic lesion in the right adnexa, likely related to the right ovary. This has significantly increased in size dating back to 2018. Nonemergent pelvic ultrasound and gynecology follow-up is recommended. 5. Additional findings as above. ACT 112: Negative or not required by law. Electronically signed by: Oscar Sharif M.D. 05/08/2022 3:28 PM
--- NOTE | 2022-05-08 15:30 | CT Scan Report ---
CT SCAN OF THE ABDOMEN AND PELVIS WITHOUT IV CONTRAST CLINICAL HISTORY: Leukocytosis. COMPARISON STUDY: Abdominal CT dated 05/03/2018. TECHNIQUE: CT scan of the abdomen and pelvis is performed from the lung bases to the proximal femora. Images are reviewed in the axial, sagittal, and coronal planes. IV contrast was not administered for this examination. Note that the examination was performed in significantly suboptimal fashion withou t oral and IV contrast. A dose lowering technique was utilized adhering to the principles of ALARA. CT DOSE: 990.36 mGy.cm FINDINGS: Lung bases: The heart is enlarged and without pericardial effusion. The coronary arteries and mitral annulus are densely calcified. Diminished attenuation of the cardiac blood pool as compared to the my ocardium suggests anemia. There is a small hiatal hernia. There is dense airspace consolidation in th e right lower lobe. The left lung base is clear. No pleural effusion is identified. Liver: The unenhanced liver is cirrhotic in morphology and heterogeneous in attenuation. There is hyp ertrophy of the left lobe and nodularity of the hepatic surface contour. There is no intrahepatic david iary ductal dilatation. Gallbladder: Surgically absent noting clips in the gallbladder fossa. Spleen: The spleen is enlarged, measuring 14.3 cm in length. Pancreas: The unenhanced pancreas is moderately atrophic and grossly unremarkable. Adrenal glands: Unremarkable. Kidneys: The unenhanced kidneys are normal in size and without hydronephrosis. There are no renal franklin culi identified. There is no evidence of contour deforming renal mass lesion. Abdominal vasculature: The abdominal aorta is normal in course and caliber noting moderate atheroscle rotic calcification. Bowel: There is mild colonic diverticulosis without CT evidence of acute diverticulitis. No bowel obs truction is identified. The appendix is well-visualized and normal. Peritoneum: There is trace perihepatic ascites. No intraperitoneal free air is identified. A fat-cont aining ventral hernia is seen in the right upper quadrant on image #157. There is evidence of previou s ventral hernia repair in the pelvis. Lymphadenopathy: None. Pelvic viscera: The bladder wall appears circumferentially thickened. The uterus is normal as visuali zed. There is a 6.7 cm simple cystic lesion identified in the right adnexa seen on image #298. Trace free fluid is seen in the pelvis. Skeletal structures: The skeletal structures are osteopenic. Mild lumbosacral spondylosis is observed . No lytic or blastic lesions are seen. IMPRESSION: 1. There is dense right lower lobe consolidation typical for pneumonia. Clinical correlation will be required and radiographic follow-up to resolution is recommended. 2. The liver is cirrhotic in morphology and heterogeneous in attenuation. 3. Splenomegaly and trace abdominopelvic ascites indicate portal hypertension. 4. There is a 6.7 cm simple cystic lesion in the right adnexa, likely related to the right ovary. Thi s has significantly increased in size dating back to 2018. Nonemergent pelvic ultrasound and gynecolo gy follow-up is recommended. 5. Additional findings as above. ACT 112: Negative or not required by law. Electronically signed by: Oscar Sharif M.D. 05/08/2022 3:28 PM
[2022-05-08] MEDS ORDERED: PIPERACILLIN/TAZOBACTAM 4.5 GM/120ML D5W IV ONE (16:19)
[2022-05-08 16:24] LABS: BUN Creatinine Ratio 19.1 (10-20); Calcium 8.7 mg/dl (8.5-10.1); Creatinine Clr Calc Pharmacy 27.7 ml/min; Est GFR (African American) 31.3 ml/min; Magnesium 1.6 mg/dl (1.7-2.4); Phosphorus 4.1 mg/dl (2.5-4.9); Potassium 4.1 mmol/L (3.5-5.1)
--- NOTE | 2022-05-08 16:24 | Critical Care Consultation ---
Date of Consultation May 08, 2022 Assessment & Plan (1) Severe sepsis: (2) Wide-complex tachycardia: (3) Volume overload: (4) Warfarin anticoagulation: (5) Diabetic ketoacidosis: Plan 66-year-old female with a history of mechanical aortic valve on warfarin, GERD, hypertension, diabetes, diastolic heart failure, hyperlipidemia and anxiety presented to the hospital due to shortness of breath and lethargy. She was found to be in DKA with wide-complex tachycardia and lactic acidosis. Neurologic: Lethargic due to mild metabolic encephalopathy. Avoid sedating agents. Pulmonary: Continue BiPAP given the patient's presentation of acute diastolic CHF and increased work of breathing. Would prefer to avoid intubation given the patient's metabolic acidosis. Chest x-ray with pulm edema. CT of the abdomen demonstrated intense infiltrate in the right lower lobe suggestive of possible aspiration pneumonia. Cardiovascular: Patient with history of mechanical aortic valve on warfarin. We will hold warfarin at this time due to elevated INR. Judicious use of fluids and diur etics. Cardiology following the patient. Currently on diltiazem drip. Hypotensive may need to consider transitioning to amiodarone or giving a dose of digoxin. The patient had signs of worsening hemodynamic parameters with SVT, will need to consider cardioversion. Gastrointestinal: Protonix. NPO. CT abdomen results reviewed with no acute findings. Renal: Patient with lactic acidosis and DANDRE. Continue fluid resuscitation. Continue DKA protocol. Infectious disease: Continue vancomycin and Zosyn. Blood cultures and urine cultures pending. Hematologic: No significant issues. Patient on warfarin with a supratherapeutic INR. We will hold warfarin at this time. Endocrine: TSH normal. DKA protocol as above. Insulin infusion. VTE prophylaxis: Therapeutic INR CODE STATUS: Full Family at bedside: None Disposition: ICU Patient discussed with bedside nurse, hospitalist, ER physician and ICU nurse. I have personally spent 49 minutes of critical care time in the direct manageme nt of this patient. This is a life/limb threatening event. This includes time spent evaluating patient, direct bedside care, chart review, placing orders, interpretation of diagnostic studies, discussion with consultants, patient, and family members, as well as other required patient management activities. This time is exclusive of all separately billable procedures, and teaching time and separate from and in addition to any other critical care service time. Thank you for allowing us to participate in the care of this patient. History of Present Illness Reason for Consultation: Diabetic ketoacidosis and atrial fibrillation with rapid ventricular response History of Present Illness 66-year-old female who presented to the hospital due to feeling unwell for the past 3 days. She has not been taking her usual medications due to feeling unwell and short of breath. She has occasional cough with no significant sputum production. She denies any nausea or vomiting. In the ER she was given crystalloid bolus of 500 cc Normosol x2. She was also started on Cardizem drip due to wide-complex tachycardia which was felt to be SVT with a left bundle branch block. She has been evaluated by cardiology. She had an elevated white count of 27,000 on arrival. Hemoglobin is stable. INR elevated to 3.8. She does have a history of mechanical aortic valve. VBG with a pH of 7.2. Labs suggestive of DKA with an anion gap of 23. Creatinine is elevated to 1.9. Sodium 128. Glucose 422. Patient is currently on insulin drip. She had a CT of her abdomen completed today with suggested airspace opacity in the right lower lobe. Cirrhotic liver was seen. 6.7 cm simple cyst noted in the right adnexa. Chest x-ray revealed cardiomegaly with CHF and small pleural effusions. COVID-19 screen on arrival was negative. Lactate is elevated. Patient is currently on vancomycin and received a dose of Zosyn. Blood cultures pending. Urinalysis ordered. Patient appears comfortable at this time. She is on BiPAP with an FiO2 of 30%. Settings of 12/6. Heart rates in the 120s. Allergies Allergy/AdvReac Type Severity Reaction Status Date / Time ciprofloxacin AdvReac Mild vomitting Verified 05/08/22 15:53 erythromycin base AdvReac Mild vomiting Verified 05/08/22 15:53 gabapentin AdvReac Mild RETAIN Verified 05/08/22 15:53 FLUIDS hydroxyzine AdvReac Mild runny nose Verified 05/08/22 15:53 and eyes water Sulfa (Sulfonamide AdvReac Mild vomitting Verified 05/08/22 15:53 Antibiotics) tetracycline AdvReac Mild vomitting Verified 05/08/22 15:53 Home Medications Medication Instructions Recorded Confirmed Type albuterol sulfate 90 mcg/actuation 2 puff inhalation Q4 PRN Shortness 01/01/19 05/08/22 History aerosol inhaler (Proventil HFA) Of Breath Or Wheezing atorvastatin 80 mg tablet 80 mg PO HS 01/01/19 05/08/22 History cholecalciferol (vitamin D3) 50 2,000 unit PO DAILY 01/01/19 05/08/22 History mcg (2,000 unit) capsule (Vitamin D3) folic acid 1 mg tablet 2 mg PO DAILY 01/01/19 05/08/22 History insulin glargine 100 unit/mL 60 unit subcut QAM 01/01/19 05/08/22 History subcutaneous solution (Lantus U-100 Insulin) lisinopril 2.5 mg tablet 2.5 mg PO QAM 01/01/19 05/08/22 History metformin 500 mg tablet 500 mg PO BIDM 01/01/19 05/08/22 History nitroglycerin 0.4 mg sublingual 0.4 mg sublingual DIRECTED PRN 01/01/19 05/08/22 History tablet (Nitrostat) Chest Pain pantoprazole 40 mg tablet,delayed 40 mg PO BID 01/01/19 05/08/22 History release (Protonix) potassium chloride 10 mEq 20 meq PO BID 01/01/19 05/08/22 History capsule,extended release sotalol 80 mg tablet 80 mg PO BID 01/01/19 05/08/22 History spironolactone 25 mg tablet 50 mg PO QAM 01/01/19 05/08/22 History torsemide 20 mg tablet 20 mg PO BID 01/01/19 05/08/22 History venlafaxine 150 mg 150 mg PO QAM 01/01/19 05/08/22 History capsule,extended release 24 hr (Effexor XR) aspirin 81 mg tablet,delayed 81 mg PO DAILY 01/29/22 05/08/22 History release buspirone 10 mg tablet 10 mg PO BID 05/08/22 05/08/22 History diclofenac sodium 1 % topical gel 2 g topical BID 05/08/22 05/08/22 History ezetimibe 10 mg tablet 10 mg PO DAILY 05/08/22 05/08/22 History insulin lispro 100 unit/mL 50 unit subcut TID 05/08/22 05/08/22 History subcutaneous solution (Humalog U-100 Insulin) ondansetron HCl 4 mg tablet 4 mg PO Q6 PRN Nausea 05/08/22 05/08/22 History risperidone 0.5 mg tablet 0.5 mg PO HS 05/08/22 05/08/22 History warfarin 4 mg tablet See Rx Instructions .Route .COMPLEX 05/08/22 05/08/22 History Patient History Medical History Afib 3 YR AGO DX - HX CARDIOVERSION X2 AFIB TRIGGERED BY STRESS/ANXIETY Anemia resolved Anxiety and depression FOLLOWS PSYCHIATRIST Q 3 MON CURRENT CONTROLLED AND STABLE Arthritis Asthma CONTROLLED Cirrhosis of liver Diabetes Diabetic ketoacidosis Family history of reaction to anesthesia MOM - SLOW TO WAKE UP History of blood clots approx 1 year ago > aortic clot per pt, Coumadin and ASA, dissolved per pt History of cardioversion X2 History of colon polyps BENIGN Insomnia Mitral valve prolapse >23 YR AGO, MILD - NO REQUIRED INTERVENTION - FOLLOWS CARDIO POLI LAGUERRE Seasonal allergies Severe sepsis Sleep apnea CPAP - QUIT USING 2-3 YRS AGO D/T NO CLEANING SOLUTION FOR AND WON'T USE D/T CONCERN FOR INFECTION SOB (shortness of breath) on exertion resolved per pt. Surgical History History of cholecystectomy History of colonoscopy History of endoscopy History of hernia surgery X9 History of left cataract extraction History of tonsillectomy Hx of pericardiotomy 30 yrs ago Mechanical heart valve present AORTIC VALVE - >23 YR AGO Family History Other Family history of diabetes mellitus Social History Smoking Status: Never smoker Second Hand Exposure: No; Hx Alcohol Use: No Hx Substance Use: No Preferred Language: Kazakh Communication Ability: Effective Primary Montessori Teacher Required: No Beliefs That Will Affect Care: None Current Living Situation: Spouse Feels Safe at Home: Yes Assistive Devices: Denture - Upper and Glasses Review of Systems Review of Systems: All systems reviewed & are unremarkable except as noted in HPI & below Physical Exam Physical Exam: Constitutional: Obese appearing female lying in bed. BiPAP mask in place. Eyes: Pupils are equal round and reactive to light. Conjunctivae are normal. Anicteric sclera. Ears nose, mouth and throat: No obvious deformities. BiPAP in place. Neck: Trachea is midline. Visual inspection is normal. Respiratory: Bilateral crackles. Mild tachypnea. Cardiovascular: Regular rate and rhythm. No murmurs. No edema. Gastrointestinal: Normal bowel sounds, soft, nontender and nondistended. No hepatosplenomegaly noted. Musculoskeletal: No cyanosis. Patient is able to move all extremities. Skin: No rashes, warm dry and intact. Neurologic: No obvious focal neurological deficits seen. Psychiatric: Alert and oriented x3 with a euthymic affect. Results & Data Results & Data ([facility]) Vital Signs (Past 12 Hours) Vital Signs Temp Pulse Pulse Resp BP BP Pulse Ox 05/08/22 16:00 124 H 36 H 82/59 L 100 05/08/22 15:45 126 H 30 H 102/62 97 05/08/22 15:30 128 H 39 H 108/62 96 05/08/22 15:27 42 L 42 H 94 05/08/22 15:00 127 H 18 107/62 97 05/08/22 13:41 123 H 40 H 118/73 96 05/08/22 13:20 111 H 39 H 95 05/08/22 13:16 122/90 05/08/22 13:16 193 H 29 H 95 05/08/22 13:10 192 H 41 H 96 05/08/22 13:00 189 H 37 H 96 05/08/22 12:52 185 H 39 H 93 05/08/22 13:05 191 H 38 H 96 05/08/22 12:55 185 H 20 117/84 91 05/08/22 12:55 91 05/08/22 12:54 185 H 20 91 05/08/22 12:29 36.6 C 112 H 22 127/90 97 O2 Del Method FiO2 05/08/22 16:00 BiPAP 30 05/08/22 15:45 BiPAP 30 05/08/22 15:30 BiPAP 30 05/08/22 15:27 30 05/08/22 15:00 BiPAP 30 05/08/22 13:41 BiPAP 05/08/22 13:20 05/08/22 13:16 05/08/22 13:16 05/08/22 13:10 05/08/22 13:00 05/08/22 12:52 05/08/22 13:05 30 05/08/22 12:55 Room Air 05/08/22 12:55 Room Air 05/08/22 12:54 Room Air 05/08/22 12:29 Room Air Coding Level of Care Code Critical Care 1st 30-74 mins Diagnoses Severe sepsis A41.9; R65.20 Wide-complex tachycardia I47.2 Volume overload E87.70 Warfarin anticoagulation Z79.01 Diabetic ketoacidosis E11.10 Time Spent (min) 49
[2022-05-08] MEDS: INSULIN ASPART PER UNIT SC SCH ×2 (16:35→22:29)
[2022-05-08] MEDS: NORMOSOL-R 1,000 ML IV SCH ×3 (17:13→22:51)
[2022-05-08 17:42] LABS: BUN Creatinine Ratio 19.7 (10-20); Calcium 8.1 mg/dl (8.5-10.1); Creatinine Clr Calc Pharmacy 29.2 ml/min; Est GFR (African American) 33.4 ml/min; Est GFR (Non-African American) 28.8 ml/min; Magnesium 1.5 mg/dl (1.7-2.4); Phosphorus 3.5 mg/dl (2.5-4.9); Potassium 3.8 mmol/L (3.5-5.1)
[2022-05-08] MEDS ORDERED: AMIODARONE IV BOLUS & DRIP IV STA (18:31)
[2022-05-08] MEDS ORDERED: 0.2 MICRON FILTER SET 1 EACH IV STA (18:31)
[2022-05-08] MEDS ORDERED: AMIODARONE / D5W 150 MG/100 ML BAG IV STA (18:31)
[2022-05-08] MEDS ORDERED: ALBUTEROL HFA 8 GM INHALER INH PRN (18:34)
[2022-05-08] MEDS ORDERED: AMIODARONE / D5W 360 MG/200 ML BAG IV ONE (18:41)
[2022-05-08] MEDS ORDERED: RAPID SEQUENCE INDUCTION BAG ONE (19:14)
[2022-05-08] MEDS ORDERED: SODIUM BICARB 8.4% INJ 50 MEQ/50 ML SYR IV ONE (19:15)
[2022-05-08] MEDS ORDERED: NOREPINEPHRINE/D5W 4 MG/250 ML IV ONE (19:17)
[2022-05-08] MEDS ORDERED: MIDAZOLAM HCL 125MG/250ML D5W ONE (19:35)
[2022-05-08] MEDS ORDERED: fentaNYL citrate 2,500 MCG/250 ML BAG IV ONE (19:35)
[2022-05-08] MEDS ORDERED: PROPOFOL IV EMULSION 10 MG/ML 100 ML VIAL IV ONE (19:40)
[2022-05-08] MEDS ORDERED: PROPOFOL BOLUS FROM BAG IV PRN (19:40)
--- NOTE | 2022-05-08 19:41 | Procedure Note ---
Procedure Note Date of Service May 08, 2022 Note INTUBATION PROCEDURE NOTE: Dr. Maxx Carroll A time-out was completed verifying correct patient, procedure, site, positioning. Patient was evaluated and required intubation for altered mental status and hypoxemia. Sedative agent used: 25 mg etomidate Paralysis agent used: None Emergent consent was implied given patients rapidly declining clinical status and need for airway protection. Number of attempts: 1 The patient was prepared in the appropriate fashion. Sedation was achieved utilizing 25 mg of etomidate. The patient was easily ventilated using [id number] to achieve adequate oxygenation. A 7.5 [place] endotracheal tube was placed under glide scope guidance to 22 cm at the lip. The stylette was removed and balloon was inflated with 10mL of air. Appropriate Colorimetric change was appreciated. Bilateral breath sounds were heard without air sounds in the abdomen. Post Intubation Chest X-ray ordered Frothy secretions noted from the endotracheal tube. Coding CPT Codes Resuscitation - Resuscitation: [id number] Endotracheal Intubation, emergency ([id number]) [facility] [place]Charges) Resuscitation Resuscitation: [id number] Endotracheal Intubation, emergency
[2022-05-08 19:51] LABS: iSTAT Art Bld Gas pCO2 Correct 64 mmHg (35-46); iSTAT Art Bld Gas pH Corrected 7.235 (7.35-7.45); iSTAT Arterial Blood Gas HCO3 27 meg/L (19-24); iSTAT Arterial Blood Gas pCO2 63 mmHg (35-46); iSTAT Arterial Blood Gas pH 7.24 (7.35-7.45); iSTAT Arterial Blood Gas pO2 205 mmHg (80-95); iSTAT Arterial Blood Gas pO2 C 205; iSTAT Carbon Dioxide 29 mmol/L (24-31); iSTAT FiO2 100 %; iSTAT Hematocrit 34 % (37-47); iSTAT Hemoglobin 11.6 g/dl (12.0-16.0); iSTAT Potassium 3.8 mmol/L (3.3-5.0); iSTAT Site Art Line; iSTAT Sodium 133 mmol/L (135-144)
[2022-05-08 19:56] LABS: BUN Creatinine Ratio 21.1 (10-20); Calcium 8.2 mg/dl (8.5-10.1); Creatinine Clr Calc Pharmacy 30.4 ml/min; Est GFR (Non-African American) 30.2 ml/min
--- NOTE | 2022-05-08 19:58 | XRay Report ---
SINGLE VIEW CHEST CLINICAL HISTORY: Pneumonia. Intubation. FINDINGS: An AP, portable, upright chest radiograph is compared to study performed earlier the same d ay 05/08/2022. Correlation is made with abdominal CT performed the same day 05/08/2022. An endotracheal tube has been placed. The tip of the catheter projects 3.7 cm above the patricia. An enteric tube has been placed. The tip projects below the diaphragm and is not visualized. The the patient is status po st midline sternotomy and cardiac valve surgery. The heart is enlarged. Pulmonary vascular congestion persists. There is elevation of the right hemidiaphragm. There is increasing right basilar consolida tion is compared to today's earlier examination. No large pleural effusion or pneumothorax is seen. T he skeletal structures are osteopenic. The bony thorax is grossly intact. Calcific tendinopathy is no amparo in the left shoulder. IMPRESSION: 1. Endotracheal and enteric tube placement as above. 2. Bibasilar airspace consolidation appears increased as compared to today's earlier examination. The appearance remains typical for pneumonia. 3. Cardiomegaly with pulmonary vascular congestion. ACT 112: Negative or not required by law. Electronically signed by: Oscar Sharif M.D. 05/08/2022 7:57 PM
[2022-05-08 20:00] LABS: Troponin I High Sensitivity 315.1 pg/ml (0-14)
--- NOTE | 2022-05-08 20:14 | Procedure Note ---
Procedure Note Date of Service May 08, 2022 Note Procedure: Arterial Line Placement Attending: Dr. Carroll APC: Gonzalez Reardon PA-C Indication: Hemodynamic monitoring Anesthesia: None Emergent Consent implied in the setting of clinical deterioration and need for close hemodynamic monitoring, ABG monitoring, frequent lab draws, etc. A time-out was completed verifying correct patient, procedure, site, positioning, and implant(s) or special equipment if applicable. Allens test was performed to ensure adequate perfusion. Patients LEFT wrist was prepped and draped in the usual sterile fashion. Ultrasound guidance was used to aid needle placement. A 20g Arrow arterial line was introduced into the LEFT Radial artery. Catheter was threaded, and the needle was removed with appropriate blood return. Good waveform was observed. The patient tolerated the procedure well. Confirmation of placement with ultrasound. Blood Loss: Minimal Complications: None Procedural Ultrasound Guidance: Procedure Date: 05/08/2022 Indication: Hemodynamic Monitoring, Frequent ABGs/Lab draws. Attending: Dr. Carroll APC: Gonzalez Reardon PA-C Artery Identified: YES Line confirmed in Artery with ultrasound: YES Complications: NONE Patient tolerated procedure: WELL Coding CPT Codes Tubes, Drains, and Vasc Access - Tubes, Drains, and Vasc Access: [id number] Place Catheter In Artery ([id number]) [facility] [place] Codes (Charges) Tubes, Drains, and Vasc Access Procedure 1: Tubes, Drains, and Vasc Access: [id number] Place Catheter In Artery
[2022-05-08] MEDS: PHENYLEPHRINE HCL 20 MG in DEXTROSE 5% 500 ML IV SCH ×3 (20:55→23:40)
[2022-05-08] MEDS: MAGNESIUM SULFATE / D5W 1 GM/100 ML BAG IV SCH ×2 (20:56→22:28)
[2022-05-08] MEDS: ACETAMINOPHEN 1,000 MG/100 ML VIAL IV PRN (20:56)
[2022-05-08] MEDS: fentaNYL citrate 2,500 MCG/250 ML BAG IV SCH (20:57)
[2022-05-08] MEDS: propofoL 1,000 MG/100 ML VIAL IV SCH (20:58)
[2022-05-08] MEDS ORDERED: risperiDONE 0.5 MG TABLET PO SCH (21:00)
[2022-05-08 22:16] LABS: Base Excess ABG -4.9 mEq/L (-9-1.8); HCO3 ABG 16 mmol/L (19-24); Oxygen Saturation ABG > 100.0 % (90-95); PCO2 ABG 19 mmHg (35-46); PO2 ABG 140 mmHg (80-95)
[2022-05-08 22:21] LABS: Allen Test Pos (Pos)
[2022-05-08 22:23] LABS: pH ABG 7.52 (7.35-7.45)
[2022-05-08] MEDS: ATORVASTATIN 40 MG TAB PO SCH (22:28)
[2022-05-08] MEDS: busPIRone 5 MG TAB PO SCH (22:29)
[2022-05-08] MEDS: PIPERACILLIN/TAZOBACTAM 3.375 GM in DEXTROSE 5% 100 ML IV SCH (22:31)
[2022-05-08 22:36] LABS: Calcium 5.9 mg/dl (8.5-10.1); Creatinine Clr Calc Pharmacy 42.3 ml/min; Est GFR (African American) 52.2 ml/min; Magnesium 1.4 mg/dl (1.7-2.4); Phosphorus 1.3 mg/dl (2.5-4.9); Potassium 2.9 mmol/L (3.5-5.1)
[2022-05-08] MEDS ORDERED: STAT IV STA (22:44)
[2022-05-08 22:46] LABS: iSTAT Art Bld Gas pCO2 Correct 28 mmHg (35-46); iSTAT Arterial Blood Gas HCO3 21 meg/L (19-24); iSTAT Arterial Blood Gas pCO2 26 mmHg (35-46); iSTAT Arterial Blood Gas pH 7.51 (7.35-7.45); iSTAT Arterial Blood Gas pO2 113 mmHg (80-95); iSTAT Arterial Blood Gas pO2 C 125; iSTAT Carbon Dioxide 21 mmol/L (24-31); iSTAT FiO2 40 %; iSTAT Hematocrit 30 % (37-47); iSTAT Hemoglobin 10.2 g/dl (12.0-16.0); iSTAT Potassium 3.5 mmol/L (3.3-5.0); iSTAT Site Art Line; iSTAT Sodium 127 mmol/L (135-144)
[2022-05-08] MEDS: POTASSIUM CHLORIDE / WTR 10 MEQ/100 ML PLCT IV SCH (22:58)
[2022-05-08] MEDS: NSS + 20MEQ KCL 20 MEQ/1,000 ML BAG IV SCH (22:58)
[2022-05-08] MEDS ORDERED: CALCIUM GLUCONATE 10% 2,000 MG in DEXTROSE 5% 50 ML IV ONE (23:00)
[2022-05-08] MEDS ORDERED: MAGNESIUM SULFATE / D5W 1 GM/100 ML BAG IV ONE (23:00)
[2022-05-09] MEDS: POTASSIUM CHLORIDE / WTR 10 MEQ/100 ML PLCT IV SCH ×6 (00:01→10:08)
[2022-05-09] MEDS: INSULIN REGULAR 250 UNITS in SODIUM CHLORIDE 0.9% 247.5 ML IV SCH ×3 (00:48→10:22)
[2022-05-09] MEDS: NORMOSOL-R 1,000 ML IV SCH ×2 (01:04→05:04)
[2022-05-09] MEDS: propofoL 1,000 MG/100 ML VIAL IV SCH ×4 (01:04→14:40)
[2022-05-09 01:58] LABS: Base Excess ABG -4.9 mEq/L (-9-1.8); HCO3 ABG 17 mmol/L (19-24); Oxygen Saturation ABG > 100.0 % (90-95); PCO2 ABG 24 mmHg (35-46); PO2 ABG 122 mmHg (80-95); pH ABG 7.46 (7.35-7.45)
[2022-05-09 02:04] LABS: Allen Test Pos (Pos)
[2022-05-09] MEDS: PHENYLEPHRINE HCL 20 MG in DEXTROSE 5% 500 ML IV SCH ×4 (02:09→05:45)
[2022-05-09 02:25] LABS: BUN Creatinine Ratio 23.9 (10-20); Calcium 6.7 mg/dl (8.5-10.1); Creatinine Clr Calc Pharmacy 36.6 ml/min; Est GFR (African American) 43.9 ml/min; Est GFR (Non-African American) 37.9 ml/min; Phosphorus 1.4 mg/dl (2.5-4.9); Potassium 3.5 mmol/L (3.5-5.1)
[2022-05-09] MEDS: AMIODARONE / D5W 360 MG/200 ML BAG IV SCH ×2 (03:07→13:24)
[2022-05-09] MEDS ORDERED: PHENYLEPHRINE HCL 20 MG in SODIUM CHLORIDE 0.9% 500 ML IV SCH (06:00)
[2022-05-09 06:01] LABS: Base Excess ABG -8.1 mEq/L (-9-1.8); HCO3 ABG 15 mmol/L (19-24); Oxygen Saturation ABG 99.1 % (90-95); PCO2 ABG 25 mmHg (35-46); PO2 ABG 101 mmHg (80-95); pH ABG 7.39 (7.35-7.45)
[2022-05-09] MEDS: PIPERACILLIN/TAZOBACTAM 3.375 GM in DEXTROSE 5% 100 ML IV SCH ×3 (06:04→22:38)
[2022-05-09] MEDS: NSS + 20MEQ KCL 20 MEQ/1,000 ML BAG IV SCH ×4 (06:05→19:40)
[2022-05-09 06:16] LABS: Hematocrit (blood only) 25.7 % (34.1-44.9); Hemoglobin 8.7 g/dl (12.0-16.0); Mean Corpuscular Hemoglobin 29.2 pg (25.0-34.0); Mean Corpuscular Hgb Conc 33.9 g/dL (32.0-36.0); Mean Corpuscular Volume 86.2 fL (80.0-100.0); Mean Platelet Volume 10.8 fL (9.4-12.3); Platelet Count 147 K/uL (130-400); RDW Coefficient of Variation 15.4 % (11.5-14.5); RDW Standard Deviation 48.1 fL (36.4-46.3); Red Blood Count 2.98 M/uL (3.93-5.22); White Blood Count 19.67 K/ul (4.8-10.8)
[2022-05-09 06:42] LABS: INR 6.2 (0.9-1.1)
[2022-05-09 06:45] LABS: Albumin Globulin Ratio 0.8 (0.9-2); BUN Creatinine Ratio 26.7 (10-20); Calcium 5.7 mg/dl (8.5-10.1); Creatinine Clr Calc Pharmacy 44.9 ml/min; Est GFR (Non-African American) 48.3 ml/min; Globulin 2.4 gm/dl (2.5-4.0); Magnesium 1.7 mg/dl (1.7-2.4); Phosphorus 1.2 mg/dl (2.5-4.9); Potassium 2.8 mmol/L (3.5-5.1); Total Protein 4.4 gm/dl (6.0-8.3)
[2022-05-09 06:46] LABS: Allen Test Pos (Pos)
[2022-05-09 06:50] LABS: Basophils # (auto) 0.07 K/uL (0-0.2); Basophils % (auto) 0.4 %; Echinocytes 2+; Eosinophils # (auto) 0.03 K/uL (0-0.50); Eosinophils % (auto) 0.2 %; Immature Granulocytes # (auto) 0.07 K/uL (0.00-0.02); Immature Granulocytes % (auto) 0.4 %; Lymphocytes % (auto) 5.6 %; Monocytes % (auto) 3.1 %; Neutrophils % (auto) 90.3 %
[2022-05-09] MEDS ORDERED: STAT IV STA ×2 (06:55→07:24)
[2022-05-09] MEDS: PHENYLEPHRINE HCL 40 MG in SODIUM CHLORIDE 0.9% 500 ML IV SCH ×6 (07:07→14:40)
[2022-05-09] MEDS ORDERED: CALCIUM GLUCONATE 10% 2,000 MG in DEXTROSE 5% 50 ML IV ONE ×2 (07:15→07:24)
[2022-05-09] MEDS ORDERED: SODIUM PHOSPHATE 3 MMOL/1 ML INFUSION IV STA (07:24)
[2022-05-09] MEDS ORDERED: SODIUM PHOSPHATE 30 MMOL in SODIUM CHLORIDE 0.9% 500 ML IV ONE (07:45)
--- NOTE | 2022-05-09 08:11 | XRay Report ---
XR chest 1V portable CLINICAL HISTORY: f/u COMPARISON STUDY: Chest radiograph May 08, 2022. FINDINGS: Tip of endotracheal tube is 3.5 cm above the patricia. Tip of nasogastric tube is at least wi thin the body of the stomach. There is no pneumothorax or pleural effusion. Cardiomegaly is again not ed. Prosthetic cardiac valve is noted as well as median sternotomy wires and mediastinal surgical cli ps. Interstitial thickening and bilateral opacities, including right basilar consolidation have progr essed. IMPRESSION: 1. Satisfactory positioning of lines and tubes. 2. Persistent right basilar consolidation suggestive of pneumonia. 3. Interval increase in interstitial thickening which could reflect superimposed pulmonary edema. ACT 112: Negative or not required by law. Electronically signed by: Minor Hinson M.D. 05/09/2022 8:09 AM
--- NOTE | 2022-05-09 08:15 | Critical Care Progress Note ---
Date of Service May 09, 2022 Assessment & Plan (1) Diabetic ketoacidosis: (2) Severe sepsis: (3) Acute encephalopathy: (4) Pneumonia: (5) Wide-complex tachycardia: (6) Volume overload: (7) Warfarin anticoagulation: Plan 66-year-old female with a history of mechanical aortic valve on warfarin, GERD, hypertension, diabetes, diastolic heart failure, hyperlipidemia and anxiety presented to the hospital due to shortness of breath and lethargy. She was found to be in DKA with wide-complex tachycardia and lactic acidosis. Neurologic: Metabolic encephalopathy from diabetic ketoacidosis and pneumonia. We will check ammonia level given the history of cirrhosis. Pulmonary: Patient with right lower lobe infiltrate likely due to aspiration pneumonia. Patient currently on the vent. Continue plan protective ventilation strategy. Minimal vent settings at this time. ABG demonstrates compensated metabolic acidosis. Continue daily spontaneous awakening trials and spontaneous breathing trials. We will obtain a sputum culture today. Cardiovascular: Patient with history of mechanical aortic valve on warfarin. We will hold warfarin at this time due to elevated INR. Judicious use of fluids and diuretics. Cardiology following the patient. Patient started on amiodarone infusion yesterday due to hypotension from septic shock. Diltiazem discontinued. Trend troponins. Echo to be obtained. Maintain mean arterial pressures above 65 mmHg. Continue to titrate vasopressors as able. Gastrointestinal: Protonix. NPO. CT abdomen results reviewed with no acute findings. Renal: Patient with lactic acidosis and DANDRE. Continue fluid resuscitation. Continue DKA protocol. Replace electrolytes. Infectious disease: Continue vancomycin and Zosyn. Blood cultures and urine cultures pending. Patient spiking fevers with elevated Pro-Timothy. Septic shock likely. Hematologic: Supratherapeutic INR. Continue to hold warfarin. Endocrine: TSH normal. DKA protocol as above. Insulin infusion. VTE prophylaxis: Therapeutic INR. Recheck INR this evening. CODE STATUS: Full Family at bedside: None Disposition: ICU Discussed with bedside nurse. I have personally spent 42 minutes of critical care time in the direct management of this patient. This is a life/limb threatening event. This includes time spent evaluating patient, direct bedside care, chart review, placing orders, interpretation of diagnostic studies, discussion with consultants, patient, and family members, as well as other required patient management activities. This time is exclusive of all separately billable procedures, and teaching time and separate from and in addition to any other critical care service time. Thank you for allowing us to participate in the care of this patient. Admission and Anticipated Discharge Date Admission Date: May 08, 2022 Subjective Patient seen and examined. She is currently on a fentanyl and propofol infusion. She was intubated last night. She remains on low doses of Levophed. She is also on amiodarone infusion. She is heavily sedated. Review of systems is unobtainable. Physical Exam Physical Exam: Constitutional: Obese female who is intubated. Unresponsive to commands. Eyes: Pupils are equal round and reactive to light. Conjunctivae are normal. Anicteric sclera. Ears nose, mouth and throat: ET tube in place. Neck: Trachea is midline. Visual inspection is normal. Respiratory: Coarse rhonchi bilaterally. Tachypneic. Cardiovascular: Mild systolic murmur. Tachycardic. Trace edema. Gastrointestinal: Normal bowel sounds, soft, nontender and nondistended. No hepatosplenomegaly noted. Musculoskeletal: Extremities intact. Skin: No rashes, warm dry and intact. Neurologic: No obvious focal neurological deficits seen. Psychiatric: Unable to assess. Results & Data Results & Data ([facility]) Vital Signs (Past 12 Hours) Vital Signs Temp Pulse Resp BP Pulse Ox FiO2 05/09/22 07:40 117 H 24 97 40 05/09/22 06:00 38.6 C H 113 H 24 94/65 L 98 05/09/22 05:45 38.6 C H 115 H 24 75/56 L 98 05/09/22 05:30 38.6 C H 112 H 24 90/63 L 98 05/09/22 05:00 38.6 C H 112 H 24 99 05/09/22 04:31 38.6 C H 116 H 24 77/53 L 98 05/09/22 04:30 38.6 C H 116 H 24 98 05/09/22 04:00 38.5 C H 115 H 24 99 05/09/22 03:30 38.5 C H 113 H 24 100 05/09/22 03:00 38.4 C H 113 H 24 99 05/09/22 02:30 38.4 C H 112 H 24 100 05/09/22 02:10 38.3 C H 115 H 24 62/45 L 100 05/09/22 02:00 38.3 C H 113 H 24 66/48 L 100 05/09/22 04:00 40 05/09/22 03:35 115 H 24 99 40 05/08/22 20:13 38.9 C H 133 H 23 78/65 L 93 05/08/22 21:15 39.0 C H 118 H 30 H 97/73 L 100 05/08/22 21:00 39.0 C H 120 H 30 H 110/76 99 05/08/22 20:45 39.1 C H 124 H 30 H 108/80 98 05/08/22 20:30 39.0 C H 128 H 30 H 80/56 L 94 05/08/22 20:18 38.9 C H 127 H 30 H 68/58 L 93 05/08/22 22:45 38.6 C H 111 H 24 93/67 L 100 05/08/22 22:30 38.8 C H 117 H 30 H 93/64 L 100 05/08/22 22:15 38.8 C H 117 H 30 H 79/61 L 100 05/08/22 22:00 38.9 C H 119 H 30 H 80/57 L 100 05/08/22 21:45 38.9 C H 120 H 30 H 81/58 L 99 05/08/22 21:30 38.9 C H 119 H 30 H 87/64 L 100 05/08/22 21:28 38.9 C H 119 H 30 H 100 05/09/22 01:50 38.3 C H 114 H 24 05/09/22 01:50 62/47 L 05/09/22 01:46 38.3 C H 113 H 24 05/09/22 01:46 70/54 L 05/09/22 01:40 38.3 C H 96 H 24 05/09/22 01:40 77/60 L 05/09/22 01:35 70/54 L 05/09/22 01:35 38.3 C H 112 H 24 05/09/22 01:30 38.3 C H 108 H 24 05/09/22 01:30 77/49 L 05/09/22 01:20 38.2 C H 96 H 24 05/09/22 01:20 75/55 L 05/09/22 01:10 38.2 C H 97 H 24 05/09/22 01:10 70/52 L 05/09/22 01:05 76/52 L 05/09/22 01:05 38.2 C H 100 H 24 100 05/09/22 01:00 38.2 C H 119 H 24 100 05/09/22 01:00 78/53 L 05/09/22 00:56 38.2 C H 109 H 24 100 05/09/22 00:56 74/53 L 05/09/22 00:50 38.2 C H 98 H 24 100 05/09/22 00:50 73/52 L 05/09/22 00:45 72/51 L 05/09/22 00:45 38.2 C H 97 H 24 100 05/09/22 00:40 38.2 C H 111 H 24 99 05/09/22 00:40 73/50 L 05/09/22 00:35 74/55 L 05/09/22 00:35 38.2 C H 114 H 24 99 05/09/22 00:30 38.3 C H 105 H 24 99 05/09/22 00:30 82/56 L 05/09/22 00:20 38.3 C H 116 H 24 99 05/09/22 00:20 74/48 L 05/09/22 00:15 68/51 L 05/09/22 00:15 38.3 C H 115 H 24 99 05/09/22 00:10 38.3 C H 105 H 24 99 05/09/22 00:00 38.4 C H 115 H 24 99 05/09/22 00:00 70/50 L 05/08/22 23:50 38.4 C H 114 H 24 99 05/08/22 23:45 38.4 C H 113 H 24 99 05/08/22 23:45 71/52 L 05/08/22 23:40 38.5 C H 112 H 24 99 05/08/22 23:30 38.5 C H 106 H 24 99 05/08/22 23:30 102/66 05/08/22 23:20 38.5 C H 109 H 24 98 05/08/22 23:15 94/66 L 05/08/22 23:15 38.6 C H 114 H 24 99 05/08/22 23:10 38.6 C H 111 H 24 99 05/08/22 23:00 38.6 C H 111 H 24 99 05/08/22 23:00 96/67 L 05/08/22 22:50 38.6 C H 111 H 24 99 05/09/22 00:00 40 05/09/22 00:00 112 H 05/08/22 22:40 24 05/08/22 22:35 116 H 30 H 99 40 Coding Level of Care Code Critical Care 1st 30-74 mins Diagnoses Diabetic ketoacidosis E11.10 Severe sepsis A41.9; R65.20 Acute encephalopathy G93.40 Pneumonia J18.9 Wide-complex tachycardia I47.2 Volume overload E87.70 Warfarin anticoagulation Z79.01 Time Spent (min) 42
[2022-05-09 08:19] LABS: BUN Creatinine Ratio 24.7 (10-20); Calcium 7.2 mg/dl (8.5-10.1); Creatinine Clr Calc Pharmacy 34.7 ml/min; Est GFR (African American) 41.1 ml/min; Est GFR (Non-African American) 35.4 ml/min; Potassium 3.5 mmol/L (3.5-5.1)
[2022-05-09 08:41] LABS: Troponin I High Sensitivity 550.8 pg/ml (0-14)
[2022-05-09] MEDS ORDERED: ASPIRIN 81 MG ECTAB PO SCH (09:00)
[2022-05-09] MEDS ORDERED: SODIUM CHLORIDE 3 % 150 ML IV ONE (09:00)
[2022-05-09 09:03] LABS: Phosphorus 1.5 mg/dl (2.5-4.9)
[2022-05-09 09:06] LABS: Appearance Urine Clear (Clear); Bilirubin Urine Negative (Negative); Blood Urine Negative (Negative); Color Urine Yellow; Glucose Urine UA Negative (Negative); Ketones Urine Negative (Negative); Leukocyte Esterase Urine Negative (Negative); Nitrite Urine Negative (Negative); Protein Urine Negative (Negative); Urobilinogen Urine Negative (Negative)
[2022-05-09] MEDS ORDERED: POTASSIUM PHOS 3 MMOL/1 ML INFUSION IV STA (09:07)
[2022-05-09] MEDS ORDERED: STAT IV Infusion **Titration per Protocol STA ×3 (09:10→22:20)
[2022-05-09] MEDS ORDERED: MIDAZOLAM HCL 125 MG/250 ML BAG IV SCH (09:15)
[2022-05-09] MEDS: VENLAFAXINE HCL XR 150 MG CAPXR PO SCH (09:32)
[2022-05-09] MEDS: INSULIN ASPART PER UNIT SC SCH ×4 (09:36→20:31)
[2022-05-09 09:46] LABS: Hematocrit (blood only) 31.6 % (34.1-44.9); Hemoglobin 10.7 g/dl (12.0-16.0); Mean Corpuscular Hemoglobin 28.9 pg (25.0-34.0); Mean Corpuscular Hgb Conc 33.9 g/dL (32.0-36.0); Mean Corpuscular Volume 85.4 fL (80.0-100.0); Mean Platelet Volume 10.3 fL (9.4-12.3); Nucleated RBC # (auto) 0.02 K/uL (0-0); Nucleated RBC % (auto) 0.1 %; Platelet Count 197 K/uL (130-400); RDW Coefficient of Variation 15.7 % (11.5-14.5); RDW Standard Deviation 48.7 fL (36.4-46.3); White Blood Count 25.73 K/ul (4.8-10.8)
[2022-05-09 09:53] LABS: Urine Chloride < 15 mmol/L; Urine Sodium 13 mmol/L
[2022-05-09 10:09] LABS: Basophils # (auto) 0.13 K/uL (0-0.2); Basophils % (auto) 0.5 %; Dohle Bodies 1+; Eosinophils # (auto) 0.07 K/uL (0-0.50); Eosinophils % (auto) 0.3 %; Immature Granulocytes # (auto) 0.15 K/uL (0.00-0.02); Immature Granulocytes % (auto) 0.6 %; Lymphocytes # (auto) 1.55 K/uL (1.2-3.4); Monocytes # (auto) 1.18 K/uL (0.24-0.82); Monocytes % (auto) 4.6 %; Neutrophils # (auto) 22.65 K/uL (1.4-6.5); Polychromasia 1+; Toxic Granulation 1+
[2022-05-09] MEDS: busPIRone 5 MG TAB PO SCH ×2 (10:09→23:11)
[2022-05-09] MEDS: ACETAMINOPHEN 1,000 MG/100 ML VIAL IV PRN ×2 (10:10→18:51)
[2022-05-09] MEDS ORDERED: PANTOprazole 40 MG in SYRINGE 0 ML IV SCH (11:00)
[2022-05-09] MEDS ORDERED: POTASSIUM PHOSPHATE 30 MMOL in SODIUM CHLORIDE 0.9% 500 ML IV ONE (11:00)
--- NOTE | 2022-05-09 11:33 | Electrocardiogram Report ---
Test Reason : Blood Pressure : / mmHG Vent. Rate : 182 BPM Atrial Rate : 182 BPM P-R Int : 000 ms QRS Dur : 130 ms QT Int : 282 ms P-R-T Axes : 000 -58 114 degrees QTc Int : 490 ms Wide QRS tachycardia Left axis deviation Non-specific intra-ventricular conduction block T wave abnormality, consider lateral ischemia Abnormal ECG When compared with ECG of 05-JAN-2019 12:44, Wide QRS tachycardia has replaced Sinus rhythm Vent. rate has increased BY 106 BPM The QRS morphology is the same as the previous EKG in NSR suggesting this is a superventricular rhyth m; there may be a retrograde P wave in V2 Confirmed by Santhosh Boyce ([id number]) on 05/09/2022 11:32:54 AM Referred By: REFERRED SELF Confirmed By:Santhosh Boyce
--- NOTE | 2022-05-09 11:38 | Electrocardiogram Report ---
Test Reason : Blood Pressure : / mmHG Vent. Rate : 124 BPM Atrial Rate : 113 BPM P-R Int : 000 ms QRS Dur : 128 ms QT Int : 356 ms P-R-T Axes : 000 -25 142 degrees QTc Int : 511 ms Atrial fibrillation with rapid ventricular response Non-specific intra-ventricular conduction block T wave abnormality, consider lateral ischemia Abnormal ECG When compared with ECG of 08-MAY-2022 12:45, (unconfirmed) Atrial fibrillation has replaced Wide QRS tachycardia Confirmed by Santhosh Boyce ([id number]) on 05/09/2022 11:37:49 AM Referred By: REFERRED SELF Confirmed By:Santhosh Boyce
--- NOTE | 2022-05-09 11:43 | Electrocardiogram Report ---
Test Reason : Blood Pressure : / mmHG Vent. Rate : 117 BPM Atrial Rate : 117 BPM P-R Int : 000 ms QRS Dur : 124 ms QT Int : 338 ms P-R-T Axes : 000 -35 159 degrees QTc Int : 471 ms Poor data quality, interpretation may be adversely affected Atrial flutter Left axis deviation Non-specific intra-ventricular conduction delay Nonspecific T wave abnormality Abnormal ECG When compared with ECG of 08-MAY-2022 13:48, (unconfirmed) This tracing looks more like atrial flutter than Afib Nonspecific T wave abnormality now evident in Inferior leads Confirmed by Santhosh Boyce ([id number]) on 05/09/2022 11:43:38 AM Referred By: REFERRED SELF Confirmed By:Santhosh Boyce
[2022-05-09 11:45] LABS: Calcium 7.2 mg/dl (8.5-10.1); Creatinine Clr Calc Pharmacy 35.6 ml/min; Est GFR (African American) 42.4 ml/min; Est GFR (Non-African American) 36.6 ml/min; Potassium 3.9 mmol/L (3.5-5.1)
--- NOTE | 2022-05-09 11:58 | Procedure Note ---
Procedure Note Date of Service May 09, 2022 Note FEMORAL CENTRAL LINE PROCEDURE NOTE: Procedure: Femoral Central Line Placement Indication: Central Drug Administration, Poor Venous Access, Multiple Lab Draws Necessary, etc. Anesthesia: Versed and fentanyl/8 mm lidocaine 1% Emergent consent was implied given the patient's hemodynamic instability and need for vasoactive medications. A time-out was completed verifying correct patient, procedure, site, positioning, and implants(s) or special equipment if applicable. Patients right groin was cleansed and draped in the typical sterile fashion using Chloraprep. The Femoral Vein and Femoral Artery were identified using ultrasound. The superficial tissue was anesthetized using 8 mL of 1% lidocaine without epinephrine under direct visualization with the ultrasound. After adequate anesthetization was achieved, the Femoral Vein was cannulated under direct ultrasound guidance using an introducer needle on a syringe. Good venous blood return was maintained prior to removal of syringe from introducer needle. Using Seldinger Technique, a guide wire was advanced through the introducer needle without resistance. The introducer needle was removed and ultrasound images were obtained of the guide wire within the Femoral Vein and saved to the patients medical record. A small incision was made in penetrating fashion at the guide wire insertion site utilizing an 11 blade scalpel. The dilator was advanced to the vessel without resistance. The dilator was exchanged for the triple lumen catheter which was advanced into the vessel without resistance. The guide wire was removed intact from the catheter without issue. Claves were placed on each catheter tip with confirmation of good blood flow from each lumen. Each port was easily flushed with sterile saline. The catheter was placed at the hub and sutured in place. BioPatch was applied to the catheter and a sterile Tegaderm dressing was applied over the catheter with careful attention to sterility. Patient tolerated procedure well. No immediate complications were met. Images obtained are saved for permanent record. Procedural Ultrasound Guidance utilized. Coding CPT Codes Tubes, Drains, and Vasc Access - Tubes, Drains, and Vasc Access: [id number] Place catheter in vein superior or inferior vena cava ([id number]) Tubes, Drains, and Vasc Access - Tubes, Drains, and Vasc Access: [id number] Ultrasound Guidance For Vascular ([id number]) [facility] [place] Procedure Codes (Charges) Tubes, Drains, and Vasc Access Procedure 1: Tubes, Drains, and Vasc Access: [id number] Place catheter in vein superior or inferior vena cava Procedure 2: Tubes, Drains, and Vasc Access: [id number] Ultrasound Guidance For Vascular
[2022-05-09] MEDS ORDERED: POTASSIUM CHLORIDE 20 MEQ/15 ML UDC PO STA (12:12)
--- NOTE | 2022-05-09 13:55 | Pharmacy Report ---
Pharmacy Glycemic Short Note 2 - Date of Service May 09, 2022 - Glycemic Short BSG Results (Last 24 hours): 05/08/22 05/08/22 05/08/22 14:07 15:37 15:58 Glucose 382 H* POC Glucose 411 H* 355 H* POC Glucose (other) 05/08/22 05/08/22 05/08/22 17:00 17:08 18:27 Glucose 351 H* POC Glucose 327 H* 322 H* POC Glucose (other) 05/08/22 05/08/22 05/08/22 18:59 19:56 21:36 Glucose 296 H POC Glucose 293 H POC Glucose (other) 317 H 05/08/22 05/08/22 05/09/22 22:04 23:07 00:22 Glucose 273 H POC Glucose POC Glucose (other) 380 H* 353 H* 05/09/22 05/09/22 05/09/22 01:51 01:54 03:21 Glucose 359 H* POC Glucose POC Glucose (other) 353 H* 379 H* 05/09/22 05/09/22 05/09/22 04:24 05:26 05:38 Glucose 326 H* POC Glucose POC Glucose (other) 358 H* 389 H* 05/09/22 05/09/22 05/09/22 06:15 07:34 07:42 Glucose 232 H POC Glucose POC Glucose (other) 324 H 243 H 05/09/22 05/09/22 05/09/22 08:31 09:42 10:35 Glucose POC Glucose POC Glucose (other) 209 H 163 H 139 H 05/09/22 05/09/22 05/09/22 11:14 11:43 13:07 Glucose 120 H POC Glucose POC Glucose (other) 114 H 114 H OUTPATIENT ANTIDIABETIC REGIMEN: * Lantus 60 units Qam, lispro 50 units tid, metformin ASSESSMENT: * 66 year old admitted with DKA, started on insulin infusion on admission. Concerns for infection, receiving abx. Intubated yesterday. Insulin drip running at very high rates. Phenylephrine drip changed to normal saline diluent this morning. Insulin drip up to 28 units/hr overnight, down to 17 units/hr now. * Reasonable to continue insulin drip due to severe status of patient and changing insulin needs PLAN FOR INPATIENT GLYCEMIC CONTROL: * Hold outpatient oral diabetes medications * Continue insulin infusion
--- NOTE | 2022-05-09 14:06 | Cardiology Progress Note ---
Date of Service May 09, 2022 Assessment & Plan (1) Wide-complex tachycardia: (2) Cirrhosis: (3) Congestive heart failure due to valvular disease: (4) Warfarin anticoagulation: (5) Atrial flutter: (6) H/O mechanical aortic valve replacement: (7) H/O pericardiectomy: Plan Suspect wide complex tachycardia is SVT with rate related LBBB hx of intermittent LBBB Events of last p.m. reviewed. Patient is currently in relatively well rate controlled atrial fibrillation on amiodarone drip. Supratherapeutic INR. No changes from a cardiac standpoint, continue amiodarone drip Admission and Anticipated Discharge Date Admission Date: May 08, 2022 Subjective Patient seen and examined, chart reviewed. Currently intubated, sedated, on pressors and amiodarone drip. Telemetry reviewed: Atrial fibrillation in the 100s. Review of Systems Review of Systems: Unobtainable due to endotracheal tube Physical Exam Physical Exam: General: Intubated and sedated. No acute distress. HEENT: Normocephalic, atraumatic. Pupils equal, round and reactive to light and accommodation. Extraocular muscles are intact. Anicteric sclera. Moist mucous membranes. Neck: No JVD. No bruit. Cardiovascular: irregularly irregular, unable to appreciate murmur, rub or gallop. Pulmonary: Clear to auscultation bilaterally. No rales, rhonchi, or wheezing. Abdomen: Bowel sounds x 4, soft. No rebound, guarding or tenderness. No organomegaly. Extremities: No clubbing, cyanosis or edema. +2 pedal pulses bilaterally. Skin: Warm and dry. Results & Data ([facility]) Vital Signs (Past 12 Hours) Vital Signs Temp Pulse Resp BP Pulse Ox FiO2 05/09/22 11:36 111 H 24 99 40 05/09/22 07:40 117 H 24 97 40 05/09/22 06:00 38.6 C H 113 H 24 94/65 L 98 05/09/22 05:45 38.6 C H 115 H 24 75/56 L 98 05/09/22 05:30 38.6 C H 112 H 24 90/63 L 98 05/09/22 05:00 38.6 C H 112 H 24 99 05/09/22 04:31 38.6 C H 116 H 24 77/53 L 98 05/09/22 04:30 38.6 C H 116 H 24 98 05/09/22 04:00 38.5 C H 115 H 24 99 05/09/22 03:30 38.5 C H 113 H 24 100 05/09/22 03:00 38.4 C H 113 H 24 99 05/09/22 02:30 38.4 C H 112 H 24 100 05/09/22 02:10 38.3 C H 115 H 24 62/45 L 100 05/09/22 04:00 40 05/09/22 03:35 115 H 24 99 40
--- NOTE | 2022-05-09 14:14 | Hospitalist Progress Note ---
Date of Service May 09, 2022 Assessment & Plan (1) Severe sepsis: (2) Pneumonia: (3) Wide-complex tachycardia: (4) Diabetic ketoacidosis: (5) DANDRE (acute kidney injury): (6) Cirrhosis of liver: (7) Mechanical heart valve present: (8) Supratherapeutic INR: (9) Pulmonary edema: Plan 66 year old female with h/o chronic diastolic CHF, Cirrhosis of liver, mechanical aortic valve on coumadin, paroxysmal atrial flutter, DM-2 on insulin, who presented to the ED 05/08 with complaint of not feeling well for 3 days and hadn't taken any of her meds for 3 days. She was found to have DKA with severe sepsis with PNA, wide complex tachycardia, pulmonary edema, respiratory distress, DNADRE, lactic acidosis. She was admitted to ICU. CT A/P There is dense right lower lobe consolidation typical for pneumonia. Clinical correlation will be required and radiographic follow-up to resolution is recommended. 2. The liver is cirrhotic in morphology and heterogeneous in attenuation. 3. Splenomegaly and trace abdominopelvic ascites indicate portal hypertension. 4. There is a 6.7 cm simple cystic lesion in the right adnexa, likely related to the right ovary. This has significantly increased in size dating back to 2018. Nonemergent pelvic ultrasound and gynecology follow-up is recommended. 5. Additional findings as above. Severe sepsis with PNA with septic shock- Met sepsis criteria with leucocytosis, tachycardia, tachypnea and lactic acidosis. CT with RLL PNA. - On empiric antibiotics, pressors and ventilation management per self propelled dredge operator DKA- BG 400s, bicarb 15, AG 21. She had not taken any meds as well as insulin for 3 days METROLOGIST. DKA in setting of acute illness and medication non compliance. - S/p DKA protocol with insulin drip with resolution of AG. Further management per self propelled dredge operator and glycemic pharmacist. - family living educator consulted Wide complex tachycardia- seen by cardio- suspected SVT with rate related LBBB per cardio - started on cardizem drip but had hypotension and now on iv amiodarone and pressors. Management per cardiology Acute on chronic diastolic CHF- CXR with cardiomegaly with CHF and pulmonary edema. BNP elevated. Diuresis per self propelled dredge operator/cardiology DANDRE- Baseline Cr of 0.7-0.8. On admission, Cr 1.9->1.5. In setting of sepsis and hemodynamic instability. Avoid nephrotoxics. Recheck in am. Elevated troponin- trop trend flat, mildly elevated. Due to demand ischemia from acute illness as above. Mechanical AV on coumadin with supratherapeutic INR- INR 3.8->6.2. Continue to hold coumadin. Check INR Cirrhosis of liver with splenomegaly and encephalopathy- Ammonia 99, trace ascites. Continue lactulose Hyponatremia- pseudohyponatremia in setting of high BG. Hypophosphatemia- Repleted. recheck in am Right adnexal cystic lesion- 6.[address], increased from 2018. Recommended non emergent pelvic US and insurance consultant follow up. DVT ppx- INR 6.2. Dispo- Critically ill. ICU management. Updated at bedside Admission and Anticipated Discharge Date Admission Date: May 08, 2022 Subjective Intubated, sedated and mechanically ventilated, hence ROS limited. Continues with persistent fever. Physical Exam Physical Exam: General: Intubated, sedated and ventilated. HEENT: PERRL Chest: Coarse breath sounds anteriorly CVS: Tachycardic, no murmur Abdomen: Soft, normal bowel sounds Neuro: Sedated. Extremities: No edema Results & Data Results & Data [facility]) Vital Signs (Past 12 Hours) Vital Signs Temp Pulse Resp BP Pulse Ox FiO2 05/09/22 11:36 111 H 24 99 40 05/09/22 07:40 117 H 24 97 40 05/09/22 06:00 38.6 C H 113 H 24 94/65 L 98 05/09/22 05:45 38.6 C H 115 H 24 75/56 L 98 05/09/22 05:30 38.6 C H 112 H 24 90/63 L 98 05/09/22 05:00 38.6 C H 112 H 24 99 05/09/22 04:31 38.6 C H 116 H 24 77/53 L 98 05/09/22 04:30 38.6 C H 116 H 24 98 05/09/22 04:00 38.5 C H 115 H 24 99 05/09/22 03:30 38.5 C H 113 H 24 100 05/09/22 03:00 38.4 C H 113 H 24 99 05/09/22 02:30 38.4 C H 112 H 24 100 05/09/22 02:10 38.3 C H 115 H 24 62/45 L 100 05/09/22 02:00 38.3 C H 113 H 24 66/48 L 100 05/09/22 04:00 40 05/09/22 03:35 115 H 24 99 40 Laboratory Results Short CBC 05/09/22 05/09/22 Range/Units 05:38 09:38 WBC 19.67 H 25.73 H (4.8-10.8) K/ul Hgb 8.7 L D 10.7 L (12.0-16.0) g/dl Hct 25.7 L 31.6 L (34.1-44.9) % Plt Count 147 197 (130-400) K/uL BMP 05/08/22 05/08/22 05/08/22 15:37 17:00 18:59 Sodium 127 L 127 L 128 L Potassium 4.1 3.8 4.0 Chloride 93 L 96 L 96 L Carbon Dioxide 17 L 18 L 20 L BUN 36 H 35 H 36 H Creatinine 1.88 H 1.78 H 1.71 H Glucose 382 H* 351 H* 296 H Calcium 8.7 8.1 L 8.2 L 05/08/22 05/09/22 05/09/22 22:04 01:51 05:38 Sodium 131 L 123 L 124 L Potassium 2.9 L D 3.5 D 2.8 L Chloride 104 97 L 100 Carbon Dioxide 17 L 18 L 16 L BUN 32 H 34 H 31 H Creatinine 1.23 H D 1.42 H 1.16 Glucose 273 H 359 H* 326 H* Calcium 5.9 L* D 6.7 L 5.7 L* 05/09/22 05/09/22 07:42 11:14 Sodium 121 L 124 L Potassium 3.5 D 3.9 Chloride 94 L 98 Carbon Dioxide 20 L 18 L BUN 37 H 35 H Creatinine 1.50 H D 1.46 H Glucose 232 H 120 H Calcium 7.2 L 7.2 L Liver Function 05/09/22 Range/Units 05:38 Total Bilirubin 1.0 D (0.2-1.0) mg/dl AST 22 (13-39) U/L ALT 14 (7-52) U/L Alkaline Phosphatase 47 (34-104) U/L Albumin 2.0 L (3.4-5.0) gm/dl Urine 05/09/22 Range/Units 09:00 Urine Color Yellow Urine Appearance Clear (Clear) Urine pH 5.0 (4.5-7.5) Ur Specific [place] 1.020 (1.000-1.030) Urine Protein Negative (Negative) Urine Glucose (UA) Negative (Negative) Diagnostic Findings Chest X-Ray 05/09/22 07:00 XR chest 1V portable CLINICAL HISTORY: f/u COMPARISON STUDY: Chest radiograph May 08, 2022. FINDINGS: Tip of endotracheal tube is 3.5 cm above the patricia. Tip of nasogastric tube is at least within the body of the stomach. There is no pneumothorax or pleural effusion. Cardiomegaly is again noted. Prosthetic cardiac valve is noted as well as median sternotomy wires and mediastinal surgical clips. Interstitial thickening and bilateral opacities, including right basilar consolidation have progressed. IMPRESSION: 1. Satisfactory positioning of lines and tubes. 2. Persistent right basilar consolidation suggestive of pneumonia. 3. Interval increase in interstitial thickening which could reflect superimposed pulmonary edema. ACT 112: Negative or not required by law. Electronically signed by: Minor Hinson M.D. 05/09/2022 8:09 AM Medications Administered Current Inpatient Medications Albuterol (Albuterol Hfa 8 Gm Inhaler) 2 puffs INH Q4 PRN PRN Reason: Shortness Of Breath Or Wheezin Stop: 06/07/22 18:33 Aspirin (Aspirin 81 Mg Ectab) 81 mg PO DAILY [facility] Stop: 06/08/22 08:59 Last Admin: 05/09/22 09:32 Dose: Not Given Atorvastatin Calcium (Atorvastatin 40 Mg Tab) 80 mg PO HS [facility] Stop: 06/07/22 20:59 Last Admin: 05/08/22 22:28 Dose: 80 mg Buspirone HCl (Buspirone 5 Mg Tab) 10 mg PO BID [facility] Stop: 06/07/22 20:59 Last Admin: 05/09/22 10:09 Dose: 10 mg Fentanyl Citrate (Fentanyl Bolus From Bag) 50 mcg IV Q60M PRN PRN Reason: Pain or Agitation Stop: 05/22/22 19:39 Insulin Human Regular 250 (units/ Sodium Chloride) 250 mls @ 0 mls/hr IV .Q0M [facility]; Protocol Stop: 06/07/22 13:44 Last Titration: 05/09/22 12:03 Dose: 0 units/hr, 0 mls/hr Amiodarone HCl/Dextrose (Nexterone / D5w) 360 mg in 200 mls @ 16.667 mls/hr IV .Q12H [facility] Stop: 06/08/22 00:44 Last Admin: 05/09/22 13:24 Dose: 0.5 mg/min, 16.7 mls/hr Piperacillin Sod/Tazobactam (Sod 3.375 gm/ Dextrose) 115 mls @ 28.75 mls/hr IV Q8H [facility]; Protocol Stop: 05/15/22 21:59 Last Infusion: 05/09/22 09:33 Dose: Infused Propofol (Diprivan) 1,000 mg in 100 mls @ 10.176 mls/hr IV .Q9H50M [facility]; Protocol Stop: 05/11/22 19:44 Last Titration: 05/09/22 09:47 Dose: Infused Acetaminophen (Ofirmev) 1,000 mg in 100 mls @ 400 mls/hr IV Q8H PRN PRN Reason: Fever/Mild Pain (Pain 1,2,3) Stop: 05/11/22 19:39 Last Infusion: 05/09/22 10:30 Dose: Infused Fentanyl Citrate (Fentanyl Citrate) 2,500 mcg in 250 mls @ 10 mls/hr IV .Q25H [facility]; Protocol Stop: 05/22/22 19:44 Last Titration: 05/09/22 07:25 Dose: 100 mcg/hr, 10 mls/hr Potassium Chloride/Sodium Chloride (Normal Saline W/20 Meq Kcl) 20 meq in 1,000 mls @ 200 mls/hr IV .Q5H [facility]; Protocol Stop: 06/08/22 07:29 Last Admin: 05/09/22 08:10 Dose: 200 mls/hr Pantoprazole Sodium 40 mg/ (Syringe) 10 mls @ 5 mls/min IV BID [facility] Stop: 06/08/22 20:59 Midazolam HCl (Versed) 125 mg in 250 mls @ 2 mls/hr IV .Q96H [facility]; Protocol Stop: 06/08/22 09:14 Last Admin: 05/09/22 09:46 Dose: 1 mg/hr, 2 mls/hr Potassium Phosphate 30 mmol/ (Sodium Chloride) 510 mls @ 88 mls/hr IV ONE ONE Stop: 05/09/22 16:47 Last Admin: 05/09/22 12:50 Dose: Not Given Phenylephrine HCl 80 mg/ (Sodium Chloride) 508 mls @ 155.082 mls/hr IV .Q3H17M [facility]; Protocol Stop: 06/08/22 13:29 Insulin Aspart (Insulin Aspart Per Unit) 0 units SC ACHS [facility] Stop: 06/07/22 16:29 Last Admin: 05/09/22 12:50 Dose: Not Given Lactulose (Lactulose Syrup 20 Gm/30 Ml Udc) 20 gm PO TID [facility] Stop: 06/08/22 13:59 Midazolam HCl (Midazolam Bolus From Bag) 2 mg IV Q60M PRN PRN Reason: Sedation Stop: 06/08/22 09:14 Miscellaneous Information (Pharmacy Glycemic Mgmt Consult) 1 each N/A UD PRN PRN Reason: Consult Stop: 06/07/22 18:33 Risperidone (Risperidone 0.5 Mg Tablet) 0.5 mg PO HS [facility] Stop: 06/07/22 20:59 Last Admin: 05/08/22 22:32 Dose: 0.5 mg Venlafaxine HCl (Venlafaxine Hcl Xr 150 Mg Capxr) 150 mg PO QAM [facility] Stop: 06/08/22 08:59 Last Admin: 05/09/22 09:32 Dose: Not Given
[2022-05-09] MEDS: PHENYLEPHRINE HCL 80 MG in SODIUM CHLORIDE 0.9% 500 ML IV SCH ×5 (14:37→22:56)
[2022-05-09] MEDS: LACTULOSE SYRUP 20 GM/30 ML UDC PO SCH ×2 (14:37→23:12)
[2022-05-09 15:49] LABS: BUN Creatinine Ratio 23.5 (10-20); Calcium 7.2 mg/dl (8.5-10.1); Creatinine Clr Calc Pharmacy 34.9 ml/min; Est GFR (African American) 41.4 ml/min; Est GFR (Non-African American) 35.7 ml/min; Potassium 4.5 mmol/L (3.5-5.1)
[2022-05-09] MEDS ORDERED: SODIUM CHLORIDE 0.9% 1000ML 1,000 ML IV ONE (16:57)
[2022-05-09] MEDS ORDERED: SODIUM BICARB 8.4% INJ 50 MEQ/50 ML SYR IV STA ×2 (16:57→20:15)
[2022-05-09] MEDS ORDERED: SODIUM BICARBONATE 8.4% 150 MEQ in WATER, STERILE 1,000 ML IV SCH (17:00)
[2022-05-09] MEDS: MIDAZOLAM BOLUS FROM BAG IV PRN ×2 (17:51→23:03)
[2022-05-09] MEDS: VASOPRESSIN 20 UNITS in 0.9 % SODIUM CHLORIDE 100 ML IV SCH (19:50)
[2022-05-09] MEDS ORDERED: SODIUM BICARB 8.4% INJ 50 MEQ/50 ML SYR IV ONE (20:19)
[2022-05-09 20:27] LABS: Prothrombin Time 74.3 Seconds (9.0-12.0)
[2022-05-09 20:35] LABS: Troponin I High Sensitivity 346.2 pg/ml (0-14)
[2022-05-09 21:14] LABS: INR 7.8 (0.9-1.1)
[2022-05-09 21:20] LABS: iSTAT Art Bld Gas pCO2 Correct 49 mmHg (35-46); iSTAT Art Bld Gas pH Corrected 7.158 (7.35-7.45); iSTAT Arterial Blood Gas HCO3 17 meg/L (19-24); iSTAT Arterial Blood Gas pCO2 46 mmHg (35-46); iSTAT Arterial Blood Gas pH 7.18 (7.35-7.45); iSTAT Arterial Blood Gas pO2 133 mmHg (80-95); iSTAT Arterial Blood Gas pO2 C 142; iSTAT Carbon Dioxide 18 mmol/L (24-31); iSTAT FiO2 40 %; iSTAT Hematocrit 32 % (37-47); iSTAT Hemoglobin 10.9 g/dl (12.0-16.0); iSTAT Potassium 4.6 mmol/L (3.3-5.0); iSTAT Site Art Line; iSTAT Sodium 131 mmol/L (135-144)
[2022-05-09 21:57] LABS: BUN Creatinine Ratio 19.5 (10-20); Calcium 6.6 mg/dl (8.5-10.1); Creatinine Clr Calc Pharmacy 29.9 ml/min; Est GFR (African American) 34.3 ml/min; Est GFR (Non-African American) 29.6 ml/min; Potassium 4.6 mmol/L (3.5-5.1)
[2022-05-09] MEDS ORDERED: CALCIUM CHLORIDE 10% 1,000 MG in DEXTROSE 5% 50 ML IV STA (22:09)
[2022-05-09] MEDS ORDERED: SODIUM BICARBONATE 8.4% 150 MEQ, POTASSIUM CHLORIDE 20 MEQ in WATER, STERILE 1,000 ML IV SCH (22:30)
[2022-05-09] MEDS: PANTOprazole 40 MG in SYRINGE 0 ML IV SCH (22:45)
[2022-05-09 23:08] LABS: iSTAT Art Bld Gas pCO2 Correct 43 mmHg (35-46); iSTAT Arterial Blood Gas HCO3 19 meg/L (19-24); iSTAT Arterial Blood Gas pCO2 41 mmHg (35-46); iSTAT Arterial Blood Gas pH 7.28 (7.35-7.45); iSTAT Arterial Blood Gas pO2 100 mmHg (80-95); iSTAT Arterial Blood Gas pO2 C 109; iSTAT Carbon Dioxide 20 mmol/L (24-31); iSTAT FiO2 40 %; iSTAT Hematocrit 30 % (37-47); iSTAT Hemoglobin 10.2 g/dl (12.0-16.0); iSTAT Potassium 5.1 mmol/L (3.3-5.0); iSTAT Site Art Line; iSTAT Sodium 130 mmol/L (135-144)
[2022-05-09] MEDS: ATORVASTATIN 40 MG TAB PO SCH (23:11)
[2022-05-09] MEDS: NOREPINEPHRINE/D5W 4 MG/250 ML PLCT IV SCH (23:45)
[2022-05-10] MEDS ORDERED: 0.2 MICRON FILTER SET 1 EACH IV ONE (00:06)
[2022-05-10] MEDS ORDERED: AMIODARONE / D5W 150 MG/100 ML BAG IV STA (00:06)
[2022-05-10] MEDS: AMIODARONE / D5W 360 MG/200 ML BAG IV SCH ×2 (00:07→12:31)
[2022-05-10] MEDS ORDERED: ALBUMIN 25% 100 mL 25 GM/100 ML VIAL IV ONE (00:20)
--- NOTE | 2022-05-10 00:26 | Communication Note ---
Date of Service: May 10, 2022 Coding
[2022-05-10 00:28] LABS: BUN Creatinine Ratio 18.6 (10-20); Calcium 7.3 mg/dl (8.5-10.1); Creatinine Clr Calc Pharmacy 28.4 ml/min; Est GFR (African American) 32.3 ml/min; Est GFR (Non-African American) 27.9 ml/min; Magnesium 1.8 mg/dl (1.7-2.4); Phosphorus 4.5 mg/dl (2.5-4.9)
[2022-05-10] MEDS ORDERED: HYDROCORTISONE SOD 100 MG in SYRINGE 0 ML IV STA (00:31)
[2022-05-10] MEDS ORDERED: SODIUM BICARB 8.4% INJ 50 MEQ/50 ML SYR IV STA (00:33)
[2022-05-10] MEDS: PHENYLEPHRINE HCL 80 MG in SODIUM CHLORIDE 0.9% 500 ML IV SCH ×6 (00:47→11:10)
[2022-05-10] MEDS: fentaNYL citrate 2,500 MCG/250 ML BAG IV SCH (00:54)
[2022-05-10] MEDS: SODIUM BICARBONATE 8.4% 150 MEQ in WATER, STERILE 1,000 ML IV SCH ×2 (00:55→08:32)
[2022-05-10] MEDS: ACETAMINOPHEN 1,000 MG/100 ML VIAL IV PRN (02:58)
[2022-05-10] MEDS: VASOPRESSIN 20 UNITS in 0.9 % SODIUM CHLORIDE 100 ML IV SCH ×2 (03:34→12:31)
[2022-05-10 04:55] LABS: Basophils # (auto) 0.03 K/uL (0-0.2); Basophils % (auto) 0.2 %; Eosinophils # (auto) 0.01 K/uL (0-0.50); Eosinophils % (auto) 0.1 %; Hemoglobin 9.8 g/dl (12.0-16.0); Immature Granulocytes # (auto) 0.18 K/uL (0.00-0.02); Immature Granulocytes % (auto) 1.1 %; Lymphocytes # (auto) 0.84 K/uL (1.2-3.4); Lymphocytes % (auto) 5.3 %; Mean Corpuscular Hemoglobin 28.7 pg (25.0-34.0); Mean Corpuscular Hgb Conc 32.7 g/dL (32.0-36.0); Mean Platelet Volume 11.1 fL (9.4-12.3); Monocytes # (auto) 1.09 K/uL (0.24-0.82); Monocytes % (auto) 6.8 %; Neutrophils # (auto) 13.85 K/uL (1.4-6.5); Neutrophils % (auto) 86.5 %; Nucleated RBC # (auto) 0.04 K/uL (0-0); Nucleated RBC % (auto) 0.3 %; Platelet Count 190 K/uL (130-400); RDW Coefficient of Variation 16.2 % (11.5-14.5); Red Blood Count 3.41 M/uL (3.93-5.22)
[2022-05-10] MEDS: NOREPINEPHRINE/D5W 4 MG/250 ML PLCT IV SCH ×3 (05:06→14:23)
[2022-05-10 05:14] LABS: Prothrombin Time > 90.0 Seconds (9.0-12.0)
[2022-05-10 05:21] LABS: iSTAT Art Bld Gas pCO2 Correct 41 mmHg (35-46); iSTAT Art Bld Gas pH Corrected 7.297 (7.35-7.45); iSTAT Arterial Blood Gas HCO3 20 meg/L (19-24); iSTAT Arterial Blood Gas pCO2 39 mmHg (35-46); iSTAT Arterial Blood Gas pH 7.31 (7.35-7.45); iSTAT Arterial Blood Gas pO2 131 mmHg (80-95); iSTAT Arterial Blood Gas pO2 C 138; iSTAT Carbon Dioxide 21 mmol/L (24-31); iSTAT FiO2 40 %; iSTAT Hematocrit 29 % (37-47); iSTAT Hemoglobin 9.9 g/dl (12.0-16.0); iSTAT Potassium 4.6 mmol/L (3.3-5.0); iSTAT Site Art Line; iSTAT Sodium 131 mmol/L (135-144)
[2022-05-10 05:23] LABS: Albumin Level 2.8 gm/dl (3.4-5.0); Bilirubin,Total 1.6 mg/dl (0.2-1.0); Total Protein 5.7 gm/dl (6.0-8.3)
[2022-05-10 05:46] LABS: INR > 9.6 (0.9-1.1)
[2022-05-10] MEDS ORDERED: ETOMIDATE 2 MG/ML 20 ML VIAL IV ONE (06:17)
[2022-05-10] MEDS: PIPERACILLIN/TAZOBACTAM 3.375 GM in DEXTROSE 5% 100 ML IV SCH (06:25)
[2022-05-10 06:28] LABS: Anion Gap 16 (3-11); BUN Creatinine Ratio 17.1 (10-20); Blood Urea Nitrogen 34 mg/dl (6-23); Chloride 98 mmol/L (98-107); Creatinine Clr Calc Pharmacy 26.1 ml/min; Est GFR (African American) 29.2 ml/min; Est GFR (Non-African American) 25.2 ml/min; Glucose 164 mg/dl (70-99(Fasting)); Magnesium 1.8 mg/dl (1.7-2.4); Phosphorus 4.8 mg/dl (2.5-4.9); Potassium 4.7 mmol/L (3.5-5.1); Sodium 131 mmol/L (136-145)
[2022-05-10] MEDS: HYDROCORTISONE SOD 50 MG in SYRINGE 0 ML IV SCH ×2 (06:46→12:33)
--- NOTE | 2022-05-10 07:45 | XRay Report ---
XR chest 1V portable HISTORY: Intubation. Shortness of breath. COMPARISON: Chest 05/09/2022. FINDINGS: Endotracheal tube terminates 2.5 cm from the patricia. Nasogastric tube terminates below the diaphragm. Cardiomegaly and bilateral airspace opacities/pulmonary edema persists. There are small bi lateral pleural fusions. A cardiac valve prosthesis is again noted. IMPRESSION: 1. Satisfactory support line placement. 2. No change in the cardiomegaly and bilateral airspace opacities/edema. ACT 112: Negative or not required by law. Electronically signed by: Antoni Garrett M.D. 05/10/2022 7:43 AM
[2022-05-10] MEDS: propofoL 1,000 MG/100 ML VIAL IV SCH (07:51)
[2022-05-10] MEDS: VENLAFAXINE HCL XR 150 MG CAPXR PO SCH (07:51)
[2022-05-10] MEDS: INSULIN ASPART PER UNIT SC SCH ×2 (07:53→10:57)
[2022-05-10] MEDS: PANTOprazole 40 MG in SYRINGE 0 ML IV SCH (07:56)
[2022-05-10] MEDS: LACTULOSE SYRUP 20 GM/30 ML UDC PO SCH (07:56)
[2022-05-10] MEDS: busPIRone 5 MG TAB PO SCH (07:57)
[2022-05-10 09:15] LABS: BUN Creatinine Ratio 16.3 (10-20); Calcium 6.8 mg/dl (8.5-10.1); Est GFR (African American) 28.7 ml/min; Est GFR (Non-African American) 24.7 ml/min; Potassium 4.5 mmol/L (3.5-5.1)
[2022-05-10] MEDS ORDERED: Heparin IV Adult Wt-Based Standard *NO* Bolus Protocol IV SCH (10:22)
[2022-05-10] MEDS ORDERED: PHYTONADIONE 2.5 MG in DEXTROSE 5% 50 ML IV ONE ×2 (10:30→13:15)
[2022-05-10] MEDS ORDERED: ASPIRIN 81 MG CHEW PO SCH (10:30)
[2022-05-10] MEDS ORDERED: VANCOMYCIN HCL 1,000 MG in SODIUM CHLORIDE 0.9% 250 ML IV ONE (10:30)
--- NOTE | 2022-05-10 10:36 | Critical Care Progress Note ---
Date of Service May 10, 2022 Assessment & Plan (1) Diabetic ketoacidosis: (2) Severe sepsis: (3) Acute encephalopathy: (4) Pneumonia: (5) Wide-complex tachycardia: (6) Volume overload: (7) Warfarin anticoagulation: Plan 66-year-old female with a history of mechanical aortic valve on warfarin, GERD, hypertension, diabetes, diastolic heart failure, hyperlipidemia and anxiety p resented to the hospital due to shortness of breath and lethargy. She was found to be in DKA with wide-complex tachycardia and lactic acidosis. Neurologic: -- Metabolic encephalopathy Multifactorial from diabetic ketoacidosis and right lower lobe pneumonia Ammonia 99, history of liver cirrhosis also playing a role Pulmonary: -- VDRF Secondary to metabolic encephalopathy as well as right lower lobe pneumonia Patient with right lower lobe infiltrate likely due to aspiration pneumonia. Continue with vent support Cardiovascular: -- Wide-complex tachycardia On amiodarone drip Cardiology on board --Septic shock Currently on Zosyn. Got dose of vancomycin on 05/08/2022. Will check the random level and give another dose of vancomycin Source is most likely pneumonia 2D echo showing vegetation on the aortic valve as well as possible vegetation on the mitral valve Gastrointestinal: Protonix. NPO. CT abdomen results reviewed with no acute findings. Renal: -- High anion gap metabolic acidosis Delta delta: 1.3 As needed anion gap, likely from lactic acidosis -- DANDRE Monitor BUN/creatinine Avoid nephrotoxic medications Strict ins and outs Infectious disease: --Right lower lobe pneumonia On Zosyn, got a dose of vancomycin on 05/08/2022 Given a dose of vancomycin today. Hematologic: --Supratherapeutic INR Vitamin K 2.5 mg given 05/10/2022 We will give another 2.5 mg if the INR is still elevated, if the INR goes below 2.5 we will start the patient on heparin drip Endocrine: TSH normal. DKA protocol as above. Insulin infusion. --Prophylaxis VTE: IPC GI: Pantoprazole Lines: Left radial 05/08, right femoral 05/09, positive ETT 05/08, positive Salvador Diet: N.p.o. Plan: In/out: +11 L, urine output 1150, I think there is a typo in the output. AB.31/39/131 on 40%, PEEP of 5 Chest x-ray today show increased cardiac silhouette, bilateral pulmonary nodular opacities. Continue with bicarb drip for the time being Continue with amiodarone drip Give a dose of Zosyn today. Vitamin K 2.5 mg to be given today. INR in 6 hours. Try to go down on the phenylephrine as much as possible. Case discussed with family at bedside. Critical condition that the patient is in right now explained. They understand and would like to continue with the current management except when her heart stops and no CPR as she is already on 3 vasopressors currently. Case was discussed with Patient's Angel [phone] I have personally spent 55 minutes of critical care time in the direct management of this patient. This is a life/limb threatening event. This includes time spent evaluating patient, direct bedside care, chart review, placing orders, interpretation of diagnostic studies, discussion with consultants, patient, and family members, as well as other required patient management activities. This time is exclusive of all separately billable procedures, and teaching time and separate from and in addition to any other critical care service time. Please note the above document was generated using voice recognition software. It may contain grammatical, syntax or spelling errors. Admission and Anticipated Discharge Date Admission Date: May 08, 2022 Subjective Patient seen and examined at bedside. Patient is on 3 vasopressors. Levophed 0.04, phenylephrine 7.6, Levophed 1.5 On 125 fentanyl and 3 of Versed Patient map was in the mid 60s at the time of examination. Has been afebrile. T-max 38.1 in the last 24 hours Review of Systems Review of Systems: Unobtainable due to endotracheal tube Physical Exam Physical Exam: Constitutional: No acute distress HEENT: PERRLA, positive ETT Respiratory system: Decreased air entry bilaterally, no wheeze, no rhonchi, positive crackles bilateral lower lobes more on the right side CVS: S1-S2 positive, positive mechanical heart sound Abdomen: Soft, nontender, nondistended, positive bowel sounds x4, obese Extremities: +2 pulses bilaterally radialis/ dorsalis pedis, no cyanosis, +1 pitting edema bilateral lower extremity Neuro: Intubated and sedated Psych: Unable to assess G/U: Positive Salvador Skin: no rashes, warm and dry Lymphatic: no cervical or axillary lymphadenopathy Results & Data Results & Data ([facility]) Vital Signs (Past 12 Hours) Vital Signs Temp Pulse Resp BP Pulse Ox FiO2 05/10/22 07:50 121 H 29 H 100 40 05/10/22 06:31 37.2 C 136 H 26 H 100 05/10/22 06:31 105/70 05/10/22 06:30 37.2 C 133 H 25 H 100 05/10/22 06:16 101/53 L 05/10/22 06:16 37.2 C 135 H 23 100 05/10/22 06:15 37.2 C 126 H 24 100 05/10/22 06:00 37.2 C 123 H 30 H 100 05/10/22 06:00 109/74 05/10/22 05:46 87/42 L 05/10/22 05:46 37.2 C 128 H 24 100 05/10/22 05:45 37.3 C 138 H 23 100 05/10/22 05:31 37.3 C 139 H 22 100 05/10/22 05:31 100/55 L 05/10/22 05:30 37.3 C 135 H 22 99 05/10/22 05:15 37.5 C 128 H 24 100 05/10/22 05:15 103/83 05/10/22 05:01 37.6 C H 132 H 24 100 05/10/22 05:01 101/63 05/10/22 05:00 37.6 C H 129 H 25 H 100 05/10/22 04:46 37.8 C H 133 H 28 H 100 05/10/22 04:45 37.8 C H 137 H 23 99 05/10/22 04:31 37.9 C H 138 H 21 98 05/10/22 04:31 86/42 L 05/10/22 04:30 37.9 C H 143 H 23 98 05/10/22 04:15 38.1 C H 135 H 22 99 05/10/22 04:15 98/70 L 05/10/22 04:01 38.2 C H 137 H 24 99 05/10/22 04:01 90/65 L 05/10/22 04:00 38.2 C H 136 H 25 H 99 05/10/22 03:46 38.3 C H 138 H 29 H 99 05/10/22 03:46 105/76 05/10/22 03:45 38.3 C H 126 H 24 99 05/10/22 03:31 38.5 C H 144 H 28 H 99 05/10/22 03:31 100/60 05/10/22 03:30 38.5 C H 135 H 24 99 05/10/22 03:15 38.6 C H 136 H 23 99 05/10/22 03:15 93/64 L 05/10/22 03:01 38.6 C H 132 H 23 99 05/10/22 03:01 90/64 L 05/10/22 03:00 38.6 C H 131 H 28 H 99 05/10/22 02:45 38.7 C H 127 H 27 H 100 05/10/22 02:45 106/88 05/10/22 02:31 38.6 C H 136 H 29 H 99 05/10/22 02:31 113/51 L 05/10/22 02:30 38.6 C H 128 H 32 H 99 05/10/22 04:00 40 05/10/22 04:00 141 H 05/10/22 02:20 132 H 31 H 99 40 05/10/22 02:16 82/60 L 05/10/22 02:16 38.6 C H 132 H 28 H 99 05/10/22 02:15 38.6 C H 130 H 25 H 100 05/10/22 02:01 38.6 C H 132 H 24 99 05/10/22 02:01 95/62 L 05/10/22 02:00 38.6 C H 130 H 27 H 99 05/10/22 01:45 38.5 C H 132 H 27 H 99 05/10/22 01:45 103/62 05/10/22 01:31 38.5 C H 133 H 25 H 100 05/10/22 01:31 103/73 05/10/22 01:30 38.5 C H 128 H 29 H 99 05/10/22 01:16 38.5 C H 144 H 29 H 99 05/10/22 01:16 107/64 05/10/22 01:15 38.5 C H 136 H 30 H 100 05/10/22 01:01 38.5 C H 124 H 27 H 98 05/10/22 01:01 102/49 L 07/25/22 01:00 38.5 C H 125 H 27 H 97 05/10/22 00:57 38.5 C H 121 H 32 H 99 05/10/22 00:57 89/77 L 05/10/22 00:46 38.5 C H 120 H 25 H 97 05/10/22 00:45 38.5 C H 121 H 28 H 97 05/10/22 00:31 38.5 C H 121 H 28 H 97 05/10/22 00:31 110/51 L 05/10/22 00:30 38.5 C H 112 H 26 H 96 05/10/22 00:15 38.5 C H 130 H 23 98 05/10/22 00:00 38.5 C H 138 H 33 H 100 05/10/22 00:00 103/58 L 05/09/22 23:45 38.6 C H 124 H 27 H 98 05/09/22 23:31 38.6 C H 126 H 29 H 98 05/09/22 23:31 106/65 05/09/22 23:30 38.6 C H 124 H 27 H 98 05/09/22 23:15 38.6 C H 132 H 31 H 98 05/09/22 23:01 38.6 C H 134 H 29 H 99 05/09/22 23:00 38.6 C H 132 H 29 H 99 05/09/22 22:46 69/53 L 05/09/22 22:46 38.6 C H 122 H 26 H 100 05/09/22 22:45 38.6 C H 122 H 26 H 100 05/09/22 22:43 38.6 C H 122 H 23 100 05/09/22 22:43 73/58 L 05/09/22 22:41 76/53 L 05/09/22 22:41 38.6 C H 122 H 25 H 100 05/09/22 22:36 91/60 L 05/09/22 22:36 38.6 C H 121 H 28 H 100 05/09/22 22:31 38.6 C H 117 H 25 H 100 05/09/22 22:31 83/60 L 05/09/22 22:30 38.6 C H 121 H 22 100 05/09/22 22:25 38.6 C H 113 H 24 100 05/09/22 22:25 93/69 L 05/09/22 23:55 40 05/09/22 23:53 130 H 05/09/22 22:50 130 H 32 H 99 40 Laboratory Results 05/10/22 04:44 05/10/22 08:46 Coding Level of Care Code Critical Care 1st 30-74 mins Diagnoses Diabetic ketoacidosis E11.10 Severe sepsis A41.9; R65.20 Acute encephalopathy G93.40 Pneumonia J18.9 Wide-complex tachycardia I47.2 Volume overload E87.70 Warfarin anticoagulation Z79.01 Time Spent (min) 55
[2022-05-10] MEDS ORDERED: HEPARIN SODIUM/DEXTROSE 25,000 UNITS/500 ML BAG IV SCH (10:45)
--- NOTE | 2022-05-10 11:04 | Cardiology Progress Note ---
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 Patient now requiring 3 separate pressors for BP support. 2D echocardiogram performed today reveals large, highly mobile and pedunculated lesion on the noncoronary cusp of her bioprosthetic aortic valve replacement A second cannot be excluded on the mitral valve is well given heavy calcification of the entire apparatus. I personally reviewed her outpatient echocardiogram images from [facility]: Aortic vegetation is new, unable to rule out mitral valve vegetation. Given her ongoing need for pressure support and the echocardiographic findings I would recommend transfer to a tertiary care center for cardiothoracic surgery evaluation Discussed with the critical care team and they will arrange. Admission and Anticipated Discharge Date Admission Date: May 08, 2022 Subjective Patient seen and examined, chart reviewed. Discussed with the critical care team patient requiring 3 separate vasopressors for support. Telemetry reviewed: Atrial fibrillation in the 100s to 120s Review of Systems Review of Systems: Unobtainable due to endotracheal tube Physical Exam Physical Exam: General: Intubated and sedated. No acute distress. HEENT: Normocephalic, atraumatic. Pupils equal, round and reactive to light and accommodation. Extraocular muscles are intact. Anicteric sclera. Moist mucous membranes. Neck: No JVD. No bruit. Cardiovascular: irregularly irregular, unable to appreciate murmur, rub or gallop. Pulmonary: Coarse breath sounds diffusely Abdomen: Bowel sounds x 4, soft. No rebound, guarding or tenderness. No organomegaly. Extremities: No clubbing, cyanosis or edema. +2 pedal pulses bilaterally. Skin: Warm and dry. Results & Data ([facility]) Vital Signs (Past 12 Hours) Vital Signs Temp Pulse Resp BP Pulse Ox O2 Del Method FiO2 05/10/22 07:40 Mechanical Vent 05/10/22 08:00 40 05/10/22 07:50 121 H 29 H 100 40 05/10/22 06:31 37.2 C 136 H 26 H 100 05/10/22 06:31 105/70 05/10/22 06:30 37.2 C 133 H 25 H 100 05/10/22 06:16 101/53 L 05/10/22 06:16 37.2 C 135 H 23 100 05/10/22 06:15 37.2 C 126 H 24 100 05/10/22 06:00 37.2 C 123 H 30 H 100 05/10/22 06:00 109/74 05/10/22 05:46 87/42 L 05/10/22 05:46 37.2 C 128 H 24 100 05/10/22 05:45 37.3 C 138 H 23 100 05/10/22 05:31 37.3 C 139 H 22 100 05/10/22 05:31 100/55 L 05/10/22 05:30 37.3 C 135 H 22 99 05/10/22 05:15 37.5 C 128 H 24 100 05/10/22 05:15 103/83 05/10/22 05:01 37.6 C H 132 H 24 100 05/10/22 05:01 101/63 05/10/22 05:00 37.6 C H 129 H 25 H 100 05/10/22 04:46 37.8 C H 133 H 28 H 100 05/10/22 04:45 37.8 C H 137 H 23 99 05/10/22 04:31 37.9 C H 138 H 21 98 05/10/22 04:31 86/42 L 05/10/22 04:30 37.9 C H 143 H 23 98 05/10/22 04:15 38.1 C H 135 H 22 99 05/10/22 04:15 98/70 L 05/10/22 04:01 38.2 C H 137 H 24 99 05/10/22 04:01 90/65 L 05/10/22 04:00 38.2 C H 136 H 25 H 99 05/10/22 03:46 38.3 C H 138 H 29 H 99 05/10/22 03:46 105/76 05/10/22 03:45 38.3 C H 126 H 24 99 05/10/22 03:31 38.5 C H 144 H 28 H 99 05/10/22 03:31 100/60 05/10/22 03:30 38.5 C H 135 H 24 99 05/10/22 03:15 38.6 C H 136 H 23 99 05/10/22 03:15 93/64 L 05/10/22 03:01 38.6 C H 132 H 23 99 05/10/22 03:01 90/64 L 05/10/22 03:00 38.6 C H 131 H 28 H 99 05/10/22 02:45 38.7 C H 127 H 27 H 100 05/10/22 02:45 106/88 05/10/22 02:31 38.6 C H 136 H 29 H 99 05/10/22 02:31 113/51 L 05/10/22 02:30 38.6 C H 128 H 32 H 99 05/10/22 04:00 40 05/10/22 04:00 141 H 05/10/22 02:20 132 H 31 H 99 40 05/10/22 02:16 82/60 L 05/10/22 02:16 38.6 C H 132 H 28 H 99 05/10/22 02:15 38.6 C H 130 H 25 H 100 05/10/22 02:01 38.6 C H 132 H 24 99 05/10/22 02:01 95/62 L 05/10/22 02:00 38.6 C H 130 H 27 H 99 05/10/22 01:45 38.5 C H 132 H 27 H 99 05/10/22 01:45 103/62 05/10/22 01:31 38.5 C H 133 H 25 H 100 05/10/22 01:31 103/73 05/10/22 01:30 38.5 C H 128 H 29 H 99 05/10/22 01:16 38.5 C H 144 H 29 H 99 05/10/22 01:16 107/64 05/10/22 01:15 38.5 C H 136 H 30 H 100 05/10/22 01:01 38.5 C H 124 H 27 H 98 05/10/22 01:01 102/49 L 05/10/22 01:00 38.5 C H 125 H 27 H 97 05/10/22 00:57 38.5 C H 121 H 32 H 99 05/10/22 00:57 89/77 L 05/10/22 00:46 38.5 C H 120 H 25 H 97 05/10/22 00:45 38.5 C H 121 H 28 H 97 05/10/22 00:31 38.5 C H 121 H 28 H 97 05/10/22 00:31 110/51 L 05/10/22 00:30 38.5 C H 112 H 26 H 96 05/10/22 00:15 38.5 C H 130 H 23 98 05/10/22 00:00 38.5 C H 138 H 33 H 100 05/10/22 00:00 103/58 L 05/09/22 23:45 38.6 C H 124 H 27 H 98 05/09/22 23:31 38.6 C H 126 H 29 H 98 05/09/22 23:31 106/65 05/09/22 23:30 38.6 C H 124 H 27 H 98 05/09/22 23:15 38.6 C H 132 H 31 H 98 05/09/22 23:55 40 05/09/22 23:53 130 H
--- NOTE | 2022-05-10 11:09 | Pharmacy Report ---
Pharmacy Glycemic Short Note 2 - Date of Service May 10, 2022 - Glycemic Short BSG Results (Last 24 hours): 05/09/22 05/09/22 05/09/22 10:35 11:14 11:43 Glucose 120 H POC Glucose (other) 139 H 114 H 05/09/22 05/09/22 05/09/22 13:07 14:08 15:15 Glucose 167 H POC Glucose (other) 114 H 135 H 05/09/22 05/09/22 05/09/22 15:44 17:26 18:06 Glucose POC Glucose (other) 172 H 170 H 155 H 05/09/22 05/09/22 05/09/22 19:20 19:47 19:58 Glucose 119 H POC Glucose (other) 128 H 118 H 05/09/22 05/09/22 05/09/22 21:07 21:42 22:16 Glucose POC Glucose (other) 102 H 103 H 121 H 05/09/22 05/09/22 05/10/22 22:45 23:32 00:06 Glucose 161 H POC Glucose (other) 141 H 164 H 05/10/22 05/10/22 05/10/22 01:27 02:14 04:02 Glucose POC Glucose (other) 172 H 167 H 162 H 05/10/22 05/10/22 05/10/22 04:44 06:13 07:53 Glucose 164 H POC Glucose (other) 173 H 193 H 05/10/22 08:46 Glucose 203 H POC Glucose (other) OUTPATIENT ANTIDIABETIC REGIMEN: * Lantus 60 units Qam, lispro 50 units tid, metformin ASSESSMENT: 05/10 * Remains critically ill and intubated in ICU on high doses of three pressors. Steroids initiated today as well * Continue insulin drip 05/09 * 66 year old admitted with DKA, started on insulin infusion on admission. Concerns for infection, receiving abx. Intubated yesterday. Insulin drip running at very high rates. Phenylephrine drip changed to normal saline diluent this morning. Insulin drip up to 28 units/hr overnight, down to 17 units/hr now. * Reasonable to continue insulin drip due to severe status of patient and changing insulin needs PLAN FOR INPATIENT GLYCEMIC CONTROL: * Hold outpatient oral diabetes medications * Continue insulin infusion
--- NOTE | 2022-05-10 12:35 | Communication Note ---
Date of Service: May 10, 2022 Current Inpatient Medications Albuterol (Albuterol Hfa 8 Gm Inhaler) 2 puffs INH Q4 PRN PRN Reason: Shortness Of Breath Or Wheezin Stop: 06/07/22 18:33 Aspirin (Aspirin 81 Mg Chew) 81 mg PO DAILY [facility] Stop: 06/09/22 10:29 Last Admin: 05/10/22 10:43 Dose: 81 mg Atorvastatin Calcium (Atorvastatin 40 Mg Tab) 80 mg PO HS [facility] Stop: 06/07/22 20:59 Last Admin: 05/09/22 23:11 Dose: 80 mg Buspirone HCl (Buspirone 5 Mg Tab) 10 mg PO BID [facility] Stop: 06/07/22 20:59 Last Admin: 05/10/22 07:57 Dose: 10 mg Fentanyl Citrate (Fentanyl Bolus From Bag) 50 mcg IV Q60M PRN PRN Reason: Pain or Agitation Stop: 05/22/22 19:39 Last Admin: 05/09/22 23:03 Dose: 25 mcg Insulin Human Regular 250 (units/ Sodium Chloride) 250 mls @ 4.6 mls/hr IV .Q24H [facility]; Protocol Stop: 06/07/22 13:44 Last Titration: 05/10/22 11:50 Dose: 5.5 units/hr, 5.5 mls/hr Amiodarone HCl/Dextrose (Nexterone / D5w) 360 mg in 200 mls @ 16.667 mls/hr IV .Q12H [facility] Stop: 06/08/22 00:44 Last Admin: 05/10/22 12:31 Dose: 0.5 mg/min, 16.7 mls/hr Piperacillin Sod/Tazobactam (Sod 3.375 gm/ Dextrose) 115 mls @ 28.75 mls/hr IV Q8H [facility]; Protocol Stop: 05/15/22 21:59 Last Infusion: 05/10/22 11:39 Dose: Infused Acetaminophen (Ofirmev) 1,000 mg in 100 mls @ 400 mls/hr IV Q8H PRN PRN Reason: Fever/Mild Pain (Pain 1,2,3) Stop: 05/11/22 19:39 Last Infusion: 05/10/22 03:15 Dose: Infused Fentanyl Citrate (Fentanyl Citrate) 2,500 mcg in 250 mls @ 12.5 mls/hr IV .Q20H [facility]; Protocol Stop: 05/22/22 19:44 Last Admin: 05/10/22 00:54 Dose: 125 mcg/hr, 12.5 mls/hr Pantoprazole Sodium 40 mg/ (Syringe) 10 mls @ 5 mls/min IV BID [facility] Stop: 06/08/22 20:59 Last Admin: 05/10/22 07:56 Dose: 5 mls/min Midazolam HCl (Versed) 125 mg in 250 mls @ 6 mls/hr IV .[id number] [facility]; Protocol Stop: 06/08/22 09:14 Last Titration: 05/09/22 19:19 Dose: 3 mg/hr, 6 mls/hr Phenylephrine HCl 80 mg/ (Sodium Chloride) 508 mls @ 187.391 mls/hr IV .Q2H43M [facility]; Protocol Stop: 06/08/22 13:29 Last Titration: 05/10/22 11:38 Dose: 5.8 mcg/kg/min, 187.4 mls/hr Vasopressin 20 units/ Sodium (Chloride) 101 mls @ 12.12 mls/hr IV .Q8H20M [facility] Stop: 06/08/22 19:44 Last Admin: 05/10/22 12:31 Dose: 0.04 unit/min, 12.1 mls/hr Norepinephrine Bitartrate (Levophed/D5w) 4 mg in 250 mls @ 15.9 mls/hr IV .[id number] [facility]; Protocol Stop: 06/08/22 22:29 Last Admin: 05/10/22 10:22 Dose: 0.15 mcg/kg/min, 47.7 mls/hr Sodium Bicarbonate 150 meq/ (Sterile Water) 1,150 mls @ 150 mls/hr IV .Q7H40M [facility] Stop: 06/09/22 00:59 Last Admin: 05/10/22 08:32 Dose: 150 mls/hr Hydrocortisone Sodium (Succinate 50 mg/ Syringe) 1 mls @ 4 mls/min IV Q6H [facility] Stop: 06/09/22 06:59 Last Admin: 05/10/22 12:33 Dose: 4 mls/min Heparin Sodium/Dextrose (Heparin Sodium/Dextrose) 25,000 units in 500 mls @ 0.02 mls/hr IV .Q24H [facility]; Protocol Stop: 06/09/22 10:44 Insulin Aspart (Insulin Aspart Per Unit) 0 units SC ACHS [facility] Stop: 06/07/22 16:29 Last Admin: 05/10/22 10:57 Dose: Not Given Lactulose (Lactulose Syrup 20 Gm/30 Ml Udc) 20 gm PO TID [facility] Stop: 06/08/22 13:59 Last Admin: 05/10/22 07:56 Dose: 20 gm Midazolam HCl (Midazolam Bolus From Bag) 2 mg IV Q60M PRN PRN Reason: Sedation Stop: 06/08/22 09:14 Last Admin: 05/09/22 23:03 Dose: 2 mg Miscellaneous (Start Heparin Drip: Pending Order) 1 each N/A Q6 [facility] Stop: 06/09/22 11:59 Miscellaneous Information (Pharmacy Glycemic Mgmt Consult) 1 each N/A UD PRN PRN Reason: Consult Stop: 06/07/22 18:33 Risperidone (Risperidone 0.5 Mg Tablet) 0.5 mg PO HS [facility] Stop: 06/07/22 20:59 Last Admin: 05/08/22 22:32 Dose: 0.5 mg Venlafaxine HCl (Venlafaxine Hcl Xr 150 Mg Capxr) 150 mg PO QAM [facility] Stop: 06/08/22 08:59 Last Admin: 05/10/22 07:51 Dose: Not Given
[2022-05-10 12:45] LABS: Prothrombin Time > 90.0 Seconds (9.0-12.0)
--- NOTE | 2022-05-10 12:51 | Discharge Summary ---
Date of Service May 10, 2022 Admission HPI Per Admitting Provider 66 year old female with h/o Aflutter, IDDM, chronic diastolic CHF, cirrhosis of liver, mechanical AV on coumadin, GERD who presented to the ED today for 'not feeling well' for past 3 days. States for past 3 days she has not been feeling well and has not taken any of her medications including insulin. States has fever but did not take any temperature. States has diarrhea about 2 BM daily but no blood. Denies any cough, chest pain, nausea, vomiting, abdominal pain. Drinking fluids at home but not eating much. Does not smoke or drink alcohol. Lives with her . Her does not know her medications- tried my best to reconcile medications with her at bedside. In the ED, she was afebrile, BP stable but found to be in wide complex tachycardia- seen by cardio and started on cardizem drip and bolus and recommended ICU monitoring. Also found to have sepsis with RLL PNA as well as DKA and started on empiric vanc/zosyn and DKA protocol, however cautious with IVF given evidence of pulm edema and respiratory distress and was started on BIPAP. Spoke to supervisor stave cutting and being admitted to ICU. 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 HEENT: PERRL Chest: Coarse breath sounds anteriorly CVS: Tachycardic, no murmur Abdomen: Soft, normal bowel sounds Neuro: Sedated. Extremities: No edema Discharge Data Allergies Allergy/AdvReac Type Severity Reaction Status Date / Time ciprofloxacin AdvReac Mild vomitting Verified 05/08/22 15:53 erythromycin base AdvReac Mild vomiting Verified 05/08/22 15:53 gabapentin AdvReac Mild RETAIN Verified 05/08/22 15:53 FLUIDS hydroxyzine AdvReac Mild runny nose Verified 05/08/22 15:53 and eyes water Sulfa (Sulfonamide AdvReac Mild vomitting Verified 05/08/22 15:53 Antibiotics) tetracycline AdvReac Mild vomitting Verified 05/08/22 15:53 Consultations 05/08/22 15:18 ED Decision to Admit Stat 05/08/22 18:34 Consult Starter Mechanic Routine 05/09/22 11:55 Consult Cardiology Routine Ordered Studies 05/08/22 13:47 CT abd pelvis wo con Stat 05/09/22 10:52 US point of care ultrasound Urgent Laboratory Results WBC 16.00 K/ul (4.8-10.8) H 05/10/22 04:44 RBC 3.41 M/uL (3.93-5.22) L 05/10/22 04:44 Hgb 9.8 g/dl (12.0-16.0) L 05/10/22 04:44 POC Hgb 9.9 g/dl (12.0-16.0) L 05/10/22 05:07 Hct 30.0 % (34.1-44.9) L 05/10/22 04:44 POC Hct 29 % (37-47) L 05/10/22 05:07 MCV 88.0 fL (80.0-100.0) 05/10/22 04:44 MCH 28.7 pg (25.0-34.0) 05/10/22 04:44 MCHC 32.7 g/dL (32.0-36.0) 05/10/22 04:44 RDW Std Deviation 51.0 fL (36.4-46.3) H 05/10/22 04:44 RDW Coeff of Tere 16.2 % (11.5-14.5) H 05/10/22 04:44 Plt Count 190 K/uL (130-400) 05/10/22 04:44 MPV 11.1 fL (9.4-12.3) 05/10/22 04:44 Immature Gran % (Auto) 1.1 % 05/10/22 04:44 Neut % (Auto) 86.5 % 05/10/22 04:44 Lymph % (Auto) 5.3 % 05/10/22 04:44 Hill % (Auto) 6.8 % 05/10/22 04:44 Eos % (Auto) 0.1 % 05/10/22 04:44 Baso % (Auto) 0.2 % 05/10/22 04:44 Neut # (Auto) 13.85 K/uL (1.4-6.5) H 05/10/22 04:44 Lymph # (Auto) 0.84 K/uL (1.2-3.4) L 05/10/22 04:44 Hill # (Auto) 1.09 K/uL (0.24-0.82) H 05/10/22 04:44 Eos # (Auto) 0.01 K/uL (0-0.50) 05/10/22 04:44 Baso # (Auto) 0.03 K/uL (0-0.2) 05/10/22 04:44 Immature Gran # (Auto) 0.18 K/uL (0.00-0.02) H 05/10/22 04:44 Absolute Nucleated RBC 0.04 K/uL (0-0) H 05/10/22 04:44 Nucleated RBC % (auto) 0.3 % 05/10/22 04:44 Neutrophils % (Manual) 85 % 05/08/22 12:50 Lymphocytes % (Manual) 3 % 05/08/22 12:50 Monocytes % (Manual) 7 % 05/08/22 12:50 Metamyelocytes % (Man) 4 % 05/08/22 12:50 Myelocytes % (Man) 1 % 05/08/22 12:50 Neutrophils # (Manual) 23.47 K/uL (1.4-6.5) H 05/08/22 12:50 Total Absolute Neuts 23.47 K/uL (1.4-6.5) H 05/08/22 12:50 Lymphocytes # (Manual) 0.83 K/uL (1.2-3.4) L 05/08/22 12:50 Total Abs Lymphocytes 0.83 K/uL (1.2-3.4) L 05/08/22 12:50 Monocytes # (Manual) 1.93 K/uL (0.24-0.82) H 05/08/22 12:50 Metamyelocytes # (Man) 1.10 K/uL (0-0) H 05/08/22 12:50 Myelocytes # (Manual) 0.28 K/uL (0-0) H 05/08/22 12:50 Toxic Granulation 1+ 05/09/22 09:38 Dohle Bodies 1+ 05/09/22 09:38 Polychromasia 1+ 05/09/22 09:38 Echinocytes 2+ 05/09/22 05:38 PT > 90.0 Seconds (9.0-12.0) H 05/10/22 11:45 INR > 9.6 (0.9-1.1) H* 05/10/22 11:45 APTT 44.8 Seconds (21.0-31.0) H 05/08/22 12:50 PTT Ratio 1.6 05/08/22 12:50 Sample Site Art Line 05/10/22 05:07 POC pH 7.31 (7.35-7.45) L 05/10/22 05:07 POC pCO2 39 mmHg (35-46) 05/10/22 05:07 POC pO2 131 mmHg (80-95) H 05/10/22 05:07 POC HCO3 20 ann/L (19-24) 05/10/22 05:07 POC Total CO2 21 mmol/L (24-31) L 05/10/22 05:07 POC Base Excess -6.0 ann/L (-9-1.8) 05/10/22 05:07 ABG pH 7.39 (7.35-7.45) 05/09/22 05:38 ABG pH (Temp Correct) 7.297 (7.35-7.45) L 05/10/22 05:07 ABG pCO2 25 mmHg (35-46) L 05/09/22 05:38 ABG pCO2 (Temp Corrct 41 mmHg (35-46) 05/10/22 05:07 ABG pO2 101 mmHg (80-95) H 05/09/22 05:38 POC ABG pO2 at Pt Temp 138 05/10/22 05:07 ABG HCO3 15 mmol/L (19-24) L 05/09/22 05:38 POC ABG O2 Sat 99.0 % (90-95) H 05/10/22 05:07 ABG O2 Saturation 99.1 % (90-95) H 05/09/22 05:38 ABG Base Excess -8.1 mEq/L (-9-1.8) 05/09/22 05:38 Jorden Test NA 05/10/22 05:07 VBG pH 7.23 (7.36-7.41) L 05/08/22 17:00 VBG pCO2 28 mmHg (38-50) L 05/08/22 12:51 VBG pO2 73 mmHg 05/08/22 12:51 VBG HCO3 14 mmol/L 05/08/22 12:51 VBG O2 Saturation 95.1 % 05/08/22 12:51 VBG Base Excess -11.6 mEq/L 05/08/22 12:51 Oxygen Given RA 05/09/22 05:38 O2 Delivery Device Ventilator 05/10/22 05:07 POC O2 Rate 24 05/10/22 05:07 Minute Ventilation 7.5 05/10/22 05:07 POC FiO2 40 % 05/10/22 05:07 Tidal Volume 315 05/10/22 05:07 PEEP 5 05/10/22 05:07 POC Sodium 131 mmol/L (135-144) L 05/10/22 05:07 Sodium 131 mmol/L (136-145) L 05/10/22 08:46 POC Potassium 4.6 mmol/L (3.3-5.0) 05/10/22 05:07 Potassium 4.5 mmol/L (3.5-5.1) 05/10/22 08:46 POC Chloride 97 mmol/L (101-112) L 05/08/22 12:52 Chloride 98 mmol/L (98-107) 05/10/22 08:46 Carbon Dioxide 19 mmol/L (21-32) L 05/10/22 08:46 POC Total CO2 15 mmol/L (24-31) L 05/08/22 12:52 Anion Gap 14 (3-11) H 05/10/22 08:46 POC Anion Gap 23.0 mmol/L (16-25) 05/08/22 12:52 POC BUN 33 mg/dl (7-18) H 05/08/22 12:52 BUN 33 mg/dl (6-23) H 05/10/22 08:46 Creatinine 2.02 mg/dl (0.6-1.2) H 05/10/22 08:46 POC Creatinine 1.9 mg/dl (0.6-1.3) H 05/08/22 12:52 Est Cr Clr Drug Dosing 29.0 ml/min 05/10/22 08:46 Est GFR ( Amer) 28.7 ml/min 05/10/22 08:46 Est GFR (Non-Af Amer) 24.7 ml/min 05/10/22 08:46 BUN/Creatinine Ratio 16.3 (10-20) 05/10/22 08:46 Glucose 203 mg/dl (70-99(Fasting)) H 05/10/22 08:46 POC Glucose 232 mg/dl (70-99) H 05/10/22 14:47 POC Glucose (other) 222 mg/dl (70-99) H 05/10/22 13:10 Osmolality 271 mOsm/kg (280-300) L 05/09/22 07:42 Lactate 3.4 mmol/L (0.4-2.0) H* 05/10/22 08:46 Calcium 6.8 mg/dl (8.5-10.1) L 05/10/22 08:46 POC Ioniz Calcium Eladio 1.13 mmol/l (1.12-1.32) 05/08/22 12:52 Phosphorus 4.8 mg/dl (2.5-4.9) 05/10/22 04:44 Magnesium 1.8 mg/dl (1.7-2.4) 05/10/22 04:44 Total Bilirubin 1.6 mg/dl (0.2-1.0) H D 05/10/22 04:44 Direct Bilirubin 1.0 mg/dl (0-0.2) H 05/10/22 04:44 AST 78 U/L (13-39) H 05/10/22 04:44 ALT 33 U/L (7-52) 05/10/22 04:44 Alkaline Phosphatase 70 U/L (34-104) 05/10/22 04:44 Ammonia 99.0 umol/L (18-72) H 05/09/22 08:28 Total Creatine Kinase 355 U/L (26-192) H 05/08/22 12:50 Troponin I High Sens 346.2 pg/ml (0-14) H* D 05/09/22 19:47 B-Natriuretic Peptide 576 pg/ml (0-100) H 05/10/22 07:51 Total Protein 5.7 gm/dl (6.0-8.3) L D 05/10/22 04:44 Albumin 2.8 gm/dl (3.4-5.0) L 05/10/22 04:44 Globulin 2.4 gm/dl (2.5-4.0) L 05/09/22 05:38 Albumin/Globulin Ratio 0.8 (0.9-2) L 05/09/22 05:38 Triglycerides 107 mg/dl (0-150) 05/09/22 07:42 Lipase 15 U/L (11-82) 05/09/22 07:42 Procalcitonin 31.66 ng/ml (0-0.5) H 05/10/22 04:44 TSH 1.129 uIu/ml (0.300-4.500) 05/08/22 12:50 Urine Color Yellow 05/09/22 09:00 Urine Appearance Clear (Clear) 05/09/22 09:00 Urine pH 5.0 (4.5-7.5) 05/09/22 09:00 Ur Specific Clifton 1.020 (1.000-1.030) 05/09/22 09:00 Urine Protein Negative (Negative) 05/09/22 09:00 Urine Glucose (UA) Negative (Negative) 05/09/22 09:00 Urine Ketones Negative (Negative) 05/09/22 09:00 Urine Blood Negative (Negative) 05/09/22 09:00 Urine Nitrite Negative (Negative) 05/09/22 09:00 Urine Bilirubin Negative (Negative) 05/09/22 09:00 Urine Urobilinogen Negative (Negative) 05/09/22 09:00 Ur Leukocyte Esterase Negative (Negative) 05/09/22 09:00 Urine Sodium 13 mmol/L 05/09/22 09:00 Urine Potassium 65.0 mmol/L 05/09/22 09:00 Urine Chloride < 15 mmol/L 05/09/22 09:00 Nasal Screen MRSA (PCR) Negative (Negative) 05/09/22 09:00 Random Vancomycin 8.2 mcg/ml (10-20) L 05/09/22 05:38 SARS-CoV-2, RNA, NAAT NEGATIVE (NEGATIVE) 05/08/22 12:53 Impressions Abdomen/Pelvis CT 05/08/22 13:47 CT SCAN OF THE ABDOMEN AND PELVIS WITHOUT IV CONTRAST CLINICAL HISTORY: Leukocytosis. COMPARISON STUDY: Abdominal CT dated 05/03/2018. TECHNIQUE: CT scan of the abdomen and pelvis is performed from the lung bases to the proximal femora. Images are reviewed in the axial, sagittal, and coronal planes. IV contrast was not administered for this examination. Note that the examination was performed in significantly suboptimal fashion without oral and IV contrast. A dose lowering technique was utilized adhering to the principles of ALARA. CT DOSE: 990.36 mGy.cm FINDINGS: Lung bases: The heart is enlarged and without pericardial effusion. The coronary arteries and mitral annulus are densely calcified. Diminished attenuation of the cardiac blood pool as compared to the myocardium suggests anemia. There is a small hiatal hernia. There is dense airspace consolidation in the right lower lobe. The left lung base is clear. No pleural effusion is identified. Liver: The unenhanced liver is cirrhotic in morphology and heterogeneous in a ttenuation. There is hypertrophy of the left lobe and nodularity of the hepatic surface contour. There is no intrahepatic biliary ductal dilatation. Gallbladder: Surgically absent noting clips in the gallbladder fossa. Spleen: The spleen is enlarged, measuring 14.3 cm in length. Pancreas: The unenhanced pancreas is moderately atrophic and grossly unremarkable. Adrenal glands: Unremarkable. Kidneys: The unenhanced kidneys are normal in size and without hydronephrosis. There are no renal calculi identified. There is no evidence of contour deforming renal mass lesion. Abdominal vasculature: The abdominal aorta is normal in course and caliber noting moderate atherosclerotic calcification. Bowel: There is mild colonic diverticulosis without CT evidence of acute diverticulitis. No bowel obstruction is identified. The appendix is well- visualized and normal. Peritoneum: There is trace perihepatic ascites. No intraperitoneal free air is identified. A fat-containing ventral hernia is seen in the right upper quadrant on image #157. There is evidence of previous ventral hernia repair in the pelvis. Lymphadenopathy: None. Pelvic viscera: The bladder wall appears circumferentially thickened. The uterus is normal as visualized. There is a 6.7 cm simple cystic lesion identified in the right adnexa seen on image #298. Trace free fluid is seen in the pelvis. Skeletal structures: The skeletal structures are osteopenic. Mild lumbosacral spondylosis is observed. No lytic or blastic lesions are seen. IMPRESSION: 1. There is dense right lower lobe consolidation typical for pneumonia. Clinical correlation will be required and radiographic follow-up to resolution is recommended. 2. The liver is cirrhotic in morphology and heterogeneous in attenuation. 3. Splenomegaly and trace abdominopelvic ascites indicate portal hypertension. 4. There is a 6.7 cm simple cystic lesion in the right adnexa, likely related to the right ovary. This has significantly increased in size dating back to 2018. Nonemergent pelvic ultrasound and gynecology follow-up is recommended. 5. Additional findings as above. ACT 112: Negative or not required by law. Electronically signed by: Oscar Sharif M.D. 05/08/2022 3:28 PM Chest X-Ray 05/10/22 07:00 XR chest 1V portable HISTORY: Intubation. Shortness of breath. COMPARISON: Chest 05/09/2022. FINDINGS: Endotracheal tube terminates 2.5 cm from the patricia. Nasogastric tube terminates below the diaphragm. Cardiomegaly and bilateral airspace opacities/pulmonary edema persists. There are small bilateral pleural fusions. A cardiac valve prosthesis is again noted. IMPRESSION: 1. Satisfactory support line placement. 2. No change in the cardiomegaly and bilateral airspace opacities/edema. ACT 112: Negative or not required by law. Electronically signed by: Antoni Garrett M.D. 05/10/2022 7:43 AM Hospital Course (1) Severe sepsis: (2) Pneumonia: (3) Wide-complex tachycardia: (4) Diabetic ketoacidosis: (5) DANDRE (acute kidney injury): (6) Cirrhosis of liver: (7) Mechanical heart valve present: (8) Supratherapeutic INR: (9) Pulmonary edema: Plan 66 year old female with h/o chronic diastolic CHF, Cirrhosis of liver, mechanical aortic valve on coumadin, paroxysmal atrial flutter, DM-2 on insulin, who presented to the ED 05/08 with complaint of not feeling well for 3 days and hadn't taken any of her meds for 3 days. She was found to have DKA with severe sepsis with PNA, wide complex tachycardia, pulmonary edema, respiratory distress, DANDRE, lactic acidosis. She was admitted to ICU. She was started on DKA protocol with insulin drip, empiric IV antibiotics for severe sepsis, iv cardizem for tachycardia. However, she had rapid decline in clinical status with altered mental status in ICU and was intubated on 05/08 for airway protection. She developed septic shock and required multiple pressors. Her cardizem was switched to amiodarone drip for tachycardia. Her INR continued to worsen despite holding coumadin and was given Vitamin K. She continued to remain febrile. Blood clx remained negative. She had echo done today which showed large highly mobile vegetation in prosthetic aortic valve, possible vegetation in mitral valve and cardiology recommended cardiothoracic surgery evaluation for which she is being transferred to [facility]. Spoke to Dr Ashford, supervisor stave cutting from [facility] who accepted the patient under his care. Dr Nunez updated the family and revisited the code status and was changed to conditional code (no CPR, okay with intubation). She was transferred via airlift to [facility]. She was hemodynamically stable on [address] A/P There is dense right lower lobe consolidation typical for pneumonia. Clinical correlation will be required and radiographic follow-up to resolution is recommended. 2. The liver is cirrhotic in morphology and heterogeneous in attenuation. 3. Splenomegaly and trace abdominopelvic ascites indicate portal hypertension. 4. There is a 6.7 cm simple cystic lesion in the right adnexa, likely related to the right ovary. This has significantly increased in size dating back to 2018. Nonemergent pelvic ultrasound and gynecology follow-up is recommended. 5. Additional findings as above. Prosthetic AV endocarditis - Per cardiology- "2D echocardiogram performed today reveals large, highly mobile and pedunculated lesion on the noncoronary cusp of her bioprosthetic aortic valve replacement A second cannot be excluded on the mitral valve is well given heavy calcification of the entire apparatus. I personally reviewed her outpatient echocardiogram images from [facility]: Aortic vegetation is new, unable to rule out mitral valve vegetation. Given her ongoing need for pressure support and the echocardiographic findings I would recommend transfer to a tertiary care center for cardiothoracic surgery evaluation Discussed with the critical care team and they will arrange." - Transferred to [facility] for cardiothoracic surgery evaluation Severe sepsis with PNA with septic shock- Met sepsis criteria with leucocytosis, tachycardia, tachypnea and lactic acidosis. CT with RLL PNA. - On empiric antibiotics vanc/zosyn, 3 pressors (levophed, vasopressin and phenylephrine) and ventilation management per supervisor stave cutting - procal 31, lact 3.4, WBC 16 - blood clx 05/08 negative, repeat blood clx sent today, Sputum clx 05/09 with normal mackenzie as of now, UA not suggestive of UTI. VDRF secondary to metabolic encephalopathy, PNA and CHF- intubated 05/08. Remains on mechanical ventilation Acute metabolic encephalopathy- likely from sepsis, hepatic encephalopathy- ammonia 99. continue lactulose DKA- BG 400s, bicarb 15, AG 21. 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 DKA in setting of acute illness and medication non compliance. - S/p DKA protocol with insulin drip with resolution of AG. Further management per glycemic pharmacist. Wide complex tachycardia- seen by cardio- suspected SVT with rate related LBBB per cardio - started on cardizem drip but had hypotension and now on iv amiodarone drip and pressors. Management per cardiology Acute on chronic diastolic CHF- CXR with cardiomegaly with CHF and pulmonary edema. BNP elevated. Diuresis as indicated DANDRE- in setting of sepsis and hemodynamic instability. Cr improved but again worsening, now 2. Cr 1.8->1.16->2 Avoid nephrotoxics. Follow up Elevated troponin- trop trend flat, mildly elevated. Due to demand ischemia from acute illness as above. Mechanical AV on coumadin with supratherapeutic INR- INR 3.8->6.2->9.6. Coumadin remains on hold, DIC panel negative, S/p Iv vitamin K. Follow up on INR Cirrhosis of liver with splenomegaly and encephalopathy- Ammonia 99, trace ascites. Continue lactulose Hyponatremia- improved to 131 Hypophosphatemia- Repleted. Right adnexal cystic lesion- 6.[address], increased from 2018. Recommended non emergent pelvic US and acute care certified nursing assistant follow up. Dispo- transferred to [facility] via airlift for further management including cardiothoracic surgery evaluation for prosthetic AV endocarditis Total Time Total Time Spent Total Time Spent (In Minutes): 50 Discharge Plan Discharge Items Patient Disposition: Transfer Acute Care Hospital Reason For Visit: NOT FEELING WELL Discharge Diagnosis: Septic shock with pneumonia, VDRF, Mechanical AV endocarditis but negative blood culture, Wide complex tachycardia, DANDRE, supratherapeutic INR, lactic acidosis, Metabolic encephalopathy, Cirrhosis of liver, CHF due to valvular disease, Paroxysmal atrial flutter, DKA Activity: Per Instructions section Non-emergency contact: Primary Care Provider Call non-emergency contact if: you have any medication questions Follow-up/Referrals: Mitchel Brown PA-C [Primary Care Provider] - Diet: Heart Healthy and Nothing by Mouth Fluids: 1500ml (6 cups) Addtl Attending Provider Instructions: you are very sick with multiple medical issues- septic shock, pneumonia, heart valve vegetations, kidney failure, respiratory failure, rapid heart rate etc. You are getting transferred to [facility] for further management including CT surgery evaluation Below are the list of medications you are getting here and recommended to mikel poon upon admission at [place] Date of Service: May 10, 2022 Current Inpatient Medications Albuterol (Albuterol Hfa 8 Gm Inhaler) 2 puffs INH Q4 PRN PRN Reason: Shortness Of Breath Or Wheezin Stop: 06/07/22 18:33 Aspirin (Aspirin 81 Mg Chew) 81 mg PO DAILY CUATE Stop: 06/09/22 10:29 Last Admin: 05/10/22 10:43 Dose: 81 mg Atorvastatin Calcium (Atorvastatin 40 Mg Tab) 80 mg PO HS CUATE Stop: 06/07/22 20:59 Last Admin: 05/09/22 23:11 Dose: 80 mg Buspirone HCl (Buspirone 5 Mg Tab) 10 mg PO BID CUATE Stop: 06/07/22 20:59 Last Admin: 05/10/22 07:57 Dose: 10 mg Fentanyl Citrate (Fentanyl Bolus From Bag) 50 mcg IV Q60M PRN PRN Reason: Pain or Agitation Stop: 05/22/22 19:39 Last Admin: 05/09/22 23:03 Dose: 25 mcg Insulin Human Regular 250 (units/ Sodium Chloride) 250 mls @ 4.6 mls/hr IV .Q24H CUATE; Protocol Stop: 06/07/22 13:44 Last Titration: 05/10/22 11:50 Dose: 5.5 units/hr, 5.5 mls/hr Amiodarone HCl/Dextrose (Nexterone / D5w) 360 mg in 200 mls @ 16.667 mls/hr IV .Q12H CUATE Stop: 06/08/22 00:44 Last Admin: 05/10/22 12:31 Dose: 0.5 mg/min, 16.7 mls/hr Piperacillin Sod/Tazobactam (Sod 3.375 gm/ Dextrose) 115 mls @ 28.75 mls/hr IV Q8H CUATE; Protocol Stop: 05/15/22 21:59 Last Infusion: 05/10/22 11:39 Dose: Infused Acetaminophen (Ofirmev) 1,000 mg in 100 mls @ 400 mls/hr IV Q8H PRN PRN Reason: Fever/Mild Pain (Pain 1,2,3) Stop: 05/11/22 19:39 Last Infusion: 05/10/22 03:15 Dose: Infused Fentanyl Citrate (Fentanyl Citrate) 2,500 mcg in 250 mls @ 12.5 mls/hr IV .Q20H CUATE; Protocol Stop: 05/22/22 19:44 Last Admin: 05/10/22 00:54 Dose: 125 mcg/hr, 12.5 mls/hr Pantoprazole Sodium 40 mg/ (Syringe) 10 mls @ 5 mls/min IV BID CUATE Stop: 06/08/22 20:59 Last Admin: 05/10/22 07:56 Dose: 5 mls/min Midazolam HCl (Versed) 125 mg in 250 mls @ 6 mls/hr IV .[id number] CUATE; Protocol Stop: 06/08/22 09:14 Last Titration: 05/09/22 19:19 Dose: 3 mg/hr, 6 mls/hr Phenylephrine HCl 80 mg/ (Sodium Chloride) 508 mls @ 187.391 mls/hr IV .Q2H43M CUATE; Protocol Stop: 06/08/22 13:29 Last Titration: 05/10/22 11:38 Dose: 5.8 mcg/kg/min, 187.4 mls/hr Vasopressin 20 units/ Sodium (Chloride) 101 mls @ 12.12 mls/hr IV .Q8H20M CUATE Stop: 06/08/22 19:44 Last Admin: 05/10/22 12:31 Dose: 0.04 unit/min, 12.1 mls/hr Norepinephrine Bitartrate (Levophed/D5w) 4 mg in 250 mls @ 15.9 mls/hr IV .[id number] CUATE; Protocol Stop: 06/08/22 22:29 Last Admin: 05/10/22 10:22 Dose: 0.15 mcg/kg/min, 47.7 mls/hr Sodium Bicarbonate 150 meq/ (Sterile Water) 1,150 mls @ 150 mls/hr IV .Q7H40M CUATE Stop: 06/09/22 00:59 Last Admin: 05/10/22 08:32 Dose: 150 mls/hr Hydrocortisone Sodium (Succinate 50 mg/ Syringe) 1 mls @ 4 mls/min IV Q6H CUATE Stop: 06/09/22 06:59 Last Admin: 05/10/22 12:33 Dose: 4 mls/min Heparin Sodium/Dextrose (Heparin Sodium/Dextrose) 25,000 units in 500 mls @ 0.02 mls/hr IV .Q24H [facility]; Protocol Stop: 06/09/22 10:44 Insulin Aspart (Insulin Aspart Per Unit) 0 units SC ACHS [facility] Stop: 06/07/22 16:29 Last Admin: 05/10/22 10:57 Dose: Not Given Lactulose (Lactulose Syrup 20 Gm/30 Ml Udc) 20 gm PO TID [facility] Stop: 06/08/22 13:59 Last Admin: 05/10/22 07:56 Dose: 20 gm Midazolam HCl (Midazolam Bolus From Bag) 2 mg IV Q60M PRN PRN Reason: Sedation Stop: 06/08/22 09:14 Last Admin: 05/09/22 23:03 Dose: 2 mg Miscellaneous (Start Heparin Drip: Pending Order) 1 each N/A Q6 [facility] Stop: 06/09/22 11:59 Miscellaneous Information (Pharmacy Glycemic Mgmt Consult) 1 each N/A UD PRN PRN Reason: Consult Stop: 06/07/22 18:33 Risperidone (Risperidone 0.5 Mg Tablet) 0.5 mg PO HS [facility] Stop: 06/07/22 20:59 Last Admin: 05/08/22 22:32 Dose: 0.5 mg Venlafaxine HCl (Venlafaxine Hcl Xr 150 Mg Capxr) 150 mg PO QAM CUATE Stop: 06/08/22 08:59 Last Admin: 05/10/22 07:51 Dose: Not Given Pending Studies at Discharge: Yes (repeat blood culture) Stand-Alone Forms: [facility] Skilled Items Patient informed of condition?: No DNR: No Discharge Level of Care: Other Communicable Disease: No Discharge Prognosis: Stable Lines: Peripheral IV Urinary Catheter: Yes Medications and DC Order Prescriptions: Continued metformin 500 mg Tablet 500 mg PO BIDM atorvastatin 80 mg Tablet 80 mg PO HS potassium chloride 10 mEq Capsule, Extended Release 20 meq PO BID insulin glargine [Lantus U-100 Insulin] 100 unit/mL Solution 60 unit SUBCUT QAM torsemide 20 mg Tablet 20 mg PO BID sotalol 80 mg Tablet 80 mg PO BID venlafaxine [Effexor XR] 150 mg Capsule,Extended Release 24hr 150 mg PO QAM spironolactone 25 mg Tablet 50 mg PO QAM Rx Instructions: 2 tablet dose pantoprazole [Protonix] 40 mg Tablet,Delayed Release (Dr/Ec) 40 mg PO BID nitroglycerin [Nitrostat] 0.4 mg Tablet, Sublingual 0.4 mg Sublingual DIRECTED PRN (Reason: Chest Pain) Label Comments: SPRAY - NEVER HAD TO USE folic acid 1 mg Tablet 2 mg PO DAILY albuterol sulfate [Proventil HFA] 90 mcg/actuation Hfa Aerosol Inhaler 2 puff INHALATION Q4 PRN (Reason: Shortness Of Breath Or Wheezing) lisinopril 2.5 mg Tablet 2.5 mg PO QAM cholecalciferol (vitamin D3) [Vitamin D3] 2,000 unit Capsule 2,000 unit PO DAILY Label Comments: HAS VITAMIN C IN IT - EVENING insulin lispro [Humalog U-100 Insulin] 100 unit/mL solution 50 unit subcut TID Rx Instructions: sliding scale ondansetron HCl 4 mg tablet 4 mg PO Q6 PRN (Reason: Nausea) warfarin 4 mg tablet See Rx Instructions .ROUTE .COMPLEX Rx Instructions: take 1/2 tablet on wednesdays and 1 whole tablet by mouth all other days in the evening buspirone 10 mg tablet 10 mg PO BID risperidone 0.5 mg tablet 0.5 mg PO HS ezetimibe 10 mg tablet 10 mg PO DAILY diclofenac sodium 1 % gel 2 g TOPICAL BID Rx Instructions: apply to right knee aspirin 81 mg Tablet,Delayed Release (Dr/Ec) 81 mg PO DAILY Discharge Orders: Discharge Order (Routine); Ordered 05/10/22 Ordered By: Medhat Moody Admission Data Admit Date/Time: 05/08/22 15:59 Attending Provider: Medhat Moody Admit Provider: Medhat Moody Primary Care Provider: Mitchel Brown Other Providers: Medhat Moody ; Maxx Carroll ; Sonido Adams Other Interventions: Discharge Summary Assessment (RN) Last Done: 05/10/22 13:00
[2022-05-10 13:01] LABS: INR > 9.6 (0.9-1.1)
--- NOTE | 2022-05-10 13:53 | Electrocardiogram Report ---
Test Reason : Blood Pressure : / mmHG Vent. Rate : 117 BPM Atrial Rate : 119 BPM P-R Int : 104 ms QRS Dur : 146 ms QT Int : 392 ms P-R-T Axes : 000 -47 134 degrees QTc Int : 546 ms Probable atrial flutter with 2:1 AV conduction Premature ventricular complexes Left axis deviation Non-specific intra-ventricular conduction block Abnormal ECG When compared with ECG of 08-MAY-2022 18:39, No significant change Confirmed by Michele Alston ([id number]) on 05/10/2022 1:53:34 PM Referred By: REFERRED SELF Confirmed By:Michele Alston
== END 2022-05-10 15:00 | disposition short-term general hospital (02) | DRG 871 ==
LOC: ED 12:20 → 1E 15:59